=== PATIENT | male | born 1940 | race Caucasian/White ===

== ENCOUNTER 2017-09-10 11:13 | Emergency (ER) | payer MEDICARE, BC ==
[2017-09-10 11:32] VITALS: BP 00/00
--- NOTE | 2017-09-10 12:48 | RAD ---
HISTORY: Pain and swelling COMPARISONS: None VIEWS: 3, Frontal, lateral, and oblique views of the second digit of the left hand FINDINGS: BONE DENSITY: Normal. BONES: There is no displaced fracture. 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 There is osteoarthritis of the first CMC joint. ALIGNMENT: There is no dislocation. SOFT TISSUES: Unremarkable. OTHER FINDINGS: None. IMPRESSION: OSTEOARTHRITIS. NO ACUTE OSSEOUS INJURY. IF SYMPTOMS PERSIST, RECOMMEND REPEAT IMAGING.
--- NOTE | 2017-09-10 13:26 | UC ---
Howie Jackson Stephanie, [facility] on 09/10/17 at 1321 . Hand/Wrist HPI - HPI Summary HPI Summary: In- room note: The pt is a 77 y/o M presenting to with c/o swelling to his index finger on his L hand that began on 09/05/17. The pt states he poked his finger with a needle of a glucose monitor 1 week ago. Swelling began 5 days ago and has enlarged over the week. The pt has iced it and used heat on it however symptoms have not lessened. The pt states his last A1c was 7. note: Temp 99.1 F. 10/10 pain. Visit hx HTN, type 2 diabetes; on insulin and hydrochlorothiazide. No allergies to abx. Nurse Note: pt states he has a sore and swollen lt 2nd finger. pt states that some time on tuesday he poked himself with an insulin needle of his own that he had already used and he is unsure if this was even the finger. he states this finger began to hurt and to swell just after this incident. pt has no hx of gout. - History Of Current Complaint Chief Complaint: UCUpperExtremity Stated Complaint: FINGER PAIN Time Seen by Provider: 09/10/17 12:21 Hx Obtained From: Patient ?: No Onset/Duration: Gradual Onset, Lasting Days - 5, Still Present Severity Currently: Moderate Pain Intensity: 10 Pain Scale Used: 0-10 Numeric Aggravating Factor(s): Other - NOTHING Alleviating Factor(s): Nothing Associated Signs And Symptoms: Positive: Swelling, Redness - Allergies/Home Medications Allergies/Adverse Reactions: Allergies Allergy/AdvReac Type Severity Reaction Status Date / Time codeine Allergy Nausea Verified 09/10/17 11:33 metformin Allergy Diarrhea Verified 09/10/17 11:33 PMH/Surg Hx/FS Hx/Imm Hx Endocrine History: Diabetes Cardiovascular History: Cardiac Disease, Other Other Cardiovascular History: LEAKY VALVE, HEART MURMUR - Surgical History Surgical History: Yes Surgery Procedure, Year, and Place: BILAT ROTATOR CUFF SURGERIES [facility]. HEMORRHOIDECTOMY [facility] - Family History Known Family History: Positive: Diabetes, Other - CHF - Social History Occupation: Retired Lives: With Family Alcohol Use: Weekly Alcohol Amount: 4 NIGHTS/WEEK Substance Use Type: None Smoking Status (MU): Former Smoker Have You Smoked in the Last Year: No When Did the Patient Quit Smoking/Using Tobacco: 40 YRS AGO Review of Systems Constitutional: Negative Skin: Other - SWELLING AND ERYTHEMA OVER INDEX FINGER OF L HAND Eyes: Negative ENT: Negative Respiratory: Negative Cardiovascular: Negative Gastrointestinal: Negative Genitourinary: Negative Motor: Negative Neurovascular: Negative Musculoskeletal: Negative Neurological: Negative Psychological: Negative All Other Systems Reviewed And Are Negative: Yes Physical Exam - Summary Physical Exam Summary: Appearance: The patient is well-appearing, is in no pain distress, and is well- nourished. Eyes: Conjunctiva are clear. ENT: The hearing is grossly normal, the pharynx is normal, and the TMs are normal. There is no muffled or hoarse voice. Neck: The neck is supple and there is no lymphadenopathy. Respiratory: The chest is nontender. The lungs are clear, there are normal breath sounds, and there is no respiratory distress. Cardiovascular: Heart is regular rate and rhythm. 2/6 SYSTOLIC EJECTION MURMUR THAT RADIATES TO L NECK. Abdomen: The abdomen is soft and nontender. There is no organomegaly. Bowel sounds: present Musculoskeletal: Strength is intact. The patient moves all extremities. Neurological: The patient is alert. Psychological: The patient displays age appropriate behavior Skin: Negative for rashes. L INDEX FINGER SHOWS MODERATE SWELLING AT THE DIP WITH RESTRICTED FLEXION, AND FULL EXTENSION. THERES NO VOLAR PAIN ON THE FAT PAD OF THE DISTAL DIGIT. PAIN TO PALPATION IS PRIMARILY ON THE DORSUM AND THE ULNAR ASPECT OF THE L INDEX FINGER. THERES NO ASCENDING LYMPHANIGITIS OR CELLULITIS. THERE IS BRICK CAPILLARY REFILL. NO TENDERNESS OVER FLEXOR OR EXTENSOR TENDONS. Triage Information Reviewed: Yes Vital Signs: Initial Vital Signs Temp 99.1 F 09/10/17 11:27 Pulse 64 09/10/17 11:27 Resp 18 09/10/17 11:27 BP 00/00 09/10/17 11:27 Pulse Ox 99 09/10/17 11:27 Vital Signs Reviewed: Yes Diagnostics - Radiology Finger XRay Xray Interpretation: No Acute Changes Radiology Interpretation Completed By: Radiologist - OSTEOARTHRITIS. NO ACUTE OSSEOUS INJURY. IF SYMPTOMS PERSIST, RECOMMEND REPEAT IMAGING. physician has reviewed this report. Hand/Wrist Course/Dx - Course Course Of Treatment: 77 y/o M type 2 diabetic with evident cellulitis on dorsum of the L index finger, no ascending cellulitis or lymphangitis. physician will treat the pt for a non-purulent cellulitis with Keflex 500 mg 4x per day for 7 days. Medications have been included in the original chart and reviewed. - Differential Dx/Diagnosis Differential Diagnosis/HQI/PQRI: Other - cellulitis purulent vs non-purulent Provider Diagnoses: R index finger, non-purulent cellulitis in a type 2 diabetic Discharge - Sign-Out/Discharge Documenting (check all that apply): Discharge/Admit/Transfer - Discharge Plan Condition: Stable Disposition: HOME Prescriptions: Cephalexin CAP* [Keflex 500 CAP*] 500 mg PO QID #28 cap MDD 4 Patient Education Materials: Cellulitis (ED) Referrals: Noa Fernandez MD [Primary Care Provider] - 3 Days Additional Instructions: WE DISCUSSED: 1. You have a skin infection. 2. Recheck if you are not improving in 2 days. You may need another antibiotic. 3. Keflex 500mg, 4 times a day for 7 days. 4. Elevate. Warm moist heat to area for 10 minutes every 2 hours. 5. Call me Tuesday if you have any questions or concerns. - Billing Disposition and Condition Condition: STABLE Disposition: HOME The documentation as recorded by the Howie soriano Stephanie accurately reflects the service I personally performed and the decisions made by me, Bc Ann MD.
== END 2017-09-10 13:31 | disposition home or self-care (01) ==
LOC: UCEAST 11:13
DX: L03.011 Cellulitis of right finger (principal); E11.9 Type 2 diabetes mellitus without complications; Z79.4 Long term (current) use of insulin; I34.0 Nonrheumatic mitral (valve) insufficiency; R01.1 Cardiac murmur, unspecified; Z88.5 Allergy status to narcotic agent; Z88.8 Allergy status to other drugs, medicaments and biological substances; Z87.891 Personal history of nicotine dependence
CPT/HCPCS: 73140; 99212; G0463

== ENCOUNTER 2017-09-29 13:22 | Day surgery (SDC) | payer MEDICARE, OTHER ==
[~2017-09-29 13:22] MED LIST: Buffered Lidocaine 0.9% SYRIN* 5 ML/SYR SYRINGE INTRADERM ONE; Famotidine IV* 10 MG/ML 2 ML (20 mg) IV ONE; Famotidine IV* 10 MG/ML 2 ML (20 mg) ONE
[2017-09-29] MEDS ORDERED: Bupivacaine 0.25% SDV* 30 ML ONE ×2 (15:46→16:28)
[2017-09-29 17:16] VITALS: BP 167/67
--- NOTE | 2017-10-01 08:49 | OP ---
DATE OF OPERATION: 09/29/17 - [facility] DATE OF : 38 SURGEON: Jorden Silva MD AERIAL HURRICANE HUNTER: ELIZABETH Ledesma ANESTHESIOLOGIST: None. ANESTHESIA: Local only with digital block performed via 0.25% plain Marcaine. PRE-OP DIAGNOSIS: Concern for left index finger middle phalanx osteomyelitis, cannot rule out gout of the distal interphalangeal joint. 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 OPERATIVE PROCEDURE: 1. Chandler of bone culture distal aspect of left index finger middle phalanx together with specimen sent for permanent pathology. 2. Attempted aspiration of the left index finger distal interphalangeal joint. INDICATIONS: Waylon has had quite a bit of left index finger pain. He is a diabetic. His MRI findings were concerning for osteomyelitis. I was in communication with his primary care doctor, Dr. Ladarius Garcia, and infectious disease doctor, Dr. Patel. Together we had decided and they wanted me to see if I can get a bone culture and some specimen for permanent pathology. Dr. Patel asked to see if I could get some fluid out of the DIP joint to send for crystal analysis. I told them that it is difficult to get any fluid out of the DIP joint, but I would certainly try. ESTIMATED BLOOD LOSS: 1 mL. COMPLICATIONS: None. FINDINGS: There was some inflamed-looking periarticular soft tissue. The bone was actually quite sclerotic. The DIP joint aspiration was dry. DESCRIPTION OF PROCEDURE: Waylon was seen in the preoperative holding area. The correct side, site, and procedure were identified. We came back to the operating room where the digital block was performed with 0.25% plain Marcaine. The hand was prepped and draped in the usual fashion. A time-out was performed. I began by placing a Tourni-Cot on the index finger and this was left on proximally throughout the case. I then made an incision over the dorsal ulnar aspect of the middle phalanx. This was teed back transversely over about half the course of the DIP joint. Full-thickness flaps were raised. The extensor tendon was exposed, the collateral ligament was exposed. I brought in first a 1 -cc syringe with a 27-gauge needle and had a dry aspiration. I then changed this for a 3-cc syringe with a 25- gauge needle and again I had a dry aspiration. The needle was definitely in the joint, there was simply no fluid to be aspirated. I then raised subperiosteal flap off the dorsal ulnar aspect of the middle phalanx. I used a K-wire to open the bony cortex in a couple of spots. Once I had a cortical window, I used the microcurette to obtain bone for culture as well as for permanent pathology. Additionally, there was some very inflamed periarticular soft tissue that I had sent for culture. Once I had procured the specimens, I irrigated out the wound. The skin was closed with 4-0 nylon suture. Wound was dressed with soft dressings. The finger pinked up immediately after the Tourni-Cot was removed. He was taken to the recovery room in stable condition. [id number]/[facility] #: [id number] FAVIOLA
== END 2017-09-29 17:25 | disposition home or self-care (01) ==
LOC: OREAST 13:22
PROVIDERS: ATTEND Orthopaedic Surgery Hand Surgery
DX: M86.242 Subacute osteomyelitis, left hand (principal); E11.9 Type 2 diabetes mellitus without complications; Z79.4 Long term (current) use of insulin; I10 Essential (primary) hypertension; G47.33 Obstructive sleep apnea (adult) (pediatric); I25.10 Atherosclerotic heart disease of native coronary artery without angina pectoris; E78.5 Hyperlipidemia, unspecified; G62.9 Polyneuropathy, unspecified; Z87.891 Personal history of nicotine dependence
CPT/HCPCS: 87070; 87073; 87205; 88304; 88311; C1776

== ENCOUNTER → 2018-02-05 14:34 | Emergency (ER) | payer MEDICARE, BC ==
[~2018-02-05 14:34] MED LIST changes: -Buffered Lidocaine 0.9% SYRIN* 5 ML/SYR SYRINGE INTRADERM ONE; -Famotidine IV* 10 MG/ML 2 ML (20 mg) IV ONE; -Famotidine IV* 10 MG/ML 2 ML (20 mg) ONE; +Ibuprofen TAB* 600 MG ONE; +Ibuprofen TAB* 600 MG PO ONE
--- NOTE | 2018-02-05 16:09 | ED ---
Throat Pain/Nasal Congestion - HPI Summary HPI Summary: The patient is a 78 y/o M presenting to [facility] with a chief complaint of an extremely sore throat with erythema starting 3 days ago. The pain is currently rated 8/10 in severity. He states that he's never had a sore throat that hurts as bad as this one. He additionally reports that he has nasal congestion and a productive cough that started this morning. He has hx of diabetes and HTN. - History of Current Complaint Chief Complaint: EDThroatPain Time Seen by Provider: 02/05/18 15:31 Hx Obtained From: Patient Onset/Duration: Lasting Days - 3 days, Still Present Severity: Severe Cough: Productive - Allergies/Home Medications Allergies/Adverse Reactions: Allergies Allergy/AdvReac Type Severity Reaction Status Date / Time codeine Allergy Nausea Verified 02/05/18 14:43 metformin Allergy Diarrhea Verified 02/05/18 14:43 PMH/Surg Hx/FS Hx/Imm Hx Endocrine/Hematology History: Reports: Hx Diabetes - II requiring insulin Cardiovascular History: Reports: Hx Coronary Artery Disease - CATH 2011 NO STENTS, Hx Hypertension - WELL CONTROLLED Denies: Hx Pacemaker/ICD Respiratory History: Reports: Hx Sleep Apnea GI History: Denies: Hx Gastrointestinal Bleed, Hx Ulcer History: Denies: Hx Renal Disease Musculoskeletal History: Denies: Hx Rheumatoid Arthritis, Hx Osteoporosis Sensory History: Reports: Hx Cataracts - LEFT, Hx Contacts or Glasses - GLASSES Denies: Hx Hearing Aid Opthamlomology History: Reports: Hx Cataracts - LEFT, Hx Contacts or Glasses - GLASSES Psychiatric History: Denies: Hx Panic Disorder - Surgical History Surgery Procedure, Year, and Place: BILAT ROTATOR CUFF SURGERIES [facility] [place]. HEMORRHOIDECTOMY [facility] [place] Hx Anesthesia Reactions: No Infectious Disease History: No Infectious Disease History: Denies: Traveled Outside the [place] in Last 30 Days - Family History Known Family History: Positive: Diabetes, Other - CHF - Social History Alcohol Use: Occasionally Alcohol Amount: 4 NIGHTS/WEEK Substance Use Type: Reports: None Hx Tobacco Use: No Smoking Status (MU): Former Smoker Have You Smoked in the Last Year: No Review of Systems Positive: Sore Throat - with erythema, Other - nasal congestion Positive: Cough - productive All Other Systems Reviewed And Are Negative: Yes Physical Exam - Summary Physical Exam Summary: Appearance: The patient is well-nourished in no acute distress and in no acute pain. Skin: The skin is warm and dry and skin color reflects adequate perfusion. HEENT: The head is normocephalic and atraumatic. The pupils are equal and reactive. The conjunctivae are clear and without drainage. Nares are patent with congestion. Mouth reveals moist mucous membranes and the throat is erythematous with mild anterior cervical lymphadenopathy but no exudates. The external ears are intact. The ear canals are patent and without drainage. The tympanic membranes are intact. Neck: The neck is supple with full range of motion and non-tender. There are no carotid bruits. There is no neck vein distension. Respiratory: Chest is non-tender. Lungs are clear to auscultation and breath sounds are symmetrical and equal. Cardiovascular: Heart is regular rate and rhythm. There is no murmur or rub auscultated. There is no peripheral edema and pulses are symmetrical and equal. Abdomen: The abdomen is soft and non-tender. There are normal bowel sounds heard in all four quadrants and there is no organomegaly palpated. Musculoskeletal: There is no back tenderness noted. Extremities are non-tender with full range of motion. There is good capillary refill. There is no peripheral edema or calf tenderness elicited. Neurological: Patient is alert and oriented to person, place and time. The patient has symmetrical motor strength in all four extremities. Cranial nerves are grossly intact. Deep tendon reflexes are symmetrical and equal in all four extremities. Psychiatric: The patient has an appropriate affect and does not exhibit any anxiety or depression. Triage Information Reviewed: Yes Vital Signs On Initial Exam: Initial Vitals Temp Pulse Resp BP Pulse Ox 98.1 F 86 18 137/48 95 02/05/18 14:42 02/05/18 14:42 02/05/18 14:42 02/05/18 14:42 02/05/18 14:42 Vital Signs Reviewed: Yes Diagnostics - Vital Signs Vital Signs Temp Pulse Resp BP Pulse Ox 02/05/18 14:42 98.1 F 86 18 137/48 95 - Laboratory Lab Results: Lab Results 02/05/18 Range/Units 15:38 Group A Strep Rapid Negative (Negative) Lab Statement: Any lab studies that have been ordered have been reviewed, and results considered in the medical decision making process. - Radiology CXR Xray Interpretation: No Acute Changes - No active cardiopulmonary disease is noted. ED physician has reviewed this report. Radiology Interpretation Completed By: Radiologist Re-Evaluation - Re-Evaluation First Eval Re-Evaluation Time: 17:20 Change: Improved Comment: I spoke with the patient about CXR and lab results. He will be discharged home. EENT Course/Dx - Course Course Of Treatment: Mr. Dillard presented to the emergency department complaining of a sore throat for couple of days and now a cough. He is also congested nasally. He looked fairly miserable but his vitals are stable. His rapid strep test was negative. Chest x-ray was negative for any acute process. This is most likely a viral syndrome. - Diagnoses Provider Diagnoses: Viral syndrome Discharge - Sign-Out/Discharge Documenting (check all that apply): Patient Departure - Patient will be discharged home. - Discharge Plan Condition: Stable Disposition: HOME Patient Education Materials: Viral Syndrome (ED) Referrals: Noa Fernandez MD [Primary Care Provider] - 3 Days Additional Instructions: Please follow up with your primary care provider in 2-3 days. Return to the emergency department for any new or worsening symptoms. - Billing Disposition and Condition Condition: STABLE Disposition: Home - Attestation Statements Document Initiated by Scribe: Yes Documenting Scribe: Marium Zamorano Provider For Whom Marciaibfrank is Documenting (Include Credential): Dr. Kenny Ortega MD Scribe Attestation: Marium Jackson scribed for Dr. Kenny Ortega MD on 02/05/18 at 1859. Scribe Documentation Reviewed: Yes Provider Attestation: The documentation as recorded by the Marium soriano accurately reflects the service I personally performed and the decisions made by me, Dr. Kenny Ortega MD
--- NOTE | 2018-02-05 16:51 | RAD ---
Indication: Cough. 2 views of the chest including dual energy PA views demonstrate no mediastinal shift. Heart is of normal size and configuration. Lungs are clear. IMPRESSION: No active cardiopulmonary disease is noted.
[2018-02-05 17:34] VITALS: BP 156/64
== END | disposition home or self-care (01) ==
LOC: ED 14:34
DX: B34.9 Viral infection, unspecified (principal); Z87.891 Personal history of nicotine dependence; E11.9 Type 2 diabetes mellitus without complications; I10 Essential (primary) hypertension; Z79.4 Long term (current) use of insulin
CPT/HCPCS: 71046; 87651; 99282; A9270-GY

== ENCOUNTER 2018-02-06 16:24 | Inpatient (IN) | payer MEDICARE, BC ==
[2018-02-06 17:13] LABS: ABS Basophils 0 10^3/ul (0-0.2); ABS Eosinophils 0 10^3/ul (0-0.6); ABS Lymphocytes 0.5 10^3/ul (1.0-4.8); ABS Neutrophils 10.1 10^3/ul (1.5-7.7); ABS Nucleated RBC 0 10^3/ul; Eosinophil % 0 % (0-6); Hematocrit 39 % (42-52); Hemoglobin 13.2 g/dl (14.0-18.0); Lymphocyte % 4.2 % (25-47); Mean Corpuscular HGB Conc 34 g/dl (31-36); Mean Corpuscular Hemoglobin 32 pg (27-31); Mean Corpuscular Volume 94 fL (80-94); Mean Platelet Volume 9.8 um3 (7.4-10.4); Nucleated Red Blood Cells % 0; Platelet Count 170 10^3/ul (150-450); Red Blood Count 4.11 10^6/ul (4.00-5.40); Red Cell Distribution Width 14 % (10.5-15); White Blood Count 11.7 10^3/ul (3.5-10.8)
--- NOTE | 2018-02-06 17:20 | RAD ---
Indication: Cough, shortness of breath. 2 views of the chest are reviewed. There is pleural thickening in the right lower lung base. Linear density in the right midlung field likely representing some atelectasis. This was not present on February 05, 2018. Left lung field is clear. IMPRESSION: Minimal atelectasis in the left midlung zone.
[2018-02-06] MEDS ORDERED: Albuterol/Ipratropium NEB.SOL* Albuterol 2.5 MG/Ipratropium 0.5 MG 3 ML INH ONE (18:12)
[2018-02-06] MEDS ORDERED: NS 0.9% 1000 ML* 1,000 ML IV ONE (18:12)
[2018-02-06] MEDS ORDERED: Levofloxacin 750 MG IVPREMIX(* 750 MG/150 ML BAG IVPB ONE (18:14)
--- NOTE | 2018-02-06 18:21 | ED ---
Respiratory - HPI Summary HPI Summary: Pt is a 78 year old M presenting to the ED with a chief respiratory complaint. The pt was here yesterday for a very productive cough onset about 1 week ago. The pt is currently at 90% on 2L of O2. The pt reports minimal post nasal drip, cough, congestion, sore throat, fevers, and fatigue. The pt reports a hx of sleep apnea and heart valve problems. The pt is not a smoker and no one else in the house is sick. He has gotten his flu and pneumonia shots. The pt denies CHF or PA. The pt reports a hx of HTN and IDDM. - History of Current Complaint Chief Complaint: EDRespiratoryDistress Stated Complaint: CONGESTION/FEVER/COUGH Time Seen by Provider: 02/06/18 18:00 Hx Obtained From: Patient Onset/Duration: Gradual Onset, Lasting Weeks, Still Present Initial Severity: Moderate Current Severity: Moderate Pain Intensity: 0 Character: Wheezing, Cough (Productive), Dyspnea at Rest Sputum Amount: Large Sputum Color: Yellow Aggravating Factor(s): Nothing Alleviating Factor(s): Nothing Associated Signs and Symptoms: Fever, SOB, Wheezing, Nasal Congestion - Allergy/Home Medications Allergies/Adverse Reactions: Allergies Allergy/AdvReac Type Severity Reaction Status Date / Time codeine Allergy Nausea Verified 02/06/18 17:03 metformin Allergy Diarrhea Verified 02/06/18 17:03 Home Medications: Home Medications Colchicine* [Colcrys*] 0.6 mg PO DAILY PRN 02/06/18 [History Confirmed 02/06/18] Cyanocobalamin TAB* [Vitamin B12 TAB*] 2,000 mcg PO DAILY 02/06/18 [History Confirmed 02/06/18] Doxazosin TAB* [Cardura TAB*] 2 mg PO BEDTIME 02/06/18 [History Confirmed ] Irbesartan (NF) [Avapro (NF)] 300 mg PO DAILY 02/06/18 [History Confirmed ] Multivitamins/Minerals TAB* [Theragran/minerals TAB*] 1 tab PO DAILY 02/06/18 [ History Confirmed 02/06/18] [place]-3 Fatty Acids (Nf) [Fish Oil (NF)] 1,000 mg PO DAILY 02/06/18 [History Confirmed 02/06/18] traMADol TAB* [Ultram*] 50 - 100 mg PO Q6HR PRN 02/06/18 [History Confirmed ] PMH/Surg Hx/FS Hx/Imm Hx Previously Healthy: No Endocrine/Hematology History: Reports: Hx Diabetes - II requiring insulin Cardiovascular History: Reports: Hx Coronary Artery Disease - CATH 2011 NO STENTS, Hx Hypertension - WELL CONTROLLED, Other Cardiovascular Problems/ Disorders - MURMUR, "LEAKY VALVE" Denies: Hx Congestive Heart Failure, Hx Myocardial Infarction, Hx Pacemaker/ ICD Respiratory History: Reports: Hx Sleep Apnea GI History: Denies: Hx Gastrointestinal Bleed, Hx Ulcer History: Denies: Hx Renal Disease Musculoskeletal History: Denies: Hx Rheumatoid Arthritis, Hx Osteoporosis Sensory History: Reports: Hx Cataracts - LEFT, Hx Contacts or Glasses - GLASSES Denies: Hx Hearing Aid Opthamlomology History: Reports: Hx Cataracts - LEFT, Hx Contacts or Glasses - GLASSES Psychiatric History: Denies: Hx Panic Disorder - Surgical History Surgery Procedure, Year, and Place: BILAT ROTATOR CUFF SURGERIES [facility]. HEMORRHOIDECTOMY [facility] Hx Anesthesia Reactions: No Infectious Disease History: No Infectious Disease History: Denies: Traveled Outside the [place] in Last 30 Days - Family History Known Family History: Positive: Diabetes, Other - CHF - Social History Alcohol Use: Weekly Alcohol Amount: 4 NIGHTS/WEEK Substance Use Type: Reports: None Hx Tobacco Use: No Smoking Status (MU): Former Smoker Have You Smoked in the Last Year: No Review of Systems Positive: Fever Positive: Nasal Discharge Positive: Shortness Of Breath, Cough Neurological: Other - fatigue All Other Systems Reviewed And Are Negative: Yes Physical Exam - Summary Physical Exam Summary: Appearance: Well appearing, no pain distress Skin: warm, dry, reflects adequate perfusion Head/face: surgical scar on R forehead. Eyes: EOMI, KIMMY ENT: productive yellowish sputum, throat mildly erythematous, clear nasal discharge. Neck: supple, non-tender Respiratory: Coarse breath sounds in the bases of the lungs Cardiovascular: RRR, pulses symmetrical Abdomen: non-tender, soft Bowel Sounds: present Musculoskeletal: normal, strength/ROM intact, no lower extremity edema or JVD Neuro: normal, sensory motor intact, A&Ox3 Triage Information Reviewed: Yes Vital Signs On Initial Exam: Initial Vitals Temp Pulse Resp BP Pulse Ox 99.7 F 78 20 178/53 95 02/06/18 16:58 02/06/18 16:58 10/15/18 16:58 02/06/18 16:58 02/06/18 16:58 Vital Signs Reviewed: Yes Diagnostics - Vital Signs Vital Signs Temp Pulse Resp BP Pulse Ox 02/06/18 18:05 89 17 171/65 91 02/06/18 18:04 86 20 91 02/06/18 16:58 99.7 F 78 20 178/53 95 - Laboratory Lab Results: Lab Results 02/06/18 02/06/18 02/06/18 Range/Units 16:40 16:40 16:40 WBC 11.7 H (3.5-10.8) 10^3/ul RBC 4.11 (4.00-5.40) 10^6/ul Hgb 13.2 L (14.0-18.0) g/dl Hct 39 L (42-52) % MCV 94 (80-94) fL MCH 32 H (27-31) pg MCHC 34 (31-36) g/dl RDW 14 (10.5-15) % Plt Count 170 (150-450) 10^3/ul MPV 9.8 (7.4-10.4) um3 Neut % (Auto) 86.6 H (38-83) % Lymph % (Auto) 4.2 L (25-47) % Whitfield % (Auto) 9.0 H (0-7) % Eos % (Auto) 0 (0-6) % Baso % (Auto) 0.2 (0-2) % Absolute Neuts (auto) 10.1 H (1.5-7.7) 10^3/ul Absolute Lymphs (auto) 0.5 L (1.0-4.8) 10^3/ul Absolute Monos (auto) 1.0 H (0-0.8) 10^3/ul Absolute Eos (auto) 0 (0-0.6) 10^3/ul Absolute Basos (auto) 0 (0-0.2) 10^3/ul Absolute Nucleated RBC 0 10^3/ul Nucleated RBC % 0 Lactic Acid 0.9 (0.5-2.0) mmol/L Troponin I 0.06 H* (<0.04) ng/mL C-Reactive Protein 139.24 H (<8.01) mg/L B-Natriuretic Peptide ( - 100) pg/mL 02/06/18 Range/Units 16:40 WBC (3.5-10.8) 10^3/ul RBC (4.00-5.40) 10^6/ul Hgb (14.0-18.0) g/dl Hct (42-52) % MCV (80-94) fL MCH (27-31) pg MCHC (31-36) g/dl RDW (10.5-15) % Plt Count (150-450) 10^3/ul MPV (7.4-10.4) um3 Neut % (Auto) (38-83) % Lymph % (Auto) (25-47) % Whitfield % (Auto) (0-7) % Eos % (Auto) (0-6) % Baso % (Auto) (0-2) % Absolute Neuts (auto) (1.5-7.7) 10^3/ul Absolute Lymphs (auto) (1.0-4.8) 10^3/ul Absolute Monos (auto) (0-0.8) 10^3/ul Absolute Eos (auto) (0-0.6) 10^3/ul Absolute Basos (auto) (0-0.2) 10^3/ul Absolute Nucleated RBC 10^3/ul Nucleated RBC % Lactic Acid (0.5-2.0) mmol/L Troponin I (<0.04) ng/mL C-Reactive Protein (<8.01) mg/L B-Natriuretic Peptide 233 H ( - 100) pg/mL Result Diagrams: 02/06/18 16:40 02/06/18 16:40 Lab Statement: Any lab studies that have been ordered have been reviewed, and results considered in the medical decision making process. - Radiology 1631 - CXR Xray Interpretation: Positive (See Comments) - Minimal atelectasis in the left midlung zone Radiology Interpretation Completed By: Radiologist - ED physician has reviewed this report. - CT Chest CT CT Interpretation: Positive (See Comments) - Mild consolidation. Not yet reviewed by radiologist. CT Interpretation Completed By: ED Physician Disposition - Course Course Of Treatment: Patient with harsh cough, body aches, fever and cough that is productive of a thick yellow sputum. There is no definite infiltrate on x- ray and so a CAT scan was performed. This reading was pending at time of disposition. The patient requires admission given that he is hypoxic into the 80s. He requires 4 L of oxygen to bring him above 93%. I discussed the case with the hospitalist who will admit. Working diagnosis is pneumonia, hypoxia. - Differential Dx - Cardiopulmonary Differential Diagnoses - Cardiopulmonary: Other - Bacterial pneumonia, viral pneumonia, congestive heart failure, sepsis syndrome - Diagnoses Provider Diagnoses: Community acquired pneumonia, Hypoxia - Critical Care Time Critical Care Time: 30-74 min - Critical care time is exclusive of separately billable procedures Discharge - Sign-Out/Discharge Documenting (check all that apply): Patient Departure - admit - Discharge Plan Condition: Fair Disposition: ADMITTED TO [facility] Referrals: Noa Fernandez MD [Primary Care Provider] - - Billing Disposition and Condition Condition: FAIR Disposition: Admitted to [facility] - Attestation Statements Document Initiated by Scribe: Yes Documenting Scribe: Valerie Hull Provider For Whom Scribe is Documenting (Include Credential): Bob Bertrand MD. Scribe Attestation: Valerie Jackson, scribed for Bob Bertrand MD. on 02/06/18 at 1900. Scribe Documentation Reviewed: Yes Provider Attestation: The documentation as recorded by the bautistaibValerie marie accurately reflects the service I personally performed and the decisions made by , Bob Bertrand MD. Consult Consult: [id number] Greer who will be admitting the pt to the hospital.
[2018-02-06 18:54] LABS: EGFR Non-African American 63.2 (>60)
--- NOTE | 2018-02-06 19:12 | RAD ---
EXAM: CT Chest Without Intravenous Contrast EXAM DATE/TIME: 02/06/2018 6:29 PM CLINICAL HISTORY: 78 years old, male; Signs and symptoms; Cough; Additional info: Hypoxia, productive cough TECHNIQUE: Axial computed tomography images of the chest without intravenous contrast. All CT scans at this facility use at least one of these dose optimization techniques: automated exposure control; mA and/or kV adjustment per patient size (includes targeted exams where dose is matched to clinical indication); or iterative reconstruction. Coronal and sagittal reformatted images were created and reviewed. COMPARISON: DX CXR CHEST PA LAT 2 VWS 02/05/2018 4:01 PM FINDINGS: Thyroid: Mildly heterogeneous thyroid with few dystrophic calcifications. No focal nodules. Lungs: Right lung and left lower lobe perihilar mainly centrilobular nodules. For example nodules apical posterior segment right upper lobe measuring 0.7 cm (series 3, image 22) and posterior basal segment right lower lobe measuring 1.7 cm (series 3, image 35). Associated peribronchial thickening. No bronchiectasis or luminal filling defects. No masses or consolidation. Pleural space: Normal. No pneumothorax. No pleural effusion. Heart: There is severe atherosclerotic calcification of the coronary arteries. Aorta: The aorta demonstrates moderate atherosclerotic calcification. Lymph nodes: Normal. No enlarged lymph nodes. Bones/joints: The thoracic spine demonstrates moderate degenerative changes at multiple levels. Mild bilateral shoulder primary osteoarthritis. No fractures. No suspicious bone lesions. Soft tissues: Normal. Gallbladder and bile ducts: Calcified gallstones with no pericholecystic fluid or gall bladder wall thickening. Kidneys and ureters: Partially visualized right renal simple cyst measures 6.9 cm (series 2, image 71). Smaller fluid attenuating exophytic focus left superior pole measures 1.2 cm (series 2, image 67). IMPRESSION: 1. Lung findings with etiologies including pneumonia, hypersensitivity pneumonitis, respiratory bronchiolitis, and less likely milliary infection including TB and fungus. 2. Cholelithiasis. 3. Bilateral Bosniak type II renal cysts. No followup is indicated. To contact [facility] with a general question: [facility] - [phone] For direct physician to physician contact: Physician Hotline - [phone] [facility] ([facility] Facility ID #[id number])
[2018-02-06] MEDS ORDERED: Albuterol/Ipratropium NEB.SOL* Albuterol 2.5 MG/Ipratropium 0.5 MG 3 ML INH PRN (19:26)
[2018-02-06] MEDS ORDERED: Magnesium Hydroxide LIQ* 30 ML UDC PO PRN (19:26)
[2018-02-06] MEDS ORDERED: Al Hydrox/Mg Hydrox/Simet LIQ* 30 ML UDC PO PRN (19:26)
[2018-02-06] MEDS ORDERED: Ondansetron INJ* 2 MG/ML VIAL IV PRN (19:26)
[2018-02-06] MEDS ORDERED: Dextrose 50% Syringe 50 ML* 25 GM/50 ML SYRINGE IV PUSH PRN (19:42)
[2018-02-06] MEDS ORDERED: Insulin GLARGINE(*) 1 UNITS UNIT SUBCUT SCH (21:00)
--- NOTE | 2018-02-06 21:57 | HP ---
AMENDED REPORT NOW INCLUDES COSIGNER DESIGNATION CC: Noa Fernandez MD * HISTORY AND PHYSICAL: DATE OF ADMISSION: 02/06/18 PATIENT OF ATTENDING HOSPITALIST: Dr. Daysi Greer.* (DICTATED BY ELIZABETH ENAMORADO) PRIMARY CARE PROVIDER: Noa Fernandez MD ATTENDING HOSPITALIST WHILE PATIENT HERE: Dr. Moraima Montague. CHIEF COMPLAINT: Cough and shortness of breath. HISTORY OF PRESENT ILLNESS: Mr. Dillard is a 78-year-old gentleman with a past medical history significant for hypertension, insulin-dependent diabetes mellitus, obstructive sleep apnea, who presented to the emergency room today with a 1-week history of worsening upper respiratory symptoms. The patient informed me that he had symptoms consistent with cold with intermittent dry cough, sore throat, congestion, and fatigue gradually over the past few days, converted to a productive cough with wheezing, difficulty breathing, low-grade fever, and not feeling well at all. He was seen at his primary care physician' s office earlier today and clinical diagnosis of pneumonia was made for which the patient was advised to go to the emergency room for further evaluation. The patient himself denied any chest pain and has no history of asthma or COPD; however, he noticed increasing dyspnea at rest and wheezing as well as productive cough with yellow thick sputum. He denies any history of pneumonia in the past. He did have his pneumonia vaccination recently and had his flu shot for the year. He was evaluated in the emergency room and found to have mild leukocytosis with white count of 11,000. He had a chest x- ray that revealed possible bilateral basilar atelectasis that was not quite conclusive for pneumonia for which a CT scan of the chest was obtained that showed findings consistent with pneumonia and respiratory bronchitis. Given his ongoing symptoms, we were asked to see the patient to consider admission for pneumonia. PAST MEDICAL HISTORY: As mentioned above, significant for hypertension, insulin - dependent diabetes mellitus, obstructive sleep apnea, gouty arthritis. He denies history of coronary artery disease. PAST SURGICAL HISTORY: Significant for: 1. Coronary catheterization with no stenting done. 2. Four separate bilateral shoulder surgery for repair of bilateral rotator cuff. 3. Basal cell carcinoma excision from the scalp about a week ago. CURRENT MEDICATIONS: His medications at home include: 1. Aspirin 81 mg p.o. daily. 2. Lipitor 20 mg p.o. daily. 3. Vitamin D 1000 mcg p.o. daily. 4. Colchicine 0.6 mg p.o. daily. 5. Vitamin B12 2000 mcg p.o. daily. 6. Cardura 2 mg p.o. q.h.s. 7. Eplerenone 50 mg p.o. daily. 8. Felodipine 10 mg p.o. daily. 9. Hydrochlorothiazide 25 mg p.o. daily. 10. Insulin NovoLog 13 units subcu t.i.d. before meals. 11. Insulin Levemir 66 units subcu q.p.m. 12. Irbesartan 300 mg p.o. daily. 13. Multivitamin 1 tablet p.o. daily. 14. [place]-3 fatty acids 1000 mg p.o. daily. 15. Cialis 1 to 2 tablets as needed. 16. Tramadol 50 mg p.o. q.6 hours as needed for pain. ALLERGIES: Include CODEINE, METFORMIN, LABETALOL, and METOPROLOL. FAMILY HISTORY: Reviewed and noncontributory. SOCIAL HISTORY: The patient is a nonsmoker. Denies alcohol intake. He lives with his , who is the healthcare proxy and he wishes to be a full code. REVIEW OF SYSTEMS: See HPI, otherwise 12 points review of system were examined and were essentially negative. PHYSICAL EXAMINATION GENERAL: He is a pleasant, obese, older gentleman in no acute distress or discomfort at the time of admission. VITAL SIGNS: Revealed temperature of 99.7, pulse of 86, blood pressure of 171/ 65, respiration of 17 with O2 sat of 99% on 3 L oxygen via nasal cannula. HEENT: Head is normocephalic, atraumatic. Sclerae anicteric. EOMs intact. Oropharynx is with mild pharyngeal erythema noted. No exudate. NECK: Supple. Trachea midline. No cervical adenopathy or thyromegaly. LUNGS: There are decreased breath sounds noted. There is diffuse mild wheezing more profound at the bases, appeared to be improved after DuoNeb treatment in the emergency room. There are mild bibasilar rhonchi as well with deep inspiration. HEART: Regular rate and rhythm without rubs, murmurs, or gallops. BACK: With normal curvature. No CVA tenderness. ABDOMEN: Soft, nontender, nondistended. There are no hernias, masses, or hepatosplenomegaly. EXTREMITIES: Without cyanosis, clubbing, or edema. NEUROLOGIC: He is awake, alert, and oriented x3. Handgrip is equal bilaterally. Sensation is intact throughout. RECTAL: Exam deferred at this time. LABORATORY WORKUP: CBC with a white count of 11,700, hemoglobin of 13.2, hematocrit of 39, and platelets of 170. Chemistry panel with sodium of 129, potassium 3.9, chloride 94, BUN of 22, and creatinine of 1.12. His glucose is 116. Total bilirubin 2.2. Troponin is elevated at 0.06; however, appeared to be at baseline compared to prior result. C-reactive protein elevated at 139. BNP 233. ACCESSORY DIAGNOSTIC DATA: As mentioned above, chest CT was consistent with pneumonia. EKG with no ST changes. ASSESSMENT: A 78-year-old gentleman with history of hypertension, obstructive sleep apnea, and insulin-dependent diabetes mellitus who presents to the emergency room with a 1-week history of worsening upper respiratory symptoms, found to have productive cough, fever, wheezing, shortness of breath, and CT scan findings consistent with pneumonia for which he will be admitted under hospitalist services for the following assessment and plan. 1. Community-acquired pneumonia. The patient received a dose of Levaquin in the emergency room and we will continue his coverage with Rocephin and azithromycin. We will use supplemental oxygen as needed to maintain his oxygen saturation above 95%. He received 2 DuoNeb nebulizers in the emergency room with improvement in his breathing and we will continue his DuoNeb coverage q.4 hours while he is awake and add prednisone 40 mg daily to help improvement of his respiratory functions. I also added Mucinex to be taken to help secrete his sputum. Right at the moment, his sputum cultures and Gram stains are pending. 2. Hypertension. The patient was hypertensive upon admission. I will continue all his home regimen including hydrochlorothiazide, irbesartan, and felodipine. 3. Hyperlipidemia. I will continue his statin therapy. 4. Insulin-dependent diabetes mellitus. The patient will continue his coverage with Lantus every night as well as lispro per sliding scale q.a.c. and q.h.s. 5. DVT prophylaxis. He is a high risk and will be covered with subcu heparin. 6. Code status. He wishes to be a full code. 7. Disposition. Admit to telemetry for treatment of community-acquired pneumonia. Urine antigen for Legionella and Strep pneumoniae are pending at the time of admission. Continue coverage with ceftriaxone and azithromycin. Symptomatic management with oxygen supplement, cough depressant and await sputum culture and Gram stain. We will follow him up accordingly. TIME SPENT: Approximately 60 minutes were spent admitting this patient for which greater than 50% of that time on taking history and performing physical exam. I went on and discussed the case with my attending, who agreed to plan of care and will follow him up accordingly. ELIZABETH ENAMORADO [id number]/[facility] #: [id number] FAVIOLA
[2018-02-06] MEDS: predniSONE TAB* 20 MG PO SCH (22:12)
[2018-02-06] MEDS: guaiFENesin ER TAB 600 MG PO SCH (22:12)
[2018-02-06] MEDS: Doxazosin TAB* 2 MG PO SCH (22:13)
[2018-02-06] MEDS: Heparin VIAL(*) 5000 UNITS/ML VIAL (FIVE THOUSAND) SUBCUT SCH (22:13)
[2018-02-06] MEDS: Insulin LISPRO* 1 UNITS UNIT SUBCUT SCH (22:37)
[2018-02-06] MEDS: Acetaminophen TAB* 325 MG PO PRN (23:40)
[2018-02-07] MEDS: Benzocaine/Menthol LOZ* 1 LOZENGE PO PRN ×2 (05:07→20:17)
[2018-02-07] MEDS: Heparin VIAL(*) 5000 UNITS/ML VIAL (FIVE THOUSAND) SUBCUT SCH ×3 (05:09→21:12)
[2018-02-07] MEDS: cefTRIAXone(*) 1 GM in NS 0.9% 50 ML* 50 ML IVPB SCH (05:16)
[2018-02-07 06:55] LABS: ABS Basophils 0 10^3/ul (0-0.2); ABS Eosinophils 0 10^3/ul (0-0.6); ABS Lymphocytes 0.3 10^3/ul (1.0-4.8); ABS Monocytes 0.5 10^3/ul (0-0.8); ABS Neutrophils 7.4 10^3/ul (1.5-7.7); ABS Nucleated RBC 0 10^3/ul; Eosinophil % 0 % (0-6); Hematocrit 36 % (42-52); Hemoglobin 12.5 g/dl (14.0-18.0); Mean Corpuscular HGB Conc 35 g/dl (31-36); Mean Corpuscular Hemoglobin 33 pg (27-31); Mean Corpuscular Volume 93 fL (80-94); Mean Platelet Volume 9.8 um3 (7.4-10.4); Nucleated Red Blood Cells % 0; Platelet Count 142 10^3/ul (150-450); Red Blood Count 3.81 10^6/ul (4.00-5.40); Red Cell Distribution Width 14 % (10.5-15); White Blood Count 8.3 10^3/ul (3.5-10.8)
[2018-02-07 06:58] LABS: EGFR Non-African American 56.2 (>60)
[2018-02-07] MEDS: Insulin LISPRO* 1 UNITS UNIT SUBCUT SCH ×5 (08:15→20:18)
[2018-02-07] MEDS: Cholecalciferol TAB* 1000 UNITS PO SCH (08:16)
[2018-02-07] MEDS: Aspirin 81 mg CHEW TAB* 81 MG TAB.CHEW PO SCH (08:16)
[2018-02-07] MEDS: Cyanocobalamin TAB* 500 MCG PO SCH (08:17)
[2018-02-07] MEDS: Hydrochlorothiazide TAB* 25 MG PO SCH (08:17)
[2018-02-07] MEDS: Atorvastatin* 20 MG TAB PO SCH (08:18)
[2018-02-07] MEDS: Losartan TAB* 25 MG PO SCH (08:18)
[2018-02-07] MEDS: guaiFENesin ER TAB 600 MG PO SCH ×2 (08:19→20:17)
[2018-02-07] MEDS: amLODIPine TAB* 5 MG PO SCH (08:19)
[2018-02-07] MEDS: Multivitamins/Minerals TAB PO SCH (08:20)
[2018-02-07] MEDS: predniSONE TAB* 20 MG PO SCH (08:20)
[2018-02-07] MEDS: CMCS Epleronone (NF) 25 MG TAB PO SCH (08:21)
[2018-02-07] MEDS: Azithromycin IV(*) 500 MG in NS 0.9% 250 ML* 250 ML IVPB SCH (08:29)
[2018-02-07] MEDS ORDERED: Magnesium Sulfate 2 GM IV* 2 GM/50 ML BAG IVPB ONE (08:57)
--- NOTE | 2018-02-07 10:08 | PN ---
Subjective Date of Service: 02/07/18 Interval History: Pt resting comfortably on 4L NC. Pt denies shortness of breath at rest, but endorses shortness of breath when OOB. Reports sore throat and cough are better than yesterday, but still producing lots of thick sputum. He says he is able to eat and drink more today than yesterday. Does endorse constipation with last BM 3 days ago. Bowel regimen ordered. Denies chest pain, dizziness, N/V/D, abdominal pain, dysuria, numbness or tingling in extremities. Objective Active Medications: Acetaminophen (Tylenol Tab*) 975 mg PO Q4H PRN PRN Reason: FEVER/PAIN Last Admin: 02/06/18 23:40 Dose: 975 mg Al Hydrox/Mg Hydrox/Simethicone (Maalox Plus*) 30 ml PO Q6H PRN PRN Reason: INDIGESTION Albuterol/Ipratropium (Duoneb (Albuterol 2.5 Mg/Ipratropium 0.5 Mg)) 1 neb INH [id number] AWAKE PRN PRN Reason: sob/wheexing Amlodipine Besylate (Norvasc Tab*) 10 mg PO QAM [facility]; Protocol Last Admin: 02/07/18 08:19 Dose: 10 mg Aspirin (Aspirin 81 Mg Chew Tab*) 81 mg PO QAM [facility] Last Admin: 02/07/18 08:16 Dose: 81 mg Atorvastatin Calcium (Lipitor*) 20 mg PO DAILY [facility] Last Admin: 02/07/18 08:18 Dose: 20 mg Cholecalciferol (Vitamin D Tab*) 1,000 units PO DAILY [facility] Last Admin: 02/07/18 08:16 Dose: 1,000 units Cyanocobalamin (Vitamin B12 Tab*) 2,000 mcg PO DAILY [facility] Last Admin: 02/07/18 08:17 Dose: 2,000 mcg Dextrose (D50w Syringe 50 Ml*) 12.5 gm IV PUSH .FOR FS < 60 - SS PRN PRN Reason: FS < 60 Doxazosin Mesylate (Cardura Tab*) 2 mg PO BEDTIME [facility] Last Admin: 02/06/18 22:13 Dose: 2 mg Eplerenone (Inspra (Nf)) 50 mg PO QAM [facility]; Protocol Last Admin: 10/16/18 08:21 Dose: 50 mg Guaifenesin (Mucinex*) 600 mg PO BID [facility] Last Admin: 02/07/18 08:19 Dose: 600 mg Heparin Sodium (Porcine) (Heparin Vial(*)) 5,000 units SUBCUT Q8HR [facility] Last Admin: 02/07/18 05:09 Dose: 5,000 units Hydrochlorothiazide (Hydrodiuril Tab*) 25 mg PO QAM [facility] Last Admin: 02/07/18 08:17 Dose: 25 mg Ceftriaxone Sodium 1 gm/ (Sodium Chloride) 50 mls @ 200 mls/hr IVPB Q24H [facility] Last Admin: 02/07/18 05:16 Dose: 200 mls/hr Azithromycin 500 mg/ Sodium (Chloride) 250 mls @ 250 mls/hr IVPB Q24H [facility] Last Admin: 02/07/18 08:29 Dose: 250 mls/hr Insulin Glargine (Lantus(*)) 66 units SUBCUT Q24H [facility] Last Admin: 02/06/18 22:10 Dose: 66 units Insulin Human Lispro (Humalog*) 0 units SUBCUT ACHS [facility]; Protocol Last Admin: 02/07/18 08:15 Dose: 12 units Losartan Potassium (Cozaar Tab*) 100 mg PO DAILY [facility] Last Admin: 02/07/18 08:18 Dose: 100 mg Magnesium Hydroxide (Milk Of Magnesia Liq*) 30 ml PO Q4H PRN PRN Reason: CONSTIPATION Multivitamins/Minerals (Theragran/Minerals Tab*) 1 tab PO DAILY [facility] Last Admin: 02/07/18 08:20 Dose: 1 tab Ondansetron HCl (Zofran Inj*) 4 mg IV Q4H PRN PRN Reason: NAUSEA/VOMITING Prednisone (Deltasone Tab*) 40 mg PO DAILY [facility] Last Admin: 02/07/18 08:20 Dose: 40 mg Throat Lozenges (Chloraseptic Fariha*) 1 fariha PO Q6H PRN PRN Reason: SORE THROAT Last Admin: 02/07/18 05:07 Dose: 1 fariha Vital Signs - 8 hr 02/07/18 02/07/18 02/07/18 03:54 03:57 07:36 Temperature 98.1 F 97.8 F Pulse Rate 32 77 Respiratory 20 18 Rate Blood Pressure 137/45 133/50 (mmHg) O2 Sat by Pulse 98 94 95 Oximetry 02/07/18 08:00 Temperature Pulse Rate Respiratory 18 Rate Blood Pressure (mmHg) O2 Sat by Pulse Oximetry Oxygen Devices in Use Now: Nasal Cannula - 4L Eyes: No Scleral Icterus, PERRLA Ears/Nose/Mouth/Throat: NL Teeth, Lips, Gums, Clear Oropharnyx, Mucous Membranes Moist Neck: NL Appearance and Movements; NL JVP, Trachea Midline Respiratory: Symmetrical Chest Expansion and Respiratory Effort - Ronchi and mild expiratory wheeze in bilateral bases Cardiovascular: No Edema, - - Irregular heart rate correstponding with Trigeminy on monitor. Sysytolic murmur 3/6. Abdominal: NL Sounds; No Tenderness; No Distention Extremities: No Edema, No Clubbing, Cyanosis Skin: No Rash or Ulcers Neurological: Alert and Oriented x 3, NL Muscle Strength and Tone Lines/Tubes/Other Access: Clean, Dry and Intact Peripheral IV Nutrition: Taking PO's Result Diagrams: 02/07/18 06:11 02/07/18 06:11 Additional Lab and Data: Lab Results 02/06/18 02/06/18 02/06/18 Range/Units 16:40 16:40 16:40 WBC 11.7 H (3.5-10.8) 10^3/ul RBC 4.11 (4.00-5.40) 10^6/ul Hgb 13.2 L (14.0-18.0) g/dl Hct 39 L (42-52) % MCV 94 (80-94) fL MCH 32 H (27-31) pg MCHC 34 (31-36) g/dl RDW 14 (10.5-15) % Plt Count 170 (150-450) 10^3/ul MPV 9.8 (7.4-10.4) um3 Neut % (Auto) 86.6 H (38-83) % Lymph % (Auto) 4.2 L (25-47) % [place] % (Auto) 9.0 H (0-7) % Eos % (Auto) 0 (0-6) % Baso % (Auto) 0.2 (0-2) % Absolute Neuts (auto) 10.1 H (1.5-7.7) 10^3/ul Absolute Lymphs (auto) 0.5 L (1.0-4.8) 10^3/ul Absolute Monos (auto) 1.0 H (0-0.8) 10^3/ul Absolute Eos (auto) 0 (0-0.6) 10^3/ul Absolute Basos (auto) 0 (0-0.2) 10^3/ul Absolute Nucleated RBC 0 10^3/ul Nucleated RBC % 0 Lactic Acid 0.9 (0.5-2.0) mmol/L Troponin I 0.06 H* (<0.04) ng/mL C-Reactive Protein 139.24 H (<8.01) mg/L B-Natriuretic Peptide ( - 100) pg/mL 02/06/18 Range/Units 16:40 WBC (3.5-10.8) 10^3/ul RBC (4.00-5.40) 10^6/ul Hgb (14.0-18.0) g/dl Hct (42-52) % MCV (80-94) fL MCH (27-31) pg MCHC (31-36) g/dl RDW (10.5-15) % Plt Count (150-450) 10^3/ul MPV (7.4-10.4) um3 Neut % (Auto) (38-83) % Lymph % (Auto) (25-47) % [place] % (Auto) (0-7) % Eos % (Auto) (0-6) % Baso % (Auto) (0-2) % Absolute Neuts (auto) (1.5-7.7) 10^3/ul Absolute Lymphs (auto) (1.0-4.8) 10^3/ul Absolute Monos (auto) (0-0.8) 10^3/ul Absolute Eos (auto) (0-0.6) 10^3/ul Absolute Basos (auto) (0-0.2) 10^3/ul Absolute Nucleated RBC 10^3/ul Nucleated RBC % Lactic Acid (0.5-2.0) mmol/L Troponin I (<0.04) ng/mL C-Reactive Protein (<8.01) mg/L B-Natriuretic Peptide 233 H ( - 100) pg/mL Microbiology and Other Data: Microbiology 02/06/18 18:12 Gram Stain - Final Sputum Expectorated 02/07/18 04:50 Legionella Urinary Antigen - Final Urine Negative Legionella Antigen Streptococcus pneumoniae Ag Screen - Final Negative S. pneumo Antigen Assess/Plan/Problems-Billing Assessment: Mr. Dillard is a 78 year old male with a PMG HTN, CAD, DM, OSM, gout who presented with 1 week of gradually worsening URI symptoms that progressed to productive cough with thick yellow sputum, shortness of breath, and low grade fever. CT consistent with PNA. Cultured and started on ceftriaxone and azitho and admitted to hospitalist service for CAP. - Patient Problems (1) Community acquired bacterial pneumonia Current Visit: Yes Status: Acute Code(s): J15.9 - UNSPECIFIED BACTERIAL PNEUMONIA SNOMED Code(s): 315038994 Comment: - Improving. Pt reports cough, shortness of breath and sore throat are all improved since yesterday. Still with thick sputum. - Leukocytosis improving, down to 8.3 from 11.7 yesterday - Afebrile today. Tmax 101.3 last night. - CT: Right lung and left lower lobe perihilar mainly centrilobular nodules - Sputum smear with 4+ gram pos cocci/1+ gram neg bacilli/2+ gram pos diplococci / 1+ gram neg coccobacilli - Procalcitonin 0.8 - Urine strep and legionella negative - Continue with ceftriaxone and azithromycin pending culture results - Continue mucinex, duonebs PRn and prednisone 40mg (2) Sepsis Current Visit: Yes Status: Acute Comment: - Resolving. Initially with Tachypnea + T max 101.3 in the setting of PNA. Now afebrile with RR WNL. (3) Non-sustained ventricular tachycardia Current Visit: Yes Status: Acute Code(s): I47.2 - VENTRICULAR TACHYCARDIA SNOMED Code(s): 022659558 Comment: - Overnight 1 episode 9 beats, this AM 1 episode 7 beats. EKG this AM with trigeminy. - Mg 1.5 this AM. Supplimented with 2g Mag. Pt is allergic to metoprolol and labtalol. - Appreciate cardiology reqs. Pt sees Dr. Russell as an outpatient. (4) Diabetes Current Visit: Yes Status: Acute Code(s): E11.9 - TYPE 2 DIABETES MELLITUS WITHOUT COMPLICATIONS SNOMED Code(s): 26223071 Comment: - Hyperglycemic today: 303, 327, 311. Also in the setting of prednisone. Increased lantus from 66 units to 70 and added home standing aspart TID AC. - Continue fingersticks and sliding scale lispro - HgA1c pending (5) CAD (coronary artery disease) Current Visit: Yes Status: Acute Code(s): I25.10 - ATHSCL HEART DISEASE OF [place] CORONARY ARTERY W/O ANG PCTRS SNOMED Code(s): 95030527 Comment: - Trop 0.06. No ST elevation on EKG. likely demand ischemia in the setting of PNA. - Continue aspirin 81 mg and statin (6) Hypertension Current Visit: Yes Status: Acute Code(s): I10 - ESSENTIAL (PRIMARY) HYPERTENSION SNOMED Code(s): 08041125 Comment: - BP well controlled on current regimen norvasc, cardura, losartan, hydrochlorothiazide. 133/50 this AM. (7) Hyponatremia Current Visit: Yes Status: Acute Code(s): E87.1 - HYPO-OSMOLALITY AND HYPONATREMIA SNOMED Code(s): 70227737 Comment: - 129 --> 125 this am. Likely hypovolemic hyponatremia in the setting of decreased PO intake. Also with mild FLIP to 1.24. Got 1L fluids yesterday. Started gently hydration with 75 mL/hr - Recheck BMP this afternoon and re-evaluate (8) Elevated bilirubin Current Visit: Yes Status: Acute Code(s): R17 - UNSPECIFIED JAUNDICE SNOMED Code(s): 661572945 Comment: - Bili 2.2. Likely secondary to sepsis. No abdominal pain or evidence of GI pathology. will continue to monitor. (9) DVT prophylaxis Current Visit: Yes Status: Acute Code(s): QIP1283 - SNOMED Code(s): 749452233 Comment: - SQ heparin (10) Full code status Current Visit: Yes Status: Acute Code(s): Z78.9 - OTHER SPECIFIED HEALTH STATUS SNOMED Code(s): 475698982 Status and Disposition: Inpatient Attending: Moraima Montague
[2018-02-07] MEDS ORDERED: NS 0.9% 1000 ML* 1,000 ML IV SCH (10:15)
[2018-02-07] MEDS: Senna TAB PO PRN (11:50)
[2018-02-07] MEDS: Docusate CAP* 100 MG PO PRN (11:50)
[2018-02-07 16:44] LABS: EGFR Non-African American 51.4 (>60)
--- NOTE | 2018-02-07 16:56 | ECHO ---
Patient: MARIE SWEENEY [facility] Rec#: [id number] : 1940 Date: 02/07/2018 Age: 78y Height: 180 cm / 70.9 in Weight: 105 kg / 231.4 lbs Sex: M BSA: 2.24 Room#: [facility] Admit Date#: 02/06/2018 Type: Inpatient Referring: CHRIS JACOB Reading: Jerman Russell MD Floor Layer Apprentice: Celi Elliott RDCS,RDMS CC: Noa Fernandez MD Transthoracic Echocardiogram Indication: ABN EKG BP: 133/50 HR: 72 Rhythm: NSR with PVCs Findings History: CAD, AOV stenosis, HTN, DM, LISSETH Technical Comments: The study quality is fair. Left Ventricle: The left ventricular chamber size is normal. Moderate to severe concentric left ventricular hypertrophy is observed. Global left ventricular wall motion and contractility are within normal limits. There is normal left ventricular systolic function. The estimated ejection fraction is 55-60%. Abnormal left ventricular diastolic function is observed. Left Atrium: The left atrium is moderately dilated. Right Ventricle: The right ventricular chamber size and systolic function are within normal limits. Right Atrium: The right atrium is mildly dilated. Aortic Valve: The aortic valve leaflets are severely thickened with reduced systolic excursion. There is no evidence of aortic regurgitation. There is moderate to severe aortic stenosis. The mean gradient of the aortic valve is 38 mmHg. The aortic valve area, by peak velocities, is calculated at 1.1 cm2. Highest aortic valve velocity was acquired with Pedoff in apical position. Mitral Valve: Moderate mitral annular calcification present. The mitral valve leaflets are mildly thickened. There is trace to mild mitral regurgitation. There is mild to moderate mitral stenosis. Tricuspid Valve: The tricuspid valve leaflets are normal. There is trace tricuspid regurgitation. Unable to estimate the right ventricular systolic pressure. Pulmonic Valve: The pulmonic valve structure is not well visualized. There is a trace pulmonic regurgitation. Pericardium: There is no significant pericardial effusion. Aorta: The aortic root appears normal. There is no dilatation of the aortic arch. Pulmonary Artery: The main pulmonary artery is not well visualized. Venous: The inferior vena cava is dilated. There is an approximate 50% respiratory change in the inferior vena cava dimension. Conclusions Moderate to severe concentric left ventricular hypertrophy is observed. The aortic valve leaflets are severely thickened with reduced systolic excursion. There is moderate to severe aortic stenosis. The mean gradient of the aortic valve is 38 mmHg. There is trace to mild mitral regurgitation. There is trace tricuspid regurgitation. Unable to estimate the right ventricular systolic pressure. There is no significant pericardial effusion. Compared to study of 10/21/15, the LV function is the same THe degeree of is worse Measurements Name Value Normal Range RVIDd (AP) 2D 3.4 cm (0.9 - 2.6) RVDdMajor (2D) 3 cm (2.2 - 4.4) RAd ISD 4CH 5.5 cm (3.4 - 4.9) RA (A4C)W 4.2 cm (2.9 - 4.6) IVSd (2D) 2.1 cm (0.6 - 1) LVPWd (2D) 2.2 cm (0.6 - 1) LVIDd (2D) 3.7 cm (3.6 - 5.4) LVIDs (2D) 2.6 cm - LV FS (2D) 28 % (25 - 45) Aortic Annulus 2.1 cm (1.4 - 2.6) Ao root diameter (2D) 3.5 cm (2.1 - 3.5) Ascending Ao 3.4 cm (2.1 - 3.4) Aortic arch 2.2 cm (1.8 - 3.4) LA dimension (AP) 2D 4.2 cm (2.3 - 3.8) LAd ISD 4CH 6.2 cm (2.9 - 5.3) LA ISD 4CH W 4.6 cm (2.5 - 4.5) Name Value Normal Range LA ESV BP (A/L) index 48 ml/m2 - Name Value Normal Range MV E-wave Vmax 1.6 m/sec - MV deceleration time 156 msec - MV A-wave Vmax 1.7 m/sec - MV E:A ratio 0.9 ratio - LV septal e' Vmax 0.07 m/sec - LV lateral e' Vmax 0.06 m/sec - LV E:e' septal ratio 23 ratio - LV E:e' lateral ratio 27 ratio - Name Value Normal Range AV Vmax 3.8 m/sec - AV VTI 97 cm - AV peak gradient 58 mmHg - AV mean gradient 38 mmHg - LVOT diameter 2.1 cm - LVOT Vmax 1.2 m/sec - LVOT VTI 26 cm - LVOT peak gradient 6 mmHg - LVOT mean gradient 3 mmHg - DOI (VTI) 0.3 ratio - TESHA (continuity Vmax) 1.1 cm2 - TESHA (continuity VTI) 0.9 cm2 - MARIA G Vmax 0.7 m/sec - Name Value Normal Range MV Vmax 1.9 m/sec - MV VTI 60 cm - MV peak gradient 14 mmHg - MV mean gradient 8 mmHg - MV PHT 74 msec - MVA (PHT) 3 cm2 - MVA (continuity VTI) 1.5 cm2 - Name Value Normal Range RAP 8 mmHg - IVC diameter 2.3 cm - Name Value Normal Range PV Vmax 0.8 m/sec - PV peak gradient 2.6 mmHg -
[2018-02-07] MEDS: Acetaminophen TAB* 325 MG PO PRN (20:17)
[2018-02-07] MEDS: Metoprolol Tartrate TAB* 25 MG PO SCH (20:17)
[2018-02-07] MEDS: Insulin GLARGINE(*) 1 UNITS UNIT SUBCUT SCH (20:18)
[2018-02-07] MEDS: Doxazosin TAB* 2 MG PO SCH (20:18)
--- NOTE | 2018-02-07 23:54 | CONS ---
CC: Dr. Fernandez, [facility] * CARDIOLOGY CONSULTATION: DATE OF CONSULT: 02/07/18 INDICATION FOR CONSULT: Nonsustained ventricular tachycardia. HISTORY OF PRESENT ILLNESS: The patient is a 78-year-old with a known history of moderate coronary artery disease and bukfulon-fi-ijzoxv aortic stenosis. The patient's last echocardiogram was in 2015. This demonstrated normal LV size and systolic function. It demonstrated beitkslw-po-ydaght aortic stenosis with a mean gradient of 35 mmHg. The patient started feeling poorly 2 days ago with a cough and a fever. He was admitted to the hospital this morning with community-acquired pneumonia. The patient had no symptoms prior to onset of his pneumonia symptoms 2 days ago. The patient denied any shortness of breath. He denied any angina. He denied any lightheadedness, dizziness, or syncope. In the hospital, he is on telemetry and it shows brief runs of nonsustained ventricular tachycardia with heart rates of around 150 beats per minute. The patient is asymptomatic with these. PAST MEDICAL HISTORY: Significant for coronary artery disease and aortic stenosis as described above, sleep apnea, arthritis, diabetes. PAST SURGICAL HISTORY: Shoulder surgeries, basal cell cancer surgeries. OUTPATIENT MEDICATIONS: 1. Aspirin 81 mg a day. 2. Lipitor 20 mg a day. 3. Cardura 2 mg a day. 4. Eplerenone 50 mg a day. 5. Felodipine 10 mg a day. 6. Hydrochlorothiazide 25 mg a day. 7. Insulin as directed. 8. Multivitamin a day. ALLERGIES: To CODEINE, METFORMIN, LABETALOL, and METOPROLOL. These are just because of low heart rate. FAMILY HISTORY: Noncontributory. SOCIAL HISTORY: He is a nonsmoker. He is retired. He lives with his . He occasionally exercises. REVIEW OF SYSTEMS: Negative for fevers or chills. Negative for changes in bowel or bladder habits. Positive for cough. Negative for change in weight. PHYSICAL EXAM: Height is 5 feet 11 inches, weight 232 pounds, temperature 97.8 , heart rate 77, respiratory rate 18, blood pressure 133/50, oxygen saturation 92% on room air. Sclerae anicteric. Oropharynx is pink without erythema. Carotids are 2+ with soft bilateral bruits. JVD is normal. Thyroid is normal. Cardiac Exam: S1, S2 with a 2/6 systolic ejection murmur heard best at the right upper sternal border. PMI is normal. Lungs are clear to auscultation. There may be some mild rhonchi in the right base. There is no dullness to percussion. Abdomen is soft, nontender, nondistended with normoactive bowel sounds. Extremities show no edema. He has 2+ pulses throughout. The patient is awake, alert, and oriented. He moves all 4 extremities equally. LABORATORY DATA: White count 8.3, hemoglobin 12, hematocrit 36, platelet count 142. Sodium 124, BUN 37, creatinine 1.3. Troponin level 0.27. IMPRESSION AND PLAN: This is a 78-year-old gentleman with a history of known moderate coronary artery disease and hnjgkios-ht-ouropn aortic stenosis, who was admitted to the hospital with community-acquired pneumonia. The patient was having runs of nonsustained ventricular tachycardia. The patient was asymptomatic with these. For now, I am not exactly sure why he is having the nonsustained ventricular tachycardia. His echocardiogram shows slight worsening of his aortic stenosis. He has normal LV function. For now, my recommendation is to repeat his troponin level in the morning. The patient will be started on low dose beta-blockers. If the patient is recovered from his community-acquired pneumonia and has no further ventricular tachycardia , then I would discharge him from the hospital. He is scheduled to see me in followup already in early February. At that time, I would consider either a stress test or a repeat cardiac catheterization. [id number]/CPS #: [id number] FAVIOLA
[2018-02-08] MEDS ORDERED: Furosemide IV* 10 MG/ML VIAL (40 MG) IV ONE (02:22)
--- NOTE | 2018-02-08 02:24 | PN ---
Progress Note - Progress Note Date of Service: 02/08/18 Note: Paged for hypoxia and increase work of breathing. States he feels better but still SOB. Rales b/l with some dyspnea. CXR - prominent interstitial markings. Lasix 40 mg IV x 1 as well as a duoneb. Patient with thick productive sputum. If no improvement may need to be transferred to ICU.
[2018-02-08] MEDS ORDERED: Furosemide IV* 10 MG/ML VIAL (40 MG) ONE (02:30)
[2018-02-08] MEDS: Heparin VIAL(*) 5000 UNITS/ML VIAL (FIVE THOUSAND) SUBCUT SCH ×3 (05:23→20:58)
[2018-02-08] MEDS: cefTRIAXone(*) 1 GM in NS 0.9% 50 ML* 50 ML IVPB SCH (05:23)
[2018-02-08 07:11] LABS: EGFR Non-African American 57.3 (>60)
--- NOTE | 2018-02-08 08:14 | RAD ---
INDICATION: Respiratory distress. COMPARISON: Comparison is made with a prior study from February 06, 2018. TECHNIQUE: A portable view of the chest was obtained. FINDINGS: Cardiac and mediastinal contours appear to be within normal limits. There is a patchy infiltrate in the right mid and lower lung field. No pleural effusion is seen. IMPRESSION: RIGHT LUNG PATCHY INFILTRATE. R1
[2018-02-08 08:27] LABS: Hematocrit 34 % (42-52); Hemoglobin 11.9 g/dl (14.0-18.0); Mean Corpuscular HGB Conc 35 g/dl (31-36); Mean Corpuscular Hemoglobin 32 pg (27-31); Mean Corpuscular Volume 94 fL (80-94); Mean Platelet Volume 9.4 um3 (7.4-10.4); Platelet Count 175 10^3/ul (150-450); Red Blood Count 3.68 10^6/ul (4.00-5.40); Red Cell Distribution Width 14 % (10.5-15); White Blood Count 8.6 10^3/ul (3.5-10.8)
--- NOTE | 2018-02-08 08:41 | PN ---
Subjective Date of Service: 02/08/18 Interval History: Overnight patient have episode of increased shortness of breath and was placed on high flow O2 with FiO2 32%. CXR with prominent interstitial markings. Received Duonebs and 40mg IV lasix with good response (pt says he emptied urinal , so total not recorded in EMR). This morning, pt resting comfortably on 32% and satting > 90%. Denies shortness of breath, but endorses fatigue. Says cough has improved. Denies chest pain, palpitations, dizziness, headache, N/V/D, dysuria, numbness or tingling in extremities. Objective Active Medications: Acetaminophen (Tylenol Tab*) 975 mg PO Q4H PRN PRN Reason: FEVER/PAIN Last Admin: 02/07/18 20:17 Dose: 975 mg Al Hydrox/Mg Hydrox/Simethicone (Maalox Plus*) 30 ml PO Q6H PRN PRN Reason: INDIGESTION Albuterol/Ipratropium (Duoneb (Albuterol 2.5 Mg/Ipratropium 0.5 Mg)) 1 neb INH [id number] AWAKE PRN PRN Reason: sob/wheexing Last Admin: 02/08/18 02:21 Dose: 1 neb Albuterol/Ipratropium (Duoneb (Albuterol 2.5 Mg/Ipratropium 0.5 Mg)) 1 neb INH [id number] AWAKE [facility] Amlodipine Besylate (Norvasc Tab*) 10 mg PO QAM [facility]; Protocol Last Admin: 02/07/18 08:19 Dose: 10 mg Aspirin (Aspirin 81 Mg Chew Tab*) 81 mg PO QAM [facility] Last Admin: 02/07/18 08:16 Dose: 81 mg Atorvastatin Calcium (Lipitor*) 20 mg PO DAILY [facility] Last Admin: 02/07/18 08:18 Dose: 20 mg Cholecalciferol (Vitamin D Tab*) 1,000 units PO DAILY [facility] Last Admin: 02/07/18 08:16 Dose: 1,000 units Cyanocobalamin (Vitamin B12 Tab*) 2,000 mcg PO DAILY [facility] Last Admin: 02/07/18 08:17 Dose: 2,000 mcg Dextrose (D50w Syringe 50 Ml*) 12.5 gm IV PUSH .FOR FS < 60 - SS PRN PRN Reason: FS < 60 Docusate Sodium (Colace Cap*) 100 mg PO DAILY PRN PRN Reason: CONSTIPATION Last Admin: 02/07/18 11:50 Dose: 100 mg Doxazosin Mesylate (Cardura Tab*) 2 mg PO BEDTIME [facility] Last Admin: 02/07/18 20:18 Dose: 2 mg Eplerenone (Inspra (Nf)) 50 mg PO QAM [facility]; Protocol Last Admin: 02/07/18 08:21 Dose: 50 mg Guaifenesin (Mucinex*) 600 mg PO BID [facility] Last Admin: 02/07/18 20:17 Dose: 600 mg Heparin Sodium (Porcine) (Heparin Vial(*)) 5,000 units SUBCUT Q8HR [facility] Last Admin: 02/08/18 05:23 Dose: 5,000 units Hydrochlorothiazide (Hydrodiuril Tab*) 25 mg PO QAM [facility] Last Admin: 02/07/18 08:17 Dose: 25 mg Ceftriaxone Sodium 1 gm/ (Sodium Chloride) 50 mls @ 200 mls/hr IVPB Q24H [facility] Last Admin: 02/08/18 05:23 Dose: 200 mls/hr Azithromycin 500 mg/ Sodium (Chloride) 250 mls @ 250 mls/hr IVPB Q24H [facility] Last Admin: 02/07/18 08:29 Dose: 250 mls/hr Insulin Glargine (Lantus(*)) 70 units SUBCUT Q24H [facility] Last Admin: 02/07/18 20:18 Dose: 70 units Insulin Human Lispro (Humalog*) 0 units SUBCUT ACHS [facility]; Protocol Last Admin: 02/07/18 20:18 Dose: 6 units Insulin Human Lispro (Humalog*) 14 units SUBCUT TID AC [facility] Last Admin: 02/07/18 17:21 Dose: 14 units Losartan Potassium (Cozaar Tab*) 100 mg PO DAILY [facility] Last Admin: 02/07/18 08:18 Dose: 100 mg Magnesium Hydroxide (Milk Of Magnesia Liq*) 30 ml PO Q4H PRN PRN Reason: CONSTIPATION Last Admin: 02/07/18 20:18 Dose: 30 ml Metoprolol Tartrate (Lopressor Tab*) 25 mg PO BID [facility] Last Admin: 02/07/18 20:17 Dose: 25 mg Multivitamins/Minerals (Theragran/Minerals Tab*) 1 tab PO DAILY [facility] Last Admin: 02/07/18 08:20 Dose: 1 tab Ondansetron HCl (Zofran Inj*) 4 mg IV Q4H PRN PRN Reason: NAUSEA/VOMITING Prednisone (Deltasone Tab*) 40 mg PO DAILY [facility] Last Admin: 02/07/18 08:20 Dose: 40 mg Senna (Senokot Tab*) 1 tab PO DAILY PRN PRN Reason: CONSTIPATION Last Admin: 02/07/18 11:50 Dose: 1 tab Throat Lozenges (Chloraseptic Fariha*) 1 fariha PO Q6H PRN PRN Reason: SORE THROAT Last Admin: 02/07/18 20:17 Dose: 1 fariha Vital Signs - 8 hr 02/08/18 02/08/18 02/08/18 00:48 02:21 03:45 Temperature 98.4 F Pulse Rate 87 77 Respiratory 20 16 Rate Blood Pressure 150/62 (mmHg) O2 Sat by Pulse 96 93 96 Oximetry Oxygen Devices in Use Now: High Flow Nasal Cannula, Other Eyes: No Scleral Icterus, PERRLA Ears/Nose/Mouth/Throat: NL Teeth, Lips, Gums, Clear Oropharnyx, Mucous Membranes Moist Neck: NL Appearance and Movements; NL JVP Respiratory: Symmetrical Chest Expansion and Respiratory Effort - Rales in left lung base. Mild expiratory wheeze heard throughout. Cardiovascular: No Edema, - - Irregular rate corresponding with frequent PVCs on monitor. 2/6 systolic murmur heard best over L sternal border. Abdominal: NL Sounds; No Tenderness; No Distention Extremities: No Edema, No Clubbing, Cyanosis Skin: No Rash or Ulcers, No Nodules or Sclerosis Neurological: Alert and Oriented x 3, NL Muscle Strength and Tone Lines/Tubes/Other Access: Clean, Dry and Intact Peripheral IV Nutrition: Taking PO's Result Diagrams: 02/08/18 06:31 02/08/18 06:35 Additional Lab and Data: Lab Results 02/06/18 02/06/18 02/06/18 Range/Units 16:40 16:40 16:40 WBC 11.7 H (3.5-10.8) 10^3/ul RBC 4.11 (4.00-5.40) 10^6/ul Hgb 13.2 L (14.0-18.0) g/dl Hct 39 L (42-52) % MCV 94 (80-94) fL MCH 32 H (27-31) pg MCHC 34 (31-36) g/dl RDW 14 (10.5-15) % Plt Count 170 (150-450) 10^3/ul MPV 9.8 (7.4-10.4) um3 Neut % (Auto) 86.6 H (38-83) % Lymph % (Auto) 4.2 L (25-47) % [place] % (Auto) 9.0 H (0-7) % Eos % (Auto) 0 (0-6) % Baso % (Auto) 0.2 (0-2) % Absolute Neuts (auto) 10.1 H (1.5-7.7) 10^3/ul Absolute Lymphs (auto) 0.5 L (1.0-4.8) 10^3/ul Absolute Monos (auto) 1.0 H (0-0.8) 10^3/ul Absolute Eos (auto) 0 (0-0.6) 10^3/ul Absolute Basos (auto) 0 (0-0.2) 10^3/ul Absolute Nucleated RBC 0 10^3/ul Nucleated RBC % 0 Lactic Acid 0.9 (0.5-2.0) mmol/L Troponin I 0.06 H* (<0.04) ng/mL C-Reactive Protein 139.24 H (<8.01) mg/L B-Natriuretic Peptide ( - 100) pg/mL 02/06/ Range/Units 16:40 WBC (3.5-10.8) 10^3/ul RBC (4.00-5.40) 10^6/ul Hgb (14.0-18.0) g/dl Hct (42-52) % MCV (80-94) fL MCH (27-31) pg MCHC (31-36) g/dl RDW (10.5-15) % Plt Count (150-450) 10^3/ul MPV (7.4-10.4) um3 Neut % (Auto) (38-83) % Lymph % (Auto) (25-47) % [place] % (Auto) (0-7) % Eos % (Auto) (0-6) % Baso % (Auto) (0-2) % Absolute Neuts (auto) (1.5-7.7) 10^3/ul Absolute Lymphs (auto) (1.0-4.8) 10^3/ul Absolute Monos (auto) (0-0.8) 10^3/ul Absolute Eos (auto) (0-0.6) 10^3/ul Absolute Basos (auto) (0-0.2) 10^3/ul Absolute Nucleated RBC 10^3/ul Nucleated RBC % Lactic Acid (0.5-2.0) mmol/L Troponin I (<0.04) ng/mL C-Reactive Protein (<8.01) mg/L B-Natriuretic Peptide 233 H ( - 100) pg/mL Microbiology and Other Data: Microbiology 02/06/18 18:12 Gram Stain - Final Sputum Expectorated 02/07/18 04:50 Legionella Urinary Antigen - Final Urine Negative Legionella Antigen Streptococcus pneumoniae Ag Screen - Final Negative S. pneumo Antigen Assess/Plan/Problems-Billing Assessment: Mr. Dillard is a 78 year old male with a PMG HTN, CAD, DM, OSM, gout who presented with 1 week of gradually worsening URI symptoms that progressed to productive cough with thick yellow sputum, shortness of breath, and low grade fever. CT consistent with PNA. Cultured and started on ceftriaxone and azitho and admitted to hospitalist service for CAP. - Patient Problems (1) Community acquired bacterial pneumonia Current Visit: Yes Status: Acute Code(s): J15.9 - UNSPECIFIED BACTERIAL PNEUMONIA SNOMED Code(s): 444503387 Comment: - Cough and sore throat have improved, however had episode of shortness of breath last night and was placed on high flow NC FiO2 32%. Received treatment with duoneb and 40mg IV lasix, with good response. CXR with new right lung patchy infiltrate, consistent with his developing pneumonia. Resting comfortably today. Will continue supportive care with supplimental oxygen, mucinex and prednisone 40mg daily. Pt with mild wheeze on exam, so have scheduled duonebs instead of PRN. IVF discontinued, but will continue to closely monitor volume status. No JVD or lower extremity edema on exam, but did have some rales in left lung base. - Leukocytosis improved. WBC WNL. - Continues to be afebrile - CT: Right lung and left lower lobe perihilar mainly centrilobular nodules - Sputum smear with 4+ gram pos cocci/1+ gram neg bacilli/2+ gram pos diplococci / 1+ gram neg coccobacilli - Procalcitonin 0.8 - Urine strep and legionella negative - Continue with ceftriaxone and azithromycin pending culture results (2) Sepsis Current Visit: Yes Status: Acute Comment: - Resolving. Initially with Tachypnea + T max 101.3 in the setting of PNA. Now afebrile with RR WNL. (3) Non-sustained ventricular tachycardia Current Visit: Yes Status: Acute Code(s): I47.2 - VENTRICULAR TACHYCARDIA SNOMED Code(s): 472517286 Comment: - No new episodes overnight, but still with frequent PVCs - Seen by Dr Russell yesterday who added metoprolol (per his note, listed allergy was due to low HR) and reccomended further outpatient workup if no additioanl episodes - Will continue to suppliment to keep Mg > 2 and K > 4 (4) Diabetes Current Visit: Yes Status: Acute Code(s): E11.9 - TYPE 2 DIABETES MELLITUS WITHOUT COMPLICATIONS SNOMED Code(s): 09538787 Comment: - Blood glucose better controlled today (170s compared to 300s yesterday, also in the setting of prednisone) after increasing lantus from 66 units to 70 and addinghome standing aspart TID AC yesterday. Continue those today as well as sliding scale lispro AC HS. - HgA1c 7.5 (5) CAD (coronary artery disease) Current Visit: Yes Status: Acute Code(s): I25.10 - ATHSCL HEART DISEASE OF [place] CORONARY ARTERY W/O ANG PCTRS SNOMED Code(s): 43346894 Comment: - Trop 0.06 --> 0.27 --> 0.24. No ST elevation on EKG. Likely demand ischemia in the setting of PNA. - Continue aspirin 81 mg and statin and f/u with Dr Russell as outpatint (6) Hypertension Current Visit: Yes Status: Acute Code(s): I10 - ESSENTIAL (PRIMARY) HYPERTENSION SNOMED Code(s): 92113357 Comment: - BP well controlled on current regimen norvasc, cardura, losartan, hydrochlorothiazide, eplerinone, no metoprolol as well. SBP 120s-150s (7) Chronic diastolic (congestive) heart failure Current Visit: Yes Status: Acute Code(s): I50.32 - CHRONIC DIASTOLIC ( CONGESTIVE) HEART FAILURE SNOMED Code(s): 119051022 Comment: - Rales in left lung base. No edema noted. Given 40mg IV lasix overnight as above. - Echo 02/08 with moderate to severe LVH and abnormal LV diastolic function. EF 55-60% (8) Hyponatremia Current Visit: Yes Status: Acute Code(s): E87.1 - HYPO-OSMOLALITY AND HYPONATREMIA SNOMED Code(s): 23105052 Comment: - Trending back up 129 --> 125 -->127 this am s/p lasix administration - Will continue to monitor (9) Elevated bilirubin Current Visit: Yes Status: Acute Code(s): R17 - UNSPECIFIED JAUNDICE SNOMED Code(s): 787723883 Comment: - Bili 2.2. Likely secondary to sepsis. No abdominal pain or evidence of GI pathology. will continue to monitor. (10) DVT prophylaxis Current Visit: Yes Status: Acute Code(s): KIU1965 - SNOMED Code(s): 914951482 Comment: - SQ heparin (11) Full code status Current Visit: Yes Status: Acute Code(s): Z78.9 - OTHER SPECIFIED HEALTH STATUS SNOMED Code(s): 678314663 Status and Disposition: Inpatient Attending: Moraima Montague
[2018-02-08] MEDS: Azithromycin IV(*) 500 MG in NS 0.9% 250 ML* 250 ML IVPB SCH (08:49)
[2018-02-08] MEDS: Insulin LISPRO* 1 UNITS UNIT SUBCUT SCH ×7 (08:55→20:28)
[2018-02-08] MEDS: Aspirin 81 mg CHEW TAB* 81 MG TAB.CHEW PO SCH (08:55)
[2018-02-08] MEDS: Cholecalciferol TAB* 1000 UNITS PO SCH (08:55)
[2018-02-08] MEDS: guaiFENesin ER TAB 600 MG PO SCH ×2 (08:55→20:28)
[2018-02-08] MEDS: Multivitamins/Minerals TAB PO SCH (08:55)
[2018-02-08] MEDS: Losartan TAB* 25 MG PO SCH (08:55)
[2018-02-08] MEDS: predniSONE TAB* 20 MG PO SCH (08:56)
[2018-02-08] MEDS: Hydrochlorothiazide TAB* 25 MG PO SCH (08:56)
[2018-02-08] MEDS: Cyanocobalamin TAB* 500 MCG PO SCH (08:56)
[2018-02-08] MEDS: CMCS Epleronone (NF) 25 MG TAB PO SCH (08:56)
[2018-02-08] MEDS: amLODIPine TAB* 5 MG PO SCH (08:56)
[2018-02-08] MEDS: Docusate CAP* 100 MG PO PRN (08:57)
[2018-02-08] MEDS: Senna TAB PO PRN (08:57)
[2018-02-08] MEDS: Atorvastatin* 20 MG TAB PO SCH (08:57)
[2018-02-08] MEDS: Metoprolol Tartrate TAB* 25 MG PO SCH ×2 (08:57→20:28)
[2018-02-08] MEDS ORDERED: Magnesium Oxide TAB* 400 MG PO ONE (11:51)
[2018-02-08] MEDS: Albuterol/Ipratropium NEB.SOL* Albuterol 2.5 MG/Ipratropium 0.5 MG 3 ML INH SCH ×2 (13:22→20:43)
[2018-02-08] MEDS: Insulin GLARGINE(*) 1 UNITS UNIT SUBCUT SCH (20:28)
[2018-02-08] MEDS: Benzocaine/Menthol LOZ* 1 LOZENGE PO PRN (20:28)
[2018-02-08] MEDS: Benzonatate CAP* 100 MG PO PRN (20:58)
[2018-02-08] MEDS: Doxazosin TAB* 2 MG PO SCH (20:58)
[2018-02-09] MEDS: Albuterol/Ipratropium NEB.SOL* Albuterol 2.5 MG/Ipratropium 0.5 MG 3 ML INH SCH ×4 (00:35→19:47)
[2018-02-09] MEDS: Heparin VIAL(*) 5000 UNITS/ML VIAL (FIVE THOUSAND) SUBCUT SCH ×3 (05:14→20:45)
[2018-02-09] MEDS: cefTRIAXone(*) 1 GM in NS 0.9% 50 ML* 50 ML IVPB SCH (05:14)
[2018-02-09 06:45] LABS: ABS Basophils 0 10^3/ul (0-0.2); ABS Eosinophils 0 10^3/ul (0-0.6); ABS Lymphocytes 0.8 10^3/ul (1.0-4.8); ABS Monocytes 0.6 10^3/ul (0-0.8); ABS Neutrophils 4.2 10^3/ul (1.5-7.7); ABS Nucleated RBC 0 10^3/ul; Eosinophil % 0.1 % (0-6); Hematocrit 31 % (42-52); Hemoglobin 10.9 g/dl (14.0-18.0); Lymphocyte % 14.2 % (25-47); Mean Corpuscular HGB Conc 35 g/dl (31-36); Mean Corpuscular Hemoglobin 32 pg (27-31); Mean Corpuscular Volume 93 fL (80-94); Mean Platelet Volume 8.9 um3 (7.4-10.4); Nucleated Red Blood Cells % 0; Platelet Count 171 10^3/ul (150-450); Red Cell Distribution Width 14 % (10.5-15); White Blood Count 5.6 10^3/ul (3.5-10.8)
[2018-02-09 07:03] LABS: EGFR Non-African American 57.3 (>60)
[2018-02-09] MEDS: Insulin LISPRO* 1 UNITS UNIT SUBCUT SCH ×7 (08:43→20:45)
[2018-02-09] MEDS: Losartan TAB* 25 MG PO SCH (08:45)
[2018-02-09] MEDS: Hydrochlorothiazide TAB* 25 MG PO SCH (08:45)
[2018-02-09] MEDS: Multivitamins/Minerals TAB PO SCH (08:46)
[2018-02-09] MEDS: predniSONE TAB* 20 MG PO SCH (08:46)
[2018-02-09] MEDS: guaiFENesin ER TAB 600 MG PO SCH ×2 (08:46→20:44)
[2018-02-09] MEDS: Atorvastatin* 20 MG TAB PO SCH (08:47)
[2018-02-09] MEDS: amLODIPine TAB* 5 MG PO SCH (08:47)
[2018-02-09] MEDS: Aspirin 81 mg CHEW TAB* 81 MG TAB.CHEW PO SCH (08:47)
[2018-02-09] MEDS: Cholecalciferol TAB* 1000 UNITS PO SCH (08:47)
[2018-02-09] MEDS: Metoprolol Tartrate TAB* 25 MG PO SCH ×2 (08:48→20:44)
[2018-02-09] MEDS: Cyanocobalamin TAB* 500 MCG PO SCH (08:48)
[2018-02-09] MEDS: Azithromycin IV(*) 500 MG in NS 0.9% 250 ML* 250 ML IVPB SCH (08:53)
[2018-02-09] MEDS: CMCS Epleronone (NF) 25 MG TAB PO SCH (08:58)
[2018-02-09] MEDS ORDERED: Polyethylene Glycol 3350* 17 GM PACKET PO ONE (09:00)
[2018-02-09] MEDS: Docusate CAP* 100 MG PO PRN (09:44)
--- NOTE | 2018-02-09 09:45 | PN ---
Subjective Date of Service: 02/09/18 Interval History: Pt reports feeling better overall: his breathing is improving, though he is still on 2L NC. H is coughing less frequently and feels less fatigued than yesterday. He denies chest pain, abdominal pain/nausea, headache, dizziness, dysuria, numbness or tingling in his extremities. He does endorse constipation, and miralax was added to his bowel regimen. Objective Active Medications: Acetaminophen (Tylenol Tab*) 975 mg PO Q4H PRN PRN Reason: FEVER/PAIN Last Admin: 02/07/18 20:17 Dose: 975 mg Albuterol/Ipratropium (Duoneb (Albuterol 2.5 Mg/Ipratropium 0.5 Mg)) 1 neb INH [id number] AWAKE PRN PRN Reason: sob/wheexing Last Admin: 02/08/18 02:21 Dose: 1 neb Albuterol/Ipratropium (Duoneb (Albuterol 2.5 Mg/Ipratropium 0.5 Mg)) 1 neb INH [id number] AWAKE [facility] Last Admin: 02/09/18 07:59 Dose: 1 neb Amlodipine Besylate (Norvasc Tab*) 10 mg PO QAM [facility]; Protocol Last Admin: 02/09/18 08:47 Dose: 10 mg Aspirin (Aspirin 81 Mg Chew Tab*) 81 mg PO QAM [facility] Last Admin: 02/09/18 08:47 Dose: 81 mg Atorvastatin Calcium (Lipitor*) 20 mg PO DAILY [facility] Last Admin: 02/09/18 08:47 Dose: 20 mg Benzonatate (Tessalon Cap*) 100 mg PO BID PRN PRN Reason: COUGH Last Admin: 02/08/18 20:58 Dose: 100 mg Cholecalciferol (Vitamin D Tab*) 1,000 units PO DAILY [facility] Last Admin: 02/09/18 08:47 Dose: 1,000 units Cyanocobalamin (Vitamin B12 Tab*) 2,000 mcg PO DAILY [facility] Last Admin: 02/09/18 08:48 Dose: 2,000 mcg Dextrose (D50w Syringe 50 Ml*) 12.5 gm IV PUSH .FOR FS < 60 - SS PRN PRN Reason: FS < 60 Docusate Sodium (Colace Cap*) 100 mg PO DAILY PRN PRN Reason: CONSTIPATION Last Admin: 02/08/18 08:57 Dose: 100 mg Doxazosin Mesylate (Cardura Tab*) 2 mg PO BEDTIME [facility] Last Admin: 02/08/18 20:58 Dose: 2 mg Eplerenone (Inspra (Nf)) 50 mg PO QAM [facility]; Protocol Last Admin: 02/09/18 08:58 Dose: 50 mg Guaifenesin (Mucinex*) 600 mg PO BID [facility] Last Admin: 02/09/18 08:46 Dose: 600 mg Heparin Sodium (Porcine) (Heparin Vial(*)) 5,000 units SUBCUT Q8HR [facility] Last Admin: 02/09/18 05:14 Dose: 5,000 units Hydrochlorothiazide (Hydrodiuril Tab*) 25 mg PO QAM [facility] Last Admin: 02/09/18 08:45 Dose: 25 mg Ceftriaxone Sodium 1 gm/ (Sodium Chloride) 50 mls @ 200 mls/hr IVPB Q24H [facility] Last Admin: 02/09/18 05:14 Dose: 200 mls/hr Azithromycin 500 mg/ Sodium (Chloride) 250 mls @ 250 mls/hr IVPB Q24H [facility] Last Admin: 02/09/18 08:53 Dose: 250 mls/hr Insulin Glargine (Lantus(*)) 70 units SUBCUT Q24H [facility] Last Admin: 02/08/18 20:28 Dose: 70 units Insulin Human Lispro (Humalog*) 0 units SUBCUT ACHS [facility]; Protocol Last Admin: 02/09/18 08:43 Dose: 2 units Insulin Human Lispro (Humalog*) 14 units SUBCUT TID AC [facility] Last Admin: 02/09/18 08:43 Dose: 14 units Losartan Potassium (Cozaar Tab*) 100 mg PO DAILY [facility] Last Admin: 02/09/18 08:45 Dose: 100 mg Magnesium Hydroxide (Milk Of Magnesia Liq*) 30 ml PO Q4H PRN PRN Reason: CONSTIPATION Last Admin: 02/07/18 20:18 Dose: 30 ml Metoprolol Tartrate (Lopressor Tab*) 25 mg PO BID [facility] Last Admin: 02/09/18 08:48 Dose: 25 mg Multivitamins/Minerals (Theragran/Minerals Tab*) 1 tab PO DAILY [facility] Last Admin: 02/09/18 08:46 Dose: 1 tab Ondansetron HCl (Zofran Inj*) 4 mg IV Q4H PRN PRN Reason: NAUSEA/VOMITING Prednisone (Deltasone Tab*) 20 mg PO DAILY [facility] Senna (Senokot Tab*) 1 tab PO DAILY PRN PRN Reason: CONSTIPATION Last Admin: 02/08/18 08:57 Dose: 1 tab Throat Lozenges (Chloraseptic Fariha*) 1 fariha PO Q6H PRN PRN Reason: SORE THROAT Last Admin: 02/08/18 20:28 Dose: 1 fariha Vital Signs - 8 hr 02/09/18 02/09/18 02/09/18 04:01 08:01 08:17 Temperature 97.9 F 97.7 F Pulse Rate 56 59 62 Respiratory 16 18 18 Rate Blood Pressure 134/59 132/47 (mmHg) O2 Sat by Pulse 99 98 97 Oximetry Oxygen Devices in Use Now: Nasal Cannula - 2L Eyes: No Scleral Icterus, PERRLA Ears/Nose/Mouth/Throat: NL Teeth, Lips, Gums, Mucous Membranes Moist Neck: NL Appearance and Movements; NL JVP Respiratory: Symmetrical Chest Expansion and Respiratory Effort Cardiovascular: NL Sounds; No Murmurs; No JVD, No Edema, - - Irregular rate consistent with PVCs on monitor Abdominal: NL Sounds; No Tenderness; No Distention Extremities: No Edema, No Clubbing, Cyanosis Skin: No Rash or Ulcers Neurological: Alert and Oriented x 3, NL Sensation, NL Muscle Strength and Tone Lines/Tubes/Other Access: Clean, Dry and Intact Peripheral IV Nutrition: Taking PO's Result Diagrams: 02/09/18 06:28 02/09/18 06:28 Additional Lab and Data: Lab Results 02/06/18 02/06/18 02/06/18 Range/Units 16:40 16:40 16:40 WBC 11.7 H (3.5-10.8) 10^3/ul RBC 4.11 (4.00-5.40) 10^6/ul Hgb 13.2 L (14.0-18.0) g/dl Hct 39 L (42-52) % MCV 94 (80-94) fL MCH 32 H (27-31) pg MCHC 34 (31-36) g/dl RDW 14 (10.5-15) % Plt Count 170 (150-450) 10^3/ul MPV 9.8 (7.4-10.4) um3 Neut % (Auto) 86.6 H (38-83) % Lymph % (Auto) 4.2 L (25-47) % [place] % (Auto) 9.0 H (0-7) % Eos % (Auto) 0 (0-6) % Baso % (Auto) 0.2 (0-2) % Absolute Neuts (auto) 10.1 H (1.5-7.7) 10^3/ul Absolute Lymphs (auto) 0.5 L (1.0-4.8) 10^3/ul Absolute Monos (auto) 1.0 H (0-0.8) 10^3/ul Absolute Eos (auto) 0 (0-0.6) 10^3/ul Absolute Basos (auto) 0 (0-0.2) 10^3/ul Absolute Nucleated RBC 0 10^3/ul Nucleated RBC % 0 Lactic Acid 0.9 (0.5-2.0) mmol/L Troponin I 0.06 H* (<0.04) ng/mL C-Reactive Protein 139.24 H (<8.01) mg/L B-Natriuretic Peptide ( - 100) pg/mL 02/06/18 Range/Units 16:40 WBC (3.5-10.8) 10^3/ul RBC (4.00-5.40) 10^6/ul Hgb (14.0-18.0) g/dl Hct (42-52) % MCV (80-94) fL MCH (27-31) pg MCHC (31-36) g/dl RDW (10.5-15) % Plt Count (150-450) 10^3/ul MPV (7.4-10.4) um3 Neut % (Auto) (38-83) % Lymph % (Auto) (25-47) % [place] % (Auto) (0-7) % Eos % (Auto) (0-6) % Baso % (Auto) (0-2) % Absolute Neuts (auto) (1.5-7.7) 10^3/ul Absolute Lymphs (auto) (1.0-4.8) 10^3/ul Absolute Monos (auto) (0-0.8) 10^3/ul Absolute Eos (auto) (0-0.6) 10^3/ul Absolute Basos (auto) (0-0.2) 10^3/ul Absolute Nucleated RBC 10^3/ul Nucleated RBC % Lactic Acid (0.5-2.0) mmol/L Troponin I (<0.04) ng/mL C-Reactive Protein (<8.01) mg/L B-Natriuretic Peptide 233 H ( - 100) pg/mL Microbiology and Other Data: Microbiology 02/06/18 18:12 Gram Stain - Final Sputum Expectorated 02/07/18 04:50 Legionella Urinary Antigen - Final Urine Negative Legionella Antigen Streptococcus pneumoniae Ag Screen - Final Negative S. pneumo Antigen Assess/Plan/Problems-Billing Assessment: Mr. Dillard is a 78 year old male with a PMG HTN, CAD, DM, OSM, gout who presented with 1 week of gradually worsening URI symptoms that progressed to productive cough with thick yellow sputum, shortness of breath, and low grade fever. CT consistent with PNA. Cultured and started on ceftriaxone and azitho and admitted to hospitalist service for CAP. - Patient Problems (1) Community acquired bacterial pneumonia Current Visit: Yes Status: Acute Code(s): J15.9 - UNSPECIFIED BACTERIAL PNEUMONIA SNOMED Code(s): 453957064 Comment: - Shortness of breath, cough and sore throat have improved. Satting 99% on 2L NC. Will try to wean today. - CXR (02/08) with right lung patchy infiltrate, consistent with his developing pneumonia. Resting comfortably today. Will continue supportive care with mucinex, tessalon, duonebs and prednisone (day 4- start tape tomorrow). Try to wean supplimental oxygen. - Leukocytosis improved. WBC WNL. - Continues to be afebrile - CT: Right lung and left lower lobe perihilar mainly centrilobular nodules - Sputum smear with 4+ gram pos cocci/1+ gram neg bacilli/2+ gram pos diplococci / 1+ gram neg coccobacilli. Culture with normal lea. - Procalcitonin 0.8 - Urine strep and legionella negative - Continue with ceftriaxone and azithromycin (2) Sepsis Current Visit: Yes Status: Acute Comment: - Resolving. Initially with Tachypnea + T max 101.3 in the setting of PNA. Now afebrile with RR WNL. (3) Non-sustained ventricular tachycardia Current Visit: Yes Status: Acute Code(s): I47.2 - VENTRICULAR TACHYCARDIA SNOMED Code(s): 319290199 Comment: - No new episodes but still with frequent PVCs - Seen by Dr Russell 02/07 who added metoprolol (per his note, listed allergy was due to low HR) and reccomended further outpatient workup if no additional episodes (4) Diabetes Current Visit: Yes Status: Acute Code(s): E11.9 - TYPE 2 DIABETES MELLITUS WITHOUT COMPLICATIONS SNOMED Code(s): 16684470 Comment: - Blood glucose <180 - Continue lantus 70 units and home standing aspart TID AC plus sliding scale lispro AC HS. - HgA1c 7.5 (5) CAD (coronary artery disease) Current Visit: Yes Status: Acute Code(s): I25.10 - ATHSCL HEART DISEASE OF [place] CORONARY ARTERY W/O ANG PCTRS SNOMED Code(s): 97635581 Comment: - Trop 0.06 --> 0.27 --> 0.24. No ST elevation on EKG. Likely demand ischemia in the setting of PNA. - Continue aspirin 81 mg and statin and f/u with Dr Russell as outpatint (6) Hypertension Current Visit: Yes Status: Acute Code(s): I10 - ESSENTIAL (PRIMARY) HYPERTENSION SNOMED Code(s): 48541008 Comment: - BP well controlled on current regimen norvasc, cardura, losartan, hydrochlorothiazide, eplerinone, now metoprolol as well. SBP 120s-150s (7) Chronic diastolic (congestive) heart failure Current Visit: Yes Status: Acute Code(s): I50.32 - CHRONIC DIASTOLIC ( CONGESTIVE) HEART FAILURE SNOMED Code(s): 744009548 Comment: - Rales in bilateral lung bases. No or JVD edema noted. Breathing seems to be improving, so will hold off on additional lasix at this time. - Echo 02/08 with moderate to severe LVH and abnormal LV diastolic function. EF 55-60% (8) Hyponatremia Current Visit: Yes Status: Acute Code(s): E87.1 - HYPO-OSMOLALITY AND HYPONATREMIA SNOMED Code(s): 16684435 Comment: - Trending back up 129 --> 125 -->127--> 131 - Will continue to monitor (9) Elevated bilirubin Current Visit: Yes Status: Acute Code(s): R17 - UNSPECIFIED JAUNDICE SNOMED Code(s): 122426914 Comment: - Normalized now. Likely secondary to sepsis. No abdominal pain or evidence of GI pathology. (10) DVT prophylaxis Current Visit: Yes Status: Acute Code(s): WUN3606 - SNOMED Code(s): 486639521 Comment: - SQ heparin (11) Full code status Current Visit: Yes Status: Acute Code(s): Z78.9 - OTHER SPECIFIED HEALTH STATUS SNOMED Code(s): 051424064 Status and Disposition: Inpatient. Anticipate discharge to home when medically stable. Attending: Moraima Montague
[2018-02-09] MEDS: Benzonatate CAP* 100 MG PO PRN (20:44)
[2018-02-09] MEDS: Insulin GLARGINE(*) 1 UNITS UNIT SUBCUT SCH (20:45)
[2018-02-09] MEDS: Doxazosin TAB* 2 MG PO SCH (20:45)
[2018-02-10] MEDS: Albuterol/Ipratropium NEB.SOL* Albuterol 2.5 MG/Ipratropium 0.5 MG 3 ML INH SCH ×2 (04:01→07:46)
[2018-02-10] MEDS: Heparin VIAL(*) 5000 UNITS/ML VIAL (FIVE THOUSAND) SUBCUT SCH ×2 (05:24→13:11)
[2018-02-10] MEDS: cefTRIAXone(*) 1 GM in NS 0.9% 50 ML* 50 ML IVPB SCH (05:24)
[2018-02-10 06:34] LABS: Hematocrit 32 % (42-52); Hemoglobin 10.9 g/dl (14.0-18.0); Mean Corpuscular HGB Conc 34 g/dl (31-36); Mean Corpuscular Hemoglobin 32 pg (27-31); Mean Corpuscular Volume 93 fL (80-94); Mean Platelet Volume 8.7 um3 (7.4-10.4); Platelet Count 203 10^3/ul (150-450); Red Blood Count 3.46 10^6/ul (4.00-5.40); Red Cell Distribution Width 13 % (10.5-15); White Blood Count 6.5 10^3/ul (3.5-10.8)
[2018-02-10 06:53] LABS: ABS Basophils 0 10^3/ul (0-0.2); ABS Eosinophils 0 10^3/ul (0-0.6); ABS Lymphocytes 1.1 10^3/ul (1.0-4.8); ABS Monocytes 0.7 10^3/ul (0-0.8); ABS Neutrophils 4.7 10^3/ul (1.5-7.7); ABS Nucleated RBC 0 10^3/ul; Eosinophil % 0.2 % (0-6); Lymphocyte % 16.5 % (25-47); Nucleated Red Blood Cells % 0.1
[2018-02-10 06:55] LABS: EGFR Non-African American 65.3 (>60)
[2018-02-10] MEDS: Insulin LISPRO* 1 UNITS UNIT SUBCUT SCH ×4 (07:47→13:11)
[2018-02-10] MEDS: Azithromycin IV(*) 500 MG in NS 0.9% 250 ML* 250 ML IVPB SCH (08:18)
[2018-02-10] MEDS: Losartan TAB* 25 MG PO SCH (08:19)
[2018-02-10] MEDS: CMCS Epleronone (NF) 25 MG TAB PO SCH (08:19)
[2018-02-10] MEDS: amLODIPine TAB* 5 MG PO SCH (08:19)
[2018-02-10] MEDS: Atorvastatin* 20 MG TAB PO SCH (08:19)
[2018-02-10] MEDS: guaiFENesin ER TAB 600 MG PO SCH (08:19)
[2018-02-10] MEDS: Metoprolol Tartrate TAB* 25 MG PO SCH (08:19)
[2018-02-10] MEDS: Aspirin 81 mg CHEW TAB* 81 MG TAB.CHEW PO SCH (08:20)
[2018-02-10] MEDS: Multivitamins/Minerals TAB PO SCH (08:20)
[2018-02-10] MEDS: Cyanocobalamin TAB* 500 MCG PO SCH (08:20)
[2018-02-10] MEDS: Hydrochlorothiazide TAB* 25 MG PO SCH (08:20)
[2018-02-10] MEDS: Cholecalciferol TAB* 1000 UNITS PO SCH (08:20)
[2018-02-10] MEDS ORDERED: predniSONE TAB* 20 MG PO SCH (09:00)
--- NOTE | 2018-02-10 11:47 | PN ---
Subjective Date of Service: 02/10/18 Interval History: Pt resting comfortable in bed. His oxygen was titrated off yesterday and he has not had any more shortness of breath, except while coughing. He has been walking around the floor without difficulty and without shortness of breath or dizziness. His cough and sore throat have also improved. His constipation has resolved. He denies chest pain, palpitations, N/V/D, abdominal pain, headache or numbness or tingling in extremities. Objective Active Medications: Acetaminophen (Tylenol Tab*) 975 mg PO Q4H PRN PRN Reason: FEVER/PAIN Last Admin: 02/07/18 20:17 Dose: 975 mg Albuterol/Ipratropium (Duoneb (Albuterol 2.5 Mg/Ipratropium 0.5 Mg)) 1 neb INH [id number] AWAKE PRN PRN Reason: sob/wheexing Last Admin: 02/08/18 02:21 Dose: 1 neb Albuterol/Ipratropium (Duoneb (Albuterol 2.5 Mg/Ipratropium 0.5 Mg)) 1 neb INH [id number] AWAKE [facility] Last Admin: 02/10/18 07:46 Dose: 1 neb Amlodipine Besylate (Norvasc Tab*) 10 mg PO QAM [facility]; Protocol Last Admin: 02/10/18 08:19 Dose: 10 mg Aspirin (Aspirin 81 Mg Chew Tab*) 81 mg PO QAM [facility] Last Admin: 02/10/18 08:20 Dose: 81 mg Atorvastatin Calcium (Lipitor*) 20 mg PO DAILY [facility] Last Admin: 02/10/18 08:19 Dose: 20 mg Benzonatate (Tessalon Cap*) 100 mg PO BID PRN PRN Reason: COUGH Last Admin: 02/09/18 20:44 Dose: 100 mg Cefpodoxime Proxetil (Vantin (Nf)) 200 mg PO Q12H [facility] Cholecalciferol (Vitamin D Tab*) 1,000 units PO DAILY [facility] Last Admin: 02/10/18 08:20 Dose: 1,000 units Cyanocobalamin (Vitamin B12 Tab*) 2,000 mcg PO DAILY [facility] Last Admin: 02/10/18 08:20 Dose: 2,000 mcg Dextrose (D50w Syringe 50 Ml*) 12.5 gm IV PUSH .FOR FS < 60 - SS PRN PRN Reason: FS < 60 Docusate Sodium (Colace Cap*) 100 mg PO DAILY PRN PRN Reason: CONSTIPATION Last Admin: 02/09/18 09:44 Dose: 100 mg Doxazosin Mesylate (Cardura Tab*) 2 mg PO BEDTIME [facility] Last Admin: 02/09/18 20:45 Dose: 2 mg Eplerenone (Inspra (Nf)) 50 mg PO QAM [facility]; Protocol Last Admin: 02/10/18 08:19 Dose: 50 mg Guaifenesin (Mucinex*) 600 mg PO BID [facility] Last Admin: 02/10/18 08:19 Dose: 600 mg Heparin Sodium (Porcine) (Heparin Vial(*)) 5,000 units SUBCUT Q8HR [facility] Last Admin: 02/10/18 05:24 Dose: 5,000 units Hydrochlorothiazide (Hydrodiuril Tab*) 25 mg PO QAM [facility] Last Admin: 02/10/18 08:20 Dose: 25 mg Insulin Glargine (Lantus(*)) 70 units SUBCUT Q24H [facility] Last Admin: 02/09/18 20:45 Dose: 70 units Insulin Human Lispro (Humalog*) 0 units SUBCUT ACHS [facility]; Protocol Last Admin: 02/10/18 07:47 Dose: Not Given Insulin Human Lispro (Humalog*) 14 units SUBCUT TID AC [facility] Last Admin: 02/10/18 07:47 Dose: Not Given Losartan Potassium (Cozaar Tab*) 100 mg PO DAILY [facility] Last Admin: 02/10/18 08:19 Dose: 100 mg Magnesium Hydroxide (Milk Of Magnesia Liq*) 30 ml PO Q4H PRN PRN Reason: CONSTIPATION Last Admin: 02/07/18 20:18 Dose: 30 ml Metoprolol Tartrate (Lopressor Tab*) 25 mg PO BID [facility] Last Admin: 02/10/18 08:19 Dose: 25 mg Multivitamins/Minerals (Theragran/Minerals Tab*) 1 tab PO DAILY [facility] Last Admin: 02/10/18 08:20 Dose: 1 tab Ondansetron HCl (Zofran Inj*) 4 mg IV Q4H PRN PRN Reason: NAUSEA/VOMITING Prednisone (Deltasone Tab*) 20 mg PO DAILY [facility] Last Admin: 02/10/18 08:20 Dose: 20 mg Senna (Senokot Tab*) 1 tab PO DAILY PRN PRN Reason: CONSTIPATION Last Admin: 02/08/18 08:57 Dose: 1 tab Throat Lozenges (Chloraseptic Fariha*) 1 fariha PO Q6H PRN PRN Reason: SORE THROAT Last Admin: 02/08/18 20:28 Dose: 1 fariha Vital Signs - 8 hr 02/10/18 02/10/18 02/10/18 04:15 07:39 07:48 Temperature 97.8 F 97.4 F Pulse Rate 51 61 62 Respiratory 16 14 14 Rate Blood Pressure 142/64 156/52 (mmHg) O2 Sat by Pulse 99 96 93 Oximetry 02/10/18 08:00 Temperature Pulse Rate Respiratory 20 Rate Blood Pressure (mmHg) O2 Sat by Pulse Oximetry Oxygen Devices in Use Now: None Eyes: No Scleral Icterus, PERRLA Ears/Nose/Mouth/Throat: NL Teeth, Lips, Gums, Mucous Membranes Moist Neck: NL Appearance and Movements; NL JVP Respiratory: Symmetrical Chest Expansion and Respiratory Effort, Clear to Auscultation Cardiovascular: No Edema, - - Systolic murmur 2/6 heard throughout. Regular rate and rhythm. Abdominal: NL Sounds; No Tenderness; No Distention Extremities: No Edema, No Clubbing, Cyanosis Skin: No Rash or Ulcers, No Nodules or Sclerosis Neurological: Alert and Oriented x 3 Lines/Tubes/Other Access: Clean, Dry and Intact Peripheral IV Nutrition: Taking PO's Result Diagrams: 02/10/18 06:09 02/10/18 06:09 Additional Lab and Data: Lab Results 02/06/18 02/06/18 02/06/18 Range/Units 16:40 16:40 16:40 WBC 11.7 H (3.5-10.8) 10^3/ul RBC 4.11 (4.00-5.40) 10^6/ul Hgb 13.2 L (14.0-18.0) g/dl Hct 39 L (42-52) % MCV 94 (80-94) fL MCH 32 H (27-31) pg MCHC 34 (31-36) g/dl RDW 14 (10.5-15) % Plt Count 170 (150-450) 10^3/ul MPV 9.8 (7.4-10.4) um3 Neut % (Auto) 86.6 H (38-83) % Lymph % (Auto) 4.2 L (25-47) % Fannin % (Auto) 9.0 H (0-7) % Eos % (Auto) 0 (0-6) % Baso % (Auto) 0.2 (0-2) % Absolute Neuts (auto) 10.1 H (1.5-7.7) 10^3/ul Absolute Lymphs (auto) 0.5 L (1.0-4.8) 10^3/ul Absolute Monos (auto) 1.0 H (0-0.8) 10^3/ul Absolute Eos (auto) 0 (0-0.6) 10^3/ul Absolute Basos (auto) 0 (0-0.2) 10^3/ul Absolute Nucleated RBC 0 10^3/ul Nucleated RBC % 0 Lactic Acid 0.9 (0.5-2.0) mmol/L Troponin I 0.06 H* (<0.04) ng/mL C-Reactive Protein 139.24 H (<8.01) mg/L B-Natriuretic Peptide ( - 100) pg/mL 02/06/ Range/Units 16:40 WBC (3.5-10.8) 10^3/ul RBC (4.00-5.40) 10^6/ul Hgb (14.0-18.0) g/dl Hct (42-52) % MCV (80-94) fL MCH (27-31) pg MCHC (31-36) g/dl RDW (10.5-15) % Plt Count (150-450) 10^3/ul MPV (7.4-10.4) um3 Neut % (Auto) (38-83) % Lymph % (Auto) (25-47) % Fannin % (Auto) (0-7) % Eos % (Auto) (0-6) % Baso % (Auto) (0-2) % Absolute Neuts (auto) (1.5-7.7) 10^3/ul Absolute Lymphs (auto) (1.0-4.8) 10^3/ul Absolute Monos (auto) (0-0.8) 10^3/ul Absolute Eos (auto) (0-0.6) 10^3/ul Absolute Basos (auto) (0-0.2) 10^3/ul Absolute Nucleated RBC 10^3/ul Nucleated RBC % Lactic Acid (0.5-2.0) mmol/L Troponin I (<0.04) ng/mL C-Reactive Protein (<8.01) mg/L B-Natriuretic Peptide 233 H ( - 100) pg/mL Microbiology and Other Data: Microbiology 02/06/18 18:12 Gram Stain - Final Sputum Expectorated 02/07/18 04:50 Legionella Urinary Antigen - Final Urine Negative Legionella Antigen Streptococcus pneumoniae Ag Screen - Final Negative S. pneumo Antigen Assess/Plan/Problems-Billing Assessment: Mr. Dillard is a 78 year old male with a PMG HTN, CAD, DM, OSM, gout who presented with 1 week of gradually worsening URI symptoms that progressed to productive cough with thick yellow sputum, shortness of breath, and low grade fever. CT consistent with PNA. Cultured and started on ceftriaxone and azitho and admitted to hospitalist service for CAP. - Patient Problems (1) Community acquired bacterial pneumonia Status: Acute Code(s): J15.9 - UNSPECIFIED BACTERIAL PNEUMONIA SNOMED Code(s ): 642631684 Comment: - Shortness of breath, cough and sore throat have improved. Weaned off of oxygen and has been satting mid 90s at rest and while walking. - Afebrile withouth leucocytosis - Pt has completed 5 days of treatment witth ceftriaxone and azithromycin. Will change to PO vantin for an additional 10 days as outpatient. - Pt has also completed 5 days of prednisone, which will be discontinued. - Continue mucines and tesselon as outpatient (2) Sepsis Status: Acute Comment: - Resolved. Now afebrile with RR WNL. (3) Non-sustained ventricular tachycardia Status: Acute Code(s): I47.2 - VENTRICULAR TACHYCARDIA SNOMED Code(s): 354490581 Comment: - No new episodes but still with frequent PVCs - Seen by Dr Russell 02/07 who added metoprolol (per his note, listed allergy was due to low HR) and recomended further outpatient workup if no additional episodes (4) Diabetes Status: Acute Code(s): E11.9 - TYPE 2 DIABETES MELLITUS WITHOUT COMPLICATIONS SNOMED Code(s): 07430548 Comment: - Blood glucose <180 - Continue home regimen upon discharge of lantus 70 units and standing aspart TID AC - HgA1c 7.5 (5) CAD (coronary artery disease) Status: Acute Code(s): I25.10 - ATHSCL HEART DISEASE OF [place] CORONARY ARTERY W/O ANG PCTRS SNOMED Code(s): 69697485 Comment: - Trop 0.06 --> 0.27 --> 0.24. No ST elevation on EKG. Likely demand ischemia in the setting of PNA. - Continue aspirin 81 mg and statin and f/u with Dr Russell as outpatint (6) Hypertension Status: Acute Code(s): I10 - ESSENTIAL (PRIMARY) HYPERTENSION SNOMED Code(s) : 95693315 Comment: - BP well controlled on current regimen norvasc, cardura, losartan, hydrochlorothiazide, eplerinone, now metoprolol as well. SBP 120s-150s (7) Chronic diastolic (congestive) heart failure Status: Acute Code(s): I50.32 - CHRONIC DIASTOLIC (CONGESTIVE) HEART FAILURE SNOMED Code(s): 792627029 Comment: - No evidence of acute exacerbation. Lungs clear. No or JVD edema noted. - Echo 02/08 with moderate to severe LVH and abnormal LV diastolic function. EF 55-60% (8) Hyponatremia Status: Acute Code(s): E87.1 - HYPO-OSMOLALITY AND HYPONATREMIA SNOMED Code( s): 07352808 Comment: - Resolved (9) Elevated bilirubin Status: Acute Code(s): R17 - UNSPECIFIED JAUNDICE SNOMED Code(s): 055364279 Comment: - Normalized now. Likely secondary to sepsis. No abdominal pain or evidence of GI pathology. (10) DVT prophylaxis Status: Acute Code(s): PIU1874 - SNOMED Code(s): 774610345 Comment: - SQ heparin (11) Full code status Status: Acute Code(s): Z78.9 - OTHER SPECIFIED HEALTH STATUS SNOMED Code(s) : 165825976 Status and Disposition: Inpatient. Anticipate discharge to home when medically stable.
[2018-02-10 13:04] VITALS: BP 132/48
--- NOTE | 2018-02-11 08:11 | DS ---
CC: Dr. Noa Fernandez; Dr. Russell * DISCHARGE SUMMARY: DATE OF ADMISSION: 02/06/18 DATE OF DISCHARGE: 02/10/18 PROVIDER: Belkis Jacob NP ATTENDING PHYSICIAN: Dr. Greer.* (DICTATED BY BELKIS JACOB NP) PRIMARY CARE PROVIDER: Dr. Noa Fernandez. CONSULTING PHYSICIAN: Dr. Russell, Cardiology PRIMARY DIAGNOSIS: Community-acquired pneumonia. SECONDARY DIAGNOSES: 1. Non-sustained ventricular tachycardia. 2. Coronary artery disease. 3. Hypertension. 4. Chronic diastolic heart failure. 5. Diabetes. 6. Gout. DISCHARGE MEDICATIONS: 1. NovoLog 14 units subcutaneous t.i.d. a.c. 2. Vitamin B12 2000 mcg p.o. daily. 3. Fish oil 1000 mg p.o. daily. 4. Multivitamin/minerals 1 tab p.o. daily. 5. Cardura 2 mg p.o. at bedtime. 6. Avapro 300 mg p.o. daily. 7. Colchicine 0.6 mg p.o. daily p.r.n. 8. Lipitor 20 mg p.o. daily. 9. Aspirin 81 mg p.o. q.a.m. 10. Vitamin D tab 1000 mcg p.o. daily. 11. Felodipine 10 mg p.o. q.a.m. 12. Eplerenone 50 mg p.o. q.a.m. 13. HydroDIURIL 25 mg p.o. q.a.m. 14. Levemir 66 units subcu daily. 15. Tramadol 50 to 100 mg p.o. q.6h. p.r.n. 16. Cialis 5 to 10 mg p.o. daily p.r.n. 17. Mucinex 600 mg p.o. b.i.d. p.r.n. 18. Lopressor 25 mg p.o. b.i.d. 19. Vantin 200 mg p.o. q.12 hours. 20. Tessalon 100 mg p.o. b.i.d. p.r.n. HOSPITAL COURSE: Mr. Dillard is a 78-year-old male with a past medical history of hypertension, coronary artery disease, diabetes, sleep apnea, and gout, who presented to the ED with 1 week of gradually worsening upper respiratory symptoms that progressed to a productive cough with thick yellow sputum, shortness of breath, and a low-grade fever. His temperature on admission was 99.7 with a T-max of 101.3 later that evening. The patient was started on 3 L of supplemental oxygen and was satting 95%. Labs were notable for a procalcitonin of 0.8, white blood cell count of 11.7. He had a chest CT, which was consistent with pneumonia. He was cultured and started on ceftriaxone and azithromycin as well as prednisone 40 mg and Mucinex and Tessalon and admitted to the hospitalist service for community- acquired pneumonia. Blood cultures were negative, Urine strep and legionella were negative. Initial gram stain showed multiple organisms but sputum culture just grew normal lea. He did have 1 episode of acute shortness of breath after a coughing episode overnight on the second night of his stay and was placed on 32% FiO2 and given 40 mg of IV Lasix with good response as well as DuoNebs. He was able to be weaned back on to 3 L nasal cannula of oxygen the next morning. Of note, the patient did initially present with a troponin of 0.06 that peaked at 0.27 and then began to trend down. No ST elevation on the EKG. This was likely demand ischemia in the setting of pneumonia. He did also have 2 short episodes of asymptomatic nonsustained VT early in his admission, 9 beats one time and 7 beats another time. His magnesium was found to be 1.[address] Russell, who is also his outpatient ship's cook, saw the patient and added metoprolol b.i.d. , after which the patient did not have any additional episodes of VT, although he does still have frequent PVCs. He will follow up with Dr. Russell as an outpatient as his annual cardiology appointment is coming up. Also, of note, he did have a decrease in his H/H over the course of his hospital stay, from 13.2/ 39 to 10.9/31, however did level off at 10.9, likely in the setting of sepsis. Pt denied and dark tarry stools or BRBPR. No signs of scute bleeding were noted. On the day of discharge, the patient denies shortness of breath and reported that his cough and sore throat continued to improve. He was weaned off supplemental oxygen and maintained on oxygen saturations of 93% to 95% while ambulating. He has completed 5-day course of prednisone as well as ceftriaxone and azithromycin and will be discharged on Vantin 200 mg b.i.d. for an additional 10 days. DISPOSITION: Discharged to home. DIET: Carb controlled diet. ACTIVITY: Activity as tolerated. FOLLOWUP: Please follow up with Dr. Fernandez in 4 to 7 days. Please follow up with Dr. Russell at annual cardiology appointment. TIME SPENT: Time spent for this discharge was 35 minutes. BELKIS JACOB, SYLVAIN [id number]/CPS #: [id number] FAVIOLA
[2018-02-11] MEDS ORDERED: Cefpodoxime (NF) 200 MG TAB PO SCH (09:00)
== END 2018-02-10 13:37 | disposition home or self-care (01) | DRG 871 ==
LOC: ED 16:24 → MEDTELE 19:26
PROVIDERS: ADMIT Internal Medicine; ATTEND Internal Medicine
PROC: 5A09357 Assistance with Respiratory Ventilation, Less than 24 Consecutive Hours, Continuous Positive Airway Pressure (ICD-10-PCS; principal; 2018-02-08)
DX: A41.9 Sepsis, unspecified organism (principal); J18.9 Pneumonia, unspecified organism; I47.2 Ventricular tachycardia; E87.1 Hypo-osmolality and hyponatremia; I50.32 Chronic diastolic (congestive) heart failure; I24.8 Other forms of acute ischemic heart disease; G47.33 Obstructive sleep apnea (adult) (pediatric); M10.9 Gout, unspecified; E66.9 Obesity, unspecified; E78.5 Hyperlipidemia, unspecified; I25.10 Atherosclerotic heart disease of native coronary artery without angina pectoris; E11.36 Type 2 diabetes mellitus with diabetic cataract; I35.0 Nonrheumatic aortic (valve) stenosis; E11.65 Type 2 diabetes mellitus with hyperglycemia; R09.02 Hypoxemia; I49.3 Ventricular premature depolarization; J02.9 Acute pharyngitis, unspecified; I11.0 Hypertensive heart disease with heart failure; Z79.82 Long term (current) use of aspirin; Z88.5 Allergy status to narcotic agent; Z88.8 Allergy status to other drugs, medicaments and biological substances; Z68.33 Body mass index [BMI] 33.0-33.9, adult; Z85.828 Personal history of other malignant neoplasm of skin; Z87.891 Personal history of nicotine dependence; Z72.89 Other problems related to lifestyle; Z79.4 Long term (current) use of insulin
CPT/HCPCS: 36415; 71045; 71046; 71250; 80048; 80053; 82247; 82728; 83036; 83540; 83550; 83605; 83735; 83880; 83930; 84145; 84484; 85025; 85027; 86140; 87040; 87070; 87077; 87205; 87651; 87899; 93005; 93306; 94640; 94660; 99283; A9270-GY; J0456; J0696; J1644; J1940; J3475; J7512

== ENCOUNTER 2018-02-24 20:30 | Inpatient (IN) | payer MEDICARE, OTHER ==
[2018-02-24] MEDS ORDERED: Nitroglycerin TAB 0.4 MG* 0.4 MG TAB SL ONE (21:15)
[2018-02-24] MEDS ORDERED: Morphine VIAL* 4 MG/ML VIAL (1 ml vial) IV ONE (21:16)
--- NOTE | 2018-02-24 21:18 | ED ---
HPI Chest Pain - HPI Summary HPI Summary: This patient is a 78 year old M [place] [facility] [place] by his with a chief complaint of chest pressure since 16:00. Pt notes that the pain worsened in the last few hours. Pt was admitted to [facility] [place] and discharged 14 days ago with pneumonia. Pts notes that the patient has been doing yard work every day since he was discharged. EMS administered NTG and ASA [employer] but he notes it did not alleviate his pain. The patient rates the pain 4/10 in severity. Symptoms aggravated by nothing. Symptoms alleviated by nothing. Patient reports SOB. Pt notes that he had a cardiac event while at [facility] [place] 2 weeks ago. Hx of aortic valve issues. Hx of insulin dependent DM, HTN, hypercholestemia - History of Current Complaint Time Seen by Provider: 02/24/18 20:43 Hx Obtained From: Patient Onset/Duration: Started Hours Ago, Still Present, Worse Since Time of Onset: 16:00 Timing: Constant, Lasting Hours Initial Severity: Moderate Current Severity: Moderate Pain Intensity: 4 Pain Scale Used: 0-10 Numeric Chest Pain Radiates: No Character: Pressure/Squeezing Aggravating Factor(s): Nothing Alleviating Factor(s): Nothing Associated Signs and Symptoms: Positive: Chest Pain - Additional Pertinent History Primary Care Physician: [id number] - Allergy/Home Medications Allergies/Adverse Reactions: Allergies Allergy/AdvReac Type Severity Reaction Status Date / Time codeine Allergy Nausea Verified 02/06/18 17:03 metformin Allergy Diarrhea Verified 02/06/18 17:03 PMH/Surg Hx/FS Hx/Imm Hx Endocrine/Hematology History: Reports: Hx Diabetes - II requiring insulin Denies: Hx Anticoagulant Therapy, Hx Blood Disorders, Hx Blood Transfusions, Hx Systemic Lupus Erythematosus, Hx Sickle Cell Disease, Hx Thyroid Disease, Hx Unexplained Bleeding Cardiovascular History: Reports: Hx Coronary Artery Disease - CATH 2011 NO STENTS, Hx Hypertension - WELL CONTROLLED, Other Cardiovascular Problems/ Disorders - MURMUR, "LEAKY VALVE" Denies: Hx Congenital Heart Disease, Hx Congestive Heart Failure, Hx Embolism , Hx Myocardial Infarction, Hx Pacemaker/ICD, Hx Rheumatic Fever, Hx Syncope Respiratory History: Reports: Hx Sleep Apnea Denies: Hx Asthma, Hx Bronchopulmonary Dysplasia, Hx Chronic Bronchitis, Hx Chronic Obstructive Pulmonary Disease (COPD), Hx Cystic Fibrosis, Hx Lung Cancer , Hx Pneumonia, Hx Pulmonary Embolism, Hx Seasonal Allergies GI History: Denies: Hx Crohn's Disease, Hx Gall Bladder Disease, Hx Gastroesophageal Reflux Disease, Hx Gastrointestinal Bleed, Hx Hiatal Hernia, Hx Ileostomy, Hx Pyloric Stenosis, Hx Ulcer History: Denies: Hx Benign Prostatic Hyperplasia, Hx Chronic Renal Failure, Hx Dialysis, Hx Kidney Stones, Hx Renal Disease Musculoskeletal History: Reports: Hx Gout Denies: Hx Rheumatoid Arthritis, Hx Back Problems, Hx Congenital Bone Abnormalities, Hx Fibromyalgia, Hx Orthopedic Injury, Hx Osteoporosis, Hx Tendonitis Sensory History: Reports: Hx Contacts or Glasses Denies: Hx Cataracts, Hx Eye Injury, Hx Eye Prosthesis, Hx Glaucoma, Hx Legally Blind, Hx Macular Degeneration, Hx Vision Problem, Hx Deafness, Hx Hearing Aid, Hx Hearing Problem Opthamlomology History: Reports: Hx Contacts or Glasses Denies: Hx Cataracts, Hx Eye Injury, Hx Eye Prosthesis, Hx Glaucoma, Hx Legally Blind, Hx Macular Degeneration, Hx Vision Problem Psychiatric History: Denies: Hx Anxiety, Hx Eating Disorder, Hx Oppositional Butts Disorder, Hx Depression, Hx Panic Disorder, Hx Post Traumatic Stress Disorder, Hx Inpatient Treatment, Hx Community Mental Health Tx, Hx Schizophrenia, Hx Bipolar Disorder, Hx Suicide Attempt, Hx of Violent Episodes Against Others, Other Psychiatric Issues/Disorders - Cancer History Hx Chemotherapy: No Hx Palliative Cancer Treatment: No - Surgical History Surgery Procedure, Year, and Place: BILAT ROTATOR CUFF SURGERIES [facility]. HEMORRHOIDECTOMY [facility] Hx Anesthesia Reactions: No Infectious Disease History: Denies: Hx Clostridium Difficile, Hx Hepatitis, Hx of Known/Suspected MRSA, Hx Shingles, Hx Tuberculosis, Hx Known/Suspected VRE, Hx Known/Suspected VRSA - Family History Known Family History: Positive: Diabetes, Other - CHF - Social History Alcohol Use: Rare Alcohol Amount: 4 NIGHTS/WEEK Substance Use Type: Reports: None Hx Tobacco Use: No Smoking Status (MU): Former Smoker Have You Smoked in the Last Year: No Review of Systems Negative: Fever Negative: Epistaxis Positive: Chest Pain Negative: Vomiting Negative: Rash All Other Systems Reviewed And Are Negative: Yes Physical Exam - Summary Physical Exam Summary: GENERAL: Patient is a well-developed and nourished M who is lying comfortable in the stretcher. Patient is not in any acute respiratory distress. HEAD AND FACE: Normocephalic EYES: PERRLA, EOMI x 2. EARS: Hearing grossly intact. MOUTH: Oropharynx within normal limits. NECK: Supple, trachea is midline, no adenopathy, no JVD, no carotid bruit. CHEST: Symmetric, no tenderness at palpation LUNGS: Clear to auscultation bilaterally. No wheezing or crackles. CVS: Regular rate and rhythm, S1 and S2 present, no murmurs or gallops appreciated. ABDOMEN: Soft, non-tender. Bowel sounds are normal. No abdominal abnormal pulsations. EXTREMITIES: Full ROM in all major joints, no edema, no cyanosis or clubbing. NEURO: Alert and oriented x 3. No acute neurological deficits. Speech is normal and follows commands. SKIN: Dry and warm Triage Information Reviewed: Yes Vital Signs Reviewed: Yes Diagnostics - Laboratory Result Diagrams: 02/25/18 07:08 02/25/18 07:08 Lab Statement: Any lab studies that have been ordered have been reviewed, and results considered in the medical decision making process. - Radiology CXR Radiology Interpretation Completed By: ED Physician - pending official report Summary of Radiographic Findings: no acute cardiopulmonary disease. - EKG 20:52 Cardiac Rate: Bradycardia - at 56 bpm EKG Rhythm: Sinus Bradycardia ST Segment: Non-Specific EKG Comparison: No Significant Change Summary of EKG Findings: sinus bradycardia at 56 bpm with minimally prolonged VA intervals and minimal ST elevation in anterior leads similar to previous EKG on 02/07/18 21:13 Cardiac Rate: Bradycardia - at 57 bpm EKG Rhythm: Sinus Bradycardia EKG Comparison: No Significant Change Summary of EKG Findings: sinus bradycardia at 57 bpm with minimally prolonged VA intervals and minimal ST elevation in anterior leads similar to previous EKG on 02/07/18 Chest Pain Course/Dx - Course Course Of Treatment: This patient is a 78 year old M [place] [facility] [place] with SOB and chest pressure since 16:00. Pt was admitted to [facility] [place] and discharged 14 days ago with pneumonia. Hx of insulin dependent DM, HTN, hypercholestemia. An EKG at 20: 52 reveals sinus bradycardia at 56 bpm with minimally prolonged VA intervals and minimal ST elevation in anterior leads similar to previous EKG on 02/07/18. An EKG at 21:13 reveals sinus bradycardia at 57 bpm with minimally prolonged VA intervals and minimal ST elevation in anterior leads similar to previous EKG on 02/07/18. CXR reveals, per ED physician, no acute cardiopulmonary disease, pending official report. Discussed care with Dr. Patel, dramatic agent, who reviewed the pts EKGs and advised to, for now, treat it as an NSTEMI and to get the pts BP under control. Discussed care with Dr. Greer, hospitalist, who agreed to admit patient. I discussed results with patient. The patient agrees with this plan. - Diagnoses Provider Diagnoses: Chest pain - Provider Notifications Discussed Care Of Patient With: Tristen Patel Time Discussed With Above Provider: 21:30 Instructed by Provider To: Other - Dr. Patel, dramatic agent, looked at the patient's old and new EKGs. He thinks the new EKG is similar to previous EKG with ST elevation. For now, treat it as an NSTEMI and to get the pts BP under control. At 22:00 Dr. Greer, hospitalist, agreed to admit pt to [facility]. Discharge - Sign-Out/Discharge Documenting (check all that apply): Patient Departure - admit to [facility] [place] [facility] - Discharge Plan Condition: Stable Disposition: ADMITTED TO [facility] - Billing Disposition and Condition Condition: STABLE Disposition: Admitted to [facility] - Attestation Statements Document Initiated by Scribe: Yes Documenting Scribe: Emely Finch Provider For Whom Scribe is Documenting (Include Credential): Mary Marinelli MD Scribe Attestation: Emely Jackson, scribed for Mary Marinelli MD on 02/26/18 at 0111. Scribe Documentation Reviewed: Yes Provider Attestation: The documentation as recorded by the scribe, Emely Finch accurately reflects the service I personally performed and the decisions made by Sai tellez MD
[2018-02-24] MEDS ORDERED: Ondansetron INJ* 2 MG/ML VIAL ONE (21:19)
--- OUTSIDE RECORDS SUMMARY | 2018-02-24 21:26 | XMS REPORT ---
:1940 External Reference #:[id number] Author Organization [facility] Address [address] [place] [address] [place] [address] Phone [phone] Care Team Providers Name Role Phone Noa Fernandez MD Primary Care Physician Unavailable Payers Type Date Identification Numbers Payment Provider Subscriber Medicare Primary Effective: Policy Number: Medicare Marie Sweeney 2004 [id number] PayID: [id number] [address] [place] [address] Medigap Part B Policy Number: [id number] [facility] Marie Sweeney PayID: [id number] [address] [place] [address] Advance Directives Type Date Description Status Comment Other Directive 11/18/2013 Health Care Proxy Current and Verified Problems Date Description Provider Status Onset: 02/04/2010 Type 2 diabetes mellitus Noa Fernandez M.D. Active Onset: 02/04/2010 Benign essential hypertension Noa Fernandez M.D. Active Onset: 09/06/2011 Coronary arteriosclerosis Noa eFrnandez M.D. Active Onset: 08/10/2013 Precordial pain Nia Bishop M.D. Active Onset: 08/10/2013 Heart murmur Nia Bishop M.D. Active Onset: 09/06/2013 Dyspnea Jerman Russell M.D. Active Onset: 10/09/2014 Obstructive sleep apnea syndrome Gabriela Lawrence MD Active Onset: 10/09/2014 Obesity Gabriela Lawrence MD Active Onset: 03/03/2015 Essential hypertension Noa Fernandez M.D. Active Onset: 08/10/2013 Cardiovascular symptoms Nia Bishop M.D. 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 , copy on file at [facility] Cigarette Use Former Cigarette Smoker 1 quit 30 years ago Pack Daily Cigarette Use Pack Years - 20 ETOH Use Drinks 1 Alcoholic Beverage Per Day Smoking Patient is a former smoker Recreational Drug Use Denies Drug Use Daily Caffeine Consumes on average 3 cups of regular coffee per day Daily Caffeine Consumes on average 1 soda per day Exercise Type/Frequency Exercises regularly General Hx Text Health Care Proxy Allergies, Adverse Reactions, Alerts Date Description Reaction Status Severity Comments 06/06/2009 Codeine GI UPSET active Moderate 08/11/2012 Labetalol headache, ED active 08/11/2012 Metoprolol headaches, ED active 02/27/2014 Metformin Nausea and Vomiting active Moderate to Severe Medications Medication Date Status Form Strength Qnty SIG Indications Ordering Provider Onetouch Ultra 07/12 Active Strips 150un test 4 Noa Blue its times Cotton, daily or M.D. as needed - e11.79 Unilet Super-Thin 02/23 Active Misc 30G 300un Test Blood Marsha G its Sugar Four Varn, N.P. Times A Day Or as Needed BD Ultra-Fine Pen 04/16 Active 360un use 4 Noa NDL [id number] /2015 its times a Cotton, day or as M.D. needed Glucocom Blood 04/05 Active Kit W/Device 1unit for use Noa Glucose Monitoring /2015 s once daily Cotton, System - meter M.D. per plan Dx E11.9, Z79.4 Pen [place] 07/08" 10/15 Active Misc 31G X 5 360un use 4 Noa mm its times a Cotton, day or as M.D. needed dx: e11.9 last seen 09/02/15 Lancets Ultra Thin 10/15 Active Misc Thin 30G 360un use to Marsha its check Varn, N.P. blood sugar four times a day or as needed - E11.9 - last seen 09/02/15 Levemir Flextouch 09/26 Active Solution 100Unit/M 60uni inject Pen-Injec L ts subcutaneo haile Fernandez usly 66 M.D. units per day or as directed by dr. lou Atorvastatin 08/17 Active Tablets 20mg 90tab take one Noa s tablet by Cotton, mouth M.D. every day Irbesartan 12/26 Active Tablets 300mg 90tab take one Noa /2013 s tablet by Cotton, mouth M.D. every day Hydrochlorothiazid 08/09 Active Tablets 25mg 90tab take one Noa s tablet by Cotton, mouth M.D. every day Doxazosin Mesylate 05/05 Active Tablets 1mg 180ta take two bs tablets by Cotton, mouth at M.D. bedtime Felodipine ER 04/12 Active Tablets 10mg 90tab take one ER 24HR s tablet by Cotton, mouth M.D. every day Novolog Flexpen 10/13 Active Solution 100Unit/M 45uni Inject 14 Pen-Injec L ts Units haile Fernandez Three M.D. Times A Day Or as Directed Aspirin 09/28 Active Tablets 81mg 30tab 1 tablet s once daily Breonna Fernandez Centrum Silver Active Tablets 1 po qd Unknown Ultra Fish Oil Active Capsules 1000mg 1 po daily Vitamin D Active Capsules 1000Unit 30cap po qd s Vitamin B12 Active Tablets 2000mcg 90tab 1 po qd s Cialis Active 1-2 by Unknown mouth one hour prior to sexual activity every 3 days Cpap Mask And Active Device night time Unknown Cpap Active Device via nasal cannula used at night Eplerenone Active Tablets 50mg 90tab 1 by mouth Noa s every Cotton, morning M.D. Cefpodoxime Active Tablets 200mg 1 by mouth Unknown Proxetil /0000 twice daily for 10 days Metoprolol Active Tablets 25mg 1 by mouth Unknown Tartrate /0000 twice a day Mucinex Active Tablets 600mg twice a Unknown /0000 ER 12HR day as needed Colcrys 02/14 Hx Tablets 0.6mg 30tab patient s not taking MD Fanny - 02/14 Tramadol HCL 09/29 Hx Tablets 50mg 30tab 1-2 s tablets by MD Shira - mouth 02/14 every hours as needed pain Doxycycline 09/29 Hx Tablets 100mg 20tab 1 tab by Jorden Hytono s mouth MD Shira - twice a 10/05 day for days Colcrys 09/12 Hx Tablets 0.6mg 30tab patient Ladarius s not taking Gretta Lantigua M.D.,FACP 02/14 True Metrix Blood 10/15 Hx Strips 300un test 4 Z79.4 Noa Glucosetest Strips its times Jim, - daily or M.D. 07/12 as needed /2017 dx E11.9, Z79.4. Test strips per plan Z00.00 Imodium A-D 01/18/2013 Hx Tablets 2mg 30tabs 1 tab orally 787.91 Noa - initially, Jim, 08/10/2013 followed by 1 M.D. tab after each loose stool as needed at residence discression Flovent HFA 10/10/2012 Hx Aerosol 44mc 1units 2 puffs twice 786.2 Philomena - g/Ac daily for 10 Misty, 08/07/2013 t days M.D., FACP Benzonatate 10/10/2012 Hx Capsules 200m 30caps take 1 capsule 786.2 Philomena - g by mouth three Misty, 01/18/2013 times a day M.D., FACP Pen [place] Mini 09/20/2012 Hx 360unit for use qid dx Noa 31GA. - s 250.00 Jim, 10/16/2015 M.D. Aldactazide 05/30/2012 Hx Tablets 25-2 90tabs 1 tab PO qd Noa - 5mg Jim, 08/09/2012 M.D. Avapro 05/03/2012 Hx Tablets 300m 90tabs 1 by mouth once Noa - g daily [place], 12/26/2012 M.D. Hydrochlorothiazi 05/03/2012 Hx Tablets 25mg 90tabs 1 po qd Noa de - [place], 05/30/2012 M.DGracie Labetalol HCL 04/07/2012 Hx Tablets 100m 180tabs 2 po bid 401.1 Noa - g [place], 05/03/2012 M.D. Metoprolol 03/21/2012 Hx Tablets ER 50mg 30tabs take 1 PO qd 401.1 Noa Succinate ER - 24HR [place], 04/07/2012 M.D. Metoprolol 02/18/2012 Hx Tablets ER 25mg 30tabs 1 po qd 401.1 Noa Succinate ER - 24HR [place], 03/21/2012 M.D. Viagra 01/13/2012 Hx Tablets 50mg 18tabs take 1 or 2 Noa - tablets once [place], 11/11/2013 daily as needed M.D. Fluticasone 04/21/2011 Hx Suspension 50mc 1bottle 1 spray each 786.2 [place] Propionate - g/Ac nostril in am Misty, 10/07/2011 t M.DGracie, FACP Azithromycin 04/21/2011 Hx Tablets 250m 6tabs two tabs day 786.2 [place] - g one, one daily Misty, 10/05/2011 till gone M.D., FACP Zithromax Z-Dani 08/19/2010 Hx Tablets 250m 1Pack two po Noa - g initially then [place], 08/29/2010 one po daily M.D. Lipitor 08/04/2010 Hx Tablets 20mg 90tabs 1 by mouth once Noa - daily [place], 08/17/2013 M.D. Cephalexin 04/02/2010 Hx Capsules 500m 28caps 1 tablet 4 682.0 Noa - g times daily for [place], 08/04/2010 7 days M.D. Losartan 12/16/2009 Hx Tablets 100- 90tabs take 1 tablet Noa Potassium/Hydroch - 25mg by mouth every [place], lorothiazide 05/03/2012 day M.D. Levemir 09/25/2009 Hx Solution 100U 23pens 52 units Noa - nit/ subcutaneously [place], 08/06/2010 ML at bedtime M.Clemente Diovan HCT 09/25/2009 Hx Tablets 320- 90tabs 1 tablet daily Noa - 25mg [place], 12/16/2009 M.DGracie Felodipine 09/25/2009 Hx Tablets ER 10mg 90tabs 1 tablet by Noa - 24HR mouth once [place], 04/12/2011 daily M.DGracie Lipitor 09/25/2009 Hx Tablets 10mg 90tabs 1 tablet every Noa - night [place], 08/04/2010 M.DGracie Asa 09/25/2009 Hx 81mg 30units 1 tablet daily Noa - [place], 09/28/2009 M.DGracie Econazole Nitrate 09/25/2009 Hx Cream 1% 45g apply to Noa - affected areas [place], 01/08/2010 bid x 2-3 wks M.DGracie Hydrocortisone 09/25/2009 Hx Cream 0.2% 30g topical twice Noa Valerate - daily to area [place], 01/08/2010 as needed M.DGracie Viagra 09/25/2009 Hx Tablets 50mg 18tabs Take 1 Or 2 Noa - Tablets Once [place], 04/12/2011 Daily as Needed M.D. Novolog Penfill Hx Solution 100U 2Box use as directed Miriam tinsley/ S. 03/07/2007 ML Breonna Browne Novolog Penfill Hx Solution 100U 10units Use as Directed Ladarius tinsley/ three times DGracie Garcia, 10/13/2009 ML daily M.DGracie,FACP Felodipine ER Hx Tablets ER 2.5m 30tabs 1 PO qd Ladarius - 24HR ginny Garcia, 09/25/2009 Breonna,FACP Metformin HCL Hx Tablets 1000 180tabs take 1 tablet Noa - mg by mouth twice [place], 08/07/2013 daily M.D. Levitra Hx Tablets Unknown - 10/07/2011 Warfarin Sodium Hx Tablets 10mg 1 po qd Unknown - 02/18/2012 Levemir Flexpen Hx Solution 100U inject 66 units Unknown - Pen-Inject nit/ under the skin 09/27/2015 ML at bedtime Eplerenone Hx Tablets 25mg 180tabs take 2 tablets Ona - by mouth every Cotton, 08/23/2016 day M.D. Cephalexin Hx Capsules 500m [facility], - ginny Yancey MD 09/23/2017 Tessalon Perles Hx Capsules 100m 1 bid as needed Unknown - g 02/12/2018 Medications Administered in Office Medication Date Status Form Strength Qnty SIG Indications Ordering Provider Celestone 3 mg Administered Injection Griselda and 3mg 017 Bitting, RPA-C Technetium TC Administered Injection Jerman DGracie 99M 016 Breonna Russell Tetrofosmin, Per Unit Dose Up To 40 Millicuries Depomedrol Administered Injection Griselda 40MG 016 Bitting, RPA-C Depomedrol Administered Injection Belkis 80MG 015 Breonna Thorpe Depomedrol Administered Injection Belkis 80MG 014 Breonna Thorpe Technetium TC Administered Injection Haylee Ching, 99M 014 PA Tetrofosmin, Per Unit Dose Up To 40 Millicuries Immunizations CPT Code Status Date Vaccine Lot # [id number] Given 02/02/2018 Fluzone High Dose 98599 Given 01/03/2018 Fluzone High Dose Q2039 Given 01/20/2016 Flu Vaccine NOS 38695 Given 01/27/2015 Fluzone High Dose Q2037 Given 10/09/2014 Fluvirin Im 3Yrs And Older 09448 Given 09/03/2014 Pneumococcal Conjugate Vaccine 13 Valent For [id number] Intramuscular Use 12332 Given 01/18/2013 Flu Vaccine Split Virus Preservative Free For [id number] Indiv 3Yr Older Q2038 Given 01/03/2012 Fluzone Vaccine [id number] 40774 Given 01/08/2010 Influenza Virus 3Yrs & Over 47596 Given 06/10/2009 Influenza Virus Vaccine, Pandemic Formulation 86618 Given 02/18/2009 Influenza Virus 3Yrs & Over 18886 Given 08/16/2007 Zoster (Zostavax) Vital Signs Date Vital Result Comment 02/22/2018 Height 70 inches 5'10" Weight 239.00 lb with shoes Heart Rate 60 /min BP Systolic Sitting 118 mmHg lue reg cuff BP Diastolic Sitting 50 mmHg lue reg cuff BP Systolic Standing 124 mmHg lue reg cuff BP Diastolic Standing 54 mmHg lue reg cuff BMI (Body Mass Index) 34.3 kg/m2 Ejection Fraction 55-60% echo. 02/07/2018 02/14/2018 Height 70 inches 5'10" Weight 239.00 lb Heart Rate 54 /min BP Systolic 138 mmHg BP Diastolic 50 mmHg Body Temperature 97.6 F O2 % BldC Oximetry 95 % BMI (Body Mass Index) 34.3 kg/m2 02/06/2018 Height 70 inches 5'10" Weight 238.00 lb Heart Rate 99 /min BP Systolic Sitting 180 mmHg HR Sounds Irregular BP Diastolic Sitting 70 mmHg HR Sounds Irregular Body Temperature 101.1 F O2 % BldC Oximetry 89 % BMI (Body Mass Index) 34.1 kg/m2 11/07/2017 Height 70 inches 5'10" Weight 240.00 lb Heart Rate 57 /min BP Systolic Sitting 145 mmHg BP Diastolic Sitting 62 mmHg O2 % BldC Oximetry 98 % BMI (Body Mass Index) 34.4 kg/m2 10/07/2017 Height 70 inches 5'10" Weight 240.00 lb BP Systolic Sitting 168 mmHg BP Diastolic Sitting 66 mmHg Respiratory Rate 16 /min Body Temperature 98.2 F Pain Level 3 BMI (Body Mass Index) 34.4 kg/m2 09/28/2017 Height 70 inches 5'10" Weight 240.00 lb Heart Rate 60 /min BP Systolic Sitting 128 mmHg BP Diastolic Sitting 58 mmHg Respiratory Rate 14 /min Body Temperature 97.1 F BMI (Body Mass Index) 34.4 kg/m2 09/27/2017 Height 70 inches 5'10" Weight 240.00 lb Heart Rate 72 /min BP Systolic Sitting 158 mmHg BP Diastolic Sitting 62 mmHg Body Temperature 97.2 F O2 % BldC Oximetry 93 % BMI (Body Mass Index) 34.4 kg/m2 09/12/2017 Height 70 inches 5'10" Weight 243.00 lb Heart Rate 70 /min BP Systolic Sitting 146 mmHg BP Diastolic Sitting 64 mmHg Body Temperature 97.4 F O2 % BldC Oximetry 96 % BMI (Body Mass Index) 34.9 kg/m2 05/02/2017 Height 70 inches 5'10" Weight 242.00 lb Heart Rate 67 /min BP Systolic 120 mmHg BP Diastolic 70 mmHg O2 % BldC Oximetry 97 % BMI (Body Mass Index) 34.7 kg/m2 02/23/2017 Height 70 inches 5'10" Weight 237.00 lb with shoes Heart Rate 58 /min BP Systolic Sitting 148 mmHg Rue lg cuff BP Diastolic Sitting 60 mmHg Rue lg cuff BP Systolic Standing 146 mmHg Rue lg cuff BP Diastolic Standing 60 mmHg Rue lg cuff Respiratory Rate 16 /min BMI (Body Mass Index) 34.0 kg/m2 Ejection Fraction 55-60% date 10/21/15 12/15/2016 Height 70 inches 5'10" Weight 238.00 lb Heart Rate 60 /min BP Systolic Sitting 150 mmHg BP Diastolic Sitting 60 mmHg Respiratory Rate 14 /min Body Temperature 97.5 F O2 % BldC Oximetry 97 % BMI (Body Mass Index) 34.1 kg/m2 11/04/2016 Height 70 inches 5'10" Weight 234.00 lb Heart Rate 60 /min BP Systolic Sitting 140 mmHg BP Diastolic Sitting 60 mmHg Respiratory Rate 16 /min Body Temperature 97.6 F O2 % BldC Oximetry 98 % BMI (Body Mass Index) 33.6 kg/m2 08/23/2016 Weight 239.00 lb Heart Rate 89 /min BP Systolic Sitting 124 mmHg BP Diastolic Sitting 54 mmHg O2 % BldC Oximetry 99 % 05/05/2016 Height 70 inches 5'10" Weight 228.00 lb Pain Level 2 BMI (Body Mass Index) 32.7 kg/m2 04/21/2016 Height 70 inches 5'10" Weight 228.00 lb per pt Heart Rate 68 /min BP Systolic Sitting 130 mmHg BP Diastolic Sitting 72 mmHg Respiratory Rate 14 /min O2 % BldC Oximetry 97 % BMI (Body Mass Index) 32.7 kg/m2 03/25/2016 Height 70.5 inches 5'10.50" Weight 238.00 lb Heart Rate 68 /min BP Systolic 122 mmHg BP Diastolic 58 mmHg Body Temperature 97.5 F O2 % BldC Oximetry 98 % BMI (Body Mass Index) 33.7 kg/m2 03/04/2016 Weight 236.00 lb Heart Rate 60 /min BP Systolic 160 mmHg BP Diastolic 70 mmHg BP Systolic Sitting 126 mmHg BP Diastolic Sitting 58 mmHg O2 % BldC Oximetry 98 % 01/30/2016 Height 70.5 inches 5'10.50" Weight 234.00 lb w/ shoes Heart Rate 54 /min BP Systolic Sitting 150 mmHg Lue, lg cuff BP Diastolic Sitting 62 mmHg Lue, lg cuff BP Systolic Standing 144 mmHg Lue BP Diastolic Standing 66 mmHg Lue Respiratory Rate 16 /min BMI (Body Mass Index) 33.1 kg/m2 Ejection Fraction 55-60% as of 10/21/15 echo 11/17/2015 Height 70.5 inches 5'10.50" Weight 235.00 lb w/o shoes Heart Rate 60 /min BP Systolic Sitting 110 mmHg Ra lg cuff BP Diastolic Sitting 54 mmHg Ra lg cuff BP Systolic Standing 138 mmHg Ra lg cuff BP Diastolic Standing 52 mmHg Ra lg cuff BP Systolic Recheck 132 mmHg Ra lg cuff DB Ccma BP Diastolic Recheck 56 mmHg Ra lg cuff DB Ccma BMI (Body Mass Index) 33.2 kg/m2 Ejection Fraction 55-60% date 10/21/15 ECHO 10/24/2015 Weight 238.00 lb Heart Rate 60 /min BP Systolic Sitting 124 mmHg Ra lg cuff BP Diastolic Sitting 50 mmHg Ra lg cuff BP Systolic Standing 120 mmHg Ra lg cuff BP Diastolic Standing 54 mmHg Ra lg cuff 09/26/2015 Height 70 inches 5'10" Weight 238.00 lb with shoes Heart Rate 66 /min BP Systolic Sitting 152 mmHg Ra lrg cuff BP Diastolic Sitting 62 mmHg Ra lrg cuff BP Systolic Standing 148 mmHg Ra lrg cuff BP Diastolic Standing 58 mmHg Ra lrg cuff Respiratory Rate 14 /min BMI (Body Mass Index) 34.1 kg/m2 Ejection Fraction 55-60% 08/14/13 09/25/2015 Height 70 inches 5'10" Weight 236.00 lb Heart Rate 61 /min BP Systolic 155 mmHg BP Diastolic 60 mmHg BMI (Body Mass Index) 33.9 kg/m2 09/02/2015 Height 69.75 inches 5'9.75" Weight 240.50 lb Heart Rate 58 /min BP Systolic Sitting 147 mmHg BP Diastolic Sitting 59 mmHg Body Temperature 97.1 F O2 % BldC Oximetry 97 % BMI (Body Mass Index) 34.8 kg/m2 03/03/2015 Height 70 inches 5'10" Weight 237.00 lb Heart Rate 70 /min BP Systolic Sitting 140 mmHg BP Diastolic Sitting 82 mmHg Respiratory Rate 15 /min Body Temperature 98.6 F O2 % BldC Oximetry 97 % BMI (Body Mass Index) 34.0 kg/m2 02/06/2015 Height 70 inches 5'10" Weight 236.00 lb Pain Level 8 BMI (Body Mass Index) 33.9 kg/m2 01/09/2015 Heart Rate 58 /min BP Systolic 134 mmHg BP Diastolic 50 mmHg Respiratory Rate 14 /min O2 % BldC Oximetry 97 % 12/13/2014 Weight 236.00 lb Heart Rate 54 /min BP Systolic Sitting 148 mmHg BP Diastolic Sitting 59 mmHg Body Temperature 95.8 F 10/11/2014 Height 70 inches 5'10" Weight 233.50 lb w/o shoes Heart Rate 78 /min reg BP Systolic Sitting 134 mmHg Rue, reg cuff BP Diastolic Sitting 68 mmHg Rue, reg cuff BP Systolic Standing 140 mmHg Rue BP Diastolic Standing 72 mmHg Rue Respiratory Rate 18 /min BMI (Body Mass Index) 33.5 kg/m2 Ejection Fraction 55-60% as of 08/14/13 echo 10/09/2014 Height 70 inches 5'10" Weight 234.25 lb Heart Rate 74 /min BP Systolic Sitting 140 mmHg BP Diastolic Sitting 72 mmHg Respiratory Rate 18 /min Body Temperature 98.5 F O2 % BldC Oximetry 98 % BMI (Body Mass Index) 33.6 kg/m2 Neck Circumference in inches 18.5 10/09/2014 Height 70.5 inches 5'10.50" Weight 232.00 lb Heart Rate 60 /min BP Systolic 130 mmHg BP Diastolic 58 mmHg Body Temperature 98.2 F BMI (Body Mass Index) 32.8 kg/m2 08/22/2014 Height 70.5 inches 5'10.50" Weight 234.50 lb Heart Rate 62 /min BP Systolic Sitting 130 mmHg BP Diastolic Sitting 60 mmHg BMI (Body Mass Index) 33.2 kg/m2 08/07/2014 Height 71 inches 5'11" Weight 234.12 lb Heart Rate 74 /min BP Systolic Sitting 136 mmHg BP Diastolic Sitting 60 mmHg O2 % BldC Oximetry 97 % BMI (Body Mass Index) 32.7 kg/m2 02/27/2014 Height 71 inches 5'11" Weight 233.00 lb Heart Rate 60 /min BP Systolic Sitting 140 mmHg BP Diastolic Sitting 60 mmHg Body Temperature 98.0 F BMI (Body Mass Index) 32.5 kg/m2 01/17/2014 Height 71 inches 5'11" Weight 227.00 lb Heart Rate 61 /min BP Systolic 136 mmHg BP Diastolic 77 mmHg BMI (Body Mass Index) 31.7 kg/m2 09/06/2013 Height 70.25 inches 5'10.25" Weight 233.00 lb Heart Rate 68 /min BP Systolic Sitting 132 mmHg Ra large cuff BP Diastolic Sitting 64 mmHg Ra large cuff BP Systolic Standing 132 mmHg Ra BP Diastolic Standing 64 mmHg Ra Respiratory Rate 16 /min BMI (Body Mass Index) 33.2 kg/m2 08/17/2013 Height 70.25 inches 5'10.25" Weight 232.25 lb Heart Rate 64 /min BP Systolic 142 mmHg BP Diastolic 60 mmHg Respiratory Rate 16 /min Body Temperature 97.5 F BMI (Body Mass Index) 33.1 kg/m2 08/10/2013 Height 71 inches 5'11" Weight 233.00 lb Heart Rate 84 /min BP Systolic Sitting 130 mmHg LA LG cuff BP Diastolic Sitting 62 mmHg LA LG cuff BP Systolic Standing 130 mmHg BP Diastolic Standing 60 mmHg Respiratory Rate 16 /min BMI (Body Mass Index) 32.5 kg/m2 01/18/2013 Weight 229.00 lb Heart Rate 70 /min BP Systolic Sitting 122 mmHg BP Diastolic Sitting 64 mmHg Body Temperature 6.8 F 10/10/2012 Weight 227.00 lb Heart Rate 64 /min BP Systolic Sitting 124 mmHg BP Diastolic Sitting 78 mmHg Body Temperature 96.3 F O2 % BldC Oximetry 97 % 08/11/2012 Weight 231.00 lb Heart Rate 70 /min BP Systolic Sitting 134 mmHg BP Diastolic Sitting 80 mmHg 05/02/2012 Height 70 inches 5'10" Weight 232.00 lb Heart Rate 72 /min BP Systolic Sitting 162 mmHg home machine said 170/81 BP Diastolic Sitting 70 mmHg home machine said 170/81 BMI (Body Mass Index) 33.3 kg/m2 04/07/2012 Height 70 inches 5'10" Weight 231.50 lb Heart Rate 56 /min BP Systolic Sitting 138 mmHg BP Diastolic Sitting 60 mmHg BMI (Body Mass Index) 33.2 kg/m2 03/21/2012 Height 70 inches 5'10" Weight 230.00 lb Heart Rate 72 /min BP Systolic Sitting 132 mmHg BP Diastolic Sitting 80 mmHg BMI (Body Mass Index) 33.0 kg/m2 02/28/2012 Height 70 inches 5'10" Weight 230.00 lb Heart Rate 68 /min BP Systolic Sitting 150 mmHg BP Diastolic Sitting 62 mmHg Body Temperature 97.8 F BMI (Body Mass Index) 33.0 kg/m2 02/18/2012 Height 70 inches 5'10" Weight 227.00 lb Heart Rate 72 /min BP Systolic Sitting 134 mmHg BP Diastolic Sitting 80 mmHg BMI (Body Mass Index) 32.6 kg/m2 01/03/2012 Height 70 inches 5'10" Heart Rate 64 /min BP Systolic Sitting 138 mmHg BP Diastolic Sitting 54 mmHg 11/18/2011 Height 70 inches 5'10" Weight 228.00 lb Heart Rate 74 /min BP Systolic Sitting 130 mmHg 148/60 pt machine BP Diastolic Sitting 60 mmHg 148/60 pt machine BMI (Body Mass Index) 32.7 kg/m2 10/07/2011 Height 70 inches 5'10" Weight 225.00 lb Heart Rate 72 /min BP Systolic Sitting 128 mmHg BP Diastolic Sitting 76 mmHg BMI (Body Mass Index) 32.3 kg/m2 04/21/2011 Height 70 inches 5'10" Weight 231.00 lb Heart Rate 72 /min BP Systolic Sitting 116 mmHg BP Diastolic Sitting 68 mmHg Body Temperature 98.5 F BMI (Body Mass Index) 33.1 kg/m2 04/12/2011 Height 70 inches 5'10" Weight 228.75 lb Heart Rate 72 /min BP Systolic Sitting 138 mmHg L BP Diastolic Sitting 74 mmHg L BMI (Body Mass Index) 32.8 kg/m2 08/19/2010 Weight 229.00 lb Heart Rate 78 /min BP Systolic Sitting 150 mmHg BP Diastolic Sitting 70 mmHg Body Temperature 98.7 F 08/04/2010 Weight 229.00 lb Heart Rate 60 /min BP Systolic Sitting 128 mmHg BP Diastolic Sitting 70 mmHg 04/02/2010 Weight 231.75 lb Heart Rate 78 /min BP Systolic 142 mmHg BP Diastolic 70 mmHg 01/08/2010 Weight 229.00 lb Heart Rate 60 /min BP Systolic 122 mmHg BP Diastolic 68 mmHg 09/29/2009 Height 70 inches 5'10" Weight 224.75 lb Heart Rate 78 /min BP Systolic 138 mmHg BP Diastolic 60 mmHg BMI (Body Mass Index) 32.2 kg/m2 Results Test Date Test Result H/L Range Note Laboratory test finding 02/06/2018 Procalcitonin 0.8 ng/mL High <0.6 1 Blood Culture SEE RESULT BELOW 2 Sputum Culture & 02/06/2018 Sputum Culture SEE RESULT BELOW 3 Sensitiv Gram Stain CBC Auto Diff 02/06/2018 White Blood Count 11.7 10^3/uL High 3.5-10.8 Red Blood Count 4.11 10^6/uL 4.00-5.40 Hemoglobin 13.2 g/dL Low 14.0-18.0 Hematocrit 39 % Low 42-52 Mean Corpuscular Volume 94 fL 80-94 Mean Corpuscular Hemoglobin 32 pg High 27-31 Mean Corpuscular HGB Conc 34 g/dL 31-36 Red Cell Distribution Width 14 % 10.5-15 Platelet Count 170 10^3/uL 150-450 Mean Platelet Volume 9.8 um3 7.4-10.4 Abs Neutrophils 10.1 10^3/uL High 1.5-7.7 Abs Lymphocytes 0.5 10^3/uL Low 1.0-4.8 Abs Monocytes 1.0 10^3/uL High 0-0.8 Abs Eosinophils 0 10^3/uL 0-0.6 Abs Basophils 0 10^3/uL 0-0.2 Abs Nucleated RBC 0 10^3/uL Granulocyte % 86.6 % High 38-83 Lymphocyte % 4.2 % Low 25-47 Monocyte % 9.0 % High 0-7 Eosinophil % 0 % 0-6 Basophil % 0.2 % 0-2 Nucleated Red Blood Cells % 0 Comp Metabolic Panel 02/06/2018 Sodium 129 mmol/L Low 135-145 Potassium 3.9 mmol/L 3.5-5.0 Chloride 94 mmol/L Low 101-111 Co2 Carbon Dioxide 25 mmol/L 22-32 Anion Gap 10 mmol/L 2-11 Glucose 116 mg/dL High 70-100 Blood Urea Nitrogen 22 mg/dL 6-24 Creatinine 1.12 mg/dL 0.67-1.17 BUN/Creatinine Ratio 19.6 8-20 Calcium 8.9 mg/dL 8.6-10.3 Total Protein 6.8 g/dL 6.4-8.9 Albumin 4.0 g/dL 3.2-5.2 Globulin 2.8 g/dL 2-4 Albumin/Globulin Ratio 1.4 1-3 Total Bilirubin 2.20 mg/dL High 0.2-1.0 Alkaline Phosphatase 78 U/L 34-104 Alt 15 U/L 7-52 Ast 22 U/L 13-39 Egfr Non- 63.2 >60 Egfr 76.5 >60 4 Laboratory test finding 02/06/2018 Lactic Acid 0.9 mmol/L 0.5-2.0 5 C Reactive Protein 139.24 mg/L High <8.01 Troponin-I (TnI) 0.06 ng/mL High <0.04 6 Laboratory test 02/05/2018 Rapid Strep A SEE RESULT BELOW 7 finding Rapid Influenza A & B 02/05/2018 Influenza A Molecular NEGATIVE Negative 8 Molecular Influenza B Molecular NEGATIVE Negative Laboratory test 02/05/2018 Rapid Influenza A B SEE RESULT BELOW 9 finding Antigen Laboratory test 02/05/2018 Rapid Strep Negative Negative 10 finding Molecular Laboratory test 01/05/2018 Surgical Pathology SEE RESULT BELOW 11, 12 finding Laboratory test 09/29/2017 Surgical Pathology SEE RESULT BELOW 13, 14 finding Wound Culture/Sensi 09/29/2017 Wound/Misc SEE RESULT BELOW 15 Culture-Gram Stain Laboratory test 09/29/2017 Anaerobic Culture SEE RESULT BELOW 16 finding CBC Auto Diff 09/23/2017 White Blood Count 4.8 10^3/uL 3.5-10.8 Red Blood Count 4.03 10^6/uL 4.0-5.4 Hemoglobin 12.7 g/dL Low 14.0-18.0 Hematocrit 38 % Low 42-52 Mean Corpuscular Volume 94 fL 80-94 Mean Corpuscular Hemoglobin 32 pg High 27-31 Mean Corpuscular HGB Conc 33 g/dL 31-36 Red Cell Distribution Width 13 % 10.5-15 Platelet Count 207 10^3/uL 150-450 Mean Platelet Volume 8.9 um3 7.4-10.4 Abs Neutrophils 3.2 10^3/uL 1.5-7.7 Abs Lymphocytes 0.8 10^3/uL Low 1.0-4.8 Abs Monocytes 0.6 10^3/uL 0-0.8 Abs Eosinophils 0.1 10^3/uL 0-0.6 Abs Basophils 0.1 10^3/uL 0-0.2 Abs Nucleated RBC 0 10^3/uL Granulocyte % 66.7 % 38-83 Lymphocyte % 17.4 % Low 25-47 Monocyte % 12.5 % High 0-7 Eosinophil % 2.0 % 0-6 Basophil % 1.4 % 0-2 Nucleated Red Blood Cells % 0 Laboratory test finding 09/23/2017 C Reactive Protein 1.50 mg/L < 5.00 17 Erythrocyte Sed Rate 14 mm/Hr 0-40 Laboratory test finding 09/12/2017 Uric Acid 6.8 mg/dL 4.4-7.6 C Reactive Protein 54.95 mg/L High < 5.00 18 Erythrocyte Sed Rate 23 mm/Hr 0-40 Lyme Disease Serology Positive Negative 19 Rheumatoid Factor < 10 IU/mL <15 Lyme Western Blot 09/12/2017 Lyme Disease IgG Ab WB Negative Negative Lyme Disease IgG Bands Present p93,p39 kDa Lyme Disease IgM Ab WB Negative Negative Lyme Disease IgM Bands Present p23 kDa Lyme Disease Interpretation See Comment 20 Laboratory test finding 09/12/2017 Hemoglobin A1c 7.9 High 5-7 Lipid Profile (Trig/Chol/HDL) 09/01/2017 Triglycerides 102 mg/dL 21 Cholesterol 133 mg/dL 22 HDL Cholesterol 54.7 mg/dL 23 LDL Cholesterol 58 mg/dL 24 Laboratory test finding 09/01/2017 PSA Diagnostic 0.596 ng/mL 0-4.0 25 Comp Metabolic Panel 09/01/2017 Sodium 138 mmol/L Low 139-145 Potassium 4.2 mmol/L 3.5-5.0 Chloride 102 mmol/L 101-111 Co2 Carbon Dioxide 30 mmol/L 22-32 Anion Gap 6 mmol/L 2-11 Glucose 127 mg/dL High 70-100 Blood Urea Nitrogen 23 mg/dL 6-24 Creatinine 1.09 mg/dL 0.67-1.17 BUN/Creatinine Ratio 21.1 High 8-20 Calcium 9.5 mg/dL 8.6-10.3 Total Protein 6.5 g/dL 6.4-8.9 Albumin 4.0 g/dL 3.2-5.2 Globulin 2.5 g/dL 2-4 Albumin/Globulin Ratio 1.6 1-3 Total Bilirubin 1.60 mg/dL High 0.2-1.0 Alkaline Phosphatase 84 U/L 34-104 Alt 19 U/L 7-52 Ast 19 U/L 13-39 Egfr Non- 65.4 >60 Egfr 84.1 >60 26 Urine Microalbumin Random 09/01/2017 Ur Microalbumin (mg/L) 187.4 mg/L Urine Creatinine 126.02 mg/dL Urine Microalbumin/Creatinine 148.7 ug/mg High <31 Liver Function Panel 09/01/2017 Direct Bilirubin 0.30 mg/dL High 0.03- 0.18 Indirect Bilirubin 1.3 mg/dL High 0.3-1.0 Laboratory test 09/01/2017 Vitamin B12 554 pg/mL 180-914 27 finding Laboratory test 12/15/2016 D Dimer Quantitative < 200 ng/mL Less Than 230 28 finding Basic Metabolic Panel 12/15/2016 Sodium 135 mmol/L 133-145 Potassium 4.3 mmol/L 3.5-5.0 Chloride 100 mmol/L Low 101-111 Co2 Carbon Dioxide 31 mmol/L 22-32 Anion Gap 4 mmol/L 2-11 Glucose 140 mg/dL High 70-100 Blood Urea Nitrogen 26 mg/dL High 6-24 Creatinine 1.06 mg/dL 0.67-1.17 BUN/Creatinine Ratio 24.5 High 8-20 Calcium 9.4 mg/dL 8.6-10.3 Egfr Non- 67.7 >60 Egfr 87.1 >60 29 Lipid Profile (Trig/Chol/HDL) 09/16/2016 Triglycerides 62 mg/dL 30 Cholesterol 116 mg/dL 31 HDL Cholesterol 51.2 mg/dL 32 LDL Cholesterol 52 mg/dL 33 Comp Metabolic Panel 09/16/2016 Sodium 136 mmol/L 133-145 Potassium 4.2 mmol/L 3.5-5.0 Chloride 101 mmol/L 101-111 Co2 Carbon Dioxide 28 mmol/L 22-32 Anion Gap 7 mmol/L 2-11 Glucose 80 mg/dL 70-100 Blood Urea Nitrogen 23 mg/dL 6-24 Creatinine 1.09 mg/dL 0.67-1.17 BUN/Creatinine Ratio 21.1 High 8-20 Calcium 9.3 mg/dL 8.6-10.3 Total Protein 6.5 g/dL 6.4-8.9 Albumin 3.9 g/dL 3.2-5.2 Globulin 2.6 g/dL 2-4 Albumin/Globulin Ratio 1.5 1-3 Total Bilirubin 1.40 mg/dL High 0.2-1.0 Alkaline Phosphatase 78 U/L 34-104 Alt 16 U/L 7-52 Ast 18 U/L 13-39 Egfr Non- 65.6 >60 Egfr 84.4 >60 34 Urine Microalbumin Random 08/23/2016 Urine Creatinine 96.55 mg/dL Ur Microalbumin (mg/L) 52.6 mg/L Urine Microalbumin/Creatinine 54.4 ug/mg High <31 Basic Metabolic Panel 03/16/2016 Sodium 132 mmol/L Low 133-145 Potassium 4.8 mmol/L 3.5-5.0 Chloride 98 mmol/L Low 101-111 Co2 Carbon Dioxide 30 mmol/L 22-32 Anion Gap 4 mmol/L 2-11 Glucose 146 mg/dL High 70-100 Blood Urea Nitrogen 21 mg/dL 6-24 Creatinine 1.00 mg/dL 0.67-1.17 BUN/Creatinine Ratio 21.0 High 8-20 Calcium 9.3 mg/dL 8.6-10.3 Egfr Non- 72.5 >60 Egfr 93.2 >60 35 CBC Auto Diff 01/15/2016 White Blood Count 8.0 10^3/uL 3.5-10.8 Red Blood Count 4.19 10^6/uL 4.0-5.4 Hemoglobin 13.1 g/dL Low 14.0-18.0 Hematocrit 39 % Low 42-52 Mean Corpuscular Volume 92 fL 80-94 Mean Corpuscular Hemoglobin 31 pg 27-31 Mean Corpuscular HGB Conc 34 g/dL 31-36 Red Cell Distribution Width 14 % 10.5-15 Platelet Count 177 10^3/uL 150-450 Mean Platelet Volume 10 um3 7.4-10.4 Abs Neutrophils 5.9 10^3/uL 1.5-7.7 Abs Lymphocytes 1.1 10^3/uL 1.0-4.8 Abs Monocytes 0.8 10^3/uL 0-0.8 Abs Eosinophils 0.1 10^3/uL 0-0.6 Abs Basophils 0.1 10^3/uL 0-0.2 Abs Nucleated RBC 0.01 10^3/uL Granulocyte % 73.3 % 38-83 Lymphocyte % 13.5 % Low 25-47 Monocyte % 10.6 % High 1-9 Eosinophil % 1.6 % 0-6 Basophil % 1.0 % 0-2 Nucleated Red Blood Cells % 0.1 Comp Metabolic Panel 01/15/2016 Sodium 134 mmol/L 133-145 Potassium 4.2 mmol/L 3.5-5.0 Chloride 96 mmol/L Low 101-111 Co2 Carbon Dioxide 30 mmol/L 22-32 Anion Gap 8 mmol/L 2-11 Glucose 181 mg/dL High 70-100 Blood Urea Nitrogen 16 mg/dL 6-24 Creatinine 1.05 mg/dL 0.67-1.17 BUN/Creatinine Ratio 15.2 8-20 Calcium 9.4 mg/dL 8.6-10.3 Total Protein 6.5 g/dL 6.4-8.9 Albumin 4.1 g/dL 3.2-5.2 Globulin 2.4 g/dL 2-4 Albumin/Globulin Ratio 1.7 1-3 Total Bilirubin 1.90 mg/dL High 0.2-1.0 Alkaline Phosphatase 91 U/L 34-104 Alt 20 U/L 7-52 Ast 22 U/L 13-39 Egfr Non- 68.5 >60 Egfr 88.1 >60 36 Laboratory test finding 01/15/2016 Uric Acid 6.5 mg/dL 4.4-7.6 Arterial Blood Gas 11/10/2015 PH Arterial 7.41 7.35-7.45 37 Pco2 Arterial 43 mmHg 35-45 37 Po2 Arterial 79 mmHg Low 80-100 37 O2 Saturation Arterial 97.6 % 95-98 37 Base Excess Arterial 2.3 High -2.0-2.0 37, 38 Hco3 Arterial 26.7 mmol/L 19-31 37 Arterial Blood Gas 11/10/2015 PH Arterial 7.38 7.35-7.45 Pco2 Arterial 50 mmHg High 35-45 O2 Saturation Arterial 76.7 % Low 95-98 Base Excess Arterial 3.6 High -2.0-2.0 39 Hco3 Arterial 27.2 mmol/L 19-31 Po2 Arterial 43 mmHg Low 80-100 Venous Blood Gas 11/10/2015 Venous Blood pH 7.38 7.33-7.43 Venous Pco2 50 mmHg 41-51 Venous Po2 43 mmHg 35-45 Venous O2 Saturation 76.7 % 70-80 Venous Blood Base Excess 3.6 0-4 40 Venous Bicarbonate Hco3 27.2 mmol/L 24- Venous Blood Gas 11/10/2015 Venous Blood pH 7.37 7.33-7.43 Venous Pco2 48 mmHg 41-51 Venous Po2 41 mmHg 35-45 Venous O2 Saturation 77.2 % 70-80 Venous Blood Base Excess 1.8 0-4 41 Venous Bicarbonate Hco3 25.8 mmol/L 24- Pre Cath Panel 10/30/2015 Partial Thrombo Time PTT 30.8 seconds 26.0- 36.3 CBC Auto Diff 10/30/2015 White Blood Count 3.5 10^3/uL 3.5-10.8 Red Blood Count 4.06 10^6/uL 4.0-5.4 Hemoglobin 12.5 g/dL Low 14.0-18.0 Hematocrit 38 % Low 42-52 Mean Corpuscular Volume 93 fL 80-94 Mean Corpuscular Hemoglobin 31 pg 27-31 Mean Corpuscular HGB Conc 33 g/dL 31-36 Red Cell Distribution Width 14 % 10.5-15 Platelet Count 177 10^3/uL 150-450 Mean Platelet Volume 9 um3 7.4-10.4 Abs Neutrophils 2.3 10^3/uL 1.5-7.7 Abs Lymphocytes 0.6 10^3/uL Low 1.0-4.8 Abs Monocytes 0.5 10^3/uL 0-0.8 Abs Eosinophils 0.1 10^3/uL 0-0.6 Abs Basophils 0 10^3/uL 0-0.2 Abs Nucleated RBC 0 10^3/uL Granulocyte % 65.3 % 38-83 Lymphocyte % 17.6 % Low 25-47 Monocyte % 13.6 % High 1-9 Eosinophil % 2.4 % 0-6 Basophil % 1.1 % 0-2 Nucleated Red Blood Cells % 0 Inr/Protime 10/30/2015 Inr 0.95 0.89-1.11 Basic Metabolic Panel 10/30/2015 Sodium 133 mmol/L 133-145 Potassium 4.4 mmol/L 3.5-5.0 Chloride 99 mmol/L Low 101-111 Co2 Carbon Dioxide 29 mmol/L 22-32 Anion Gap 5 mmol/L 2-11 Glucose 111 mg/dL High 70-100 Blood Urea Nitrogen 20 mg/dL 6-24 Creatinine 1.05 mg/dL 0.67-1.17 BUN/Creatinine Ratio 19.0 8-20 Calcium 9.2 mg/dL 8.6-10.3 Egfr Non- 68.7 >60 Egfr 88.3 >60 42 Iron & Iron Binding Capacity 10/30/2015 Iron 87 g/dL 50-212 Unsaturated Iron Binding 262 g/dL Total Iron Binding Capacity 349 g/dL 250-450 % Iron Saturation 25 % 15-55 Protein Electrophoresis 10/30/2015 Total Protein(Pep) 6.2 g/dL 6.3 - 7.9 Albumin 3.3 g/dL 3.4-4.7 Alpha-1 Globulin 0.2 g/dL 0.1-0.3 Alpha-2 Globulin 0.8 g/dL 0.6-1.0 Beta Globulin 0.8 g/dL 0.7-1.2 Gamma Globulin 1.0 g/dL 0.6-1.6 Albumin/Globulin Ratio 1.15 Impression See Comment 43 Order 10/23/2015 Stress Test, Exercise Nuclear <pending> Lipid Profile 08/26/2015 Triglycerides 100 mg/dL 44 (Trig/Chol/HDL) Cholesterol 126 mg/dL 45 HDL Cholesterol 51.1 mg/dL 46 LDL Cholesterol 55 mg/dL 47 Comp Metabolic Panel 08/26/2015 Sodium 135 mmol/L 133-145 Potassium 4.1 mmol/L 3.5-5.0 Chloride 100 mmol/L Low 101-111 Co2 Carbon Dioxide 29 mmol/L 22-32 Anion Gap 6 mmol/L 2-11 Glucose 110 mg/dL High 70-100 Blood Urea Nitrogen 17 mg/dL 6-24 Creatinine 1.04 mg/dL 0.67-1.17 BUN/Creatinine Ratio 16.3 8-20 Calcium 9.3 mg/dL 8.6-10.3 Total Protein 6.5 g/dL 6.4-8.9 Albumin 4.0 g/dL 3.2-5.2 Globulin 2.5 g/dL 2-4 Albumin/Globulin Ratio 1.6 1-3 Total Bilirubin 1.40 mg/dL High 0.2-1.0 Alkaline Phosphatase 78 U/L 34-104 Alt 16 U/L 7-52 Ast 17 U/L 13-39 Egfr Non- 69.4 >60 Egfr 89.3 >60 48 Urine Microalbumin Random 08/26/2015 Ur Microalbumin (mg/L) 89.0 mg/L Urine Creatinine 151.94 mg/dL Urine Microalbumin/Creatinine 58.5 ug/mg High <31 Laboratory test finding 08/26/2015 TSH (Thyroid Stim Horm) 1.79 ?IU/mL 0.34-5.60 49 Laboratory test finding 08/26/2015 Vitamin B12 344 pg/mL 180-914 50 CBC No Diff 08/26/2015 White Blood Count 5.2 10^3/uL 3.5-10.8 Red Blood Count 4.03 10^6/uL 4.0-5.4 Hemoglobin 12.7 g/dL Low 14.0-18.0 Hematocrit 38 % Low 42-52 Mean Corpuscular Volume 94 fL 80-94 Mean Corpuscular Hemoglobin 32 pg High 27-31 Mean Corpuscular HGB Conc 34 g/dL 31-36 Red Cell Distribution Width 14 % 10.5-15 Platelet Count 182 10^3/uL 150-450 Mean Platelet Volume 9 um3 7.4-10.4 CBC Auto Diff 03/06/2015 White Blood Count 4.9 10^3/uL 4.8-10.8 51 Red Blood Count 4.30 10^6/uL 4.0-5.4 51 Hemoglobin 13.8 g/dL Low 14.0-18.0 51 Hematocrit 41 % Low 42-52 51 Mean Corpuscular Volume 95 fL High 80-94 51 Mean Corpuscular Hemoglobin 32 pg High 27-31 51 Mean Corpuscular HGB Conc 34 g/dL 31-36 51 Red Cell Distribution Width 14 % 10.5-15 51 Platelet Count 189 10^3/uL 150-450 51 Mean Platelet Volume 8 um3 7.4-10.4 51 Abs Neutrophils 3.2 10^3/uL 1.5-7.7 51 Abs Lymphocytes 0.9 10^3/uL Low 1.0-4.8 51 Abs Monocytes 0.6 10^3/uL 0-0.8 51 Abs Eosinophils 0.1 10^3/uL 0-0.6 51 Abs Basophils 0 10^3/uL 0-0.2 51 Abs Nucleated RBC 0 10^3/uL 51 Granulocyte % 65.4 % 38-83 51 Lymphocyte % 18.3 % Low 25-47 51 Monocyte % 12.5 % High 1-9 51 Eosinophil % 2.8 % 0-6 51 Basophil % 1.0 % 0-2 51 Nucleated Red Blood Cells % 0.1 51 Comp Metabolic Panel 03/06/2015 Sodium 135 mmol/L 133-145 51 Potassium 4.3 mmol/L 3.5-5.0 51 Chloride 99 mmol/L Low 101-111 51 Co2 Carbon Dioxide 31 mmol/L 22-32 51 Anion Gap 5 mmol/L 2-11 51 Glucose 72 mg/dL 70-100 51 Blood Urea Nitrogen 15 mg/dL 6-24 51 Creatinine 1.03 mg/dL 0.67-1.17 51 BUN/Creatinine Ratio 14.6 8-20 51 Calcium 9.4 mg/dL 8.6-10.3 51 Total Protein 6.3 g/dL Low 6.4-8.9 51 Albumin 4.1 g/dL 3.2-5.2 51 Globulin 2.2 g/dL 2-4 51 Albumin/Globulin Ratio 1.9 1-3 51 Total Bilirubin 1.40 mg/dL High 0.2-1.0 51 Alkaline Phosphatase 82 U/L 34-104 51 Alt 17 U/L 7-52 51 Ast 14 U/L 13-39 51 Egfr Non- 70.2 >60 51 Egfr 90.3 >60 51, 52 Urine Microalbumin Random 12/17/2014 Ur Microalbumin (mg/L) 24.0 mg/L 53 Urine Creatinine 121.61 mg/dL 53 Urine Microalbumin/Creatinine 19.7 ug/mg <31 53 Comp Metabolic Panel 12/17/2014 Sodium 136 mmol/L 133-145 53 Potassium 4.6 mmol/L 3.5-5.0 53 Chloride 99 mmol/L Low 101-111 53 Co2 Carbon Dioxide 32 mmol/L 22-32 53 Anion Gap 5 mmol/L 2-11 53 Glucose 119 mg/dL High 70-100 53 Blood Urea Nitrogen 19 mg/dL 6-24 53 Creatinine 1.02 mg/dL 0.67-1.17 53 BUN/Creatinine Ratio 18.6 8-20 53 Calcium 9.3 mg/dL 8.6-10.3 53 Total Protein 6.3 g/dL Low 6.4-8.9 53 Albumin 4.1 g/dL 3.2-5.2 53 Globulin 2.2 g/dL 2-4 53 Albumin/Globulin Ratio 1.9 1-3 53 Total Bilirubin 1.30 mg/dL High 0.2-1.0 53 Alkaline Phosphatase 72 U/L 34-104 53 Alt 17 U/L 7-52 53 Ast 15 U/L 13-39 53 Egfr Non- 71.2 >60 53 Egfr 91.6 >60 53, 54 CBC Auto Diff 12/17/2014 White Blood Count 3.5 10^3/uL Low 4.8-10.8 53 Red Blood Count 4.26 10^6/uL 4.0-5.4 53 Hemoglobin 13.5 g/dL Low 14.0-18.0 53 Hematocrit 41 % Low 42-52 53 Mean Corpuscular Volume 96 fL High 80-94 53 Mean Corpuscular Hemoglobin 32 pg High 27-31 53 Mean Corpuscular HGB Conc 33 g/dL 31-36 53 Red Cell Distribution Width 13 % 10.5-15 53 Platelet Count 165 10^3/uL 150-450 53 Mean Platelet Volume 9 um3 7.4-10.4 53 Abs Neutrophils 2.0 10^3/uL 1.5-7.7 53 Abs Lymphocytes 0.8 10^3/uL Low 1.0-4.8 53 Abs Monocytes 0.5 10^3/uL 0-0.8 53 Abs Eosinophils 0.1 10^3/uL 0-0.6 53 Abs Basophils 0 10^3/uL 0-0.2 53 Abs Nucleated RBC 0 10^3/uL 53 Granulocyte % 58.3 % 38-83 53 Lymphocyte % 22.9 % Low 25-47 53 Monocyte % 14.1 % High 1-9 53 Eosinophil % 3.8 % 0-6 53 Basophil % 0.9 % 0-2 53 Nucleated Red Blood Cells % 0.1 53 Lipid Profile (Trig/Chol/HDL) 12/17/2014 Triglycerides 83 mg/dL 53, 55 Cholesterol 120 mg/dL 53, 56 HDL Cholesterol 49.3 mg/dL 53, 57 LDL Cholesterol 54 mg/dL 53, 58 Laboratory test 12/17/2014 PSA Diagnostic 0.588 ng/mL 0-4.0 59 finding Laboratory test 12/17/2014 Lipase 22 U/L 11.0-82.0 53, 60 finding Urine Microalbumin 12/13/2014 Ur Microalbumin 18.0 mg/L Random (mg/L) Urine Creatinine 40.12 mg/dL Urine Microalbumin/Creatinine 44.8 ug/mg High <31 Ua Routine 12/13/2014 Ua Specific [place] 1.005 Ua PH 5 Ua Color yellow Ua Appera clear Ua WBC negative Ua Protein negative Ua Glucose 2000+++ Ua Ketones negative Ua Bilirubin negative Ua Urobilinogen normal Ua Nitrite negative Ua Occult Blood negative Laboratory test 10/16/2014 Point of Care Glucose 253 mg/dL High 74-106 61 finding Laboratory test 10/16/2014 Point of Care Glucose 263 mg/dL High 74-106 62 finding Laboratory test 10/07/2014 Surgical Pathology SEE RESULT 63 finding BELOW Urine Microalbumin 01/31/2014 Ur Microalbumin (mg/L) 65.0 mg/L Random Urine Creatinine 162.43 mg/dL Urine Microalbumin/Creatinine 40.0 High Less Than 31 Comp Metabolic Panel 01/31/2014 Sodium 131 mmol/L Low 133-145 64 Potassium 4.1 mmol/L 3.7-5.6 64 Chloride 96 mmol/L Low 101-111 64 Co2 Carbon Dioxide 30 mmol/L 22-32 64 Anion Gap 5 mmol/L 2-11 64 Glucose 132 mg/dL High 70-100 64 Blood Urea Nitrogen 20 mg/dL 6-24 64 Creatinine 1.04 mg/dL 0.67-1.17 64 BUN/Creatinine Ratio 19.2 8-20 64 Calcium 9.2 mg/dL 8.6-10.3 64 Total Protein 6.7 g/dL 6.4-8.9 64 Albumin 4.2 g/dL 3.2-5.2 64 Globulin 2.5 g/dL 2-4 64 Albumin/Globulin Ratio 1.7 1-3 64 Total Bilirubin 1.80 mg/dL High 0.2-1.0 64 Alkaline Phosphatase 73 U/L 34-104 64 Alt 22 U/L 7-52 64 Ast 17 U/L 13-39 64 Egfr Non- 69.6 >60 64 Egfr 89.5 >60 64, 65 Lipid Profile (Trig/Chol/HDL) 01/31/2014 Triglycerides 80 mg/dL 64, 66 Cholesterol 125 mg/dL 64, 67 HDL Cholesterol 66.1 mg/dL 64, 68 LDL Cholesterol 43 mg/dL 64, 69 Liver Function Panel 01/31/2014 Direct Bilirubin 0.30 mg/dL High 0.03- 0.18 64 Indirect Bilirubin 1.5 mg/dL High 0.3-1.0 64 Laboratory test finding 01/08/2014 PSA Diagnostic 0.589 ng/mL 0-4.0 70 Laboratory test finding 02/28/2013 Luteinizing Hormone 12.11 miu/mL High 2 -12 Testosterone Free & 02/28/2013 Free Testosterone ng/dl 14 ng/dL 9-30 71 Total Testosterone 460 ng/dL 240-950 72 Urine Microalbumin Random 02/23/2013 Ur Microalbumin (mg/L) 47.0 mg/L 73 Urine Creatinine 365.4 mg/dL Urine Microalbumin/Creatinine 12.9 Less Than 31 Comp Metabolic Panel 02/23/2013 Sodium 135 mmol/L 133-145 Potassium 4.2 mmol/L 3.5-5.0 Chloride 100 mmol/L Low 101-111 Co2 Carbon Dioxide 28.0 mmol/L 22-32 Anion Gap 7.0 mmol/L 2-11 Glucose 96 mg/dL 70-100 Blood Urea Nitrogen 23 mg/dL 6-24 Creatinine 1.00 mg/dL 0.50-1.40 BUN/Creatinine Ratio 23.0 High 8-20 Calcium 9.3 mg/dL 8.1-9.9 Total Protein 6.5 g/dL 6.2-8.1 Albumin 3.8 g/dL 3.2-5.2 Globulin 2.7 g/dL 2-4 Albumin/Globulin Ratio 1.4 1-3 Total Bilirubin 1.5 mg/dL 0.4-1.5 Alkaline Phosphatase 60 U/L 30-110 Alt 19 U/L 14-54 Ast 18 U/L 12-42 Egfr Non- 73.0 >60 Egfr 93.9 >60 74 Lipid Profile (Trig/Chol/HDL) 02/23/2013 Triglycerides 46 mg/dL 40-200 Cholesterol 120 mg/dL Less than 200 HDL Cholesterol 51 mg/dL 40-60 75 Cholesterol/HDL Ratio 2.4 Average 1-4.44 LDL Cholesterol 59.8 Less Than 100 76 Liver Function Panel 02/23/2013 Direct Bilirubin 0.2 mg/dL 0.1-0.5 Indirect Bilirubin 1.3 mg/dL High 0.3-1.0 Laboratory test finding 02/23/2013 Vitamin B12 406 pg/mL 180-914 77 Laboratory test finding 01/24/2013 Stool Culture (SEE NOTE) 78 O&P Ova & Parasites Full 01/24/2013 Ova Parasite Concen (SEE NOTE) 79 Full Stool For Blood 01/24/2013 Stool Occult Blood (SEE NOTE) 80 Laboratory test finding 01/24/2013 O P: Giardia/Cryptospor (SEE NOTE) 81 Screen Laboratory test finding 01/02/2013 PSA Diagnostic 0.49 ng/mL 0-4.0 82 Basic Metabolic Panel 09/08/2012 Sodium 138 mmol/L 133-145 Potassium 4.3 mmol/L 3.5-5.0 Chloride 103 mmol/L 101-111 Co2 Carbon Dioxide 31.0 mmol/L 22-32 Anion Gap 4.0 mmol/L 2-11 Glucose 97 mg/dL 70-100 Blood Urea Nitrogen 22 mg/dL 6-24 Creatinine 1.10 mg/dL 0.50-1.40 BUN/Creatinine Ratio 20.0 8-20 Calcium 9.6 mg/dL 8.1-9.9 Egfr Non- 65.6 >60 Egfr 84.4 >60 83 Laboratory test finding 09/08/2012 Erythrocyte Sed Rate 10 mm/Hr 0-40 Basic Metabolic Panel 05/03/2012 Sodium 133 mmol/L 133-145 Potassium 4.5 mmol/L 3.5-5.0 Chloride 98 mmol/L Low 101-111 Co2 Carbon Dioxide 30.0 mmol/L 22-32 Anion Gap 5.0 mmol/L 2-11 Glucose 178 mg/dL High 70-100 Blood Urea Nitrogen 15 mg/dL 6-24 Creatinine 1.00 mg/dL 0.50-1.40 BUN/Creatinine Ratio 15.0 8-20 Calcium 9.3 mg/dL 8.1-9.9 Egfr Non- 73.2 >60 Egfr 94.2 >60 84 Urine Microalbumin Random 02/11/2012 Ur Microalbumin (Mg/L) 113.0 mg/L 85 Urine Creatinine 165.6 mg/dL Urine Microalbumin/Creatinine 68.2 UG/MG High Less Than 31 Comp Metabolic Panel 02/11/2012 Sodium 137 mmol/L 133-145 Potassium 4.5 mmol/L 3.5-5.0 Chloride 100 mmol/L Low 101-111 Co2 Carbon Dioxide 30.0 mmol/L 22-32 Anion Gap 7.0 mmol/L 2-11 Glucose 206 mg/dL High 70-100 Blood Urea Nitrogen 14 mg/dL 6-24 Creatinine 1.10 mg/dL 0.50-1.40 BUN/Creatinine Ratio 12.7 8-20 Calcium 9.4 mg/dL 8.1-9.9 Total Protein 5.9 GM/DL Low 6.2-8.1 Albumin 3.8 GM/DL 3.2-5.2 Globulin 2.1 GM/DL 2-4 Albumin/Globulin Ratio 1.8 1-3 Total Bilirubin 2.0 mg/dL High 0.1-1.0 86 Alkaline Phosphatase 75 U/L 30-110 Alt 23 U/L 14-54 Ast 21 U/L 12-42 Egfr Non- 65.6 >60 Egfr 84.4 >60 87 Lipid Profile (Trig/Chol/HDL) 02/11/2012 Triglycerides 143 mg/dL 40-200 Cholesterol 129 mg/dL Less than 200 88 HDL Cholesterol 56 mg/dL 40-60 89 Cholesterol/HDL Ratio 2.3 AVERAGE 1-4.44 LDL Cholesterol 44.4 mg/dL Less Than 100 Liver Function Panel 02/11/2012 Direct Bilirubin 0.3 mg/dL 0.1-0.5 Indirect Bilirubin 1.7 mg/dL High 0.3-1.0 Laboratory test finding 02/11/2012 Vitamin B12 378 pg/mL 180-914 TSH (Thyroid Stimulating Horm) 0.74 MIU/ML 0.34-5.60 Laboratory test finding 02/11/2012 PSA Diagnostic 0.67 NG/ML 0-4.0 CBC Auto Diff 10/21/2011 White Blood Count 4.1 CUMM Low 4.8-10.8 Red Cell Count 4.36 CUMM Low 4.6-6.2 Hemoglobin 13.6 g/dL Low 14.0-18.0 Hematocrit 40 % Low 42-52 Mean Corpuscular Volume 91 um3 80-94 Mean Corpuscular Hemoglob 31 pg 27-31 Mean Corpuscular HGB Cone 34 g/dL 32-36 Redcell Distribution WDTH 14 % 10.5-15 Platelet Count 212 CUMM 150-450 Mean Platelet Volume 9.0 um3 7.4-10.4 Gran % 68.0 % 38-83 Lymph % 19.2 % Low 25-47 Mononuclear % 10.5 % High 1-9 Eosinophil % 1.8 % 0-6 Basophil % 0.5 % 0-2 Abs Lymphs 0.8 Low 1.0-4.8 Abs Mononuclear 0.4 0-0.8 Absolute Neutrophil Count 2.8 1.5-7.7 Abs Eosinophils 0.1 0-0.6 Abs Basophils 0 0-0.2 90 Lipid Profile (Trig/Chol/HDL) 09/10/2011 Triglyceride 70 mg/dL 40-200 Cholesterol 117 mg/dL Less Than 200 91 High Density Lipoprotein 38 mg/dL Low 40-60 92 Cholesterol/HDL Ratio 3.08 AVERAGE 1-4.97 Low Density Lipoprotein 65 mg/dL Less Than 100 93 CBC Auto Diff 09/10/2011 White Blood Count 3.5 CUMM Low 4.8-10.8 Red Cell Count 4.06 CUMM Low 4.6-6.2 Hemoglobin 13.1 g/dL Low 14.0-18.0 Hematocrit 38 % Low 42-52 Mean Corpuscular Volume 92 um3 80-94 Mean Corpuscular Hemoglob 32 pg High 27-31 Mean Corpuscular HGB Cone 35 g/dL 32-36 Redcell Distribution WDTH 13 % 10.5-15 Platelet Count 235 CUMM 150-450 Mean Platelet Volume 9.6 um3 7.4-10.4 Gran % 60.3 % 38-83 Lymph % 23.7 % Low 25-47 Mononuclear % 13.4 % High 1-9 Eosinophil % 2.1 % 0-6 Basophil % 0.5 % 0-2 Abs Lymphs 0.8 Low 1.0-4.8 Abs Mononuclear 0.5 0-0.8 Absolute Neutrophil Count 2.1 1.5-7.7 Abs Eosinophils 0.1 0-0.6 Abs Basophils 0 0-0.2 Urine Microalbumin Random 09/10/2011 Microalbumin (MG/L) 61.0 mg/L Urine Creatinine 214.2 mg/dL [place] Alb/Creatinine Ratio 28.5 UG/MG Less Than 30 94 Comp Metabolic Panel 09/10/2011 Sodium 138 mmol/L 135-145 Potassium 4.1 mmol/L 3.5-5.0 Chloride 101 mmol/L 101-111 Co2 (Carbon Dioxide) 30.0 mmol/L 22-32 Anion Gap 7.0 mmol/L 2-11 95 Glucose 78 mg/dL 70-100 BUN 12 mg/dL 6-24 Creatinine 1.1 mg/dL 0.50-1.40 One Over Creatinine 0.90 BUN/Creatinine Ratio 10.9 8-20 Calcium 9.5 mg/dL 8.1-9.9 Total Protein 6.0 GM/DL Low 6.2-8.1 Albumin 3.6 GM/DL 3.2-5.2 Globulin 2.4 GM/DL 2-4 Albumin/Globulin Ratio 1.5 1-3 Bilirubin Total 1.1 mg/dL 0.4-1.5 96 Alkaline Phosphatase 74 U/L 39-117 Alt (SGPT) 20 U/L 17-63 Ast (Sgot) 21 U/L 12-42 eGFR Non- 65.8 > 60 eGFR 84.6 > 60 97 CBC Auto Diff 08/29/2011 White Blood Count 4.3 CUMM Low 4.8-10.8 Red Cell Count 4.29 CUMM Low 4.6-6.2 Hemoglobin 13.6 g/dL Low 14.0-18.0 Hematocrit 40 % Low 42-52 Mean Corpuscular Volume 93 um3 80-94 Mean Corpuscular Hemoglob 32 pg High 27-31 Mean Corpuscular HGB Cone 34 g/dL 32-36 Redcell Distribution WDTH 13 % 10.5-15 Platelet Count 176 CUMM 150-450 Mean Platelet Volume 9.1 um3 7.4-10.4 Gran % 64.5 % 38-83 Lymph % 20.1 % Low 25-47 Mononuclear % 11.9 % High 1-9 Eosinophil % 2.1 % 0-6 Basophil % 1.4 % 0-2 Abs Lymphs 0.9 Low 1.0-4.8 Abs Mononuclear 0.5 0-0.8 Absolute Neutrophil Count 2.7 1.5-7.7 Abs Eosinophils 0.1 0-0.6 Abs Basophils 0.1 0-0.2 Laboratory test finding 08/29/2011 BNP Evaluatr 24.0 pg/mL 0-100 Comp Metabolic Panel 08/29/2011 Sodium 137 mmol/L 135-145 Potassium 3.5 mmol/L 3.5-5.0 Chloride 100 mmol/L Low 101-111 Co2 (Carbon Dioxide) 24.0 mmol/L 22-32 Anion Gap 13.0 mmol/L High 2-11 98 Glucose 168 mg/dL High 70-100 BUN 19 mg/dL 6-24 Creatinine 0.8 mg/dL 0.50-1.40 One Over Creatinine 1.25 BUN/Creatinine Ratio 23.8 High 8-20 Calcium 9.2 mg/dL 8.1-9.9 Total Protein 6.7 GM/DL 6.2-8.1 Albumin 3.8 GM/DL 3.2-5.2 Globulin 2.9 GM/DL 2-4 Albumin/Globulin Ratio 1.3 1-3 Bilirubin Total 1.3 mg/dL 0.4-1.5 99 Alkaline Phosphatase 77 U/L 39-117 Alt (SGPT) 20 U/L 17-63 Ast (Sgot) 20 U/L 12-42 eGFR Non- 95.0 > 60 eGFR 122.2 > 60 100 Laboratory test finding 08/29/2011 Troponin-I 0.07 NG/ML High 0-0.06 101 CPK (Creatine Kinase) 180 U/L 0-200 CKMB 08/29/2011 CKMB In NG/ML 3.5 NG/ML 0.3-4.0 % CKMB 2 %MB 0-9 102 Laboratory test finding 08/29/2011 Myoglobin 63.90 NG/ML 17.4-105.7 Comp Metabolic Panel 10/07/2010 Sodium 134 mmol/L Low 135-145 Potassium 4.5 mmol/L 3.5-5.0 Chloride 99 mmol/L Low 101-111 Co2 (Carbon Dioxide) 30.0 mmol/L 22-32 Anion Gap 5.0 mmol/L 2-11 103 Glucose 254 mg/dL High 70-100 BUN 16 mg/dL 6-24 Creatinine 0.90 mg/dL 0.50-1.40 One Over Creatinine 1.10 BUN/Creatinine Ratio 17.8 8-20 Calcium 9.0 mg/dL 8.1-9.9 Total Protein 5.9 GM/DL Low 6.2-8.1 Albumin 3.8 GM/DL 3.2-5.2 Globulin 2.1 GM/DL 2-4 Albumin/Globulin Ratio 1.8 1-3 Bilirubin Total 2.4 mg/dL High 0.4-1.5 104 Alkaline Phosphatase 76 U/L 39-117 Alt (SGPT) 24 U/L 17-63 Ast (Sgot) 23 U/L 12-42 eGFR Non- 83.2 > 60 eGFR 107.0 > 60 105 Lipid Profile (Trig/Chol/HDL) 10/07/2010 Triglyceride 95 mg/dL 40-200 Cholesterol 130 mg/dL Less Than 200 106 High Density Lipoprotein 52 mg/dL 40-60 107 Cholesterol/HDL Ratio 2.50 AVERAGE 1-4.97 Low Density Lipoprotein 59 mg/dL Less Than 100 108 Urine Microalbumin Random 10/07/2010 Microalbumin (MG/L) 68.0 mg/L Urine Creatinine 146.00 mg/dL Rodolfo Alb/Creatinine Ratio 46.5 UG/MG High Less Than 30 109 Lipid Profile (Trig/Chol/HDL) 05/14/2010 Triglyceride 91 mg/dL 40-200 Cholesterol 138 mg/dL Less Than 200 110 High Density Lipoprotein 43 mg/dL 40-60 111 Cholesterol/HDL Ratio 3.21 AVERAGE 1-4.97 Low Density Lipoprotein 77 mg/dL Less Than 100 112 Laboratory test finding 05/14/2010 Vitamin B12 304 pg/mL 180-914 CBC With Electronic Diff 02/27/2010 White Blood Count 3.9 CUMM Low 4.8- 10.8 Red Cell Count 4.43 CUMM Low 4.6-6.2 Hemoglobin 14.1 g/dL 14.0-18.0 Hematocrit 41 % Low 42-52 Mean Corpuscular Volume 93 um3 80-94 Mean Corpuscular Hemoglob 32 pg High 27-31 Mean Corpuscular HGB Cone 34 g/dL 32-36 Redcell Distribution WDTH 13 % 10.5-15 Platelet Count 217 CUMM 150-450 Mean Platelet Volume 7.7 um3 7.4-10.4 Gran % 59.2 % 38-83 Lymph % 25.2 % 25-47 Mononuclear % 12.4 % High 1-9 Eosinophil % 2.9 % 0-6 Basophil % 0.3 % 0-2 Abs Lymphs 1.0 1.0-4.8 Abs Mononuclear 0.5 0-0.8 Absolute Neutrophil Count 2.3 1.5-7.7 Abs Eosinophils 0.1 0-0.6 Abs Basophils 0 0-0.2 Lipid Profile (Trig/Chol/HDL) 02/27/2010 Triglyceride 128 mg/dL 40-200 Cholesterol 156 mg/dL Less Than 200 113 High Density Lipoprotein 47 mg/dL 40-60 114 Cholesterol/HDL Ratio 3.32 AVERAGE 1-4.97 Low Density Lipoprotein 83 mg/dL Less Than 100 115 Liver Function Panel 02/27/2010 Total Protein 6.3 GM/DL 6.2-8.1 Albumin 3.8 GM/DL 3.2-5.2 Globulin 2.5 GM/DL 2-4 Albumin/Globulin Ratio 1.5 1-3 Bilirubin Total 2.2 mg/dL High 0.4-1.5 116 Bilirubin Direct 0.3 mg/dL 0.1-0.5 Indirect Bilirubin 1.9 mg/dL High 0.3-1.0 117 Alkaline Phosphatase 71 U/L 39-117 Alt (SGPT) 24 U/L 17-63 Ast (Sgot) 17 U/L 12-42 Iron & Iron Binding Capacity 02/27/2010 Iron Total 108 g/dL 45-182 Unsaturated Iron Binding 257 g/dL Total Iron Binding Capacity 365 g/dL 250-450 % Iron Saturation 30 % 15-55 Laboratory test finding 02/27/2010 Ferritin 71 NG/ML 24-336 Vitamin B12 194 pg/mL 180-914 Protein Electrophoresis Serum 02/27/2010 Albumin 3.30 GM/DL 3.0-4.35 Alpha 1 0.20 GM/DL 0.09-0.33 Alpha 2 0.83 GM/DL 0.59-1.18 Beta 0.80 GM/DL 0.68-1.02 Gamma 0.97 GM/DL 0.76-1.60 Albumin % 54.1 % 46-63 Alpha 1 % 3.3 % 1.2-5.3 Alpha 2 % 13.6 % 9-17 Beta % 13.1 % 10-16 Gamma % 15.9 % 12-22 A/G Ratio 1.2 0.9-2 Total Protein 6.1 GM/DL Low 6.2-8.1 Spep Comments (SEE NOTE) 118 CBC With Electronic Diff 02/19/2010 White Blood Count 4.9 CUMM 4.8-10.8 119 Red Cell Count 4.36 CUMM Low 4.6-6.2 119 Hemoglobin 13.9 g/dL Low 14.0-18.0 119 Hematocrit 40 % Low 42-52 119 Mean Corpuscular Volume 92 um3 80-94 119 Mean Corpuscular Hemoglob 32 pg High 27-31 119 Mean Corpuscular HGB Cone 35 g/dL 32-36 119 Redcell Distribution WDTH 13 % 10.5-15 119 Platelet Count 198 CUMM 150-450 119 Mean Platelet Volume 7.5 um3 7.4-10.4 119 Gran % 69.0 % 38-83 119 Lymph % 16.7 % Low 25-47 119 Mononuclear % 11.9 % High 1-9 119 Eosinophil % 1.7 % 0-6 119 Basophil % 0.7 % 0-2 119 Abs Lymphs 0.8 Low 1.0-4.8 119 Abs Mononuclear 0.6 0-0.8 119 Absolute Neutrophil Count 3.4 1.5-7.7 119 Abs Eosinophils 0.1 0-0.6 119 Abs Basophils 0 0-0.2 119, 120 Comp Metabolic Panel 02/19/2010 Sodium 135 mmol/L 135-145 119 Potassium 4.4 mmol/L 3.5-5.0 119 Chloride 100 mmol/L Low 101-111 119 Co2 (Carbon Dioxide) 26.0 mmol/L 22-32 119 Anion Gap 9.0 mmol/L 2-11 119, 121 Glucose 214 mg/dL High 70-100 119, 122 BUN 16 mg/dL 6-24 119 Creatinine 0.90 mg/dL 0.50-1.40 119 One Over Creatinine 1.10 119 BUN/Creatinine Ratio 17.8 8-20 119 Calcium 9.3 mg/dL 8.1-9.9 119 Total Protein 6.7 GM/DL 6.2-8.1 119 Albumin 3.9 GM/DL 3.2-5.2 119 Globulin 2.8 GM/DL 2-4 119 Albumin/Globulin Ratio 1.4 1-3 119 Bilirubin Total 2.2 mg/dL High 0.4-1.5 119, 123 Alkaline Phosphatase 78 U/L 39-117 119 Alt (SGPT) 27 U/L 17-63 119 Ast (Sgot) 27 U/L 12-42 119 eGFR Non- 88.4 > 60 119 eGFR 107.0 > 60 119, 124 Laboratory test finding 02/19/2010 CPK (Creatine Kinase) 122 U/L 0-200 119 Troponin-I (TnI) 0.02 NG/ML 119, 125 Protime 02/19/2010 Inr 0.91 0.82-1.17 119, 126 Protime 10.7 SEC 10.2-14.8 119, 127 Laboratory test finding 02/19/2010 PTT (Aptt) 29.4 25.15-38.53 119 D Dimer Quantitative < 200 Less Than 230 119 Laboratory test finding 10/08/2009 PSA Screening 0.71 NG/ML 0-4 128 Urinalysis W/Microscopic 02/02/2007 Ua Color YELLOW Ictotest-Urine NEGATIVE (NEG) Appearance-Urine CLEAR Bacteria-Urine TRACE Blood-Urine NEGATIVE Negative Epith Cells-Ur RARE Esterase-Urine TRACE Negative Glucose-Urine NEGATIVE Negative Ketones-Urine NEGATIVE Negative Mucus Urine LARGE Nitrite NEGATIVE Negative PH-Urine 6.0 5-9 Protein-Urine 1+ Negative RBC-Urine 0-2 0-2 Lpsstmmzrgdx-Ad-LOA NEGATIVE Negative Specific [place]-Ur 1.017 1.010-1.030 WBC-Urine 0-2 0-5 Comp Metabolic Panel 02/02/2007 One Over Creatinine 1.00 Anion Gap 5.0 mmol/L 2-11 129 Albumin/Globulin Ratio 1.8 1-3 Albumin 4.0 GM/DL 3.2-5.2 Alkaline Phosphatase 74 U/L 39-117 Alt (SGPT) 21 U/L 17-63 Ast (Sgot) 20 U/L 12-42 BUN 17 mg/dL 6-24 Calcium 9.0 mg/dL 8.7-10.2 Chloride 98 mmol/L Low 101-111 Co2 (Carbon Dioxide) 31.0 mmol/L 22-32 Globulin 2.2 GM/DL 2-4 Glucose 110 mg/dL High 70-105 Potassium 4.2 mmol/L 3.5-5.0 Sodium 134 mmol/L Low 135-145 Bilirubin Total 1.6 mg/dL High 0.4-1.5 Total Protein 6.2 GM/DL 6.2-8.1 BUN/Creatinine Ratio 17.0 8-20 Creatinine 1.0 mg/dL 0.5-1.4 Lipid Profile 02/02/2007 Cholesterol/HDL Ratio 3.52 AVERAGE 1-4.97 (Trig/Chol/HDL) Cholesterol 169 mg/dL Less Than 200 130 Triglyceride 135 mg/dL 40-200 High Density Lipoprotein 48 mg/dL 40-60 Low Density Lipoprotein 94 mg/dL Less Than 100 131 Laboratory test finding 02/02/2007 TSH 0.95 MIU/ML 0.34-5.60 Vitamin B12 184 pg/mL 180-914 Testosterone Total 369.1 ng/dL 175-781 Hemoglobin A1c 7.8 % High <6.0 132 1 Interpretive information available on [facility] Test Catalog at [email or web address] 2 SEE RESULT BELOW Name: MARIE SWEENEY : [address]: Daysi Greer MD Acct: [id number] Unit: [id number] AGE: 78 Location: [place] [address] Re02/06/18 Dis: 02/10/18 SEX: M Status: DIS IN SPEC: [id number] VENU: 02/06/[address]: Bob Bertrand MD REQ: [id number] RECD: 02/06/18 STATUS: LIZZETTE ANSARI DR: Noa Fernandez MD _ SOURCE: BLOOD,VENO SPDESC: ORDERED: Blood Cult Procedure Result Reported Site Aerobic Culture Bottle Final 02/11/18- 1820 ML No Growth Day 5 Anaerobic Culture Bottle Final 02/11/18- 1820 ML No Growth Day 5 * ML - Main Lab . END OF REPORT DEPARTMENT OF PATHOLOGY, [address] [place] [address] Tavo Patel M.D. Director [facility] # [id number] 3 SEE RESULT BELOW Name: MARIE SWEENEY : [address]: Moraima Montague DO Acct: [id number] Unit: [id number] AGE: 78 Location: [place] [address] Re02/06/18 SEX: M Status: ADM IN SPEC: [id number] VENU: 02/06/[address]: Bob Bertrand MD REQ: [id number] RECD: 02/06/18 STATUS: LIZZETTE ANSARI DR: Noa Fernandez MD _ SOURCE: SPUTUM,EXP SPDESC: ORDERED: Sputum Cult/GS Procedure Result Reported Site Sputum Smear Final 02/07/18- 0801 ML 4+ Neutrophils 1+ Epithelial Cells 4+ Gram Positive Cocci 1+ Gram Negative Bacilli 2+ Gram Positive Diplococci 1+ Gram Negative Coccobacilli Sputum Culture Final 02/08/18- 1316 ML Organism 1 NORMAL DOREEN Quantity 2+ * ML - Main Lab . END OF REPORT DEPARTMENT OF PATHOLOGY, [address] [place] [address] Tavo Patel M.D. Director [facility] # [id number] 4 Because ethnic data is not always readily available, this report includes an eGFR for both -Americans and non- Americans. The National Kidney Disease Education Program (NKDEP) does not endorse the use of the MDRD equation for patients that are not between the ages of 18 and 70, are , have extremes of body size, muscle mass, or nutritional status, or are non- or non-. According to the National Kidney Foundation, irrespective of diagnosis, the stage of the disease is based on the level of kidney function: Stage Description GFR(mL/min/1.73 m(2)) 1 Kidney damage with normal or decreased GFR 90 2 Kidney damage with mild decrease in GFR 60-89 3 Moderate decrease in GFR 30-59 4 Severe decrease in GFR 15-29 5 Kidney failure <15 (or dialysis) 5 [facility] Severe Sepsis and Septic Shock Management Bundle Measure requires all lactic acids initially measuring >2.0 mmol/L be repeated. 6 Result TnIDx:0.06 Called to [id number] at: 17:25:41 by:[id number] Read back by: [id number] 7 SEE RESULT BELOW Name: PATELMARIE : [address]: Kenny Ortega MD Acct: [id number] Unit: [id number] AGE: 78 Location: ED Re02/05/18 SEX: M Status: REG ER SPEC: [id number] VENU: 02/05/[address]: Ayla JOHNSON REQ: [id number] RECD: 02/05/18 STATUS: LIZZETTE ANSARI DR: [facility] Noa Fernandez MD _ SOURCE: THROAT SPDESC: ORDERED: Strep A Request Procedure Result Reported Site Rapid Strep A Request Final 02/05/18- 1535 ML Specimen received for Rapid Strep A Molecular testing * ML - Main Lab . END OF REPORT DEPARTMENT OF PATHOLOGY, [address] [place] [address] Tavo Patel M.D. Director [facility] # [id number] 8 Soda Tester: [id number] 9 SEE RESULT BELOW Name: MARIE SWEENEY : [address]: Kenny Ortega MD Acct: [id number] Unit: [id number] AGE: 78 Location: ED Re02/05/18 SEX: M Status: REG ER SPEC: [id number] VENU: 02/05/18 [facility] DR: Kenny Ortega MD REQ: [id number] RECD: 02/05/18 STATUS: LIZZETTE ANSARI DR: Noa Fernandez MD _ [facility] ORDERED: Flu A B Request Procedure Result Reported Site Rapid Influenza A B Request Final 02/05/181640 ML Specimen received for Influenza A/B Molecular testing * ML - Main Lab . END OF REPORT DEPARTMENT OF PATHOLOGY, [address] [place] [address] Tavo Patel M.D. Director [facility] # [id number] 10 Soda Tester: [id number] 1623-A:Morphology: pearly telangiectatic papule;DDX: Basal Cell Carcinoma;Location: right frontal 12 SEE RESULT BELOW Name: MARIE SWEENEY : [address]: Mami Lou MD Acct: [id number] Unit: [id number] AGE: 77 Location: [facility] Re01/05/18 SEX: M Status: REG REF SPEC: [id number] VENU: 01/05/18-1311 [facility] DR: Mami Lou MD REQ: [id number] RECD: 01/05/18-1715 STATUS: MARLEN ANSARI DR: Noa Fernandez MD _ ORDERED: LEVEL 4 COMMENTS: [id number] FINAL DIAGNOSIS Skin, right frontal scalp, biopsy: -- Basal cell carcinoma, superficial and nodular type, ulcerated. PRE-OPERATIVE DIAGNOSIS Pearly telangiectatic papule, basal cell carcinoma GROSS DESCRIPTION The specimen is received in formalin labeled, Right Frontal Scalp, and consists of a 0.9 x 0.8 cm roberts-pink ovoid hairbearing skin shave with a central 0.6 x 0.4 cm yellow red scabrous to focally eroded lesion. The specimen is inked, trisected and submitted entirely in one cassette. Signed by and Reported on: Emely Benitez MD 01/06/18 1013 END OF REPORT DEPARTMENT OF PATHOLOGY, [address] [place] [address] Tavo Patel M.D. Director [facility] # [id number] 14 SEE RESULT BELOW Name: MARIE SWEENEY : [address]: Jorden Silva MD Acct: [id number] Unit: [id number] AGE: 77 Location: [facility] Re09/29/17 SEX: M Status: BECKY GEE SPEC: [id number] VENU: 09/29/17-[address]: Jorden Silva MD REQ: [id number] RECD: 09/29/17 STATUS: SOUT _ ORDERED: Mari, LEVEL 3 COMMENTS: [id number] FINAL DIAGNOSIS Bone, left index finger, middle phalanx, biopsy: -- Partially devitalized bone fragments with evidence of bony remodeling and scant reactive intramedullary soft tissue. -- No specific features of chronic osteomyelitis seen in scant specimen. Comment: The specimen is scant demonstrating a few partially devitalized bone fragments with evidence of prior remodeling. A few minute fragments of fibroconnective tissue with a few reactive fibroblasts noted. Specific features of osteomyelitis are not seen though this specimen may be insufficient for further evaluation. Clinical correlation and additional studies is warranted. Correlation with microbiology studies is recommended. PRE-OPERATIVE DIAGNOSIS Left index finger pain and swelling; rule out concern osteomyelitis GROSS DESCRIPTION The specimen is received in formalin labeled, Left Index Finger Middle Phalanx, and consists of a 0.2 x 0.1 x 0.1 cm aggregate of roberts-white irregular bone fragments which is submitted entirely in one cassette following decalcification. Signed by and Reported on: Tavo Patel MD 04/11 1149 END OF REPORT DEPARTMENT OF PATHOLOGY, [address] [place] [address] Tavo Patel M.D. Director [facility] # [id number] 15 SEE RESULT BELOW Name: PATELMARIE Lopez : [address]: Jorden Silva MD Acct: [id number] Unit: [id number] AGE: 77 Location: [facility] Re09/29/17 SEX: M Status: DEP SDC SPEC: [id number] VENU: 09/29/17 [facility] DR: Jorden Silva MD REQ: [id number] RECD: 09/29/17 STATUS: LIZZETTE ANSARI DR: Noa Fernandez MD _ SOURCE: FINGER SPDESC:INDEX LEFT ORDERED: Culture Stain Procedure Result Reported Site Wound/Misc Gram Stain Final 09/30/17- 35 ML 1+ Neutrophils No Organisms Seen Wound/Misc Culture Final 10/03/17- 806 ML No Growth Day 4 * ML - Main Lab . END OF REPORT DEPARTMENT OF PATHOLOGY, [address] [place] [address] Tavo Patel M.D. Director [facility] # [id number] 16 SEE RESULT BELOW Name: MARIE SWEENEY John : [address]: Jorden Silva MD Acct: [id number] Unit: [id number] AGE: 77 Location: [facility] Re09/29/17 SEX: M Status: DEP SDC SPEC: [id number] VENU: 09/29/17 [facility] DR: Jorden Silva MD REQ: [id number] RECD: 09/29/17 STATUS: LIZZETTE ANSARI DR: Noa Fernanedz MD _ SOURCE: WOUND SPDESC:INDEX LEFT ORDERED: Anaerobic Cult Procedure Result Reported Site Anaerobic Culture Final 10/03/17- 0807 ML No Growth Day 4 * ML - Main Lab . END OF REPORT DEPARTMENT OF PATHOLOGY, [address] [place] [address] Tavo Patel M.D. Director [facility] # [id number] 17 Acute inflammation: >10.00 18 Acute inflammation: >10.00 19 Not diagnostic. Supplemental testing by immunoblot has been ordered by reflex. Test Performed by: [facility] - [address] [address] 20 Specific serologic response to B. burgdorferi infection is not detected, but cannot rule out early infection during which low or undetectable antibody levels to B. burgdorferi may be present. If clinically indicated, a new serum specimen should be submitted in 7-14 days. ADDITIONAL INFORMATION CDC criteria require >=5 bands for IgG or >=2 bands for IgM for the Immunoblot to be considered positive. Bands (e.g.,p41) may be detected in patients without Lyme disease, and patterns not meeting the CDC criteria should be interpreted with caution. Immunoblot should be ordered only on specimens that are positive or equivocal by a FDA-licensed Lyme disease antibody screening test (e.g., EIA). Test Performed by: [facility] - [address] [address] 21 Desirable: <150 Borderline High: 150-199 High: 200-499 Very High: >500 22 Desirable: <200 Borderline High: 200-239 High: >239 23 Low: <40 Desirable: 40-60 High: >60 24 Desirable: <100 Near Optimal: 100-129 Borderline High: 130-159 High: 160-189 Very High: >189 25 Serum levels of PSA measured using the Tonny Selkirk DXI Hybritech immunoassay should not be interpreted as absolute evidence of the presence or absence of disease. The PSA value should be used in conjunction with other pertinent clinical diagnostic procedures. A PSA value in the range of 0.1 to 0.6 ng/ml is indeterminate if being used as an indicator of recurrent or residual disease. The values obtained with different assay methods or kits cannot be used interchangeably. 26 Because ethnic data is not always readily available, this report includes an eGFR for both -Americans and non- Americans. The National Kidney Disease Education Program (NKDEP) does not endorse the use of the MDRD equation for patients that are not between the ages of 18 and 70, are , have extremes of body size, muscle mass, or nutritional status, or are non- or non-. According to the National Kidney Foundation, irrespective of diagnosis, the stage of the disease is based on the level of kidney function: Stage Description GFR(mL/min/1.73 m(2)) 1 Kidney damage with normal or decreased GFR 90 2 Kidney damage with mild decrease in GFR 60-89 3 Moderate decrease in GFR 30-59 4 Severe decrease in GFR 15-29 5 Kidney failure <15 (or dialysis) 27 Normal Range 180 to 914 Indeterminate Range 145 to 180 Deficient Range <145 28 Please note: The following may produce a false positive D Dimer test: - Rheumatoid factor greater than 60 IU/ml - Plasma hemoglobin greater than 0.05 gm/dl - Bilirubin greater than 50 mg/dl - Lipids greater than 1000 mg/dl - FDP greater than 20 ug/ml 29 Because ethnic data is not always readily available, this report includes an eGFR for both -Americans and non- Americans. The National Kidney Disease Education Program (NKDEP) does not endorse the use of the MDRD equation for patients that are not between the ages of 18 and 70, are , have extremes of body size, muscle mass, or nutritional status, or are non- or non-. According to the National Kidney Foundation, irrespective of diagnosis, the stage of the disease is based on the level of kidney function: Stage Description GFR(mL/min/1.73 m(2)) 1 Kidney damage with normal or decreased GFR 90 2 Kidney damage with mild decrease in GFR 60-89 3 Moderate decrease in GFR 30-59 4 Severe decrease in GFR 15-29 5 Kidney failure <15 (or dialysis) 30 Desirable <150 Borderline high 150-199 High 200-499 Very High >500 31 Desirable <200 Borderline high 200-239 High >239 32 Low <40 Desirable: 40-60 High: >60 33 Desirable: <100 mg/dL Near Optimal: 100-129 mg/dL Borderline High: 130-159 mg/dL High: 160-189 mg/dL Very High: >189 mg/dL 34 Because ethnic data is not always readily available, this report includes an eGFR for both -Americans and non- Americans. The National Kidney Disease Education Program (NKDEP) does not endorse the use of the MDRD equation for patients that are not between the ages of 18 and 70, are , have extremes of body size, muscle mass, or nutritional status, or are non- or non-. According to the National Kidney Foundation, irrespective of diagnosis, the stage of the disease is based on the level of kidney function: Stage Description GFR(mL/min/1.73 m(2)) 1 Kidney damage with normal or decreased GFR 90 2 Kidney damage with mild decrease in GFR 60-89 3 Moderate decrease in GFR 30-59 4 Severe decrease in GFR 15-29 5 Kidney failure <15 (or dialysis) 35 Because ethnic data is not always readily available, this report includes an eGFR for both -Americans and non- Americans. The National Kidney Disease Education Program (NKDEP) does not endorse the use of the MDRD equation for patients that are not between the ages of 18 and 70, are , have extremes of body size, muscle mass, or nutritional status, or are non- or non-. According to the National Kidney Foundation, irrespective of diagnosis, the stage of the disease is based on the level of kidney function: Stage Description GFR(mL/min/1.73 m(2)) 1 Kidney damage with normal or decreased GFR 90 2 Kidney damage with mild decrease in GFR 60-89 3 Moderate decrease in GFR 30-59 4 Severe decrease in GFR 15-29 5 Kidney failure <15 (or dialysis) 36 Because ethnic data is not always readily available, this report includes an eGFR for both -Americans and non- Americans. The National Kidney Disease Education Program (NKDEP) does not endorse the use of the MDRD equation for patients that are not between the ages of 18 and 70, are , have extremes of body size, muscle mass, or nutritional status, or are non- or non-. According to the National Kidney Foundation, irrespective of diagnosis, the stage of the disease is based on the level of kidney function: Stage Description GFR(mL/min/1.73 m(2)) 1 Kidney damage with normal or decreased GFR 90 2 Kidney damage with mild decrease in GFR 60-89 3 Moderate decrease in GFR 30-59 4 Severe decrease in GFR 15-29 5 Kidney failure <15 (or dialysis) 37 ARTERIAL ACCESS SITE 38 Reference ranges based on room air. 39 Reference ranges based on room air. 40 Reference ranges based on room air. 41 Reference ranges based on room air. 42 Because ethnic data is not always readily available, this report includes an eGFR for both -Americans and non- Americans. The National Kidney Disease Education Program (NKDEP) does not endorse the use of the MDRD equation for patients that are not between the ages of 18 and 70, are , have extremes of body size, muscle mass, or nutritional status, or are non- or non-. According to the National Kidney Foundation, irrespective of diagnosis, the stage of the disease is based on the level of kidney function: Stage Description GFR(mL/min/1.73 m(2)) 1 Kidney damage with normal or decreased GFR 90 2 Kidney damage with mild decrease in GFR 60-89 3 Moderate decrease in GFR 30-59 4 Severe decrease in GFR 15-29 5 Kidney failure <15 (or dialysis) 43 RESULT: No apparent monoclonal protein on serum electrophoresis. Test Performed by: [address] [address] [place]: Clifton Bruce II, M.D., Ph.D. 44 Desirable <150 Borderline high 150-199 High 200-499 Very High >500 45 Desirable <200 Borderline high 200-239 High >239 46 Low <40 Desirable: 40-60 High: >60 47 Desirable: <100 mg/dL Near Optimal: 100-129 mg/dL Borderline High: 130-159 mg/dL High: 160-189 mg/dL Very High: >189 mg/dL 48 Because ethnic data is not always readily available, this report includes an eGFR for both -Americans and non- Americans. The National Kidney Disease Education Program (NKDEP) does not endorse the use of the MDRD equation for patients that are not between the ages of 18 and 70, are , have extremes of body size, muscle mass, or nutritional status, or are non- or non-. According to the National Kidney Foundation, irrespective of diagnosis, the stage of the disease is based on the level of kidney function: Stage Description GFR(mL/min/1.73 m(2)) 1 Kidney damage with normal or decreased GFR 90 2 Kidney damage with mild decrease in GFR 60-89 3 Moderate decrease in GFR 30-59 4 Severe decrease in GFR 15-29 5 Kidney failure <15 (or dialysis) 49 FASTING 10 HOUR Copy Result to: [facility] ([id number]) 50 Normal Range 180 to 914 Indeterminate Range 145 to 180 Deficient Range <145 51 Copy Result to: [facility] ([id number]) 52 Because ethnic data is not always readily available, this report includes an eGFR for both -Americans and non- Americans. The National Kidney Disease Education Program (NKDEP) does not endorse the use of the MDRD equation for patients that are not between the ages of 18 and 70, are , have extremes of body size, muscle mass, or nutritional status, or are non- or non-. According to the National Kidney Foundation, irrespective of diagnosis, the stage of the disease is based on the level of kidney function: Stage Description GFR(mL/min/1.73 m(2)) 1 Kidney damage with normal or decreased GFR 90 2 Kidney damage with mild decrease in GFR 60-89 3 Moderate decrease in GFR 30-59 4 Severe decrease in GFR 15-29 5 Kidney failure <15 (or dialysis) 53 FASTING 10 HOUR 54 Because ethnic data is not always readily available, this report includes an eGFR for both -Americans and non- Americans. The National Kidney Disease Education Program (NKDEP) does not endorse the use of the MDRD equation for patients that are not between the ages of 18 and 70, are , have extremes of body size, muscle mass, or nutritional status, or are non- or non-. According to the National Kidney Foundation, irrespective of diagnosis, the stage of the disease is based on the level of kidney function: Stage Description GFR(mL/min/1.73 m(2)) 1 Kidney damage with normal or decreased GFR 90 2 Kidney damage with mild decrease in GFR 60-89 3 Moderate decrease in GFR 30-59 4 Severe decrease in GFR 15-29 5 Kidney failure <15 (or dialysis) 55 Desirable <150 Borderline high 150-199 High 200-499 Very High >500 56 Desirable <200 Borderline high 200-239 High >239 57 Low <40 Desirable: 40-60 High: >60 58 Desirable: <100 mg/dL Near Optimal: 100-129 mg/dL Borderline High: 130-159 mg/dL High: 160-189 mg/dL Very High: >189 mg/dL 59 Serum levels of PSA measured using the Tonny Apieron DXI Hybritech immunoassay should not be interpreted as absolute evidence of the presence or absence of disease. The PSA value should be used in conjunction with other pertinent clinical diagnostic procedures. A PSA value in the range of 0.1 to 0.6 ng/ml is indeterminate if being used as an indicator of recurrent or residual disease. The values obtained with different assay methods or kits cannot be used interchangeably. 60 FASTING 10 HOUR 61 Soda Tester: [id number] ALEX HARRELL 62 Soda Tester: [id number] GOLDIE PÉREZ 63 SEE RESULT BELOW Name: MARIE SWEENEY : [address]: Damian Goldberg MD Acct: [id number] Unit: [id number] AGE: 74 Location: ENDO Re10/07/14 SEX: M Status: REG REF SPEC: [id number] VENU: 10/07/14-[address]: Damian Goldberg MD REQ: [id number] RECD: 10/07/14 STATUS: MARLEN ANSARI DR: Noa Fernandez MD _ ORDERED: LEVEL IV FINAL DIAGNOSIS Colon, ascending, biopsy: -- Serrated adenomatous polyp. -- No high grade dysplasia or malignancy. CLINICAL HISTORY No further information provided POST-OPERATIVE DIAGNOSIS Screening colonoscopy to cecum - ascending colon polyp, tics. No repeat GROSS DESCRIPTION The specimen is received in formalin labeled, Biopsy Ascending Colon Polyp, and consists of a 0.7 x 0.6 x 0.2 cm aggregate of multiple roberts irregular soft tissue fragments, which is submitted entirely in one cassette. Signed (signature on file) Emely Benitez MD 1600 END OF REPORT * ML=Testing performed at Main Lab DEPARTMENT OF PATHOLOGY, [address] [place] [address] Tavo Patel M.D. Director [facility] # [id number] PT IS FASTING 65 Because ethnic data is not always readily available, this report includes an eGFR for both -Americans and non- Americans. The National Kidney Disease Education Program (NKDEP) does not endorse the use of the MDRD equation for patients that are not between the ages of 18 and 70, are , have extremes of body size, muscle mass, or nutritional status, or are non- or non-. According to the National Kidney Foundation, irrespective of diagnosis, the stage of the disease is based on the level of kidney function: Stage Description GFR(mL/min/1.73 m(2)) 1 Kidney damage with normal or decreased GFR 90 2 Kidney damage with mild decrease in GFR 60-89 3 Moderate decrease in GFR 30-59 4 Severe decrease in GFR 15-29 5 Kidney failure <15 (or dialysis) 66 Desirable <150 Borderline high 150-199 High 200-499 Very High >500 67 Desirable <200 Borderline high 200-239 High >239 68 Low <40 Desirable: 40-60 High: >60 69 Desirable <100 Near Optimal 100-129 Borderline high 130-159 High 160-189 Very High >189 70 Serum levels of PSA measured using the Tonny Dariel DXI Hybritech immunoassay should not be interpreted as absolute evidence of the presence or absence of disease. The PSA value should be used in conjunction with other pertinent clinical diagnostic procedures. A PSA value in the range of 0.1 to 0.6 ng/ml is indeterminate if being used as an indicator of recurrent or residual disease. The values obtained with different assay methods or kits cannot be used interchangeably. 71 Testing performed by [facility]. 72 Testing performed by Liquid Chromatography-Tandem Mass Spectrometry (LC-MS/MS). Test Performed by: [address] [address] [place] Sawyer: Bon Rivers III, M.D. 73 Microalbuminuria in a random sample is defined as: Microalbumin/Creatinine ratio of 30-299 ug/mg. 74 Because ethnic data is not always readily available, this report includes an eGFR for both -Americans and non- Americans. The National Kidney Disease Education Program (NKDEP) does not endorse the use of the MDRD equation for patients that are not between the ages of 18 and 70, are , have extremes of body size, muscle mass, or nutritional status, or are non- or non-. According to the National Kidney Foundation, irrespective of diagnosis, the stage of the disease is based on the level of kidney function: Stage Description GFR(mL/min/1.73 m(2)) 1 Kidney damage with normal or decreased GFR 90 2 Kidney damage with mild decrease in GFR 60-89 3 Moderate decrease in GFR 30-59 4 Severe decrease in GFR 15-29 5 Kidney failure <15 (or dialysis) 75 HDL Interpretation: Undesirable: High Risk: Less than 40 mg/dL Desirable: Low Risk: Greater than 60 mg/dL 76 LDL Interpretation: Low Risk Optimal Level: LDL Less than 100 mg/dL Near or Above Optimal: LDL 100-129 mg/dL Borderline High Risk: LDL 130-159 mg/dL High Risk: LDL 160-189 mg/dL Very High Risk: LDL Greater than 189 mg/dL 77 FASTING 78 RUN DATE: 01/26/13 [facility] LAB LIVE PAGE 1 RUN TIME: [address] [place] [address] Specimen Inquiry Name: MARIE SWEENEY : [address]: Noa Fernandez MD Acct: [id number] Unit: [id number] AGE: 73 Location: [facility] Re01/24/13 SEX: M Status: REG REF SPEC: [id number] VENU: 01/24/13 [facility] DR: Noa Fernandez MD REQ: [id number] RECD: 01/24/13 STATUS: RES _ SOURCE: STOOL SPDESC: ORDERED: Hemoccult, Stool Culture, O P (Full), O P: Giar/Crypt QUERIES: Medent Number [id number] Procedure Result Verified Site Stool Culture Final 01/26/13- 0959 ML Result No enteric pathogens isolated Testing for Salmonella, Shigella, Aeromonas, Plesiomonas, Yersinia and Campylobacter are included in a Stool Culture. Vibrio spp not routinely tested for in a stool culture. If testing is desired, please request specifically when placing test order. Sensitivities not routinely performed on stool isolates, as antibiotics may prolong the carriage rate of bacteria. Please contact the microbiology lab if sensitivities are required. Stool Specimen Description Final 01/24/13- 1545 ML Stool Color Brown Stool Form Nonformed Stool Consistency Soft Shiga Toxin 1 2 Final 01/26/13- 1354 ML Organism 1 Negative Shiga Toxin 1 2 Immunochromatographic Assay CONTINUED ON NEXT PAGE * ML=Testing performed at Main Lab DEPARTMENT OF PATHOLOGY, [address] [place] [address] Tavo Patel M.D. Director [facility] Permit #[id number] RUN DATE: 01/26/13 [facility] LAB LIVE PAGE 2 RUN TIME: [address] [place] [address] Specimen Inquiry Patient: MARIE SWEENEY [id number] (Continued) Specimen: [id number] Collected: 01/24/13 Received: 01/24/13 (Continued) Procedure Result Verified Site Shiga Toxin 1 2 Final (continued) 01/26/13- 1353 Stool Occult Blood Final 01/24/13- 1603 ML Stool Occult Blood Negative Ova Parasite Concen Full Final 01/25/13- 1608 ML Final Result No Ova Parasites seen by Ethyl Acetate Concentration No Cysts or Trophs Seen on Trichrome smear Cyclospora and Microsporidia testing not routinely performed with full Ova and Parasite analysis. O P: Giardia/Cryptospor Screen PENDING END OF REPORT * ML=Testing performed at Main Lab DEPARTMENT OF PATHOLOGY, [facility] [address] [place] [address] Tavo Patel M.D. Director [facility] Permit #[id number] RUN DATE: 01/25/13 [facility] LAB LIVE PAGE 1 RUN TIME: 1609 [facility] [address] [place], [place] [address] Specimen Inquiry Name: MARIE SWEENEY : [address]: Noa Fernandez MD Acct: [id number] Unit: [id number] AGE: 73 Location: [facility] Re01/24/13 SEX: M Status: REG REF SPEC: [id number] VENU: 01/24/13 [facility] DR: Noa Fernandez MD REQ: [id number] RECD: 01/24/13 STATUS: RES _ SOURCE: STOOL SPDESC: ORDERED: Hemoccult, Stool Culture, O P (Full), O P: Giar/Crypt QUERIES: Medent Number [id number] Procedure Result Verified Site Stool Culture Preliminary 01/25/13- 1204 ML <No reportable results for this procedure> Stool Specimen Description Final 01/24/13- 1545 ML Stool Color Brown Stool Form Nonformed Stool Consistency Soft Shiga Toxin 1 2 PENDING Stool Occult Blood Final 01/24/13- 1603 ML Stool Occult Blood Negative Ova Parasite Concen Full Final 01/25/13- 1608 ML Final Result No Ova Parasites seen by Ethyl Acetate Concentration No Cysts or Trophs Seen on Trichrome smear Cyclospora and Microsporidia testing not routinely performed with full Ova and Parasite analysis. O P: Giardia/Cryptospor Screen PENDING END OF REPORT * ML=Testing performed at Main Lab DEPARTMENT OF PATHOLOGY, [facility] [address] [place], [place] [address] Tavo Patel M.D. Director [facility] Permit #[id number] RUN DATE: 01/24/13 [facility] LAB LIVE PAGE 1 RUN TIME: 1603 [facility] [address] [place], [place] [address] Specimen Inquiry Name: MARIE SWEENEY : [address]: Noa Fernandez MD Acct: [id number] Unit: [id number] AGE: 73 Location: [facility] Re01/24/13 SEX: M Status: REG REF SPEC: [id number] VENU: 01/24/130 [facility] DR: Noa Fernandez MD REQ: [id number] RECD: 01/24/130767 STATUS: RES _ SOURCE: STOOL SPDESC: ORDERED: Hemoccult, Stool Culture, O P (Full), O P: Giar/Crypt QUERIES: Medent Number [id number] Procedure Result Verified Site Stool Culture PENDING Stool Specimen Description Final 01/24/13- 1545 ML Stool Color Brown Stool Form Nonformed Stool Consistency Soft Shiga Toxin 1 2 PENDING Stool Occult Blood Final 01/24/13- 1603 ML Stool Occult Blood Negative Ova Parasite Concen Full PENDING O P: Giardia/Cryptospor Screen PENDING END OF REPORT * ML=Testing performed at Main Lab DEPARTMENT OF PATHOLOGY, [facility] [address] [place], [place] [address] Tavo Patel M.D. Director [facility] Permit #[id number] RUN DATE: 01/26/13 [facility] LAB LIVE PAGE 1 RUN TIME: 9587 [facility] [address] [place], [place] [address] Specimen Inquiry Name: MARIE SWEENEY : [address]: Noa Fernandez MD Acct: [id number] Unit: [id number] AGE: 73 Location: [facility] Re01/24/13 SEX: M Status: REG REF SPEC: [id number] VENU: 01/24/13 [facility] DR: Noa Fernandez MD REQ: [id number] RECD: 01/24/13 STATUS: COMP _ SOURCE: STOOL SPDESC: ORDERED: Hemoccult, Stool Culture, O P (Full), O P: Claudy/Donaldo QUERIES: Medent Number [id number] Procedure Result Verified Site Stool Culture Final 01/26/13- 0959 ML Result No enteric pathogens isolated Testing for Salmonella, Shigella, Aeromonas, Plesiomonas, Yersinia and Campylobacter are included in a Stool Culture. Vibrio spp not routinely tested for in a stool culture. If testing is desired, please request specifically when placing test order. Sensitivities not routinely performed on stool isolates, as antibiotics may prolong the carriage rate of bacteria. Please contact the microbiology lab if sensitivities are required. Stool Specimen Description Final 01/24/13- 1545 ML Stool Color Brown Stool Form Nonformed Stool Consistency Soft Shiga Toxin 1 2 Final 01/26/13- 1354 ML Organism 1 Negative Shiga Toxin 1 2 Immunochromatographic Assay CONTINUED ON NEXT PAGE * ML=Testing performed at Main Lab DEPARTMENT OF PATHOLOGY, [facility] [address] [place], [place] [address] Tavo Patel M.D. Director [facility] Permit #[id number] RUN DATE: 01/26/13 [facility] LAB LIVE PAGE 2 RUN TIME: 9538 [facility] [address] [place], [place] [address] Specimen Inquiry Patient: MARIE SWEENEY [id number] (Continued) Specimen: [id number] Collected: 01/24/13 Received: 01/24/13214 (Continued) Procedure Result Verified Site Shiga Toxin 1 2 Final (continued) 01/26/13- 1354 Stool Occult Blood Final 01/24/13- 1603 ML Stool Occult Blood Negative Ova Parasite Concen Full Final 01/25/13- 1608 ML Final Result No Ova Parasites seen by Ethyl Acetate Concentration No Cysts or Trophs Seen on Trichrome smear Cyclospora and Microsporidia testing not routinely performed with full Ova and Parasite analysis. O P: Giardia/Cryptospor Screen Final 01/26/13- 1438 ML Organism 1 Neg Cryptosporidium/Giardia Giardia and cryptosporidium antigen testing performed by enzyme immunoassay. If patient is immunocompromised or has traveled to or is from a developing country, a full ova and parasite exam with microscopic (OPMIC) is recommended. All samples will be held one month in case full ova and parasite testing is requested. Contact the Microbiology Department at [phone]. TEST LIMITATIONS: As with all diagnostic procedures, the results obtained should be used in conjunction with other clinical information available the physician. Negative results can occur in samples containing antigen below lower limits of detection of the assay. The use of colonic washes, aspirates or other diluted sample types has not been established and could affect the performance of the assay. Stool samples contaminated with an oily or particulate base (eg. Barium, mineral oil etc.) could interfere with the test and are not recommended. END OF REPORT * ML=Testing performed at Main Lab DEPARTMENT OF PATHOLOGY, [address] [place] [address] Tavo Patel M.D. Director [facility] Permit #[id number] 82 Serum levels of PSA measured using the Tonny Dariel DXI Hybritech immunoassay should not be interpreted as absolute evidence of the presence or absence of disease. The PSA value should be used in conjunction with other pertinent clinical diagnostic procedures. A PSA value in the range of 0.1 to 0.6 ng/ml is indeterminate if being used as an indicator of recurrent or residual disease. The values obtained with different assay methods or kits cannot be used interchangeably. 83 Because ethnic data is not always readily available, this report includes an eGFR for both -Americans and non- Americans. The National Kidney Disease Education Program (NKDEP) does not endorse the use of the MDRD equation for patients that are not between the ages of 18 and 70, are , have extremes of body size, muscle mass, or nutritional status, or are non- or non-. According to the National Kidney Foundation, irrespective of diagnosis, the stage of the disease is based on the level of kidney function: Stage Description GFR(mL/min/1.73 m(2)) 1 Kidney damage with normal or decreased GFR 90 2 Kidney damage with mild decrease in GFR 60-89 3 Moderate decrease in GFR 30-59 4 Severe decrease in GFR 15-29 5 Kidney failure <15 (or dialysis) 84 Because ethnic data is not always readily available, this report includes an eGFR for both -Americans and non- Americans. The National Kidney Disease Education Program (NKDEP) does not endorse the use of the MDRD equation for patients that are not between the ages of 18 and 70, are , have extremes of body size, muscle mass, or nutritional status, or are non- or non-. According to the National Kidney Foundation, irrespective of diagnosis, the stage of the disease is based on the level of kidney function: Stage Description GFR(mL/min/1.73 m(2)) 1 Kidney damage with normal or decreased GFR 90 2 Kidney damage with mild decrease in GFR 60-89 3 Moderate decrease in GFR 30-59 4 Severe decrease in GFR 15-29 5 Kidney failure <15 (or dialysis) 85 Microalbuminuria in a random sample is defined as: Microalbumin/Creatinine ratio of 30-299 ug/mg. 86 A metabolite of Naproxen, O-desmethylnaproxen, has been shown to interfere with the Jendrassik-Redcrest method for measuring total bilirubin. Samples from patients who have taken Naproxen have shown spurious elevation in total bilirubin levels. 87 Because ethnic data is not always readily available, this report includes an eGFR for both -Americans and non- Americans. The National Kidney Disease Education Program (NKDEP) does not endorse the use of the MDRD equation for patients that are not between the ages of 18 and 70, are , have extremes of body size, muscle mass, or nutritional status, or are non- or non-. According to the National Kidney Foundation, irrespective of diagnosis, the stage of the disease is based on the level of kidney function: Stage Description GFR(mL/min/1.73 m(2)) 1 Kidney damage with normal or decreased GFR 90 2 Kidney damage with mild decrease in GFR 60-89 3 Moderate decrease in GFR 30-59 4 Severe decrease in GFR 15-29 5 Kidney failure <15 (or dialysis) 88 Desirable: Less than 200 MG/DL Borderline-High Risk: 200-239 MG/DL High-Risk: 240 MG/DL and over 89 HDL Interpretation: Undesirable: High Risk: Less than 40 MG/DL Desirable: Low Risk: Greater than 60 MG/DL 90 Lymphopenia % 91 CHOLESTEROL INTERPRETATION: Desirable: Less than 200 MG/DL Borderline-High Risk: 200-239 MG/DL High-Risk: 240 MG/DL and over 92 HDL INTERPRETATION: Undesirable: High Risk: Less than 40 MG/DL Desirable: Low Risk: Greater than 60 MG/DL 93 LDL INTERPRETATION: Low Risk Optimal Level: LDL Less than 100 MG/DL Near or Above Optimal: LDL 100-129 MG/DL Borderline High Risk: LDL 130-159 MG/DL High Risk: LDL 160-189 MG/DL Very High Risk: LDL Greater than 189 MG/DL 94 MICROALBUMINURIA IN A RANDOM SAMPLE IS DEFINED : MICROALBUMIN/CREATININE RATIO OF 30-299 ug/mg. . 95 Anion gap measurement may be of limited value in the presence of any alkalosis, especially in a combined acid base disorder. . 96 A metabolite of Naproxen, O-desmethylnaproxen, has been shown to interfere with the Jendrassik-Redcrest method for measuring total bilirubin. Samples from patients who have taken Naproxen have shown spurious elevation in total bilirubin levels. 97 Because ethnic data is not always readily available, this report includes an eGFR for both -Americans and non- Americans. The National Kidney Disease Education Program (NKDEP) does not endorse the use of the MDRD equation for patients that are not between the ages of 18 and 70, are , have extremes of body size, muscle mass, or nutritional status, or are non- or non-. According to the National Kidney Foundation, irrespective of diagnosis, the stage of the disease is based on the level of kidney function: Stage Description GFR(mL/min/1.73 m(2)) 1 Kidney damage with normal or decreased GFR 90 2 Kidney damage with mild decrease in GFR 60-89 3 Moderate decrease in GFR 30-59 4 Severe decrease in GFR 15-29 5 Kidney failure <15 (or dialysis) 98 Anion gap measurement may be of limited value in the presence of any alkalosis, especially in a combined acid base disorder. . 99 A metabolite of Naproxen, O-desmethylnaproxen, has been shown to interfere with the Jendrassik-Redcrest method for measuring total bilirubin. Samples from patients who have taken Naproxen have shown spurious elevation in total bilirubin levels. 100 Because ethnic data is not always readily available, this report includes an eGFR for both -Americans and non- Americans. The National Kidney Disease Education Program (NKDEP) does not endorse the use of the MDRD equation for patients that are not between the ages of 18 and 70, are , have extremes of body size, muscle mass, or nutritional status, or are non- or non-. According to the National Kidney Foundation, irrespective of diagnosis, the stage of the disease is based on the level of kidney function: Stage Description GFR(mL/min/1.73 m(2)) 1 Kidney damage with normal or decreased GFR 90 2 Kidney damage with mild decrease in GFR 60-89 3 Moderate decrease in GFR 30-59 4 Severe decrease in GFR 15-29 5 Kidney failure <15 (or dialysis) 101 New Reference Range and Interpretation effective 01/26/2002 TnI (ng/ml) INTERPRETATION Less Than 0.06 ng/mL NOT SUPPORTIVE OF DIAGNOSIS OF MO 0.06 - 0.50 ng/ml INDETERMINATE: SUGGEST SERIAL STUDIES IF CLINICALLY INDICATED. Greater than 0.5 ng/mL CONSISTENT WITH DIAGNOSIS OF MO . 102 INTERPRETATION %CK-MB < 5% NOT SUPPORTIVE OF DIAGNOSIS OF MO 5 - <10% INDETERMINATE; SUGGEST SERIAL STUDIES IF CLINICALLY INDICATED 10% OR > CONSISTENT WITH DIAGNOSIS OF MO . 103 Anion gap measurement may be of limited value in the presence of any alkalosis, especially in a combined acid base disorder. . 104 A metabolite of Naproxen, O-desmethylnaproxen, has been shown to interfere with the Jendrassik-Redcrest method for measuring total bilirubin. Samples from patients who have taken Naproxen have shown spurious elevation in total bilirubin levels. 105 Because ethnic data is not always readily available, this report includes an eGFR for both -Americans and non- Americans. The National Kidney Disease Education Program (NKDEP) does not endorse the use of the MDRD equation for patients that are not between the ages of 18 and 70, are , have extremes of body size, muscle mass, or nutritional status, or are non- or non-. According to the National Kidney Foundation, irrespective of diagnosis, the stage of the disease is based on the level of kidney function: Stage Description GFR(mL/min/1.73 m(2)) 1 Kidney damage with normal or decreased GFR 90 2 Kidney damage with mild decrease in GFR 60-89 3 Moderate decrease in GFR 30-59 4 Severe decrease in GFR 15-29 5 Kidney failure <15 (or dialysis) 106 CHOLESTEROL INTERPRETATION: Desirable: Less than 200 MG/DL Borderline-High Risk: 200-239 MG/DL High-Risk: 240 MG/DL and over 107 HDL INTERPRETATION: Undesirable: High Risk: Less than 40 MG/DL Desirable: Low Risk: Greater than 60 MG/DL 108 LDL INTERPRETATION: Low Risk Optimal Level: LDL Less than 100 MG/DL Near or Above Optimal: LDL 100-129 MG/DL Borderline High Risk: LDL 130-159 MG/DL High Risk: LDL 160-189 MG/DL Very High Risk: LDL Greater than 189 MG/DL 109 MICROALBUMINURIA IN A RANDOM SAMPLE IS DEFINED : MICROALBUMIN/CREATININE RATIO OF 30-299 ug/mg. . 110 CHOLESTEROL INTERPRETATION: Desirable: Less than 200 MG/DL Borderline-High Risk: 200-239 MG/DL High-Risk: 240 MG/DL and over 111 HDL INTERPRETATION: Undesirable: High Risk: Less than 40 MG/DL Desirable: Low Risk: Greater than 60 MG/DL 112 LDL INTERPRETATION: Low Risk Optimal Level: LDL Less than 100 MG/DL Near or Above Optimal: LDL 100-129 MG/DL Borderline High Risk: LDL 130-159 MG/DL High Risk: LDL 160-189 MG/DL Very High Risk: LDL Greater than 189 MG/DL 113 CHOLESTEROL INTERPRETATION: Desirable: Less than 200 MG/DL Borderline-High Risk: 200-239 MG/DL High-Risk: 240 MG/DL and over 114 HDL INTERPRETATION: Undesirable: High Risk: Less than 40 MG/DL Desirable: Low Risk: Greater than 60 MG/DL 115 LDL INTERPRETATION: Low Risk Optimal Level: LDL Less than 100 MG/DL Near or Above Optimal: LDL 100-129 MG/DL Borderline High Risk: LDL 130-159 MG/DL High Risk: LDL 160-189 MG/DL Very High Risk: LDL Greater than 189 MG/DL 116 A metabolite of Naproxen, O-desmethylnaproxen, has been shown to interfere with the Jendrassik-Norma method for measuring total bilirubin. Samples from patients who have taken Naproxen have shown spurious elevation in total bilirubin levels. 117 Please note updated reference range, effective 11/13/09 118 NORMAL ELECTROPHORETIC PATTERN. 119 COMMENTS: N 120 Lymphopenia % 121 Anion gap measurement may be of limited value in the presence of any alkalosis, especially in a combined acid base disorder. . 122 Note change in reference range as of 12/14/07. The change was based on recommendations from the [place] [employer]. 123 A metabolite of Naproxen, O-desmethylnaproxen, has been shown to interfere with the Jendrassik-Norma method for measuring total bilirubin. Samples from patients who have taken Naproxen have shown spurious elevation in total bilirubin levels. 124 Because ethnic data is not always readily available, this report includes an eGFR for both -Americans and non- Americans. The National Kidney Disease Education Program (NKDEP) does not endorse the use of the MDRD equation for patients that are not between the ages of 18 and 70, are , have extremes of body size, muscle mass, or nutritional status, or are non- or non-. According to the National Kidney Foundation, irrespective of diagnosis, the stage of the disease is based on the level of kidney function: Stage Description GFR(mL/min/1.73 m(2)) 1 Kidney damage with normal or decreased GFR 90 2 Kidney damage with mild decrease in GFR 60-89 3 Moderate decrease in GFR 30-59 4 Severe decrease in GFR 15-29 5 Kidney failure <15 (or dialysis) 125 New Reference Range and Interpretation effective 01/26/2002 TnI (ng/ml) INTERPRETATION Less Than 0.06 ng/mL NOT SUPPORTIVE OF DIAGNOSIS OF [place] 0.06 - 0.50 ng/ml INDETERMINATE: SUGGEST SERIAL STUDIES IF CLINICALLY INDICATED. Greater than 0.5 ng/mL CONSISTENT WITH DIAGNOSIS OF MO . 126 Recommended INR for Patients on Oral Anticoagulants Prophylaxis 2.0 - 3.0 Treatment of thrombosis 2.0 - 3.0 Prevention of embolism 2.0 - 3.0 Prevention of embolism from prosthetic heart valves 2.5 - 3.5 127 DIAGNOSIS,TREATMENT,AND THERAPY MUST BE BASED ON THE INR VALUE ALONE. 128 * SERUM LEVELS OF PSA MEASURED USING THE TONNY [employer]ent ACCESS HYBRITECH IMMUNOASSAY SHOULD NOT BE INTERPRETED ABSOLUTE EVIDENCE OF THE PRESENCE OR ABSENCE OF DISEASE. THE PSA VALUE SHOULD BE USED IN CONJUNCTION WITH OTHER PERTINENT CLINICAL DIAGNOSTIC PROCEDURES. 129 Anion gap measurement may be of limited value in the presence of any alkalosis, especially in a combined acid base disorder. . 130 Classification: Desirable . 131 CALCULATED LDL APPROXIMATES THE VALUE OF A DIRECT LDL MEASUREMENT. Classification: Optimal Level . 132 THERAPEUTIC TARGET FOR THE TREATMENT OF DIABETES MELLITUS PATIENTS IS <7% HBA1C, AND IN SELECTIVE PATIENTS <6.0%. PLEASE REFER TO [employer] DIABETIC CARE GUIDELINES FOR FURTHER INFORMATION. Procedures Date CPT Code Description Status 02/22/2018 14639 EKG Tracing & Interpretation Completed 02/07/2018 57416 ECHO Transthorasic Realtime 2D W Doppler & Color Flow Completed Hosp 02/07/2018 33423 ECHO Transthorasic Realtime 2D W Doppler & Color Flow Completed Hosp 11/22/2017 Diabetic Retinal Eye Exam Completed 09/29/2017 91738 Inject/Drain Joint/Bursa Small W/O US Completed 09/29/2017 Excise Biopsy Bone Deep Completed 09/29/2017 37941 Inject/Drain Joint/Bursa Small W/O US Completed 09/29/201734221 Excise Biopsy Bone Deep Completed 04/12/2017 Diabetic Retinal Eye Exam Completed 02/23/2017 71076 EKG Tracing & Interpretation Completed 10/19/2016 Diabetic Retinal Eye Exam Completed 05/05/2016 32403 Inject Tendon Sheath Or Ligament Aponeurosis Eg Plantar Completed Fascia 04/08/2016 Diabetic Retinal Eye Exam Completed 11/10/2015 74087 Cardiac Cath,LT Hrtmincl Intraprocedural Ink LT Completed Ventricul Mammary 10/23/2015 10557 Stress Test Completed 10/23/2015 31301 Myocardial Perfusion Imaging Tomographic (Spect) Completed Multiple Studies 10/21/2015 63422 ECHO Transthoracic, Real-Time 2D With Doppler And Color Completed Flow 10/07/2015 Diabetic Retinal Eye Exam Completed 09/26/2015 76056 EKG Tracing & Interpretation Completed 09/25/2015 99791 Inject Tendon Sheath Or Ligament Aponeurosis Eg Plantar Completed Fascia 09/23/2015 79329 Carotid Doppler,Bilateral Completed 09/23/2015 57865 Carotid Doppler,Bilateral Completed 02/06/2015 42000 Inject Tendon Sheath Or Ligament Aponeurosis Eg Plantar Completed Fascia 10/11/2014 78039 EKG Tracing & Interpretation Completed 10/07/2014 Colonoscopy Completed 09/19/2014 Diabetic Retinal Eye Exam Completed 03/12/2014 Diabetic Retinal Eye Exam Completed 01/17/2014 70550 Rad Exam; Wrist, Comp, Min 3 Views Completed 01/17/2014 12762 Inject Tendon Sheath Or Ligament Aponeurosis Eg Plantar Completed Fascia 08/17/2013 43063 Carotid Doppler,Bilateral Completed 08/14/2013 10501 ECHO Transthoracic, Real-Time 2D With Doppler And Color Completed Flow 08/08/2013 57098 Myocardial Perfusion Imaging Tomographic (Spect) Completed Multiple Studies 08/08/2013 83887 Stress Test Completed 02/18/2012 Diabetic Retinal Eye Exam Completed 08/20/2011 Diabetic Retinal Eye Exam Completed 04/12/2011 01814 EKG Tracing & Interpretation Completed 09/29/2009 86461 EKG Tracing & Interpretation Completed 08/19/2008 64037 EKG Tracing & Interpretation Completed 03/08/2007 95934 EKG Tracing & Interpretation Completed 05/03/2006 77355 Pulse Doppler & Continuous Wave Completed 05/03/2006 36662 Echocardiogram Completed 05/03/2006 03505 Echocardiogram Completed 05/03/2006 08406 Color Doppler Completed 05/03/2006 49058 Color Doppler Completed Encounters Type Date Location Provider CPT E/M Dx Office Visit 02/10/2018 [facility], [place], [address]10 J15.9 9:02a Hospitalists SUPERVISOR CHANNEL PROCESS I47.2 I25.10 I10 I50.32 E11.9 M10.00 Office Visit 02/09/2018 9:01a [facility], [place], [address] J15.9 Hospitalists SUPERVISOR CHANNEL PROCESS A41.9 I47.2 E11.9 I25.10 I10 I50.32 E87.1 E80.7 Office Visit 02/08/2018 9:01a [facility], [place], 57358 J15.9 Hospitalists SUPERVISOR CHANNEL PROCESS A41.9 I47.2 R94.31 E11.9 I25.10 I10 I50.32 Office Visit 02/07/2018 10:36a [facility] Jerman Russell, 90132 I47.2 Yesenia Ravi I35.0 J18.9 R94.31 Office Visit 02/07/2018 9:01a [facility], [place], 22639 J15.9 Hospitalists SUPERVISOR CHANNEL PROCESS A41.9 I47.2 E11.9 I25.10 I10 E87.1 E80.7 Office Visit 02/06/2018 9:00a [facility] ELIZABETH Pacheco [address]88 J18.9 Ass, Hospitalists I10 E78.5 E11.9 Z79.4 Office Visit 02/06/2018 3:30p [facility] [place] [address] J18.9 - [address] Office Visit 11/07/2017 1:20p [facility] Noa Fernandez 41492 Z00.00 - Alf Ravi I10 E11.21 E78.5 R19.5 Office Visit 10/07/2017 8:45a [facility] [place] [address] M79.645 C.M.A. Z48.02 Office Visit 09/28/2017 [facility] [address] M79.645 Infectious Diseases Breonna Washburn Office Visit 09/27/2017 2:40p [facility] Ladarius Garcia, 32782 M86.242 - Alf Ravi,FACP Office Visit 09/12/2017 3:00p [facility] Ladarius Garcia, 18126 E11.9 - [place] Gianni Ravi,FACP M01.x42 M10.9 Office Visit 05/02/2017 2:00p [facility] - Noa Fernandez 76129 I10 Alf Ravi Office Visit 02/23/2017 11:45a [facility] Russell 64492 I10 Yesenia Ravi I25.118 I35.0 Office Visit 12/15/2016 3:30p [facility] Noa Fernandez 93196 R07.89 - Tbdavid Archer M.D. Office Visit 11/04/2016 2:40p [facility] Noa Fernandez 06370 Z00.00 - Alf Ravi I10 Office Visit 08/23/2016 2:00p [facility] Noa Fernandez M.D. 10838 I10 - Alf R01.1 R19.4 Office Visit 04/21/2016 1:45p [facility] Patricia Mata, 78451 G47.33 [facility] HITESH RN, POST DOCTORAL FELLOW- Office Visit 03/25/2016 10:40a [facility] Noa Fernandez 93150 I10 - Alf Ravi Office Visit 03/04/2016 10:00a [facility] Noa Fernandez 23164 Jacquelyn0 - Alf Ravi L40.8 Office Visit 01/30/2016 10:00a [facility] Jerman Russell 56498 I10 Breonna I25.118 I35.0 Office Visit 11/17/2015 9:00a [facility] ELIZABETH Giron 33554ZNR I10 I25.118 I35.0 Office Visit 10/24/2015 3:45p [facility] Russell 77662 I25.118 Yesenia Ravi I35.0 Office Visit 09/26/2015 9:45a [facility] Jerman Russell, 64731 I10 MVero I25.118 R01.1 Office Visit 09/25/2015 3:20p [facility] Griselda Sofía, 82839 M65.4 C.MNoelle RPA-C Office Visit 03/03/2015 9:40a [facility] Noa Fernandez 18907 I10 - Alf Ravi R10.31 Office Visit 01/09/2015 1:00p [facility] [place] [address] 327.23 [facility] 278.00 Office Visit 12/13/2014 9:20a [facility] [place] [address] 789.03 - [place] Office Visit 10/11/2014 2:30p [facility] Jerman Russell, 28143 401.1 Yesenia Ravi 414.01 Office Visit 10/09/2014 2:00p [facility] [place] [address] V72.84 [place] 366.9 250.00 401.1 327.23 414.01 Office Visit 10/09/2014 3:45p [facility] [place] [address] 327.23 [facility] 278.00 Office Visit 08/22/2014 4:00p [facility] Noa Fernandez 56617 V70.0 - Alf Ravi 401.1 250.00 327.23 Office Visit 08/07/2014 2:30p [facility] [place] [address] 843.8 - [address] Office Visit 02/27/2014 10:40a [facility] Noa Fernandez 45368 401.1 - Alf Ravi Office Visit 01/17/2014 1:15p [facility] [place], 55183 727.04 Of Fiona Ravi Office Visit 09/06/2013 9:30a [facility] J[facility] Russell 69407 414.01 Yesenia Ravi 786.05 Office Visit 08/17/2013 3:40p [facility] Noa Fernandez, 82822 V70.0 - [place] M.DGracie 724.3 414.01 250.02 Office Visit 08/10/2013 1:30p [facility] Nia Bishop M.D. 63386 401.1 [facility] 786.51 414.01 785.2 785.9 Office Visit 01/18/2013 8:40a [facility] Noa Fernandez, 56775 401.1 - [place] M.D. 787.91 V04.81 Office Visit 10/10/2012 11:00a [facility] Philomena Jay M.D., 50695 786.2 - [place] FACP Office Visit 08/11/2012 1:00p [facility] Noa Fernandez 46909 401.1 - [place] M.D. 784.0 Office Visit 05/02/2012 3:00p [facility] Noa Fernandez 64055 401.1 - [place] M.D. 784.0 Office Visit 04/07/2012 9:40a [facility] Noa Fernandez 55815 V70.0 - [place] M.D. 401.1 785.9 Office Visit 03/21/2012 9:00a [facility] Noa Fernandez 68699 401.1 - [place] M.D. Office Visit 02/28/2012 2:20p [facility] Marsha Kline, N.P. 57149 380.4 - [place] Office Visit 02/18/2012 1:00p [facility] Noa Fernandez 78111 401.1 - [place] M.D. 724.5 Office Visit 01/03/2012 2:40p [facility] Noa Fernandez 10036 V04.81 - [place] M.D. 401.1 238.2 Office Visit 11/18/2011 2:40p [facility] Noa Fernandez 83523 401.1 - [place] M.D. Office Visit 10/07/2011 11:00a [facility] Noa Fernandez 31601 401.1 - [place] M.D. Office Visit 04/21/2011 1:00p DO Not Use Philomena Jay M.D., 11227 786.2 [facility] FACP Office Visit 08/19/2010 2:45p DO Not Use Marsha Kline, N.P. 11434 466.0 [employer] Office Visit 08/04/2010 11:30a DO Not Use Noa Cotton, 80218 401.1 [employer] M.D. 272.2 Office Visit 04/02/2010 10:15a DO Not Use Noa Cotton, 67293 682.0 [facility] M.D. 401.1 250.00 Office Visit 01/08/2010 9:00a DO Not Use [facility] A [address] 401.1 V04.81 Office Visit 10/07/2009 11:30a DO Not Use Marsha Varn, N.P. 17380 466.0 [facility] Office Visit 09/29/2009 1:15p DO Not Use Noa Cotton, 52296 V70.0 [employer] M.D. 785.9 723.1 600.00 401.1 Office Visit 06/10/2009 1:30p DO Not Use RadAlla mueller, 42163 250.00 [employer] M.D. 401.1 272.0 V04.81 Office Visit 02/18/2009 2:30p DO Not Use RadAlla mueller, 73776 250.02 [facility] M.D. 753.10 V04.81 Office Visit 11/15/2008 3:00p DO Not Use Alla Cassidy, 93911 250.00 [facility] M.D. 401.1 Office Visit 09/06/2008 3:00p DO Not Use [facility] Marsha Kline, 08138 465.9 N.P. 462 Office Visit 08/19/2008 10:45a DO Not Use Alla Cassidy, 15620 V70.0 [employer] M.D. 250.00 272.0 719.45 401.1 Office Visit 04/29/2008 1:30p DO Not Use RadAlla mueller, 05079 250.02 [facility] M.D. 401.1 Office Visit 03/27/2008 10:45a DO Not Use Marsha Lormartell, 50675 461.9 [facility] N.P. Office Visit 03/05/2008 3:00p DO Not Use RadAlla mueller, 46968 250.02 [facility] M.D. 401.1 Office Visit 12/12/2007 3:00p DO Not Use RadAlla mueller, 20887 715.94 [facility] M.D. 250.02 401.1 Office Visit 10/17/2007 9:45a DO Not Use RadAlla mueller, 70582 250.00 [facility] M.D. 401.1 Office Visit 10/12/2007 12:15p DO Not Use [facility] Philomena Misty, 89517 466.0 M.D., FACP Office Visit 08/16/2007 2:45p DO Not Use [facility] Alla Cassidy, 22389 V70.0 M.D. 250.00 401.1 356.9 V05.8 Office Visit 05/02/2007 2:15p DO Not Use RadAlla mueller, 06688 250.00 [facility] M.D. 401.1 Office Visit 03/29/2007 3:15p DO Not Use RadAlla mueller, 05503 250.02 [employer] M.D. 401.1 719.46 Office Visit 03/08/2007 2:30p DO Not Use Alla Cassidy, 86306 250.00 Super[employer] [facility] M.D. 401.1 Plan of Care Future Appointment(s):04/05/2018 2:45 pm - Jerman Russell M.D. at [facility]03/31/2018 11:00 am - Jerman Russell M.D. at [facility]04/27/2018 10:40 am - Noa Fernandez M.D. 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
--- OUTSIDE RECORDS SUMMARY | 2018-02-24 21:27 | XMS REPORT ---
:1940 External Reference #:[id number] Author Organization [email or web address] Address [address] [place] [address] [place] [address] Phone [phone] Care Team Providers Name Role Phone Noa Fernandez MD Primary Care Physician Unavailable Payers Type Date Identification Numbers Payment Provider Subscriber Medicare Primary Effective: Policy Number: Medicare Marie Sweeney 2004 [id number] PayID: [id number] [address] [place] [address] Medigap Part B Policy Number: [id number] [facility] Marie Sweeney PayID: [id number] [address] [place] [address] Advance Directives Type Date Description Status Comment Other Directive 11/18/2013 Health Care Proxy Current and Verified Problems Date Description Provider Status Onset: 02/04/2010 Type 2 diabetes mellitus Noa Fernandez M.D. Active Onset: 02/04/2010 Benign essential hypertension Noa Fernandez M.D. Active Onset: 09/06/2011 Coronary arteriosclerosis Noa Fernandez M.D. 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 needed Glucocom Blood 04/05 Active Kit W/Device 1unit for use Noa Glucose Monitoring /2015 s once daily Cotton, System - meter M.D. per plan Dx E11.9, Z79.4 Pen Loomis 07/08" 10/15 Active Misc 31G X 5 [...] Proxetil /0000 twice daily for 10 days Tessalon Perles Active Capsules 100mg 1 bid as Unknown /0000 needed Metoprolol Active Tablets 25mg 1 by mouth [...] Tablets 100mg 20tab 1 tab by Jorden Powell s mouth MD Shira - twice a [...] mouth three Misty, 01/18/2013 times a day M.DGracie, FACP Pen [place] Mini 09/20/2012 Hx 360unit for use qid dx Noa 31GA. - s 250.00 Jim, 10/16/2015 M.D. Aldactazide 05/30/2012 Hx Tablets 25-2 90tabs 1 tab PO qd Noa - 5mg Adkins, 08/09/2012 M.D. Avapro 05/03/2012 Hx Tablets 300m 90tabs 1 by mouth once Noa - g daily Adkins, 12/26/2012 M.D. Hydrochlorothiazi 05/03/2012 Hx Tablets 25mg 90tabs 1 po qd Noa de - Adkins, 05/30/2012 M.D. Labetalol HCL 04/07/2012 Hx Tablets 100m 180tabs 2 po bid 401.1 Noa - g Adkins, 05/03/2012 M.D. Metoprolol 03/21/2012 Hx Tablets ER 50mg 30tabs take 1 PO qd 401.1 Noa Succinate ER - 24HR Adkins, 04/07/2012 M.D. Metoprolol 02/18/2012 Hx Tablets ER 25mg 30tabs 1 po qd 401.1 Noa Succinate ER - 24HR Adkins, 03/21/2012 M.D. Viagra 01/13/2012 Hx Tablets 50mg 18tabs take 1 or 2 Noa - tablets once Adkins, 11/11/2013 daily as needed M.D. Fluticasone 04/21/2011 Hx Suspension 50mc 1bottle 1 spray each 786.2 Philomena Propionate - g/Ac nostril in am [facility], 10/07/2011 t MVero, FACP Azithromycin 04/21/2011 Hx Tablets 250m 6tabs two tabs day 786.2 Philomena - g one, one daily Misty, 10/05/2011 till gone MVero, FACP Zithromax Z-Dani 08/19/2010 Hx Tablets 250m 1Pack two po Noa - g initially then Adkins, 08/29/2010 one po daily M.D. Lipitor 08/04/2010 Hx Tablets 20mg 90tabs 1 by mouth once Noa - daily Adkins, 08/17/2013 M.D. Cephalexin 04/02/2010 Hx Capsules 500m 28caps 1 tablet 4 682.0 Noa - g times daily for Adkins, 08/04/2010 7 days M.D. Losartan 12/16/2009 Hx Tablets 100- 90tabs take 1 tablet Noa Potassium/Hydroch - 25mg by mouth every Adkins, lorothiazide 05/03/2012 day MVero Levemir 09/25/2009 Hx Solution 100U 23pens 52 units Noa - nit/ subcutaneously Adkins, 08/06/2010 ML at bedtime MVero Diovan HCT 09/25/2009 Hx Tablets 320- 90tabs 1 tablet daily Noa - 25mg Adkins, 12/16/2009 M.Clemente Felodipine 09/25/2009 Hx Tablets ER 10mg 90tabs 1 tablet by Noa - 24HR mouth once Adkins, 04/12/2011 daily M.DGracie Lipitor 09/25/2009 Hx Tablets 10mg 90tabs 1 tablet every Noa - night Adkins, 08/04/2010 M.DGracie Asa 09/25/2009 Hx 81mg 30units 1 tablet daily Noa - Adkins, 09/28/2009 M.Clemente Econazole Nitrate 09/25/2009 Hx Cream 1% 45g apply to Noa - affected areas Adkins, 01/08/2010 bid x 2-3 wks M.DGracie Hydrocortisone 09/25/2009 Hx Cream 0.2% 30g topical twice Noa Valerate - daily to area Adkins, 01/08/2010 as needed M.DGracie Viagra 09/25/2009 Hx Tablets 50mg 18tabs Take 1 Or 2 Noa - Tablets Once Adkins, 04/12/2011 Daily as Needed M.DGracie Novolog Penfill Hx Solution 100U 2Box use as directed Miriam tinsley/ S. 03/07/2007 PATY Browne M.D. Novolog Penfill Hx Solution 100U 10units Use as Directed Ladarius tinsley/ three times Clemente Garcia, 10/13/2009 ML daily M.DGracie,FACP Felodipine ER Hx Tablets ER 2.5m 30tabs 1 PO qd Ladarius - 24HR ginny Garcia, 09/25/2009 M.DGracie,FACP Metformin HCL Hx Tablets 1000 180tabs take 1 tablet Noa - mg by mouth twice Adkins, 08/07/2013 daily M.DGracie Levitra Hx Tablets Unknown - 10/07/2011 Warfarin Sodium Hx Tablets 10mg 1 po qd Unknown - 02/18/2012 Levemir Flexpen Hx Solution 100U inject 66 units Unknown - Pen-Inject nit/ under the skin 09/27/2015 ML at bedtime Eplerenone Hx Tablets 25mg 180tabs take 2 tablets Noa - by mouth every Cotton, 08/23/2016 day M.D. Cephalexin Hx Capsules 500m Gretta Ann MD 09/23/2017 Medications Administered in Office Medication Date Status [...] CPT Code Status Date Vaccine Lot # [id number] Given 02/02/2018 Fluzone High Dose 46045 Given 01/03/2018 Fluzone High Dose Q2039 Given 01/20/2016 Flu Vaccine NOS 31529 Given 01/27/2015 Fluzone High Dose Q2037 Given 10/09/2014 Fluvirin Im 3Yrs And Older 74255 Given 09/03/2014 Pneumococcal Conjugate Vaccine 13 Valent For [id number] Intramuscular Use 22346 Given 01/18/2013 Flu Vaccine Split Virus Preservative Free For [id number] Indiv 3Yr Older Q2038 Given 01/03/2012 Fluzone Vaccine [id number] 96032 Given 01/08/2010 Influenza Virus 3Yrs & Over 61832 Given 06/10/2009 Influenza Virus Vaccine, Pandemic Formulation 68650 Given 02/18/2009 Influenza Virus 3Yrs & Over 78124 Given 08/16/2007 Zoster (Zostavax) Vital Signs Date Vital Result Comment 02/14/2018 Height 70 inches 5'10" Weight 239.00 [...] Test Date Test Result H/L Range Note Sputum Culture & 02/06/2018 Sputum Culture SEE RESULT BELOW 1 Sensitiv Gram Stain CBC Auto Diff 02/06/2018 [...] Blood Cells % 0 Laboratory test finding 02/06/2018 Lactic Acid 0.9 mmol/L 0.5-2.0 2 C Reactive Protein 139.24 mg/L High <8.01 Troponin-I (TnI) 0.06 ng/mL High <0.04 3 Comp Metabolic Panel 02/06/2018 Sodium 129 mmol/L [...] 76.5 >60 4 Laboratory test finding 02/06/2018 Procalcitonin 0.8 ng/mL High <0.6 5 Blood Culture SEE RESULT BELOW 6 Rapid Influenza A & B 02/05/2018 Influenza A Molecular NEGATIVE Negative 7 Molecular Influenza B Molecular NEGATIVE Negative Laboratory test 02/05/2018 Rapid Influenza A B SEE RESULT BELOW 8 finding Antigen Laboratory test 02/05/2018 Rapid Strep Negative Negative 9 finding Molecular Laboratory test 02/05/2018 Rapid Strep A SEE RESULT BELOW 10 finding Laboratory test 01/05/2018 Surgical Pathology SEE RESULT BELOW 11, 12 finding Laboratory test 09/29/2017 Surgical Pathology SEE RESULT BELOW 13, 14 finding Wound Culture/Sensi 09/29/2017 Wound/Misc SEE RESULT BELOW 15 Culture-Gram Stain Laboratory test 09/29/2017 Anaerobic Culture SEE RESULT BELOW 16 finding Laboratory test 09/23/2017 C Reactive Protein 1.50 mg/L < 5.00 17 finding Erythrocyte Sed Rate 14 mm/Hr 0-40 CBC Auto Diff 09/23/2017 White Blood Count [...] Blood Cells % 0 Laboratory test finding 09/12/2017 Uric Acid 6.8 [...] mg/dL 23 LDL Cholesterol 58 mg/dL 24 Comp Metabolic Panel 09/01/2017 Sodium 138 mmol/L [...] Egfr Non- 65.4 >60 Egfr 84.1 >60 25 Urine Microalbumin Random 09/01/2017 Ur Microalbumin (mg/L) 187.4 mg/L Urine Creatinine 126.02 mg/dL Urine Microalbumin/Creatinine 148.7 ug/mg High <31 Liver Function Panel 09/01/2017 Direct Bilirubin 0.30 mg/dL High 0.03- 0.18 Indirect Bilirubin 1.3 mg/dL High 0.3-1.0 Laboratory test 09/01/2017 Vitamin B12 554 pg/mL 180-914 26 finding Laboratory test 09/01/2017 PSA Diagnostic 0.596 ng/mL 0-4.0 27 finding Laboratory test 12/15/2016 D Dimer [...] -2.0-2.0 37, 38 Hco3 Arterial 26.7 mmol/L 19- 37 Arterial Blood Gas 11/10/2015 PH Arterial 7.38 7.35-7.45 Pco2 Arterial 50 mmHg High 35-45 O2 Saturation Arterial 76.7 % Low 95-98 Base Excess Arterial 3.6 High -2.0-2.0 39 Hco3 Arterial 27.2 mmol/L - Po2 Arterial 43 mmHg Low 80-100 Venous Blood Gas 11/10/2015 Venous Blood pH 7.38 7.33-7.43 Venous Pco2 50 mmHg 41-51 Venous Po2 43 mmHg 35-45 Venous O2 Saturation 76.7 % 70-80 Venous Blood Base Excess 3.6 0-4 40 Venous Bicarbonate Hco3 27.2 mmol/L - Venous Blood Gas 11/10/2015 Venous Blood pH 7.37 7.33-7.43 Venous Pco2 48 mmHg 41-51 Venous Po2 41 mmHg 35-45 Venous O2 Saturation 77.2 % 70-80 Venous Blood Base Excess 1.8 0-4 41 Venous Bicarbonate Hco3 25.8 mmol/L - Pre Cath Panel 10/30/2015 Partial Thrombo Time [...] (Thyroid Stim Horm) 1.79 ?IU/mL 0.34-5.60 49 CBC No Diff 08/26/2015 White Blood Count [...] 150-450 Mean Platelet Volume 9 um3 7.4-10.4 Laboratory test finding 08/26/2015 Vitamin B12 344 pg/mL 180-914 50 CBC Auto Diff 03/06/2015 White Blood Count [...] 53 Urine Microalbumin/Creatinine 19.7 ug/mg <31 53 CBC Auto Diff 12/17/2014 White Blood Count [...] Nucleated Red Blood Cells % 0.1 53 Comp Metabolic Panel 12/17/2014 Sodium 136 [...] >60 53 Egfr 91.6 >60 53, 54 Laboratory test finding 12/17/2014 Lipase 22 U/L 11.0-82.0 53, 55 Lipid Profile (Trig/Chol/HDL) 12/17/2014 Triglycerides 83 mg/dL 53, 56 Cholesterol 120 mg/dL 53, 57 HDL Cholesterol 49.3 mg/dL 53, 58 LDL Cholesterol 54 mg/dL 53, 59 Laboratory test finding 12/17/2014 PSA Diagnostic 0.588 ng/mL 0-4.0 60 Urine Microalbumin Random 12/13/2014 Ur Microalbumin (mg/L) 18.0 mg/L Urine Creatinine 40.12 mg/dL Urine Microalbumin/Creatinine 44.8 ug/mg High <31 Ua Routine 12/13/2014 Ua Specific [place] 1.005 Ua PH 5 Ua Color yellow Ua Appera clear Ua WBC negative Ua Protein negative Ua Glucose 2000+++ Ua Ketones negative Ua Bilirubin negative Ua Urobilinogen normal Ua Nitrite negative Ua Occult Blood negative Laboratory test 10/16/2014 Point of Care 253 mg/dL High 74-106 61 finding Glucose Laboratory test 10/16/2014 Point of Care 263 mg/dL High 74-106 62 finding Glucose Laboratory test 10/07/2014 Surgical Pathology SEE RESULT BELOW 63 finding Liver Function Panel 01/31/2014 Direct Bilirubin 0.30 mg/dL High 0.03- 0.18 64 Indirect Bilirubin 1.5 mg/dL High 0.3-1.0 64 Lipid Profile (Trig/Chol/HDL) 01/31/2014 Triglycerides 80 mg/dL 64, 65 Cholesterol 125 mg/dL 64, 66 HDL Cholesterol 66.1 mg/dL 64, 67 LDL Cholesterol 43 mg/dL 64, 68 Comp Metabolic Panel 01/31/2014 Sodium 131 mmol/L [...] 69.6 >60 64 Egfr 89.5 >60 64, 69 Urine Microalbumin Random 01/31/2014 Ur Microalbumin (mg/L) 65.0 mg/L Urine Creatinine 162.43 mg/dL Urine Microalbumin/Creatinine 40.0 High Less Than 31 Laboratory test finding 01/08/2014 PSA Diagnostic 0.589 [...] 01/02/2013 PSA Diagnostic 0.49 ng/mL 0-4.0 82 Laboratory test finding 09/08/2012 Erythrocyte Sed Rate 10 mm/Hr 0-40 Basic Metabolic Panel 09/08/2012 Sodium 138 mmol/L 133-145 Potassium 4.3 mmol/L 3.5-5.0 Chloride 103 mmol/L 101-111 Co2 Carbon Dioxide 31.0 mmol/L 22-32 Anion Gap 4.0 mmol/L 2-11 Glucose 97 mg/dL 70-100 Blood Urea Nitrogen 22 mg/dL 6-24 Creatinine 1.10 mg/dL 0.50-1.40 BUN/Creatinine Ratio 20.0 8-20 Calcium 9.6 mg/dL 8.1-9.9 Egfr Non- 65.6 >60 Egfr 84.4 >60 83 Basic Metabolic Panel 05/03/2012 Sodium 133 mmol/L 133-145 Potassium 4.5 mmol/L 3.5-5.0 Chloride 98 mmol/L Low 101-111 Co2 Carbon Dioxide 30.0 mmol/L 22-32 Anion Gap 5.0 mmol/L 2-11 Glucose 178 mg/dL High 70-100 Blood Urea Nitrogen 15 mg/dL 6-24 Creatinine 1.00 mg/dL 0.50-1.40 BUN/Creatinine Ratio 15.0 8-20 Calcium 9.3 mg/dL 8.1-9.9 Egfr Non- 73.2 >60 Egfr 94.2 >60 84 Laboratory test finding 02/11/2012 Vitamin B12 378 pg/mL 180-914 TSH (Thyroid Stimulating Horm) 0.74 MIU/ML 0.34-5.60 Liver Function Panel 02/11/2012 Direct Bilirubin 0.3 mg/dL 0.1-0.5 Indirect Bilirubin 1.7 mg/dL High 0.3-1.0 Laboratory test finding 02/11/2012 PSA Diagnostic 0.67 NG/ML 0-4.0 Lipid Profile (Trig/Chol/HDL) 02/11/2012 Triglycerides 143 mg/dL 40-200 Cholesterol 129 mg/dL Less than 200 85 HDL Cholesterol 56 mg/dL 40-60 86 Cholesterol/HDL Ratio 2.3 AVERAGE 1-4.44 LDL Cholesterol 44.4 mg/dL Less Than 100 Comp Metabolic Panel 02/11/2012 Sodium 137 mmol/L [...] 1-3 Total Bilirubin 2.0 mg/dL High 0.1-1.0 87 Alkaline Phosphatase 75 U/L 30-110 Alt 23 U/L 14-54 Ast 21 U/L 12-42 Egfr Non- 65.6 >60 Egfr 84.4 >60 88 Urine Microalbumin Random 02/11/2012 Ur Microalbumin (Mg/L) 113.0 mg/L 89 Urine Creatinine 165.6 mg/dL Urine Microalbumin/Creatinine 68.2 UG/MG High Less Than 31 CBC Auto Diff 10/21/2011 White Blood Count [...] Eosinophils 0.1 0-0.6 Abs Basophils 0 0-0.2 Comp Metabolic Panel 09/10/2011 Sodium 138 mmol/L 135-145 Potassium 4.1 mmol/L 3.5-5.0 Chloride 101 mmol/L 101-111 Co2 (Carbon Dioxide) 30.0 mmol/L 22-32 Anion Gap 7.0 mmol/L 2-11 94 Glucose 78 mg/dL 70-100 BUN 12 mg/dL 6-24 Creatinine 1.1 mg/dL 0.50-1.40 One Over Creatinine 0.90 BUN/Creatinine Ratio 10.9 8-20 Calcium 9.5 mg/dL 8.1-9.9 Total Protein 6.0 GM/DL Low 6.2-8.1 Albumin 3.6 GM/DL 3.2-5.2 Globulin 2.4 GM/DL 2-4 Albumin/Globulin Ratio 1.5 1-3 Bilirubin Total 1.1 mg/dL 0.4-1.5 95 Alkaline Phosphatase 74 U/L 39-117 Alt (SGPT) 20 U/L 17-63 Ast (Sgot) 21 U/L 12-42 eGFR Non- 65.8 > 60 eGFR 84.6 > 60 96 Urine Microalbumin Random 09/10/2011 Microalbumin (MG/L) 61.0 mg/L Urine Creatinine 214.2 mg/dL Rodolfo Alb/Creatinine Ratio 28.5 UG/MG Less Than 30 97 CKMB 08/29/2011 CKMB In NG/ML 3.5 NG/ML 0.3-4.0 % CKMB 2 %MB 0-9 98 Laboratory test finding 08/29/2011 Myoglobin 63.90 NG/ML 17.4-105.7 Laboratory test finding 08/29/2011 Troponin-I 0.07 NG/ML High 0-0.06 99 CPK (Creatine Kinase) 180 U/L 0-200 CBC Auto Diff 08/29/2011 White Blood Count [...] 22-32 Anion Gap 13.0 mmol/L High 2-11 100 Glucose 168 mg/dL High 70-100 BUN 19 mg/dL 6-24 Creatinine 0.8 mg/dL 0.50-1.40 One Over Creatinine 1.25 BUN/Creatinine Ratio 23.8 High 8-20 Calcium 9.2 mg/dL 8.1-9.9 Total Protein 6.7 GM/DL 6.2-8.1 Albumin 3.8 GM/DL 3.2-5.2 Globulin 2.9 GM/DL 2-4 Albumin/Globulin Ratio 1.3 1-3 Bilirubin Total 1.3 mg/dL 0.4-1.5 101 Alkaline Phosphatase 77 U/L 39-117 Alt (SGPT) 20 U/L 17-63 Ast (Sgot) 20 U/L 12-42 eGFR Non- 95.0 > 60 eGFR 122.2 > 60 102 Comp Metabolic Panel 10/07/2010 Sodium 134 mmol/L [...] 5-9 Protein-Urine 1+ Negative RBC-Urine 0-2 0-2 [id number] NEGATIVE Negative Specific [place]-Ur 1.017 1.010-1.030 WBC-Urine 0-2 0-5 Comp Metabolic [...] Ratio 17.0 8-20 Creatinine 1.0 mg/dL 0.5-1.4 Laboratory test finding 02/02/2007 TSH 0.95 MIU/ML 0.34-5.60 Vitamin B12 184 pg/mL 180-914 Testosterone Total 369.1 ng/dL 175-781 Hemoglobin A1c 7.8 % High <6.0 130 Lipid Profile 02/02/2007 Cholesterol/HDL Ratio 3.52 AVERAGE 1-4.97 (Trig/Chol/HDL) Cholesterol 169 mg/dL Less Than 200 131 Triglyceride 135 mg/dL 40-200 High Density Lipoprotein 48 mg/dL 40-60 Low Density Lipoprotein 94 mg/dL Less Than 100 132 1 SEE RESULT BELOW Name: MARIE SWEENEY : [address]: Moraima Mnotague DO Acct: [id number] Unit: [id number] AGE: 78 Location: [place] [address] Re02/06/18 SEX: M Status: ADM IN SPEC: [id number] VENU: 02/06/18 [facility] DR: Bob Bertrand MD REQ: [id number] RECD: 02/06/18 STATUS: LIZZETTE ANSARI DR: Noa [...] . END OF REPORT DEPARTMENT OF PATHOLOGY, [address] [place] [address] Tavo Patel M.D. Director [facility] # [id number] 2 [facility] Severe Sepsis and Septic Shock Management Bundle Measure requires all lactic acids initially measuring >2.0 mmol/L be repeated. 3 Result TnIDx:0.06 Called to [id number] at: 17:25:41 by:[email or web address] Read back by: [email or web address] 4 Because ethnic data is not always [...] 5 Kidney failure <15 (or dialysis) 5 Interpretive information available on [employer] Test Catalog at [email or web address] 6 SEE RESULT BELOW Name: MARIE SWEENEY : [address]: Daysi Greer MD Acct: [id number] Unit: [id number] AGE: 78 Location: [place] [address] Re02/06/18 Dis: 02/10/18 SEX: M Status: DIS IN SPEC: [id number] VENU: 02/06/18 [facility] DR: Bob Bertrand MD REQ: [id number] RECD: 02/06/18 STATUS: LIZZETTE ANSARI DR: Noa Fernandez MD _ SOURCE: BLOOD,[facility]: ORDERED: Blood Cult Procedure Result Reported Site Aerobic Culture Bottle Final 02/11/181820 ML No Growth Day 5 Anaerobic Culture Bottle Final 02/11/181820 ML No Growth Day 5 * ML - Main Lab . END OF REPORT DEPARTMENT OF PATHOLOGY, [address] [place] [address] Tavo Patel M.D. Director [facility] # [id number] 7 Leadlighter: [id number] 8 SEE RESULT BELOW Name: MARIE SWEENEY : [address]: Kenny Ortega MD Acct: [id number] Unit: [id number] AGE: 78 Location: ED Re02/05/18 SEX: M Status: REG ER SPEC: [id number] VENU: 02/05/18 [facility] DR: Kenny Ortega MD REQ: [id number] RECD: 02/05/18 STATUS: LIZZETTE ANSARI DR: Noa Fernandez MD _ SOURCE: [facility] SPDES: ORDERED: Flu A B Request Procedure Result Reported Site Rapid Influenza A B Request Final 02/05/181640 ML Specimen received for Influenza A/B Molecular testing * ML - Main Lab . END OF REPORT DEPARTMENT OF PATHOLOGY, [address] [place] [address] Tavo Patel M.D. Director [facility] # [id number] 9 Leadlighter: [id number] 10 SEE RESULT BELOW Name: MARIE SWEENEY : [address]: Kenny Ortega MD Acct: [id number] Unit: [id number] AGE: 78 Location: ED Re02/05/18 SEX: M Status: REG ER SPEC: [id number] VENU: 02/05/[address]: Ayla JOHNSON REQ: [id number] RECD: 02/05/18 STATUS: LIZZETTE ANSARI DR: [facility] Noa Fernandez MD _ SOURCE: THROAT SPDESC: ORDERED: Strep A Request Procedure Result Reported Site Rapid Strep A Request Final 02/05/18- 1535 ML Specimen received for Rapid Strep A Molecular testing * ML - Main Lab . END OF REPORT DEPARTMENT OF PATHOLOGY, [address] [place] [address] Tavo Patel M.D. Director [facility] # [id number] 11 1623-A:Morphology: pearly telangiectatic papule;DDX: Basal Cell Carcinoma; Location: right frontal 12 SEE RESULT BELOW Name: MARIE SWEENEY : [address]: Mami Lou MD Acct: [id number] Unit: [id number] AGE: 77 Location: [facility] Re01/05/18 SEX: M Status: REG REF SPEC: [id number] VENU: 01/05/18-1311 [facility] DR: Mami Lou MD REQ: [id number] RECD: 01/05/18 STATUS: MARLEN ANSARI DR: Noa Fernandez MD _ ORDERED: LEVEL 4 COMMENTS: [id number] FINAL DIAGNOSIS Skin, right frontal scalp, biopsy: [...] 1013 END OF REPORT DEPARTMENT OF PATHOLOGY, [address] [place] [address], [place] [address] Tavo Patel M.D. Director [facility] # [id number] 13 [id number] SEE RESULT BELOW Name: MARIE SWEENEY John : [address]: Jorden Silva MD Acct: [id number] Unit: [id number] AGE: 77 Location: [facility] Re09/29/17 SEX: M Status: [facility] SPEC: [id number] VENU: 09/29/17 [facility] DR: Jorden Silva MD REQ: [id number] RECD: 09/29/17 STATUS: SOUT _ ORDERED: Decal, LEVEL 3 COMMENTS: [id number] FINAL DIAGNOSIS Bone, left index finger, middle [...] 1149 END OF REPORT DEPARTMENT OF PATHOLOGY, [address] [place] [address] Tavo Patel M.D. Director [facility] # [id number] 15 SEE RESULT BELOW Name: MARIE SWEENEY : [address]: Jorden Silva MD Acct: [id number] Unit: [id number] AGE: 77 Location: [facility] Re09/29/17 SEX: M Status: [facility] SPEC: [id number] VENU: 09/29/17 [facility] DR: Jorden Silva MD REQ: [id number] RECD: 09/29/17 STATUS: LIZZETTE ANSARI DR: Noa Fernandez MD _ SOURCE: FINGER SPDESC:INDEX LEFT ORDERED: Culture Stain Procedure Result Reported Site Wound/Misc Gram Stain Final 09/30/17- 734 ML 1+ Neutrophils No Organisms Seen Wound/Misc Culture Final 10/03/17- 806 ML No Growth Day 4 * ML - Main Lab . END OF REPORT DEPARTMENT OF PATHOLOGY, [address] [place] [address] Tavo Patel M.D. Director [facility] # [id number] 16 SEE RESULT BELOW Name: MARIE SWEENEY : [address]: Jorden Silva MD Acct: [id number] Unit: [id number] AGE: 77 Location: [place] Re09/29/17 SEX: M Status: DEP SDC SPEC: [id number] VENU: 09/29/17 [facility] DR: Jorden Silva MD REQ: [id number] RECD: 09/29/17 STATUS: LIZZETTE ANSARI DR: Noa Fernandez MD _ SOURCE: WOUND SPDESC:INDEX LEFT ORDERED: Anaerobic Cult Procedure Result Reported Site Anaerobic Culture Final 10/03/17- 806 ML No Growth Day 4 * ML - Main Lab . END OF REPORT DEPARTMENT OF PATHOLOGY, [address] [place] [address] Tavo Patel M.D. Director [facility] # [id number] 17 Acute inflammation: >10.00 18 Acute inflammation: >10.00 19 Not diagnostic. Supplemental testing by immunoblot has been ordered by reflex. Test Performed by: [facility] [place] [address] 20 Specific serologic response to B. burgdorferi [...] screening test (e.g., EIA). Test Performed by: [facility] - [address] [address] 21 Desirable: <150 Borderline High: 150-199 High: 200-499 Very High: >500 22 Desirable: <200 Borderline High: 200-239 High: >239 23 Low: <40 Desirable: 40-60 High: >60 24 Desirable: <100 Near Optimal: 100-129 Borderline High: 130-159 High: 160-189 Very High: >189 25 Because ethnic data is not always readily [...] 15-29 5 Kidney failure <15 (or dialysis) 26 Normal Range 180 to 914 Indeterminate Range 145 to 180 Deficient Range <145 27 Serum levels of PSA measured using the [employer] DXI Hybritech immunoassay should not be interpreted [...] methods or kits cannot be used interchangeably. 28 Please note: The following may produce [...] protein on serum electrophoresis. Test Performed by: [address] [address] Data Scientist: Clifton Bruce II, M.D., Ph.D. 44 Desirable [...] 10 HOUR Copy Result to: [facility] ([id number]) 50 Normal Range 180 to 914 Indeterminate Range 145 to 180 Deficient Range <145 51 Copy Result to: [facility] ([id number]) 52 Because ethnic data is not always [...] 5 Kidney failure <15 (or dialysis) 55 FASTING 10 HOUR 56 Desirable <150 Borderline high 150-199 High 200-499 Very High >500 57 Desirable <200 Borderline high 200-239 High >239 58 Low <40 Desirable: 40-60 High: >60 59 Desirable: <100 mg/dL Near Optimal: 100-129 mg/dL Borderline High: 130-159 mg/dL High: 160-189 mg/dL Very High: >189 mg/dL 60 Serum levels of PSA measured using the [employer] DXI Hybritech immunoassay should not be interpreted [...] methods or kits cannot be used interchangeably. 61 Leadlighter: [id number] ALEX HARRELL 62 Leadlighter: [id number] GOLDIE PÉREZ 63 SEE RESULT BELOW Name: MARIE SWEENEY : [address]: Damian Goldberg MD Acct: [id number] Unit: [id number] AGE: 74 Location: ENDO Re10/07/14 SEX: M Status: REG REF SPEC: [id number] VENU: 10/07/140851 [facility] DR: Damian Goldberg MD REQ: [id number] RECD: 10/07/143418 STATUS: MARLEN ANSARI DR: Noa Fernandez MD [...] performed at Main Lab DEPARTMENT OF PATHOLOGY, [address] [place] [address] Tavo Patel M.D. Director [facility] # [id number] 64 PT IS FASTING 65 Desirable <150 Borderline high 150-199 High 200-499 Very High >500 66 Desirable <200 Borderline high 200-239 High >239 67 Low <40 Desirable: 40-60 High: >60 68 Desirable <100 Near Optimal 100-129 Borderline high 130-159 High 160-189 Very High >189 69 Because ethnic data is not always readily [...] 15-29 5 Kidney failure <15 (or dialysis) 70 Serum levels of PSA measured using the [employer] DXI Hybritech immunoassay should not be interpreted [...] Chromatography-Tandem Mass Spectrometry (LC-MS/MS). Test Performed by: [place] [address] Data Scientist: Bon Rivers III, M.D. 73 Microalbuminuria in [...] mg/dL 77 FASTING 78 RUN DATE: 01/26/13 [facility] LAB LIVE PAGE 1 RUN TIME: [address] [place] [id number] Specimen Inquiry Name: MARIE SWEENEY : [address]: Noa Fernandez MD Acct: [id number] Unit: [id number] AGE: 73 Location: [facility] Re01/24/13 SEX: M Status: REG REF SPEC: [id number] VENU: 01/24/[address]: Noa Fernandez MD REQ: [id number] RECD: 01/24/133927 STATUS: RES _ SOURCE: STOOL SPDESC: ORDERED: Hemoccult, Stool Culture, O P (Full), O P: Claudy/Donaldo QUERIES: Medent Number [id number] Procedure Result Verified Site Stool Culture Final [...] performed at Main Lab DEPARTMENT OF PATHOLOGY, [facility] [employer] [place], [place] [address] Tavo Patel M.D. Director [facility] Permit #[id number] RUN DATE: 01/26/13 [facility] LAB LIVE PAGE 2 RUN TIME: 7230 [facility] [employer] [place], [place] [address] Specimen Inquiry Patient: MARIE SWEENEY [id number] (Continued) Specimen: [id number] Collected: 01/24/13 Received: 01/24/13 (Continued) Procedure Result Verified Site Shiga Toxin 1 2 Final (continued) 01/26/13- 135 Stool Occult Blood Final 01/24/13- 1603 ML [...] performed at Main Lab DEPARTMENT OF PATHOLOGY, [employer] [place], [place] [address] Tavo Patel M.D. Director [facility] Permit #[id number] RUN DATE: 01/25/13 [facility] LAB LIVE PAGE 1 RUN TIME: 1609 [facility] [employer] [place], [place] [address] Specimen Inquiry Name: MARIE SWEENEY : [address]: Noa Fernandez MD Acct: [id number] Unit: [id number] AGE: 73 Location: [facility] Re01/24/13 SEX: M Status: REG REF SPEC: [id number] VENU: 01/24/130750 SUBM DR: Noa Fernandez MD REQ: [id number] RECD: 01/24/138155 STATUS: RES _ SOURCE: STOOL SPDESC: ORDERED: Hemoccult, Stool Culture, O P (Full), O P: Giar/Crypt QUERIES: Medent Number [id number] Procedure Result Verified Site Stool Culture Preliminary [...] performed at Main Lab DEPARTMENT OF PATHOLOGY, [address] [place] [address] Tavo Patel M.D. Director [facility] Permit #[id number] RUN DATE: 01/24/13 [facility] LAB LIVE PAGE 1 RUN TIME: 1606 [address] [place], [place] [address] Specimen Inquiry Name: MARIE SWEENEY : [address]: Noa Fernandez MD Acct: [id number] Unit: [id number] AGE: 73 Location: [facility] Re01/24/13 SEX: M Status: REG REF SPEC: [id number] VENU: 01/24/13 [facility] DR: Noa Fernandez MD REQ: [id number] RECD: 01/24/134 STATUS: RES _ SOURCE: STOOL SPDESC: ORDERED: Hemoccult, Stool Culture, O P (Full), O P: Giar/Crypt QUERIES: Medent Number [id number] Procedure Result Verified Site Stool Culture PENDING Stool Specimen Description Final 01/24/13- 1545 ML Stool Color Brown Stool Form Nonformed Stool Consistency Soft Shiga Toxin 1 2 PENDING Stool Occult Blood Final 01/24/13- 1603 ML Stool Occult Blood Negative Ova Parasite Concen Full PENDING O P: Giardia/Cryptospor Screen PENDING END OF REPORT * ML=Testing performed at Main Lab DEPARTMENT OF PATHOLOGY, [facility] [employer] [place] [address] Tavo Patel M.D. Director [facility] Permit #[id number] RUN DATE: 01/26/13 [facility] LAB LIVE PAGE 1 RUN TIME: 1432 [facility] [employer] [place] [address] Specimen Inquiry Name: MARIE SWEENEY : [address]: Noa Fernandez MD Acct: [id number] Unit: [id number] AGE: 73 Location: [facility] Re01/24/13 SEX: M Status: REG REF SPEC: [id number] VENU: 01/24/[address]: Noa Fernandez MD REQ: [id number] RECD: 01/24/13 STATUS: COMP _ SOURCE: STOOL SPDESC: ORDERED: Hemoccult, Stool Culture, O P (Full), O P: Giar/Crypt QUERIES: Medent Number [id number] Procedure Result Verified Site Stool Culture Final [...] performed at Main Lab DEPARTMENT OF PATHOLOGY, [address] [employer] [place] [id number] Tavo Patel M.D. Director [facility] Permit #[id number] RUN DATE: 01/26/13 [facility] LAB LIVE PAGE 2 RUN TIME: [address] [place] [address] Specimen Inquiry Patient: MARIE SWEENEY [id number] (Continued) Specimen: [id number] Collected: 01/24/13 Received: 01/24/13-5702 (Continued) Procedure Result Verified Site Shiga Toxin [...] is requested. Contact the Microbiology Department at [phone]. TEST LIMITATIONS: As with all diagnostic procedures, [...] performed at Main Lab DEPARTMENT OF PATHOLOGY, [address] [place] [address] Tavo Patel M.D. Director [facility] Permit #[id number] Serum levels of PSA measured using the Mike Dariel DXI Hybritech immunoassay should not be [...] 5 Kidney failure <15 (or dialysis) 85 Desirable: Less than 200 MG/DL Borderline-High Risk: 200-239 MG/DL High-Risk: 240 MG/DL and over 86 HDL Interpretation: Undesirable: High Risk: Less than 40 MG/DL Desirable: Low Risk: Greater than 60 MG/DL 87 A metabolite of Naproxen, O-desmethylnaproxen, has been shown to interfere with the Jendrassik-Norma method for measuring total bilirubin. Samples from patients who have taken Naproxen have shown spurious elevation in total bilirubin levels. 88 Because ethnic data is not always readily [...] 15-29 5 Kidney failure <15 (or dialysis) 89 Microalbuminuria in a random sample is defined as: Microalbumin/Creatinine ratio of 30-299 ug/mg. 90 Lymphopenia % 91 CHOLESTEROL INTERPRETATION: Desirable: [...] Risk: LDL Greater than 189 MG/DL 94 Anion gap measurement may be of limited value in the presence of any alkalosis, especially in a combined acid base disorder. . 95 A metabolite of Naproxen, O-desmethylnaproxen, has been shown to interfere with the Jendrassik-Norma method for measuring total bilirubin. Samples from patients who have taken Naproxen have shown spurious elevation in total bilirubin levels. 96 Because ethnic data is not always readily [...] 15-29 5 Kidney failure <15 (or dialysis) 97 MICROALBUMINURIA IN A RANDOM SAMPLE IS DEFINED : MICROALBUMIN/CREATININE RATIO OF 30-299 ug/mg. . 98 INTERPRETATION %CK-MB < 5% NOT SUPPORTIVE OF DIAGNOSIS OF AK 5 - <10% INDETERMINATE; SUGGEST SERIAL STUDIES IF CLINICALLY INDICATED 10% OR > CONSISTENT WITH DIAGNOSIS OF AK . 99 New Reference Range and Interpretation effective 01/26/2002 TnI (ng/ml) INTERPRETATION Less Than 0.06 ng/mL NOT SUPPORTIVE OF DIAGNOSIS OF [place] 0.06 - 0.50 ng/ml INDETERMINATE: SUGGEST SERIAL STUDIES IF CLINICALLY INDICATED. Greater than 0.5 ng/mL CONSISTENT WITH DIAGNOSIS OF [place] . 10 Anion gap measurement may be of limited value in the 0 presence of any alkalosis, especially in a combined acid base disorder. . 10 A metabolite of Naproxen, O-desmethylnaproxen, has been 1 shown to interfere with the Jendrassik-Ahwahnee method for measuring total bilirubin. Samples from patients who have taken Naproxen have shown spurious elevation in total bilirubin levels. 10 Because ethnic data is not always readily available, 2 this report includes an eGFR for both [...] 15-29 5 Kidney failure <15 (or dialysis) 10 Anion gap measurement may be of limited value in the 3 presence of any alkalosis, especially in a combined acid base disorder. . 10 A metabolite of Naproxen, O-desmethylnaproxen, has been 4 shown to interfere with the Jendrassik-Norma method for measuring total bilirubin. Samples from patients who have taken Naproxen have shown spurious elevation in total bilirubin levels. 10 Because ethnic data is not always readily available, 5 this report includes an eGFR for both [...] 15-29 5 Kidney failure <15 (or dialysis) 10 CHOLESTEROL INTERPRETATION: 6 Desirable: Less than 200 MG/DL Borderline-High Risk: 200-239 MG/DL High-Risk: 240 MG/DL and over 10 HDL INTERPRETATION: 7 Undesirable: High Risk: Less than 40 MG/DL Desirable: Low Risk: Greater than 60 MG/DL 10 LDL INTERPRETATION: 8 Low Risk Optimal Level: LDL Less than 100 MG/DL Near or Above Optimal: LDL 100-129 MG/DL Borderline High Risk: LDL 130-159 MG/DL High Risk: LDL 160-189 MG/DL Very High Risk: LDL Greater than 189 MG/DL 10 MICROALBUMINURIA IN A RANDOM SAMPLE IS DEFINED : 9 MICROALBUMIN/CREATININE RATIO OF 30-299 ug/mg. . 11 CHOLESTEROL INTERPRETATION: 0 Desirable: Less than 200 MG/DL Borderline-High Risk: 200-239 MG/DL High-Risk: 240 MG/DL and over 11 HDL INTERPRETATION: 1 Undesirable: High Risk: Less than 40 MG/DL Desirable: Low Risk: Greater than 60 MG/DL 11 LDL INTERPRETATION: 2 Low Risk Optimal Level: LDL Less than 100 MG/DL Near or Above Optimal: LDL 100-129 MG/DL Borderline High Risk: LDL 130-159 MG/DL High Risk: LDL 160-189 MG/DL Very High Risk: LDL Greater than 189 MG/DL 11 CHOLESTEROL INTERPRETATION: 3 Desirable: Less than 200 MG/DL Borderline-High Risk: 200-239 MG/DL High-Risk: 240 MG/DL and over 11 HDL INTERPRETATION: 4 Undesirable: High Risk: Less than 40 MG/DL Desirable: Low Risk: Greater than 60 MG/DL 11 LDL INTERPRETATION: 5 Low Risk Optimal Level: LDL Less than 100 MG/DL Near or Above Optimal: LDL 100-129 MG/DL Borderline High Risk: LDL 130-159 MG/DL High Risk: LDL 160-189 MG/DL Very High Risk: LDL Greater than 189 MG/DL 11 A metabolite of Naproxen, O-desmethylnaproxen, has been 6 shown to interfere with the Jendrassik-Norma method for measuring total bilirubin. Samples from patients who have taken Naproxen have shown spurious elevation in total bilirubin levels. 11 Please note updated reference range, effective 11/13/09 7 11 NORMAL ELECTROPHORETIC PATTERN. 8 11 COMMENTS: N 9 12 Lymphopenia % 0 12 Anion gap measurement may be of limited value in the 1 presence of any alkalosis, especially in a combined acid base disorder. . 12 Note change in reference range as of 12/14/07. The 2 change was based on recommendations from the [employer] [employer]. 12 A metabolite of Naproxen, O-desmethylnaproxen, has been 3 shown to interfere with the Jendrassik-Ahwahnee method for measuring total bilirubin. Samples from patients who have taken Naproxen have shown spurious elevation in total bilirubin levels. 12 Because ethnic data is not always readily available, 4 this report includes an eGFR for both [...] 15-29 5 Kidney failure <15 (or dialysis) 12 New Reference Range and Interpretation effective 01/26/2002 5 TnI (ng/ml) INTERPRETATION Less Than 0.06 ng/mL NOT SUPPORTIVE OF DIAGNOSIS OF AK 0.06 - 0.50 ng/ml INDETERMINATE: SUGGEST SERIAL STUDIES IF CLINICALLY INDICATED. Greater than 0.5 ng/mL CONSISTENT WITH DIAGNOSIS OF [place] . 12 Recommended INR for Patients 6 on Oral Anticoagulants Prophylaxis 2.0 - 3.0 Treatment of thrombosis 2.0 - 3.0 Prevention of embolism 2.0 - 3.0 Prevention of embolism from prosthetic heart valves 2.5 - 3.5 12 DIAGNOSIS,TREATMENT,AND THERAPY MUST BE BASED ON THE INR 7 VALUE ALONE. 12 * 8 SERUM LEVELS OF PSA MEASURED USING THE Loudeye ACCESS HYBRITECH IMMUNOASSAY SHOULD NOT BE INTERPRETED ABSOLUTE EVIDENCE OF THE PRESENCE OR ABSENCE OF DISEASE. THE PSA VALUE SHOULD BE USED IN CONJUNCTION WITH OTHER PERTINENT CLINICAL DIAGNOSTIC PROCEDURES. 12 Anion gap measurement may be of limited value in the 9 presence of any alkalosis, especially in a combined acid base disorder. . 13 THERAPEUTIC TARGET FOR THE TREATMENT OF DIABETES 0 MELLITUS PATIENTS IS <7% HBA1C, AND IN SELECTIVE PATIENTS <6.0%. PLEASE REFER TO [employer] [place] DIABETIC CARE GUIDELINES FOR FURTHER INFORMATION. 13 Classification: Desirable 1 . 13 CALCULATED LDL APPROXIMATES THE VALUE OF A DIRECT LDL 2 MEASUREMENT. Classification: Optimal Level . Procedures Date CPT Code Description Status 02/07/2018 66353 ECHO Transthorasic Realtime 2D W Doppler & Color Flow Completed Hosp 11/22/2017 Diabetic Retinal Eye Exam Completed 09/29/2017 46841 Inject/Drain Joint/Bursa Small W/O US Completed 09/29/201722958 Excise Biopsy Bone Deep Completed 09/29/2017 Inject/Drain Joint/Bursa Small W/O US Completed 09/29/201761422 Excise Biopsy Bone Deep Completed 04/12/2017 Diabetic Retinal Eye Exam Completed 02/23/2017 91233 EKG Tracing & Interpretation Completed 10/19/2016 Diabetic Retinal Eye Exam Completed 05/05/2016 94132 Inject Tendon Sheath Or Ligament Aponeurosis Eg Plantar Completed Fascia 04/08/2016 Diabetic Retinal Eye Exam Completed 11/10/2015 76117 Cardiac Cath,LT Hrtmincl Intraprocedural Ink LT Completed Ventricul Mammary 10/23/2015 54059 Stress Test Completed 10/23/2015 04054 Myocardial Perfusion Imaging Tomographic (Spect) Completed Multiple Studies 10/21/2015 67114 ECHO Transthoracic, Real-Time 2D With Doppler And Color Completed Flow 10/07/2015 Diabetic Retinal Eye Exam Completed 09/26/2015 81888 EKG Tracing & Interpretation Completed 09/25/2015 20857 Inject Tendon Sheath Or Ligament Aponeurosis Eg Plantar Completed Fascia 09/23/2015 95253 Carotid Doppler,Bilateral Completed 09/23/2015 93101 Carotid Doppler,Bilateral Completed 02/06/2015 83755 Inject Tendon Sheath Or Ligament Aponeurosis Eg Plantar Completed Fascia 10/11/2014 82010 EKG Tracing & Interpretation Completed 10/07/2014 Colonoscopy Completed 09/19/2014 Diabetic Retinal Eye Exam Completed 03/12/2014 Diabetic Retinal Eye Exam Completed 01/17/2014 24828 Rad Exam; Wrist, Comp, Min 3 Views Completed 01/17/2014 93721 Inject Tendon Sheath Or Ligament Aponeurosis Eg Plantar Completed Fascia 08/17/2013 76140 Carotid Doppler,Bilateral Completed 08/14/2013 30697 ECHO Transthoracic, Real-Time 2D With Doppler And Color Completed Flow 08/08/2013 89294 Myocardial Perfusion Imaging Tomographic (Spect) Completed Multiple Studies 08/08/2013 77775 Stress Test Completed 02/18/2012 Diabetic Retinal Eye Exam Completed 08/20/2011 Diabetic Retinal Eye Exam Completed 04/12/2011 07195 EKG Tracing & Interpretation Completed 09/29/2009 25484 EKG Tracing & Interpretation Completed 08/19/2008 21631 EKG Tracing & Interpretation Completed 03/08/2007 54218 EKG Tracing & Interpretation Completed 05/03/2006 50204 Pulse Doppler & Continuous Wave Completed 05/03/2006 10140 Echocardiogram Completed 05/03/2006 84517 Echocardiogram Completed 05/03/2006 70594 Color Doppler Completed 05/03/2006 42204 Color Doppler Completed Encounters Type Date Location Provider CPT E/M Dx Office Visit 11/07/2017 [facility] Internal Medicine Noa Fernandez, 98828 Z00.00 1:20p - Alf Ravi I10 E11.21 E78.5 R19.5 Office Visit 10/07/2017 8:45a [facility] [place] [address] M79.645 C.M.AGracie Z48.02 Office Visit [facility] [address] M79.645 Infectious Diseases Breonna Washburn Office Visit 09/27/2017 2:40p [facility] Internal Medicine Ladarius Garcia, 18463 M86.242 - Alf Ravi,FACP Office Visit 09/12/2017 3:00p [facility] Internal Medicine Ladarius Garcia, 52491 E11.9 - [place] Gianni Ravi,FACP M01.x42 M10.9 Office Visit 05/02/2017 2:00p [facility] Internal Medicine - Noa Fernandez 04933 I10 Alf Ravi Office Visit 02/23/2017 11:45a [facility] Jerman Russell 06478 I10 Yesenia Ravi I25.118 I35.0 Office Visit 12/15/2016 3:30p [facility] Internal Medicine Noa Fernandez 85263 R07.89 - Tbdavid Archer M.D. Office Visit 11/04/2016 2:40p [facility] Internal Medicine Noa Fernandez 68443 Z00.00 - Alf Ravi I10 Office Visit 08/23/2016 2:00p [facility] Internal Medicine Noa Fernandez M.D. 56792 I10 - Alf R01.1 R19.4 Office Visit 04/21/2016 1:45p Pulmonology And Sleep Patricia Mata, 70931 G47.33 Services Of [facility] HITESH RN, [employer] SUPERVISOR- Office Visit 03/25/2016 10:40a [facility] Internal Medicine Noa Fernandez 79905 I10 - Alf Ravi Office Visit 03/04/2016 10:00a [facility] Internal Medicine Noa Fernandez 87367 I10 - Alf Ravi L40.8 Office Visit 01/30/2016 10:00a [facility] Jerman Russell 87429 I10 Breonna I25.118 I35.0 Office Visit 11/17/2015 9:00a [facility] ELIZABETH Giron 70033OYX I10 I25.118 I35.0 Office Visit 10/24/2015 3:45p [facility] Jerman Russell, 02026 I25.118 [facility] M.DGracie I35.0 Office Visit 09/26/2015 9:45a [facility] Jerman Russell, 20120 I10 M.DGracie I25.118 R01.1 Office Visit 09/25/2015 3:20p [facility] Griselda Gore, 28864 M65.4 Fiona RPA-C Office Visit 03/03/2015 9:40a [facility] Internal Medicine Noa Fernandez 90207 I10 - Alf Ravi R10.31 Office Visit 01/09/2015 1:00p [facility] [place] [address] 327.23 Services Of [facility] 278.00 Office Visit 12/13/2014 9:20a [facility] [place] [address] 789.03 - [place] Office Visit 10/11/2014 2:30p [facility] Jerman Cornejo Drew, 56108 401.1 [facility] Breonna 414.01 Office Visit 10/09/2014 3:45p [facility] [place] [address] 327.23 Services Of [facility] 278.00 Office Visit 10/09/2014 2:00p [facility] [place] [address] V72.84 [place] 366.9 250.00 401.1 327.23 414.01 Office Visit 08/22/2014 4:00p [facility] Internal Medicine Noa Fernandez 49434 V70.0 - Alf Ravi 401.1 250.00 327.23 Office Visit 08/07/2014 2:30p [facility] [place] [address] 843.8 - [place] [address] Office Visit 02/27/2014 10:40a [facility] Internal Medicine Noa Fernandez 64843 401.1 - Alf Ravi Office Visit 01/17/2014 1:15p Orthopedic Services Belkis Thorpe 85765 727.04 Of Fiona Ravi Office Visit 09/06/2013 9:30a [facility] Jerman ColesGracie Russell, 89345 414.01 Yesenia Ravi 786.05 Office Visit 08/17/2013 3:40p [facility] Internal Medicine Noa Fernandez 61965 V70.0 - [place] Priscila.Clemente 724.3 414.01 250.02 Office Visit 08/10/2013 1:30p [facility] Nia Bishop M.D. 44710 401.1 [facility] 786.51 414.01 785.2 785.9 Office Visit 01/18/2013 8:40a [facility] Internal Medicine Noa Fernandez, 29623 401.1 - [place] M.DGracie 787.91 V04.81 Office Visit 10/10/2012 11:00a [facility] Internal Medicine Philomena Jay M.D., 38642 786.2 - [place] FACP Office Visit 08/11/2012 1:00p [facility] Internal Medicine Noa Fernandez 44568 401.1 - [place] Breonna 784.0 Office Visit 05/02/2012 3:00p [facility] Internal Medicine Noa Fernandez 30849 401.1 - [place] M.DGracie 784.0 Office Visit 04/07/2012 9:40a [facility] Internal Medicine Noa Fernandez 81793 V70.0 - [place] M.DGracie 401.1 785.9 Office Visit 03/21/2012 9:00a [facility] Internal Medicine Noa Fernandez 00645 401.1 - [place] M.Clemente Office Visit 02/28/2012 2:20p [facility] Internal Medicine Marsha Kline, N.P. 07359 380.4 - [place] Office Visit 02/18/2012 1:00p [facility] Internal Medicine Noa Fernandez 61791 401.1 - [place] Breonna 724.5 Office Visit 01/03/2012 2:40p [facility] Internal Medicine Noa Fernandez 48765 V04.81 - [place] M.DGracie 401.1 238.2 Office Visit 11/18/2011 2:40p [facility] Internal Medicine Noa Fernandez 32113 401.1 - [place] M.DGracie Office Visit 10/07/2011 11:00a [facility] Internal Medicine Noa Cotton, 71673 401.1 - [place] M.D. Office Visit 04/21/2011 1:00p DO Not Use Philomena Jay M.D., 37463 786.2 [employer] FACP Office Visit 08/19/2010 2:45p DO Not Use Marsha Kline, N.P. 79165 466.0 [employer] Office Visit 08/04/2010 11:30a DO Not Use Noa Cotton, 62949 401.1 [employer] M.D. 272.2 Office Visit 04/02/2010 10:15a DO Not Use Noa Cotton, 39935 682.0 [employer] M.D. 401.1 250.00 Office Visit 01/08/2010 9:00a DO Not Use [employer] Nurse [place] A 68[address] 401.1 V04.81 Office Visit 10/07/2009 11:30a DO Not Use Marsha Kline, N.P. 48342 466.0 [employer] Office Visit 09/29/2009 1:15p DO Not Use Noa Cotton, 87577 V70.0 [employer] M.D. 785.9 723.1 600.00 401.1 Office Visit 06/10/2009 1:30p DO Not Use Alla Cassidy, 85316 250.00 [employer] M.D. 401.1 272.0 V04.81 Office Visit 02/18/2009 2:30p DO Not Use Alla Cassidy, 57826 250.02 [employer] M.D. 753.10 V04.81 Office Visit 11/15/2008 3:00p DO Not Use Alla Cassidy, 67850 250.00 [employer] M.D. 401.1 Office Visit 09/06/2008 3:00p DO Not Use [employer] Marsha Kline, 20710 465.9 N.P. 462 Office Visit 08/19/2008 10:45a DO Not Use Alla Cassidy, 98131 V70.0 [employer] M.D. 250.00 272.0 719.45 401.1 Office Visit 04/29/2008 1:30p DO Not Use Alla Cassidy, 68801 250.02 [employer] M.D. 401.1 Office Visit 03/27/2008 10:45a DO Not Use Marsha Kline, 97244 461.9 [employer] N.P. Office Visit 03/05/2008 3:00p DO Not Use Alla Cassidy, 84769 250.02 [employer] M.D. 401.1 Office Visit 12/12/2007 3:00p DO Not Use Alla Cassidy, 59898 715.94 [employer] M.D. 250.02 401.1 Office Visit 10/17/2007 9:45a DO Not Use Alla Cassidy, 29745 250.00 [employer] M.D. 401.1 Office Visit 10/12/2007 12:15p DO Not Use [employer] Philomena Jay, 19623 466.0 M.D., FACP Office Visit 08/16/2007 2:45p DO Not Use [employer] Alla Cassidy, 00781 V70.0 M.D. 250.00 401.1 356.9 V05.8 Office Visit 05/02/2007 2:15p DO Not Use Alla Cassidy, 04513 250.00 [employer] M.D. 401.1 Office Visit 03/29/2007 3:15p DO Not Use Alla Cassidy, 33544 250.02 [employer] M.D. 401.1 719.46 Office Visit 03/08/2007 2:30p DO Not Use Alla Cassidy, 27494 250.00 [employer] M.D. 401.1 Plan of Care Future Appointment(s):02/22/2018 10:45 am - Jerman Russell M.D. at [facility]03/29/2018 3:45 pm - Jerman Russell M.D. at [facility]04/27/2018 10:40 am - Noa Fernandez M.D. at [facility] Internal Medicine [facility]02/14/2018 - Debbie Escobedo MDJ18.9 Pneumonia, unspecified organismComments:please finish your antibioticsI recommend eating more yogurt and other probiotic foods. Please notify me if you get mybafvpkE04.9 Chronic ischemic heart disease, unspecifiedComments:Keep your appointment with Dr. Russell next week.E11.21 Type 2 diabetes mellitus with diabetic nephropathyComments:Your diabetes is well controlled.HgA1c is 7.5%Continue a carb controlled dietI10 Essential (primary) hypertensionComments:repeat BP left arm 138/50Continue with your current medication.I35.0 Nonrheumatic aortic (valve ) stenosisComments:Call 911 if you get suddenly short of breath
--- OUTSIDE RECORDS SUMMARY | 2018-02-24 21:28 | XMS REPORT ---
:1940 External Reference #:[id number] Author Organization [facility] Address [address] [place] [address] [place] [address] Phone [phone] Care Team Providers Name Role Phone Noa Fernandez MD Primary Care Physician Unavailable Payers Type Date Identification Numbers Payment Provider Subscriber Medicare Primary Effective: Policy Number: Medicare Marie Sweeney 2004 [id number] PayID: [id number] [address] [place] [address] Medigap Part B Policy Number: [id number] 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 as needed - e11.79 Unilet Super-Thin 02/23 Active Misc 30G 300un Test Blood Marsha G its Sugar Four Varn, N.P. Times A Day Or as Needed BD Ultra-Fine Pen 04/16 Active 360un use 4 Noa NDL [id number] its times a Cotton, day or as M.D. needed Glucocom Blood 04/05 Active Kit W/Device 1unit for use Noa Glucose Monitoring s once daily Jim, System - meter M.D. per plan Dx E11.9, Z79.4 Pen [place] 07/08" 10/15 Active Misc 31G X 5 360un use 4 mm its times a Cotton, day or as M.D. needed dx: e11.9 last seen 09/02/15 Lancets Ultra Thin 10/15 Active Misc Thin 30G 360un use to Marsha 30 its check Varn, N.P. blood sugar four times a day or as needed - E11.9 - last seen 09/02/15 Levemir Flextouch 09/26 Active Solution 100Unit/M 60uni inject Pen-Injec L ts subcutaneo haile Fernandez usly 66 M.D. units per day or as directed by dr. lou Atorvastatin 08/17 Active Tablets 20mg 90tab take one s tablet by Cotton, mouth M.D. every day Irbesartan 12/26 Active Tablets 300mg 90tab take one Noa s tablet by [...] 45uni Inject 14 Pen-Injec L ts Units Jim t Three M.D. Times A Day Or as Directed Aspirin 09/28 Active Tablets 81mg 30tab 1 tablet s once daily Breonna Fernandez Centrum Silver Active Tablets 1 po qd Unknown Ultra Mens Fish Oil Active Capsules 1000mg 1 po bid Vitamin D Active Capsules 1000Unit 30cap po qd s Vitamin B12 Active Tablets 2000mcg 90tab 1 po qd s Cialis Active 1-2 by Unknown /0000 mouth one hour prior to sexual activity every 3 days Cpap Mask And Active Device night time Unknown Supplies / Cpap Active Device via nasal Unknown / cannula used at night Eplerenone Active Tablets 50mg 90tab 1 by mouth Noa /0000 s every Cotton, morning M.D. Doxycycline 09/29 Hx Tablets 100mg 20tab 1 tab by Jorden Powell /2017 s janet Silva MD - twice a 10/05 day for days True Metrix Blood 10/15 Hx Strips 300un test 4 Z79.4 Noa Glucosetest Strips /2015 its times [place], - daily or M.D. 07/12 as needed dx E11.9, Z79.4. Test strips per plan Z00.00 Imodium A-D 01/18/2013 Hx Tablets 2mg 30tabs 1 tab orally 787.91 Noa - initially, [place], 08/10/2013 followed by 1 M.D. tab after each loose stool as needed at residence discression Flovent HFA 10/10/2012 Hx Aerosol 44mc 1units 2 puffs twice 786.2 Philomena - g/Ac daily for 10 Misty, 08/07/2013 t days M.D., FACP Benzonatate 10/10/2012 Hx Capsules 200m 30caps take 1 capsule 786.2 Philomena - g by mouth three Misty, 01/18/2013 times a day M.DGracie, FACP Pen [place] Mini 09/20/2012 Hx 360unit for use qid dx Noa 31GA. - s 250.00 [place], 10/16/2015 M.DGracie Aldactazide 05/30/2012 Hx Tablets 25-2 90tabs 1 tab PO qd Noa - 5mg [place], 08/09/2012 MVero Avapro 05/03/2012 Hx Tablets 300m 90tabs 1 by mouth once Noa - g daily [place], 12/26/2012 Breonna Hydrochlorothiazi 05/03/2012 Hx Tablets 25mg 90tabs 1 po qd Noa de - [place], 05/30/2012 Breonna Labetalol HCL 04/07/2012 Hx Tablets 100m 180tabs 2 po bid 401.1 Noa - g [place], 05/03/2012 M.D. Metoprolol 03/21/2012 Hx Tablets ER 50mg 30tabs take 1 PO qd 401.1 Noa Succinate ER - 24HR [place], 04/07/2012 M.D. Metoprolol 02/18/2012 Hx Tablets ER 25mg 30tabs 1 po qd 401.1 Noa Succinate ER - 24HR [place], 03/21/2012 M.D. Viagra 01/13/2012 Hx Tablets 50mg 18tabs take 1 or 2 Noa - tablets once [place], 11/11/2013 daily as needed M.D. Fluticasone 04/21/2011 Hx Suspension 50mc 1bottle 1 spray each 786.2 [place] Propionate - g/Ac nostril in am Misty, 10/07/2011 t Breonna, FACP Azithromycin 04/21/2011 Hx Tablets 250m 6tabs two tabs day 786.2 Philomen[place] - g one, one daily Misty, 10/05/2011 till gone Breonna, FACP Zithromax Z-Dnai 08/19/2010 Hx Tablets 250m 1Pack two po Noa - g initially then [place], 08/29/2010 one po daily M.DGracie Lipitor 08/04/2010 Hx Tablets 20mg 90tabs 1 by mouth once Noa - daily [place], 08/17/2013 M.D. Cephalexin 04/02/2010 Hx Capsules 500m 28caps 1 tablet 4 682.0 Noa - g times daily for [place], 08/04/2010 7 days M.D. Losartan 12/16/2009 Hx Tablets 100- 90tabs take 1 tablet Noa Potassium/Hydroch - 25mg by mouth every [place], lorothiazide 05/03/2012 day M.D. Levemir 09/25/2009 Hx Solution 100U 23pens 52 units Noa - nit/ subcutaneously [place], 08/06/2010 ML at bedtime M.DGracie Diovan HCT 09/25/2009 Hx Tablets 320- 90tabs 1 tablet daily Noa - 25mg [place], 12/16/2009 M.D. Felodipine 09/25/2009 Hx Tablets ER 10mg 90tabs 1 tablet by Noa - 24HR mouth once [place], 04/12/2011 daily M.DGracie Lipitor 09/25/2009 Hx Tablets 10mg 90tabs 1 tablet every Noa - night [place], 08/04/2010 M.DGracie Asa 09/25/2009 Hx 81mg 30units 1 tablet daily Noa - [place], 09/28/2009 M.DGracie Econazole Nitrate 09/25/2009 Hx Cream 1% 45g apply to Noa - affected areas [place], 01/08/2010 bid x 2-3 wks M.DGracie Hydrocortisone 09/25/2009 Hx Cream 0.2% 30g topical twice Noa Valerate - daily to area [place], 01/08/2010 as needed M.DGracie Viagra 09/25/2009 Hx Tablets 50mg 18tabs Take 1 Or 2 Noa - Tablets Once [place], 04/12/2011 Daily as Needed M.D. Novolog Penfill Hx Solution 100U 2Box use as directed Miriam tinsley/ SGracie 03/07/2007 PATY Browne M.D. Novolog Penfill Hx Solution 100U 10units Use as Directed Ladarius tinsley/ three times Clemente Garcia, 10/13/2009 ML daily M.Clemente,FACP Felodipine ER Hx Tablets ER 2.5m 30tabs 1 PO qd Ladarius - 24HR ginny Garcia, 09/25/2009 M.DGracie,FACP Metformin HCL Hx Tablets 1000 180tabs take 1 tablet Noa - mg by mouth twice [place], 08/07/2013 daily MVero Levitra Hx Tablets Unknown - 10/07/2011 Warfarin Sodium Hx Tablets 10mg 1 po qd Unknown - 02/18/2012 Levemir Flexpen Hx Solution 100U inject 66 units Unknown - Pen-Inject nit/ under the skin 09/27/2015 ML at bedtime Eplerenone Hx Tablets 25mg 180tabs take 2 tablets Nao - by mouth every Cotton, 08/23/2016 day [...] CPT Code Status Date Vaccine Lot # [id number] Given 01/03/2018 Fluzone High Dose Q2039 Given 01/20/2016 Flu Vaccine NOS 37473 Given 01/27/2015 Fluzone High Dose Q2037 Given 10/09/2014 Fluvirin Im 3Yrs And Older 67550 Given 09/03/2014 Pneumococcal Conjugate Vaccine 13 Valent For [id number] Intramuscular Use 99695 Given 01/18/2013 Flu Vaccine Split Virus Preservative Free For [id number] Indiv 3Yr Older Q2038 Given 01/03/2012 Fluzone Vaccine [id number] 73736 Given 01/08/2010 Influenza Virus 3Yrs & Over 82446 Given 06/10/2009 Influenza Virus Vaccine, Pandemic Formulation 93935 Given 02/18/2009 Influenza Virus 3Yrs & Over 25903 Given 08/16/2007 Zoster (Zostavax) Vital Signs Date Vital Result Comment 02/06/2018 Height 70 inches 5'10" Weight 238.00 [...] SEE RESULT BELOW 1 Sensitiv Gram Stain Rapid Influenza A & 02/05/2018 Influenza A NEGATIVE Negative 2 B Molecular Molecular Influenza B Molecular NEGATIVE Negative Laboratory test 02/05/2018 Rapid Influenza A B SEE RESULT BELOW 3 finding Antigen Laboratory test 02/05/2018 Rapid Strep Negative Negative 4 finding Molecular Laboratory test 02/05/2018 Rapid Strep A SEE RESULT BELOW 5 finding Laboratory test 01/05/2018 Surgical Pathology SEE RESULT BELOW 6, 7 finding Laboratory test 09/29/2017 Surgical Pathology SEE RESULT BELOW 8, 9 finding Wound Culture/Sensi 09/29/2017 Wound/Misc SEE RESULT BELOW 10 Culture-Gram Stain Laboratory test 09/29/2017 Anaerobic Culture SEE RESULT BELOW 11 finding CBC Auto Diff 09/23/2017 White Blood [...] C Reactive Protein 1.50 mg/L < 5.00 12 Erythrocyte Sed Rate 14 mm/Hr 0-40 Lyme Western Blot 09/12/2017 Lyme Disease IgG Ab WB Negative Negative Lyme Disease IgG Bands Present p93,p39 kDa Lyme Disease IgM Ab WB Negative Negative Lyme Disease IgM Bands Present p23 kDa Lyme Disease Interpretation See Comment 13 Laboratory test finding 09/12/2017 Hemoglobin A1c 7.9 High 5-7 Laboratory test finding 09/12/2017 Uric Acid 6.8 mg/dL 4.4-7.6 C Reactive Protein 54.95 mg/L High < 5.00 14 Erythrocyte Sed Rate 23 mm/Hr 0-40 Lyme Disease Serology Positive Negative 15 Rheumatoid Factor < 10 IU/mL <15 Lipid Profile (Trig/Chol/HDL) 09/01/2017 Triglycerides 102 mg/dL 16 Cholesterol 133 mg/dL 17 HDL Cholesterol 54.7 mg/dL 18 LDL Cholesterol 58 mg/dL 19 Comp Metabolic Panel 09/01/2017 Sodium 138 mmol/L [...] Egfr Non- 65.4 >60 Egfr 84.1 >60 20 Urine Microalbumin Random 09/01/2017 Ur Microalbumin (mg/L) 187.4 mg/L Urine Creatinine 126.02 mg/dL Urine Microalbumin/Creatinine 148.7 ug/mg High <31 Liver Function Panel 09/01/2017 Direct Bilirubin 0.30 mg/dL High 0.03- 0.18 Indirect Bilirubin 1.3 mg/dL High 0.3-1.0 Laboratory test 09/01/2017 Vitamin B12 554 pg/mL 180-914 21 finding Laboratory test 09/01/2017 PSA Diagnostic 0.596 ng/mL 0-4.0 22 finding Laboratory test 12/15/2016 D Dimer Quantitative < 200 ng/mL Less Than 230 23 finding Basic Metabolic Panel 12/15/2016 Sodium 135 mmol/L 133-145 Potassium 4.3 mmol/L 3.5-5.0 Chloride 100 mmol/L Low 101-111 Co2 Carbon Dioxide 31 mmol/L 22-32 Anion Gap 4 mmol/L 2-11 Glucose 140 mg/dL High 70-100 Blood Urea Nitrogen 26 mg/dL High 6-24 Creatinine 1.06 mg/dL 0.67-1.17 BUN/Creatinine Ratio 24.5 High 8-20 Calcium 9.4 mg/dL 8.6-10.3 Egfr Non- 67.7 >60 Egfr 87.1 >60 24 Lipid Profile (Trig/Chol/HDL) 09/16/2016 Triglycerides 62 mg/dL 25 Cholesterol 116 mg/dL 26 HDL Cholesterol 51.2 mg/dL 27 LDL Cholesterol 52 mg/dL 28 Comp Metabolic Panel 09/16/2016 Sodium 136 mmol/L [...] Egfr Non- 65.6 >60 Egfr 84.4 >60 29 Urine Microalbumin Random 08/23/2016 Urine Creatinine 96.55 [...] Egfr Non- 72.5 >60 Egfr 93.2 >60 30 CBC Auto Diff 01/15/2016 White Blood Count [...] Egfr Non- 68.5 >60 Egfr 88.1 >60 31 Laboratory test finding 01/15/2016 Uric Acid 6.5 mg/dL 4.4-7.6 Arterial Blood Gas 11/10/2015 PH Arterial 7.41 7.35-7.45 32 Pco2 Arterial 43 mmHg 35-45 32 Po2 Arterial 79 mmHg Low 80-100 32 O2 Saturation Arterial 97.6 % 95-98 32 Base Excess Arterial 2.3 High -2.0-2.0 32, 33 Hco3 Arterial 26.7 mmol/L - 32 Arterial Blood Gas 11/10/2015 PH Arterial 7.38 7.35-7.45 Pco2 Arterial 50 mmHg High 35-45 O2 Saturation Arterial 76.7 % Low 95-98 Base Excess Arterial 3.6 High -2.0-2.0 34 Hco3 Arterial 27.2 mmol/L Po2 Arterial 43 mmHg Low 80-100 Venous Blood Gas 11/10/2015 Venous Blood pH 7.38 7.33-7.43 Venous Pco2 50 mmHg 41-51 Venous Po2 43 mmHg 35-45 Venous O2 Saturation 76.7 % 70-80 Venous Blood Base Excess 3.6 0-4 35 Venous Bicarbonate Hco3 27.2 mmol/L 24-28 Venous Blood Gas 11/10/2015 Venous Blood pH 7.37 7.33-7.43 Venous Pco2 48 mmHg 41-51 Venous Po2 41 mmHg 35-45 Venous O2 Saturation 77.2 % 70-80 Venous Blood Base Excess 1.8 0-4 36 Venous Bicarbonate Hco3 25.8 mmol/L - Pre [...] Egfr Non- 68.7 >60 Egfr 88.3 >60 37 Iron & Iron Binding Capacity 10/30/2015 Iron [...] 0.6-1.6 Albumin/Globulin Ratio 1.15 Impression See Comment 38 Order 10/23/2015 Stress Test, Exercise Nuclear <pending> Lipid Profile 08/26/2015 Triglycerides 100 mg/dL 39 (Trig/Chol/HDL) Cholesterol 126 mg/dL 40 HDL Cholesterol 51.1 mg/dL 41 LDL Cholesterol 55 mg/dL 42 Comp Metabolic Panel 08/26/2015 Sodium 135 mmol/L [...] Egfr Non- 69.4 >60 Egfr 89.3 >60 43 Urine Microalbumin Random 08/26/2015 Ur Microalbumin (mg/L) 89.0 mg/L Urine Creatinine 151.94 mg/dL Urine Microalbumin/Creatinine 58.5 ug/mg High <31 Laboratory test finding 08/26/2015 TSH (Thyroid Stim Horm) 1.79 ?IU/mL 0.34-5.60 44 CBC No Diff 08/26/2015 White Blood Count [...] finding 08/26/2015 Vitamin B12 344 pg/mL 180-914 45 CBC Auto Diff 03/06/2015 White Blood Count 4.9 10^3/uL 4.8-10.8 46 Red Blood Count 4.30 10^6/uL 4.0-5.4 46 Hemoglobin 13.8 g/dL Low 14.0-18.0 46 Hematocrit 41 % Low 42-52 46 Mean Corpuscular Volume 95 fL High 80-94 46 Mean Corpuscular Hemoglobin 32 pg High 27-31 46 Mean Corpuscular HGB Conc 34 g/dL 31-36 46 Red Cell Distribution Width 14 % 10.5-15 46 Platelet Count 189 10^3/uL 150-450 46 Mean Platelet Volume 8 um3 7.4-10.4 46 Abs Neutrophils 3.2 10^3/uL 1.5-7.7 46 Abs Lymphocytes 0.9 10^3/uL Low 1.0-4.8 46 Abs Monocytes 0.6 10^3/uL 0-0.8 46 Abs Eosinophils 0.1 10^3/uL 0-0.6 46 Abs Basophils 0 10^3/uL 0-0.2 46 Abs Nucleated RBC 0 10^3/uL 46 Granulocyte % 65.4 % 38-83 46 Lymphocyte % 18.3 % Low 25-47 46 Monocyte % 12.5 % High 1-9 46 Eosinophil % 2.8 % 0-6 46 Basophil % 1.0 % 0-2 46 Nucleated Red Blood Cells % 0.1 46 Comp Metabolic Panel 03/06/2015 Sodium 135 mmol/L 133-145 46 Potassium 4.3 mmol/L 3.5-5.0 46 Chloride 99 mmol/L Low 101-111 46 Co2 Carbon Dioxide 31 mmol/L 22-32 46 Anion Gap 5 mmol/L 2-11 46 Glucose 72 mg/dL 70-100 46 Blood Urea Nitrogen 15 mg/dL 6-24 46 Creatinine 1.03 mg/dL 0.67-1.17 46 BUN/Creatinine Ratio 14.6 8-20 46 Calcium 9.4 mg/dL 8.6-10.3 46 Total Protein 6.3 g/dL Low 6.4-8.9 46 Albumin 4.1 g/dL 3.2-5.2 46 Globulin 2.2 g/dL 2-4 46 Albumin/Globulin Ratio 1.9 1-3 46 Total Bilirubin 1.40 mg/dL High 0.2-1.0 46 Alkaline Phosphatase 82 U/L 34-104 46 Alt 17 U/L 7-52 46 Ast 14 U/L 13-39 46 Egfr Non- 70.2 >60 46 Egfr 90.3 >60 46, 47 Urine Microalbumin Random 12/17/2014 Ur Microalbumin (mg/L) 24.0 mg/L 48 Urine Creatinine 121.61 mg/dL 48 Urine Microalbumin/Creatinine 19.7 ug/mg <31 48 CBC Auto Diff 12/17/2014 White Blood Count 3.5 10^3/uL Low 4.8-10.8 48 Red Blood Count 4.26 10^6/uL 4.0-5.4 48 Hemoglobin 13.5 g/dL Low 14.0-18.0 48 Hematocrit 41 % Low 42-52 48 Mean Corpuscular Volume 96 fL High 80-94 48 Mean Corpuscular Hemoglobin 32 pg High 27-31 48 Mean Corpuscular HGB Conc 33 g/dL 31-36 48 Red Cell Distribution Width 13 % 10.5-15 48 Platelet Count 165 10^3/uL 150-450 48 Mean Platelet Volume 9 um3 7.4-10.4 48 Abs Neutrophils 2.0 10^3/uL 1.5-7.7 48 Abs Lymphocytes 0.8 10^3/uL Low 1.0-4.8 48 Abs Monocytes 0.5 10^3/uL 0-0.8 48 Abs Eosinophils 0.1 10^3/uL 0-0.6 48 Abs Basophils 0 10^3/uL 0-0.2 48 Abs Nucleated RBC 0 10^3/uL 48 Granulocyte % 58.3 % 38-83 48 Lymphocyte % 22.9 % Low 25-47 48 Monocyte % 14.1 % High 1-9 48 Eosinophil % 3.8 % 0-6 48 Basophil % 0.9 % 0-2 48 Nucleated Red Blood Cells % 0.1 48 Comp Metabolic Panel 12/17/2014 Sodium 136 mmol/L 133-145 48 Potassium 4.6 mmol/L 3.5-5.0 48 Chloride 99 mmol/L Low 101-111 48 Co2 Carbon Dioxide 32 mmol/L 22-32 48 Anion Gap 5 mmol/L 2-11 48 Glucose 119 mg/dL High 70-100 48 Blood Urea Nitrogen 19 mg/dL 6-24 48 Creatinine 1.02 mg/dL 0.67-1.17 48 BUN/Creatinine Ratio 18.6 8-20 48 Calcium 9.3 mg/dL 8.6-10.3 48 Total Protein 6.3 g/dL Low 6.4-8.9 48 Albumin 4.1 g/dL 3.2-5.2 48 Globulin 2.2 g/dL 2-4 48 Albumin/Globulin Ratio 1.9 1-3 48 Total Bilirubin 1.30 mg/dL High 0.2-1.0 48 Alkaline Phosphatase 72 U/L 34-104 48 Alt 17 U/L 7-52 48 Ast 15 U/L 13-39 48 Egfr Non- 71.2 >60 48 Egfr 91.6 >60 48, 49 Laboratory test finding 12/17/2014 Lipase 22 U/L 11.0-82.0 48, 50 Lipid Profile (Trig/Chol/HDL) 12/17/2014 Triglycerides 83 mg/dL 48, 51 Cholesterol 120 mg/dL 48, 52 HDL Cholesterol 49.3 mg/dL 48, 53 LDL Cholesterol 54 mg/dL 48, 54 Laboratory test finding 12/17/2014 PSA Diagnostic 0.588 ng/mL 0-4.0 55 Urine Microalbumin Random 12/13/2014 Ur Microalbumin (mg/L) 18.0 mg/L Urine Creatinine 40.12 mg/dL Urine Microalbumin/Creatinine 44.8 ug/mg High <31 Ua Routine 12/13/2014 Ua Specific [place] 1.005 Ua PH 5 Ua Color yellow Ua Appera clear Ua WBC negative Ua Protein negative Ua Glucose 2000+++ Ua Ketones negative Ua Bilirubin negative Ua Urobilinogen normal Ua Nitrite negative Ua Occult Blood negative Laboratory test 10/16/2014 Point of Care 253 mg/dL High 74-106 56 finding Glucose Laboratory test 10/16/2014 Point of Care 263 mg/dL High 74-106 57 finding Glucose Laboratory test 10/07/2014 Surgical Pathology SEE RESULT BELOW 58 finding Liver Function Panel 01/31/2014 Direct Bilirubin 0.30 mg/dL High 0.03- 0.18 59 Indirect Bilirubin 1.5 mg/dL High 0.3-1.0 59 Lipid Profile (Trig/Chol/HDL) 01/31/2014 Triglycerides 80 mg/dL 59, 60 Cholesterol 125 mg/dL 59, 61 HDL Cholesterol 66.1 mg/dL 59, 62 LDL Cholesterol 43 mg/dL 59, 63 Comp Metabolic Panel 01/31/2014 Sodium 131 mmol/L Low 133-145 59 Potassium 4.1 mmol/L 3.7-5.6 59 Chloride 96 mmol/L Low 101-111 59 Co2 Carbon Dioxide 30 mmol/L 22-32 59 Anion Gap 5 mmol/L 2-11 59 Glucose 132 mg/dL High 70-100 59 Blood Urea Nitrogen 20 mg/dL 6-24 59 Creatinine 1.04 mg/dL 0.67-1.17 59 BUN/Creatinine Ratio 19.2 8-20 59 Calcium 9.2 mg/dL 8.6-10.3 59 Total Protein 6.7 g/dL 6.4-8.9 59 Albumin 4.2 g/dL 3.2-5.2 59 Globulin 2.5 g/dL 2-4 59 Albumin/Globulin Ratio 1.7 1-3 59 Total Bilirubin 1.80 mg/dL High 0.2-1.0 59 Alkaline Phosphatase 73 U/L 34-104 59 Alt 22 U/L 7-52 59 Ast 17 U/L 13-39 59 Egfr Non- 69.6 >60 59 Egfr 89.5 >60 59, 64 Urine Microalbumin Random 01/31/2014 Ur Microalbumin (mg/L) 65.0 mg/L Urine Creatinine 162.43 mg/dL Urine Microalbumin/Creatinine 40.0 High Less Than 31 Laboratory test finding 01/08/2014 PSA Diagnostic 0.589 ng/mL 0-4.0 65 Laboratory test finding 02/28/2013 Luteinizing Hormone 12.11 miu/mL High 2 -12 Testosterone Free & 02/28/2013 Free Testosterone ng/dl 14 ng/dL 9-30 66 Total Testosterone 460 ng/dL 240-950 67 Urine Microalbumin Random 02/23/2013 Ur Microalbumin (mg/L) 47.0 mg/L 68 Urine Creatinine 365.4 mg/dL Urine Microalbumin/Creatinine 12.9 [...] Egfr Non- 73.0 >60 Egfr 93.9 >60 69 Lipid Profile (Trig/Chol/HDL) 02/23/2013 Triglycerides 46 mg/dL 40-200 Cholesterol 120 mg/dL Less than 200 HDL Cholesterol 51 mg/dL 40-60 70 Cholesterol/HDL Ratio 2.4 Average 1-4.44 LDL Cholesterol 59.8 Less Than 100 71 Liver Function Panel 02/23/2013 Direct Bilirubin 0.2 mg/dL 0.1-0.5 Indirect Bilirubin 1.3 mg/dL High 0.3-1.0 Laboratory test finding 02/23/2013 Vitamin B12 406 pg/mL 180-914 72 Laboratory test finding 01/24/2013 Stool Culture (SEE NOTE) 73 O&P Ova & Parasites Full 01/24/2013 Ova Parasite Concen (SEE NOTE) 74 Full Stool For Blood 01/24/2013 Stool Occult Blood (SEE NOTE) 75 Laboratory test finding 01/24/2013 O P: Giardia/Cryptospor (SEE NOTE) 76 Screen Laboratory test finding 01/02/2013 PSA Diagnostic 0.49 ng/mL 0-4.0 77 Laboratory test finding 09/08/2012 Erythrocyte Sed Rate [...] Egfr Non- 65.6 >60 Egfr 84.4 >60 78 Basic Metabolic Panel 05/03/2012 Sodium 133 mmol/L 133-145 Potassium 4.5 mmol/L 3.5-5.0 Chloride 98 mmol/L Low 101-111 Co2 Carbon Dioxide 30.0 mmol/L 22-32 Anion Gap 5.0 mmol/L 2-11 Glucose 178 mg/dL High 70-100 Blood Urea Nitrogen 15 mg/dL 6-24 Creatinine 1.00 mg/dL 0.50-1.40 BUN/Creatinine Ratio 15.0 8-20 Calcium 9.3 mg/dL 8.1-9.9 Egfr Non- 73.2 >60 Egfr 94.2 >60 79 Laboratory test finding 02/11/2012 Vitamin B12 378 pg/mL 180-914 TSH (Thyroid Stimulating Horm) 0.74 MIU/ML 0.34-5.60 Liver Function Panel 02/11/2012 Direct Bilirubin 0.3 mg/dL 0.1-0.5 Indirect Bilirubin 1.7 mg/dL High 0.3-1.0 Laboratory test finding 02/11/2012 PSA Diagnostic 0.67 NG/ML 0-4.0 Lipid Profile (Trig/Chol/HDL) 02/11/2012 Triglycerides 143 mg/dL 40-200 Cholesterol 129 mg/dL Less than 200 80 HDL Cholesterol 56 mg/dL 40-60 81 Cholesterol/HDL Ratio 2.3 AVERAGE 1-4.44 LDL Cholesterol [...] 1-3 Total Bilirubin 2.0 mg/dL High 0.1-1.0 82 Alkaline Phosphatase 75 U/L 30-110 Alt 23 U/L 14-54 Ast 21 U/L 12-42 Egfr Non- 65.6 >60 Egfr 84.4 >60 83 Urine Microalbumin Random 02/11/2012 Ur Microalbumin (Mg/L) 113.0 mg/L 84 Urine Creatinine 165.6 mg/dL Urine Microalbumin/Creatinine 68.2 [...] Eosinophils 0.1 0-0.6 Abs Basophils 0 0-0.2 85 Lipid Profile (Trig/Chol/HDL) 09/10/2011 Triglyceride 70 mg/dL 40-200 Cholesterol 117 mg/dL Less Than 200 86 High Density Lipoprotein 38 mg/dL Low 40-60 87 Cholesterol/HDL Ratio 3.08 AVERAGE 1-4.97 Low Density Lipoprotein 65 mg/dL Less Than 100 88 CBC Auto Diff 09/10/2011 White Blood Count [...] mmol/L 22-32 Anion Gap 7.0 mmol/L 2-11 89 Glucose 78 mg/dL 70-100 BUN 12 mg/dL 6-24 Creatinine 1.1 mg/dL 0.50-1.40 One Over Creatinine 0.90 BUN/Creatinine Ratio 10.9 8-20 Calcium 9.5 mg/dL 8.1-9.9 Total Protein 6.0 GM/DL Low 6.2-8.1 Albumin 3.6 GM/DL 3.2-5.2 Globulin 2.4 GM/DL 2-4 Albumin/Globulin Ratio 1.5 1-3 Bilirubin Total 1.1 mg/dL 0.4-1.5 90 Alkaline Phosphatase 74 U/L 39-117 Alt (SGPT) 20 U/L 17-63 Ast (Sgot) 21 U/L 12-42 eGFR Non- 65.8 > 60 eGFR 84.6 > 60 91 Urine Microalbumin Random 09/10/2011 Microalbumin (MG/L) 61.0 mg/L Urine Creatinine 214.2 mg/dL Rodolfo Alb/Creatinine Ratio 28.5 UG/MG Less Than 30 92 CKMB 08/29/2011 CKMB In NG/ML 3.5 NG/ML 0.3-4.0 % CKMB 2 %MB 0-9 93 Laboratory test finding 08/29/2011 Myoglobin 63.90 NG/ML 17.4-105.7 Laboratory test finding 08/29/2011 Troponin-I 0.07 NG/ML High 0-0.06 94 CPK (Creatine Kinase) 180 U/L 0-200 CBC [...] 22-32 Anion Gap 13.0 mmol/L High 2-11 95 Glucose 168 mg/dL High 70-100 BUN 19 mg/dL 6-24 Creatinine 0.8 mg/dL 0.50-1.40 One Over Creatinine 1.25 BUN/Creatinine Ratio 23.8 High 8-20 Calcium 9.2 mg/dL 8.1-9.9 Total Protein 6.7 GM/DL 6.2-8.1 Albumin 3.8 GM/DL 3.2-5.2 Globulin 2.9 GM/DL 2-4 Albumin/Globulin Ratio 1.3 1-3 Bilirubin Total 1.3 mg/dL 0.4-1.5 96 Alkaline Phosphatase 77 U/L 39-117 Alt (SGPT) 20 U/L 17-63 Ast (Sgot) 20 U/L 12-42 eGFR Non- 95.0 > 60 eGFR 122.2 > 60 97 Comp Metabolic Panel 10/07/2010 Sodium 134 mmol/L Low 135-145 Potassium 4.5 mmol/L 3.5-5.0 Chloride 99 mmol/L Low 101-111 Co2 (Carbon Dioxide) 30.0 mmol/L 22-32 Anion Gap 5.0 mmol/L 2-11 98 Glucose 254 mg/dL High 70-100 BUN 16 mg/dL 6-24 Creatinine 0.90 mg/dL 0.50-1.40 One Over Creatinine 1.10 BUN/Creatinine Ratio 17.8 8-20 Calcium 9.0 mg/dL 8.1-9.9 Total Protein 5.9 GM/DL Low 6.2-8.1 Albumin 3.8 GM/DL 3.2-5.2 Globulin 2.1 GM/DL 2-4 Albumin/Globulin Ratio 1.8 1-3 Bilirubin Total 2.4 mg/dL High 0.4-1.5 99 Alkaline Phosphatase 76 U/L 39-117 Alt (SGPT) 24 U/L 17-63 Ast (Sgot) 23 U/L 12-42 eGFR Non- 83.2 > 60 eGFR 107.0 > 60 100 Lipid Profile (Trig/Chol/HDL) 10/07/2010 Triglyceride 95 mg/dL 40-200 Cholesterol 130 mg/dL Less Than 200 101 High Density Lipoprotein 52 mg/dL 40-60 102 Cholesterol/HDL Ratio 2.50 AVERAGE 1-4.97 Low Density Lipoprotein 59 mg/dL Less Than 100 103 Urine Microalbumin Random 10/07/2010 Microalbumin (MG/L) 68.0 mg/L Urine Creatinine 146.00 mg/dL Rodolfo Alb/Creatinine Ratio 46.5 UG/MG High Less Than 30 104 Lipid Profile (Trig/Chol/HDL) 05/14/2010 Triglyceride 91 mg/dL 40-200 Cholesterol 138 mg/dL Less Than 200 105 High Density Lipoprotein 43 mg/dL 40-60 106 Cholesterol/HDL Ratio 3.21 AVERAGE 1-4.97 Low Density Lipoprotein 77 mg/dL Less Than 100 107 Laboratory test finding 05/14/2010 Vitamin B12 304 [...] 40-200 Cholesterol 156 mg/dL Less Than 200 108 High Density Lipoprotein 47 mg/dL 40-60 109 Cholesterol/HDL Ratio 3.32 AVERAGE 1-4.97 Low Density Lipoprotein 83 mg/dL Less Than 100 110 Liver Function Panel 02/27/2010 Total Protein 6.3 GM/DL 6.2-8.1 Albumin 3.8 GM/DL 3.2-5.2 Globulin 2.5 GM/DL 2-4 Albumin/Globulin Ratio 1.5 1-3 Bilirubin Total 2.2 mg/dL High 0.4-1.5 111 Bilirubin Direct 0.3 mg/dL 0.1-0.5 Indirect Bilirubin 1.9 mg/dL High 0.3-1.0 112 Alkaline Phosphatase 71 U/L 39-117 Alt (SGPT) [...] GM/DL Low 6.2-8.1 Spep Comments (SEE NOTE) 113 CBC With Electronic Diff 02/19/2010 White Blood Count 4.9 CUMM 4.8-10.8 114 Red Cell Count 4.36 CUMM Low 4.6-6.2 114 Hemoglobin 13.9 g/dL Low 14.0-18.0 114 Hematocrit 40 % Low 42-52 114 Mean Corpuscular Volume 92 um3 80-94 114 Mean Corpuscular Hemoglob 32 pg High 27-31 114 Mean Corpuscular HGB Cone 35 g/dL 32-36 114 Redcell Distribution WDTH 13 % 10.5-15 114 Platelet Count 198 CUMM 150-450 114 Mean Platelet Volume 7.5 um3 7.4-10.4 114 Gran % 69.0 % 38-83 114 Lymph % 16.7 % Low 25-47 114 Mononuclear % 11.9 % High 1-9 114 Eosinophil % 1.7 % 0-6 114 Basophil % 0.7 % 0-2 114 Abs Lymphs 0.8 Low 1.0-4.8 114 Abs Mononuclear 0.6 0-0.8 114 Absolute Neutrophil Count 3.4 1.5-7.7 114 Abs Eosinophils 0.1 0-0.6 114 Abs Basophils 0 0-0.2 114, 115 Comp Metabolic Panel 02/19/2010 Sodium 135 mmol/L 135-145 114 Potassium 4.4 mmol/L 3.5-5.0 114 Chloride 100 mmol/L Low 101-111 114 Co2 (Carbon Dioxide) 26.0 mmol/L 22-32 114 Anion Gap 9.0 mmol/L 2-11 114, 116 Glucose 214 mg/dL High 70-100 114, 117 BUN 16 mg/dL 6-24 114 Creatinine 0.90 mg/dL 0.50-1.40 114 One Over Creatinine 1.10 114 BUN/Creatinine Ratio 17.8 8-20 114 Calcium 9.3 mg/dL 8.1-9.9 114 Total Protein 6.7 GM/DL 6.2-8.1 114 Albumin 3.9 GM/DL 3.2-5.2 114 Globulin 2.8 GM/DL 2-4 114 Albumin/Globulin Ratio 1.4 1-3 114 Bilirubin Total 2.2 mg/dL High 0.4-1.5 114, 118 Alkaline Phosphatase 78 U/L 39-117 114 Alt (SGPT) 27 U/L 17-63 114 Ast (Sgot) 27 U/L 12-42 114 eGFR Non- 88.4 > 60 114 eGFR 107.0 > 60 114, 119 Laboratory test finding 02/19/2010 CPK (Creatine Kinase) 122 U/L 0-200 114 Troponin-I (TnI) 0.02 NG/ML 114, 120 Protime 02/19/2010 Inr 0.91 0.82-1.17 114, 121 Protime 10.7 SEC 10.2-14.8 114, 122 Laboratory test finding 02/19/2010 PTT (Aptt) 29.4 25.15-38.53 114 D Dimer Quantitative < 200 Less Than 230 114 Laboratory test finding 10/08/2009 PSA Screening 0.71 NG/ML 0-4 123 Urinalysis W/Microscopic 02/02/2007 Ua Color YELLOW Ictotest-Urine NEGATIVE (NEG) Appearance-Urine CLEAR Bacteria-Urine TRACE Blood-Urine NEGATIVE Negative Epith Cells-Ur RARE Esterase-Urine TRACE Negative Glucose-Urine NEGATIVE Negative Ketones-Urine NEGATIVE Negative Mucus Urine LARGE Nitrite NEGATIVE Negative PH-Urine 6.0 5-9 Protein-Urine 1+ Negative RBC-Urine 0-2 0-2 Lpzrhdfinyhz-Ck-NGN NEGATIVE Negative Specific [place]-Ur 1.017 1.010-1.030 WBC-Urine 0-2 0-5 Comp Metabolic Panel 02/02/2007 One Over Creatinine 1.00 Anion Gap 5.0 mmol/L 2-11 124 Albumin/Globulin Ratio 1.8 1-3 Albumin 4.0 GM/DL [...] 175-781 Hemoglobin A1c 7.8 % High <6.0 125 Lipid Profile 02/02/2007 Cholesterol/HDL Ratio 3.52 AVERAGE 1-4.97 (Trig/Chol/HDL) Cholesterol 169 mg/dL Less Than 200 126 Triglyceride 135 mg/dL 40-200 High Density Lipoprotein 48 mg/dL 40-60 Low Density Lipoprotein 94 mg/dL Less Than 100 127 1 SEE RESULT BELOW Name: MARIE SWEENEY : [address]: Moraima Montague DO Acct: [id number] Unit: [id number] AGE: 78 Location: [place] [address] Re02/06/18 SEX: M Status: ADM IN SPEC: [id number] VENU: 02/06/[address]: Bob Bertrand MD REQ: [id number] RECD: 02/06/18 STATUS: RES MAICOHR DR: Noa Fernandez MD _ SOURCE: SPUTUM,EXP SPDESC: ORDERED: Sputum Cult/GS Procedure Result Reported Site Sputum Smear Final 02/07/18- 0801 ML 4+ Neutrophils 1+ Epithelial Cells 4+ Gram Positive Cocci 1+ Gram Negative Bacilli 2+ Gram Positive Diplococci 1+ Gram Negative Coccobacilli Sputum Culture PENDING * ML - Main Lab . END OF REPORT DEPARTMENT OF PATHOLOGY, [address] [place] [address] Tavo Patel M.D. Director [facility] # [id number] 2 Dba Developer: [id number] 3 SEE RESULT BELOW Name: MARIE SWEENEY : [address]: Kenny Ortega MD Acct: [id number] Unit: [id number] AGE: 78 Location: ED Re02/05/18 SEX: M Status: REG ER SPEC: [id number] VENU: 02/05/[address]: Kenny Ortega MD REQ: [id number] RECD: 02/05/18 STATUS: LIZZETTE NINA DR: Noa Fernandez MD _ SOURCE: NASOPHARYN SPDESC: ORDERED: Flu A B Request Procedure Result Reported Site Rapid Influenza A B Request Final 02/05/18- 1641 ML Specimen received for Influenza A/B Molecular testing * ML - Main Lab . END OF REPORT DEPARTMENT OF PATHOLOGY, [address] [place] [address] Tavo Patel M.D. Director [facility] # [id number] 4 Dba Developer: [id number] 5 SEE RESULT BELOW Name: MARIE SWEENEY : [address]: Kenny Ortega MD Acct: [id number] Unit: [id number] AGE: 78 Location: ED Re02/05/18 SEX: M Status: REG ER SPEC: [id number] VENU: 02/05/[address]: Ayla JOHNSON REQ: [id number] RECD: 02/05/18 STATUS: LIZZETTE ANSARI DR: [facility] Noa Fernandez MD _ SOURCE: THROAT SPDESC: ORDERED: Strep A Request Procedure Result Reported Site Rapid Strep A Request Final 02/05/18- 1534 ML Specimen received for Rapid Strep A Molecular testing * ML - Main Lab . END OF REPORT DEPARTMENT OF PATHOLOGY, [address] [place] [address] Tavo Patel M.D. Director [facility] # [id number]-[id number]:Morphology: pearly telangiectatic papule;DDX: Basal Cell Carcinoma; Location: right frontal 7 SEE RESULT BELOW Name: PATELMARIE : [address]: Mami Lou MD Acct: [id number] Unit: [id number] AGE: 77 Location: [facility] Re01/05/18 SEX: M Status: REG REF SPEC: [id number] VENU: 01/05/18-[address] [facility] DR: Mami Lou MD REQ: [id number] RECD: 01/05/18-1715 STATUS: MARLEN ANSRAI DR: Noa Fernandez MD _ ORDERED: LEVEL 4 COMMENTS: [id number] FINAL DIAGNOSIS Skin, right frontal scalp, biopsy: [...] 1013 END OF REPORT DEPARTMENT OF PATHOLOGY, [address] [place] [address] Tavo Patel M.D. Director [facility] # [id number] 9 SEE RESULT BELOW Name: MARIE SWEENEY : [address]: Jorden Silva MD Acct: [id number] Unit: [id number] AGE: 77 Location: [facility] Re09/29/17 SEX: M Status: DEP SDC SPEC: [id number] VENU: 09/29/17-[address] [facility] DR: Jorden Silva MD REQ: [id number] RECD: 09/29/17 STATUS: SOUT _ ORDERED: Decal, LEVEL 3 COMMENTS: [id number] FINAL DIAGNOSIS Bone, left index finger, middle [...] 1149 END OF REPORT DEPARTMENT OF PATHOLOGY, [address] [place] [address] Tavo Patel M.D. Director [facility] # [id number] 10 SEE RESULT BELOW Name: MARIE SWEENEY : [address]: Jorden Silva MD Acct: [id number] Unit: [id number] AGE: 77 Location: [facility] Re09/29/17 SEX: M Status: DEP SDC SPEC: [id number] VENU: 09/29/[address] [facility] DR: Jorden Silva MD REQ: [id number] RECD: 09/29/17 STATUS: LIZZETTE ANSARI DR: oNa Fernandez MD _ SOURCE: FINGER SPDESC:INDEX LEFT ORDERED: Culture Stain Procedure Result Reported Site Wound/Misc Gram Stain Final 09/30/17- 35 ML 1+ Neutrophils No Organisms Seen Wound/Misc Culture Final 10/03/17- 07 ML No Growth Day 4 * ML - Main Lab . END OF REPORT DEPARTMENT OF PATHOLOGY, [address] [place] [address] Tavo Patel M.D. Director [facility] # [id number] 11 SEE RESULT BELOW Name: PATELMARIE : [address]: Jorden Silva MD Acct: [id number] Unit: [id number] AGE: 77 Location: [facility] Re09/29/17 SEX: M Status: DEP SDC SPEC: [id number] VENU: 09/29/17-[address] [facility] DR: Jorden Silva MD REQ: [id number] RECD: 09/29/17 STATUS: LIZZETTE NINA DR: Noa Fernandez MD _ SOURCE: WOUND SPDESC:INDEX LEFT ORDERED: Anaerobic Cult Procedure Result Reported Site Anaerobic Culture Final 10/03/17- 806 ML No Growth Day 4 * ML - Main Lab . END OF REPORT DEPARTMENT OF PATHOLOGY, [address] [place] [address] Tavo Patel M.D. Director [facility] # [id number] 12 Acute inflammation: >10.00 13 Specific serologic response to B. burgdorferi infection [...] screening test (e.g., EIA). Test Performed by: [place] [address] 14 Acute inflammation: >10.00 15 Not diagnostic. Supplemental testing by immunoblot has been ordered by reflex. Test Performed by: [place] [address] 16 Desirable: <150 Borderline High: 150-199 High: 200-499 Very High: >500 17 Desirable: <200 Borderline High: 200-239 High: >239 18 Low: <40 Desirable: 40-60 High: >60 19 Desirable: <100 Near Optimal: 100-129 Borderline High: 130-159 High: 160-189 Very High: >189 20 Because ethnic data is not always readily [...] 15-29 5 Kidney failure <15 (or dialysis) 21 Normal Range 180 to 914 Indeterminate Range 145 to 180 Deficient Range <145 22 Serum levels of PSA measured using the [employer] DXI Hybritech immunoassay should not be interpreted [...] methods or kits cannot be used interchangeably. 23 Please note: The following may produce a false positive D Dimer test: - Rheumatoid factor greater than 60 IU/ml - Plasma hemoglobin greater than 0.05 gm/dl - Bilirubin greater than 50 mg/dl - Lipids greater than 1000 mg/dl - FDP greater than 20 ug/ml 24 Because ethnic data is not always readily [...] 15-29 5 Kidney failure <15 (or dialysis) 25 Desirable <150 Borderline high 150-199 High 200-499 Very High >500 26 Desirable <200 Borderline high 200-239 High >239 27 Low <40 Desirable: 40-60 High: >60 28 Desirable: <100 mg/dL Near Optimal: 100-129 mg/dL Borderline High: 130-159 mg/dL High: 160-189 mg/dL Very High: >189 mg/dL 29 Because ethnic data is not always [...] 5 Kidney failure <15 (or dialysis) 30 Because ethnic data is not always readily [...] 15-29 5 Kidney failure <15 (or dialysis) 31 Because ethnic data is not always readily [...] 15-29 5 Kidney failure <15 (or dialysis) 32 ARTERIAL ACCESS SITE 33 Reference ranges based on room air. 34 Reference ranges based on room air. 35 Reference ranges based on room air. 36 Reference ranges based on room air. 37 Because ethnic data is not always readily [...] 15-29 5 Kidney failure <15 (or dialysis) 38 RESULT: No apparent monoclonal protein on serum electrophoresis. Test Performed by: [address] [address] Planting Material Unloader: Clifton Bruce II, M.D., Ph.D. 39 Desirable <150 Borderline high 150-199 High 200-499 Very High >500 40 Desirable <200 Borderline high 200-239 High >239 41 Low <40 Desirable: 40-60 High: >60 42 Desirable: <100 mg/dL Near Optimal: 100-129 mg/dL Borderline High: 130-159 mg/dL High: 160-189 mg/dL Very High: >189 mg/dL 43 Because ethnic data is not always readily [...] 15-29 5 Kidney failure <15 (or dialysis) 44 FASTING 10 HOUR Copy Result to: [facility] ([id number]) 45 Normal Range 180 to 914 Indeterminate Range 145 to 180 Deficient Range <145 46 Copy Result to: [facility] ([id number]) 47 Because ethnic data is not always readily [...] 15-29 5 Kidney failure <15 (or dialysis) 48 FASTING 10 HOUR 49 Because ethnic data is not always readily [...] 15-29 5 Kidney failure <15 (or dialysis) 50 FASTING 10 HOUR 51 Desirable <150 Borderline high 150-199 High 200-499 Very High >500 52 Desirable <200 Borderline high 200-239 High >239 53 Low <40 Desirable: 40-60 High: >60 54 Desirable: <100 mg/dL Near Optimal: 100-129 mg/dL Borderline High: 130-159 mg/dL High: 160-189 mg/dL Very High: >189 mg/dL 55 Serum levels of PSA measured using the [employer] DXI Hybritech immunoassay should not be interpreted [...] methods or kits cannot be used interchangeably. 56 Dba Developer: [id number] ALEX HARRELL 57 Dba Developer: [id number] GOLDIE PÉREZ 58 SEE RESULT BELOW Name: PATELMARIE : [address]: Damian Goldberg MD Acct: [id number] Unit: [id number] AGE: 74 Location: ENDO Re10/07/14 SEX: M Status: REG REF SPEC: [id number] VENU: 10/07/[address] [facility] DR: Damian Goldberg MD REQ: [id number] RECD: 10/07/141319 STATUS: MARLEN ANSARI DR: Noa Fernandez MD [...] performed at Main Lab DEPARTMENT OF PATHOLOGY, [address] [place] [address] Tavo Patel M.D. Director [facility] # [id number] PT IS FASTING 60 Desirable <150 Borderline high 150-199 High 200-499 Very High >500 61 Desirable <200 Borderline high 200-239 High >239 62 Low <40 Desirable: 40-60 High: >60 63 Desirable <100 Near Optimal 100-129 Borderline high 130-159 High 160-189 Very High >189 64 Because ethnic data is not always readily [...] 15-29 5 Kidney failure <15 (or dialysis) 65 Serum levels of PSA measured using the [employer] DXI Hybritech immunoassay should not be interpreted [...] methods or kits cannot be used interchangeably. 66 Testing performed by [facility]. 67 Testing performed by Liquid Chromatography-Tandem Mass Spectrometry (LC-MS/MS). Test Performed by: [address] [address] Plant[employer] Material Unloader: Bon Rivers III, M.D. 68 Microalbuminuria in a random sample is defined as: Microalbumin/Creatinine ratio of 30-299 ug/mg. 69 Because ethnic data is not always [...] 5 Kidney failure <15 (or dialysis) 70 HDL Interpretation: Undesirable: High Risk: Less than 40 mg/dL Desirable: Low Risk: Greater than 60 mg/dL 71 LDL Interpretation: Low Risk Optimal Level: LDL Less than 100 mg/dL Near or Above Optimal: LDL 100-129 mg/dL Borderline High Risk: LDL 130-159 mg/dL High Risk: LDL 160-189 mg/dL Very High Risk: LDL Greater than 189 mg/dL 72 FASTING 73 RUN DATE: 01/26/13 [facility] LIVE PAGE 1 RUN TIME: [address] [place], [place] [address] Specimen Inquiry Name: MARIE SWEENEY DOB: [address]: Noa Fernandez MD Acct: [id number] Unit: [id number] AGE: 73 Location: [facility] Re01/24/13 SEX: M Status: REG REF SPEC: [id number] VENU: 01/24/[address] [facility] DR: Noa Fernandez MD REQ: [id number] RECD: 01/24/13 STATUS: RES _ SOURCE: STOOL SPDESC: ORDERED: Hemoccult, Stool Culture, O P (Full), O P: Claudy/Crypt QUERIES: Medent Number [id number] Procedure Result Verified Site Stool Culture Final [...] performed at Main Lab DEPARTMENT OF PATHOLOGY, [facility] [address] [place], [place] [address] Tavo Patel M.D. Director [facility] Permit #[id number] RUN DATE: 01/26/13 [facility] LIVE PAGE 2 RUN TIME: 4568 [facility] [place], [place] [address] Specimen Inquiry Patient: MARIE SWEENEY [id number] (Continued) Specimen: [id number] Collected: 01/24/13 Received: 01/24/13890 (Continued) Procedure Result Verified Site Shiga Toxin [...] performed at Main Lab DEPARTMENT OF PATHOLOGY, [facility] [address] [place], [place] [address] aTvo Patel M.D. Director [facility] Permit #[id number] 74 RUN DATE: 01/25/13 [facility] LIVE PAGE 1 RUN TIME: 8979 [facility] [place], [place] [address] Specimen Inquiry Name: MARIE SWEENEY : [address]: Noa Fernandez MD Acct: [id number] Unit: [id number] AGE: 73 Location: [facility] Re01/24/13 SEX: M Status: REG REF SPEC: [id number] VENU: 01/24/[address]: Noa Fernandez MD REQ: [id number] RECD: 01/24/13 STATUS: RES _ SOURCE: STOOL SPDESC: ORDERED: Hemoccult, Stool Culture, O P (Full), O P: Claudy/Crypt QUERIES: Medent Number [id number] Procedure Result Verified Site Stool Culture Preliminary [...] performed at Main Lab DEPARTMENT OF PATHOLOGY, [facility] [place] [address] Tavo Patel M.D. Director [facility] Permit #[id number] 75 RUN DATE: 01/24/13 [facility] LIVE PAGE 1 RUN TIME: 1603 [facility] [place], [place] [address] Specimen Inquiry Name: MARIE SWEENEY : [address]: Noa Fernandez MD Acct: [id number] Unit: [id number] AGE: 73 Location: [facility] Re01/24/13 SEX: M Status: REG REF SPEC: [id number] VENU: 01/24/[address] [facility] [address]: Noa Fernandez MD REQ: [id number] RECD: 01/24/13 STATUS: RES _ SOURCE: STOOL SPDESC: ORDERED: Hemoccult, Stool Culture, O P (Full), O P: Giar/Crypt QUERIES: Medent Number [id number] Procedure Result Verified Site Stool Culture PENDING Stool Specimen Description Final 01/24/13- 1545 ML Stool Color Brown Stool Form Nonformed Stool Consistency Soft Shiga Toxin 1 2 PENDING Stool Occult Blood Final 01/24/13- 1603 ML Stool Occult Blood Negative Ova Parasite Concen Full PENDING O P: Giardia/Cryptospor Screen PENDING END OF REPORT * ML=Testing performed at Main Lab DEPARTMENT OF PATHOLOGY, [address] [place] [address] Tavo Patel M.D. Director [facility] Permit #[id number] RUN DATE: 01/26/13 [facility] LIVE PAGE 1 RUN TIME: [address] [place] [address] Specimen Inquiry Name: PATELMARIE : [address]: Noa Fernandez MD Acct: [id number] Unit: [id number] AGE: 73 Location: [facility] Re01/24/13 SEX: M Status: REG REF SPEC: [id number] VENU: 01/24/[address] [facility] [address]: Noa Fernandez MD REQ: [id number] RECD: 01/24/132856 STATUS: COMP _ SOURCE: STOOL SPDESC: ORDERED: Hemoccult, Stool Culture, O P (Full), O P: Giar/Crypt QUERIES: Medent Number [id number] Procedure Result Verified Site Stool Culture Final [...] performed at Main Lab DEPARTMENT OF PATHOLOGY, [facility] [place] [address] Tavo Patel M.D. Director [facility] Permit #[id number] RUN DATE: 01/26/13 [facility] LIVE PAGE 2 RUN TIME: [address] [place] [address] Specimen Inquiry Patient: MARIE SWEENEY [id number] (Continued) Specimen: [id number] Collected: 01/24/13 Received: 01/24/13 (Continued) Procedure Result [...] is requested. Contact the Microbiology Department at [phone]. TEST LIMITATIONS: As with all diagnostic procedures, [...] performed at Main Lab DEPARTMENT OF PATHOLOGY, [address] [place] [address] Tavo Patel M.D. Director [facility] Permit #[id number] 77 Serum levels of PSA measured using the [employer] DXI Hybritech immunoassay should not be interpreted [...] methods or kits cannot be used interchangeably. 78 Because ethnic data is not always readily [...] 15-29 5 Kidney failure <15 (or dialysis) 79 Because ethnic data is not always readily [...] 15-29 5 Kidney failure <15 (or dialysis) 80 Desirable: Less than 200 MG/DL Borderline-High Risk: 200-239 MG/DL High-Risk: 240 MG/DL and over 81 HDL Interpretation: Undesirable: High Risk: Less than 40 MG/DL Desirable: Low Risk: Greater than 60 MG/DL 82 A metabolite of Naproxen, O-desmethylnaproxen, has been shown to interfere with the Jendrassik-Norma method for measuring total bilirubin. Samples from patients who have taken Naproxen have shown spurious elevation in total bilirubin levels. 83 Because ethnic data is not always [...] 5 Kidney failure <15 (or dialysis) 84 Microalbuminuria in a random sample is defined as: Microalbumin/Creatinine ratio of 30-299 ug/mg. 85 Lymphopenia % 86 CHOLESTEROL INTERPRETATION: Desirable: Less than 200 MG/DL Borderline-High Risk: 200-239 MG/DL High-Risk: 240 MG/DL and over 87 HDL INTERPRETATION: Undesirable: High Risk: Less than 40 MG/DL Desirable: Low Risk: Greater than 60 MG/DL 88 LDL INTERPRETATION: Low Risk Optimal Level: LDL Less than 100 MG/DL Near or Above Optimal: LDL 100-129 MG/DL Borderline High Risk: LDL 130-159 MG/DL High Risk: LDL 160-189 MG/DL Very High Risk: LDL Greater than 189 MG/DL 89 Anion gap measurement may be of limited value in the presence of any alkalosis, especially in a combined acid base disorder. . 90 A metabolite of Naproxen, O-desmethylnaproxen, has been shown to interfere with the Jendrassik-Norma method for measuring total bilirubin. Samples from patients who have taken Naproxen have shown spurious elevation in total bilirubin levels. 91 Because ethnic data is not always readily [...] 15-29 5 Kidney failure <15 (or dialysis) 92 MICROALBUMINURIA IN A RANDOM SAMPLE IS DEFINED : MICROALBUMIN/CREATININE RATIO OF 30-299 ug/mg. . 93 INTERPRETATION %CK-MB < 5% NOT SUPPORTIVE OF DIAGNOSIS OF ME 5 - <10% INDETERMINATE; SUGGEST SERIAL STUDIES IF CLINICALLY INDICATED 10% OR > CONSISTENT WITH DIAGNOSIS OF ME . 94 New Reference Range and Interpretation effective 01/26/2002 TnI (ng/ml) INTERPRETATION Less Than 0.06 ng/mL NOT SUPPORTIVE OF DIAGNOSIS OF ME 0.06 - 0.50 ng/ml INDETERMINATE: SUGGEST SERIAL STUDIES IF CLINICALLY INDICATED. Greater than 0.5 ng/mL CONSISTENT WITH DIAGNOSIS OF ME . 95 Anion gap measurement may be of limited value in the presence of any alkalosis, especially in a combined acid base disorder. . 96 A metabolite of Naproxen, O-desmethylnaproxen, has been shown to interfere with the Jendrassik-Dellwood method for measuring total bilirubin. Samples from [...] ethnic data is not always readily available, 0 this report includes an eGFR for both [...] failure <15 (or dialysis) 10 CHOLESTEROL INTERPRETATION: 1 Desirable: Less than 200 MG/DL Borderline-High Risk: 200-239 MG/DL High-Risk: 240 MG/DL and over 10 HDL INTERPRETATION: 2 Undesirable: High Risk: Less than 40 MG/DL Desirable: Low Risk: Greater than 60 MG/DL 10 LDL INTERPRETATION: 3 Low Risk Optimal Level: LDL Less than 100 MG/DL Near or Above Optimal: LDL 100-129 MG/DL Borderline High Risk: LDL 130-159 MG/DL High Risk: LDL 160-189 MG/DL Very High Risk: LDL Greater than 189 MG/DL 10 MICROALBUMINURIA IN A RANDOM SAMPLE IS DEFINED : 4 MICROALBUMIN/CREATININE RATIO OF 30-299 ug/mg. . 10 CHOLESTEROL INTERPRETATION: 5 Desirable: Less than 200 MG/DL Borderline-High Risk: 200-239 MG/DL High-Risk: 240 MG/DL and over 10 HDL INTERPRETATION: 6 Undesirable: High Risk: Less than 40 MG/DL Desirable: Low Risk: Greater than 60 MG/DL 10 LDL INTERPRETATION: 7 Low Risk Optimal Level: LDL Less than 100 MG/DL Near or Above Optimal: LDL 100-129 MG/DL Borderline High Risk: LDL 130-159 MG/DL High Risk: LDL 160-189 MG/DL Very High Risk: LDL Greater than 189 MG/DL 10 CHOLESTEROL INTERPRETATION: 8 Desirable: Less than 200 MG/DL Borderline-High Risk: 200-239 MG/DL High-Risk: 240 MG/DL and over 10 HDL INTERPRETATION: 9 Undesirable: High Risk: Less than 40 MG/DL Desirable: Low Risk: Greater than 60 MG/DL 11 LDL INTERPRETATION: 0 Low Risk Optimal Level: LDL Less than 100 MG/DL Near or Above Optimal: LDL 100-129 MG/DL Borderline High Risk: LDL 130-159 MG/DL High Risk: LDL 160-189 MG/DL Very High Risk: LDL Greater than 189 MG/DL 11 A metabolite of Naproxen, O-desmethylnaproxen, has been 1 shown to interfere with the Jendrassik-Dellwood method for measuring total bilirubin. Samples from patients who have taken Naproxen have shown spurious elevation in total bilirubin levels. 11 Please note updated reference range, effective 11/13/09 2 11 NORMAL ELECTROPHORETIC PATTERN. 3 11 COMMENTS: N 4 11 Lymphopenia % 5 11 Anion gap measurement may be of limited value in the 6 presence of any alkalosis, especially in a combined acid base disorder. . 11 Note change in reference range as of 12/14/07. The 7 change was based on recommendations from the [employer]. 11 A metabolite of Naproxen, O-desmethylnaproxen, has been 8 shown to interfere with the Jendrassik-Norma method for measuring total bilirubin. Samples from patients who have taken Naproxen have shown spurious elevation in total bilirubin levels. 11 Because ethnic data is not always readily available, 9 this report includes an eGFR for both [...] New Reference Range and Interpretation effective 01/26/2002 0 TnI (ng/ml) INTERPRETATION Less Than 0.06 ng/mL NOT SUPPORTIVE OF DIAGNOSIS OF ME 0.06 - 0.50 ng/ml INDETERMINATE: SUGGEST SERIAL STUDIES IF CLINICALLY INDICATED. Greater than 0.5 ng/mL CONSISTENT WITH DIAGNOSIS OF ME . 12 Recommended INR for Patients 1 on Oral Anticoagulants Prophylaxis 2.0 - 3.0 Treatment of thrombosis 2.0 - 3.0 Prevention of embolism 2.0 - 3.0 Prevention of embolism from prosthetic heart valves 2.5 - 3.5 12 DIAGNOSIS,TREATMENT,AND THERAPY MUST BE BASED ON THE INR 2 VALUE ALONE. 12 * 3 SERUM LEVELS OF PSA MEASURED USING THE [employer] ACCESS HYBRITECH IMMUNOASSAY SHOULD NOT BE INTERPRETED ABSOLUTE EVIDENCE OF THE PRESENCE OR ABSENCE OF DISEASE. THE PSA VALUE SHOULD BE USED IN CONJUNCTION WITH OTHER PERTINENT CLINICAL DIAGNOSTIC PROCEDURES. 12 Anion gap measurement may be of limited value in the 4 presence of any alkalosis, especially in a combined acid base disorder. . 12 THERAPEUTIC TARGET FOR THE TREATMENT OF DIABETES 5 MELLITUS PATIENTS IS <7% HBA1C, AND IN SELECTIVE PATIENTS <6.0%. PLEASE REFER TO [place] DIABETIC CARE GUIDELINES FOR FURTHER INFORMATION. 12 Classification: Desirable 6 . 12 CALCULATED LDL APPROXIMATES THE VALUE OF A DIRECT LDL 7 MEASUREMENT. Classification: Optimal Level . Procedures Date CPT Code Description Status 11/22/2017 Diabetic Retinal Eye Exam Completed 09/29/2017 Excise Biopsy Bone Deep Completed 09/29/2017 Inject/Drain Joint/Bursa Small W/O US Completed 09/29/2017 [facility]cise Biopsy Bone Deep Completed 09/29/2017 Inject/Drain Joint/Bursa Small W/O US Completed 04/12/2017 Diabetic Retinal Eye Exam Completed 02/23/2017 20053 EKG Tracing & Interpretation Completed 10/19/2016 Diabetic Retinal Eye Exam Completed 05/05/2016 25035 Inject Tendon Sheath Or Ligament Aponeurosis Eg Plantar Completed Fascia 04/08/2016 Diabetic Retinal Eye Exam Completed 11/10/2015 22165 Cardiac Cath,LT Hrtmincl Intraprocedural Ink LT Completed Ventricul Mammary 10/23/2015 26639 Stress Test Completed 10/23/2015 78280 Myocardial Perfusion Imaging Tomographic (Spect) Completed Multiple Studies 10/21/2015 11658 ECHO Transthoracic, Real-Time 2D With Doppler And Color Completed Flow 10/07/2015 Diabetic Retinal Eye Exam Completed 09/26/2015 21105 EKG Tracing & Interpretation Completed 09/25/2015 24727 Inject Tendon Sheath Or Ligament Aponeurosis Eg Plantar Completed Fascia 09/23/2015 00371 Carotid Doppler,Bilateral Completed 09/23/2015 33221 Carotid Doppler,Bilateral Completed 02/06/2015 36637 Inject Tendon Sheath Or Ligament Aponeurosis Eg Plantar Completed Fascia 10/11/2014 69568 EKG Tracing & Interpretation Completed 10/07/2014 Colonoscopy Completed 09/19/2014 Diabetic Retinal Eye Exam Completed 03/12/2014 Diabetic Retinal Eye Exam Completed 01/17/2014 09039 Rad Exam; Wrist, Comp, Min 3 Views Completed 01/17/2014 15490 Inject Tendon Sheath Or Ligament Aponeurosis Eg Plantar Completed Fascia 08/17/2013 73046 Carotid Doppler,Bilateral Completed 08/14/2013 96003 ECHO Transthoracic, Real-Time 2D With Doppler And Color Completed Flow 08/08/2013 19451 Myocardial Perfusion Imaging Tomographic (Spect) Completed Multiple Studies 08/08/2013 46411 Stress Test Completed 02/18/2012 Diabetic Retinal Eye Exam Completed 08/20/2011 Diabetic Retinal Eye Exam Completed 04/12/2011 99987 EKG Tracing & Interpretation Completed 09/29/2009 74877 EKG Tracing & Interpretation Completed 08/19/2008 79550 EKG Tracing & Interpretation Completed 03/08/2007 20071 EKG Tracing & Interpretation Completed 05/03/2006 82686 Pulse Doppler & Continuous Wave Completed 05/03/2006 05002 Echocardiogram Completed 05/03/2006 21968 Echocardiogram Completed 05/03/2006 34673 Color Doppler Completed 05/03/2006 25533 Color Doppler Completed Encounters Type Date Location Provider CPT E/M Dx Office Visit 11/07/2017 [facility] Internal Medicine Noa Fernandez 30409 Z00.00 1:20p - Alf Ravi I10 E11.21 E78.5 R19.5 Office Visit 10/07/2017 8:45a [facility] [place] [address] M79.645 C.M.A. Z48.02 [facility] 87840 M79.645 Infectious Diseases Breonna Washburn Office Visit 09/27/2017 2:40p [facility] Internal Medicine Ladarius Garcia, 41987 M86.242 - Alf Ravi,FACP Office Visit 09/12/2017 3:00p [facility] Internal Medicine Ladarius Garcia, 94790 E11.9 - Andry Archer M.D.,FACP M01.x42 M10.9 Office Visit 05/02/2017 2:00p [facility] Internal Medicine Noa Fernandez 06809 I10 Alf Ravi Office Visit 02/23/2017 11:45a [facility] Jerman Russell 83703 I10 Yesenia Ravi I25.118 I35.0 Office Visit 12/15/2016 3:30p [facility] Internal Medicine Noa Fernandez 30514 R07.89 - Andry Archer M.D. Office Visit 11/04/2016 2:40p [facility] Internal Medicine Noa Fernandez 83322 Z00.00 - Alf Ravi I10 Office Visit 08/23/2016 2:00p [facility] Internal Medicine Noa Fernandez M.D. 63526 Daphne - Alf R01.1 R19.4 Office Visit 04/21/2016 1:45p [facility] Patricia Mata, 81580 G47.33 Services Of [facility] HITESH RN, [employer]- Office Visit 03/25/2016 10:40a [facility] Internal Medicine Noa Fernandez 05161 I10 - Alf Ravi Office Visit 03/04/2016 10:00a [facility] Internal Medicine Noa Fernandez 39224 I10 - Alf Ravi L40.8 Office Visit 01/30/2016 10:00a [facility] Jerman Russell 67404 I10 MVero I25.118 I35.0 Office Visit 11/17/2015 9:00a [facility] ELIZABETH Giron 33447YHJ I10 I25.118 I35.0 Office Visit 10/24/2015 3:45p [facility] Jerman Russell 32601 I25.118 Yesenia Ravi I35.0 Office Visit 09/26/2015 9:45a [facility] Jerman Russell 43153 I10 MVero I25.118 R01.1 Office Visit 09/25/2015 3:20p [facility] Griselda Gore, 86652 M65.4 C.M.A. RPA-C Office Visit 03/03/2015 9:40a [facility] Internal Medicine Noa Fernandez 81983 I1Any - Alf Ravi R10.31 Office Visit 01/09/2015 1:00p [facility] [place] [address] 327.23 Services Of [facility] 278.00 Office Visit 12/13/2014 9:20a [facility] [place] [address] 789.03 - [place] Office Visit 10/11/2014 2:30p [facility] Umm Russell 80314 401.1 [facility] Breonna 414.01 Office Visit 10/09/2014 3:45p [facility] [place] [address] 327.23 Services Of [facility] 278.00 Office Visit 10/09/2014 2:00p [facility] Internal Medicine - Pineda Akhtar, SYLVAIN 59233 V72.84 [place] 366.9 250.00 401.1 327.23 414.01 Office Visit 08/22/2014 4:00p [facility] Internal Medicine Noa Fernandez 28020 V70.0 - [place] M.DGracie 401.1 250.00 327.23 Office Visit 08/07/2014 2:30p [facility] Internal Medicine Seun Patel, SYLVAIN 20787 843.8 - [address] Office Visit 02/27/2014 10:40a [facility] Internal Medicine Noa Fernandez 94383 401.1 - [place] M.DGracie Office Visit 01/17/2014 1:15p Orth[facility] Services Belkis Thorpe, 25554 727.04 Of Fiona Ravi Office Visit 09/06/2013 9:30a [facility] Jerman Russell 26304 414.01 Yesenia Ravi 786.05 Office Visit 08/17/2013 3:40p [facility] Internal Medicine Noa Fernandez 56609 V70.0 - [place] M.D. 724.3 414.01 250.02 Office Visit 08/10/2013 1:30p [facility] Nia Bishop M.D. 39740 401.1 [facility] 786.51 414.01 785.2 785.9 Office Visit 01/18/2013 8:40a [facility] Internal Medicine Noa Fernandez, 64806 401.1 - Brok[place]sharyn Ravi 787.91 V04.81 Office Visit 10/10/2012 11:00a [facility] Internal Medicine Philomena Jay M.D., 98068 786.2 - [place] FACP Office Visit 08/11/2012 1:00p [facility] Internal Medicine Noa Fernandez 17583 401.1 - [place] Breonna 784.0 Office Visit 05/02/2012 3:00p [facility] Internal Medicine Noa Fernandez 55380 401.1 - [place] DashaDGracie 784.0 Office Visit 04/07/2012 9:40a [facility] Internal Medicine Noa Fernandez 90914 V70.0 - [place] M.D. 401.1 785.9 Office Visit 03/21/2012 9:00a [facility] Internal Medicine Noa Cotton, 17752 401.1 - [place] M.D. Office Visit 02/28/2012 2:20p [facility] Internal Medicine Marsha Kline, N.P. 59495 380.4 - [place] Office Visit 02/18/2012 1:00p [facility] Internal Medicine Noa Cotton, 54031 401.1 - [place] M.D. 724.5 Office Visit 01/03/2012 2:40p [facility] Internal Medicine Noa Cotton, 48423 V04.81 - [place] M.D. 401.1 238.2 Office Visit 11/18/2011 2:40p [facility] Internal Medicine Noa Cotton, 88001 401.1 - [place] M.D. Office Visit 10/07/2011 11:00a [facility] Internal Medicine Noa Cotton, 35191 401.1 - [place] M.D. Office Visit 04/21/2011 1:00p DO Not Use Philomena Jay M.D., 37852 786.2 [facility] FACP Office Visit 08/19/2010 2:45p DO Not Use Marsha Kline, N.P. 26217 466.0 [facility] Office Visit 08/04/2010 11:30a DO Not Use Noa Cotton, 32248 401.1 [facility] M.D. 272.2 Office Visit 04/02/2010 10:15a DO Not Use Noa Cotton, 11818 682.0 [facility] M.D. 401.1 250.00 Office Visit 01/08/2010 9:00a DO Not Use [facility] [address] 401.1 V04.81 Office Visit 10/07/2009 11:30a DO Not Use Marsha Kline, N.P. 70098 466.0 [facility] Office Visit 09/29/2009 1:15p DO Not Use Noa Cotton, 86282 V70.0 [facility] M.D. 785.9 723.1 600.00 401.1 Office Visit 06/10/2009 1:30p DO Not Use Alla Cassidy, 75740 250.00 [facility] M.D. 401.1 272.0 V04.81 Office Visit 02/18/2009 2:30p DO Not Use Alla Cassidy, 23391 250.02 [facility] M.D. 753.10 V04.81 Office Visit 11/15/2008 3:00p DO Not Use Alla Cassidy, 39500 250.00 [facility] M.D. 401.1 Office Visit 09/06/2008 3:00p DO Not Use [facility] Marsha Kline, 08307 465.9 N.P. 462 Office Visit 08/19/2008 10:45a DO Not Use Alla Cassidy, 58967 V70.0 [facility] M.D. 250.00 272.0 719.45 401.1 Office Visit 04/29/2008 1:30p DO Not Use Alla Cassidy, 66410 250.02 [facility] M.D. 401.1 Office Visit 03/27/2008 10:45a DO Not Use Marsha Klnie, 55992 461.9 [facility] N.P. Office Visit 03/05/2008 3:00p DO Not Use Alla Cassidy, 70674 250.02 [facility] M.D. 401.1 Office Visit 12/12/2007 3:00p DO Not Use Alla Cassidy, 87576 715.94 [facility] M.D. 250.02 401.1 Office Visit 10/17/2007 9:45a DO Not Use Alla Cassidy, 17274 250.00 [facility] M.D. 401.1 Office Visit 10/12/2007 12:15p DO Not Use [facility] Philomena Jay, 34636 466.0 M.D., FACP Office Visit 08/16/2007 2:45p DO Not Use [facility] Alla Cassidy, 81279 V70.0 M.D. 250.00 401.1 356.9 V05.8 Office Visit 05/02/2007 2:15p DO Not Use Alla Cassidy, 52056 250.00 [facility] 401.1 Office Visit 03/29/2007 3:15p DO Not Use Alla Cassidy, 23166 250.02 [facility] 401.1 719.46 Office Visit 03/08/2007 2:30p DO Not Use Alla Cassidy, 36344 250.00 [facility] 401.1 Plan of Care Future Appointment(s):03/29/2018 3:45 pm - Jerman Russell M.D. at [facility]03/09/2018 10:00 am - Traveling ECHO 2 at [facility]04/27/2018 10:40 am - Noa Fernandez M.D. at [facility] Internal Medicine - [email or web address]/15/2018 - Debbie Escobedo MDJ18.9 Pneumonia, unspecified organismComments:Please go straight to the ER, I believe you have pneumonia and need further evalaution, treatment with antibiotics and possibly oxygen supplementation.
--- OUTSIDE RECORDS SUMMARY | 2018-02-24 21:29 | XMS REPORT ---
:1940 External Reference #:[id number] Author Organization [employer] Address [address] [place] [address] [place] [address] Phone [phone] Care Team Providers Name Role Phone Noa Fernandez MD Primary Care Physician Unavailable Payers Type Date Identification Numbers Payment Provider Subscriber Medicare Primary Effective: Policy Number: Medicare Marie Sweeney 2003 [id number] PayID: [id number] [address] [place] [address] Medigap Part B Policy Number: [id number] [facility] Marie Sweeney PayID: [id number] [address] [place] [address] Advance Directives Type Date Description Status Comment [...] Marital Status Lives With 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 needed Glucocom Blood 04/05 Active Kit W/Device 1unit for use Noa Glucose Monitoring s once daily Jim, System - meter M.D. per plan Dx E11.9, Z79.4 Pen [place] 07/08" 10/15 Active Misc 31G X 5 [...] 08/09 Active Tablets 25mg 90tab take one Ona s tablet by Cotton, mouth M.D. every [...] Active Tablets 50mg 90tab 1 by mouth Ona /0000 s every Cotton, morning M.D. Doxycycline 09/29 Hx Tablets 100mg 20tab 1 tab by Jorden Powell /2017 s janet Silva MD - twice a 10/05 day for days True Metrix Blood 10/15 Hx Strips 300un test 4 Z79.4 Noa Glucosetest Strips /2015 its times [place], - daily or M.D. 07/12 as needed dx E11.9, Z79.4. Test strips per plan Z00.00 Imodium A-D 01/18/2013 Hx Tablets 2mg 30tabs 1 tab orally 787.91 Noa - initially, [place], 08/10/2013 followed by 1 M.D. tab after each loose stool as needed at residence discression Flovent HFA 10/10/2012 Hx Aerosol 44mc 1units 2 puffs twice 786.2 Philomena - g/Ac daily for 10 Misty, 08/07/2013 t days M.D., FACP Benzonatate 10/10/2012 Hx Capsules 200m 30caps take 1 capsule 786.2 Philomena - g by mouth three Misty, 01/18/2013 times a day M.DGracie, FACP Pen [place] Mini 09/20/2012 Hx 360unit for use qid dx Noa 31GA. - s 250.00 [place], 10/16/2015 M.DGracie Aldactazide 05/30/2012 Hx Tablets 25-2 90tabs 1 tab PO qd Noa - 5mg [place], 08/09/2012 MVero Avapro 05/03/2012 Hx Tablets 300m 90tabs 1 by mouth once Noa - g daily [place], 12/26/2012 Breonna Hydrochlorothiazi 05/03/2012 Hx Tablets 25mg 90tabs 1 po qd Noa de - [place], 05/30/2012 Breonna Labetalol HCL 04/07/2012 Hx Tablets 100m 180tabs 2 po bid 401.1 Noa - g [place], 05/03/2012 M.D. Metoprolol 03/21/2012 Hx Tablets ER 50mg 30tabs take 1 PO qd 401.1 Noa Succinate ER - 24HR [place], 04/07/2012 M.D. Metoprolol 02/18/2012 Hx Tablets ER 25mg 30tabs 1 po qd 401.1 Noa Succinate ER - 24HR [place], 03/21/2012 M.D. Viagra 01/13/2012 Hx Tablets 50mg 18tabs take 1 or 2 Noa - tablets once [place], 11/11/2013 daily as needed M.D. Fluticasone 04/21/2011 Hx Suspension 50mc 1bottle 1 spray each 786.2 Philomena Propionate - g/Ac nostril in am Misty, 10/07/2011 t Breonna, FACP Azithromycin 04/21/2011 Hx Tablets 250m 6tabs two tabs day 786.2 Philomena - g one, one daily Misty, 10/05/2011 till gone Breonna, FACP Zithromax Z-Dani 08/19/2010 Hx Tablets 250m 1Pack two po Noa - g initially then [place], 08/29/2010 one po daily M.DGracie Lipitor 08/04/2010 Hx Tablets 20mg 90tabs 1 by mouth once Noa - daily [place], 08/17/2013 M.D. Cephalexin 04/02/2010 Hx Capsules 500m 28caps 1 tablet 4 682.0 Noa - g times daily for [place], 08/04/2010 7 days M.D. Losartan 12/16/2009 Hx Tablets 100- 90tabs take 1 tablet Noa Potassium/Hydroch - 25mg by mouth every [place], lorothiazide 05/03/2012 day M.D. Levemir 09/25/2009 Hx Solution 100U 23pens 52 units Noa - nit/ subcutaneously [place], 08/06/2010 ML at bedtime M.DGracie Diovan HCT 09/25/2009 Hx Tablets 320- 90tabs 1 tablet daily Noa - 25mg [place], 12/16/2009 M.D. Felodipine 09/25/2009 Hx Tablets ER 10mg 90tabs 1 tablet by Noa - 24HR mouth once [place], 04/12/2011 daily M.DGracie Lipitor 09/25/2009 Hx Tablets 10mg 90tabs 1 tablet every Noa - night [place], 08/04/2010 M.DGracie Asa 09/25/2009 Hx 81mg 30units 1 tablet daily Noa - [place], 09/28/2009 M.DGracie Econazole Nitrate 09/25/2009 Hx Cream 1% 45g apply to Noa - affected areas [place], 01/08/2010 bid x 2-3 wks M.DGracie Hydrocortisone 09/25/2009 Hx Cream 0.2% 30g topical twice Noa Valerate - daily to area [place], 01/08/2010 as needed M.DGracie Viagra 09/25/2009 Hx Tablets 50mg 18tabs Take 1 Or 2 Noa - Tablets Once [place], 04/12/2011 Daily as Needed M.D. Novolog Penfill [...] tablet Noa - mg by mouth twice [place], 08/07/2013 daily MVero Levitra Hx Tablets Unknown [...] CPT Code Status Date Vaccine Lot # [id number] Given 01/03/2018 Fluzone High Dose Q2039 Given 01/20/2016 Flu Vaccine NOS 69206 Given 01/27/2015 Fluzone High Dose Q2037 Given 10/09/2014 Fluvirin Im 3Yrs And Older 23059 Given 09/03/2014 Pneumococcal Conjugate Vaccine 13 Valent For [id number] Intramuscular Use 45881 Given 01/18/2013 Flu Vaccine Split Virus Preservative Free For [id number] Indiv 3Yr Older Q2038 Given 01/03/2012 Fluzone Vaccine [id number] 35189 Given 01/08/2010 Influenza Virus 3Yrs & Over 76395 Given 06/10/2009 Influenza Virus Vaccine, Pandemic Formulation 88233 Given 02/18/2009 Influenza Virus 3Yrs & Over 54836 Given 08/16/2007 Zoster (Zostavax) Vital Signs Date [...] High <31 Ua Routine 12/13/2014 Ua Specific [place] 1.005 Ua PH 5 Ua Color yellow [...] 5-9 Protein-Urine 1+ Negative RBC-Urine 0-2 0-2 Dgyplnxpqmnz-Sz-NNM NEGATIVE Negative Specific [place]-Ur 1.017 1.010-1.030 WBC-Urine 0-2 0-5 Comp Metabolic [...] [address]: Moraima Montague DO Acct: [id number] Unit: [id number] AGE: 78 Location: [place] [address] Re02/06/18 SEX: M Status: ADM IN SPEC: [id number] VENU: 02/06/[address]: Bob Bertrand MD REQ: [id number] RECD: 02/06/18 STATUS: RES MAICOHR DR: Noa Fernandez MD _ SOURCE: SPUTUM,EXP SPDESC: ORDERED: Sputum Cult/GS Procedure Result Reported Site Sputum Smear Final 02/07/18- 0801 ML 4+ Neutrophils 1+ Epithelial Cells 4+ Gram Positive Cocci 1+ Gram Negative Bacilli 2+ Gram Positive Diplococci 1+ Gram Negative Coccobacilli Sputum Culture PENDING * ML - Main Lab . END OF REPORT DEPARTMENT OF PATHOLOGY, [address] [place] [address] Tavo Patel M.D. Director [facility] # [id number] Hide Inspector And Sorter: [id number] 3 SEE RESULT BELOW Name: MARIE SWEENEY : [address]: Kenny Ortega MD Acct: [id number] Unit: [id number] AGE: 78 Location: ED Re02/05/18 SEX: M Status: REG ER SPEC: [id number] VENU: 02/05/[address]: Kenny Ortega MD REQ: [id number] RECD: 02/05/18 STATUS: LIZZETTE NINA DR: Noa Fernandez MD _ SOURCE: NASOPHARYN SPDESC: ORDERED: Flu A B Request Procedure Result Reported Site Rapid Influenza A B Request Final 02/05/18- 1641 ML Specimen received for Influenza A/B Molecular testing * ML - Main Lab . END OF REPORT DEPARTMENT OF PATHOLOGY, [address] [place] [address] Tavo Patel M.D. Director [facility] # [id number] 4 Hide Inspector And Sorter: [id number] 5 SEE RESULT BELOW Name: MARIE SWEENEY : [address]: Kenny Ortega MD Acct: [id number] Unit: [id number] AGE: 78 Location: ED Re02/05/18 SEX: M Status: REG ER SPEC: [id number] VENU: 02/05/[address]: Ayla JOHNSON REQ: [id number] RECD: 02/05/18 STATUS: LIZZETTE ANSARI DR: [facility] Noa Fernandez MD _ SOURCE: THROAT SPDESC: ORDERED: Strep A Request Procedure Result Reported Site Rapid Strep A Request Final 02/05/18- 1534 ML Specimen received for Rapid Strep A Molecular testing * ML - Main Lab . END OF REPORT DEPARTMENT OF PATHOLOGY, [address] [place] [address] Tavo Patel M.D. Director [facility] # [id number] 1843-A:Morphology: pearly telangiectatic papule;DDX: Basal Cell Carcinoma; Location: right frontal 7 SEE RESULT BELOW Name: PATELMARIE : [address]: Mami Lou MD Acct: [id number] Unit: [id number] AGE: 77 Location: [facility] Re01/05/18 SEX: M Status: REG REF SPEC: [id number] VENU: 01/05/18-1311 [facility] DR: Mami Lou MD REQ: [id number] RECD: 01/05/18-1715 STATUS: MARLEN ANSARI DR: Noa Fernandez MD _ ORDERED: LEVEL 4 COMMENTS: [id number] FINAL DIAGNOSIS Skin, right frontal scalp, biopsy: [...] 1013 END OF REPORT DEPARTMENT OF PATHOLOGY, [address] [place] [address] Tavo Patel M.D. Director [facility] # [id number] SEE RESULT BELOW Name: MARIE SWEENEY : [address]: Jorden Silva MD Acct: [id number] Unit: [id number] AGE: 77 Location: [facility] Re09/29/17 SEX: M Status: DEP SDC SPEC: [id number] VENU: 09/29/17-3 [facility] DR: Jorden Silva MD REQ: [id number] RECD: 09/29/17 STATUS: SOUT _ ORDERED: Decal, LEVEL 3 COMMENTS: [id number] FINAL DIAGNOSIS Bone, left index finger, middle [...] 1149 END OF REPORT DEPARTMENT OF PATHOLOGY, [address] [place] [address] Tavo Patel M.D. Director [facility] # [id number] 10 SEE RESULT BELOW Name: MARIE SWEENEY : [address]: Jorden Silva MD Acct: [id number] Unit: [id number] AGE: 77 Location: [facility] Re09/29/17 SEX: M Status: DEP SDC SPEC: [id number] VENU: 09/29/17 [facility] DR: Jorden Silva MD REQ: [id number] RECD: 09/29/17 STATUS: LIZZETTE ANSARI DR: Noa Fernandez MD _ SOURCE: FINGER SPDESC:INDEX LEFT ORDERED: Culture Stain Procedure Result Reported Site Wound/Misc Gram Stain Final 09/30/17- 35 ML 1+ Neutrophils No Organisms Seen Wound/Misc Culture Final 10/03/17- 07 ML No Growth Day 4 * ML - Main Lab . END OF REPORT DEPARTMENT OF PATHOLOGY, [address] [place] [address] Tavo Patel M.D. Director [facility] # [id number] 11 SEE RESULT BELOW Name: PATELMARIE : [address]: Jorden Sivla MD Acct: [id number] Unit: [id number] AGE: 77 Location: [facility] Re09/29/17 SEX: M Status: DEP SDC SPEC: [id number] VENU: 09/29/17-1640 [facility] DR: Jorden Silva MD REQ: [id number] RECD: 09/29/17 STATUS: LIZZETTE NINA DR: Noa Fernandez MD _ SOURCE: WOUND SPDESC:INDEX LEFT ORDERED: Anaerobic Cult Procedure Result Reported Site Anaerobic Culture Final 10/03/17- 806 ML No Growth Day 4 * ML - Main Lab . END OF REPORT DEPARTMENT OF PATHOLOGY, [address] [place] [address] Tavo Patel M.D. Director [facility] # [id number] 12 Acute inflammation: >10.00 13 Specific serologic [...] screening test (e.g., EIA). Test Performed by: [place] [address] 14 Acute inflammation: >10.00 15 Not diagnostic. Supplemental testing by immunoblot has been ordered by reflex. Test Performed by: [place] [address] 16 Desirable: <150 Borderline High: 150-199 High: [...] levels of PSA measured using the Mike Infor DXI Hybritech immunoassay should not be interpreted [...] protein on serum electrophoresis. Test Performed by: [address] [address] Histologist Technologist: Clifton Bruce II, M.D., Ph.D. 39 Desirable [...] 10 HOUR Copy Result to: VAN LOU ([id number]) 45 Normal Range 180 to 914 Indeterminate Range 145 to 180 Deficient Range <145 46 Copy Result to: VAN LOU ([id number]) 47 Because ethnic data is not always [...] levels of PSA measured using the Mike Infor DXI Hybritech immunoassay should not be interpreted [...] or kits cannot be used interchangeably. 56 Hide Inspector And Sorter: [id number] ALEX HARRELL 57 Hide Inspector And Sorter: [id number] GOLDIE PÉREZ 58 SEE RESULT BELOW Name: PATELMARIE : [address]: Damian Goldberg MD Acct: [id number] Unit: [id number] AGE: 74 Location: ENDO Re10/07/14 SEX: M Status: REG REF SPEC: [id number] VENU: 10/07/1451 [facility] DR: Damian Goldberg MD REQ: [id number] RECD: 10/07/147215 STATUS: MARLEN ANSARI DR: Noa Fernandez MD [...] performed at Main Lab DEPARTMENT OF PATHOLOGY, [address] [place] [address] Tavo Patel M.D. Director [facility] # [id number] 59 PT IS FASTING 60 Desirable <150 [...] levels of PSA measured using the Mike Infor DXI Hybritech immunoassay should not be interpreted [...] Chromatography-Tandem Mass Spectrometry (LC-MS/MS). Test Performed by: [address] [address] Histologist Technologist: Bon Rivers III, M.D. 68 Microalbuminuria in [...] mg/dL 72 FASTING 73 RUN DATE: 01/26/13 [facility] LAB LIVE PAGE 1 RUN TIME: [address] [place], [place] [address] Specimen Inquiry Name: MARIE SWEENEY DOB: [address]: Noa Fernandez MD Acct: [id number] Unit: [id number] AGE: 73 Location: [facility] Re01/24/13 SEX: M Status: REG REF SPEC: [id number] VENU: 01/24/13 [facility] DR: Noa Fernandez MD REQ: [id number] RECD: 01/24/13 STATUS: RES _ SOURCE: STOOL SPDESC: ORDERED: Hemoccult, Stool Culture, O P (Full), O P: Claudy/Crypt QUERIES: Medent Number [id number] Procedure Result Verified Site Stool Culture Final [...] performed at Main Lab DEPARTMENT OF PATHOLOGY, [facility] [employer] [place], [place] [address] Tavo Patel M.D. Director [facility] Permit #[id number] RUN DATE: 01/26/13 [facility] LAB LIVE PAGE 2 RUN TIME: [address] [facility] [employer] [place], [place] [address] Specimen Inquiry Patient: MARIE SWEENEY [id number] (Continued) Specimen: [id number] Collected: 01/24/13 Received: 01/24/13618 (Continued) Procedure Result Verified Site Shiga Toxin [...] performed at Main Lab DEPARTMENT OF PATHOLOGY, [facility] [employer] [place], [place] [address] Tavo Patel M.D. Director [facility] Permit #[id number] RUN DATE: 01/25/13 [facility] LAB LIVE PAGE 1 RUN TIME: [address] [facility] [employer] [place], [place] [address] Specimen Inquiry Name: MARIE SWEENEY : [address]: Noa Fernandez MD Acct: [id number] Unit: [id number] AGE: 73 Location: [facility] Re01/24/13 SEX: M Status: REG REF SPEC: [id number] VENU: 01/24/[address]: Noa Fernandez MD REQ: [id number] RECD: 01/24/13 STATUS: RES _ SOURCE: STOOL SPDESC: ORDERED: Hemoccult, Stool Culture, O P (Full), O P: Claudy/Crypt QUERIES: Medent Number [id number] Procedure Result Verified Site Stool Culture Preliminary [...] performed at Main Lab DEPARTMENT OF PATHOLOGY, [facility] [place] [address] Tavo Patel M.D. Director [facility] Permit #[id number] 75 RUN DATE: 01/24/13 [facility] LAB LIVE PAGE 1 RUN TIME: [address] [facility] [employer] [place], [place] [address] Specimen Inquiry Name: MARIE SWEENEY : [address]: Noa Fernandez MD Acct: [id number] Unit: [id number] AGE: 73 Location: [facility] Re01/24/13 SEX: M Status: REG REF SPEC: [id number] VENU: 01/24/13 [facility] DR: Noa Fernandez MD REQ: [id number] RECD: 01/24/13 STATUS: RES _ SOURCE: STOOL SPDESC: ORDERED: Hemoccult, Stool Culture, O P (Full), O P: Giar/Crypt QUERIES: Medent Number [id number] Procedure Result Verified Site Stool Culture PENDING Stool Specimen Description Final 01/24/13- 1545 ML Stool Color Brown Stool Form Nonformed Stool Consistency Soft Shiga Toxin 1 2 PENDING Stool Occult Blood Final 01/24/13- 1603 ML Stool Occult Blood Negative Ova Parasite Concen Full PENDING O P: Giardia/Cryptospor Screen PENDING END OF REPORT * ML=Testing performed at Main Lab DEPARTMENT OF PATHOLOGY, [address] [place] [address] Tavo Patel M.D. Director [facility] Permit #[id number] RUN DATE: 01/26/13 [facility] LAB LIVE PAGE 1 RUN TIME: [address] [place] [address] Specimen Inquiry Name: PATELMARIE : [address]: Noa Fernandez MD Acct: [id number] Unit: [id number] AGE: 73 Location: [facility] Re01/24/13 SEX: M Status: REG REF SPEC: [id number] VENU: 01/24/13 [facility] DR: Noa Fernandez MD REQ: [id number] RECD: 01/24/138369 STATUS: COMP _ SOURCE: STOOL SPDESC: ORDERED: Hemoccult, Stool Culture, O P (Full), O P: Giar/Crypt QUERIES: Medent Number [id number] Procedure Result Verified Site Stool Culture Final [...] performed at Main Lab DEPARTMENT OF PATHOLOGY, [facility] [employer] [place] [address] Tavo Patel M.D. Director [facility] Permit #[id number] RUN DATE: 01/26/13 [facility] LAB LIVE PAGE 2 RUN TIME: [address] [place] [address] Specimen Inquiry Patient: MARIE SWEENEY [id number] (Continued) Specimen: [id number] Collected: 01/24/13 Received: 01/24/13 (Continued) Procedure Result [...] is requested. Contact the Microbiology Department at [phone]. TEST LIMITATIONS: As with all diagnostic procedures, [...] performed at Main Lab DEPARTMENT OF PATHOLOGY, [address] [place] [address] Tavo Patel M.D. Director [facility] Permit #[id number] Serum levels of PSA measured using the Mike Infor DXI Hybritech immunoassay should not be interpreted [...] < 5% NOT SUPPORTIVE OF DIAGNOSIS OF [place] 5 - <10% INDETERMINATE; SUGGEST SERIAL STUDIES IF CLINICALLY INDICATED 10% OR > CONSISTENT WITH DIAGNOSIS OF [place] . 94 New Reference Range and Interpretation effective 01/26/2002 TnI (ng/ml) INTERPRETATION Less Than 0.06 ng/mL NOT SUPPORTIVE OF DIAGNOSIS OF [place] 0.06 - 0.50 ng/ml INDETERMINATE: SUGGEST SERIAL STUDIES IF CLINICALLY INDICATED. Greater than 0.5 ng/mL CONSISTENT WITH DIAGNOSIS OF [place] . 95 Anion gap measurement may be of limited value in the presence of any alkalosis, especially in a combined acid base disorder. . 96 A metabolite of Naproxen, O-desmethylnaproxen, has been shown to interfere with the [place] method for measuring total bilirubin. Samples from [...] been 1 shown to interfere with the [place] method for measuring total bilirubin. Samples from [...] change was based on recommendations from the [place] [employer]. 11 A metabolite of Naproxen, [...] 0.06 ng/mL NOT SUPPORTIVE OF DIAGNOSIS OF [place] 0.06 - 0.50 ng/ml INDETERMINATE: SUGGEST SERIAL STUDIES IF CLINICALLY INDICATED. Greater than 0.5 ng/mL CONSISTENT WITH DIAGNOSIS OF [place] . 12 Recommended INR for Patients 1 on Oral Anticoagulants Prophylaxis 2.0 - 3.0 Treatment of thrombosis 2.0 - 3.0 Prevention of embolism 2.0 - 3.0 Prevention of embolism from prosthetic heart valves 2.5 - 3.5 12 DIAGNOSIS,TREATMENT,AND THERAPY MUST BE BASED ON THE INR 2 VALUE ALONE. 12 * 3 SERUM LEVELS OF PSA MEASURED USING THE Zhitu ACCESS HYBRITECH IMMUNOASSAY SHOULD NOT BE INTERPRETED [...] IN SELECTIVE PATIENTS <6.0%. PLEASE REFER TO [place] [employer] DIABETIC CARE GUIDELINES FOR FURTHER [...] 04/12/2017 Diabetic Retinal Eye Exam Completed 02/23/2017 90643 EKG Tracing & Interpretation Completed 10/19/2016 Diabetic Retinal Eye Exam Completed 05/05/2016 48945 Inject Tendon Sheath Or Ligament Aponeurosis Eg Plantar Completed Fascia 04/08/2016 Diabetic Retinal Eye Exam Completed 11/10/2015 21153 Cardiac Cath,LT Hrtmincl Intraprocedural Ink LT Completed Ventricul Mammary 10/23/2015 94324 Stress Test Completed 10/23/2015 32203 Myocardial Perfusion Imaging Tomographic (Spect) Completed Multiple Studies 10/21/2015 80566 ECHO Transthoracic, Real-Time 2D With Doppler And Color Completed Flow 10/07/2015 Diabetic Retinal Eye Exam Completed 09/26/2015 73232 EKG Tracing & Interpretation Completed 09/25/2015 82924 Inject Tendon Sheath Or Ligament Aponeurosis Eg Plantar Completed Fascia 09/23/2015 49331 Carotid Doppler,Bilateral Completed 09/23/2015 72661 Carotid Doppler,Bilateral Completed 02/06/2015 25597 Inject Tendon Sheath Or Ligament Aponeurosis Eg Plantar Completed Fascia 10/11/2014 12916 EKG Tracing & Interpretation Completed 10/07/2014 Colonoscopy Completed 09/19/2014 Diabetic Retinal Eye Exam Completed 03/12/2014 Diabetic Retinal Eye Exam Completed 01/17/2014 30195 Rad Exam; Wrist, Comp, Min 3 Views Completed 01/17/2014 22281 Inject Tendon Sheath Or Ligament Aponeurosis Eg Plantar Completed Fascia 08/17/2013 91935 Carotid Doppler,Bilateral Completed 08/14/2013 03999 ECHO Transthoracic, Real-Time 2D With Doppler And Color Completed Flow 08/08/2013 70729 Myocardial Perfusion Imaging Tomographic (Spect) Completed Multiple Studies 08/08/2013 76467 Stress Test Completed 02/18/2012 Diabetic Retinal Eye Exam Completed 08/20/2011 Diabetic Retinal Eye Exam Completed 04/12/2011 36225 EKG Tracing & Interpretation Completed 09/29/2009 30390 EKG Tracing & Interpretation Completed 08/19/2008 28723 EKG Tracing & Interpretation Completed 03/08/2007 39592 EKG Tracing & Interpretation Completed 05/03/2006 94767 Pulse Doppler & Continuous Wave Completed 05/03/2006 04948 Echocardiogram Completed 05/03/2006 79084 Echocardiogram Completed 05/03/2006 91828 Color Doppler Completed 05/03/2006 68474 Color Doppler Completed Encounters Type Date Location Provider CPT E/M Dx Office Visit 11/07/2017 [facility] Internal Medicine Noa Fernandez 11367 Z00.00 1:20p - Alf Ravi I10 E11.21 E78.5 R19.5 Office Visit 10/07/2017 8:45a [facility] [place] [address] M79.645 C.M.A. Z48.02 Office Visit 09/28[facility]2017 [facility] 74133 M79.645 Infectious [facility] Breonna Washburn Office Visit 09/27/2017 2:40p [facility] Internal Medicine Ladarius Garcia, [address] M86.242 - Alf Ravi,FACP Office Visit 09/12/2017 3:00p [facility] Internal Medicine Ladarius Garcia, 33711 E11.9 - Andry Archer M.D.,FACP M01.x42 M10.9 Office Visit 05/02/2017 2:00p [facility] Internal Medicine Noa Fernandez 60391 I10 Alf Ravi Office Visit 02/23/2017 11:45a [facility] Jerman Russell 83087 I10 Yesenia Ravi I25.118 I35.0 Office Visit 12/15/2016 3:30p [facility] Internal Medicine Noa Fernandez 21894 R07.89 - Andry Archer M.D. Office Visit 11/04/2016 2:40p [facility] Internal Medicine Noa Fernandez 23996 Z00.00 - Alf Ravi I10 Office Visit 08/23/2016 2:00p [facility] Internal Medicine Noa Fernandez M.D. 22983 Daphne - Alf R01.1 R19.4 Office Visit 04/21/2016 1:45p [facility] Patricia Mata, 52081 G47.33 [facility] HITESH RN, RATE MANAGER- Office Visit 03/25/2016 10:40a [facility] Internal Medicine Noa Fernandez 74741 I10 - Alf Ravi Office Visit 03/04/2016 10:00a [facility] Internal Medicine Noa Fernandez 05382 I10 - Alf Ravi L40.8 Office Visit 01/30/2016 10:00a [facility] Jerman Russell 02465 I10 MVero I25.118 I35.0 Office Visit 11/17/2015 9:00a [facility] ELIZABETH Giron 21319IDW I10 I25.118 I35.0 Office Visit 10/24/2015 3:45p [facility] Jerman Russell 49408 I25.118 Yesenia Ravi I35.0 Office Visit 09/26/2015 9:45a [facility] Jerman Russell 74456 I10 MVero I25.118 R01.1 Office Visit 09/25/2015 3:20p [facility] Griselda Gore, 42483 M65.4 C.M.A. RPA-C Office Visit 03/03/2015 9:40a [facility] Internal Medicine Noa Fernandez 01195 I1Any - Alf Ravi R10.31 Office Visit 01/09/2015 1:00p [facility] [place] [address] 327.23 [facility] 278.00 Office Visit 12/13/2014 9:20a [facility] [place] [address] 789.03 - [place] Office Visit 10/11/2014 2:30p [facility] Umm Russell 759[address] 401.1 [facility] Breonna 414.01 Office Visit 10/09/2014 3:45p [facility] Gabriela [place] [address] 327.23 [facility] 278.00 Office Visit 10/09/2014 2:00p [facility] Internal Medicine - Pineda Akhtar, SYLVAIN 27027 V72.84 [place] 366.9 250.00 401.1 327.23 414.01 Office Visit 08/22/2014 4:00p [facility] Internal Medicine Noa Fernandez 02575 V70.0 - [place] M.DGracie 401.1 250.00 327.23 Office Visit 08/07/2014 2:30p [facility] Internal Medicine Seun Patel, SYLVAIN [address] 843.8 - [address] Office Visit 02/27/2014 10:40a [facility] Internal Medicine Noa Fernandez 37518 401.1 - [place] M.DGracie Office Visit 01/17/2014 1:15p [facility] Belkis Thorpe, 81277 727.04 Of Fiona Ravi Office Visit 09/06/2013 9:30a [facility] Of Jerman Russell 25276 414.01 Yesenia Ravi 786.05 Office Visit 08/17/2013 3:40p [facility] Internal Medicine Noa Fernandez 70344 V70.0 - [place] M.D. 724.3 414.01 250.02 Office Visit 08/10/2013 1:30p [facility] Of Nia Bishop M.D. 29189 401.1 [facility] 786.51 414.01 785.2 785.9 Office Visit 01/18/2013 8:40a [facility] Internal Medicine Noa Fernandez, 71917 401.1 - [place]avi 787.91 V04.81 Office Visit 10/10/2012 11:00a [facility] Internal Medicine Philomena Jay M.D., 39223 786.2 - [place] FACP Office Visit 08/11/2012 1:00p [facility] Internal Medicine Noa Fernandez 58035 401.1 - [place] Breonna 784.0 Office Visit 05/02/2012 3:00p [facility] Internal Medicine Noa Fernandez 20695 401.1 - [place] DashaDGracie 784.0 Office Visit 04/07/2012 9:40a [facility] Internal Medicine Noa Fernandez 22997 V70.0 - [place] M.D. 401.1 785.9 Office Visit 03/21/2012 9:00a [facility] Internal Medicine Noa Cotton, 82519 401.1 - [place] M.D. Office Visit 02/28/2012 2:20p [facility] Internal Medicine Marsha Kline, N.P. 26107 380.4 - [place] Office Visit 02/18/2012 1:00p [facility] Internal Medicine Noa Cotton, 81163 401.1 - [place] M.D. 724.5 Office Visit 01/03/2012 2:40p [facility] Internal Medicine Noa Cotton, 02432 V04.81 - [place] M.D. 401.1 238.2 Office Visit 11/18/2011 2:40p [facility] Internal Medicine Nao Cotton, 08538 401.1 - [place] M.D. Office Visit 10/07/2011 11:00a [facility] Internal Medicine Noa Cotton, 49535 401.1 - [place] M.D. Office Visit 04/21/2011 1:00p DO Not Use Philomena Jay M.D., 07066 786.2 [employer] FACP Office Visit 08/19/2010 2:45p DO Not Use Marsha Kline, N.P. 65993 466.0 [employer] Office Visit 08/04/2010 11:30a DO Not Use Noa Cotton, 06785 401.1 [employer] M.D. 272.2 Office Visit 04/02/2010 10:15a DO Not Use Noa Cotton, 66511 682.0 [employer] M.D. 401.1 250.00 Office Visit 01/08/2010 9:00a DO Not Use [employer] [address] 401.1 V04.81 Office Visit 10/07/2009 11:30a DO Not Use Marsha Kline, N.P. 51582 466.0 [employer] Office Visit 09/29/2009 1:15p DO Not Use Noa Cotton, 91687 V70.0 [employer] M.D. 785.9 723.1 600.00 401.1 Office Visit 06/10/2009 1:30p DO Not Use Alla Cassidy, 57884 250.00 [employer] M.D. 401.1 272.0 V04.81 Office Visit 02/18/2009 2:30p DO Not Use Alla Cassidy, 44765 250.02 [employer] M.D. 753.10 V04.81 Office Visit 11/15/2008 3:00p DO Not Use Alla Cassidy, 05761 250.00 [employer] M.D. 401.1 Office Visit 09/06/2008 3:00p DO Not Use [employer] Marsha Kline, 00814 465.9 N.P. 462 Office Visit 08/19/2008 10:45a DO Not Use Alla Cassidy, 40227 V70.0 [employer] M.D. 250.00 272.0 719.45 401.1 Office Visit 04/29/2008 1:30p DO Not Use Alla Cassidy, 78930 250.02 [employer] M.D. 401.1 Office Visit 03/27/2008 10:45a DO Not Use Marsha Kline, 71630 461.9 [employer] N.P. Office Visit 03/05/2008 3:00p DO Not Use Alla Cassidy, 55704 250.02 [employer] M.D. 401.1 Office Visit 12/12/2007 3:00p DO Not Use Alla Cassidy, 80492 715.94 [employer] M.D. 250.02 401.1 Office Visit 10/17/2007 9:45a DO Not Use Alla Cassidy, 69397 250.00 [employer] M.D. 401.1 Office Visit 10/12/2007 12:15p DO Not Use [employer] Philomena Jay, 64909 466.0 M.D., FACP Office Visit 08/16/2007 2:45p DO Not Use [employer] Alla Cassidy, 74233 V70.0 M.D. 250.00 401.1 356.9 V05.8 Office Visit 05/02/2007 2:15p DO Not Use Alla Cassidy, 02578 250.00 [facility] 401.1 Office Visit 03/29/2007 3:15p DO Not Use Alla Cassidy, 82315 250.02 [facility] 401.1 719.46 Office Visit 03/08/2007 2:30p DO Not Use Alla Cassidy, 01070 250.00 [facility] 401.1 Plan of Care Future Appointment(s):03/29/2018 3:45 pm - Jerman [facility] M.D. at [facility]03/09/2018 10:00 am - Traveling ECHO 2 at [facility]04/27/2018 10:40 am - Noa Fernandez M.D. at [facility] Internal Medicine - Snmquyakh40/15/2018 - Debbie Escobedo MDJ18.9 Pneumonia, unspecified organismComments:Please go straight to the ER, I believe you have pneumonia and need further evalaution, treatment with antibiotics and possibly oxygen supplementation.
[2018-02-24] MEDS ORDERED: hydrALAZINE IV* 20 MG/ML VIAL IV SLOW PU ONE (21:36)
[2018-02-24 21:50] LABS: ABS Basophils 0.1 10^3/ul (0-0.2); ABS Eosinophils 0.1 10^3/ul (0-0.6); ABS Lymphocytes 1.1 10^3/ul (1.0-4.8); ABS Monocytes 0.8 10^3/ul (0-0.8); ABS Neutrophils 4.5 10^3/ul (1.5-7.7); ABS Nucleated RBC 0 10^3/ul; Eosinophil % 1.3 % (0-6); Hematocrit 33 % (42-52); Hemoglobin 11.2 g/dl (14.0-18.0); Lymphocyte % 17.1 % (25-47); Mean Corpuscular HGB Conc 35 g/dl (31-36); Mean Corpuscular Hemoglobin 32 pg (27-31); Mean Corpuscular Volume 93 fL (80-94); Mean Platelet Volume 8.8 fL (7.4-10.4); Nucleated Red Blood Cells % 0; Platelet Count 177 10^3/ul (150-450); Red Cell Distribution Width 14 % (10.5-15); White Blood Count 6.6 10^3/ul (3.5-10.8)
[2018-02-24 22:01] LABS: INR 0.91 (0.77-1.02)
[2018-02-24 22:08] LABS: EGFR Non-African American 74.7 (>60)
[2018-02-24] MEDS ORDERED: Ondansetron INJ* 2 MG/ML VIAL IV PRN (22:55)
[2018-02-24] MEDS ORDERED: Magnesium Sulfate 2 GM IV* 2 GM/50 ML BAG IVPB ONE (22:55)
[2018-02-24] MEDS ORDERED: Dextrose 50% Syringe 50 ML* 25 GM/50 ML SYRINGE IV PUSH PRN (22:55)
[2018-02-24] MEDS ORDERED: Potassium Chlor TAB* 20 MEQ TAB.ER PO ONE (22:55)
[2018-02-24] MEDS ORDERED: Acetaminophen TAB* 325 MG PO PRN (22:55)
[2018-02-25] MEDS: Metoprolol Tartrate TAB* 25 MG PO SCH ×3 (00:10→22:05)
[2018-02-25] MEDS ORDERED: Nitroglycerin 2% OINT* 1 GM PAK ONE (00:26)
[2018-02-25] MEDS: Heparin VIAL(*) 5000 UNITS/ML VIAL (FIVE THOUSAND) IV PRN ×2 (00:35→16:19)
[2018-02-25] MEDS: Doxazosin TAB* 2 MG PO SCH ×2 (00:36→22:04)
[2018-02-25] MEDS ORDERED: Insulin GLARGINE(*) 1 UNITS UNIT SUBCUT SCH ×2 (01:00→20:00)
[2018-02-25] MEDS: Nitroglycerin 2% OINT* 1 GM PAK TOPICAL SCH ×3 (02:30→13:12)
--- NOTE | 2018-02-25 03:29 | HP ---
CC: Dr. Tristen Patel; Dr. Jerman Russell; Dr. Fernandez * HISTORY AND PHYSICAL: DATE OF ADMISSION: 02/24/18 PRIMARY CARE PROVIDER: Dr. Noa Fernandez. ATTENDING PHYSICIAN WHILE IN THE HOSPITAL: Daysi Greer MD * (report dictated by Eddy Macdonald NP). CONSULTING KEELER POLYGRAPH OPERATOR: Dr. Tristen Patel. CHIEF COMPLAINT: Chest pain. HISTORY OF PRESENT ILLNESS: Mr. Dillard is a 78-year-old male patient. He has a history of hypertension, diabetes, LISSETH, carries a history of uckwtxpb-lp-naqldm aortic stenosis, also has history of moderate CAD, gout, and history of skin cancer. He was just here couple of weeks ago with pneumonia. While here, he was having episodes of nonsustained v-tach. He was evaluated by Cardiology. Repeat echo was obtained. He was started on Lopressor. He had no more episodes. His troponins have trended down. He was discharged. He says for the first few days, he really was not really feeling well. He was tired and fatigued. He was taking his time to get back to his normal activities. Today, he finally felt very well. He went to the local dum here. He was unloading some brush. He went home, he laid down, he fell asleep. He got up around 4 o' clock and he was noticing he was having a significant amount of chest pressure having this on the left side and he felt very fatigued. He said the pain symptoms just got progressively worse over the next 3 hours. He told his who was concerned and the called 911 and he came into the hospital. He does state that the chest pain is getting better now. It is almost gone. He denies having any associated shortness of breath and denied having any associated nausea or diaphoresis. He came in to the ED because of his chest discomfort. We were asked to evaluate for admission. PAST MEDICAL HISTORY: Significant for: 1. Hypertension. 2. Diabetes. 3. LISSETH. 4. Gout. 5. CAD. 6. Hjuumabw-hw-arfkox AF, last mean gradient was 38 mmHg and he has a history of skin cancer. PAST SURGICAL HISTORY: 1. He has had a heart catheterization. 2. Rotator cuff repair x4. 3. Hemorrhoidectomy. HOME MEDICATIONS: According to the previous discharge and these have not changed and he has been taking them and include: 1. Colchicine 0.6 mg p.o. daily as needed. 2. Lipitor 20 mg p.o. daily. 3. Aspirin 81 mg daily. 4. Eplerenone 50 mg p.o. q.a.m. 5. Cardura 2 mg p.o. at bedtime. 6. B12 2000 mcg p.o. daily. 7. Vitamin D 1000 mcg p.o. daily. 8. Lopressor 25 mg p.o. b.i.d. 9. Avapro 300 mg p.o. daily. 10. Levemir 66 units subcu daily. 11. Insulin aspart 14 units subcu t.i.d. before meals. 12. Hydrochlorothiazide 25 mg p.o. every day. 13. Felodipine 10 mg p.o. daily. 14. Tramadol 50 to 100 mg every 6 hours as needed. 15. Cialis 5 to 10 mg daily as needed. 16. Fish oil 1000 mcg p.o. daily. 17. Multivitamin 1 tablet p.o. daily. ALLERGIES TO MEDICATION: Include CODEINE and METFORMIN. FAMILY HISTORY: His mother lived to the age of 88. She of CHF. Father lived at age of 93. He had a history of diabetes. He says he of old age. SOCIAL HISTORY: He does not drink. He occasionally does drink alcohol. Surrogate decision maker is his . REVIEW OF SYSTEMS: There is no documented fever. He denied having any significant weight change. There was no double vision. He denies having any ear discharge. He denied having any more cough, fever. No more shortness of breath, but he did admit to having again that chest pressure. He denied any nausea, no vomiting, no abdominal pain, no dysuria, no frequency, no seizure. He denied having any loss of conscious. Review of 14 systems completed, all others negative. PHYSICAL EXAMINATION GENERAL: At this time, Mr. Dillard is a 78-year-old male patient. He is sitting on the ED stretcher. He does not appear to be in any acute distress. He appears to be well nourished and well developed. VITAL SIGNS: Blood pressure 164/95 with a pulse of 55, respirations 20, O2 sat 98%, temperature 98.7. HEENT: Head: Atraumatic and normocephalic. Eyes: EOMs are intact. Sclerae are anicteric and not pale. Throat: Oral mucosa appears to be moist. No oropharyngeal erythema. NECK: Supple. LUNGS: Clear to auscultation bilaterally. No wheezes, rales, or rhonchi. HEART: Sounds S1 and S2. He had a regular rate and rhythm. He had no rubs or gallops, but he had grade 2 to 3 aortic systolic murmur. ABDOMEN: Soft, flat, nontender. Bowel sounds were present. EXTREMITIES: Pulses were 2+ throughout. He had no peripheral edema. NEUROLOGIC: He is awake, he is alert, he is oriented x3. Tongue midline. Car Dealer were equal. He had no gross focal deficits. SKIN: Grossly intact. DIAGNOSTIC STUDIES/LAB DATA: Labs today WBC of 6.6, RBC of 3.50, hemoglobin of 11.2, hematocrit of 33, and platelet count of 177. INR 0.91, PTT of 30.2. D -dimer 293. His sodium was 132, potassium of 3.6, chloride 100, bicarb 23, BUN was 19, creatinine of 0.97, glucose of 107, lactic 1.9, calcium 8.6, total mag 1.5, total bili 1, AST 17, ALT 19, alk phos 72, CK-MB 2.3, troponin 0.03. BNP 118. Albumin of 3.3. He did have a chest x-ray obtained today. Under my review I did not appreciate any acute infiltrates or pleural effusions or pulmonary edema noted. He had a previous chest x-ray, which did show right upper lobe infiltrate, may have some residual but that is indefinitely improved from his previous chest x-ray. An EKG obtained today showing sinus bradycardia, rate of 56, no ST elevation or T-wave inversions. He had subtle ST elevations in V2 and V1. When you look to his previous EKG, there does appear to be similar, but he did have multiple PVCs. He had an echo with his last hospitalization. EF was 55% to 60% and the mean gradient of aortic valve was 38. Old medical records were reviewed. ASSESSMENT AND PLAN: Mr. Dillard is a 78-year-old male patient coming into the hospital today with complaints of chest pain. We were asked to evaluate for admission. He will be admitted under inpatient status for: 1. Chest pain. I am concerned that this could be acute coronary syndrome. I did touch base with Dr. Patel. My plan is to try to get his blood pressure down preferably to 130 to 140 systolic range. I do not want it to go too low given the significant aortic stenosis. I am going to order nitro paste. His story is convincing, so I am going to go ahead and order his heparin drip. Dr. Patel was in agreement. I do note mildly elevated D-dimer but it is only 293 and if we need age adjusted, it is normal and he is not hypoxic. I think pulmonary embolism is less likely, so I do not want to gianna a CTA in case we need to do heart catheterization. I will cycle his troponin. I will get an EKG in the morning. I have consulted Cardiology. We will continue his beta- cam. We will give him his dose tonight that he is supposed to take. He is also going to be taking Cardura tonight and will continue to monitor him closely. His chest pain has almost gone, so I will get him on the nitrates and see if that can help him and will continue to follow. If the troponins elevate , I will transfer to the ICU for something like nitro drip particularly if he is having chest pain, but at this point he appears to be stable. 2. Hypertension, not well controlled. Again, I am adding nitrates. We will continue his medicines as prescribed. 3. Diabetes. Continue his lispro sliding scale and Levemir. 4. Obstructive sleep apnea. I ordered CPAP. 5. Gout, not an active issue currently. 6. Coronary artery disease. He is on aspirin, statin, beta-cam therapy. We will continue. 7. Zwhvctrd-aa-krlpdf aortic stenosis. He is following with Dr. Russell. We are going to try not to lower the blood pressure too much, but I wanted a little bit lower than the 160 range and we will continue to follow. 8. History of ventricular tachycardia. I do note that his potassium and mag are low. I have ordered supplementation for this. We will follow and he will be on tele. 9. DVT prophylaxis: He is on heparin drip. 10. Code status: Full code. 11. Fluids, electrolytes, and nutrition: He can have a heart-healthy diet. TIME SPENT: Time spent on the admission is 60 minutes, greater than half the time was spent [id number] with the patient obtaining my history and physical, other half the time was spent going over the plan of care with the patient and implementing the plan of care. I did discuss the plan of care with my attending , Dr. Greer; she is in agreement. EDDY MACDONALD, LAWN SERVICE MANAGER [id number]/[facility] #: [id number] FAVIOLA
[2018-02-25 07:16] LABS: ABS Basophils 0 10^3/ul (0-0.2); ABS Eosinophils 0.1 10^3/ul (0-0.6); ABS Lymphocytes 0.9 10^3/ul (1.0-4.8); ABS Monocytes 0.6 10^3/ul (0-0.8); ABS Neutrophils 2.2 10^3/ul (1.5-7.7); ABS Nucleated RBC 0 10^3/ul; Eosinophil % 3.2 % (0-6); Hematocrit 33 % (42-52); Hemoglobin 11.3 g/dl (14.0-18.0); Lymphocyte % 22.2 % (25-47); Mean Corpuscular HGB Conc 34 g/dl (31-36); Mean Corpuscular Hemoglobin 32 pg (27-31); Mean Corpuscular Volume 94 fL (80-94); Mean Platelet Volume 8.7 fL (7.4-10.4); Nucleated Red Blood Cells % 0.1; Platelet Count 149 10^3/ul (150-450); Red Blood Count 3.56 10^6/ul (4.00-5.40); Red Cell Distribution Width 14 % (10.5-15); White Blood Count 3.9 10^3/ul (3.5-10.8)
[2018-02-25 07:53] LABS: EGFR Non-African American 84.6 (>60)
[2018-02-25] MEDS: Aspirin 81 mg CHEW TAB* 81 MG TAB.CHEW PO SCH (08:40)
[2018-02-25] MEDS: Atorvastatin* 20 MG TAB PO SCH (08:42)
[2018-02-25] MEDS: amLODIPine TAB* 5 MG PO SCH ×4 (08:42→22:02)
[2018-02-25] MEDS: Multivitamins/Minerals TAB PO SCH (08:42)
[2018-02-25] MEDS: Hydrochlorothiazide TAB* 25 MG PO SCH (08:43)
[2018-02-25] MEDS: Insulin LISPRO* 1 UNITS UNIT SUBCUT SCH ×6 (08:44→17:33)
[2018-02-25] MEDS ORDERED: Epleronone (NF) 25 MG TAB PO SCH (09:00)
[2018-02-25] MEDS ORDERED: Losartan TAB* 25 MG PO SCH (09:00)
[2018-02-25] MEDS ORDERED: Insulin GLARGINE(*) 1 UNITS UNIT SUBCUT ONE (09:03)
--- NOTE | 2018-02-25 09:10 | PN ---
Subjective Date of Service: 02/25/18 Interval History: chest pressure resolved overnight attests to cramping "terra horse" in left calf that lasted 3-4 days (10-14 days ago). his brush clearing was pretty strenuous at times. He saw Dr. Russell on 02/22 and he planned on nuclear stress test the first week of March. Objective Active Medications: Acetaminophen (Tylenol Tab*) 650 mg PO Q4H PRN PRN Reason: FEVER/PAIN Amlodipine Besylate (Norvasc Tab*) 10 mg PO QAM [facility]; Protocol Aspirin (Aspirin 81 Mg Chew Tab*) 81 mg PO QAM [facility] Last Admin: 02/25/18 08:40 Dose: 81 mg Atorvastatin Calcium (Lipitor*) 20 mg PO DAILY [facility] Last Admin: 02/25/18 08:42 Dose: 20 mg Dextrose (D50w Syringe 50 Ml*) 12.5 gm IV PUSH .FOR FS < 60 - SS PRN PRN Reason: FS < 60 Doxazosin Mesylate (Cardura Tab*) 2 mg PO BEDTIME [facility] Last Admin: 02/25/18 00:36 Dose: 2 mg Eplerenone (Inspra (Nf)) 50 mg PO QAM [facility]; Protocol Fish Oil (Fish Oil (Nf)) 1,000 mg PO DAILY [facility]; Protocol Heparin Sodium (Porcine) (Heparin Vial(*)) 0 units IV .FOR BOLUSES PRN PRN Reason: HEPARIN DRIP BOLUSES Last Admin: 02/25/18 00:35 Dose: 4,000 units Hydrochlorothiazide (Hydrodiuril Tab*) 25 mg PO QAM [facility] Last Admin: 02/25/18 08:43 Dose: 25 mg Heparin Sodium/Dextrose (Heparin Drip 25,000 Units(*)) 25,000 units in 500 mls @ 0 mls/hr IV PER RATE [facility]; Protocol Insulin Glargine (Lantus(*)) 10 units SUBCUT Q24H [facility] Last Admin: 02/25/18 02:28 Dose: 10 units Insulin Glargine (Lantus(*)) 15 units SUBCUT ONCE ONE Stop: 02/25/18 09:04 Insulin Human Lispro (Humalog*) 0 units SUBCUT AC [facility]; Protocol Last Admin: 02/25/18 08:44 Dose: 3 units Losartan Potassium (Cozaar Tab*) 100 mg PO DAILY [facility] Last Admin: 02/25/18 08:40 Dose: 100 mg Metoprolol Tartrate (Lopressor Tab*) 25 mg PO BID [facility] Last Admin: 02/25/18 08:52 Dose: 25 mg Multivitamins/Minerals (Theragran/Minerals Tab*) 1 tab PO DAILY [facility] Last Admin: 02/25/18 08:42 Dose: 1 tab Nitroglycerin (Nitroglycerin 2% Oint*) 1 inch TOPICAL 0100,0700 [facility]; Protocol Last Admin: 02/25/18 06:29 Dose: 1 inch Ondansetron HCl (Zofran Inj*) 4 mg IV Q6H PRN PRN Reason: NAUSEA Pharmacy Profile Note (Nitro Patch/Oint Remove*) 1 note TOPICAL 1300 [facility] Vital Signs - 8 hr 02/25/18 02/25/18 02/25/18 03:06 04:39 07:51 Temperature 97.4 F Pulse Rate 50 Respiratory 20 16 Rate Blood Pressure 145/52 (mmHg) O2 Sat by Pulse 94 96 Oximetry 02/25/18 08:00 Temperature Pulse Rate Respiratory 16 Rate Blood Pressure (mmHg) O2 Sat by Pulse Oximetry Oxygen Devices in Use Now: None, CPAP Appearance: NAD Eyes: No Scleral Icterus, PERRLA Ears/Nose/Mouth/Throat: NL Teeth, Lips, Gums Neck: NL Appearance and Movements; NL JVP Respiratory: Symmetrical Chest Expansion and Respiratory Effort, Clear to Auscultation Cardiovascular: RRR, - - 3/6 holosystolic murmur throughout precordium Abdominal: NL Sounds; No Tenderness; No Distention, No Hepatosplenomegaly Extremities: - - 1+ pitting edema LE b/l Skin: No Rash or Ulcers, - - mohs scar on rigtht forehead, bandaid on back Neurological: Alert and Oriented x 3, NL Sensation Nutrition: Taking PO's Result Diagrams: 02/25/18 07:08 02/25/18 07:08 Additional Lab and Data: Laboratory Results - last 24 hr 02/24/18 02/24/18 02/24/18 21:30 21:30 21:30 WBC 6.6 RBC 3.50 L Hgb 11.2 L Hct 33 L MCV 93 MCH 32 H MCHC 35 RDW 14 Plt Count 177 MPV 8.8 Neut % (Auto) 67.6 Lymph % (Auto) 17.1 L Norman % (Auto) 12.8 H Eos % (Auto) 1.3 Baso % (Auto) 1.2 Absolute Neuts (auto) 4.5 Absolute Lymphs (auto) 1.1 Absolute Monos (auto) 0.8 Absolute Eos (auto) 0.1 Absolute Basos (auto) 0.1 Absolute Nucleated RBC 0 Nucleated RBC % 0 INR (Anticoag Therapy) 0.91 APTT 30.2 D-Dimer, Quantitative 293 H Sodium 132 L Potassium 3.6 Chloride 100 L Carbon Dioxide 23 Anion Gap 9 BUN 19 Creatinine 0.97 Est GFR ( Amer) 90.3 Est GFR (Non-Af Amer) 74.7 BUN/Creatinine Ratio 19.6 Glucose 107 H POC Glucose (mg/dL) Hemoglobin A1c Lactic Acid Calcium 8.6 Magnesium 1.5 L Total Bilirubin 1.00 AST 17 ALT 19 Alkaline Phosphatase 72 CK-MB (CK-2) 2.3 Troponin I 0.03 B-Natriuretic Peptide Total Protein 5.7 L Albumin 3.3 Globulin 2.4 Albumin/Globulin Ratio 1.4 Triglycerides Cholesterol LDL Cholesterol HDL Cholesterol 02/24/18 02/24/18 02/25/18 21:30 21:30 00:01 WBC RBC Hgb Hct MCV MCH MCHC RDW Plt Count MPV Neut % (Auto) Lymph % (Auto) Norman % (Auto) Eos % (Auto) Baso % (Auto) Absolute Neuts (auto) Absolute Lymphs (auto) Absolute Monos (auto) Absolute Eos (auto) Absolute Basos (auto) Absolute Nucleated RBC Nucleated RBC % INR (Anticoag Therapy) APTT D-Dimer, Quantitative Sodium Potassium Chloride Carbon Dioxide Anion Gap BUN Creatinine Est GFR ( Amer) Est GFR (Non-Af Amer) BUN/Creatinine Ratio Glucose POC Glucose (mg/dL) Hemoglobin A1c 7.4 H Lactic Acid 1.9 Calcium Magnesium Total Bilirubin AST ALT Alkaline Phosphatase CK-MB (CK-2) Troponin I B-Natriuretic Peptide 118 H Total Protein Albumin Globulin Albumin/Globulin Ratio Triglycerides Cholesterol LDL Cholesterol HDL Cholesterol 02/25/18 02/25/18 02/25/18 00:02 00:02 03:42 WBC RBC Hgb Hct MCV MCH MCHC RDW Plt Count MPV Neut % (Auto) Lymph % (Auto) Norman % (Auto) Eos % (Auto) Baso % (Auto) Absolute Neuts (auto) Absolute Lymphs (auto) Absolute Monos (auto) Absolute Eos (auto) Absolute Basos (auto) Absolute Nucleated RBC Nucleated RBC % INR (Anticoag Therapy) APTT 31.3 D-Dimer, Quantitative Sodium Potassium Chloride Carbon Dioxide Anion Gap BUN Creatinine Est GFR ( Amer) Est GFR (Non-Af Amer) BUN/Creatinine Ratio Glucose POC Glucose (mg/dL) Hemoglobin A1c Lactic Acid Calcium Magnesium Total Bilirubin AST ALT Alkaline Phosphatase CK-MB (CK-2) Troponin I 0.03 0.03 B-Natriuretic Peptide Total Protein Albumin Globulin Albumin/Globulin Ratio Triglycerides Cholesterol LDL Cholesterol HDL Cholesterol 02/25/18 02/25/18 02/25/18 07:08 07:08 07:08 WBC 3.9 RBC 3.56 L Hgb 11.3 L Hct 33 L MCV 94 MCH 32 H MCHC 34 RDW 14 Plt Count 149 L MPV 8.7 Neut % (Auto) 58.2 Lymph % (Auto) 22.2 L Norman % (Auto) 15.3 H Eos % (Auto) 3.2 Baso % (Auto) 1.1 Absolute Neuts (auto) 2.2 Absolute Lymphs (auto) 0.9 L Absolute Monos (auto) 0.6 Absolute Eos (auto) 0.1 Absolute Basos (auto) 0 Absolute Nucleated RBC 0 Nucleated RBC % 0.1 INR (Anticoag Therapy) APTT 51.3 H D-Dimer, Quantitative Sodium 131 L Potassium 4.8 Chloride 101 Carbon Dioxide 26 Anion Gap 4 BUN 17 Creatinine 0.87 Est GFR ( Amer) 102.4 Est GFR (Non-Af Amer) 84.6 BUN/Creatinine Ratio 19.5 Glucose 193 H POC Glucose (mg/dL) Hemoglobin A1c Lactic Acid Calcium 8.5 L Magnesium Total Bilirubin AST ALT Alkaline Phosphatase CK-MB (CK-2) Troponin I 0.03 B-Natriuretic Peptide Total Protein Albumin Globulin Albumin/Globulin Ratio Triglycerides 69 Cholesterol 119 LDL Cholesterol 50 HDL Cholesterol 55.3 02/25/18 07:48 WBC RBC Hgb Hct MCV MCH MCHC RDW Plt Count MPV Neut % (Auto) Lymph % (Auto) Norman % (Auto) Eos % (Auto) Baso % (Auto) Absolute Neuts (auto) Absolute Lymphs (auto) Absolute Monos (auto) Absolute Eos (auto) Absolute Basos (auto) Absolute Nucleated RBC Nucleated RBC % INR (Anticoag Therapy) APTT D-Dimer, Quantitative Sodium Potassium Chloride Carbon Dioxide Anion Gap BUN Creatinine Est GFR ( Amer) Est GFR (Non-Af Amer) BUN/Creatinine Ratio Glucose POC Glucose (mg/dL) 198 H Hemoglobin A1c Lactic Acid Calcium Magnesium Total Bilirubin AST ALT Alkaline Phosphatase CK-MB (CK-2) Troponin I B-Natriuretic Peptide Total Protein Albumin Globulin Albumin/Globulin Ratio Triglycerides Cholesterol LDL Cholesterol HDL Cholesterol Assess/Plan/Problems-Billing Assessment: 78 yo male PMH moderate-severe (TESHA 1.1), diastolic CHF, CAD ([facility] October 2015 with pLAD 60%, RCA 20%, ostial PDDA 50%), 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 #CAD, ACS rule out - story concerning and will likely need cath vs nuclear stress - troponins negative - f/u [facility] recs from Dr. Patel - continue statin, BB, aspirin - on heparin gtt and nitro paste #mod-severe - avoid excessive preload reduction #HTN and diastolic CHF - continue losartan 100mg - hold amlodipine 10mg given shawanda low 50s, continue metoprolol 25 bid - continue HCTZ 25mg - continue eplerone 50 (or formulary sub) - continue cardura 2 #IDDM - home is on levemir 66-70 U qhs - got 10U at 3am, will give another 15U now. fasting was 190s. SSI - A1C 7.5% few weeks ago FEN: cardiac, carbohydrate consistent Dispo: medicine inpatient CODE: FULL Attending: Humberto Moran
--- NOTE | 2018-02-25 09:43 | RAD ---
INDICATION: Chest pain COMPARISON: Most recent comparison chest x-rays dated February 08, 2018 TECHNIQUE: Single AP portable view of the chest was obtained. FINDINGS: Image quality is compromised due to the relative inferiority of a portable chest x-ray. The heart and mediastinum exhibit normal size and contour. The pulmonary vasculature is mildly engorged and indistinct similar in appearance to the previous chest x-ray. Otherwise the lungs are grossly clear. There is no evidence of a large pleural effusion. Visualized bones are normal for the patient's age. IMPRESSION: Chest x-ray findings are consistent with mild vascular congestion. R1F
[2018-02-25] MEDS: CMC:OMEGA-3 FATTY ACIDS (NF) 1,000 MG CAP PO SCH (09:49)
[2018-02-25] MEDS ORDERED: Dextrose 50% Syringe 50 ML* 25 GM/50 ML SYRINGE IV PUSH PRN (12:24)
[2018-02-25] MEDS ORDERED: Nitro Patch/OINT Remove TOPICAL SCH (13:00)
--- NOTE | 2018-02-25 14:02 | CONS ---
CC: Dr. Russell; Dr. Fernandez CARDIOLOGY CONSULTATION NOTE: DATE OF CONSULT: 02/25/18 REASON FOR CONSULT: Chest pain. HISTORY OF PRESENT ILLNESS: This is a very pleasant 78-year-old gentleman who has history of diabetes, hypertension, coronary artery disease and aortic stenosis. He said that he was recovering from a recent hospitalization for pneumonia, at that time he had non-ST elevation NM with an increase in his troponin to 0.27 as well as a nonsustained VT when he had a coughing fit and his magnesium was 1.5, he was started on a beta-cam. He reports that he was hospitalized from 02/06/18 until 02/10/18. He said he was taking it easy until yesterday, he said that he did some yard work less vigorous than normal but he was out a lot of the day picking up some sticks and transporting them in his garden tractor trailer. He said that he was pretty exhausted after doing that, took a nap and woke up around 4 o'clock. Shortly after getting up, he noted pressure on his chest which was associated with some shortness of breath. There was no nausea or diaphoresis, no change in position. He did not tell his first, he went down and had dinner. For dinner he had some cheese and crackers and a Martini and then he had some soup for dinner but because he continued to feel poorly, he told his and ambulance was called. He got nitroglycerin in the ambulance without much change and then he went to the hospital and got 2 more nitroglycerins and a nitro patch and his pain improved. He was admitted overnight and was ruled out. He was noted to be hypertensive with a systolic blood pressure of 200 at home when he first developed a chest pressure. During his admission here, his blood pressure was about 173/81, it came down a little bit with IV hydralazine and nitroglycerin patch. He denies any syncope or near syncope. He does report that this summer he has been even more tired, this summer doing his yard work compared to last summer. He said he gets "pooped" after doing some yard work and has to stop and rest for 10 seconds. He says he feels fatigued and perhaps a little lightheaded after doing his work. He denies any orthopnea or peripheral edema. He has had no fevers, chills, or sweats recently. His cough is resolved. He denies any strokes or mini-strokes or blood in the stool and no edema. He had an echocardiogram performed on 02/07/18 which revealed moderate to severe LVH, severely thickened aortic valve with reduced excursion, moderate to severe aortic stenosis, mean gradient of 38 and valve area of 1.1 cm squared by deep velocities, trace to mild MR, trace TR. Compared to September 2015, the LV function is same, the degree of is worse and his wall thickness is reported as 2.1 at the septum, 2.2 in the posterior wall. His wall thicknesses in September 2015 were 18 mm at the septum and 17 mm at the posterior wall. He had a nuclear stress test in September 2015. At that time, he had no evidence of ischemia, no evidence of an infarct. He had 80% of the maximum predicted heart rate, he did 6 minutes of a Valeriy. He has a history of coronary artery disease and had a cardiac catheterization in October 2015. At that time, his EF was 60%. Proximal LAD had 60% stenosis with a small ulcerative lesion just after the 60% stenosis, left circumflex was normal in size, right coronary artery was a large dominant vessel, proximal artery had eccentric 20% lesion, the PDA had ostial 50 % lesion and there was mild to moderate aortic stenosis with a valve area of 2 cm squared, and it was decided to manage it medically. PAST MEDICAL HISTORY: Includes: 1. Hypertension. 2. Aortic stenosis. 3. Recent pneumonia 01/2015. 4. Nonsustained VT and elevation of troponin to 0.27 during that hospitalization 5. CAD at cath 2015 6. diabetes and diabetic retinopathy 7. history of gout 8. obstructive 9. sleep apnea 10. obesity. MEDICATIONS: As an outpatient include: 1. Colchicine 0.6 mg a day p.r.n. 2. Atorvastatin 20 mg a day. 3. Aspirin 81 mg a day. 4. Eplerenone 50 mg q.a.m. 5. Doxazosin 2 mg at bedtime. 6. Vitamin B12 2000 mcg daily. 7. Cholecalciferol 1000 mcg a day. 8. Metoprolol tartrate 25 mg b.i.d. 9. Irbesartan 300 mg a day. 10. Hydrochlorothiazide 25 mg a day. 11. Felodipine 10 mg q.a.m. 12. Tramadol 50 to 100 mg q.6 hours. 13. Cialis 5 to 10 mg daily p.r.n. 14. [place]-3 1000 mg. 15. Multivitamins 1 tablet a day. As an inpatient, he is on: 1. Amlodipine 10 mg a day. 2. Aspirin 81 mg a day. 3. Acetaminophen. 4. Eplerenone 50 mg a day. 5. Hydrochlorothiazide 25 mg a day. 6. Losartan 25 mg b.i.d. 7. Metoprolol tartrate 25 mg b.i.d., new at last admission 2 weeks ago. 8. Multivitamin. 9. Nitroglycerin ointment 1 inch b.i.d. 10. Ondansetron 4 mg q.6 hours p.r.n. ALLERGIES: Include CODEINE, LABETALOL, METOPROLOL, METFORMIN. He says he gets nausea with CODEINE and diarrhea with METFORMIN. SOCIAL HISTORY: He is , he has 3 adult children. He drinks 1 to 2 alcoholic beverages at night on the weekends and occasional wine during the week. He drinks 3 cups of caffeinated coffee a day. 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 REVIEW OF SYSTEMS: Review of systems x10 was negative except as above. PHYSICAL EXAM: He is a well-developed obese gentleman in no apparent distress. Weight 241 pounds. Vital Signs: Blood pressure 145/52 this morning at 7:51, pulse of 50. No significant JVD. Carotids somewhat delayed, 2+. Cardiac: S1 , S2 with a 4/6 systolic ejection murmur late peaking with a single S2 heard across the precordium. Chest was clear, no CVAT. Abdomen: Bowel sounds present. Nontender. Femoral pulses intact without bruits. Distal pulses intact , no edema. Motor strength 5/5 bilaterally. Deep tendon reflexes 2/4. He is alert and oriented x3. Negative Josy sign. Skin turgor normal. Extraocular movements are intact. DIAGNOSTIC STUDIES/LAB DATA: White count of 3.9, hemoglobin 11.3, hematocrit 33 , platelet count of 149,000 and his hematocrit similar to 02/09/18 when it was 31. D-dimer mildly elevated at 293. Sodium 131, potassium, creatinine 0.87, calcium 8.5, hemoglobin A1c 7.4. Troponins 0.03, 0.03, 0.03. Cholesterol 119, LDL 50, BNP 118. Chest x-ray by report from yesterday, mild vascular congestion. 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 IMPRESSION: Mr. Dillard has history of aortic stenosis probably severe, coronary disease in the past, nonsustained ventricular tachycardia during his hospitalization last month, as well as a non-ST elevation myocardial infarction last month in the setting of pneumonia. His chest pain is of unclear etiology. So far, his troponins have been flat and the EKG changes are nonspecific. His discomfort could be noncardiac or could represent progression of his coronary disease and aortic valve disease. I am also concerned about his decreased exercise tolerance earlier this summer compared to last year. PLAN/RECOMMENDATIONS: Given the overall picture, I have recommended that he remain in the hospital for further evaluation. I suggest that we could proceed with cardiac catheterization to further evaluate for progression of his coronary disease as well as progression of his aortic stenosis. If there remains some question as to whether he is symptomatic from the aortic stenosis, we could consider carefully monitored stress test. He has a tendency towards brachycardia and will not tolerate much in the way of rate lowering agents. In addition, if indeed his is severe, he may not tolerate much in the way of afterload reducing agents. At some point, he may need a pacemaker to allow more definitive control of his blood pressure, angina with rate controlled agents. He has LVH, perhaps out of proportion to his blood pressure and aortic valve disease. We will consider the possibility of an infiltrative cardiomyopathy and obtain an SPEP. Would continue nitrates for now. Would continue IV heparin as you are doing. Would continue aspirin. Would ambulate on telemetry and see if he reproduces his pain. Would maintain his potassium over 4 and check his magnesium. [id number]/[facility] #: [id number] [facility] HEALTHSanket
[2018-02-25 14:48] LABS: Urine Appearance Cloudy; Urine Blood Negative (Negative); Urine Color Yellow; Urine Ketones Negative (Negative); Urine Protein Negative (Negative); Urine Urobilinogen Negative (Negative)
[2018-02-25] MEDS: Heparin DRIP 25,000 UNITS(*) 25,000 UNITS/500 ML BAG IV SCH (16:20)
[2018-02-25] MEDS ORDERED: Insulin Detemir (NF) 100 UNIT/ML 10 ML VIAL SUBCUT SCH (21:00)
[2018-02-25] MEDS: Insulin GLARGINE(*) 1 UNITS UNIT SUBCUT SCH (22:02)
[2018-02-25] MEDS: Losartan TAB* 25 MG PO SCH (22:04)
[2018-02-25] MEDS: Nitro Patch/OINT Remove PATCH OFF SCH (22:05)
[2018-02-26] MEDS: Heparin DRIP 25,000 UNITS(*) 25,000 UNITS/500 ML BAG IV SCH (01:20)
[2018-02-26] MEDS: Nitroglycerin 2% OINT* 1 GM PAK TOPICAL SCH ×4 (01:22→16:37)
[2018-02-26 05:09] LABS: ABS Basophils 0 10^3/ul (0-0.2); ABS Eosinophils 0.1 10^3/ul (0-0.6); ABS Lymphocytes 0.8 10^3/ul (1.0-4.8); ABS Monocytes 0.5 10^3/ul (0-0.8); ABS Neutrophils 2.3 10^3/ul (1.5-7.7); ABS Nucleated RBC 0 10^3/ul; Eosinophil % 3.2 % (0-6); Hematocrit 32 % (42-52); Hemoglobin 10.9 g/dl (14.0-18.0); Mean Corpuscular HGB Conc 34 g/dl (31-36); Mean Corpuscular Hemoglobin 32 pg (27-31); Mean Corpuscular Volume 94 fL (80-94); Mean Platelet Volume 8.6 fL (7.4-10.4); Nucleated Red Blood Cells % 0; Platelet Count 141 10^3/ul (150-450); Red Blood Count 3.39 10^6/ul (4.00-5.40); Red Cell Distribution Width 14 % (10.5-15); White Blood Count 3.8 10^3/ul (3.5-10.8)
[2018-02-26 05:24] LABS: EGFR Non-African American 79.4 (>60)
[2018-02-26] MEDS: Insulin LISPRO* 1 UNITS UNIT SUBCUT SCH ×6 (08:32→17:38)
[2018-02-26] MEDS: Insulin GLARGINE(*) 1 UNITS UNIT SUBCUT SCH ×2 (08:34→21:25)
[2018-02-26] MEDS: Hydrochlorothiazide TAB* 25 MG PO SCH (08:36)
[2018-02-26] MEDS: Losartan TAB* 25 MG PO SCH ×2 (08:36→21:45)
[2018-02-26] MEDS: Multivitamins/Minerals TAB PO SCH (08:36)
[2018-02-26] MEDS: Aspirin 81 mg CHEW TAB* 81 MG TAB.CHEW PO SCH (08:37)
[2018-02-26] MEDS: Metoprolol Tartrate TAB* 25 MG PO SCH ×2 (08:37→21:45)
[2018-02-26] MEDS: Atorvastatin* 20 MG TAB PO SCH (08:37)
[2018-02-26] MEDS: amLODIPine TAB* 5 MG PO SCH ×2 (08:38→21:36)
[2018-02-26] MEDS: CMC:OMEGA-3 FATTY ACIDS (NF) 1,000 MG CAP PO SCH (08:42)
[2018-02-26] MEDS ORDERED: Docusate CAP* 100 MG PO PRN (09:16)
[2018-02-26] MEDS ORDERED: Polyethylene Glycol 3350* 17 GM PACKET PO PRN (09:16)
[2018-02-26] MEDS: CMCS - Epleronone (NF) 25 MG TAB PO SCH (09:24)
--- NOTE | 2018-02-26 12:30 | PN ---
Subjective Date of Service: 02/26/18 Interval History: Denies chest pain, SOB, abdominal pain, HAYS, f/c/n/v. No BM in 2 days. Objective Active Medications: Acetaminophen (Tylenol Tab*) 650 mg PO Q4H PRN PRN Reason: FEVER/PAIN Amlodipine Besylate (Norvasc Tab*) 2.5 mg PO BID [facility] Last Admin: 02/26/18 08:38 Dose: 2.5 mg Aspirin (Aspirin 81 Mg Chew Tab*) 81 mg PO QAM [facility] Last Admin: 02/26/18 08:37 Dose: 81 mg Atorvastatin Calcium (Lipitor*) 20 mg PO DAILY [facility] Last Admin: 02/26/18 08:37 Dose: 20 mg Dextrose (D50w Syringe 50 Ml*) 12.5 gm IV PUSH .FOR FS < 60 - SS PRN PRN Reason: FS < 60 Dextrose (D50w Syringe 50 Ml*) 12.5 gm IV PUSH .FOR FS < 60 - SS PRN PRN Reason: FS < 60 Docusate Sodium (Colace Cap*) 100 mg PO DAILY PRN PRN Reason: CONSTIPATION Doxazosin Mesylate (Cardura Tab*) 2 mg PO BEDTIME [facility] Last Admin: 02/25/18 22:04 Dose: 2 mg Eplerenone (Inspra (Nf)) 50 mg PO QAM [facility]; Protocol Last Admin: 02/26/18 09:24 Dose: 50 mg Fish Oil (Fish Oil (Nf)) 1,000 mg PO DAILY [facility]; Protocol Last Admin: 02/26/18 08:42 Dose: Not Given Heparin Sodium (Porcine) (Heparin Vial(*)) 0 units IV .FOR BOLUSES PRN PRN Reason: HEPARIN DRIP BOLUSES Last Admin: 02/25/18 16:19 Dose: 2,000 units Hydrochlorothiazide (Hydrodiuril Tab*) 25 mg PO QAM [facility] Last Admin: 02/26/18 08:36 Dose: 25 mg Heparin Sodium/Dextrose (Heparin Drip 25,000 Units(*)) 25,000 units in 500 mls @ 0 mls/hr IV PER RATE [facility]; Protocol Last Admin: 02/26/18 01:20 EDT Dose: 24 mls/hr Insulin Glargine (Lantus(*)) 25 units SUBCUT Q12H [facility] Last Admin: 02/26/18 08:34 Dose: 25 units Insulin Human Lispro (Humalog*) 10 units SUBCUT [facility] Last Admin: 02/26/18 12:14 Dose: 10 units Insulin Human Lispro (Humalog*) 0 units SUBCUT [facility]; Protocol Last Admin: 02/26/18 12:15 Dose: 4 units Losartan Potassium (Cozaar Tab*) 25 mg PO BID [facility] Last Admin: 02/26/18 08:36 Dose: 25 mg Metoprolol Tartrate (Lopressor Tab*) 25 mg PO BID [facility] Last Admin: 02/26/18 08:37 Dose: 25 mg Multivitamins/Minerals (Theragran/Minerals Tab*) 1 tab PO DAILY [facility] Last Admin: 02/26/18 08:36 Dose: 1 tab Nitroglycerin (Nitroglycerin 2% Oint*) 1 inch TOPICAL 0800,1400 [facility]; Protocol Last Admin: 02/26/18 09:22 Dose: 1 inch Ondansetron HCl (Zofran Inj*) 4 mg IV Q6H PRN PRN Reason: NAUSEA Pharmacy Profile Note (Nitro Patch/Oint Remove*) 1 note PATCH OFF 2100 [facility] Last Admin: 02/25/18 22:05 Dose: 1 note Polyethylene Glycol/Electrolytes (Miralax*) 17 gm PO DAILY PRN PRN Reason: CONSTIPATION Vital Signs - 8 hr 02/26/18 02/26/18 02/26/18 05:01 07:40 08:00 Temperature 97.8 F 97.9 F Pulse Rate 54 54 Respiratory 16 16 16 Rate Blood Pressure 154/57 155/58 (mmHg) O2 Sat by Pulse 96 96 Oximetry 02/26/18 11:34 Temperature 97.9 F Pulse Rate 51 Respiratory 16 Rate Blood Pressure 152/51 (mmHg) O2 Sat by Pulse 96 Oximetry Oxygen Devices in Use Now: None Appearance: NAD Eyes: No Scleral Icterus, PERRLA Ears/Nose/Mouth/Throat: NL Teeth, Lips, Gums, Mucous Membranes Moist Neck: NL Appearance and Movements; NL JVP Respiratory: Symmetrical Chest Expansion and Respiratory Effort, Clear to Auscultation Cardiovascular: RRR, - - 3/6 holosytolic murmer across precordium, no r/g Abdominal: NL Sounds; No Tenderness; No Distention Extremities: No Edema, - - trace edema b/l Skin: No Rash or Ulcers, - - s/p Mohs scar right forehead and skin biopsy on back Neurological: Alert and Oriented x 3, NL Sensation, NL Muscle Strength and Tone Nutrition: Taking PO's Result Diagrams: 02/26/18 05:00 02/26/18 05:00 Additional Lab and Data: Laboratory Results - last 24 hr 02/25/18 02/25/18 02/25/18 13:37 14:27 16:42 WBC RBC Hgb Hct MCV MCH MCHC RDW Plt Count MPV Neut % (Auto) Lymph % (Auto) [place] % (Auto) Eos % (Auto) Baso % (Auto) Absolute Neuts (auto) Absolute Lymphs (auto) Absolute Monos (auto) Absolute Eos (auto) Absolute Basos (auto) Absolute Nucleated RBC Nucleated RBC % APTT 45.4 H BUN Creatinine Est GFR ( Amer) Est GFR (Non-Af Amer) POC Glucose (mg/dL) 113 H Urine Color Yellow Urine Appearance Cloudy Urine pH 6.0 Ur Specific [place] 1.010 Urine Protein Negative Urine Ketones Negative Urine Blood Negative Urine Nitrate Negative Urine Bilirubin Negative Urine Urobilinogen Negative Ur Leukocyte Esterase Negative Urine Glucose Negative 02/25/18 02/26/18 02/26/18 22:42 05:00 05:00 WBC 3.8 RBC 3.39 L Hgb 10.9 L Hct 32 L MCV 94 MCH 32 H MCHC 34 RDW 14 Plt Count 141 L MPV 8.6 Neut % (Auto) 60.3 Lymph % (Auto) 21.[address] [place] % (Auto) 14.4 H Eos % (Auto) 3.2 Baso % (Auto) 1.1 Absolute Neuts (auto) 2.3 Absolute Lymphs (auto) 0.8 L Absolute Monos (auto) 0.5 Absolute Eos (auto) 0.1 Absolute Basos (auto) 0 Absolute Nucleated RBC 0 Nucleated RBC % 0 APTT 57.3 H BUN 18 Creatinine 0.92 Est GFR ( Amer) 96.0 Est GFR (Non-Af Amer) 79.4 POC Glucose (mg/dL) Urine Color Urine Appearance Urine pH Ur Specific [place] Urine Protein Urine Ketones Urine Blood Urine Nitrate Urine Bilirubin Urine Urobilinogen Ur Leukocyte Esterase Urine Glucose 02/26/18 02/26/18 02/26/18 05:00 08:02 11:30 WBC RBC Hgb Hct MCV MCH MCHC RDW Plt Count MPV Neut % (Auto) Lymph % (Auto) [place] % (Auto) Eos % (Auto) Baso % (Auto) Absolute Neuts (auto) Absolute Lymphs (auto) Absolute Monos (auto) Absolute Eos (auto) Absolute Basos (auto) Absolute Nucleated RBC Nucleated RBC % APTT 54.1 H BUN Creatinine Est GFR ( Amer) Est GFR (Non-Af Amer) POC Glucose (mg/dL) 250 H 214 H Urine Color Urine Appearance Urine pH Ur Specific [place] Urine Protein Urine Ketones Urine Blood Urine Nitrate Urine Bilirubin Urine Urobilinogen Ur Leukocyte Esterase Urine Glucose Assess/Plan/Problems-Billing Assessment: 78 yo male PMH moderate-severe (TESHA 1.1), diastolic CHF, CAD ([facility] October 2015 with pLAD 60%, RCA 20%, ostial PDA 50%), 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 #CAD, ACS rule out. vs symptomatic - story concerning and Dr. Patel has requested [facility] 02/27. 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 Russell agrees, will proceed. - troponins negative, but recent troponin elevation - appreciate [facility] recs from Dr. Patel - continue statin, BB, aspirin - on heparin gtt and nitro paste(during day). Continue per cardiology #mod-severe - avoid excessive preload reduction #HTN and diastolic CHF - continue losartan 100mg - amlodipine has been decreased to 2.5mg - continue metoprolol 25 bid - continue HCTZ 25mg - continue eplerone 50mg - continue cardura 2mg #IDDM - home is on levemir 66 U qhs with 10-14 qac - currently 25U lantus BID with 10 qac + SSI. will be npo midnight - A1C 7.5% few weeks ago FEN: cardiac, carbohydrate consistent Dispo: medicine inpatient CODE: FULL Attending: Humberto Moran
[2018-02-26] MEDS: Doxazosin TAB* 2 MG PO SCH (21:44)
[2018-02-26] MEDS: Nitro Patch/OINT Remove PATCH OFF SCH (21:48)
[2018-02-27 06:06] LABS: ABS Basophils 0 10^3/ul (0-0.2); ABS Eosinophils 0.1 10^3/ul (0-0.6); ABS Lymphocytes 0.9 10^3/ul (1.0-4.8); ABS Monocytes 0.6 10^3/ul (0-0.8); ABS Neutrophils 1.7 10^3/ul (1.5-7.7); ABS Nucleated RBC 0 10^3/ul; Eosinophil % 3.7 % (0-6); Hematocrit 32 % (42-52); Hemoglobin 11.2 g/dl (14.0-18.0); Lymphocyte % 25.9 % (25-47); Mean Corpuscular HGB Conc 35 g/dl (31-36); Mean Corpuscular Hemoglobin 33 pg (27-31); Mean Corpuscular Volume 93 fL (80-94); Nucleated Red Blood Cells % 0.1; Platelet Count 143 10^3/ul (150-450); Red Blood Count 3.43 10^6/ul (4.00-5.40); Red Cell Distribution Width 14 % (10.5-15); White Blood Count 3.3 10^3/ul (3.5-10.8)
[2018-02-27 06:36] LABS: EGFR Non-African American 80.4 (>60)
[2018-02-27] MEDS: Insulin LISPRO* 1 UNITS UNIT SUBCUT SCH ×6 (09:44→18:10)
[2018-02-27] MEDS: Insulin GLARGINE(*) 1 UNITS UNIT SUBCUT SCH ×2 (09:45→20:19)
[2018-02-27] MEDS: Nitroglycerin 2% OINT* 1 GM PAK TOPICAL SCH (09:45)
[2018-02-27] MEDS: Multivitamins/Minerals TAB PO SCH (09:55)
[2018-02-27] MEDS: Atorvastatin* 20 MG TAB PO SCH (09:56)
[2018-02-27] MEDS: Aspirin 81 mg CHEW TAB* 81 MG TAB.CHEW PO SCH (09:56)
[2018-02-27] MEDS: Hydrochlorothiazide TAB* 25 MG PO SCH (09:56)
[2018-02-27] MEDS: Losartan TAB* 25 MG PO SCH ×2 (09:56→20:17)
[2018-02-27] MEDS: CMC:OMEGA-3 FATTY ACIDS (NF) 1,000 MG CAP PO SCH (09:57)
[2018-02-27] MEDS ORDERED: Magnesium Sulfate IV* 3 GM in NS 0.9% 100 ML* 100 ML IVPB ONE (11:00)
[2018-02-27] MEDS ORDERED: Metoprolol Tartrate IV* 1 MG/ML 5 ML VIAL ONE (13:56)
--- NOTE | 2018-02-27 14:52 | PN ---
Subjective Date of Service: 02/27/18 Interval History: f/u , CP Patient with markedly abnormal exercise stress echocardiogram today (angina, ischemic ekg changes, drop in BP, drop in LVEF and NSVT recurrent in recovery) Currently pain free without dyspnea Medications Active Medications: Acetaminophen (Tylenol Tab*) 650 mg PO Q4H PRN PRN Reason: FEVER/PAIN Amlodipine Besylate (Norvasc Tab*) 2.5 mg PO BID [facility] Last Admin: 02/26/18 21:36 Dose: 2.5 mg Aspirin (Aspirin 81 Mg Chew Tab*) 81 mg PO QAM [facility] Last Admin: 02/27/18 09:56 Dose: 81 mg Atorvastatin Calcium (Lipitor*) 20 mg PO DAILY [facility] Last Admin: 02/27/18 09:56 Dose: 20 mg Dextrose (D50w Syringe 50 Ml*) 12.5 gm IV PUSH .FOR FS < 60 - SS PRN PRN Reason: FS < 60 Dextrose (D50w Syringe 50 Ml*) 12.5 gm IV PUSH .FOR FS < 60 - SS PRN PRN Reason: FS < 60 Docusate Sodium (Colace Cap*) 100 mg PO DAILY PRN PRN Reason: CONSTIPATION Doxazosin Mesylate (Cardura Tab*) 2 mg PO BEDTIME [facility] Last Admin: 02/26/18 21:44 Dose: 2 mg Eplerenone (Inspra (Nf)) 50 mg PO QAM [facility]; Protocol Last Admin: 02/26/18 09:24 Dose: 50 mg Fish Oil (Fish Oil (Nf)) 1,000 mg PO DAILY [facility]; Protocol Last Admin: 02/27/18 09:57 Dose: Not Given Heparin Sodium (Porcine) (Heparin Vial(*)) 0 units IV .FOR BOLUSES PRN PRN Reason: HEPARIN DRIP BOLUSES Last Admin: 02/25/18 16:19 Dose: 2,000 units Hydrochlorothiazide (Hydrodiuril Tab*) 25 mg PO QAM [facility] Last Admin: 02/27/18 09:56 Dose: 25 mg Insulin Glargine (Lantus(*)) 25 units SUBCUT Q12H [facility] Last Admin: 02/27/18 09:45 Dose: Not Given Insulin Human Lispro (Humalog*) 10 units SUBCUT AC [facility] Last Admin: 02/27/18 09:44 Dose: Not Given Insulin Human Lispro (Humalog*) 0 units SUBCUT [facility]; Protocol Last Admin: 02/27/18 09:44 Dose: Not Given Losartan Potassium (Cozaar Tab*) 25 mg PO BID [facility] Last Admin: 02/27/18 09:56 Dose: 25 mg Metoprolol Tartrate (Lopressor Tab*) 25 mg PO BID [facility] Last Admin: 02/26/18 21:45 Dose: 25 mg Multivitamins/Minerals (Theragran/Minerals Tab*) 1 tab PO DAILY [facility] Last Admin: 02/27/18 09:55 Dose: 1 tab Ondansetron HCl (Zofran Inj*) 4 mg IV Q6H PRN PRN Reason: NAUSEA Polyethylene Glycol/Electrolytes (Miralax*) 17 gm PO DAILY PRN PRN Reason: CONSTIPATION Objective Vital Signs: Temp Pulse Resp BP Pulse Ox 97.8 F 51 16 143/55 97 02/27/18 08:30 02/27/18 08:30 02/27/18 08:30 02/27/18 08:30 02/27/18 08:30 Oxygen Devices in Use Now: CPAP Appearance: nad, pleasant Neck: NL Appearance and Movements; NL JVP, Trachea Midline Respiratory: Symmetrical Chest Expansion and Respiratory Effort, Clear to Auscultation Cardiovascular: RRR, - - 4/6 systolic murmur, singular s2 Abdominal: - - obese Extremities: No Edema Neurological: Alert and Oriented x 3 Laboratory Results: 02/27/18 05:26 02/27/18 05:26 INR (Anticoag Therapy) 0.91 (0.77-1.02) 02/24/18 21:30 APTT 31.4 seconds (26.0-36.3) 02/27/18 05:26 Total Bilirubin 1.00 mg/dL (0.2-1.0) 02/24/18 21:30 AST 17 U/L (13-39) 02/24/18 21:30 ALT 19 U/L (7-52) 02/24/18 21:30 Alkaline Phosphatase 72 U/L (34-104) 02/24/18 21:30 CK-MB (CK-2) 2.3 ng/mL (0.6-6.3) 02/24/18 21:30 B-Natriuretic Peptide 118 pg/mL (<=100) H 02/24/18 21:30 Total Protein 5.7 g/dL (6.4-8.9) L 02/24/18 21:30 Albumin 3.3 g/dL (3.2-5.2) 02/24/18 21:30 Globulin 2.4 g/dL (2-4) 02/24/18 21:30 Albumin/Globulin Ratio 1.4 (1-3) 02/24/18 21:30 Triglycerides 69 mg/dL 02/25/18 07:08 Cholesterol 119 mg/dL 02/25/18 07:08 LDL Cholesterol 50 mg/dL 02/25/18 07:08 HDL Cholesterol 55.3 mg/dL 02/25/18 07:08 02/24/18 02/25/18 02/25/18 21:30 00:02 03:42 Troponin I 0.03 0.03 0.03 02/25/18 07:08 Troponin I 0.03 Diagnostic Imaging: cardiac cath 10/2015: 60% pLAD lesion ulcerated, no significant lcx disease, 50% RPDA disease echo 02/07/2018: moderate to severe cLVH, LVEF 60%, moderate to severe mean gradient 38 mmHg Assessment/Plan I am unsure if patients markedly abnormal stress echo is due to progression of CAD + or alone. I have recommended cardiac catheterization diagnostic. Risks, benefits and alternatives were discussed and patient wished to proceed. Further decision making will be made considering the results of this study ( i.e. BHARGAVI PCI vs. surgery). Stress test results discussed with Dr. Akbar
[2018-02-27] MEDS ORDERED: Heparin DRIP 25,000 UNITS(*) 25,000 UNITS/500 ML BAG IV SCH (17:00)
--- NOTE | 2018-02-27 17:22 | PN ---
Subjective Date of Service: 02/27/18 Interval History: Received call from Dr Akbar who will be taking patient for cardiac cath tomorrow. He instructed to continue heparin and monitor closely on tele. Lying in bed. Denies cp, sob, n/v. 12 point ROS completed and all other negative. Patient stated understanding for plan. Objective Active Medications: Acetaminophen (Tylenol Tab*) 650 mg PO Q4H PRN PRN Reason: FEVER/PAIN Amlodipine Besylate (Norvasc Tab*) 2.5 mg PO BID [facility] Last Admin: 02/26/18 21:36 Dose: 2.5 mg Aspirin (Aspirin 81 Mg Chew Tab*) 81 mg PO QAM [facility] Last Admin: 02/27/18 09:56 Dose: 81 mg Atorvastatin Calcium (Lipitor*) 20 mg PO DAILY [facility] Last Admin: 02/27/18 09:56 Dose: 20 mg Dextrose (D50w Syringe 50 Ml*) 12.5 gm IV PUSH .FOR FS < 60 - SS PRN PRN Reason: FS < 60 Dextrose (D50w Syringe 50 Ml*) 12.5 gm IV PUSH .FOR FS < 60 - SS PRN PRN Reason: FS < 60 Docusate Sodium (Colace Cap*) 100 mg PO DAILY PRN PRN Reason: CONSTIPATION Doxazosin Mesylate (Cardura Tab*) 2 mg PO BEDTIME [facility] Last Admin: 02/26/18 21:44 Dose: 2 mg Eplerenone (Inspra (Nf)) 50 mg PO QAM [facility]; Protocol Last Admin: 02/26/18 09:24 Dose: 50 mg Fish Oil (Fish Oil (Nf)) 1,000 mg PO DAILY [facility]; Protocol Last Admin: 02/27/18 09:57 Dose: Not Given Heparin Sodium (Porcine) (Heparin Vial(*)) 0 units IV .FOR BOLUSES PRN PRN Reason: HEPARIN DRIP BOLUSES Last Admin: 02/25/18 16:19 Dose: 2,000 units Hydrochlorothiazide (Hydrodiuril Tab*) 25 mg PO QAM [facility] Last Admin: 02/27/18 09:56 Dose: 25 mg Sodium Chloride (Ns 0.9% 1000 Ml*) 1,000 mls @ 100 mls/hr IV .per rate [facility] Heparin Sodium/Dextrose (Heparin Drip 25,000 Units(*)) 25,000 units in 500 mls @ 0 mls/hr IV PER RATE [facility]; Protocol Insulin Glargine (Lantus(*)) 25 units SUBCUT Q12H [facility] Last Admin: 02/27/18 09:45 Dose: Not Given Insulin Human Lispro (Humalog*) 10 units SUBCUT AC [facility] Last Admin: 02/27/18 09:44 Dose: Not Given Insulin Human Lispro (Humalog*) 0 units SUBCUT AC [facility]; Protocol Last Admin: 02/27/18 09:44 Dose: Not Given Losartan Potassium (Cozaar Tab*) 25 mg PO BID [facility] Last Admin: 02/27/18 09:56 Dose: 25 mg Metoprolol Tartrate (Lopressor Tab*) 25 mg PO BID [facility] Last Admin: 02/26/18 21:45 Dose: 25 mg Multivitamins/Minerals (Theragran/Minerals Tab*) 1 tab PO DAILY [facility] Last Admin: 02/27/18 09:55 Dose: 1 tab Ondansetron HCl (Zofran Inj*) 4 mg IV Q6H PRN PRN Reason: NAUSEA Polyethylene Glycol/Electrolytes (Miralax*) 17 gm PO DAILY PRN PRN Reason: CONSTIPATION Oxygen Devices in Use Now: None, CPAP Appearance: Well appearing, NAD Eyes: No Scleral Icterus Ears/Nose/Mouth/Throat: Mucous Membranes Moist Neck: NL Appearance and Movements; NL JVP Respiratory: Symmetrical Chest Expansion and Respiratory Effort, Clear to Auscultation Cardiovascular: RRR - Murmur. No edema Abdominal: NL Sounds; No Tenderness; No Distention Extremities: No Edema Skin: No Rash or Ulcers Neurological: Alert and Oriented x 3 Nutrition: Taking PO's Result Diagrams: 02/27/18 05:26 02/27/18 05:26 Additional Lab and Data: Laboratory Results - last 24 hr 02/27/18 02/27/18 02/27/18 05:26 05:26 05:26 WBC 3.3 L RBC 3.43 L Hgb 11.2 L Hct 32 L MCV 93 MCH 33 H MCHC 35 RDW 14 Plt Count 143 L MPV 9.0 Neut % (Auto) 52.4 Lymph % (Auto) 25.9 Treasure % (Auto) 17.0 H Eos % (Auto) 3.7 Baso % (Auto) 1.0 Absolute Neuts (auto) 1.7 Absolute Lymphs (auto) 0.9 L Absolute Monos (auto) 0.6 Absolute Eos (auto) 0.1 Absolute Basos (auto) 0 Absolute Nucleated RBC 0 Nucleated RBC % 0.1 APTT 31.4 Sodium 135 Potassium 4.2 Chloride 102 Carbon Dioxide 28 Anion Gap 5 BUN 17 Creatinine 0.91 Est GFR ( Amer) 97.2 Est GFR (Non-Af Amer) 80.4 BUN/Creatinine Ratio 18.7 Glucose 150 H POC Glucose (mg/dL) Calcium 8.9 Magnesium 1.6 L 02/27/18 02/27/18 02/27/18 05:37 08:24 12:32 WBC RBC Hgb Hct MCV MCH MCHC RDW Plt Count MPV Neut % (Auto) Lymph % (Auto) Treasure % (Auto) Eos % (Auto) Baso % (Auto) Absolute Neuts (auto) Absolute Lymphs (auto) Absolute Monos (auto) Absolute Eos (auto) Absolute Basos (auto) Absolute Nucleated RBC Nucleated RBC % APTT Sodium Potassium Chloride Carbon Dioxide Anion Gap BUN Creatinine Est GFR ( Amer) Est GFR (Non-Af Amer) BUN/Creatinine Ratio Glucose POC Glucose (mg/dL) 161 H 172 H 246 H Calcium Magnesium Diagnostic Imaging: Stress test today. Cardiac Cath tomorrow. 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 #CAD, ACS rule out. vs symptomatic - story concerning and Dr. Patel has requested [facility] 02/27. If outpatient and fire protection engineer Dr. Russell agrees, will proceed. - troponins negative, but recent troponin elevation - appreciate [facility] recs from Dr. Patel - continue statin, BB, aspirin - on heparin gtt and nitro paste(during day). Continue per cardiology #mod-severe - avoid excessive preload reduction #HTN and diastolic CHF - continue losartan 100mg - amlodipine has been decreased to 2.5mg - continue metoprolol 25 bid - continue HCTZ 25mg - continue eplerone 50mg - continue cardura 2mg #IDDM - home is on levemir 66 U qhs with 10-14 qac - currently 25U lantus BID with 10 qac + SSI. will be npo midnight - A1C 7.5% few weeks ago FEN: cardiac, carbohydrate consistent Dispo: medicine inpatient CODE: FULL - Patient Problems (1) CAD (coronary artery disease) Comment: - Stress test completed today by Dr. Patel. Plan for [facility] tomoro 02/28. - Continue heparin gtt per cardiology. - Monitor closely on tele (2) Aortic stenosis Comment: - As above - Avoid excessive preload reduction (3) Hypertension Comment: - Continue current regime (4) Diabetes Comment: - 25 u lantus BID with SSI + 10 u qac - Morning dose lantus and SSI coverage held this morning due to NPO status. - Will receive scheduled doses tonight. (5) Diastolic CHF Comment: - No evidence of exacerbation currently - Continue meds Status and Disposition: Cardiac Cath tomorrow. Attending: Jorden Huang
[2018-02-27] MEDS: amLODIPine TAB* 5 MG PO SCH ×2 (17:45→20:15)
[2018-02-27] MEDS: CMCS - Epleronone (NF) 25 MG TAB PO SCH (17:45)
[2018-02-27] MEDS: Metoprolol Tartrate TAB* 25 MG PO SCH ×2 (17:46→20:16)
[2018-02-27] MEDS: Heparin VIAL(*) 5000 UNITS/ML VIAL (FIVE THOUSAND) IV PRN (18:23)
[2018-02-27 18:43] LABS: ABS Basophils 0 10^3/ul (0-0.2); ABS Eosinophils 0.1 10^3/ul (0-0.6); ABS Lymphocytes 0.7 10^3/ul (1.0-4.8); ABS Monocytes 0.5 10^3/ul (0-0.8); ABS Neutrophils 2.2 10^3/ul (1.5-7.7); ABS Nucleated RBC 0 10^3/ul; Eosinophil % 2.4 % (0-6); Hematocrit 34 % (42-52); Hemoglobin 11.7 g/dl (14.0-18.0); Lymphocyte % 20.9 % (25-47); Mean Corpuscular HGB Conc 35 g/dl (31-36); Mean Corpuscular Hemoglobin 32 pg (27-31); Mean Corpuscular Volume 94 fL (80-94); Mean Platelet Volume 8.7 fL (7.4-10.4); Nucleated Red Blood Cells % 0.1; Platelet Count 155 10^3/ul (150-450); Red Blood Count 3.61 10^6/ul (4.00-5.40); Red Cell Distribution Width 14 % (10.5-15); White Blood Count 3.5 10^3/ul (3.5-10.8)
[2018-02-27 19:06] LABS: EGFR Non-African American 78.4 (>60)
[2018-02-27] MEDS: Doxazosin TAB* 2 MG PO SCH (20:15)
[2018-02-28] MEDS: Heparin VIAL(*) 5000 UNITS/ML VIAL (FIVE THOUSAND) IV PRN (01:03)
[2018-02-28] MEDS ORDERED: NS 0.9% 1000 ML* 1,000 ML IV SCH ×2 (05:00→09:15)
[2018-02-28] MEDS ORDERED: Heparin 2 UNITS/ML IVPREMIX* 2,000 ML IV ONE (07:28)
[2018-02-28] MEDS ORDERED: Iohexol 350 (CONTRAST) 200 ML MDV IV ONE (07:28)
[2018-02-28] MEDS ORDERED: Lidocaine 1% INJ* 10 MG/ML 30 ML SDV ONE (07:28)
[2018-02-28 07:30] LABS: ABS Basophils 0 10^3/ul (0-0.2); ABS Eosinophils 0.1 10^3/ul (0-0.6); ABS Lymphocytes 0.7 10^3/ul (1.0-4.8); ABS Monocytes 0.6 10^3/ul (0-0.8); ABS Neutrophils 2.5 10^3/ul (1.5-7.7); ABS Nucleated RBC 0 10^3/ul; Eosinophil % 3.2 % (0-6); Hematocrit 33 % (42-52); Hemoglobin 11.2 g/dl (14.0-18.0); Lymphocyte % 18.3 % (25-47); Mean Corpuscular HGB Conc 34 g/dl (31-36); Mean Corpuscular Hemoglobin 32 pg (27-31); Mean Corpuscular Volume 94 fL (80-94); Mean Platelet Volume 9.2 fL (7.4-10.4); Nucleated Red Blood Cells % 0.1; Platelet Count 147 10^3/ul (150-450); Red Blood Count 3.48 10^6/ul (4.00-5.40); Red Cell Distribution Width 14 % (10.5-15)
[2018-02-28] MEDS: Aspirin 81 mg CHEW TAB* 81 MG TAB.CHEW PO SCH (07:44)
[2018-02-28] MEDS ORDERED: fentaNYL* 50 MCG/ML 2 ML VIAL (100 MCG VIAL) ONE (07:46)
[2018-02-28] MEDS ORDERED: Midazolam* 1 MG/ML 10 ML VIAL (10 MG) ONE (07:46)
[2018-02-28] MEDS ORDERED: nitroGLYCERIN DRIP* 25,000 MCG/250 ML BTL ONE (07:46)
[2018-02-28] MEDS ORDERED: VERAPAMIL 2.5 MG/ML 2 ML VIAL ** 5 mg/2 ml ONE (07:46)
[2018-02-28] MEDS ORDERED: Heparin(*) 1000 UNIT/ML 10 ML VIAL CATH LAB IV ONE (07:46)
[2018-02-28] MEDS ORDERED: Amiodarone IV VIAL* 0 ML ONE (08:35)
[2018-02-28] MEDS ORDERED: Amiodarone 360 MG IVPREMIX* 0 MG/0 ML BAG IV ONE (08:35)
[2018-02-28] MEDS: Insulin LISPRO* 1 UNITS UNIT SUBCUT SCH ×2 (09:51→09:52)
[2018-02-28] MEDS: Losartan TAB* 25 MG PO SCH (09:56)
[2018-02-28] MEDS: Atorvastatin* 20 MG TAB PO SCH (09:56)
[2018-02-28] MEDS: Hydrochlorothiazide TAB* 25 MG PO SCH (09:56)
[2018-02-28] MEDS: amLODIPine TAB* 5 MG PO SCH (09:56)
[2018-02-28] MEDS: Multivitamins/Minerals TAB PO SCH (09:58)
[2018-02-28] MEDS: Metoprolol Tartrate TAB* 25 MG PO SCH (09:58)
[2018-02-28] MEDS: CMCS - Epleronone (NF) 25 MG TAB PO SCH (09:59)
[2018-02-28 10:28] LABS: EGFR Non-African American 71.3 (>60)
[2018-02-28] MEDS: CMC:OMEGA-3 FATTY ACIDS (NF) 1,000 MG CAP PO SCH (11:14)
[2018-02-28 11:45] VITALS: BP 175/60
--- NOTE | 2018-02-28 12:37 | CATH ---
CC: Jerman Russell MD; Noa Fernandez MD; Jabari Guerrero MD, [facility] * CARDIAC CATHETERIZATION REPORT: DATE OF PROCEDURE: 02/28/18 - ROOM #434 INDICATION FOR PROCEDURE: Patient is a 78-year-old gentleman with a history of moderate to severe aortic stenosis on recent echocardiogram as well as mild moderate mitral stenosis who presented to the hospital because of atypical sounding chest pressure symptoms and has been feeling more fatigued with any type of exertional activity. He underwent an exercise stress echo by Dr. Jese Rowe during which time, he developed significant left ventricular systolic dysfunction in almost a global pattern with also ventricular tachycardia. He has a history of coronary artery disease with 60% lesion ulcerated in the proximal LAD from 2016. Now for cardiac catheterization to assess progression of coronary artery disease in light of abnormal stress test with an already known history of borderline critical aortic stenosis. PROCEDURE: Coronary arteriography. CONSENT: The patient was interviewed and examined on the floor of the hospital where the risks and benefits were explained. He understood them and wished to proceed. PRE-CATHETERIZATION LABORATORY RESULTS: Hemoglobin and hematocrit of 11.2 and 33 with a platelet count of 147,000, BUN and creatinine of 16 and 0.9. Sodium 135, potassium 4.2, chloride 102, bicarb 28. APPROACH UTILIZED: Right radial artery - it was assessed by ultrasound in the cardiology department after the stress test and found to be acceptable for an approach. EQUIPMENT UTILIZED: 1. Right radial artery sheath - a 6-Tristanian Glidesheath. 2. Diagnostic coronary catheter - a 5-Tristanian TIG 4 curve catheter. 3. The diagnostic guidewire - 260 length Petit curved guidewire. DESCRIPTION OF PROCEDURE: The patient was brought to the cardiovascular laboratory where a formal time-out was performed. The patient was prepped and draped in a sterile fashion. The right radial artery area was anesthetized with 1% lidocaine and under ultrasound guidance, it was cannulated and a sheath was placed. Coronary arteriography was performed utilizing the TIG 4 catheter. Following this, the catheter and sheath were removed and hemostasis was obtained with local pressure. The reverse Barbeau was a B. Of note, the patient received a radial artery cocktail including 300 mcg of nitroglycerin and 3 mg of verapamil. No heparin was utilized as the patient was already on a heparin drip in therapeutic range. The total contrast used was 110 cc of Omnipaque dye, the radiation exposure included 10.1 minutes of fluoroscopy time, the air kerma radiation was 2795 mGy , the DAP radiation was 14,793 microgray/m2. RESULTS: CORONARY ARTERIOGRAPHY: A. Right coronary artery. The right coronary artery supplied the PDA and two posterior left ventricular branches in addition to several acute marginal branches. Calcium was seen within the proximal to mid portion of the vessel. The mid portion had a narrowing noted to be as much as 35%. In the AP cranial view, the ostium of the PDA was seen to have a lesion that appeared to be approximately 75% and eccentric in nature. There were otherwise mild luminal irregularities but no significant lesion seen. B. Left coronary artery: 1. Left main. The left main was calcified. There was no significant obstruction, the degree of luminal reduction appeared to be perhaps 25% to 30% due to the calcium. 2. Left anterior descending artery. The proximal to mid portion of the left anterior descending artery had heavy calcification. A proximal lesion in the left anterior descending artery of 70% to 75% was noted with ulceration. Past this point, there was a mild 30% to 35% narrowing in the second diagonal branch. The ostium of the first septal space officer had a 70% narrowing noted. The LAD continued and had a mild 35% narrowing in its mid to distal portion, it traversed to the apical region and onto the distal inferior wall. 3. Circumflex artery. A nondominant vessel, there was calcium seen within the proximal potion with an area of luminal reduction in its worst view which appeared to be the BUCK cranial view of approximately 45%. It appeared less significant in the other views. OVERALL ASSESSMENT: Significant coronary artery disease involving the proximal LAD as well as the ostium of the right-sided posterior descending artery as described above. Moderate disease in the proximal portion of the circumflex with calcification noted. This information was shared with Dr. Browne, the patient's primary reliner in the hospital, in addition to the nurse practitioner/hospitalist Tanya Mandujano. It will be utilized in further management with consideration for aortic valve intervention and revascularization. [id number]/CPS #: [id number] MTDD
--- NOTE | 2018-02-28 12:45 | TRS ---
CC: Dr. Noa Fernandez * DATE OF ADMISSION: 02/24/2018. DATE OF TRANSFER: 02/28/2018. ACCEPTING FACILITY: [facility]. ACCEPTING PHYSICIAN: Dr. Guerrero. PRIMARY CARE PHYSICIAN: Dr. Noa Fernandez. ATTENDING PHYSICIAN: Dr. Daysi Greer * (dictated by Trip Epperson NP). PRIMARY DIAGNOSIS: Aortic stenosis. CONSULTATIONS WHILE IN THE HOSPITAL: Dr. Akbar, Dr. Browne, Dr. Rowe. PROCEDURES WHILE IN THE HOSPITAL: Stress test and cardiac catheterization. HISTORY OF PRESENT ILLNESS/HOSPITAL COURSE: Mr. Dillard is a 78-year-old male. He has a history of hypertension, diabetes, and LISSETH. He carries a history of moderate to severe aortic stenosis. He has a history of CAD, gout, and skin cancer. He was in the hospital a couple weeks ago with pneumonia. While here, he was having episodes of nonsustained V-tach. He was evaluated by Cardiology. Repeat echo was obtained. He was started on Lopressor and he had no other episodes. He was discharged. He presented to the ED due to feeling tired and fatigued. He was taking his time getting back to his normal activities. He reports that he finally felt well. Therefore, went to the local dump and was unloading some brush. He went home to lie down and fell asleep. Around 4 o'clock on 02/24/2018, he was noticing he was having a significant amount of chest pressure on the left side and was very fatigued. He said his pain symptoms just got progressively worse over the next three hours. He told his he was concerned, so they called 911 and he came to the hospital. When he was evaluated for admission, he reported the chest pain was better and it was almost gone. He was admitted to Telemetry. His blood pressure goal was 130 to 140 systolic. He was given nitro paste and a Heparin drip was started. It should also be noted that his D- dimer was mildly elevated at 293 on admission. He had cycle troponins through the evening which were all 0.03. During his ED stay, chest x-ray reported mild vascular congestion. The next morning, Dr. Patel was consulted who suggested to proceed with cardiac catheterization for further evaluation of coronary disease and progression of aortic stenosis. I would also consider carefully monitored stress test. On 02/27/2018, the patient underwent exercise stress echocardiogram which was markedly abnormal. The patient had angina, ischemic EKG changes, drop in BP, drop in LVEF, and NSVT recurrent in recovery. After the stress test, the patient was pain free and without dyspnea. Due to this markedly abnormal stress echo, it was recommended that the patient undergo cardiac catheterization diagnostically which the patient agreed to. This morning, the patient underwent cardiac catheterization with Dr. Akbar. The catheterization revealed progression of his proximal LAD occlusion from previously 60 percent to now [address] Akbar reports he believes symptoms are a combination of his significant aortic stenosis with 70 percent lesion. He was also noted to have a 45 percent proximal circumflex lesion. He was also noted to have calcium in the left main without lesion. He has significant aortic stenosis with CAD. The patient has ostium of right coronary artery PDA, a [address] Akbar is recommending transfer for evaluation for cardiothoracic surgery due to CAD and significant aortic stenosis. Dr. Akbar also noted that on previous echo, the patient was noted to have mild to moderate mitral stenosis and recommends further evaluation with MARK to evaluate the condition of the mitral valve. The patient has been accepted by [facility] by Dr. Guerrero and has a bed available. The patient will be transferred via ambulance, ALS. Normal saline 100 ml/hour will be continued for a total of five hours [address] Dr. Akbar. Nitro sublingual ordered prn for transfer. LABORATORY DATA: Sodium 133, potassium 4.3, chloride 99, carbon dioxide 31, BUN 17, creatinine 1.01, glucose 209, magnesium 1.8; WBC 4.0, hemoglobin 11.2, hematocrit 33, platelet 147. REVIEW OF SYSTEMS: A 12 point review of systems was completed and all were negative. PHYSICAL EXAMINATION: General: Mr. Dillard is a well-developed, well-nourished man who is sitting in bed in the [facility] recovery room. Vital signs: Blood pressure 171/70, O2 sat 97 percent, respiratory rate 15, heart rate 63. HEENT: Mucus membranes moist. Sclerae normal. Neck: Full range of motion. Respiratory: Symmetrical no accessory muscle use. Lungs: Sound clear to auscultation. No rhonchi, rubs, or wheezing. CV: Regular rate and rhythm. S1, S2 present. Systolic murmur heard. No rubs or gallops. No JVD. Extremities: Skin warm and smooth bilaterally. No edema. No clubbing or cyanosis. Pedal pulses positive bilaterally. Musculoskeletal: Full range of motion. No pain or deformities. Abdomen: Soft, nontender to palpation. Bowel sounds are normoactive throughout. Neuro: Awake, alert, and oriented times four. Moves all extremities well. No focal deficits appreciated. Skin: Grossly intact without lesions. Dressing to right wrist from catheter. DISCHARGE PLAN: Mr. Dillard will be transferred to [facility] to be under the care of Dr. Guerrero for evaluation of cardiothoracic surgery due to severe aortic stenosis and CAD. This is a summarized report of a complex history and hospital stay. For further details, please see the entire medical record. TIME SPENT: Approximately 60 minutes were spent on this transfer, greater than half that time was spent [id number] with the patient discussing discharge plans and instructions. TRIP EPPERSON NP [id number]/CPS #: [id number] FAVIOLA
== END 2018-02-28 13:00 | disposition short-term general hospital (02) | DRG 281 ==
LOC: ED 20:30 → MEDTELE 22:44
PROVIDERS: ADMIT Internal Medicine; ATTEND Internal Medicine
PROC: 5A09457 Assistance with Respiratory Ventilation, 24-96 Consecutive Hours, Continuous Positive Airway Pressure (ICD-10-PCS; 2018-02-25)
PROC: B211YZZ Fluoroscopy of Multiple Coronary Arteries using Other Contrast (ICD-10-PCS; principal; 2018-02-28 08:00)
DX: I35.0 Nonrheumatic aortic (valve) stenosis (principal); I21.4 Non-ST elevation (NSTEMI) myocardial infarction; I50.30 Unspecified diastolic (congestive) heart failure; E11.319 Type 2 diabetes mellitus with unspecified diabetic retinopathy without macular edema; I11.0 Hypertensive heart disease with heart failure; G47.33 Obstructive sleep apnea (adult) (pediatric); I25.10 Atherosclerotic heart disease of native coronary artery without angina pectoris; M10.9 Gout, unspecified; E66.9 Obesity, unspecified; Z85.828 Personal history of other malignant neoplasm of skin; Z79.82 Long term (current) use of aspirin; Z79.4 Long term (current) use of insulin; Z79.899 Other long term (current) drug therapy; Z88.5 Allergy status to narcotic agent; Z88.8 Allergy status to other drugs, medicaments and biological substances; Z82.49 Family history of ischemic heart disease and other diseases of the circulatory system; Z83.3 Family history of diabetes mellitus; Z68.33 Body mass index [BMI] 33.0-33.9, adult
CPT/HCPCS: 36415; 71045; 76937; 80048; 80053; 80061; 81003; 82553; 82565; 83036; 83605; 83735; 83880; 84155; 84165; 84484; 84520; 85025; 85379; 85610; 85730; 88305; 93005; 93351; 93454; 94660; 99284; A9270-GY; J0282; J0360; J1644; J2250; J2270; J2405; J3010; J3475; J3490

== ENCOUNTER 2018-03-30 20:18 | Observation (INO) | payer MEDICARE, OTHER ==
--- OUTSIDE RECORDS SUMMARY | 2018-03-30 20:37 | XMS REPORT | Continuity of Care Document ---
:1940 External Reference #:[id number] Author Name Silas Ciera Care Team Providers Name Role Phone Noa Fernandez MD Primary Care Physician Unavailable Payers Type Date Identification Numbers Payment Provider Subscriber Effective: 2003 Policy Number: [id number] Medicare Marie Sweeney PayID: [id number] [address] [place] [address] Policy Number: [id number] [facility] Marie Sweeney PayID: [id number] [address] [place] [address] Advance Directives Type Date Description Status Comment [...] Cancer Social History Type Date Description Comments Sex Unknown Marital Status Lives With 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 [employer] , copy on file at [facility] [place] Tobacco Use Start: Unknown End: Former Cigarette quit 30 years ago Unknown Smoker 1 Pack Daily Cigarette Use Pack Years - 20 ETOH Use Drinks 1 Alcoholic Beverage Per Day Tobacco Use Start: Unknown End: Patient is a former Unknown smoker Recreational Drug Use Denies Drug Use Smoking Status Reviewed: 03/20/18 Patient is a former smoker Exercise Type/Frequency Exercises regularly Allergies, Adverse Reactions, Alerts Date Description Reaction Status Severity Comments 06/06/2009 Codeine GI UPSET Active Moderate 08/11/2012 Labetalol headache, ED Active 08/11/2012 Metoprolol headaches, ED Active 02/27/2014 Metformin Nausea and Vomiting Active Severe Medications Medication Date Status Form Strength Qnty SIG Indications Ordering Provider Docusate Sodium 03/10 Active Capsules 100mg bid Noa Breonna Fernandez Senna-Lax 03/10 Active Tablets 8.6mg 120ta take 1-2 bs tablets by Cotton, mouth two M.D. times a day as needed for constipati on Onetouch Ultra 07/12 Active Strips 150un test 4 Noa Blue its times Cotton, daily or M.D. as needed - e11.79 Unilet Super-Thin 02/23 Active Misc 30G 300un Test Blood Marsha G its Sugar Four Varn, N.P. Times A Day Or as Needed BD Ultra-Fine Pen 04/16 Active 360un use 4 Noa NDL [id number] its times a Cotton, day or as M.D. needed Glucocom Blood 04/05 Active Kit W/Device 1unit for use [facility] Glucose Monitoring s once daily Cotton, System - meter M.D. per plan Dx E11.9, Z79.4 Pen [place] 07/08" 10/15 Active Misc 31G X 5 360un use 4 Noa /2016 mm its times a Cotton, day or as M.D. needed dx: e11.9 last seen 09/02/15 Lancets Ultra Thin 10/15 Active Misc Thin 30G 360un use to Marsha its check Varn, N.P. blood sugar four times a day or as needed - E11.9 - last seen 09/02/15 Levemir Flextouch 09/26 Active Solution 100Unit/M 60uni inject Pen-Injec L ts subcutaneo Jim, t usly 66 M.D. units per day or as directed by dr. lou Atorvastatin 08/17 Active Tablets 20mg 90tab take one Noa s tablet by Cotton, mouth M.D. every day Hydrochlorothiazid 08/09 Active Tablets 25mg 90tab take one Noa e s tablet by Cotton, mouth M.D. every day Doxazosin Mesylate 05/05 Active Tablets 1mg 180ta take two bs tablets by Cotton, mouth at M.D. bedtime Novolog Flexpen 10/13 Active Solution 100Unit/M 45uni Inject 14 Pen-Injec L ts Units Jim, t Three M.D. Times A Day Or as Directed Aspirin 09/28 Active Tablets 81mg 30tab 1 tablet s once daily Breonna Fernandez Centrum Silver Active Tablets 1 po qd Unknown Ultra Fish Oil Active Capsules 1000mg 1 po daily Vitamin D Active Capsules 1000Unit 30cap po qd s Vitamin B12 Active Tablets 2000mcg 90tab 1 po qd Unknown s Cialis Active 1-2 by Unknown mouth one hour prior to sexual activity every 3 days Cpap Mask And Active Device night time Unknown Cpap Active Device via nasal cannula used at night Eplerenone Active Tablets 50mg 90tab 1 by mouth Noa /0000 s every Cotton, morning M.DGracie Metoprolol Active Tablets 25mg 90tab 1 by mouth Jerman DGracie Tar s twice a Brand, day M.D. Felodipine ER Active Tablets 5mg 1 by mouth Unknown /0000 ER 24HR every day Oxycodone HCL Active Tablets 5mg 1 tabs by Unknown /0000 mouth every 4-6 hours as needed Colcrys 02/14 Hx Tablets 0.6mg 30tab patient s not taking MD Fanny - 02/14 Tramadol HCL 09/29 Hx Tablets 50mg 30tab 1-2 Jorden s tablets by MD Shira - mouth [...] Z79.4 Noa Glucosetest Strips /2015 its times Jim, - daily or M.D. 07/12 as needed /2017 dx E11.9, Z79.4. Test strips per plan Z00.00 Imodium A-D 01/18/2013 Hx Tablets 2mg 30tabs 1 tab orally 787.91 Noa - initially, Jim, 08/10/2013 followed by 1 M.D. tab after each loose stool as needed at residence discression Irbesartan 12/26/2012 Hx Tablets 300m 90tabs take one tablet Noa - g by mouth every , 03/01/2018 day M.DGracie Flovent HFA 10/10/2012 Hx Aerosol 44mc 1units 2 puffs twice 786.2 Philomena - g/Ac daily for 10 Misty, 08/07/2013 t days M.D., FACP Benzonatate 10/10/2012 Hx Capsules 200m 30caps take 1 capsule 786.2 Philomena - g by mouth three Misty, 01/18/2013 times a day M.DGracie, FACP Pen [place] Mini 09/20/2012 Hx 360unit for use qid dx Noa 31GA. - s 250.00 Jim, 10/16/2015 M.DGracie Aldactazide 05/30/2012 Hx Tablets 25-2 90tabs 1 tab PO qd Noa - 5mg [place], 08/09/2012 M.D. Avapro 05/03/2012 Hx Tablets 300m 90tabs 1 by mouth once Noa - g daily [place], 12/26/2012 M.D. Hydrochlorothiazi 05/03/2012 Hx Tablets 25mg 90tabs 1 po qd Noa de - [place], 05/30/2012 M.D. Labetalol HCL 04/07/2012 Hx Tablets 100m 180tabs 2 po bid 401.1 Noa - g [place], 05/03/2012 M.D. Metoprolol 03/21/2012 Hx Tablets ER 50mg 30tabs take 1 PO qd 401.1 Noa Succinate ER - 24HR [place], 04/07/2012 M.D. Metoprolol 02/18/2012 Hx Tablets ER 25mg 30tabs 1 po qd 401.1 Noa Succinate ER - 24HR [place], 03/21/2012 M.D. Viagra 01/13/2012 Hx Tablets 50mg 18tabs take 1 or 2 Noa - tablets once [place], 11/11/2013 daily as needed M.D. Fluticasone 04/21/2011 Hx Suspension 50mc 1bottle 1 spray each 786.2 [place] Propionate - g/Ac nostril in am Misty, 10/07/2011 t M.Clemente, FACP Azithromycin 04/21/2011 Hx Tablets 250m 6tabs two tabs day 786.2 Philomena - g one, one daily Misty, 10/05/2011 till gone M.D., FACP Felodipine ER 04/12/2011 Hx Tablets ER 10mg 90tabs take one tablet Noa - 24HR by mouth every [place], 03/10/2018 day M.D. Zithromax Z-Dani 08/19/2010 Hx Tablets 250m 1Pack two po Noa - g initially then [place], 08/29/2010 one po daily M.D. Lipitor 08/04/2010 Hx Tablets 20mg 90tabs 1 by mouth once Noa - daily [place], 08/17/2013 M.D. Cephalexin 04/02/2010 Hx Capsules 500m 28caps 1 tablet 4 682.0 Noa - g times daily for [place], 08/04/2010 7 days M.DGracie Losartan 12/16/2009 Hx Tablets 100- 90tabs take 1 tablet Noa Potassium/Hydroch - 25mg by mouth every Cotton, lorothiazide 05/03/2012 day M.DGracie Levemir 09/25/2009 Hx Solution 100U 23pens 52 units Noa - nit/ subcutaneously [place], 08/06/2010 ML at bedtime M.DGracie Diovan HCT 09/25/2009 Hx Tablets 320- 90tabs 1 tablet daily Noa - 25mg [place], 12/16/2009 M.DGracie Felodipine 09/25/2009 Hx Tablets ER 10mg 90tabs 1 tablet by Noa - 24HR mouth once [place], 04/12/2011 daily M.DGracie Lipitor 09/25/2009 Hx Tablets 10mg 90tabs 1 tablet every Noa - night [place], 08/04/2010 M.DGracie Asa 09/25/2009 Hx 81mg 30units 1 tablet daily Noa - [place], 09/28/2009 M.DGracie Econazole Nitrate 09/25/2009 Hx Cream 1% 45g apply to Noa - affected areas [place], 01/08/2010 bid x 2-3 wks M.DGracie Hydrocortisone 09/25/2009 Hx Cream 0.2% 30g topical twice Noa Valerate - daily to area [place], 01/08/2010 as needed M.DGracie Viagra 09/25/2009 Hx Tablets 50mg 18tabs Take 1 Or 2 Noa - Tablets Once [place], 04/12/2011 Daily as Needed M.D. Novolog Penfill Hx Solution 100U 2Box use as directed Qutaybvioleta - nit/ S. 03/07/2007 ML Breonna Browne Novolog Penfill Hx Solution 100U 10units Use as Directed Ladarius tinsley/ three times Clemente Garcia, 10/13/2009 ML daily M.DGracie,FACP Felodipine ER Hx Tablets ER 2.5m 30tabs 1 PO qd Ladarius JungR ginny Garcia, 09/25/2009 Breonna,FACP Metformin HCL Hx Tablets 1000 180tabs take 1 tablet Noa - mg by mouth twice [place], 08/07/2013 daily M.D. Levitra Hx Tablets Unknown - 10/07/2011 Warfarin Sodium Hx Tablets 10mg 1 po qd Unknown - 02/18/2012 Levemir Flexpen Hx Solution 100U inject 66 units Unknown - Pen-Inject nit/ under the skin 09/27/2015 ML at bedtime Eplerenone Hx Tablets 25mg 180tabs take 2 tablets Noa - by mouth every Cotton, 08/23/2016 day M.D. Cephalexin Hx Capsules 500m [facility], Gretta Yancey MD 09/23/2017 Cefpodoxime Hx Tablets 200m 1 by mouth Unknown Proxetil - g twice daily for 12/12/2017 10 days Tessalon Perles Hx Capsules 100m 1 bid as needed Unknown - g 02/12/2018 Mucinex Hx Tablets ER 600m twice a day as Unknown - 12HR g needed 12/12/2017 Hydrocodone-Aceta Hx Tablets 5-32 Unknown minophen - 5mg 12/12/2017 Medications Administered in Office Medication Date Status Form Strength Qnty SIG Indications Ordering Provider Celestone 3 mg Administered Injection Griselda and 3mg 017 SHAUN Gore-C Technetium TC Administered Injection Jerman DGracie 99M 016 Breonna Russell Tetrofosmin, Per Unit Dose Up To 40 Millicuries Depomedrol Administered Injection Griselda 40MG 016 BittingSHAUN-C Depomedrol Administered Injection Belkis 80MG 015 Breonna Thorpe Depomedrol Administered Injection Belkis 80MG 014 Breonna Thorpe Technetium TC Administered Injection Haylee Ching, 99M 014 PA Tetrofosmin, Per Unit Dose Up To 40 Millicuries Immunizations CPT Code Status Date Vaccine Lot # [id number] Given 02/02/2018 Fluzone High Dose 64438 Given 01/03/2018 Fluzone High Dose Q2039 Given 01/20/2016 Flu Vaccine NOS 26051 Given 01/27/2015 Fluzone High Dose Q2037 Given 10/09/2014 Fluvirin Im 3Yrs And Older 97860 Given 09/03/2014 Pneumococcal Conjugate Vaccine 13 Valent For [id number] Intramuscular Use 48486 Given 01/18/2013 Flu Vaccine Split Virus Preservative Free For [id number] Indiv 3Yr Older Q2038 Given 01/03/2012 Fluzone Vaccine [id number] 24515 Given 01/08/2010 Influenza Virus 3Yrs & Over 46649 Given 06/10/2009 Influenza Virus Vaccine, Pandemic Formulation 28555 Given 02/18/2009 Influenza Virus 3Yrs & Over 31995 Given 08/16/2007 Zoster (Zostavax) Vital Signs Date Vital Result Comment 03/20/2018 1:34pm Height 70 inches 5'10" Weight 234.00 lb Heart Rate 57 /min BP Systolic Sitting 110 mmHg BP Diastolic Sitting 72 mmHg O2 % BldC Oximetry 96 % BMI (Body Mass Index) 33.6 kg/m2 03/14/2018 1:21pm Height 70 inches 5'10" Weight 236.00 lb Heart Rate 72 /min BP Systolic Sitting 146 mmHg Lue BP Diastolic Sitting 60 mmHg Lue BP Systolic Standing 136 mmHg Lue BP Diastolic Standing 56 mmHg Lue Respiratory Rate 16 /min O2 % BldC Oximetry 95 % on Ra BMI (Body Mass Index) 33.9 kg/m2 Ejection Fraction 55-60% as of 02/07/18 echo 02/22/2018 10:34am Height 70 inches 5'10" Weight 239.00 lb with shoes Heart Rate 60 /min BP Systolic Sitting 118 mmHg lue reg cuff BP Diastolic Sitting 50 mmHg lue reg cuff BP Systolic Standing 124 mmHg lue reg cuff BP Diastolic Standing 54 mmHg lue reg cuff BMI (Body Mass Index) 34.3 kg/m2 Ejection Fraction 55-60% echo. 02/07/2018 02/14/2018 9:58am Height 70 inches 5'10" Weight 239.00 lb Heart Rate 54 /min BP Systolic 138 mmHg BP Diastolic 50 mmHg Body Temperature 97.6 F O2 % BldC Oximetry 95 % BMI (Body Mass Index) 34.3 kg/m2 02/06/2018 3:22pm Height 70 inches 5'10" Weight 238.00 lb Heart Rate 99 /min BP Systolic Sitting 180 mmHg HR Sounds Irregular BP Diastolic Sitting 70 mmHg HR Sounds Irregular Body Temperature 101.1 F O2 % BldC Oximetry 89 % BMI (Body Mass Index) 34.1 kg/m2 11/07/2017 1:27pm Height 70 inches 5'10" Weight 240.00 lb Heart Rate 57 /min BP Systolic Sitting 145 mmHg BP Diastolic Sitting 62 mmHg O2 % BldC Oximetry 98 % BMI (Body Mass Index) 34.4 kg/m2 10/07/2017 9:04am Height 70 inches 5'10" Weight 240.00 lb BP Systolic Sitting 168 mmHg BP Diastolic Sitting 66 mmHg Respiratory Rate 16 /min Body Temperature 98.2 F Pain Level 3 BMI (Body Mass Index) 34.4 kg/m2 09/28/2017 9:23am Height 70 inches 5'10" Weight 240.00 lb Heart Rate 60 /min BP Systolic Sitting 128 mmHg BP Diastolic Sitting 58 mmHg Respiratory Rate 14 /min Body Temperature 97.1 F BMI (Body Mass Index) 34.4 kg/m2 09/27/2017 2:33pm Height 70 inches 5'10" Weight 240.00 lb Heart Rate 72 /min BP Systolic Sitting 158 mmHg BP Diastolic Sitting 62 mmHg Body Temperature 97.2 F O2 % BldC Oximetry 93 % BMI (Body Mass Index) 34.4 kg/m2 09/12/2017 2:58pm Height 70 inches 5'10" Weight 243.00 lb Heart Rate 70 /min BP Systolic Sitting 146 mmHg BP Diastolic Sitting 64 mmHg Body Temperature 97.4 F O2 % BldC Oximetry 96 % BMI (Body Mass Index) 34.9 kg/m2 05/02/2017 2:10pm Height 70 inches 5'10" Weight 242.00 lb Heart Rate 67 /min BP Systolic 120 mmHg BP Diastolic 70 mmHg O2 % BldC Oximetry 97 % BMI (Body Mass Index) 34.7 kg/m2 02/23/2017 11:36am Height 70 inches 5'10" Weight 237.00 lb with shoes Heart Rate 58 /min BP Systolic Sitting 148 mmHg Rue lg cuff BP Diastolic Sitting 60 mmHg Rue lg cuff BP Systolic Standing 146 mmHg Rue lg cuff BP Diastolic Standing 60 mmHg Rue lg cuff Respiratory Rate 16 /min BMI (Body Mass Index) 34.0 kg/m2 Ejection Fraction 55-60% date 10/21/15 12/15/2016 3:29pm Height 70 inches 5'10" Weight 238.00 lb Heart Rate 60 /min BP Systolic Sitting 150 mmHg BP Diastolic Sitting 60 mmHg Respiratory Rate 14 /min Body Temperature 97.5 F O2 % BldC Oximetry 97 % BMI (Body Mass Index) 34.1 kg/m2 11/04/2016 2:57pm Height 70 inches 5'10" Weight 234.00 lb Heart Rate 60 /min BP Systolic Sitting 140 mmHg BP Diastolic Sitting 60 mmHg Respiratory Rate 16 /min Body Temperature 97.6 F O2 % BldC Oximetry 98 % BMI (Body Mass Index) 33.6 kg/m2 08/23/2016 1:53pm Weight 239.00 lb Heart Rate 89 /min BP Systolic Sitting 124 mmHg BP Diastolic Sitting 54 mmHg O2 % BldC Oximetry 99 % 05/05/2016 11:11am Height 70 inches 5'10" Weight 228.00 lb Pain Level 2 BMI (Body Mass Index) 32.7 kg/m2 04/21/2016 1:43pm Height 70 inches 5'10" Weight 228.00 lb per pt Heart Rate 68 /min BP Systolic Sitting 130 mmHg BP Diastolic Sitting 72 mmHg Respiratory Rate 14 /min O2 % BldC Oximetry 97 % BMI (Body Mass Index) 32.7 kg/m2 03/25/2016 10:37am Height 70.5 inches 5'10.50" Weight 238.00 lb Heart Rate 68 /min BP Systolic 122 mmHg BP Diastolic 58 mmHg Body Temperature 97.5 F O2 % BldC Oximetry 98 % BMI (Body Mass Index) 33.7 kg/m2 03/04/2016 10:08am Weight 236.00 lb Heart Rate 60 /min BP Systolic 160 mmHg BP Diastolic 70 mmHg BP Systolic Sitting 126 mmHg BP Diastolic Sitting 58 mmHg O2 % BldC Oximetry 98 % 01/30/2016 9:45am Height 70.5 inches 5'10.50" Weight 234.00 lb w/ shoes Heart Rate 54 /min BP Systolic Sitting 150 mmHg Lue, lg cuff BP Diastolic Sitting 62 mmHg Lue, lg cuff BP Systolic Standing 144 mmHg Lue BP Diastolic Standing 66 mmHg Lue Respiratory Rate 16 /min BMI (Body Mass Index) 33.1 kg/m2 Ejection Fraction 55-60% as of 10/21/15 echo 11/17/2015 8:48am Height 70.5 inches 5'10.50" Weight 235.00 lb [...] Ejection Fraction 55-60% date 10/21/15 ECHO 10/24/2015 3:38pm Weight 238.00 lb Heart Rate 60 /min BP Systolic Sitting 124 mmHg Ra lg cuff BP Diastolic Sitting 50 mmHg Ra lg cuff BP Systolic Standing 120 mmHg Ra lg cuff BP Diastolic Standing 54 mmHg Ra lg cuff 09/26/2015 9:23am Height 70 inches 5'10" Weight 238.00 lb with shoes Heart Rate 66 /min BP Systolic Sitting 152 mmHg Ra lrg cuff BP Diastolic Sitting 62 mmHg Ra lrg cuff BP Systolic Standing 148 mmHg Ra lrg cuff BP Diastolic Standing 58 mmHg Ra lrg cuff Respiratory Rate 14 /min BMI (Body Mass Index) 34.1 kg/m2 Ejection Fraction 55-60% 08/14/13 09/25/2015 3:04pm Height 70 inches 5'10" Weight 236.00 lb Heart Rate 61 /min BP Systolic 155 mmHg BP Diastolic 60 mmHg BMI (Body Mass Index) 33.9 kg/m2 09/02/2015 9:21am Height 69.75 inches 5'9.75" Weight 240.50 lb Heart Rate 58 /min BP Systolic Sitting 147 mmHg BP Diastolic Sitting 59 mmHg Body Temperature 97.1 F O2 % BldC Oximetry 97 % BMI (Body Mass Index) 34.8 kg/m2 03/03/2015 9:34am Height 70 inches 5'10" Weight 237.00 lb Heart Rate 70 /min BP Systolic Sitting 140 mmHg BP Diastolic Sitting 82 mmHg Respiratory Rate 15 /min Body Temperature 98.6 F O2 % BldC Oximetry 97 % BMI (Body Mass Index) 34.0 kg/m2 02/06/2015 3:41pm Height 70 inches 5'10" Weight 236.00 lb Pain Level 8 BMI (Body Mass Index) 33.9 kg/m2 01/09/2015 1:22pm Heart Rate 58 /min BP Systolic 134 mmHg BP Diastolic 50 mmHg Respiratory Rate 14 /min O2 % BldC Oximetry 97 % 12/13/2014 9:27am Weight 236.00 lb Heart Rate 54 /min BP Systolic Sitting 148 mmHg BP Diastolic Sitting 59 mmHg Body Temperature 95.8 F 10/11/2014 2:05pm Height 70 inches 5'10" Weight 233.50 lb w/o shoes Heart Rate 78 /min reg BP Systolic Sitting 134 mmHg Rue, reg cuff BP Diastolic Sitting 68 mmHg Rue, reg cuff BP Systolic Standing 140 mmHg Rue BP Diastolic Standing 72 mmHg Rue Respiratory Rate 18 /min BMI (Body Mass Index) 33.5 kg/m2 Ejection Fraction 55-60% as of 08/14/13 echo 10/09/2014 3:36pm Height 70 inches 5'10" Weight 234.25 lb Heart Rate 74 /min BP Systolic Sitting 140 mmHg BP Diastolic Sitting 72 mmHg Respiratory Rate 18 /min Body Temperature 98.5 F O2 % BldC Oximetry 98 % BMI (Body Mass Index) 33.6 kg/m2 Neck Circumference in inches 18.5 10/09/2014 2:02pm Height 70.5 inches 5'10.50" Weight 232.00 lb Heart Rate 60 /min BP Systolic 130 mmHg BP Diastolic 58 mmHg Body Temperature 98.2 F BMI (Body Mass Index) 32.8 kg/m2 08/22/2014 3:54pm Height 70.5 inches 5'10.50" Weight 234.50 lb Heart Rate 62 /min BP Systolic Sitting 130 mmHg BP Diastolic Sitting 60 mmHg BMI (Body Mass Index) 33.2 kg/m2 08/07/2014 3:12pm Height 71 inches 5'11" Weight 234.12 lb Heart Rate 74 /min BP Systolic Sitting 136 mmHg BP Diastolic Sitting 60 mmHg O2 % BldC Oximetry 97 % BMI (Body Mass Index) 32.7 kg/m2 02/27/2014 10:42am Height 71 inches 5'11" Weight 233.00 lb Heart Rate 60 /min BP Systolic Sitting 140 mmHg BP Diastolic Sitting 60 mmHg Body Temperature 98.0 F BMI (Body Mass Index) 32.5 kg/m2 01/17/2014 1:19pm Height 71 inches 5'11" Weight 227.00 lb Heart Rate 61 /min BP Systolic 136 mmHg BP Diastolic 77 mmHg BMI (Body Mass Index) 31.7 kg/m2 09/06/2013 9:39am Height 70.25 inches 5'10.25" Weight 233.00 lb Heart Rate 68 /min BP Systolic Sitting 132 mmHg Ra large cuff BP Diastolic Sitting 64 mmHg Ra large cuff BP Systolic Standing 132 mmHg Ra BP Diastolic Standing 64 mmHg Ra Respiratory Rate 16 /min BMI (Body Mass Index) 33.2 kg/m2 08/17/2013 3:42pm Height 70.25 inches 5'10.25" Weight 232.25 lb Heart Rate 64 /min BP Systolic 142 mmHg BP Diastolic 60 mmHg Respiratory Rate 16 /min Body Temperature 97.5 F BMI (Body Mass Index) 33.1 kg/m2 08/10/2013 1:36pm Height 71 inches 5'11" Weight 233.00 lb Heart Rate 84 /min BP Systolic Sitting 130 mmHg LA LG cuff BP Diastolic Sitting 62 mmHg LA LG cuff BP Systolic Standing 130 mmHg BP Diastolic Standing 60 mmHg Respiratory Rate 16 /min BMI (Body Mass Index) 32.5 kg/m2 01/18/2013 8:27am Weight 229.00 lb Heart Rate 70 /min BP Systolic Sitting 122 mmHg BP Diastolic Sitting 64 mmHg Body Temperature 6.8 F 10/10/2012 10:58am Weight 227.00 lb Heart Rate 64 /min BP Systolic Sitting 124 mmHg BP Diastolic Sitting 78 mmHg Body Temperature 96.3 F O2 % BldC Oximetry 97 % 08/11/2012 12:54pm Weight 231.00 lb Heart Rate 70 /min BP Systolic Sitting 134 mmHg BP Diastolic Sitting 80 mmHg 05/02/2012 2:57pm Height 70 inches 5'10" Weight 232.00 lb Heart Rate 72 /min BP Systolic Sitting 162 mmHg home machine said 170/81 BP Diastolic Sitting 70 mmHg home machine said 170/81 BMI (Body Mass Index) 33.3 kg/m2 04/07/2012 9:34am Height 70 inches 5'10" Weight 231.50 lb Heart Rate 56 /min BP Systolic Sitting 138 mmHg BP Diastolic Sitting 60 mmHg BMI (Body Mass Index) 33.2 kg/m2 03/21/2012 9:12am Height 70 inches 5'10" Weight 230.00 lb Heart Rate 72 /min BP Systolic Sitting 132 mmHg BP Diastolic Sitting 80 mmHg BMI (Body Mass Index) 33.0 kg/m2 02/28/2012 2:14pm Height 70 inches 5'10" Weight 230.00 lb Heart Rate 68 /min BP Systolic Sitting 150 mmHg BP Diastolic Sitting 62 mmHg Body Temperature 97.8 F BMI (Body Mass Index) 33.0 kg/m2 02/18/2012 12:56pm Height 70 inches 5'10" Weight 227.00 lb Heart Rate 72 /min BP Systolic Sitting 134 mmHg BP Diastolic Sitting 80 mmHg BMI (Body Mass Index) 32.6 kg/m2 01/03/2012 2:33pm Height 70 inches 5'10" Heart Rate 64 /min BP Systolic Sitting 138 mmHg BP Diastolic Sitting 54 mmHg 11/18/2011 2:31pm Height 70 inches 5'10" Weight 228.00 lb Heart Rate 74 /min BP Systolic Sitting 130 mmHg 148/60 pt machine BP Diastolic Sitting 60 mmHg 148/60 pt machine BMI (Body Mass Index) 32.7 kg/m2 10/07/2011 11:17am Height 70 inches 5'10" Weight 225.00 lb Heart Rate 72 /min BP Systolic Sitting 128 mmHg BP Diastolic Sitting 76 mmHg BMI (Body Mass Index) 32.3 kg/m2 04/21/2011 1:01pm Height 70 inches 5'10" Weight 231.00 lb Heart Rate 72 /min BP Systolic Sitting 116 mmHg BP Diastolic Sitting 68 mmHg Body Temperature 98.5 F BMI (Body Mass Index) 33.1 kg/m2 04/12/2011 1:59pm Height 70 inches 5'10" Weight 228.75 lb Heart Rate 72 /min BP Systolic Sitting 138 mmHg L BP Diastolic Sitting 74 mmHg L BMI (Body Mass Index) 32.8 kg/m2 08/19/2010 2:45pm Weight 229.00 lb Heart Rate 78 /min BP Systolic Sitting 150 mmHg BP Diastolic Sitting 70 mmHg Body Temperature 98.7 F 08/04/2010 11:35am Weight 229.00 lb Heart Rate 60 /min BP Systolic Sitting 128 mmHg BP Diastolic Sitting 70 mmHg 04/02/2010 10:16am Weight 231.75 lb Heart Rate 78 /min BP Systolic 142 mmHg BP Diastolic 70 mmHg 01/08/2010 9:17am Weight 229.00 lb Heart Rate 60 /min BP Systolic 122 mmHg BP Diastolic 68 mmHg 09/29/2009 8:24pm Height 70 inches 5'10" Weight 224.75 lb Heart Rate 78 /min BP Systolic 138 mmHg BP Diastolic 60 mmHg BMI (Body Mass Index) 32.2 kg/m2 Results Test Date Facility Test Result H/L Range Note Laboratory test N2N/CCD Import Hemoglobin A1c 6.9 % High 4.0 - 6.0 finding 8 Inr/Protime [facility] Inr 0.91 N 0.77-1.[address] [place] [address] [phone] Laboratory test [facility] Partial Thrombo 30.2 seconds N 26.0-36.3 finding [address] [place] [address] [phone] D Dimer Quantitative 293 ng/mL High Less Than 230 1 Lactic Acid 1.9 mmol/L N 0.5-2.0 2 CBC Auto Diff 02/24/2018 [facility] White Blood 6.6 10^3/uL N 3.5-10.[address] [place] [address] [phone] Red Blood Count 3.50 10^6/uL Low 4.00-5.40 Hemoglobin 11.2 g/dL Low 14.0-18.0 Hematocrit 33 % Low 42-52 Mean Corpuscular Volume 93 fL N 80-94 Mean Corpuscular Hemoglobin 32 pg High 27-31 Mean Corpuscular HGB Conc 35 g/dL N 31-36 Red Cell Distribution Width 14 % N 10.5-15 Platelet Count 177 10^3/uL N 150-450 Mean Platelet Volume 8.8 fL N 7.4-10.4 Abs Neutrophils 4.5 10^3/uL N 1.5-7.7 Abs Lymphocytes 1.1 10^3/uL N 1.0-4.8 Abs Monocytes 0.8 10^3/uL N 0-0.8 Abs Eosinophils 0.1 10^3/uL N 0-0.6 Abs Basophils 0.1 10^3/uL N 0-0.2 Abs Nucleated RBC 0 10^3/uL Granulocyte % 67.6 % N 38-83 Lymphocyte % 17.1 % Low 25-47 Monocyte % 12.8 % High 0-7 Eosinophil % 1.3 % N 0-6 Basophil % 1.2 % N 0-2 Nucleated Red Blood Cells % 0 Comp Metabolic Panel 02/24/2018 [facility] Sodium 132 mmol/L Low 135-[address] [place] [address] [phone] Potassium 3.6 mmol/L N 3.5-5.0 Chloride 100 mmol/L Low 101-111 Co2 Carbon Dioxide 23 mmol/L N 22-32 Anion Gap 9 mmol/L N 2-11 Glucose 107 mg/dL High 70-100 Blood Urea Nitrogen 19 mg/dL N 6-24 Creatinine 0.97 mg/dL N 0.67-1.17 BUN/Creatinine Ratio 19.6 N 8-20 Calcium 8.6 mg/dL N 8.6-10.3 Total Protein 5.7 g/dL Low 6.4-8.9 Albumin 3.3 g/dL N 3.2-5.2 Globulin 2.4 g/dL N 2-4 Albumin/Globulin Ratio 1.4 N 1-3 Total Bilirubin 1.00 mg/dL N 0.2-1.0 Alkaline Phosphatase 72 U/L N 34-104 Alt 19 U/L N 7-52 Ast 17 U/L N 13-39 Egfr Non- 74.7 >60 Egfr 90.3 >60 3 Laboratory test 02/24/2018 [facility] Magnesium 1.5 mg/dL Low 1.9-2.[address] [place] [address] [phone] Troponin-I (TnI) 0.03 ng/mL <0.04 CKMB 02/24/2018 [facility] CKMB ng/mL 2.3 ng/mL N 0.6-6.[address] [place] [address] [phone] Laboratory 02/24/2018 [facility] B-Type 118 pg/mL High <=100 test finding [address] [place] [address] Peptide BNP [phone] Laboratory 02/22/2018 [facility] Surgical SEE 4, 5 test finding [address] [place] [address] BELOW [phone] Sputum Culture 02/06/2018 [facility] Sputum Culture SEE 6 & Sensitiv [address] [place] [address] BELOW [phone] CBC Auto Diff 02/06/2018 [facility] White Blood 11.7 High 3.5- 10.[address] Count 10^3/uL [place], [place] [id number] [phone] Red Blood Count 4.11 10^6/uL N 4.00-5.40 Hemoglobin 13.2 g/dL Low 14.0-18.0 Hematocrit 39 % Low 42-52 Mean Corpuscular Volume 94 fL N 80-94 Mean Corpuscular Hemoglobin 32 pg High 27-31 Mean Corpuscular HGB Conc 34 g/dL N 31-36 Red Cell Distribution Width 14 % N 10.5-15 Platelet Count 170 10^3/uL N 150-450 Mean Platelet Volume 9.8 um3 N 7.4-10.4 Abs Neutrophils 10.1 10^3/uL High 1.5-7.7 Abs Lymphocytes 0.5 10^3/uL Low 1.0-4.8 Abs Monocytes 1.0 10^3/uL High 0-0.8 Abs Eosinophils 0 10^3/uL N 0-0.6 Abs Basophils 0 10^3/uL N 0-0.2 Abs Nucleated RBC 0 10^3/uL Granulocyte % 86.6 % High 38-83 Lymphocyte % 4.2 % Low 25-47 Monocyte % 9.0 % High 0-7 Eosinophil % 0 % N 0-6 Basophil % 0.2 % N 0-2 Nucleated Red Blood Cells % 0 Laboratory test 02/06/2018 [facility] Lactic Acid 0.9 mmol/L N 0.5-2.0 7 finding [address] [place] [address] [phone] C Reactive Protein 139.24 mg/L High <8.01 Troponin-I (TnI) 0.06 ng/mL High <0.04 8 Comp Metabolic Panel 02/06/2018 [facility] Sodium 129 mmol/L Low 135-145 [address] [place] [address] [phone] Potassium 3.9 mmol/L N 3.5-5.0 Chloride 94 mmol/L Low 101-111 Co2 Carbon Dioxide 25 mmol/L N 22-32 Anion Gap 10 mmol/L N 2-11 Glucose 116 mg/dL High 70-100 Blood Urea Nitrogen 22 mg/dL N 6-24 Creatinine 1.12 mg/dL N 0.67-1.17 BUN/Creatinine Ratio 19.6 N 8-20 Calcium 8.9 mg/dL N 8.6-10.3 Total Protein 6.8 g/dL N 6.4-8.9 Albumin 4.0 g/dL N 3.2-5.2 Globulin 2.8 g/dL N 2-4 Albumin/Globulin Ratio 1.4 N 1-3 Total Bilirubin 2.20 mg/dL High 0.2-1.0 Alkaline Phosphatase 78 U/L N 34-104 Alt 15 U/L N 7-52 Ast 22 U/L N 13-39 Egfr Non- 63.2 >60 Egfr 76.5 >60 9 Laboratory test 02/06/2018 [facility] Procalcitonin 0.8 ng/mL High <0.6 [address] [place] [address] [phone] Blood Culture SEE RESULT BELOW 11 Rapid Influenza 02/05/2018 [facility] Influenza A NEGATIVE Negative 12 A & B Molecular [address] [place] [address] [phone] Influenza B Molecular NEGATIVE Negative Laboratory 02/05/2018 [facility] Rapid SEE RESULT 13 test finding [address] [place] [address] Antigen [phone] Laboratory 02/05/2018 [facility] Rapid Strep Negative Negative 14 test finding [address] [place] [address] [phone] Laboratory 02/05/2018 [facility] Rapid Strep A SEE RESULT 15 test finding [address] [place] [address] [phone] Laboratory 01/05/2018 [facility] Surgical SEE RESULT 16, 17 test finding [address] [place] [address] [phone] Laboratory 09/29/2017 [facility] Surgical SEE RESULT 18, 19 test finding [address] [place] [address] [phone] Wound 09/29/2017 [facility] Wound/Misc SEE RESULT 20 Culture/Sensi [address] [place] [address] Stain [phone] Laboratory 09/29/2017 [facility] Anaerobic SEE RESULT 21 test finding [address] [place] [address] [phone] CBC Auto Diff 09/23/2017 [facility] White Blood 4.8 10^3/uL N 3.5-10.[address] Count [place], [place] [id number] [phone] Red Blood Count 4.03 10^6/uL N 4.0-5.4 Hemoglobin 12.7 g/dL Low 14.0-18.0 Hematocrit 38 % Low 42-52 Mean Corpuscular Volume 94 fL N 80-94 Mean Corpuscular Hemoglobin 32 pg High 27-31 Mean Corpuscular HGB Conc 33 g/dL N 31-36 Red Cell Distribution Width 13 % N 10.5-15 Platelet Count 207 10^3/uL N 150-450 Mean Platelet Volume 8.9 um3 N 7.4-10.4 Abs Neutrophils 3.2 10^3/uL N 1.5-7.7 Abs Lymphocytes 0.8 10^3/uL Low 1.0-4.8 Abs Monocytes 0.6 10^3/uL N 0-0.8 Abs Eosinophils 0.1 10^3/uL N 0-0.6 Abs Basophils 0.1 10^3/uL N 0-0.2 Abs Nucleated RBC 0 10^3/uL Granulocyte % 66.7 % N 38-83 Lymphocyte % 17.4 % Low 25-47 Monocyte % 12.5 % High 0-7 Eosinophil % 2.0 % N 0-6 Basophil % 1.4 % N 0-2 Nucleated Red Blood Cells % 0 Laboratory test 09/23/2017 [facility] C Reactive 1.50 mg/L N < 5.00 22 finding [address] [email or web address] [address] [phone] Erythrocyte Sed Rate 14 mm/Hr N 0-40 Laboratory test 09/12/2017 [facility] Uric Acid 6.8 mg/dL N 4.4-7.6 finding [address] [email or web address] [address] [phone] C Reactive Protein 54.95 mg/L High < 5.00 23 Erythrocyte Sed Rate 23 mm/Hr N 0-40 Lyme Disease Serology Positive Negative 24 Rheumatoid Factor < 10 IU/mL N <15 Lyme Western 09/12/2017 [facility] Lyme Disease Negative Negative Blot [email or web address] [address] [phone] Lyme Disease IgG Bands Present p93,p39 kDa Lyme Disease IgM Ab WB Negative Negative Lyme Disease IgM Bands Present p23 kDa Lyme Disease Interpretation See Comment 25 Laboratory test 09/12/2017 [facility] Hemoglobin A1c 7.9 High 5-7 finding Lipid Profile 09/01/2017 [facility] Triglycerides 102 mg/dL 26 (Trig/Chol/HDL) [address] [place] [address] [phone] Cholesterol 133 mg/dL 27 HDL Cholesterol 54.7 mg/dL 28 LDL Cholesterol 58 mg/dL 29 Comp Metabolic Panel 09/01/2017 [facility] Sodium 138 mmol/L Low 139-[address] [place] [address] [phone] Potassium 4.2 mmol/L N 3.5-5.0 Chloride 102 mmol/L N 101-111 Co2 Carbon Dioxide 30 mmol/L N 22-32 Anion Gap 6 mmol/L N 2-11 Glucose 127 mg/dL High 70-100 Blood Urea Nitrogen 23 mg/dL N 6-24 Creatinine 1.09 mg/dL N 0.67-1.17 BUN/Creatinine Ratio 21.1 High 8-20 Calcium 9.5 mg/dL N 8.6-10.3 Total Protein 6.5 g/dL N 6.4-8.9 Albumin 4.0 g/dL N 3.2-5.2 Globulin 2.5 g/dL N 2-4 Albumin/Globulin Ratio 1.6 N 1-3 Total Bilirubin 1.60 mg/dL High 0.2-1.0 Alkaline Phosphatase 84 U/L N 34-104 Alt 19 U/L N 7-52 Ast 19 U/L N 13-39 Egfr Non- 65.4 >60 Egfr 84.1 >60 30 Urine Microalbumin 09/01/2017 [facility] Ur Microalbumin 187.4 mg/L Random [address] (mg/L) [place] [address] [phone] Urine Creatinine 126.02 mg/dL Urine Microalbumin/Creatinine 148.7 ug/mg High <31 Liver Function 09/01/2017 [facility] Direct 0.30 mg/dL High 0.03-0.[address] [place] [address] [phone] Indirect Bilirubin 1.3 mg/dL High 0.3-1.0 Laboratory test 09/01/2017 [facility] Vitamin B12 554 pg/mL N 180-914 [address] [place] [address] [phone] Laboratory test 09/01/2017 [facility] PSA Diagnostic 0.596 0- 4.0 [address] ng/[place] [address] [phone] Laboratory test 12/15/2016 [facility] D Dimer < 200 N Less Than [address] Quantitative ng/mL 230 [place] [address] [phone] Basic Metabolic 12/15/2016 [facility] Sodium 135 N 133-[address] mmol/[place] [address] [phone] Potassium 4.3 mmol/L N 3.5-5.0 Chloride 100 mmol/L Low 101-111 Co2 Carbon Dioxide 31 mmol/L N 22-32 Anion Gap 4 mmol/L N 2-11 Glucose 140 mg/dL High 70-100 Blood Urea Nitrogen 26 mg/dL High 6-24 Creatinine 1.06 mg/dL N 0.67-1.17 BUN/Creatinine Ratio 24.5 High 8-20 Calcium 9.4 mg/dL N 8.6-10.3 Egfr Non- 67.7 N >60 Egfr 87.1 N >60 34 Lipid Profile 09/16/2016 [facility] Triglycerides 62 mg/dL N 35 (Trig/Chol/HDL) [address] [place] [address] [phone] Cholesterol 116 mg/dL N 36 HDL Cholesterol 51.2 mg/dL N 37 LDL Cholesterol 52 mg/dL N 38 Comp Metabolic Panel 09/16/2016 [facility] Sodium 136 mmol/L N 133-[address] [place] [address] [phone] Potassium 4.2 mmol/L N 3.5-5.0 Chloride 101 mmol/L N 101-111 Co2 Carbon Dioxide 28 mmol/L N 22-32 Anion Gap 7 mmol/L N 2-11 Glucose 80 mg/dL N 70-100 Blood Urea Nitrogen 23 mg/dL N 6-24 Creatinine 1.09 mg/dL N 0.67-1.17 BUN/Creatinine Ratio 21.1 High 8-20 Calcium 9.3 mg/dL N 8.6-10.3 Total Protein 6.5 g/dL N 6.4-8.9 Albumin 3.9 g/dL N 3.2-5.2 Globulin 2.6 g/dL N 2-4 Albumin/Globulin Ratio 1.5 N 1-3 Total Bilirubin 1.40 mg/dL High 0.2-1.0 Alkaline Phosphatase 78 U/L N 34-104 Alt 16 U/L N 7-52 Ast 18 U/L N 13-39 Egfr Non- 65.6 N >60 Egfr 84.4 N >60 39 Urine Microalbumin 08/23/2016 [facility] Urine Creatinine 96.55 mg/dL N Random [address] [place] [address] [phone] Ur Microalbumin (mg/L) 52.6 mg/L N Urine Microalbumin/Creatinine 54.4 ug/mg High <31 Basic Metabolic 03/16/2016 [facility] Sodium 132 mmol/L Low 133-[address] [place] [address] [phone] Potassium 4.8 mmol/L N 3.5-5.0 Chloride 98 mmol/L Low 101-111 Co2 Carbon Dioxide 30 mmol/L N 22-32 Anion Gap 4 mmol/L N 2-11 Glucose 146 mg/dL High 70-100 Blood Urea Nitrogen 21 mg/dL N 6-24 Creatinine 1.00 mg/dL N 0.67-1.17 BUN/Creatinine Ratio 21.0 High 8-20 Calcium 9.3 mg/dL N 8.6-10.3 Egfr Non- 72.5 N >60 Egfr 93.2 N >60 40 CBC Auto Diff 01/15/2016 [facility] White Blood 8.0 10^3/uL N 3.5-10.[address] [place] [address] [phone] Red Blood Count 4.19 10^6/uL N 4.0-5.4 Hemoglobin 13.1 g/dL Low 14.0-18.0 Hematocrit 39 % Low 42-52 Mean Corpuscular Volume 92 fL N 80-94 Mean Corpuscular Hemoglobin 31 pg N 27-31 Mean Corpuscular HGB Conc 34 g/dL N 31-36 Red Cell Distribution Width 14 % N 10.5-15 Platelet Count 177 10^3/uL N 150-450 Mean Platelet Volume 10 um3 N 7.4-10.4 Abs Neutrophils 5.9 10^3/uL N 1.5-7.7 Abs Lymphocytes 1.1 10^3/uL N 1.0-4.8 Abs Monocytes 0.8 10^3/uL N 0-0.8 Abs Eosinophils 0.1 10^3/uL N 0-0.6 Abs Basophils 0.1 10^3/uL N 0-0.2 Abs Nucleated RBC 0.01 10^3/uL N Granulocyte % 73.3 % N 38-83 Lymphocyte % 13.5 % Low 25-47 Monocyte % 10.6 % High 1-9 Eosinophil % 1.6 % N 0-6 Basophil % 1.0 % N 0-2 Nucleated Red Blood Cells % 0.1 N Comp Metabolic Panel 01/15/2016 [facility] Sodium 134 mmol/L N 133-145 [address] [place] [address] [phone] Potassium 4.2 mmol/L N 3.5-5.0 Chloride 96 mmol/L Low 101-111 Co2 Carbon Dioxide 30 mmol/L N 22-32 Anion Gap 8 mmol/L N 2-11 Glucose 181 mg/dL High 70-100 Blood Urea Nitrogen 16 mg/dL N 6-24 Creatinine 1.05 mg/dL N 0.67-1.17 BUN/Creatinine Ratio 15.2 N 8-20 Calcium 9.4 mg/dL N 8.6-10.3 Total Protein 6.5 g/dL N 6.4-8.9 Albumin 4.1 g/dL N 3.2-5.2 Globulin 2.4 g/dL N 2-4 Albumin/Globulin Ratio 1.7 N 1-3 Total Bilirubin 1.90 mg/dL High 0.2-1.0 Alkaline Phosphatase 91 U/L N 34-104 Alt 20 U/L N 7-52 Ast 22 U/L N 13-39 Egfr Non- 68.5 N >60 Egfr 88.1 N >60 41 Laboratory test 01/15/2016 [facility] Uric Acid 6.5 mg/dL N 4.4-7.6 finding [address] [place] [address] [phone] Arterial Blood 11/10/2015 [facility] PH Arterial 7.41 N 7.35- 7.45 42 Gas [address] [place] [address] [phone] Pco2 Arterial 43 mmHg N 35-45 Po2 Arterial 79 mmHg Low 80-100 O2 Saturation Arterial 97.6 % N 95-98 Base Excess Arterial 2.3 High -2.0-2.0 43 Hco3 Arterial 26.7 mmol/L N 19-31 Arterial Blood Gas 11/10/2015 [facility] PH Arterial 7.38 N 7.35-7.45 [address] [place] [address] [phone] Pco2 Arterial 50 mmHg High 35-45 O2 Saturation Arterial 76.7 % Low 95-98 Base Excess Arterial 3.6 High -2.0-2.0 44 Hco3 Arterial 27.2 mmol/L N 19- Po2 Arterial 43 mmHg Low 80-100 Venous Blood Gas 11/10/2015 [facility] Venous Blood pH 7.38 N 7.33-7.43 [address] [place] [address] [phone] Venous Pco2 50 mmHg N 41-51 Venous Po2 43 mmHg N 35-45 Venous O2 Saturation 76.7 % N 70-80 Venous Blood Base Excess 3.6 N 0-4 45 Venous Bicarbonate Hco3 27.2 mmol/L N 24-28 Venous Blood Gas 11/10/2015 [facility] Venous Blood pH 7.37 N 7.33-7.43 [facility] [place] [address] [phone] Venous Pco2 48 mmHg N 41-51 Venous Po2 41 mmHg N 35-45 Venous O2 Saturation 77.2 % N 70-80 Venous Blood Base Excess 1.8 N 0-4 46 Venous Bicarbonate Hco3 25.8 mmol/L N 24-28 Protein 10/30/2015 [facility] Total 6.2 Abnormal 6.3 - Electrophoresis [facility] Protein(Pep) g/dL 7.9 [place] [address] [phone] Albumin 3.3 g/dL Abnormal 3.4-4.7 Alpha-1 Globulin 0.2 g/dL N 0.1-0.3 Alpha-2 Globulin 0.8 g/dL N 0.6-1.0 Beta Globulin 0.8 g/dL N 0.7-1.2 Gamma Globulin 1.0 g/dL N 0.6-1.6 Albumin/Globulin Ratio 1.15 N Impression See Comment N 47 Iron & Iron Binding 10/30/2015 [facility] Iron 87 g/dL N 50- 212 Capacity [address] [place] [address] [phone] Unsaturated Iron Binding 262 g/dL N Total Iron Binding Capacity 349 g/dL N 250-450 % Iron Saturation 25 % N 15-55 Basic Metabolic Panel 10/30/2015 [facility] Sodium 133 mmol/L N 133-[address] [place] [address] [phone] Potassium 4.4 mmol/L N 3.5-5.0 Chloride 99 mmol/L Low 101-111 Co2 Carbon Dioxide 29 mmol/L N 22-32 Anion Gap 5 mmol/L N 2-11 Glucose 111 mg/dL High 70-100 Blood Urea Nitrogen 20 mg/dL N 6-24 Creatinine 1.05 mg/dL N 0.67-1.17 BUN/Creatinine Ratio 19.0 N 8-20 Calcium 9.2 mg/dL N 8.6-10.3 Egfr Non- 68.7 N >60 Egfr 88.3 N >60 48 Inr/Protime 10/30/2015 [facility] Inr 0.95 N 0.89-1.[address] [place] [address] [phone] CBC Auto Diff 10/30/2015 [facility] White Blood 3.5 10^3/uL N 3.5-10.[address] [place] [address] [phone] Red Blood Count 4.06 10^6/uL N 4.0-5.4 Hemoglobin 12.5 g/dL Low 14.0-18.0 Hematocrit 38 % Low 42-52 Mean Corpuscular Volume 93 fL N 80-94 Mean Corpuscular Hemoglobin 31 pg N 27-31 Mean Corpuscular HGB Conc 33 g/dL N 31-36 Red Cell Distribution Width 14 % N 10.5-15 Platelet Count 177 10^3/uL N 150-450 Mean Platelet Volume 9 um3 N 7.4-10.4 Abs Neutrophils 2.3 10^3/uL N 1.5-7.7 Abs Lymphocytes 0.6 10^3/uL Low 1.0-4.8 Abs Monocytes 0.5 10^3/uL N 0-0.8 Abs Eosinophils 0.1 10^3/uL N 0-0.6 Abs Basophils 0 10^3/uL N 0-0.2 Abs Nucleated RBC 0 10^3/uL N Granulocyte % 65.3 % N 38-83 Lymphocyte % 17.6 % Low 25-47 Monocyte % 13.6 % High 1-9 Eosinophil % 2.4 % N 0-6 Basophil % 1.1 % N 0-2 Nucleated Red Blood Cells % 0 N Pre Cath 10/30/2015 [facility] Partial Thrombo 30.8 N 26.0- 36.[address] [place] [address] [phone] Order 10/23/2015 [facility] Stress Test, <pending> Exercise Nuclear Lipid 08/26/2015 [facility] Triglycerides 100 mg/dL N [address] (Trig/Chol/[place] [address] DL) [phone] Cholesterol 126 mg/dL N 50 HDL Cholesterol 51.1 mg/dL N 51 LDL Cholesterol 55 mg/dL N 52 Comp Metabolic Panel 08/26/2015 [facility] Sodium 135 mmol/L N 133-[address] [place] [address] [phone] Potassium 4.1 mmol/L N 3.5-5.0 Chloride 100 mmol/L Low 101-111 Co2 Carbon Dioxide 29 mmol/L N 22-32 Anion Gap 6 mmol/L N 2-11 Glucose 110 mg/dL High 70-100 Blood Urea Nitrogen 17 mg/dL N 6-24 Creatinine 1.04 mg/dL N 0.67-1.17 BUN/Creatinine Ratio 16.3 N 8-20 Calcium 9.3 mg/dL N 8.6-10.3 Total Protein 6.5 g/dL N 6.4-8.9 Albumin 4.0 g/dL N 3.2-5.2 Globulin 2.5 g/dL N 2-4 Albumin/Globulin Ratio 1.6 N 1-3 Total Bilirubin 1.40 mg/dL High 0.2-1.0 Alkaline Phosphatase 78 U/L N 34-104 Alt 16 U/L N 7-52 Ast 17 U/L N 13-39 Egfr Non- 69.4 N >60 Egfr 89.3 N >60 53 Urine Microalbumin 08/26/2015 [facility] Ur Microalbumin 89.0 mg /L N Random [address] (mg/L) [place] [address] [phone] Urine Creatinine 151.94 mg/dL N Urine Microalbumin/Creatinine 58.5 ug/mg High <31 Laboratory test 08/26/2015 [facility] TSH (Thyroid 1.79 ?IU/mL N 0.34-5.60 [address] Stim [place]) [place] [address] [phone] CBC No Diff 08/26/2015 [facility] White Blood 5.2 10^3/uL N 3.5-10.[address] [place] [address] [phone] Red Blood Count 4.03 10^6/uL N 4.0-5.4 Hemoglobin 12.7 g/dL Low 14.0-18.0 Hematocrit 38 % Low 42-52 Mean Corpuscular Volume 94 fL N 80-94 Mean Corpuscular Hemoglobin 32 pg High 27-31 Mean Corpuscular HGB Conc 34 g/dL N 31-36 Red Cell Distribution Width 14 % N 10.5-15 Platelet Count 182 10^3/uL N 150-450 Mean Platelet Volume 9 um3 N 7.4-10.4 Laboratory test 08/26/2015 [facility] Vitamin B12 344 pg/mL N 180-914 [address] [place] [address] [phone] CBC Auto Diff 03/06/2015 [facility] White Blood 4.9 10^3/uL N 4.8-10.[address] [place] [address] [phone] Red Blood Count 4.30 10^6/uL N 4.0-5.4 Hemoglobin 13.8 g/dL Low 14.0-18.0 Hematocrit 41 % Low 42-52 Mean Corpuscular Volume 95 fL High 80-94 Mean Corpuscular Hemoglobin 32 pg High 27-31 Mean Corpuscular HGB Conc 34 g/dL N 31-36 Red Cell Distribution Width 14 % N 10.5-15 Platelet Count 189 10^3/uL N 150-450 Mean Platelet Volume 8 um3 N 7.4-10.4 Abs Neutrophils 3.2 10^3/uL N 1.5-7.7 Abs Lymphocytes 0.9 10^3/uL Low 1.0-4.8 Abs Monocytes 0.6 10^3/uL N 0-0.8 Abs Eosinophils 0.1 10^3/uL N 0-0.6 Abs Basophils 0 10^3/uL N 0-0.2 Abs Nucleated RBC 0 10^3/uL N Granulocyte % 65.4 % N 38-83 Lymphocyte % 18.3 % Low 25-47 Monocyte % 12.5 % High 1-9 Eosinophil % 2.8 % N 0-6 Basophil % 1.0 % N 0-2 Nucleated Red Blood Cells % 0.1 N Comp Metabolic Panel 03/06/2015 [facility] Sodium 135 mmol/L N 133-[address] [place] [address] [phone] Potassium 4.3 mmol/L N 3.5-5.0 Chloride 99 mmol/L Low 101-111 Co2 Carbon Dioxide 31 mmol/L N 22-32 Anion Gap 5 mmol/L N 2-11 Glucose 72 mg/dL N 70-100 Blood Urea Nitrogen 15 mg/dL N 6-24 Creatinine 1.03 mg/dL N 0.67-1.17 BUN/Creatinine Ratio 14.6 N 8-20 Calcium 9.4 mg/dL N 8.6-10.3 Total Protein 6.3 g/dL Low 6.4-8.9 Albumin 4.1 g/dL N 3.2-5.2 Globulin 2.2 g/dL N 2-4 Albumin/Globulin Ratio 1.9 N 1-3 Total Bilirubin 1.40 mg/dL High 0.2-1.0 Alkaline Phosphatase 82 U/L N 34-104 Alt 17 U/L N 7-52 Ast 14 U/L N 13-39 Egfr Non- 70.2 N >60 Egfr 90.3 N >60 57 Laboratory test 12/17/2014 [facility] PSA Diagnostic 0.588 N 0 -4.0 [address] ng/[place] [address] [phone] Lipid Profile 12/17/2014 [facility] Triglycerides 83 mg/dL N 59, 60 (Trig/Chol/HDL) [address] [place] [address] [phone] Cholesterol 120 mg/dL N 61 HDL Cholesterol 49.3 mg/dL N 62 LDL Cholesterol 54 mg/dL N 63 Laboratory test 12/17/2014 [facility] Lipase 22 U/L N 11.0- 82.0 [address] [place] [address] [phone] Comp Metabolic 12/17/2014 [facility] Sodium 136 mmol/L N 133- [address] [place] [address] [phone] Potassium 4.6 mmol/L N 3.5-5.0 Chloride 99 mmol/L Low 101-111 Co2 Carbon Dioxide 32 mmol/L N 22-32 Anion Gap 5 mmol/L N 2-11 Glucose 119 mg/dL High 70-100 Blood Urea Nitrogen 19 mg/dL N 6-24 Creatinine 1.02 mg/dL N 0.67-1.17 BUN/Creatinine Ratio 18.6 N 8-20 Calcium 9.3 mg/dL N 8.6-10.3 Total Protein 6.3 g/dL Low 6.4-8.9 Albumin 4.1 g/dL N 3.2-5.2 Globulin 2.2 g/dL N 2-4 Albumin/Globulin Ratio 1.9 N 1-3 Total Bilirubin 1.30 mg/dL High 0.2-1.0 Alkaline Phosphatase 72 U/L N 34-104 Alt 17 U/L N 7-52 Ast 15 U/L N 13-39 Egfr Non- 71.2 N >60 Egfr 91.6 N >60 65 CBC Auto 12/17/2014 [facility] White Blood 3.5 10^3/uL Low 4.8 -10.[address] [place] [address] [phone] Red Blood Count 4.26 10^6/uL N 4.0-5.4 Hemoglobin 13.5 g/dL Low 14.0-18.0 Hematocrit 41 % Low 42-52 Mean Corpuscular Volume 96 fL High 80-94 Mean Corpuscular Hemoglobin 32 pg High 27-31 Mean Corpuscular HGB Conc 33 g/dL N 31-36 Red Cell Distribution Width 13 % N 10.5-15 Platelet Count 165 10^3/uL N 150-450 Mean Platelet Volume 9 um3 N 7.4-10.4 Abs Neutrophils 2.0 10^3/uL N 1.5-7.7 Abs Lymphocytes 0.8 10^3/uL Low 1.0-4.8 Abs Monocytes 0.5 10^3/uL N 0-0.8 Abs Eosinophils 0.1 10^3/uL N 0-0.6 Abs Basophils 0 10^3/uL N 0-0.2 Abs Nucleated RBC 0 10^3/uL N Granulocyte % 58.3 % N 38-83 Lymphocyte % 22.9 % Low 25-47 Monocyte % 14.1 % High 1-9 Eosinophil % 3.8 % N 0-6 Basophil % 0.9 % N 0-2 Nucleated Red Blood Cells % 0.1 N Urine Microalbumin 12/17/2014 [facility] Ur Microalbumin 24.0 mg /L N Random [address] (mg/L) [place], [place] [id number] [phone] Urine Creatinine 121.61 mg/dL N Urine Microalbumin/Creatinine 19.7 ug/mg N <31 Urine Microalbumin 12/13/2014 [facility] Ur Microalbumin 18.0 mg /L N Random [address] (mg/L) [place], [place] [id number] [phone] Urine Creatinine 40.12 mg/dL N Urine Microalbumin/Creatinine 44.8 ug/mg High <31 Ua Routine 12/13/2014 [facility] Ua Specific [place] 1.005 Ua PH 5 Ua Color yellow Ua Appera clear Ua WBC negative Ua Protein negative Ua Glucose 2000+++ Ua Ketones negative Ua Bilirubin negative Ua Urobilinogen normal Ua Nitrite negative Ua Occult Blood negative Laboratory test 10/16/2014 [facility] Point of Care 253 mg/dL High 74-106 [address] Glucose [place], [place] [id number] [phone] Laboratory test 10/16/2014 [facility] Point of Care 263 mg/dL High 74-106 [address] Glucose [place], [place] [address] [phone] Laboratory test 10/07/2014 [facility] Surgical SEE [address] [place] [address] BELOW [phone] Urine 01/31/2014 [facility] Ur Microalbumin 65.0 mg/L N Microalbumin [address] (mg/L) Random [place], [place] [id number] [phone] Urine Creatinine 162.43 mg/dL N Urine Microalbumin/Creatinine 40.0 High Less Than 31 Comp Metabolic 01/31/2014 [facility] Sodium 131 mmol/L Low 133 -145 [address] [place] [address] [phone] Potassium 4.1 mmol/L N 3.7-5.6 Chloride 96 mmol/L Low 101-111 Co2 Carbon Dioxide 30 mmol/L N 22-32 Anion Gap 5 mmol/L N 2-11 Glucose 132 mg/dL High 70-100 Blood Urea Nitrogen 20 mg/dL N 6-24 Creatinine 1.04 mg/dL N 0.67-1.17 BUN/Creatinine Ratio 19.2 N 8-20 Calcium 9.2 mg/dL N 8.6-10.3 Total Protein 6.7 g/dL N 6.4-8.9 Albumin 4.2 g/dL N 3.2-5.2 Globulin 2.5 g/dL N 2-4 Albumin/Globulin Ratio 1.7 N 1-3 Total Bilirubin 1.80 mg/dL High 0.2-1.0 Alkaline Phosphatase 73 U/L N 34-104 Alt 22 U/L N 7-52 Ast 17 U/L N 13-39 Egfr Non- 69.6 N >60 Egfr 89.5 N >60 70 Lipid Profile 01/31/2014 [facility] Triglycerides 80 mg/dL N 71 (Trig/Chol/HDL) [address] [place] [address] [phone] Cholesterol 125 mg/dL N 72 HDL Cholesterol 66.1 mg/dL N 73 LDL Cholesterol 43 mg/dL N 74 Liver Function 01/31/2014 [facility] Direct 0.30 mg/dL High 0.03-0.[address] [place] [address] [phone] Indirect Bilirubin 1.5 mg/dL High 0.3-1.0 Laboratory test 01/08/2014 [facility] PSA Diagnostic 0.589 N 0 -4.0 [address] ng/[place] [address] [phone] Laboratory test 02/28/2013 [facility] Luteinizing 12.11 High 2 -[address] Hormone miu/[place] [address] [phone] Testosterone Free 02/28/2013 [facility] Free 14 ng/dL 9-30 76 & Total [address] [place] [address] ng/dl [phone] Testosterone 460 ng/dL 240-950 77 Laboratory test 02/23/2013 [facility] Vitamin B12 406 pg/mL 180-[address] [place], [place] [id number] [phone] Liver Function 02/23/2013 [facility] Direct 0.2 mg/dL 0.1- 0.5 Panel 101 [address] [place], [place] [id number] [phone] Indirect Bilirubin 1.3 mg/dL High 0.3-1.0 Lipid Profile 02/23/2013 [facility] Triglycerides 46 mg/dL 40 -200 (Trig/Chol/HDL) [address] [place], [place] [id number] [phone] Cholesterol 120 mg/dL Less than 200 HDL Cholesterol 51 mg/dL 40-60 79 Cholesterol/HDL Ratio 2.4 Average 1-4.44 LDL Cholesterol 59.8 Less Than 100 80 Comp Metabolic Panel 02/23/2013 [facility] Sodium 135 mmol/L 133-[address] [place] [address] [phone] Potassium 4.2 mmol/L 3.5-5.0 Chloride 100 mmol/L [...] Egfr Non- 73.0 >60 Egfr 93.9 >60 81 Urine Microalbumin 02/23/2013 [facility] Ur Microalbumin 47.0 mg /L [address] (mg/L) [place] [address] [phone] Urine Creatinine 365.4 mg/dL Urine Microalbumin/Creatinine 12.9 Less Than 31 Laboratory test 01/24/2013 [facility] Stool Culture (SEE NOTE) [address] [place] [address] [phone] O&P Ova & 01/24/2013 [facility] Ova Parasite (SEE NOTE) 84 Parasites Full [address] Concen Full [place], [place] [id number] [phone] Stool For Blood 01/24/2013 [facility] Stool Occult (SEE NOTE) [address] [place] [address] [phone] Laboratory test 01/24/2013 [facility] O P: (SEE NOTE) [address] Giardia/[place] [address] or Screen [phone] Laboratory test 01/02/2013 [facility] PSA Diagnostic 0.49 ng/mL 0-4.0 [address] [place], [place] [id number] [phone] Basic Metabolic 09/08/2012 [facility] Sodium 138 mmol/L 133- [address] 5 [place] [address] [phone] Potassium 4.3 mmol/L 3.5-5.0 Chloride 103 mmol/L 101-111 Co2 Carbon Dioxide 31.0 mmol/L 22-32 Anion Gap 4.0 mmol/L 2-11 Glucose 97 mg/dL 70-100 Blood Urea Nitrogen 22 mg/dL 6-24 Creatinine 1.10 mg/dL 0.50-1.40 BUN/Creatinine Ratio 20.0 8-20 Calcium 9.6 mg/dL 8.1-9.9 Egfr Non- 65.6 >60 Egfr 84.4 >60 88 Laboratory test 09/08/2012 [facility] Erythrocyte Sed 10 mm/Hr 0-[address] [place] [address] [phone] Basic Metabolic 05/03/2012 [facility] Sodium 133 mmol/L 133- [address] [place] [address] [phone] Potassium 4.5 mmol/L 3.5-5.0 Chloride 98 mmol/L Low 101-111 Co2 Carbon Dioxide 30.0 mmol/L 22-32 Anion Gap 5.0 mmol/L 2-11 Glucose 178 mg/dL High 70-100 Blood Urea Nitrogen 15 mg/dL 6-24 Creatinine 1.00 mg/dL 0.50-1.40 BUN/Creatinine Ratio 15.0 8-20 Calcium 9.3 mg/dL 8.1-9.9 Egfr Non- 73.2 >60 Egfr 94.2 >60 89 Lipid Profile 02/11/2012 [facility] Triglycerides 143 mg/dL 40-200 (Trig/Chol/HDL) [address] [place] [address] [phone] Cholesterol 129 mg/dL Less than 200 90 HDL Cholesterol 56 mg/dL 40-60 91 Cholesterol/HDL Ratio 2.3 AVERAGE 1-4.44 LDL Cholesterol 44.4 mg/dL Less Than 100 Liver Function 02/11/2012 [facility] Direct Bilirubin 0.3 mg/dL 0.1-0.5 Panel [address] [place] [address] [phone] Indirect Bilirubin 1.7 mg/dL High 0.3-1.0 Laboratory test 02/11/2012 [facility] Vitamin B12 378 pg/mL 180-914 finding [address] [place] [address] [phone] TSH (Thyroid Stimulating Horm) 0.74 MIU/ML 0.34-5.60 Laboratory test 02/11/2012 [facility] PSA Diagnostic 0.67 NG/ML 0-4.0 finding [address] [place] [address] [phone] Urine 02/11/2012 [facility] Ur Microalbumin 113.0 mg/L [address] (Mg/L) [place] [address] [phone] Urine Creatinine 165.6 mg/dL Urine Microalbumin/Creatinine 68.2 UG/MG High Less Than 31 Comp Metabolic Panel 02/11/2012 [facility] Sodium 137 mmol/L 133-[address] [place] [address] [phone] Potassium 4.5 mmol/L 3.5-5.0 Chloride 100 mmol/L [...] 1-3 Total Bilirubin 2.0 mg/dL High 0.1-1.0 93 Alkaline Phosphatase 75 U/L 30-110 Alt 23 U/L 14-54 Ast 21 U/L 12-42 Egfr Non- 65.6 >60 Egfr 84.4 >60 94 CBC Auto Diff 10/21/2011 [facility] White Blood 4.1 CUMM Low 4.8-10.[address] [place] [address] [phone] Red Cell Count 4.36 CUMM Low 4.6-6.2 [...] Eosinophils 0.1 0-0.6 Abs Basophils 0 0-0.2 95 CBC Auto Diff 09/10/2011 White Blood Count [...] Alb/Creatinine Ratio 28.5 UG/MG Less Than 30 96 Comp Metabolic Panel 09/10/2011 Sodium 138 mmol/L 135-145 Potassium 4.1 mmol/L 3.5-5.0 Chloride 101 mmol/L 101-111 Co2 (Carbon Dioxide) 30.0 mmol/L 22-32 Anion Gap 7.0 mmol/L 2-11 97 Glucose 78 mg/dL 70-100 BUN 12 mg/dL 6-24 Creatinine 1.1 mg/dL 0.50-1.40 One Over Creatinine 0.90 BUN/Creatinine Ratio 10.9 8-20 Calcium 9.5 mg/dL 8.1-9.9 Total Protein 6.0 GM/DL Low 6.2-8.1 Albumin 3.6 GM/DL 3.2-5.2 Globulin 2.4 GM/DL 2-4 Albumin/Globulin Ratio 1.5 1-3 Bilirubin Total 1.1 mg/dL 0.4-1.5 98 Alkaline Phosphatase 74 U/L 39-117 Alt (SGPT) 20 U/L 17-63 Ast (Sgot) 21 U/L 12-42 eGFR Non- 65.8 > 60 eGFR 84.6 > 60 99 Lipid Profile (Trig/Chol/HDL) 09/10/2011 Triglyceride 70 mg/dL 40-200 Cholesterol 117 mg/dL Less Than 200 100 High Density Lipoprotein 38 mg/dL Low 40-60 101 Cholesterol/HDL Ratio 3.08 AVERAGE 1-4.97 Low Density Lipoprotein 65 mg/dL Less Than 100 102 Laboratory test 08/29/2011 [facility] BNP Evaluatr 24.0 pg/mL 0-[address] [place] [address] [phone] CKMB 08/29/2011 [facility] CKMB In NG/ML 3.5 NG/ML 0.3-[address] [place] [address] [phone] % CKMB 2 %MB 0-9 103 Comp Metabolic Panel 08/29/2011 [facility] Sodium 137 mmol/L 135-[address] [place] [address] [phone] Potassium 3.5 mmol/L 3.5-5.0 Chloride 100 mmol/L Low 101-111 Co2 (Carbon Dioxide) 24.0 mmol/L 22-32 Anion Gap 13.0 mmol/L High 2-11 104 Glucose 168 mg/dL High 70-100 BUN 19 mg/dL 6-24 Creatinine 0.8 mg/dL 0.50-1.40 One Over Creatinine 1.25 BUN/Creatinine Ratio 23.8 High 8-20 Calcium 9.2 mg/dL 8.1-9.9 Total Protein 6.7 GM/DL 6.2-8.1 Albumin 3.8 GM/DL 3.2-5.2 Globulin 2.9 GM/DL 2-4 Albumin/Globulin Ratio 1.3 1-3 Bilirubin Total 1.3 mg/dL 0.4-1.5 105 Alkaline Phosphatase 77 U/L 39-117 Alt (SGPT) 20 U/L 17-63 Ast (Sgot) 20 U/L 12-42 eGFR Non- 95.0 > 60 eGFR 122.2 > 60 106 Laboratory test 08/29/2011 [facility] Myoglobin 63.90 17.4- 105.[address] NG/[place] [address] [phone] Laboratory test 08/29/2011 [facility] Troponin-I 0.07 High 0- 0.06 [address] NG/[place] [address] [phone] CPK (Creatine Kinase) 180 U/L 0-200 CBC Auto Diff 08/29/2011 [facility] White Blood 4.3 CUMM Low 4.8-10.[address] [place] [address] [phone] Red Cell Count 4.29 CUMM Low 4.6-6.2 [...] Eosinophils 0.1 0-0.6 Abs Basophils 0.1 0-0.2 Lipid Profile 10/07/2010 [facility] Triglyceride 95 mg/dL 40- 200 (Trig/Chol/HDL) [address] [place] [address] [phone] Cholesterol 130 mg/dL Less Than 200 108 High Density Lipoprotein 52 mg/dL 40-60 109 Cholesterol/HDL Ratio 2.50 AVERAGE 1-4.97 Low Density Lipoprotein 59 mg/dL Less Than 100 110 Comp Metabolic Panel 10/07/2010 [facility] Sodium 134 mmol/L Low 135-[address] [place] [address] [phone] Potassium 4.5 mmol/L 3.5-5.0 Chloride 99 mmol/L Low 101-111 Co2 (Carbon Dioxide) 30.0 mmol/L 22-32 Anion Gap 5.0 mmol/L 2-11 111 Glucose 254 mg/dL High 70-100 BUN 16 mg/dL 6-24 Creatinine 0.90 mg/dL 0.50-1.40 One Over Creatinine 1.10 BUN/Creatinine Ratio 17.8 8-20 Calcium 9.0 mg/dL 8.1-9.9 Total Protein 5.9 GM/DL Low 6.2-8.1 Albumin 3.8 GM/DL 3.2-5.2 Globulin 2.1 GM/DL 2-4 Albumin/Globulin Ratio 1.8 1-3 Bilirubin Total 2.4 mg/dL High 0.4-1.5 112 Alkaline Phosphatase 76 U/L 39-117 Alt (SGPT) 24 U/L 17-63 Ast (Sgot) 23 U/L 12-42 eGFR Non- 83.2 > 60 eGFR 107.0 > 60 113 Urine Microalbumin 10/07/2010 [facility] Microalbumin 68.0 mg/L Random [address] [facility] (MG/L) [place] [address] [phone] Urine Creatinine 146.00 mg/dL Rodolfo Alb/Creatinine Ratio 46.5 UG/MG High Less Than 30 114 Laboratory test 05/14/2010 [facility] Vitamin B12 304 pg/mL 180-914 finding [address] [place] [address] [phone] Lipid Profile 05/14/2010 [facility] Triglyceride 91 mg/dL 40- 200 (Trig/Chol/HDL) [address] [place] [address] [phone] Cholesterol 138 mg/dL Less Than 200 115 High Density Lipoprotein 43 mg/dL 40-60 116 Cholesterol/HDL Ratio 3.21 AVERAGE 1-4.97 Low Density Lipoprotein 77 mg/dL Less Than 100 117 Iron & Iron Binding 02/27/2010 [facility] Iron Total 108 g/dL 45-182 Capacity [address] [place] [address] [phone] Unsaturated Iron Binding 257 g/dL Total Iron Binding Capacity 365 g/dL 250-450 % Iron Saturation 30 % 15-55 Lipid Profile 02/27/2010 [facility] Triglyceride 128 mg/dL 40 -200 (Trig/Chol/HDL) [address] [place] [address] [phone] Cholesterol 156 mg/dL Less Than 200 118 High Density Lipoprotein 47 mg/dL 40-60 119 Cholesterol/HDL Ratio 3.32 AVERAGE 1-4.97 Low Density Lipoprotein 83 mg/dL Less Than 100 120 Laboratory test finding 02/27/2010 [facility] Ferritin 71 NG/ML 24-336 [address] [place] [address] [phone] Vitamin B12 194 pg/mL 180-914 Protein 02/27/2010 [facility] Albumin 3.30 GM/DL 3.0-4.35 Electrophoresis Serum [address] [place] [address] [phone] Alpha 1 0.20 GM/DL 0.09-0.33 Alpha 2 0.83 GM/DL 0.59-1.18 Beta 0.80 GM/DL 0.68-1.02 Gamma 0.97 GM/DL 0.76-1.60 Albumin % 54.1 % 46-63 Alpha 1 % 3.3 % 1.2-5.3 Alpha 2 % 13.6 % 9-17 Beta % 13.1 % 10-16 Gamma % 15.9 % 12-22 A/G Ratio 1.2 0.9-2 Total Protein 6.1 GM/DL Low 6.2-8.1 Spep Comments (SEE NOTE) 121 Liver Function 02/27/2010 [facility] Total Protein 6.3 GM/DL 6.2-8.1 Panel [address] [place] [address] [phone] Albumin 3.8 GM/DL 3.2-5.2 Globulin 2.5 GM/DL 2-4 Albumin/Globulin Ratio 1.5 1-3 Bilirubin Total 2.2 mg/dL High 0.4-1.5 122 Bilirubin Direct 0.3 mg/dL 0.1-0.5 Indirect Bilirubin 1.9 mg/dL High 0.3-1.0 123 Alkaline Phosphatase 71 U/L 39-117 Alt (SGPT) 24 U/L 17-63 Ast (Sgot) 17 U/L 12-42 CBC With 02/27/2010 [facility] White Blood 3.9 CUMM Low 4.8- 10.8 Electronic Diff [address] [facility] [place] [address] [phone] Red Cell Count 4.43 CUMM Low 4.6-6.2 [...] Eosinophils 0.1 0-0.6 Abs Basophils 0 0-0.2 Laboratory test 02/19/2010 [facility] PTT (Aptt) 29.4 25.15- 38.53 124 finding [address] [place] [address] [phone] D Dimer Quantitative < 200 Less Than 230 Protime 02/19/2010 [facility] Inr 0.91 0.82-1.17 125 [address] [place] [address] [phone] Protime 10.7 SEC 10.2-14.8 126 Laboratory test 02/19/2010 [facility] CPK (Creatine 122 U/L 0 -200 finding [address] [facility] Kinase) [place] [address] [phone] Troponin-I (TnI) 0.02 NG/ML 127 Comp Metabolic Panel 02/19/2010 [facility] Sodium 135 mmol/L 135-145 [address] [place] [address] [phone] Potassium 4.4 mmol/L 3.5-5.0 Chloride 100 mmol/L Low 101-111 Co2 (Carbon Dioxide) 26.0 mmol/L 22-32 Anion Gap 9.0 mmol/L 2-11 128 Glucose 214 mg/dL High 70-100 129 BUN 16 mg/dL 6-24 Creatinine 0.90 mg/dL 0.50-1.40 One Over Creatinine 1.10 BUN/Creatinine Ratio 17.8 8-20 Calcium 9.3 mg/dL 8.1-9.9 Total Protein 6.7 GM/DL 6.2-8.1 Albumin 3.9 GM/DL 3.2-5.2 Globulin 2.8 GM/DL 2-4 Albumin/Globulin Ratio 1.4 1-3 Bilirubin Total 2.2 mg/dL High 0.4-1.5 130 Alkaline Phosphatase 78 U/L 39-117 Alt (SGPT) 27 U/L 17-63 Ast (Sgot) 27 U/L 12-42 eGFR Non- 88.4 > 60 eGFR 107.0 > 60 131 CBC With 02/19/2010 [facility] White Blood 4.9 CUMM 4.8-10.8 Electronic Diff [address] [place] [address] [phone] Red Cell Count 4.36 CUMM Low 4.6-6.2 Hemoglobin 13.9 g/dL Low 14.0-18.0 Hematocrit 40 % Low 42-52 Mean Corpuscular Volume 92 um3 80-94 Mean Corpuscular Hemoglob 32 pg High 27-31 Mean Corpuscular HGB Cone 35 g/dL 32-36 Redcell Distribution WDTH 13 % 10.5-15 Platelet Count 198 CUMM 150-450 Mean Platelet Volume 7.5 um3 7.4-10.4 Gran % 69.0 % 38-83 Lymph % 16.7 % Low 25-47 Mononuclear % 11.9 % High 1-9 Eosinophil % 1.7 % 0-6 Basophil % 0.7 % 0-2 Abs Lymphs 0.8 Low 1.0-4.8 Abs Mononuclear 0.6 0-0.8 Absolute Neutrophil Count 3.4 1.5-7.7 Abs Eosinophils 0.1 0-0.6 Abs Basophils 0 0-0.2 132 Laboratory test 10/08/2009 [facility] PSA Screening 0.71 NG/ML 0-4 [address] [place] [address] [phone] Laboratory test 02/02/2007 [facility] TSH 0.95 0.34-5.[address] MIU/ML 0 [place] [address] [phone] Vitamin B12 184 pg/mL 180-914 Testosterone Total 369.1 ng/dL 175-781 Hemoglobin A1c 7.8 % High <6.0 134 Lipid Profile 02/02/2007 [facility] Cholesterol/HDL 3.52 1- 4.97 (Trig/Chol/HDL) [address] [place] [address] [phone] Cholesterol 169 mg/dL Less Than 200 135 Triglyceride 135 mg/dL 40-200 High Density Lipoprotein 48 mg/dL 40-60 Low Density Lipoprotein 94 mg/dL Less Than 100 136 Comp Metabolic Panel 02/02/2007 [facility] One Over Creatinine 1.[address] [place] [address] [phone] Anion Gap 5.0 mmol/L 2-11 137 Albumin/Globulin Ratio 1.8 1-3 Albumin 4.0 GM/DL [...] Ratio 17.0 8-20 Creatinine 1.0 mg/dL 0.5-1.4 Urinalysis W/Microscopic 02/02/2007 [facility] Ua Color YELLOW [address] [place] [address] [phone] Ictotest-Urine NEGATIVE (NEG) Appearance-Urine CLEAR Bacteria-Urine TRACE Blood-Urine NEGATIVE Negative Epith Cells-Ur RARE Esterase-Urine TRACE Abnormal Negative Glucose-Urine NEGATIVE Negative Ketones-Urine NEGATIVE Negative Mucus Urine LARGE Nitrite NEGATIVE Negative PH-Urine 6.0 5-9 Protein-Urine 1+ Abnormal Negative RBC-Urine 0-2 0-2 [id number]-DJF NEGATIVE Negative Specific [place]-Ur 1.017 1.010-1.030 WBC-Urine 0-2 0-5 1 Please note: The following may produce a false positive D Dimer test: - Rheumatoid factor greater than 60 IU/ml - Plasma hemoglobin greater than 0.05 gm/dl - Bilirubin greater than 50 mg/dl - Lipids greater than 1000 mg/dl - FDP greater than 20 ug/ml 2 [place] Severe Sepsis and Septic Shock Management Bundle Measure requires all lactic acids initially measuring >2.0 mmol/L be repeated. 3 Because ethnic data is not always readily [...] 15-29 5 Kidney failure <15 (or dialysis) 4 0-A:Morphology: pearly telangiectatic papule;DDX: Basal Cell Carcinoma;Location: left mid to u 5 SEE RESULT BELOW Name: MARIE SWEENEY : [address]: Mami Lou MD Acct: [id number] Unit: [id number] AGE: 78 Location: [facility] Re02/22/18 SEX: M Status: REG REF SPEC: [id number] VENU: 02/22/18-[address] [facility] [address]: Mami Lou MD REQ: [id number] RECD: 02/22/18 STATUS: MARLEN ANSARI DR: Noa Fernandez MD _ ORDERED: LEVEL 4 COMMENTS: [id number] FINAL DIAGNOSIS Skin, left mid to upper back, biopsy: -- Basal cell carcinoma, superficial and early nodular type. PRE-OPERATIVE DIAGNOSIS Pearly telangiectatic papule, basal cell carcinoma GROSS DESCRIPTION The specimen is received in formalin labeled, Left Mid to Upper Back, and consists of a 0.7 x 0.6 cm roberts-white ovoid hairbearing wrinkled skin shave with a central 0.4 x 0.3 cm roberts white slightly raised ill-defined firm lesion. The specimen is inked, bisected and submitted entirely in one cassette. Signed by and Reported on: Emely Benitez MD 02/23/18 1022 END OF REPORT DEPARTMENT OF PATHOLOGY, [address] [place] [address] Tavo Patel M.D. Director [facility] # [id number] SEE RESULT BELOW Name: MARIE SWEENEY : [address]: Moraima Montague DO Acct: [id number] Unit: [id number] AGE: 78 Location: [place] [address] Re02/06/18 SEX: M Status: ADM IN SPEC: [id number] VENU: 02/06/[address]: Bob Bertrand MD REQ: [id number] RECD: 02/06/18 STATUS: LIZZETTE ANSARI DR: Noa [...] . END OF REPORT DEPARTMENT OF PATHOLOGY, [address] [place] [address] Tavo Patel M.D. Director [facility] # [id number] 7 [facility] Severe Sepsis and Septic Shock Management Bundle Measure requires all lactic acids initially measuring >2.0 mmol/L be repeated. 8 Result TnIDx:0.06 Called to [id number] at: 17:25:41 by:[id number] Read back by: [id number] 9 Because ethnic data is not always readily [...] 5 Kidney failure <15 (or dialysis) 10 Interpretive information available on [employer] Test Catalog at [email or web address] 11 SEE RESULT BELOW Name: MARIE SWEENEY : [address]: Daysi Greer MD Acct: [id number] Unit: [id number] AGE: 78 Location: [place] [address] Re02/06/18 Dis: 02/10/18 SEX: M Status: DIS IN SPEC: [id number] VENU: 02/06/[address]: Bob Bertrand MD REQ: [id number] RECD: 02/06/18 STATUS: LIZZETTE ANSARI DR: Noa Fernandez MD _ SOURCE: BLOOD,VENO SPDESC: ORDERED: Blood Cult Procedure Result Reported Site Aerobic Culture Bottle Final 02/11/18- 1820 ML No Growth Day 5 Anaerobic Culture Bottle Final 02/11/18- 1821 ML No Growth Day 5 * ML - Main Lab . END OF REPORT DEPARTMENT OF PATHOLOGY, [address] [place] [address] Tavo Patel M.D. Director [facility] # [id number] 12 Sl[employer] Apprentice: [id number] 13 SEE RESULT BELOW Name: MARIE SWEENEY : [address]: Kenny Ortega MD Acct: [id number] Unit: [id number] AGE: 78 Location: ED Re02/05/18 SEX: M Status: REG ER SPEC: [id number] VENU: 02/05/[address]: Kenny Ortega MD REQ: [id number] RECD: 02/05/18 STATUS: LIZZETTE ANSARI DR: Noa Fernandez MD _ [facility] ORDERED: Flu A B Request Procedure Result Reported Site Rapid Influenza A B Request Final 02/05/18- 164 ML Specimen received for Influenza A/B Molecular testing * ML - Main Lab . END OF REPORT DEPARTMENT OF PATHOLOGY, [address] [place] [address] Tavo Patel M.D. Director [facility] # [id number] 14 Slater Apprentice: [id number] SEE RESULT BELOW Name: MARIE SWEENEY : [address]: Kenny Ortega MD Acct: [id number] Unit: [id number] AGE: 78 Location: ED Re/14/18 SEX: M Status: REG ER SPEC: [id number] VENU: 02/05/[address] [facility] [address]: Ayla JOHNSON REQ: [id number] RECD: 02/05/18 STATUS: LIZZETTE ANSARI DR: [facility] Noa Fernandez MD _ SOURCE: THROAT SPDESC: ORDERED: Strep A Request Procedure Result Reported Site Rapid Strep A Request Final 02/05/18- 1534 ML Specimen received for Rapid Strep A Molecular testing * ML - Main Lab . END OF REPORT DEPARTMENT OF PATHOLOGY, [address], [place], [place] [address] Tavo Patel M.D. Director [facility] # [id number] 16 1623-A:Morphology: pearly telangiectatic papule;DDX: Basal Cell Carcinoma;Location: right frontal 17 SEE RESULT BELOW Name: PATELMARIE : [address]: Mami Lou MD Acct: [id number] Unit: [id number] AGE: 77 Location: [facility] Re01/05/18 SEX: M Status: REG REF SPEC: [id number] VENU: 01/05/18-[address] [facility] [address]: Mami Lou MD REQ: [id number] RECD: 01/05/18-1715 STATUS: MARLEN ANSARI DR: Noa Fernandez MD _ ORDERED: LEVEL 4 COMMENTS: [id number] FINAL DIAGNOSIS Skin, right frontal scalp, biopsy: [...] 1013 END OF REPORT DEPARTMENT OF PATHOLOGY, [address] [place] [address] Tavo Patel M.D. Director [facility] # [id number] SEE RESULT BELOW Name: PATELMARIE : [address]: Jorden Silva MD Acct: [id number] Unit: [id number] AGE: 77 Location: [facility] Re09/29/17 SEX: M Status: [facility] [place]C: [id number] VENU: 09/29/[address] [facility] [address]: Jorden Silva MD REQ: [id number] RECD: 09/29/17 STATUS: SOUT _ ORDERED: Decal, LEVEL 3 COMMENTS: [id number] FINAL DIAGNOSIS Bone, left index finger, middle [...] 1149 END OF REPORT DEPARTMENT OF PATHOLOGY, [address] [place] [address] Tavo Patel M.D. Director [facility] # [id number] 20 SEE RESULT BELOW Name: MARIE SWEENEY : [address]: Jorden Silva MD Acct: [id number] Unit: [id number] AGE: 77 Location: [facility] Re09/29/17 SEX: M Status: DEP SDC SPEC: [id number] VENU: 09/29/[address] [facility] [address]: Jorden Silva MD REQ: [id number] RECD: 09/29/17 STATUS: LIZZETTE ANSARI DR: Noa Fernandez MD _ SOURCE: FINGER SPDESC:INDEX LEFT ORDERED: Culture Stain Procedure Result Reported Site Wound/Misc Gram Stain Final 09/30/17- 734 ML 1+ Neutrophils No Organisms Seen Wound/Misc Culture Final 10/03/17- 0807 ML No Growth Day 4 * ML - Main Lab . END OF REPORT DEPARTMENT OF PATHOLOGY, [address] [place] [address] Tavo Patel M.D. Director [facility] # [id number] 21 SEE RESULT BELOW Name: MARIE SWEENEY : [address]: Jorden Silva MD Acct: [id number] Unit: [id number] AGE: 77 Location: [facility] Re09/29/17 SEX: M Status: DEP SDC SPEC: [id number] VENU: 09/29/17-[address] [facility] [address]: Jorden Silva MD REQ: [id number] RECD: 09/29/17 STATUS: COMP [facility] DR: Noa Fernandez MD _ SOURCE: WOUND SPDESC:INDEX LEFT ORDERED: Anaerobic Cult Procedure Result Reported Site Anaerobic Culture Final 10/03/17- 806 ML No Growth Day 4 * ML - Main Lab . END OF REPORT DEPARTMENT OF PATHOLOGY, [address] [place] [address] Tavo Patel M.D. Director [facility] # [id number] 22 Acute inflammation: >10.00 23 Acute inflammation: >10.00 24 Not diagnostic. Supplemental testing by immunoblot has been ordered by reflex. Test Performed by: [facility] - [address] [address] 70 Specific serologic response to B. burgdorferi infection [...] screening test (e.g., EIA). Test Performed by: [facility] - [facility] [address] [place] [address] 26 Desirable: <150 Borderline High: 150-199 High: 200-499 Very High: >500 27 Desirable: <200 Borderline High: 200-239 High: >239 28 Low: <40 Desirable: 40-60 High: >60 29 Desirable: <100 Near Optimal: 100-129 Borderline High: 130-159 High: 160-189 Very High: >189 30 Because ethnic data is not always [...] 5 Kidney failure <15 (or dialysis) 31 Normal Range 180 to 914 Indeterminate Range 145 to 180 Deficient Range <145 32 Serum levels of PSA measured using the [...] methods or kits cannot be used interchangeably. 33 Please note: The following may produce a false positive D Dimer test: - Rheumatoid factor greater than 60 IU/ml - Plasma hemoglobin greater than 0.05 gm/dl - Bilirubin greater than 50 mg/dl - Lipids greater than 1000 mg/dl - FDP greater than 20 ug/ml 34 Because ethnic data is not always [...] 5 Kidney failure <15 (or dialysis) 35 Desirable <150 Borderline high 150-199 High 200-499 Very High >500 36 Desirable <200 Borderline high 200-239 High >239 37 Low <40 Desirable: 40-60 High: >60 38 Desirable: <100 mg/dL Near Optimal: 100-129 mg/dL Borderline High: 130-159 mg/dL High: 160-189 mg/dL Very High: >189 mg/dL 39 Because ethnic data is not always readily [...] 15-29 5 Kidney failure <15 (or dialysis) 40 Because ethnic data is not always readily [...] 15-29 5 Kidney failure <15 (or dialysis) 41 Because ethnic data is not always readily [...] 15-29 5 Kidney failure <15 (or dialysis) 42 ARTERIAL ACCESS SITE 43 Reference ranges based on room air. 44 Reference ranges based on room air. 45 Reference ranges based on room air. 46 Reference ranges based on room air. 47 RESULT: No apparent monoclonal protein on serum electrophoresis. Test Performed by: [address] [address] Farm Supervisor: Clifton Bruce II, M.D., Ph.D. 48 Because ethnic data is not always [...] 5 Kidney failure <15 (or dialysis) 49 Desirable <150 Borderline high 150-199 High 200-499 Very High >500 50 Desirable <200 Borderline high 200-239 High >239 51 Low <40 Desirable: 40-60 High: >60 52 Desirable: <100 mg/dL Near Optimal: 100-129 mg/dL Borderline High: 130-159 mg/dL High: 160-189 mg/dL Very High: >189 mg/dL 53 Because ethnic data is not always readily [...] 15-29 5 Kidney failure <15 (or dialysis) 54 FASTING 10 HOUR Copy Result to: [facility] ([id number]) 55 Normal Range 180 to 914 Indeterminate Range 145 to 180 Deficient Range <145 56 Copy Result to: [facility] ([id number]) 57 Because ethnic data is not always readily [...] 15-29 5 Kidney failure <15 (or dialysis) 58 Serum levels of PSA measured using the [email or web address] DXI Hybritech immunoassay should not be interpreted [...] methods or kits cannot be used interchangeably. 59 FASTING 10 HOUR 60 Desirable <150 Borderline high 150-199 High 200-499 Very High >500 61 Desirable <200 Borderline high 200-239 High >239 62 Low <40 Desirable: 40-60 High: >60 63 Desirable: <100 mg/dL Near Optimal: 100-129 mg/dL Borderline High: 130-159 mg/dL High: 160-189 mg/dL Very High: >189 mg/dL 64 FASTING 10 HOUR 65 Because ethnic data is not always [...] 5 Kidney failure <15 (or dialysis) 66 Slater Apprentice: [id number] ALEX HARRELL 67 Slater Apprentice: [id number] GOLIDE ELISA 68 SEE RESULT BELOW Name: PATELMARIE John : [address]: Damian Goldberg MD Acct: [id number] Unit: [id number] AGE: 74 Location: ENDO Re10/07/14 SEX: M Status: REG REF SPEC: [id number] VENU: 10/07/14 [place] [facility]: Damian Goldberg MD REQ: [id number] RECD: 10/07/146331 STATUS: MARLEN ANSARI DR: Noa Fernandez MD [...] performed at Main Lab DEPARTMENT OF PATHOLOGY, [address] [place] [address] Tavo Patel M.D. Director [facility] # [id number] PT IS FASTING 70 Because ethnic data is not always readily [...] 15-29 5 Kidney failure <15 (or dialysis) 71 Desirable <150 Borderline high 150-199 High 200-499 Very High >500 72 Desirable <200 Borderline high 200-239 High >239 73 Low <40 Desirable: 40-60 High: >60 74 Desirable <100 Near Optimal 100-129 Borderline high 130-159 High 160-189 Very High >189 75 Serum levels of PSA measured using the [employer] DXI Hybritech immunoassay should not be interpreted [...] methods or kits cannot be used interchangeably. 76 Testing performed by [facility]. 77 Testing performed by Liquid Chromatography-Tandem Mass Spectrometry (LC-MS/MS). Test Performed by: [place] [address] Farm Supervisor: Bon Rivers III, M.D. 78 FASTING 79 HDL Interpretation: Undesirable: High Risk: Less than 40 mg/dL Desirable: Low Risk: Greater than 60 mg/dL 80 LDL Interpretation: Low Risk Optimal Level: LDL Less than 100 mg/dL Near or Above Optimal: LDL 100-129 mg/dL Borderline High Risk: LDL 130-159 mg/dL High Risk: LDL 160-189 mg/dL Very High Risk: LDL Greater than 189 mg/dL 81 Because ethnic data is not always readily [...] 15-29 5 Kidney failure <15 (or dialysis) 82 Microalbuminuria in a random sample is defined as: Microalbumin/Creatinine ratio of 30-299 ug/mg. 83 RUN DATE: 01/26/13 [facility] LAB LIVE PAGE 1 RUN TIME: [address] [place] [address] Specimen Inquiry Name: MARIE SWEENEY : [address]: Noa Fernandez MD Acct: [id number] Unit: [id number] AGE: 73 Location: [facility] Re01/24/13 SEX: M Status: REG REF SPEC: [id number] VENU: 01/24/[address] [facility] [address]: Noa Fernandez MD REQ: [id number] RECD: 01/24/13 STATUS: RES _ SOURCE: STOOL SPDESC: ORDERED: Hemoccult, Stool Culture, O P (Full), O P: Giar/Crypt QUERIES: [facility] Number [id number] Procedure Result Verified Site Stool Culture Final [...] performed at Main Lab DEPARTMENT OF PATHOLOGY, [facility] [employer] [place], [place] [address] Tavo Patel M.D. Director [facility] Permit #[id number] RUN DATE: 01/26/13 [facility] LAB LIVE PAGE 2 RUN TIME: 1354 [facility] [employer] [place], [place] [address] Specimen Inquiry Patient: MARIE SWEENEY [id number] (Continued) Specimen: [id number] Collected: 01/24/13 Received: 01/24/13381 (Continued) Procedure Result Verified Site Shiga Toxin [...] performed at Main Lab DEPARTMENT OF PATHOLOGY, [facility] [employer] [place], [place] [address] Tavo Patel M.D. Director [facility] Permit #[id number] RUN DATE: 01/25/13 [facility] LAB LIVE PAGE 1 RUN TIME: 1035 [facility] [employer] [place], [place] [address] Specimen Inquiry Name: MARIE SWEENEY : [address]: Noa Fernandez MD Acct: [id number] Unit: [id number] AGE: 73 Location: [facility] Re01/24/13 SEX: M Status: REG REF SPEC: [id number] VENU: 01/24/[address] [facility] [address]: Noa Fernandez MD REQ: [id number] RECD: 01/24/13 STATUS: RES _ SOURCE: STOOL SPDESC: ORDERED: Hemoccult, Stool Culture, O P (Full), O P: Giar/Crypt QUERIES: [employer] Number [id number] Procedure Result Verified Site Stool Culture Preliminary [...] performed at Main Lab DEPARTMENT OF PATHOLOGY, [facility] [employer] [place] [address] Tavo Patel M.D. Director [facility] Permit #[id number] RUN DATE: 01/24/13 [facility] LAB LIVE PAGE 1 RUN TIME: 1603 [facility] [place] [place], [place] [address] Specimen Inquiry Name: PATELMARIE : [address]: Noa Fernandez MD Acct: [id number] Unit: [id number] AGE: 73 Location: [facility] Re01/24/13 SEX: M Status: REG REF SPEC: [id number] VENU: 01/24/130750 SUBM DR: Noa Fernandez MD REQ: [id number] RECD: 01/24/134651 STATUS: RES _ SOURCE: STOOL SPDESC: ORDERED: Hemoccult, Stool Culture, O P (Full), O P: Giar/Crypt QUERIES: [employer] Number [id number] Procedure Result Verified Site Stool Culture PENDING Stool Specimen Description Final 01/24/13- 1545 ML Stool Color Brown Stool Form Nonformed Stool Consistency Soft Shiga Toxin 1 2 PENDING Stool Occult Blood Final 01/24/13- 1603 ML Stool Occult Blood Negative Ova Parasite Concen Full PENDING O P: Giardia/Cryptospor Screen PENDING END OF REPORT * ML=Testing performed at Main Lab DEPARTMENT OF PATHOLOGY, [address] [place] [address] Tavo Patel M.D. Director [facility] Permit #[id number] RUN DATE: 01/26/13 [facility] LAB LIVE PAGE 1 RUN TIME: [address] [place] [address] Specimen Inquiry Name: MARIE SWEENEY John : [address]: Noa Fernandez MD Acct: [id number] Unit: [id number] AGE: 73 Location: [facility] Re01/24/13 SEX: M Status: REG REF SPEC: [id number] VENU: 01/24/[address] [facility] [address]: Noa Fernandez MD REQ: [id number] RECD: 01/24/130 STATUS: COMP _ SOURCE: STOOL SPDESC: ORDERED: Hemoccult, Stool Culture, O P (Full), O P: Giar/Crypt QUERIES: [facility] Number [id number] Procedure Result Verified Site Stool Culture Final [...] performed at Main Lab DEPARTMENT OF PATHOLOGY, [facility] [employer] [place], [place] [address] Tavo Patel M.D. Director [facility] Permit #[id number] RUN DATE: 01/26/13 [facility] LAB LIVE PAGE 2 RUN TIME: 1438 [facility] [place] [place], [place] [address] Specimen Inquiry Patient: MARIE SWEENEY [id number] (Continued) Specimen: [id number] Collected: 01/24/13 Received: 01/24/13 (Continued) Procedure Result [...] is requested. Contact the Microbiology Department at [phone]. TEST LIMITATIONS: As with all diagnostic procedures, [...] performed at Main Lab DEPARTMENT OF PATHOLOGY, [address] [place] [address] Tavo Patel M.D. Director [facility] Permit #[id number] Serum levels of PSA measured using the [employer] DXI Hybritech immunoassay should not be interpreted [...] methods or kits cannot be used interchangeably. 88 Because ethnic data is not always [...] 5 Kidney failure <15 (or dialysis) 89 Because ethnic data is not always readily [...] 15-29 5 Kidney failure <15 (or dialysis) 90 Desirable: Less than 200 MG/DL Borderline-High Risk: 200-239 MG/DL High-Risk: 240 MG/DL and over 91 HDL Interpretation: Undesirable: High Risk: Less than 40 MG/DL Desirable: Low Risk: Greater than 60 MG/DL 92 Microalbuminuria in a random sample is defined as: Microalbumin/Creatinine ratio of 30-299 ug/mg. 93 A metabolite of Naproxen, O-desmethylnaproxen, has been shown to interfere with the Jendrassik-Norma method for measuring total bilirubin. Samples from patients who have taken Naproxen have shown spurious elevation in total bilirubin levels. 94 Because ethnic data is not always readily [...] 15-29 5 Kidney failure <15 (or dialysis) 95 Lymphopenia % 96 MICROALBUMINURIA IN A RANDOM SAMPLE IS DEFINED : MICROALBUMIN/CREATININE RATIO OF 30-299 ug/mg. . 97 Anion gap measurement may be of limited value in the presence of any alkalosis, especially in a combined acid base disorder. . 98 A metabolite of Naproxen, O-desmethylnaproxen, has been shown to interfere with the Jendrassik-Norma method for measuring total bilirubin. Samples from patients who have taken Naproxen have shown spurious elevation in total bilirubin levels. 99 Because ethnic data is not always readily [...] 15-29 5 Kidney failure <15 (or dialysis) 100 CHOLESTEROL INTERPRETATION: Desirable: Less than 200 MG/DL Borderline-High Risk: 200-239 MG/DL High-Risk: 240 MG/DL and over 101 HDL INTERPRETATION: Undesirable: High Risk: Less than 40 MG/DL Desirable: Low Risk: Greater than 60 MG/DL 102 LDL INTERPRETATION: Low Risk Optimal Level: LDL Less than 100 MG/DL Near or Above Optimal: LDL 100-129 MG/DL Borderline High Risk: LDL 130-159 MG/DL High Risk: LDL 160-189 MG/DL Very High Risk: LDL Greater than 189 MG/DL 103 INTERPRETATION %CK-MB < 5% NOT SUPPORTIVE OF DIAGNOSIS OF [place] 5 - <10% INDETERMINATE; SUGGEST SERIAL STUDIES IF CLINICALLY INDICATED 10% OR > CONSISTENT WITH DIAGNOSIS OF [place] . 104 Anion gap measurement may be of limited value in the presence of any alkalosis, especially in a combined acid base disorder. . 105 A metabolite of Naproxen, O-desmethylnaproxen, has been shown to interfere with the Jendrassik-Norma method for measuring total bilirubin. Samples from patients who have taken Naproxen have shown spurious elevation in total bilirubin levels. 106 Because ethnic data is not always readily [...] 15-29 5 Kidney failure <15 (or dialysis) 107 New Reference Range and Interpretation effective 01/26/2002 TnI (ng/ml) INTERPRETATION Less Than 0.06 ng/mL NOT SUPPORTIVE OF DIAGNOSIS OF [place] 0.06 - 0.50 ng/ml INDETERMINATE: SUGGEST SERIAL STUDIES IF CLINICALLY INDICATED. Greater than 0.5 ng/mL CONSISTENT WITH DIAGNOSIS OF [place] . 108 CHOLESTEROL INTERPRETATION: Desirable: Less than 200 MG/DL Borderline-High Risk: 200-239 MG/DL High-Risk: 240 MG/DL and over 109 HDL INTERPRETATION: Undesirable: High Risk: Less than 40 MG/DL Desirable: Low Risk: Greater than 60 MG/DL 110 LDL INTERPRETATION: Low Risk Optimal Level: LDL Less than 100 MG/DL Near or Above Optimal: LDL 100-129 MG/DL Borderline High Risk: LDL 130-159 MG/DL High Risk: LDL 160-189 MG/DL Very High Risk: LDL Greater than 189 MG/DL 111 Anion gap measurement may be of limited value in the presence of any alkalosis, especially in a combined acid base disorder. . 112 A metabolite of Naproxen, O-desmethylnaproxen, has been shown to interfere with the Jendrassik-Norma method for measuring total bilirubin. Samples from patients who have taken Naproxen have shown spurious elevation in total bilirubin levels. 113 Because ethnic data is not always readily [...] 15-29 5 Kidney failure <15 (or dialysis) 114 MICROALBUMINURIA IN A RANDOM SAMPLE IS DEFINED : MICROALBUMIN/CREATININE RATIO OF 30-299 ug/mg. . 115 CHOLESTEROL INTERPRETATION: Desirable: Less than 200 MG/DL Borderline-High Risk: 200-239 MG/DL High-Risk: 240 MG/DL and over 116 HDL INTERPRETATION: Undesirable: High Risk: Less than 40 MG/DL Desirable: Low Risk: Greater than 60 MG/DL 117 LDL INTERPRETATION: Low Risk Optimal Level: LDL Less than 100 MG/DL Near or Above Optimal: LDL 100-129 MG/DL Borderline High Risk: LDL 130-159 MG/DL High Risk: LDL 160-189 MG/DL Very High Risk: LDL Greater than 189 MG/DL 118 CHOLESTEROL INTERPRETATION: Desirable: Less than 200 MG/DL Borderline-High Risk: 200-239 MG/DL High-Risk: 240 MG/DL and over 119 HDL INTERPRETATION: Undesirable: High Risk: Less than 40 MG/DL Desirable: Low Risk: Greater than 60 MG/DL 120 LDL INTERPRETATION: Low Risk Optimal Level: LDL Less than 100 MG/DL Near or Above Optimal: LDL 100-129 MG/DL Borderline High Risk: LDL 130-159 MG/DL High Risk: LDL 160-189 MG/DL Very High Risk: LDL Greater than 189 MG/DL 121 NORMAL ELECTROPHORETIC PATTERN. 122 A metabolite of Naproxen, O-desmethylnaproxen, has been shown to interfere with the Jendrmacyik-Norma method for measuring total bilirubin. Samples from patients who have taken Naproxen have shown spurious elevation in total bilirubin levels. 123 Please note updated reference range, effective 11/13/09 124 COMMENTS: N 125 Recommended INR for Patients on Oral Anticoagulants Prophylaxis 2.0 - 3.0 Treatment of thrombosis 2.0 - 3.0 Prevention of embolism 2.0 - 3.0 Prevention of embolism from prosthetic heart valves 2.5 - 3.5 126 DIAGNOSIS,TREATMENT,AND THERAPY MUST BE BASED ON THE INR VALUE ALONE. 127 New Reference Range and Interpretation effective 01/26/2002 TnI (ng/ml) INTERPRETATION Less Than 0.06 ng/mL NOT SUPPORTIVE OF DIAGNOSIS OF [place] 0.06 - 0.50 ng/ml INDETERMINATE: SUGGEST SERIAL STUDIES IF CLINICALLY INDICATED. Greater than 0.5 ng/mL CONSISTENT WITH DIAGNOSIS OF [place] . 128 Anion gap measurement may be of limited value in the presence of any alkalosis, especially in a combined acid base disorder. . 129 Note change in reference range as of 12/14/07. The change was based on recommendations from the [place] [employer]. 130 A metabolite of Naproxen, O-desmethylnaproxen, has been shown to interfere with the Jendrassik-[place] method for measuring total bilirubin. Samples from patients who have taken Naproxen have shown spurious elevation in total bilirubin levels. 131 Because ethnic data is not always readily [...] 15-29 5 Kidney failure <15 (or dialysis) 132 Lymphopenia % 133 * SERUM LEVELS OF PSA MEASURED USING THE [employer] OTR ACCESS HYBRITECH IMMUNOASSAY SHOULD NOT BE INTERPRETED ABSOLUTE EVIDENCE OF THE PRESENCE OR ABSENCE OF DISEASE. THE PSA VALUE SHOULD BE USED IN CONJUNCTION WITH OTHER PERTINENT CLINICAL DIAGNOSTIC PROCEDURES. 134 THERAPEUTIC TARGET FOR THE TREATMENT OF DIABETES MELLITUS PATIENTS IS <7% HBA1C, AND IN SELECTIVE PATIENTS <6.0%. PLEASE REFER TO [place] [employer] DIABETIC CARE GUIDELINES FOR FURTHER INFORMATION. 135 Classification: Desirable . 136 CALCULATED LDL APPROXIMATES THE VALUE OF A DIRECT LDL MEASUREMENT. Classification: Optimal Level . 137 Anion gap measurement may be of limited value in the presence of any alkalosis, especially in a combined acid base disorder. . Procedures Date Code Description Status 03/14/2018 92753 EKG Tracing & Interpretation Completed 02/25/2018 78289 EKG, Interpretation Only Completed 02/22/2018 81605 EKG Tracing & Interpretation Completed 02/07/2018 38404 ECHO Transthorasic Realtime 2D W Doppler & Color Flow Completed Hosp 02/07/2018 96852 ECHO Transthorasic Realtime 2D W Doppler & Color Flow Completed Hosp 11/22/2017 [id number] Diabetic Retinal Eye Exam Completed 09/29/201722533 Inject/Drain Joint/Bursa Small W/O US Completed 09/29/201763458 Excise Biopsy Bone Deep Completed 09/29/201710700 Inject/Drain Joint/Bursa Small W/O US Completed 09/29/201797036 Excise Biopsy Bone Deep Completed 04/12/2017 446296537 Diabetic Retinal Eye Exam Completed 02/23/2017 86069 EKG Tracing & Interpretation Completed 10/19/2016 407551354 Diabetic Retinal Eye Exam Completed 05/05/2016 31096 Inject Tendon Sheath Or Ligament Aponeurosis Eg Completed Plantar Fascia 04/08/2016 039752304 Diabetic Retinal Eye Exam Completed 11/10/2015 05613 Cardiac Cath,LT Hrtmincl Intraprocedural Ink LT Completed Ventricul Mammary 10/23/2015 67274 Stress Test Completed 10/23/2015 38082 Myocardial Perfusion Imaging Tomographic (Spect) Completed Multiple Studies 10/21/2015 41262 ECHO Transthoracic, Real-Time 2D With Doppler And Completed Color Flow 10/07/2015 816087118 Diabetic Retinal Eye Exam Completed 09/26/2015 95283 EKG Tracing & Interpretation Completed 09/25/2015 89002 Inject Tendon Sheath Or Ligament Aponeurosis Eg Completed Plantar Fascia 09/23/2015 02951 Carotid Doppler,Bilateral Completed 09/23/2015 05513 Carotid Doppler,Bilateral Completed 02/06/201599043 Inject Tendon Sheath Or Ligament Aponeurosis Eg Completed Plantar Fascia 10/11/2014 92896 EKG Tracing & Interpretation Completed 10/07/2014 47914971 Colonoscopy Completed 09/19/2014 161193178 Diabetic Retinal Eye Exam Completed 03/12/2014 797033351 Diabetic Retinal Eye Exam Completed 01/17/2014 94040 Rad Exam; Wrist, Comp, Min 3 Views Completed 01/17/2014 02710 Inject Tendon Sheath Or Ligament Aponeurosis Eg Completed Plantar Fascia 08/17/2013 93618 Carotid Doppler,Bilateral Completed 08/14/2013 47011 ECHO Transthoracic, Real-Time 2D With Doppler And Completed Color Flow 08/08/2013 48289 Myocardial Perfusion Imaging Tomographic (Spect) Completed Multiple Studies 08/08/2013 20574 Stress Test Completed 02/18/2012 122994699 Diabetic Retinal Eye Exam Completed 08/20/2011 769019067 Diabetic Retinal Eye Exam Completed 04/12/2011 78250 EKG Tracing & Interpretation Completed 09/29/2009 91882 EKG Tracing & Interpretation Completed 08/19/2008 38920 EKG Tracing & Interpretation Completed 03/08/2007 76750 EKG Tracing & Interpretation Completed 05/03/2006 43860 Pulse Doppler & Continuous Wave Completed 05/03/2006 50044 Echocardiogram Completed 05/03/2006 39603 Echocardiogram Completed 05/03/2006 61368 Color Doppler Completed 05/03/2006 89805 Color Doppler Completed Encounters Type Date Location Provider Dx Diagnosis Office Visit 02/28/2018 [facility] I35.0 Nonrheumatic aortic 8:56a tyler Obando NP (valve) stenosis Hospitalists Office Visit 02/27/2018 [facility] I25.10 [facility] heart 8:56a tyler Obando NP disease of [place] Hospitalists coronary artery w/o ang pctrs I35.0 Nonrheumatic aortic (valve) stenosis I10 Essential (primary) hypertension I50.32 Chronic diastolic (congestive) heart failure E11.9 Type 2 diabetes mellitus without complications Office Visit 02/26/2018 8:55a [facility] Humberto Moran, I25.10 [facility] heart tyler Obando MD disease of Hospitalists [place] coronary artery w/o ang pctrs I35.0 Nonrheumatic aortic (valve) stenosis I10 Essential (primary) hypertension I50.32 Chronic diastolic (congestive) heart failure E11.9 Type 2 diabetes mellitus without complications Office Visit 02/25/2018 2:53p [facility] Tristen Hart R07.9 Chest pain, Breonna Patel unspecified I51.7 Cardiomegaly I10 Essential (primary) hypertension Office Visit 02/25/2018 8:55a [facility] Humberto Moran, I25.10 [facility] Assoctyler MD disease of Hospitalists [place] coronary artery w/o ang pctrs I35.0 Nonrheumatic aortic (valve) stenosis I10 Essential (primary) hypertension I50.32 Chronic diastolic (congestive) heart failure E11.9 Type 2 diabetes mellitus without complications Office Visit 02/24/2018 [facility] Philip R07.9 Chest pain, 8:55a Assoctyler, N.P. unspecified Hospitalists I10 Essential (primary) hypertension E11.9 Type 2 diabetes mellitus without complications G47.33 Obstructive sleep apnea (adult) (pediatric) I25.10 [facility] heart disease of [place] coronary artery w/o ang pctrs I35.0 Nonrheumatic aortic (valve) stenosis Office Visit 02/22/2018 10:45a [facility] Jerman Cornejo I47.2 Ventricular Of Yesenia Russell M.D. 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 I10 Essential (primary) hypertension I35.0 Nonrheumatic aortic (valve) stenosis Office Visit 02/10/2018 [facility] Belkis J15.9 Unspecified 9:02a Assoctyler NP bacterial Hospitalists pneumonia I47.2 Ventricular tachycardia I25.10 [facility] disease of [place] coronary artery w/o ang pctrs I10 Essential (primary) hypertension I50.32 Chronic diastolic (congestive) heart failure E11.9 Type 2 diabetes mellitus without complications 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 gout, unspecified site Office Visit 02/09/2018 [facility] Belkis J15.9 Unspecified 9:01a Assoctyler, [employer] SWE[employer] OPERATOR bacterial Hospitalists pneumonia A41.9 Sepsis, unspecified organism I47.2 Ventricular tachycardia E11.9 Type 2 diabetes mellitus without complications I25.10 [facility] heart disease of [place] coronary artery w/o ang pctrs I10 Essential (primary) hypertension I50.32 Chronic diastolic (congestive) heart failure E87.1 Hypo-osmolality and hyponatremia E80.7 Disorder of bilirubin metabolism, unspecified Office Visit 02/08/2018 [facility] Belkis J15.9 Unspecified 9:01a Assoc,tyler Valente, [employer]WE[employer] OPERATOR bacterial Hospitalists pneumonia A41.9 Sepsis, unspecified organism I47.2 Ventricular tachycardia R94.31 Abnormal electrocardiogram [ECG] [EKG] E11.9 Type 2 diabetes mellitus without complications I25.10 [facility] heart disease of [place] coronary artery w/o ang pctrs I10 Essential (primary) hypertension I50.32 Chronic diastolic (congestive) heart failure Office Visit 02/07/2018 [facility] Belkis J15.9 Unspecified 9:01a Assoc,tyler Valente, SYLVAIN bacterial Hospitalists pneumonia A41.9 Sepsis, unspecified organism I47.2 Ventricular tachycardia E11.9 Type 2 diabetes mellitus without complications I25.10 [facility] heart disease of [place] coronary artery w/o ang pctrs I10 Essential (primary) hypertension E87.1 Hypo-osmolality and hyponatremia E80.7 Disorder of bilirubin metabolism, unspecified Office Visit 02/07/2018 10:36a [facility] Jerman Cornejo I47.2 Ventricular Of Yesenia Russell M.D. tachycardia I35.0 Nonrheumatic aortic (valve) stenosis J18.9 Pneumonia, unspecified organism R94.31 Abnormal electrocardiogram [ECG] [EKG] Office Visit 02/06/2018 [facility] J18.9 Pneumonia, 9:00a Assoctyler PA unspecified Hospitalists organism I10 Essential (primary) hypertension E78.5 Hyperlipidemia, unspecified E11.9 Type 2 diabetes mellitus without complications Z79.4 prison (current) use of insulin Office Visit 02/06/2018 3:30p [facility] Internal Debbie Escobedo MD J18.9 Pneumonia, Medicine - [place] unspecified Rd organism Office Visit 11/07/2017 1:20p [facility] Internal Noa Z00.00 En[facility]tr for Medicine - Breonna Fernandez general adult [place] medical exam w/o abnormal findings I10 Essential (primary) hypertension E11.21 Type 2 diabetes mellitus with diabetic nephropathy E78.5 Hyperlipidemia, unspecified R19.5 Other fecal abnormalities Office Visit 10/07/2017 8:45a Orthopedic Jorden M79.645 Pain in left Services Of MD Shira finger(s) C.M.A. 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 (primary) [place] hypertension Office Visit 02/23/2017 11:45a [facility] Jerman Cornejo I10 Essential Of Yesenia Russell M.D. (primary) hypertension I25.118 [facility] heart disease of [place] cor art w oth ang pctrs I35.0 Nonrheumatic aortic (valve) stenosis Office Visit 12/15/2016 3:30p [facility] Internal Noa R07.89 Other chest Raegan Fernandez M.D. pain Rd Office Visit 11/04/2016 2:40p [facility] Internal Noa Z00.00 Encntr for Raegan Fernandez M.D. general adult [place] medical exam w/o abnormal findings I10 Essential (primary) hypertension Office Visit 08/23/2016 2:00p [facility] Internal Noa I10 Essential ( primary) Raegan Fernandez M.D. 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 (primary) [place] hypertension Office Visit 03/04/2016 [facility] Internal Noa I10 Essential 10:00a Raegan Fernandez M.D. (primary) [place] hypertension L40.8 Other psoriasis Office Visit 01/30/2016 10:00a [facility] Jerman Cornejo I10 Essential (primary) Of [place] Russell M.D. hypertension I25.118 Athscl heart disease of [place] cor art w [facility] ang pctrs I35.0 Nonrheumatic aortic (valve) stenosis Office Visit 11/17/2015 9:00a [facility] Haylee Ching, I10 Essential (primary) Of [facility] [place] hypertension I25.118 Athscl heart disease of [place] cor art w ot ang pctrs I35.0 Nonrheumatic aortic (valve) stenosis Office Visit 10/24/2015 3:45p [facility] Jerman Cornejo I25.118 Athscl heart Of [place] Russell M.D. disease of [place] cor art w [facility] ang pctrs I35.0 Nonrheumatic aortic (valve) stenosis Office Visit 09/26/2015 9:45a [facility] Jerman Cornejo I10 Essential (primary) Of [place] Russell M.D. hypertension I25.118 Athscl heart disease of [place] cor art w [facility] ang pctrs R01.1 Cardiac murmur, unspecified Office Visit 09/25/2015 Orthopedic Griselda Gore, M65.4 Radial styloid 3:20p Services Of RPA-C tenosynovitis [Martinez] Office Visit 03/03/2015 [facility] Internal Noa I10 Essential (primary) 9:40a Raegan Fernandez M.D. hypertension [place] R10.31 Right lower quadrant pain Office Visit 01/09/2015 1:00p Pulmonology And Gabriela 327.23 Obstructive Sleep Sleep Services Of MD Howard Apnea Adult & [facility] Pediatric 278.00 Obesity Unspec Office Visit 12/13/2014 9:20a [facility] Internal Pineda Giovana, 789.03 Pain Abdominal Medicine - [employer] Right Lower [place] Quadrant Office Visit 10/11/2014 2:30p [facility] Jerman D. 401.1 Hypertension Of [place] Russell M.D. Benign 414.01 Coronary Atherosclerosis [place] Office Visit 10/09/2014 3:45p Pulmonology And Gabriela 327.23 Obstructive Sleep Sleep Services Of [place] Apnea Adult & [employer] Pediatric 278.00 Obesity Unspec Office Visit 10/09/2014 2:00p [facility] Internal Pineda Akhtar, V72.84 Examination Medicine - [employer] Preoperative Unspec [place] 366.9 Cataract Unspec 250.00 Diabetes Mellitus W/O Compl Type II Or Unspec Controlled 401.1 Hypertension Benign 327.23 Obstructive Sleep Apnea Adult & Pediatric 414.01 Coronary Atherosclerosis [place] Office Visit 08/22/2014 4:00p [facility] Internal Noa V70.0 Examination Raegan Fernandez M.D. General [facility] Routine AT Health Care Facility 401.1 Hypertension Benign 250.00 Diabetes Mellitus W/O Compl Type II Or Unspec Controlled 327.23 Obstructive Sleep Apnea Adult & Pediatric Office Visit 08/07/2014 [facility] Internal Seun Patel, 843.8 Sprains & Strains 2:30p Medicine - [place] [employer] OPER[employer] Hip & Thigh Other Rd Spec Sites Office Visit 02/27/2014 [facility] Internal Noa 401.1 Hypertension Benign 10:40a Raegan Fernandez M.D. [place] Office Visit 01/17/2014 Orthopedic Belkis 727.04 Tenosynovitis Radial 1:15p Services Of Breonna Thorpe Styloid C.M.AGracie Office Visit 09/06/2013 [facility] Jerman Cornejo 414.01 Coronary 9:30a Cardiology Beatriz Russell M.D. Atherosclerosis [place] Zhang 786.05 Shortness Of Breath Office Visit 08/17/2013 3:40p [facility] Internal Noa V70.0 Examination Raegan Fernandez M.D. [facility] Routine AT Health Care Facility 724.3 Sciatica 414.01 Coronary Atherosclerosis [place] 250.02 Diabetes Mellitus W/O Compl Type II Or Unspec Type Uncontrol Office Visit 08/10/2013 1:30p [facility] Nia Bishop, 401.1 Hypertension Of [place] Ravi Benign 786.51 Pain Precordial 414.01 Coronary Atherosclerosis [place] 785.2 Murmur Cardiac Undiagnosed 785.9 Cardiovascular Symptoms Other Office Visit 01/18/2013 8:40a [facility] Internal Noa 401.1 Hypertension Raegan Fernandez M.D. Benign [place] 787.91 Diarrhea V04.81 Need For Prophylactic Vaccination & Inoculation/Influenza Office Visit 10/10/2012 11:00a [facility] Internal Philomena Jay, 786.2 Cough Raegan Glynn M.D., FACP [place] Office Visit 08/11/2012 1:00p [facility] Internal Noa 401.1 Hypertension Raegan Fernandez M.D. Benign [place] 784.0 Headache Office Visit 05/02/2012 3:00p [facility] Internal Noa 401.1 Hypertension Raegan Fernandez M.D. Benign [place] 784.0 Headache Office Visit 04/07/2012 9:40a [facility] Internal Noa V70.0 Examination Raegan Fernandez M.D. [facility] Routine AT Health Care Facility 401.1 Hypertension Benign 785.9 Cardiovascular Symptoms Other Office Visit 03/21/2012 9:00a [facility] Internal Noa 401.1 Hypertension Raegan Fernandez M.D. Benign [place] Office Visit 02/28/2012 2:20p [facility] Internal Marsha Kline, 380.4 Impacted [facility] [place] Office Visit 02/18/2012 1:00p [facility] Internal Noa 401.1 Hypertension Raegan Fernandez M.D. Benign [place] 724.5 Backache Unspec Office 01/03/2012 [facility] Internal Noa V04.81 Need For Prophylactic Visit 2:40p Raegan Fernandez M.D. Vaccination & [place] Inoculation/Influenza 401.1 Hypertension Benign 238.2 Neoplasm Uncertain Skin Office Visit 11/18/2011 2:40p [facility] Internal Noa 401.1 Isidra Fernandez M.D. Benign [place] Office Visit 10/07/2011 11:00a [facility] Internal Noa 401.1 Hypertension Raegan Fernandez M.D. Benign [place] Office Visit 04/21/2011 1:00p DO Not Use Philomena Jay, 786.2 Cough [place] Ravi, FACP Office Visit 08/19/2010 2:45p DO Not Use aMrsha Kline, 466.0 Bronchitis Acute [employer]-[place] N.P. Office Visit 08/04/2010 11:30a DO Not Use Noa 401.1 Hypertension [facility] Benign 272.2 Hyperlipidemia Mixed Office Visit 04/02/2010 DO Not Use Noa 682.0 Cellulitis & 10:15a [place] Fernandez M.D. Abscess Face 401.1 Hypertension Benign 250.00 Diabetes Mellitus W/O Compl Type II Or Unspec Controlled Office Visit 01/08/2010 9:00a DO Not Use Nurse Visit 401.1 Hypertension [facility] A Benign V04.81 Need For Prophylactic Vaccination & Inoculation/Influenza Office Visit 10/07/2009 DO Not Use Marsha Kline, 466.0 Bronchitis Acute 11:30a [place] N.P. Office Visit 09/29/2009 DO Not Use Noa V70.0 Examination 1:15p Yes[place] Fernandez M.D. 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 Mellitus W/O Compl Type II Or Unspec Controlled 401.1 Hypertension Benign 272.0 Hypercholesterolemia Pure V04.81 Need For Prophylactic Vaccination & Inoculation/Influenza Office Visit 02/18/2009 DO Not Use [place], 250.02 Diabetes 2:30p Yesenia Gold M.D. Mellitus W/O Compl Type II Or Unspec Type Uncontrol 753.10 Cystic Kidney Disease Unspec Congenital V04.81 Need For Prophylactic Vaccination & Inoculation/Influenza Office Visit 11/15/2008 DO Not Use [place], 250.00 Diabetes 3:00p Yesenia Gold M.D. Mellitus W/O Compl Type II Or Unspec Controlled 401.1 Hypertension Benign Office Visit 09/06/2008 DO Not Use Marsha Kline, 465.9 URI Upper 3:00p Yes[place] N.P. Respiratory Infections Acute Unspec Sites 462 Pharyngitis Acute Office Visit 08/19/2008 DO Not Use [place], V70.0 Examination 10:45a Yesenia Gold M.D. General Medical Routine AT Health Care Facility 250.00 Diabetes Mellitus W/O Compl Type II Or Unspec Controlled 272.0 Hypercholesterolemia Pure 719.45 Pain Joint Pelvic Region & Thigh 401.1 Hypertension Benign Office Visit 04/29/2008 DO Not Use [place], 250.02 Diabetes 1:30p Yesenia Gold M.D. Mellitus W/O Compl Type II Or Unspec Type Uncontrol 401.1 Hypertension Benign Office Visit 03/27/2008 10:45a DO Not Use Marsha Kline, 461.9 Sinusitis Acute [place] N.P. Unspec Office Visit 03/05/2008 3:00p DO Not Use [place], 250.02 Diabetes Yesenia Gold M.D. Mellitus W/O Compl Type II Or Unspec Type Uncontrol 401.1 Hypertension Benign Office Visit 12/12/2007 DO Not Use [place], 715.94 Osteoarthrosis 3:00p Yesenia Gold M.D. Unspec Genlzd Or Localized Hand 250.02 Diabetes Mellitus W/O Compl Type II Or Unspec Type Uncontrol 401.1 Hypertension Benign Office Visit 10/17/2007 DO Not Use [place], 250.00 Diabetes 9:45a Yesenia Gold M.D. Mellitus W/O Compl Type II Or Unspec Controlled 401.1 Hypertension Benign Office Visit 10/12/2007 12:15p DO Not Use Philomena Jay, 466.0 Bronchitis Acute [place] Ravi, FACP Office Visit 08/16/2007 2:45p DO Not Use [place], V70.0 Examination Yesenia Gold M.D. 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 Mellitus W/O Compl Type II Or Unspec Controlled 401.1 Hypertension Benign Office Visit 03/29/2007 DO Not Use [place], 250.02 Diabetes 3:15p Yesenia Gold M.D. Mellitus W/O Compl Type II Or Unspec Type Uncontrol 401.1 Hypertension Benign 719.46 Pain Joint Lower Leg Office Visit 03/08/2007 DO Not Use [place], 250.00 Diabetes 2:30p Yesenia Gold M.D. Mellitus W/O Compl Type II Or Unspec Controlled 401.1 Hypertension Benign Plan of Treatment Future Appointment(s):11/09/2018 1:20 pm - Noa Fernandez M.D. at [facility] Internal Medicine [facility]03/20/2018 - Noa Fernandez M.D.R60.0 Localized edemaComments:You will need the compression stocking for any long car rideStart cardiac [id number] Essential (primary) hypertensionComments:Stay on the metoprololFollow up:AWV in October, cancel the appt with me in .9 Type 2 diabetes mellitus without complicationsComments:Your A1C in [place] on 03/[address] Lou
--- OUTSIDE RECORDS SUMMARY | 2018-03-30 20:39 | XMS REPORT | Continuity of Care Document ---
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 needed Glucocom Blood 04/05 Active Kit W/Device 1unit for use [facility] Glucose Monitoring s once daily Cotton, System - meter M.D. per plan Dx E11.9, Z79.4 Pen [place] 07/08" 10/15 Active Misc 31G X 5 [...] 01/18/2013 times a day M.DGracie, FACP Pen [place] Mini 09/20/2012 Hx 360unit for use qid dx Noa 31GA. - s 250.00 Jim, 10/16/2015 M.DGracie Aldactazide 05/30/2012 Hx Tablets 25-2 90tabs 1 tab PO qd Noa - 5mg [place], 08/09/2012 M.D. Avapro 05/03/2012 Hx Tablets 300m 90tabs 1 by mouth once Noa - g daily [place], 12/26/2012 M.D. Hydrochlorothiazi 05/03/2012 Hx Tablets 25mg 90tabs 1 po qd Noa de - [place], 05/30/2012 M.D. Labetalol HCL 04/07/2012 Hx Tablets 100m 180tabs 2 po bid 401.1 Noa - g [place], 05/03/2012 M.D. Metoprolol 03/21/2012 Hx Tablets ER 50mg 30tabs take 1 PO qd 401.1 Noa Succinate ER - 24HR [place], 04/07/2012 M.D. Metoprolol 02/18/2012 Hx Tablets ER 25mg 30tabs 1 po qd 401.1 Noa Succinate ER - 24HR [place], 03/21/2012 M.D. Viagra 01/13/2012 Hx Tablets 50mg 18tabs take 1 or 2 Noa - tablets once [place], 11/11/2013 daily as needed M.D. Fluticasone 04/21/2011 [...] tablet Noa - 24HR by mouth every [place], 03/10/2018 day M.D. Zithromax Z-Dani 08/19/2010 Hx Tablets 250m 1Pack two po Noa - g initially then [place], 08/29/2010 one po daily M.D. Lipitor 08/04/2010 Hx Tablets 20mg 90tabs 1 by mouth once Noa - daily [place], 08/17/2013 M.D. Cephalexin 04/02/2010 Hx Capsules 500m 28caps 1 tablet 4 682.0 Noa - g times daily for [place], 08/04/2010 7 days M.DGracie Losartan 12/16/2009 Hx Tablets 100- 90tabs take 1 tablet Noa Potassium/Hydroch - 25mg by mouth every Cotton, lorothiazide 05/03/2012 day M.DGracie Levemir 09/25/2009 Hx Solution 100U 23pens 52 units Noa - nit/ subcutaneously [place], 08/06/2010 ML at bedtime M.DGracie Diovan HCT 09/25/2009 Hx Tablets 320- 90tabs 1 tablet daily Noa - 25mg [place], 12/16/2009 M.DGracie Felodipine 09/25/2009 Hx Tablets ER 10mg 90tabs 1 tablet by Noa - 24HR mouth once [place], 04/12/2011 daily M.DGracie Lipitor 09/25/2009 Hx Tablets 10mg 90tabs 1 tablet every Noa - night [place], 08/04/2010 M.DGracie Asa 09/25/2009 Hx 81mg 30units 1 tablet daily Noa - [place], 09/28/2009 M.DGracie Econazole Nitrate 09/25/2009 Hx Cream 1% 45g apply to Noa - affected areas [place], 01/08/2010 bid x 2-3 wks M.DGracie Hydrocortisone 09/25/2009 Hx Cream 0.2% 30g topical twice Noa Valerate - daily to area [place], 01/08/2010 as needed M.DGracie Viagra 09/25/2009 Hx Tablets 50mg 18tabs Take 1 Or 2 Noa - Tablets Once [place], 04/12/2011 Daily as Needed M.D. Novolog Penfill [...] tablet Noa - mg by mouth twice [place], 08/07/2013 daily M.D. Levitra Hx Tablets Unknown - 10/07/2011 Warfarin Sodium Hx Tablets 10mg 1 po qd Unknown - 02/18/2012 Levemir Flexpen Hx Solution 100U inject 66 units Unknown - Pen-Inject nit/ under the skin 09/27/2015 ML at bedtime Eplerenone Hx Tablets 25mg 180tabs take 2 tablets Noa - by mouth every Cotton, 08/23/2016 day M.D. Cephalexin Hx Capsules 500m [facility], Gretta Yancey MD 09/23/2017 Cefpodoxime Hx [...] CPT Code Status Date Vaccine Lot # [id number] Given 02/02/2018 Fluzone High Dose 55330 Given 01/03/2018 Fluzone High Dose Q2039 Given 01/20/2016 Flu Vaccine NOS 06833 Given 01/27/2015 Fluzone High Dose Q2037 Given 10/09/2014 Fluvirin Im 3Yrs And Older 05819 Given 09/03/2014 Pneumococcal Conjugate Vaccine 13 Valent For [id number] Intramuscular Use 45546 Given 01/18/2013 Flu Vaccine Split Virus Preservative Free For [id number] Indiv 3Yr Older Q2038 Given 01/03/2012 Fluzone Vaccine [id number] 09229 Given 01/08/2010 Influenza Virus 3Yrs & Over 74446 Given 06/10/2009 Influenza Virus Vaccine, Pandemic Formulation 47675 Given 02/18/2009 Influenza Virus 3Yrs & Over 85758 Given 08/16/2007 Zoster (Zostavax) Vital Signs Date Vital Result Comment 03/14/2018 1:21pm Height 70 inches 5'10" Weight [...] Date Facility Test Result H/L Range Note CBC Auto Diff 02/24/2018 [facility] White Blood 6.6 10^3/uL N 3.5-10.[address] [place] [address] [phone] Red Blood Count 3.50 10^6/uL Low 4.00-5.40 [...] Nucleated Red Blood Cells % 0 Laboratory 02/24/2018 [facility] B-Type 118 pg/mL High <=100 test finding [address] [place] [address] Peptide BNP [phone] Inr/Protime 02/24/2018 [facility] Inr 0.91 N 0.77-1.[address] [place] [address] [phone] Laboratory 02/24/2018 [facility] Partial Thrombo 30.2 N 26.0- 36.3 test finding [address] [place] [address] [phone] D Dimer Quantitative 293 ng/mL High Less Than 230 1 Lactic Acid 1.9 mmol/L N 0.5-2.0 2 Comp Metabolic Panel 02/24/2018 [facility] Sodium 132 mmol/L Low 135-[address] [place] [address] [phone] Potassium 3.6 mmol/L N 3.5-5.0 Chloride 100 [...] Non- 74.7 >60 Egfr 90.3 >60 3 CKMB 02/24/2018 [facility] CKMB ng/mL 2.3 ng/mL N 0.6-6.[address] [place] [address] [phone] Laboratory test 02/24/2018 [facility] Magnesium 1.5 mg/dL Low 1.9-2.[address] [place] [address] [phone] Troponin-I (TnI) 0.03 ng/mL <0.04 Laboratory test 02/22/2018 [facility] Surgical SEE RESULT 4 , [address] [place] [address] [phone] Sputum Culture 02/06/2018 [facility] Sputum Culture SEE RESULT 6 & Sensitiv [address] [place] [address] [phone] CBC Auto Diff 02/06/2018 [facility] White Blood 11.7 High 3.5- [address] Count 10^3/uL 0.8 [place] [address] [phone] Red Blood Count 4.11 10^6/uL N 4.00-5.40 [...] Blood Cells % 0 Laboratory test 02/06/2018 [facility] Lactic Acid 0.9 mmol/L N 0.5-2.0 7 finding [address] [place] [address] [phone] C Reactive Protein 139.24 mg/L High <8.01 Troponin-I (TnI) 0.06 ng/mL High <0.04 8 Comp Metabolic Panel 02/06/2018 [facility] Sodium 129 mmol/L Low 135-145 [address] [place] [address] [phone] Potassium 3.9 mmol/L N 3.5-5.0 Chloride 94 [...] Egfr 76.5 >60 9 Laboratory test 02/06/2018 [facility] Procalcitonin 0.8 ng/mL High <0.6 [address] [place] [address] [phone] Blood Culture SEE RESULT BELOW 11 Rapid Influenza 02/05/2018 [facility] Influenza A NEGATIVE Negative 12 A & B Molecular [address] [place] [address] [phone] Influenza B Molecular NEGATIVE Negative Laboratory 02/05/2018 [facility] Rapid SEE RESULT 13 test finding [address] [place] [address] Antigen [phone] Laboratory 02/05/2018 [facility] Rapid Strep Negative Negative 14 test finding [address] [place] [address] [phone] Laboratory 02/05/2018 [facility] Rapid Strep A SEE RESULT 15 test finding [address] [place] [address] [phone] Laboratory 01/05/2018 [facility] Surgical SEE RESULT 16, 17 test finding [address] [place] [address] [phone] Laboratory 09/29/2017 [facility] Surgical SEE RESULT 18, 19 test finding [address] Pathology BELOW [place], [place] [address] [phone] Wound 09/29/2017 [facility] Wound/Misc SEE RESULT 20 Culture/Sensi [address] [place] [address] Stain [phone] Laboratory 09/29/2017 [facility] Anaerobic SEE RESULT 21 test finding [address] Culture BELOW [place], [place] [address] [phone] CBC Auto Diff 09/23/2017 [facility] White Blood 4.8 10^3/uL N 3.5-10.[address] Count [place], [place] [address] [phone] Red Blood Count 4.03 10^6/uL N 4.0-5.4 [...] Blood Cells % 0 Laboratory test 09/23/2017 [facility] C Reactive 1.50 mg/L N < 5.00 22 finding [address] [facility] [place] [address] [phone] Erythrocyte Sed Rate 14 mm/Hr N 0-40 Laboratory test 09/12/2017 [facility] Uric Acid 6.8 mg/dL N 4.4-7.6 finding [address] [place] [address] [phone] C Reactive Protein 54.95 mg/L High < 5.00 23 Erythrocyte Sed Rate 23 mm/Hr N 0-40 Lyme Disease Serology Positive Negative 24 Rheumatoid Factor < 10 IU/mL N <15 Lyme Western 09/12/2017 [facility] Lyme Disease Negative Negative Blot [address] [facility] [place] [address] [phone] Lyme Disease IgG Bands Present p93,p39 kDa Lyme Disease IgM Ab WB Negative Negative Lyme Disease IgM Bands Present p23 kDa Lyme Disease Interpretation See Comment 25 Laboratory test 09/12/2017 [facility] Hemoglobin A1c 7.9 High 5-7 finding Lipid Profile 09/01/2017 [facility] Triglycerides 102 mg/dL 26 (Trig/Chol/HDL) [address] [place] [address] [phone] Cholesterol 133 mg/dL 27 HDL Cholesterol 54.7 mg/dL 28 LDL Cholesterol 58 mg/dL 29 Comp Metabolic Panel 09/01/2017 [facility] Sodium 138 mmol/L Low 139-145 [address] [place] [address] [phone] Potassium 4.2 mmol/L N 3.5-5.0 Chloride 102 [...] Egfr 84.1 >60 30 Urine Microalbumin 09/01/2017 [facility] Ur Microalbumin 187.4 mg/L Random [address] (mg/L) [place] [address] [phone] Urine Creatinine 126.02 mg/dL Urine Microalbumin/Creatinine 148.7 ug/mg High <31 Liver Function 09/01/2017 [facility] Direct 0.30 mg/dL High 0.03-0.[address] [place] [address] [phone] Indirect Bilirubin 1.3 mg/dL High 0.3-1.0 Laboratory test 09/01/2017 [facility] Vitamin B12 554 pg/mL N 180-914 [address] [place] [address] [phone] Laboratory test 09/01/2017 [facility] PSA Diagnostic 0.596 0- 4.0 [address] ng/[place] [address] [phone] Laboratory test 12/15/2016 [facility] D Dimer < 200 N Less Than [address] Quantitative ng/mL 230 [place] [address] [phone] Basic Metabolic 12/15/2016 [facility] Sodium 135 N 133-[address] mmol/[place] [address] [phone] Potassium 4.3 mmol/L N 3.5-5.0 Chloride 100 mmol/L Low 101-111 Co2 Carbon Dioxide 31 mmol/L N 22-32 Anion Gap 4 mmol/L N 2-11 Glucose 140 mg/dL High 70-100 Blood Urea Nitrogen 26 mg/dL High 6-24 Creatinine 1.06 mg/dL N 0.67-1.17 BUN/Creatinine Ratio 24.5 High 8-20 Calcium 9.4 mg/dL N 8.6-10.3 Egfr Non- 67.7 N >60 Egfr 87.1 N >60 34 Lipid Profile 09/16/2016 [facility] Triglycerides 62 mg/dL N 35 (Trig/Chol/HDL) [address] [place] [address] [phone] Cholesterol 116 mg/dL N 36 HDL Cholesterol 51.2 mg/dL N 37 LDL Cholesterol 52 mg/dL N 38 Comp Metabolic Panel 09/16/2016 [facility] Sodium 136 mmol/L N 133-145 [address] [place] [address] [phone] Potassium 4.2 mmol/L N 3.5-5.0 Chloride 101 [...] 84.4 N >60 39 Urine Microalbumin 08/23/2016 [facility] Urine Creatinine 96.55 mg/dL N Random [address] [place], [place] [address] [phone] Ur Microalbumin (mg/L) 52.6 mg/L N Urine Microalbumin/Creatinine 54.4 ug/mg High <31 Basic Metabolic 03/16/2016 [facility] Sodium 132 mmol/L Low 133-[address] [place] [address] [phone] Potassium 4.8 mmol/L N 3.5-5.0 Chloride 98 [...] N >60 40 CBC Auto Diff 01/15/2016 [facility] White Blood 8.0 10^3/uL N 3.5-10.[address] [place] [address] [phone] Red Blood Count 4.19 10^6/uL N 4.0-5.4 [...] % 0.1 N Comp Metabolic Panel 01/15/2016 [facility] Sodium 134 mmol/L N 133-145 [address] [place] [address] [phone] Potassium 4.2 mmol/L N 3.5-5.0 Chloride 96 [...] 88.1 N >60 41 Laboratory test 01/15/2016 [facility] Uric Acid 6.5 mg/dL N 4.4-7.6 finding [address] [place] [address] [phone] Arterial Blood 11/10/2015 [facility] PH Arterial 7.41 N 7.35- 7.45 42 Gas [address] [place] [address] [phone] Pco2 Arterial 43 mmHg N 35-45 Po2 Arterial 79 mmHg Low 80-100 O2 Saturation Arterial 97.6 % N 95-98 Base Excess Arterial 2.3 High -2.0-2.0 43 Hco3 Arterial 26.7 mmol/L N 19-31 Arterial Blood Gas 11/10/2015 [facility] PH Arterial 7.38 N 7.35-7.45 [address] [place] [address] [phone] Pco2 Arterial 50 mmHg High 35-45 O2 Saturation Arterial 76.7 % Low 95-98 Base Excess Arterial 3.6 High -2.0-2.0 44 Hco3 Arterial 27.2 mmol/L N 19-31 Po2 Arterial 43 mmHg Low 80-100 Venous Blood Gas 11/10/2015 [facility] Venous Blood pH 7.38 N 7.33-7.[address] [place] [address] [phone] Venous Pco2 50 mmHg N 41-51 Venous Po2 43 mmHg N 35-45 Venous O2 Saturation 76.7 % N 70-80 Venous Blood Base Excess 3.6 N 0-4 45 Venous Bicarbonate Hco3 27.2 mmol/L N 24-28 Venous Blood Gas 11/10/2015 [facility] Venous Blood pH 7.37 N 7.33-7.[address] [place] [address] [phone] Venous Pco2 48 mmHg N 41-51 Venous Po2 41 mmHg N 35-45 Venous O2 Saturation 77.2 % N 70-80 Venous Blood Base Excess 1.8 N 0-4 46 Venous Bicarbonate Hco3 25.8 mmol/L N 24-28 Protein 10/30/2015 [facility] Total 6.2 Abnormal 6.3 - Electrophoresis [address] [facility] Protein(Pep) g/dL 7.9 [place] [address] [phone] Albumin 3.3 g/dL Abnormal 3.4-4.7 Alpha-1 Globulin 0.2 g/dL N 0.1-0.3 Alpha-2 Globulin 0.8 g/dL N 0.6-1.0 Beta Globulin 0.8 g/dL N 0.7-1.2 Gamma Globulin 1.0 g/dL N 0.6-1.6 Albumin/Globulin Ratio 1.15 N Impression See Comment N 47 Iron & Iron Binding 10/30/2015 [facility] Iron 87 g/dL N 50- [address] [place] [address] [phone] Unsaturated Iron Binding 262 g/dL N Total Iron Binding Capacity 349 g/dL N 250-450 % Iron Saturation 25 % N 15-55 Basic Metabolic Panel 10/30/2015 [facility] Sodium 133 mmol/L N 133-[address] [place] [address] [phone] Potassium 4.4 mmol/L N 3.5-5.0 Chloride 99 mmol/L Low 101-111 Co2 Carbon Dioxide 29 mmol/L N 22-32 Anion Gap 5 mmol/L N 2-11 Glucose 111 mg/dL High 70-100 Blood Urea Nitrogen 20 mg/dL N 6-24 Creatinine 1.05 mg/dL N 0.67-1.17 BUN/Creatinine Ratio 19.0 N 8-20 Calcium 9.2 mg/dL N 8.6-10.3 Egfr Non- 68.7 N >60 Egfr 88.3 N >60 48 Inr/Protime 10/30/2015 [facility] Inr 0.95 N 0.89-1.[address] [place] [address] [phone] CBC Auto Diff 10/30/2015 [facility] White Blood 3.5 10^3/uL N 3.5-10.[address] [place] [address] [phone] Red Blood Count 4.06 10^6/uL N 4.0-5.4 [...] Cells % 0 N Pre Cath 10/30/2015 [facility] Partial Thrombo 30.8 N 26.0- 36.[address] [place] [address] [phone] Order 10/23/2015 [facility] Stress Test, <pending> Exercise Nuclear Lipid 08/26/2015 [facility] Triglycerides 100 mg/dL N [address] (Trig/Chol/[place] [address] DL) [phone] Cholesterol 126 mg/dL N 50 HDL Cholesterol 51.1 mg/dL N 51 LDL Cholesterol 55 mg/dL N 52 Comp Metabolic Panel 08/26/2015 [facility] Sodium 135 mmol/L N 133-[address] [place] [address] [phone] Potassium 4.1 mmol/L N 3.5-5.0 Chloride 100 [...] 89.3 N >60 53 Urine Microalbumin 08/26/2015 [facility] Ur Microalbumin 89.0 mg /L N Random [address] (mg/L) [place] [address] [phone] Urine Creatinine 151.94 mg/dL N Urine Microalbumin/Creatinine 58.5 ug/mg High <31 Laboratory test 08/26/2015 [facility] TSH (Thyroid 1.79 ?IU/mL N 0.34-5.60 [address] Stim [place]orm) [place] [address] [phone] CBC No Diff 08/26/2015 [facility] White Blood 5.2 10^3/uL N 3.5-10.[address] [place] [address] [phone] Red Blood Count 4.03 10^6/uL N 4.0-5.4 Hemoglobin 12.7 g/dL Low 14.0-18.0 Hematocrit 38 % Low 42-52 Mean Corpuscular Volume 94 fL N 80-94 Mean Corpuscular Hemoglobin 32 pg High 27-31 Mean Corpuscular HGB Conc 34 g/dL N 31-36 Red Cell Distribution Width 14 % N 10.5-15 Platelet Count 182 10^3/uL N 150-450 Mean Platelet Volume 9 um3 N 7.4-10.4 Laboratory test 08/26/2015 [facility] Vitamin B12 344 pg/mL N 180-914 [address] [place] [address] [phone] CBC Auto Diff 03/06/2015 [facility] White Blood 4.9 10^3/uL N 4.8-10.[address] [place] [address] [phone] Red Blood Count 4.30 10^6/uL N 4.0-5.4 [...] % 0.1 N Comp Metabolic Panel 03/06/2015 [facility] Sodium 135 mmol/L N 133-145 [address] [place] [address] [phone] Potassium 4.3 mmol/L N 3.5-5.0 Chloride 99 [...] 90.3 N >60 57 Laboratory test 12/17/2014 [facility] PSA Diagnostic 0.588 N 0 -4.0 58 finding [address] [facility] ng/[place] [address] [phone] Lipid Profile 12/17/2014 [facility] Triglycerides 83 mg/dL N 59, 60 (Trig/Chol/HDL) [address] [place] [address] [phone] Cholesterol 120 mg/dL N 61 HDL Cholesterol 49.3 mg/dL N 62 LDL Cholesterol 54 mg/dL N 63 Laboratory test 12/17/2014 [facility] Lipase 22 U/L N 11.0- 82.0 64 finding [address] [place] [address] [phone] Comp Metabolic 12/17/2014 [facility] Sodium 136 mmol/L N 133- 145 Panel [address] [place] [address] [phone] Potassium 4.6 mmol/L N 3.5-5.0 Chloride 99 [...] 91.6 N >60 65 CBC Auto 12/17/2014 [facility] White Blood 3.5 10^3/uL Low 4.8 -10.[address] [place] [address] [phone] Red Blood Count 4.26 10^6/uL N 4.0-5.4 [...] Cells % 0.1 N Urine Microalbumin 12/17/2014 [facility] Ur Microalbumin 24.0 mg /L N Random [address] (mg/L) [place] [address] [phone] Urine Creatinine 121.61 mg/dL N Urine Microalbumin/Creatinine 19.7 ug/mg N <31 Urine Microalbumin 12/13/2014 [facility] Ur Microalbumin 18.0 mg /L N Random [address] (mg/L) [place], [place] [address] [phone] Urine Creatinine 40.12 mg/dL N Urine Microalbumin/Creatinine 44.8 ug/mg High <31 Ua Routine 12/13/2014 [facility] Ua Specific [place] 1.005 Ua PH 5 Ua Color yellow Ua Appera clear Ua WBC negative Ua Protein negative Ua Glucose 2000+++ Ua Ketones negative Ua Bilirubin negative Ua Urobilinogen normal Ua Nitrite negative Ua Occult Blood negative Laboratory test 10/16/2014 [facility] Point of Care 253 mg/dL High 74-106 [address] [place] [address] [phone] Laboratory test 10/16/2014 [facility] Point of Care 263 mg/dL High 74-106 [address] [place] [address] [phone] Laboratory test 10/07/2014 [facility] Surgical SEE [address] [place] [address] BELOW [phone] Urine 01/31/2014 [facility] Ur Microalbumin 65.0 mg/L N Microalbumin [address] (mg/L) Random [place], [place] [address] [phone] Urine Creatinine 162.43 mg/dL N Urine Microalbumin/Creatinine 40.0 High Less Than 31 Comp Metabolic 01/31/2014 [facility] Sodium 131 mmol/L Low 133 -145 [address] [place], [place] [address] [phone] Potassium 4.1 mmol/L N 3.7-5.6 Chloride 96 [...] 89.5 N >60 70 Lipid Profile 01/31/2014 [facility] Triglycerides 80 mg/dL N 71 (Trig/Chol/HDL) [address] [place], [place] [address] [phone] Cholesterol 125 mg/dL N 72 HDL Cholesterol 66.1 mg/dL N 73 LDL Cholesterol 43 mg/dL N 74 Liver Function 01/31/2014 [facility] Direct 0.30 mg/dL High 0.03-0.[address] [place] [address] [phone] Indirect Bilirubin 1.5 mg/dL High 0.3-1.0 Laboratory test 01/08/2014 [facility] PSA Diagnostic 0.589 N 0 -4.0 [address] ng/[place] [address] [phone] Laboratory test 02/28/2013 [facility] Luteinizing 12.11 High 2 -[address] Hormone miu/[place] [address] [phone] Testosterone Free 02/28/2013 [facility] Free 14 ng/dL 9-30 76 & Total [address] [place] [address] ng/dl [phone] Testosterone 460 ng/dL 240-950 77 Laboratory test 02/23/2013 [facility] Vitamin B12 406 pg/mL 180-914 [address] [place], [place] [address] [phone] Liver Function 02/23/2013 [facility] Direct 0.2 mg/dL 0.1- 0.[address] [place] [address] [phone] Indirect Bilirubin 1.3 mg/dL High 0.3-1.0 Lipid Profile 02/23/2013 [facility] Triglycerides 46 mg/dL 40 -200 (Trig/Chol/HDL) [address] [place] [address] [phone] Cholesterol 120 mg/dL Less than 200 HDL Cholesterol 51 mg/dL 40-60 79 Cholesterol/HDL Ratio 2.4 Average 1-4.44 LDL Cholesterol 59.8 Less Than 100 80 Comp Metabolic Panel 02/23/2013 [facility] Sodium 135 mmol/L 133-[address] [place] [address] [phone] Potassium 4.2 mmol/L 3.5-5.0 Chloride 100 mmol/L [...] Egfr 93.9 >60 81 Urine Microalbumin 02/23/2013 [facility] Ur Microalbumin 47.0 mg /L [address] (mg/L) [place] [address] [phone] Urine Creatinine 365.4 mg/dL Urine Microalbumin/Creatinine 12.9 Less Than 31 Laboratory test 01/24/2013 [facility] Stool Culture (SEE NOTE) [address] [place] [address] [phone] O&P Ova & 01/24/2013 [facility] Ova Parasite (SEE NOTE) 84 Parasites Full [address] [place] [address] [phone] Stool For Blood 01/24/2013 [facility] Stool Occult (SEE NOTE) [address] Blood [place], [place] [address] [phone] Laboratory test 01/24/2013 [facility] O P: (SEE NOTE) [address] Giardia/[place] [address] or Screen [phone] Laboratory test 01/02/2013 [facility] PSA Diagnostic 0.49 ng/mL 0-4.0 [address] [place] [address] [phone] Basic Metabolic 09/08/2012 [facility] Sodium 138 mmol/L 133- [address] 5 [place] [address] [phone] Potassium 4.3 mmol/L 3.5-5.0 Chloride 103 mmol/L 101-111 Co2 Carbon Dioxide 31.0 mmol/L 22-32 Anion Gap 4.0 mmol/L 2-11 Glucose 97 mg/dL 70-100 Blood Urea Nitrogen 22 mg/dL 6-24 Creatinine 1.10 mg/dL 0.50-1.40 BUN/Creatinine Ratio 20.0 8-20 Calcium 9.6 mg/dL 8.1-9.9 Egfr Non- 65.6 >60 Egfr 84.4 >60 88 Laboratory test 09/08/2012 [facility] Erythrocyte Sed 10 mm/Hr 0-[address] Rate [place], [place] [address] [phone] Basic Metabolic 05/03/2012 [facility] Sodium 133 mmol/L 133- [address] [place] [address] [phone] Potassium 4.5 mmol/L 3.5-5.0 Chloride 98 mmol/L Low 101-111 Co2 Carbon Dioxide 30.0 mmol/L 22-32 Anion Gap 5.0 mmol/L 2-11 Glucose 178 mg/dL High 70-100 Blood Urea Nitrogen 15 mg/dL 6-24 Creatinine 1.00 mg/dL 0.50-1.40 BUN/Creatinine Ratio 15.0 8-20 Calcium 9.3 mg/dL 8.1-9.9 Egfr Non- 73.2 >60 Egfr 94.2 >60 89 Comp Metabolic Panel 02/11/2012 [facility] Sodium 137 mmol/L 133-145 [address] [place] [address] [phone] Potassium 4.5 mmol/L 3.5-5.0 Chloride 100 mmol/L [...] 1-3 Total Bilirubin 2.0 mg/dL High 0.1-1.0 90 Alkaline Phosphatase 75 U/L 30-110 Alt 23 U/L 14-54 Ast 21 U/L 12-42 Egfr Non- 65.6 >60 Egfr 84.4 >60 91 Lipid Profile 02/11/2012 [facility] Triglycerides 143 mg/dL 40-200 (Trig/Chol/HDL) [address] [place] [address] [phone] Cholesterol 129 mg/dL Less than 200 92 HDL Cholesterol 56 mg/dL 40-60 93 Cholesterol/HDL Ratio 2.3 AVERAGE 1-4.44 LDL Cholesterol 44.4 mg/dL Less Than 100 Liver Function 02/11/2012 [facility] Direct Bilirubin 0.3 mg/dL 0.1-0.5 Panel [address] [place] [address] [phone] Indirect Bilirubin 1.7 mg/dL High 0.3-1.0 Laboratory test 02/11/2012 [facility] Vitamin B12 378 pg/mL 180-914 finding [address] [place] [address] [phone] TSH (Thyroid Stimulating Horm) 0.74 MIU/ML 0.34-5.60 Laboratory test 02/11/2012 [facility] PSA Diagnostic 0.67 NG/ML 0-4.[address] [place] [address] [phone] Urine 02/11/2012 [facility] Ur Microalbumin 113.0 mg/L [address] (Mg/L) [place] [address] [phone] Urine Creatinine 165.6 mg/dL Urine Microalbumin/Creatinine 68.2 UG/MG High Less Than 31 CBC Auto Diff 10/21/2011 [facility] White Blood 4.1 CUMM Low 4.8-10.[address] [place] [address] [phone] Red Cell Count 4.36 CUMM Low 4.6-6.2 [...] 0.1 0-0.6 Abs Basophils 0 0-0.2 95 Lipid Profile (Trig/Chol/HDL) 09/10/2011 Triglyceride 70 mg/dL 40-200 Cholesterol 117 mg/dL Less Than 200 96 High Density Lipoprotein 38 mg/dL Low 40-60 97 Cholesterol/HDL Ratio 3.08 AVERAGE 1-4.97 Low Density Lipoprotein 65 mg/dL Less Than 100 98 Comp Metabolic Panel 09/10/2011 Sodium 138 mmol/L 135-145 Potassium 4.1 mmol/L 3.5-5.0 Chloride 101 mmol/L 101-111 Co2 (Carbon Dioxide) 30.0 mmol/L 22-32 Anion Gap 7.0 mmol/L 2-11 99 Glucose 78 mg/dL 70-100 BUN 12 mg/dL 6-24 Creatinine 1.1 mg/dL 0.50-1.40 One Over Creatinine 0.90 BUN/Creatinine Ratio 10.9 8-20 Calcium 9.5 mg/dL 8.1-9.9 Total Protein 6.0 GM/DL Low 6.2-8.1 Albumin 3.6 GM/DL 3.2-5.2 Globulin 2.4 GM/DL 2-4 Albumin/Globulin Ratio 1.5 1-3 Bilirubin Total 1.1 mg/dL 0.4-1.5 100 Alkaline Phosphatase 74 U/L 39-117 Alt (SGPT) 20 U/L 17-63 Ast (Sgot) 21 U/L 12-42 eGFR Non- 65.8 > 60 eGFR 84.6 > 60 101 Urine Microalbumin Random 09/10/2011 Microalbumin (MG/L) 61.0 mg/L Urine Creatinine 214.2 mg/dL Rodolfo Alb/Creatinine Ratio 28.5 UG/MG Less Than 30 102 CBC Auto Diff 09/10/2011 White Blood Count [...] Eosinophils 0.1 0-0.6 Abs Basophils 0 0-0.2 CBC Auto Diff 08/29/2011 [facility] White Blood 4.3 CUMM Low 4.8-10.[address] [place] [address] [phone] Red Cell Count 4.29 CUMM Low 4.6-6.2 [...] 0-0.6 Abs Basophils 0.1 0-0.2 Laboratory test 08/29/2011 [facility] Myoglobin 63.90 17.4- 105.[address] NG/[place] [address] [phone] Laboratory test 08/29/2011 [facility] Troponin-I 0.07 High 0- 0.06 [address] NG/[place] [address] [phone] CPK (Creatine Kinase) 180 U/L 0-200 CKMB 08/29/2011 [facility] CKMB In NG/ML 3.5 NG/ML 0.3-4.0 [address] [place] [address] [phone] % CKMB 2 %MB 0-9 104 Laboratory test 08/29/2011 [facility] BNP Evaluatr 24.0 pg/mL 0-100 finding [address] [place] [address] [phone] Comp Metabolic 08/29/2011 [facility] Sodium 137 mmol/L 135- 145 Panel [address] [place] [address] [phone] Potassium 3.5 mmol/L 3.5-5.0 Chloride 100 mmol/L Low 101-111 Co2 (Carbon Dioxide) 24.0 mmol/L 22-32 Anion Gap 13.0 mmol/L High 2-11 105 Glucose 168 mg/dL High 70-100 BUN 19 mg/dL 6-24 Creatinine 0.8 mg/dL 0.50-1.40 One Over Creatinine 1.25 BUN/Creatinine Ratio 23.8 High 8-20 Calcium 9.2 mg/dL 8.1-9.9 Total Protein 6.7 GM/DL 6.2-8.1 Albumin 3.8 GM/DL 3.2-5.2 Globulin 2.9 GM/DL 2-4 Albumin/Globulin Ratio 1.3 1-3 Bilirubin Total 1.3 mg/dL 0.4-1.5 106 Alkaline Phosphatase 77 U/L 39-117 Alt (SGPT) 20 U/L 17-63 Ast (Sgot) 20 U/L 12-42 eGFR Non- 95.0 > 60 eGFR 122.2 > 60 107 Comp Metabolic Panel 10/07/2010 [facility] Sodium 134 mmol/L Low 135-[address] [place] [address] [phone] Potassium 4.5 mmol/L 3.5-5.0 Chloride 99 mmol/L Low 101-111 Co2 (Carbon Dioxide) 30.0 mmol/L 22-32 Anion Gap 5.0 mmol/L 2-11 108 Glucose 254 mg/dL High 70-100 BUN 16 mg/dL 6-24 Creatinine 0.90 mg/dL 0.50-1.40 One Over Creatinine 1.10 BUN/Creatinine Ratio 17.8 8-20 Calcium 9.0 mg/dL 8.1-9.9 Total Protein 5.9 GM/DL Low 6.2-8.1 Albumin 3.8 GM/DL 3.2-5.2 Globulin 2.1 GM/DL 2-4 Albumin/Globulin Ratio 1.8 1-3 Bilirubin Total 2.4 mg/dL High 0.4-1.5 109 Alkaline Phosphatase 76 U/L 39-117 Alt (SGPT) 24 U/L 17-63 Ast (Sgot) 23 U/L 12-42 eGFR Non- 83.2 > 60 eGFR 107.0 > 60 110 Urine Microalbumin 10/07/2010 [facility] Microalbumin 68.0 mg/L Random [address] (MG/L) [place] [address] [phone] Urine Creatinine 146.00 mg/dL Rodolfo Alb/Creatinine Ratio 46.5 UG/MG High Less Than 30 111 Lipid Profile 10/07/2010 [facility] Triglyceride 95 mg/dL 40- 200 (Trig/Chol/HDL) [address] [place], [place] [phone] Cholesterol 130 mg/dL Less Than 200 112 High Density Lipoprotein 52 mg/dL 40-60 113 Cholesterol/HDL Ratio 2.50 AVERAGE 1-4.97 Low Density Lipoprotein 59 mg/dL Less Than 100 114 Laboratory test 05/14/2010 [facility] Vitamin B12 304 pg/mL 180-910 finding [address] [place] [address] [phone] Lipid Profile 05/14/2010 [facility] Triglyceride 91 mg/dL 40- 200 (Trig/Chol/HDL) [address] [place] [address] [phone] Cholesterol 138 mg/dL Less Than 200 115 High Density Lipoprotein 43 mg/dL 40-60 116 Cholesterol/HDL Ratio 3.21 AVERAGE 1-4.97 Low Density Lipoprotein 77 mg/dL Less Than 100 117 Protein 02/27/2010 [facility] Albumin 3.30 GM/DL 3.0-4.35 Electrophoresis Serum [address] [place] [address] [phone] Alpha 1 0.20 GM/DL 0.09-0.33 Alpha 2 0.83 GM/DL 0.59-1.18 Beta 0.80 GM/DL 0.68-1.02 Gamma 0.97 GM/DL 0.76-1.60 Albumin % 54.1 % 46-63 Alpha 1 % 3.3 % 1.2-5.3 Alpha 2 % 13.6 % 9-17 Beta % 13.1 % 10-16 Gamma % 15.9 % 12-22 A/G Ratio 1.2 0.9-2 Total Protein 6.1 GM/DL Low 6.2-8.1 Spep Comments (SEE NOTE) 118 Laboratory test finding 02/27/2010 [facility] Ferritin 71 NG/ML 24-336 [address] [place] [address] [phone] Vitamin B12 194 pg/mL 180-914 Iron & Iron Binding 02/27/2010 [facility] Iron Total 108 g/dL 45-182 Capacity [address] [place] [address] [phone] Unsaturated Iron Binding 257 g/dL Total Iron Binding Capacity 365 g/dL 250-450 % Iron Saturation 30 % 15-55 CBC With 02/27/2010 [facility] White Blood 3.9 CUMM Low 4.8- 10.[address] [place] [address] [phone] Red Cell Count 4.43 CUMM Low 4.6-6.2 [...] 0-0.6 Abs Basophils 0 0-0.2 Lipid Profile 02/27/2010 [facility] Triglyceride 128 mg/dL 40 -200 (Trig/Chol/HDL) [address] [place] [address] [phone] Cholesterol 156 mg/dL Less Than 200 119 High Density Lipoprotein 47 mg/dL 40-60 120 Cholesterol/HDL Ratio 3.32 AVERAGE 1-4.97 Low Density Lipoprotein 83 mg/dL Less Than 100 121 Liver Function 02/27/2010 [facility] Total Protein 6.3 GM/DL 6.2-8.1 Panel [address] [place] [address] [phone] Albumin 3.8 GM/DL 3.2-5.2 Globulin 2.5 GM/DL 2-4 Albumin/Globulin Ratio 1.5 1-3 Bilirubin Total 2.2 mg/dL High 0.4-1.5 122 Bilirubin Direct 0.3 mg/dL 0.1-0.5 Indirect Bilirubin 1.9 mg/dL High 0.3-1.0 123 Alkaline Phosphatase 71 U/L 39-117 Alt (SGPT) 24 U/L 17-63 Ast (Sgot) 17 U/L 12-42 CBC With 02/19/2010 [facility] White Blood 4.9 CUMM 4.8-10.8 124 Electronic Diff [address] [place] [address] [phone] Red Cell Count 4.36 CUMM Low 4.6-6.2 [...] Eosinophils 0.1 0-0.6 Abs Basophils 0 0-0.2 125 Laboratory test 02/19/2010 [facility] PTT (Aptt) 29.4 25.15- 38.[address] [place] [address] [phone] D Dimer Quantitative < 200 Less Than 230 Protime 02/19/2010 [facility] Inr 0.91 0.82-1.[address] [place] [address] [phone] Protime 10.7 SEC 10.2-14.8 127 Laboratory test 02/19/2010 [facility] CPK (Creatine 122 U/L 0 -[address] Kinase) [place] [address] [phone] Troponin-I (TnI) 0.02 NG/ML 128 Comp Metabolic Panel 02/19/2010 [facility] Sodium 135 mmol/L 135-[address] [place] [address] [phone] Potassium 4.4 mmol/L 3.5-5.0 Chloride 100 mmol/L Low 101-111 Co2 (Carbon Dioxide) 26.0 mmol/L 22-32 Anion Gap 9.0 mmol/L 2-11 129 Glucose 214 mg/dL High 70-100 130 BUN 16 mg/dL 6-24 Creatinine 0.90 mg/dL 0.50-1.40 One Over Creatinine 1.10 BUN/Creatinine Ratio 17.8 8-20 Calcium 9.3 mg/dL 8.1-9.9 Total Protein 6.7 GM/DL 6.2-8.1 Albumin 3.9 GM/DL 3.2-5.2 Globulin 2.8 GM/DL 2-4 Albumin/Globulin Ratio 1.4 1-3 Bilirubin Total 2.2 mg/dL High 0.4-1.5 131 Alkaline Phosphatase 78 U/L 39-117 Alt (SGPT) 27 U/L 17-63 Ast (Sgot) 27 U/L 12-42 eGFR Non- 88.4 > 60 eGFR 107.0 > 60 132 Laboratory test 10/08/2009 [facility] PSA Screening 0.71 NG/ML 0-4 133 finding [address] [place] [address] [phone] Urinalysis 02/02/2007 [facility] Ua Color YELLOW W/Microscopic [address] [place] [address] [phone] Ictotest-Urine NEGATIVE (NEG) Appearance-Urine CLEAR Bacteria-Urine TRACE Blood-Urine NEGATIVE Negative Epith Cells-Ur RARE Esterase-Urine TRACE Abnormal Negative Glucose-Urine NEGATIVE Negative Ketones-Urine NEGATIVE Negative Mucus Urine LARGE Nitrite NEGATIVE Negative PH-Urine 6.0 5-9 Protein-Urine 1+ Abnormal Negative RBC-Urine 0-2 0-2 Knqxvmiehexs-Sq-TYH NEGATIVE Negative Specific [place]-Ur 1.017 1.010-1.030 WBC-Urine 0-2 0-5 Comp Metabolic Panel 02/02/2007 [facility] One Over Creatinine 1.00 [address] [place] [address] [phone] Anion Gap 5.0 mmol/L 2-11 134 Albumin/Globulin Ratio 1.8 1-3 Albumin 4.0 GM/DL [...] Creatinine 1.0 mg/dL 0.5-1.4 Lipid Profile 02/02/2007 [facility] Cholesterol/HDL 3.52 1- 4.97 (Trig/Chol/HDL) [address] [place], [place] [address] [phone] Cholesterol 169 mg/dL Less Than 200 135 Triglyceride 135 mg/dL 40-200 High Density Lipoprotein 48 mg/dL 40-60 Low Density Lipoprotein 94 mg/dL Less Than 100 136 Laboratory test 02/02/2007 [facility] TSH 0.95 MIU/ML 0.34- 5.[address] [place] [address] [phone] Vitamin B12 184 pg/mL 180-914 Testosterone Total 369.1 ng/dL 175-781 Hemoglobin A1c 7.8 % High <6.0 137 1 Please note: The following may produce a false positive D Dimer test: - Rheumatoid factor greater than 60 IU/ml - Plasma hemoglobin greater than 0.05 gm/dl - Bilirubin greater than 50 mg/dl - Lipids greater than 1000 mg/dl - FDP greater than 20 ug/ml 2 [facility] Severe Sepsis and Septic Shock Management [...] 5 Kidney failure <15 (or dialysis) 4 1809-A:Morphology: pearly telangiectatic papule;DDX: Basal Cell Carcinoma;Location: left mid to u 5 SEE RESULT BELOW Name: MARIE SWEENEY John : [address]: Mami Lou MD Acct: [id number] Unit: [id number] AGE: 78 Location: [facility] Re02/22/18 SEX: M Status: REG REF SPEC: [id number] VENU: 02/22/181504 [facility] DR: Mami Lou MD REQ: [id number] RECD: 02/22/18 STATUS: MARLEN ANSARI DR: Noa Fernandez MD _ ORDERED: LEVEL 4 COMMENTS: [id number] FINAL DIAGNOSIS Skin, left mid to upper [...] 1022 END OF REPORT DEPARTMENT OF PATHOLOGY, [address] [place] [address] Tavo Patel M.D. Director [facility] # [id number] 6 SEE RESULT BELOW Name: MARIE SWEENEY : [address]: Moraima Montague DO Acct: [id number] Unit: [id number] AGE: 78 Location: [place] [address] Re02/06/18 SEX: M Status: ADM IN SPEC: [id number] VENU: 02/06/[address]: Bob Bertrand MD REQ: [id number] RECD: 02/06/18 STATUS: LIZZETTE ANSARI DR: Noa [...] . END OF REPORT DEPARTMENT OF PATHOLOGY, [address] [place] [address] Tavo Patel M.D. Director [facility] # [id number] 7 [facility] Severe Sepsis and Septic Shock Management Bundle Measure requires all lactic acids initially measuring >2.0 mmol/L be repeated. 8 Result TnIDx:0.06 Called to [id number] at: 17:25:41 by:[id number] Read back by: [id number] 9 Because ethnic data is not always [...] (or dialysis) 10 Interpretive information available on [employer] Lab Test Catalog at [email or web address] 11 SEE RESULT BELOW Name: MARIE SWEENEY : [address]: Daysi Greer MD Acct: [id number] Unit: [id number] AGE: 78 Location: [address] Re02/06/18 Dis: 02/10/18 SEX: M Status: DIS IN SPEC: [id number] VENU: 02/06/[address]: Bob Bertrand MD REQ: [id number] RECD: 02/06/18 STATUS: LIZZETTE ANSARI DR: Noa Fernandez MD _ SOURCE: BLOOD,VENO SPDES: ORDERED: Blood Cult Procedure Result Reported Site Aerobic Culture Bottle Final 02/11/18- 1820 ML No Growth Day 5 Anaerobic Culture Bottle Final 02/11/18- 1820 ML No Growth Day 5 * - Main Lab . END OF REPORT DEPARTMENT OF PATHOLOGY, [address] [place] [address] Tavo Patel M.D. Director [facility] # [id number] 12 It Application Administrator: [id number] 13 SEE RESULT BELOW Name: MARIE SWEENEY John : [address]: Kenny Ortega MD Acct: [id number] Unit: [id number] AGE: 78 Location: ED Re02/05/18 SEX: M Status: REG ER SPEC: [id number] VENU: 02/05/[address] [facility] [address]: Kenny Ortega MD REQ: [id number] RECD: 02/05/18 STATUS: LIZZETTE ANSARI DR: Noa Fernandez MD _ SOURCE: [facility]: ORDERED: Flu A B Request Procedure Result Reported Site Rapid Influenza A B Request Final 02/05/18- 1641 ML Specimen received for Influenza A/B Molecular testing * ML - Main Lab . END OF REPORT DEPARTMENT OF PATHOLOGY, [address] [place] [address] Tavo Patel M.D. Director [facility] # [id number] 14 It Application Administrator: [id number] 15 SEE RESULT BELOW Name: MARIE SWEENEY : [address]: Kenny Ortega MD Acct: [id number] Unit: [id number] AGE: 78 Location: ED Re02/05/18 SEX: M Status: REG ER SPEC: [id number] VNEU: 02/05/[address] [facility] [address]: Ayla JOHNSON REQ: [id number] RECD: 02/05/18 STATUS: LIZZETTE ANSARI DR: [facility] Noa Fernandez MD _ SOURCE: THROAT SPDESC: ORDERED: Strep A Request Procedure Result Reported Site Rapid Strep A Request Final 02/05/181534 ML Specimen received for Rapid Strep A Molecular testing * ML - Main Lab . END OF REPORT DEPARTMENT OF PATHOLOGY, [address] [place] [address] Tavo Patel M.D. Director [facility] # [id number] 16 1623-A:Morphology: pearly telangiectatic papule;DDX: Basal Cell Carcinoma;Location: right frontal 17 SEE RESULT BELOW Name: MARIE SWEENEY : [address]: Mami Lou MD Acct: [id number] Unit: [id number] AGE: 77 Location: [facility] Re01/05/18 SEX: M Status: REG REF SPEC: [id number] VENU: 01/05/18-[address] [facility] [address]: Mami Lou MD REQ: [id number] RECD: 01/05/18 STATUS: MARLEN ANSARI DR: Noa Fernandez MD _ ORDERED: LEVEL 4 COMMENTS: [id number] FINAL DIAGNOSIS Skin, right frontal scalp, biopsy: [...] 1013 END OF REPORT DEPARTMENT OF PATHOLOGY, [address] [place] [address] Tavo Patel M.D. Director [facility] # [id number] 19 SEE RESULT BELOW Name: MARIE SWEENEY : [address]: Jorden Silva MD Acct: [id number] Unit: [id number] AGE: 77 Location: [facility] Re09/29/17 SEX: M Status: BECKY GUIDO SPEC: [id number] VENU: 09/29/17-[address] [facility] [address]: Jorden Silva MD REQ: [id number] RECD: 09/29/17 STATUS: SOUT _ ORDERED: Declinh, LEVEL 3 COMMENTS: [id number] FINAL DIAGNOSIS Bone, left index finger, middle [...] 1149 END OF REPORT DEPARTMENT OF PATHOLOGY, [address] [place] [address] Tavo Patel M.D. Director [facility] # [id number] 20 SEE RESULT BELOW Name: MARIE SWEENEY : [address]: Jorden Silva MD Acct: [id number] Unit: [id number] AGE: 77 Location: [facility] Re09/29/17 SEX: M Status: DEP SDC SPEC: [id number] VENU: 09/29/[address]: Jorden Silva MD REQ: [id number] RECD: 09/29/17 STATUS: LIZZETTE ANSARI DR: Noa Fernandez MD _ SOURCE: FINGER SPDESC:INDEX LEFT ORDERED: Culture Stain Procedure Result Reported Site Wound/Misc Gram Stain Final 09/30/17- 734 ML 1+ Neutrophils No Organisms Seen Wound/Misc Culture Final 10/03/17- 806 ML No Growth Day 4 * - Main Lab . END OF REPORT DEPARTMENT OF PATHOLOGY, [address] [place] [address] Tavo Patel M.D. Director [facility] # [id number] 21 SEE RESULT BELOW Name: MARIE SWEENEY John : [address]: Jorden Silva MD Acct: [id number] Unit: [id number] AGE: 77 Location: [facility] Re09/29/17 SEX: M Status: DEP SDC SPEC: [id number] VENU: 09/29/[address] [facility] [address]: Jorden Silva MD REQ: [id number] RECD: 09/29/17 STATUS: LIZZETTE ANSARI DR: Noa Fernandez MD _ SOURCE: WOUND SPDESC:INDEX LEFT ORDERED: Anaerobic Cult Procedure Result Reported Site Anaerobic Culture Final 10/03/17- 0807 ML No Growth Day 4 * ML - Main Lab . END OF REPORT DEPARTMENT OF PATHOLOGY, [address] [place] [address] Tavo Patel M.D. Director [facility] # [id number] 22 Acute inflammation: >10.00 23 Acute inflammation: >10.00 24 Not diagnostic. Supplemental testing by immunoblot has been ordered by reflex. Test Performed by: [facility] [address] [place] [address] 96 Specific serologic response to B. burgdorferi infection [...] screening test (e.g., EIA). Test Performed by: [facility] [address] [place] [address] 26 Desirable: <150 Borderline High: 150-199 High: [...] protein on serum electrophoresis. Test Performed by: [place] [address] Veterinary Physiologist: Clifton Bruce II, M.D., Ph.D. 48 Because [...] 10 HOUR Copy Result to: [facility] ([id number]) 55 Normal Range 180 to 914 Indeterminate Range 145 to 180 Deficient Range <145 56 Copy Result to: [facility] ([id number]) 57 Because ethnic data is not always [...] levels of PSA measured using the [employer] DXI Hybritech immunoassay should not be interpreted [...] 5 Kidney failure <15 (or dialysis) 66 It Application Administrator: [id number] ALEX HARRELL 67 It Application Administrator: [id number] GOLDIE PÉREZ 68 SEE RESULT BELOW Name: MARIE SWEENEY : [address]: Damian Goldberg MD Acct: [id number] Unit: [id number] AGE: 74 Location: [facility]O Re10/07/14 SEX: M Status: REG REF SPEC: [id number] VENU: 10/07/[address] [facility] [address]: Damian Goldberg MD REQ: [id number] RECD: 10/07/14 STATUS: MARLEN ANSARI DR: Noa [...] performed at Main Lab DEPARTMENT OF PATHOLOGY, [address] [place] [address] Tavo Patel M.D. Director [facility] # [id number] 69 PT IS FASTING 70 Because ethnic [...] levels of PSA measured using the [employer] [place] DXI Hybritech immunoassay should not be interpreted [...] Chromatography-Tandem Mass Spectrometry (LC-MS/MS). Test Performed by: [address] [address] Veterinary Physiologist: Bon Rivers III, M.D. 78 FASTING 79 [...] of 30-299 ug/mg. 83 RUN DATE: 01/26/13 [facility] LAB LIVE PAGE 1 RUN TIME: [address] [place] [address] Specimen Inquiry Name: MARIE SWEENEY : [address]: Noa Fernandez MD Acct: [id number] Unit: [id number] AGE: 73 Location: [facility] Re01/24/13 SEX: M Status: REG REF SPEC: [id number] VENU: 01/24/[address] [facility] [address]: Noa Fernandez MD REQ: [id number] RECD: 01/24/13 STATUS: RES _ SOURCE: STOOL SPDESC: ORDERED: Hemoccult, Stool Culture, O P (Full), O P: Giar/Crypt QUERIES: [employer] Number [id number] Procedure Result Verified Site Stool Culture Final [...] performed at Main Lab DEPARTMENT OF PATHOLOGY, [address] [place] [address] Tavo Patel M.D. Director [facility] Permit #[id number] RUN DATE: 01/26/13 [facility] LAB LIVE PAGE 2 RUN TIME: [address] [place] [address] Specimen Inquiry Patient: MARIE SWEENEY [id number] (Continued) Specimen: [id number] Collected: 01/24/13 Received: 01/24/13-201 (Continued) Procedure Result Verified Site Shiga Toxin [...] performed at Main Lab DEPARTMENT OF PATHOLOGY, [facility] [place] [employer] [place], [place] [address] Tavo Patel M.D. Director [facility] Permit #[id number] RUN DATE: 01/25/13 [facility] LAB LIVE PAGE 1 RUN TIME: 1609 [facility] [place] [employer] [place], [place] [address] Specimen Inquiry Name: MARIE SWEENEY : [address]: Noa Fernandez MD Acct: [id number] Unit: [id number] AGE: 73 Location: [facility] Re01/24/13 SEX: M Status: REG REF SPEC: [id number] VENU: 01/24/[address] [facility] [address]: Noa Fernandez MD REQ: [id number] RECD: 01/24/13 STATUS: RES _ SOURCE: STOOL SPDESC: ORDERED: Hemoccult, Stool Culture, O P (Full), O P: Giar/Crypt QUERIES: [employer] Number [id number] Procedure Result Verified Site Stool Culture Preliminary [...] performed at Main Lab DEPARTMENT OF PATHOLOGY, [facility] [place] [employer] [place], [place] [address] Tavo Patel M.D. Director [facility] Permit #[id number] RUN DATE: 01/24/13 [facility] LAB LIVE PAGE 1 RUN TIME: 5091 [facility] [place], [place] [address] Specimen Inquiry Name: MARIE SWEENEY : [address]: Noa Fernandez MD Acct: [id number] Unit: [id number] AGE: 73 Location: [facility] Re01/24/13 SEX: M Status: REG REF SPEC: [id number] VENU: 01/24/[address] [facility] [address]: Noa Fernandez MD REQ: [id number] RECD: 01/24/138973 STATUS: RES _ SOURCE: STOOL SPDESC: ORDERED: Hemoccult, Stool Culture, O P (Full), O P: Giar/Crypt QUERIES: [employer] Number [id number] Procedure Result Verified Site Stool Culture PENDING Stool Specimen Description Final 01/24/13- 1545 ML Stool Color Brown Stool Form Nonformed Stool Consistency Soft Shiga Toxin 1 2 PENDING Stool Occult Blood Final 01/24/13- 1603 ML Stool Occult Blood Negative Ova Parasite Concen Full PENDING O P: Giardia/Cryptospor Screen PENDING END OF REPORT * ML=Testing performed at Main Lab DEPARTMENT OF PATHOLOGY, [facility] [facility] [place] [employer] [place], [place] [address] Tavo Patel M.D. Director [facility] Permit #[id number] RUN DATE: 01/26/13 [facility] LAB LIVE PAGE 1 RUN TIME: [address] [facility] [place] [facility] [place], [place] [address] Specimen Inquiry Name: MARIE SWEENEY : [address]: Noa Fernandez MD Acct: [id number] Unit: [id number] AGE: 73 Location: [facility] Re01/24/13 SEX: M Status: REG REF SPEC: [id number] VENU: 01/24/[address]: Noa Fernandez MD REQ: [id number] RECD: 01/24/13441 STATUS: COMP _ SOURCE: STOOL SPDESC: ORDERED: Hemoccult, Stool Culture, O P (Full), O P: Claudy/Crypt QUERIES: Medent Number [id number] Procedure Result Verified Site Stool Culture Final [...] performed at Main Lab DEPARTMENT OF PATHOLOGY, [facility] [place] [facility] [place] [employer] [place] [id number] Tavo Patel M.D. Director [facility] Permit #[id number] DATE: 01/26/13 [facility] LAB LIVE PAGE 2 RUN TIME: [address] [facility] [place] [facility] [place], [place] [address] Specimen Inquiry Patient: MARIE SWEENEY [id number] (Continued) Specimen: [id number] Collected: 01/24/13 Received: 01/24/13083 (Continued) Procedure Result Verified Site Shiga Toxin [...] is requested. Contact the Microbiology Department at [phone]. TEST LIMITATIONS: As with all diagnostic procedures, [...] performed at Main Lab DEPARTMENT OF PATHOLOGY, [address] [place] [address] Tavo Patel M.D. Director [facility] Permit #[id number] Serum levels of PSA measured using the [employer] [place] DXI Hybritech immunoassay should not be interpreted [...] 5 Kidney failure <15 (or dialysis) 90 A metabolite of Naproxen, O-desmethylnaproxen, has [...] 5 Kidney failure <15 (or dialysis) 92 Desirable: Less than 200 MG/DL Borderline-High Risk: 200-239 MG/DL High-Risk: 240 MG/DL and over 93 HDL Interpretation: Undesirable: High Risk: Less than 40 MG/DL Desirable: Low Risk: Greater than 60 MG/DL 94 Microalbuminuria in a random sample is defined as: Microalbumin/Creatinine ratio of 30-299 ug/mg. 95 Lymphopenia % 96 CHOLESTEROL INTERPRETATION: Desirable: Less than 200 MG/DL Borderline-High Risk: 200-239 MG/DL High-Risk: 240 MG/DL and over 97 HDL INTERPRETATION: Undesirable: High Risk: Less than 40 MG/DL Desirable: Low Risk: Greater than 60 MG/DL 98 LDL INTERPRETATION: Low Risk Optimal Level: LDL Less than 100 MG/DL Near or Above Optimal: LDL 100-129 MG/DL Borderline High Risk: LDL 130-159 MG/DL High Risk: LDL 160-189 MG/DL Very High Risk: LDL Greater than 189 MG/DL 99 Anion gap measurement may be of limited value in the presence of any alkalosis, especially in a combined acid base disorder. . 100 A metabolite of Naproxen, O-desmethylnaproxen, has been shown to interfere with the Jendrassik-Norma method for measuring total bilirubin. Samples from patients who have taken Naproxen have shown spurious elevation in total bilirubin levels. 101 Because ethnic data is not always readily [...] 15-29 5 Kidney failure <15 (or dialysis) 102 MICROALBUMINURIA IN A RANDOM SAMPLE IS DEFINED : MICROALBUMIN/CREATININE RATIO OF 30-299 ug/mg. . 103 New Reference Range and Interpretation effective 01/26/2002 TnI (ng/ml) INTERPRETATION Less Than 0.06 ng/mL NOT SUPPORTIVE OF DIAGNOSIS OF DC 0.06 - 0.50 ng/ml INDETERMINATE: SUGGEST SERIAL STUDIES IF CLINICALLY INDICATED. Greater than 0.5 ng/mL CONSISTENT WITH DIAGNOSIS OF DC . 104 INTERPRETATION %CK-MB < 5% NOT SUPPORTIVE OF DIAGNOSIS OF DC 5 - <10% INDETERMINATE; SUGGEST SERIAL STUDIES IF CLINICALLY INDICATED 10% OR > CONSISTENT WITH DIAGNOSIS OF DC . 105 Anion gap measurement may be of limited value in the presence of any alkalosis, especially in a combined acid base disorder. . 106 A metabolite of Naproxen, O-desmethylnaproxen, has been shown to interfere with the Jendrassik-Norma method for measuring total bilirubin. Samples from patients who have taken Naproxen have shown spurious elevation in total bilirubin levels. 107 Because ethnic data is not always readily [...] 15-29 5 Kidney failure <15 (or dialysis) 108 Anion gap measurement may be of limited value in the presence of any alkalosis, especially in a combined acid base disorder. . 109 A metabolite of Naproxen, O-desmethylnaproxen, has been shown to interfere with the Jendrassik-Norma method for measuring total bilirubin. Samples from patients who have taken Naproxen have shown spurious elevation in total bilirubin levels. 110 Because ethnic data is not always readily [...] 15-29 5 Kidney failure <15 (or dialysis) 111 MICROALBUMINURIA IN A RANDOM SAMPLE IS DEFINED : MICROALBUMIN/CREATININE RATIO OF 30-299 ug/mg. . 112 CHOLESTEROL INTERPRETATION: Desirable: Less than 200 MG/DL Borderline-High Risk: 200-239 MG/DL High-Risk: 240 MG/DL and over 113 HDL INTERPRETATION: Undesirable: High Risk: Less than 40 MG/DL Desirable: Low Risk: Greater than 60 MG/DL 114 LDL INTERPRETATION: Low Risk Optimal Level: LDL Less than 100 MG/DL Near or Above Optimal: LDL 100-129 MG/DL Borderline High Risk: LDL 130-159 MG/DL High Risk: LDL 160-189 MG/DL Very High Risk: LDL Greater than 189 MG/DL 115 CHOLESTEROL INTERPRETATION: Desirable: Less than 200 [...] Risk: LDL Greater than 189 MG/DL 118 NORMAL ELECTROPHORETIC PATTERN. 119 CHOLESTEROL INTERPRETATION: Desirable: Less than 200 MG/DL Borderline-High Risk: 200-239 MG/DL High-Risk: 240 MG/DL and over 120 HDL INTERPRETATION: Undesirable: High Risk: Less than 40 MG/DL Desirable: Low Risk: Greater than 60 MG/DL 121 LDL INTERPRETATION: Low Risk Optimal Level: LDL Less than 100 MG/DL Near or Above Optimal: LDL 100-129 MG/DL Borderline High Risk: LDL 130-159 MG/DL High Risk: LDL 160-189 MG/DL Very High Risk: LDL Greater than 189 MG/DL 122 A metabolite of Naproxen, O-desmethylnaproxen, has been shown to interfere with the Jendrassik-[place] method for measuring total bilirubin. Samples from patients who have taken Naproxen have shown spurious elevation in total bilirubin levels. 123 Please note updated reference range, effective 11/13/09 124 COMMENTS: N 125 Lymphopenia % 126 Recommended INR for Patients on Oral Anticoagulants Prophylaxis 2.0 - 3.0 Treatment of thrombosis 2.0 - 3.0 Prevention of embolism 2.0 - 3.0 Prevention of embolism from prosthetic heart valves 2.5 - 3.5 127 DIAGNOSIS,TREATMENT,AND THERAPY MUST BE BASED ON THE INR VALUE ALONE. 128 New Reference Range and Interpretation effective 01/26/2002 TnI (ng/ml) INTERPRETATION Less Than 0.06 ng/mL NOT SUPPORTIVE OF DIAGNOSIS OF DC 0.06 - 0.50 ng/ml INDETERMINATE: SUGGEST SERIAL STUDIES IF CLINICALLY INDICATED. Greater than 0.5 ng/mL CONSISTENT WITH DIAGNOSIS OF DC . 129 Anion gap measurement may be of limited value in the presence of any alkalosis, especially in a combined acid base disorder. . 130 Note change in reference range as of 12/14/07. The change was based on recommendations from the [place] [employer]. 131 A metabolite of Naproxen, O-desmethylnaproxen, has been shown to interfere with the Jendrassik-[place] method for measuring total bilirubin. Samples from patients who have taken Naproxen have shown spurious elevation in total bilirubin levels. 132 Because ethnic data is not always readily [...] 15-29 5 Kidney failure <15 (or dialysis) 133 * SERUM LEVELS OF PSA MEASURED USING THE TONNY [employer] ACCESS HYBRITECH IMMUNOASSAY SHOULD NOT BE INTERPRETED ABSOLUTE EVIDENCE OF THE PRESENCE OR ABSENCE OF DISEASE. THE PSA VALUE SHOULD BE USED IN CONJUNCTION WITH OTHER PERTINENT CLINICAL DIAGNOSTIC PROCEDURES. 134 Anion gap measurement may be of limited value in the presence of any alkalosis, especially in a combined acid base disorder. . 135 Classification: Desirable . 136 CALCULATED LDL APPROXIMATES THE VALUE OF A DIRECT LDL MEASUREMENT. Classification: Optimal Level . 137 THERAPEUTIC TARGET FOR THE TREATMENT OF DIABETES MELLITUS PATIENTS IS <7% HBA1C, AND IN SELECTIVE PATIENTS <6.0%. PLEASE REFER TO [employer] DIABETIC CARE GUIDELINES FOR FURTHER INFORMATION. Procedures Date Code Description Status 03/14/2018 05979 EKG Tracing & Interpretation Completed 02/25/2018 11174 EKG, Interpretation Only Completed 02/22/2018 10681 EKG Tracing & Interpretation Completed 02/07/2018 91881 ECHO Transthorasic Realtime 2D W Doppler & Color Flow Completed Hosp 02/07/2018 64564 ECHO Transthorasic Realtime 2D W Doppler & Color Flow Completed Hosp 11/22/2017 [id number] Diabetic Retinal Eye Exam Completed 09/29/2017 Inject/Drain Joint/Bursa Small W/O US Completed 09/29/201772449 Excise Biopsy Bone Deep Completed 09/29/2017 Inject/Drain Joint/Bursa Small W/O US Completed 09/29/201797685 Excise Biopsy Bone Deep Completed 04/12/2017 [id number] Diabetic Retinal Eye Exam Completed 02/23/2017 78102 EKG Tracing & Interpretation Completed 10/19/2016 [id number] Diabetic Retinal Eye Exam Completed 05/05/2016 10798 Inject Tendon Sheath Or Ligament Aponeurosis Eg Completed Plantar Fascia 04/08/2016 [id number] Diabetic Retinal Eye Exam Completed 11/10/2015 28971 Cardiac Cath,LT Hrtmincl Intraprocedural Ink LT Completed Ventricul Mammary 10/23/2015 85334 Stress Test Completed 10/23/2015 93851 Myocardial Perfusion Imaging Tomographic (Spect) Completed Multiple Studies 10/21/2015 22684 ECHO Transthoracic, Real-Time 2D With Doppler And Completed Color Flow 10/07/2015 [id number] Diabetic Retinal Eye Exam Completed 09/26/2015 72152 EKG Tracing & Interpretation Completed 09/25/2015 39624 Inject Tendon Sheath Or Ligament Aponeurosis Eg Completed Plantar Fascia 09/23/2015 15590 Carotid Doppler,Bilateral Completed 09/23/2015 89768 Carotid Doppler,Bilateral Completed 02/06/2015 83467 Inject Tendon Sheath Or Ligament Aponeurosis Eg Completed Plantar Fascia 10/11/2014 29231 EKG Tracing & Interpretation Completed 10/07/2014 [id number] Colonoscopy Completed 09/19/2014 [id number] Diabetic Retinal Eye Exam Completed 03/12/2014 [id number] Diabetic Retinal Eye Exam Completed 01/17/2014 59014 Rad Exam; Wrist, Comp, Min 3 Views Completed 01/17/2014 22648 Inject Tendon Sheath Or Ligament Aponeurosis Eg Completed Plantar Fascia 08/17/2013 90963 Carotid Doppler,Bilateral Completed 08/14/2013 12752 ECHO Transthoracic, Real-Time 2D With Doppler And Completed Color Flow 08/08/2013 13308 Myocardial Perfusion Imaging Tomographic (Spect) Completed Multiple Studies 08/08/2013 19392 Stress Test Completed 02/18/2012 [id number] Diabetic Retinal Eye Exam Completed 08/20/2011 [id number] Diabetic Retinal Eye Exam Completed 04/12/2011 22059 EKG Tracing & Interpretation Completed 09/29/2009 88253 EKG Tracing & Interpretation Completed 08/19/2008 34490 EKG Tracing & Interpretation Completed 03/08/2007 77391 EKG Tracing & Interpretation Completed 05/03/2006 17417 Pulse Doppler & Continuous Wave Completed 05/03/2006 13029 Echocardiogram Completed 05/03/2006 82005 Echocardiogram Completed 05/03/2006 32498 Color Doppler Completed 05/03/2006 94279 Color Doppler Completed Encounters Type Date Location Provider Dx Diagnosis Office Visit 03/14/2018 [facility] Jerman Cornejo I25.10 Athscl heart 2:00p Of Crop [facility]er [place] [facility] Russell. disease of [place] coronary artery w/o ang pctrs I35.0 Nonrheumatic aortic (valve) stenosis Z95.2 Presence of prosthetic heart valve Office Visit 02/27/2018 8:56a [facility] I25.10 [facility] heart Assoctyler NP disease of Hospitalists [place] coronary artery w/o ang pctrs I35.0 Nonrheumatic aortic (valve) stenosis I10 Essential (primary) hypertension I50.32 Chronic diastolic (congestive) heart failure E11.9 Type 2 diabetes mellitus without complications Office Visit 02/26/2018 8:55a [facility] Humberto Moran, I25.10 Juhijuan jose heart Asstyler goldsmith MD disease of Hospitalists [place] coronary artery w/o ang pctrs I35.0 Nonrheumatic aortic (valve) stenosis I10 Essential (primary) hypertension I50.32 Chronic diastolic (congestive) heart failure E11.9 Type 2 diabetes mellitus without complications Office Visit 02/25/2018 8:55a [facility] Humberto Moran, I25.10 Juhijuan jose heart Asstyler goldsmith MD disease of Hospitalists [place] coronary artery w/o ang pctrs I35.0 Nonrheumatic aortic (valve) stenosis I10 Essential (primary) hypertension I50.32 Chronic diastolic (congestive) heart failure E11.9 Type 2 diabetes mellitus without complications Office Visit 02/24/2018 [facility] Philip R07.9 Chest pain, 8:55a tyler Obando, N.P. unspecified Hospitalists I10 Essential (primary) hypertension E11.9 Type 2 diabetes mellitus without complications G47.33 Obstructive sleep apnea (adult) (pediatric) I25.10 Athscl heart disease of [place] coronary artery w/o ang pctrs I35.0 Nonrheumatic aortic (valve) stenosis Office Visit 02/22/2018 10:45a [facility] Jerman DGracie I47.2 Ventricular Of Yesenia Russell M.D. 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 I10 Essential (primary) hypertension I35.0 Nonrheumatic aortic (valve) stenosis [facility] [place]15.9 Unspecified 9:02a Assoc,tyler Valente, INDUSTRIAL RELATIONS REPRESENTATIVE bacterial Hospitalists pneumonia I47.2 Ventricular tachycardia I25.10 Athscl heart disease of [place] coronary artery w/o ang pctrs I10 Essential (primary) hypertension I50.32 Chronic diastolic (congestive) heart failure E11.9 Type 2 diabetes mellitus without complications 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 gout, unspecified site Office Visit 02/09/2018 [facility] Belkis J15.9 Unspecified 9:01a Assoc,tyler Valente, INDUSTRIAL RELATIONS REPRESENTATIVE bacterial Hospitalists pneumonia A41.9 Sepsis, unspecified organism I47.2 Ventricular tachycardia E11.9 Type 2 diabetes mellitus without complications I25.10 Athscl heart disease of [place] coronary artery w/o ang pctrs I10 Essential (primary) hypertension I50.32 Chronic diastolic (congestive) heart failure E87.1 Hypo-osmolality and hyponatremia E80.7 Disorder of bilirubin metabolism, unspecified Office Visit 02/08/2018 [facility].9 Unspecified 9:01a Assoc,tyler Valente, INDUSTRIAL RELATIONS REPRESENTATIVE bacterial Hospitalists pneumonia A41.9 Sepsis, unspecified organism I47.2 Ventricular tachycardia R94.31 Abnormal electrocardiogram [ECG] [EKG] E11.9 Type 2 diabetes mellitus without complications I25.10 Athscl heart disease of [place] coronary artery w/o ang pctrs I10 Essential (primary) hypertension I50.32 Chronic diastolic (congestive) heart failure Office Visit 02/07/2018 10:36a [facility] Jerman Cornejo I47.2 Ventricular Of Yesenia Russell M.D. tachycardia I35.0 Nonrheumatic aortic (valve) stenosis J18.9 Pneumonia, unspecified organism R94.31 Abnormal electrocardiogram [ECG] [EKG] Office Visit 02/07/2018 [facility] Belkis J15.9 Unspecified 9:01a Assoc,pc Sidra, INDUSTRIAL RELATIONS REPRESENTATIVE bacterial Hospitalists pneumonia A41.9 Sepsis, unspecified organism I47.2 Ventricular tachycardia E11.9 Type 2 diabetes mellitus without complications I25.10 Athscl heart disease of [place] coronary artery w/o ang pctrs I10 Essential (primary) hypertension E87.1 Hypo-osmolality and hyponatremia E80.7 Disorder of bilirubin metabolism, unspecified Office Visit 02/06/2018 3:30p [facility] Internal Debbie Escobedo J18.9 Pneumonia, Medicine - [place] Gianni KUMAR unspecified organism Office Visit 02/06/2018 9:00a [facility] J18.9 Pneumonia, Assoc,pc ELIZABETH Herrera unspecified Hospitalists organism I10 Essential (primary) hypertension E78.5 Hyperlipidemia, unspecified E11.9 Type 2 diabetes mellitus without complications 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 general adult [place] medical exam w/o abnormal findings I10 Essential (primary) hypertension E11.21 Type 2 diabetes mellitus with diabetic nephropathy E78.5 Hyperlipidemia, unspecified R19.5 Other fecal abnormalities Office Visit 10/07/2017 8:45a Orthopedic Jorden M79.645 Pain in left Services Of MD Shira finger(s) C.M.A. 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 (primary) [place] hypertension Office Visit 02/23/2017 11:45a [facility] Jerman Cornejo I10 Essential Of Yesenia Russell M.D. (primary) hypertension I25.118 Athscl heart disease of [place] cor art w ot ang pctrs I35.0 Nonrheumatic aortic (valve) stenosis Office Visit 12/15/2016 3:30p [facility] Internal Noa R07.89 Other chest Raegan Fernandez M.D. pain Rd Office Visit 11/04/2016 2:40p [facility] Internal Noa Z00.00 Encntr for Raegan Fernandez M.D. general adult [place] medical exam w/o abnormal findings I10 Essential (primary) hypertension Office Visit 08/23/2016 2:00p [facility] Internal Noa I10 Essential ( primary) Raegan Fernandez M.D. 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 (primary) [place] hypertension Office Visit 03/04/2016 [facility] Internal Noa I10 Essential 10:00a Raegan Fernandez M.D. (primary) [place] hypertension L40.8 Other psoriasis Office Visit 01/30/2016 10:00a [facility] Jerman Cornejo I10 Essential (primary) Of Yesenia Russell M.D. hypertension I25.118 Athscl heart disease of [place] cor art w [facility] ang pctrs I35.0 Nonrheumatic aortic (valve) stenosis Office Visit 11/17/2015 9:00a [facility] Haylee Ching, I10 Essential (primary) Of [facility] hypertension I25.118 Athscl heart disease of [place] cor art w ot ang pctrs I35.0 Nonrheumatic aortic (valve) stenosis Office Visit 10/24/2015 3:45p [facility] Jerman Cornejo I25.118 Athscl heart Of Yesenia Russell M.D. disease of [place] cor art w [facility] ang pctrs I35.0 Nonrheumatic aortic (valve) stenosis Office Visit 09/26/2015 9:45a [facility] Jerman Cornejo I10 Essential (primary) Of Yesenia Russell M.D. hypertension I25.118 Athscl heart disease of [place] cor art w [facility] pctrs R01.1 Cardiac murmur, unspecified Office Visit 09/25/2015 Orthopedic Griselda Gore, M65.4 Radial styloid 3:20p Services Of RPA-C tenosynovitis [Martinez] Office Visit 03/03/2015 [facility] Internal Noa I10 Essential (primary) 9:40a Raegan Fernandez M.D. hypertension [place] R10.31 Right lower quadrant pain Office Visit 01/09/2015 1:00p Pulmonology And Gabriela 327.23 Obstructive Sleep Sleep Services Of MD Howard Apnea Adult & [facility] Pediatric 278.00 Obesity Unspec Office Visit 12/13/2014 9:20a [facility] Internal Pineda Akhtar, 789.03 Pain Abdominal Medicine - INDUSTRIAL RELATIONS REPRESENTATIVE Right Lower [place] Quadrant Office Visit 10/11/2014 2:30p [facility] Jerman Cornejo 401.1 Hypertension Of Yesenia Russell M.D. Benign 414.01 Coronary Atherosclerosis [place] Office Visit 10/09/2014 2:00p [facility] Internal Pineda Akhtar, V72.84 Examination Medicine - INDUSTRIAL RELATIONS REPRESENTATIVE Preoperative Unspec [place] 366.9 Cataract Unspec 250.00 Diabetes Mellitus W/O Compl Type II Or Unspec Controlled 401.1 Hypertension Benign 327.23 Obstructive Sleep Apnea Adult & Pediatric 414.01 Coronary Atherosclerosis [place] Office Visit 10/09/2014 3:45p Pulmonology And Gabriela 327.23 Obstructive Sleep Sleep Services Of MD Howard Apnea Adult & [facility] Pediatric 278.00 Obesity Unspec Office Visit 08/22/2014 4:00p [facility] Internal Noa V70.0 Examination Raegan Fernandez M.D. [facility] Routine AT Health Care Facility 401.1 Hypertension Benign 250.00 Diabetes Mellitus W/O Compl Type II Or Unspec Controlled 327.23 Obstructive Sleep Apnea Adult & Pediatric Office Visit 08/07/2014 [facility] Internal Seun Patel, 843.8 Sprains & Strains 2:30p Medicine - [place] INDUSTRIAL RELATIONS REPRESENTATIVE Hip & Thigh Other Rd Spec Sites Office Visit 02/27/2014 [facility] Internal Noa 401.1 Hypertension Benign 10:40a Raegan Fernandez M.D. [place] Office Visit 01/17/2014 Orthopedic Belkis 727.04 Tenosynovitis Radial 1:15p Services Of Breonna Thorpe Styloid C.M.AGracie Office Visit 09/06/2013 [facility] Jerman Cornejo 414.01 Coronary 9:30a Cardiology Beatriz Russell M.D. Atherosclerosis Yesenia Telida 786.05 Shortness Of Breath Office Visit 08/17/2013 3:40p [facility] Internal Noa V70.0 Examination Raegan Fernanedz M.D. [facility] Routine AT Health Care Facility 724.3 Sciatica 414.01 Coronary Atherosclerosis [place] 250.02 Diabetes Mellitus W/O Compl Type II Or Unspec Type Uncontrol Office Visit 08/10/2013 1:30p [facility] Nia Bishop, 401.1 Hypertension Of Yesenia Ravi Benign 786.51 Pain Precordial 414.01 Coronary Atherosclerosis [place] 785.2 Murmur Cardiac Undiagnosed 785.9 Cardiovascular Symptoms Other Office Visit 01/18/2013 8:40a [facility] Internal Noa 401.1 Hypertension Raegan Fernandez M.D. Benign [place] 787.91 Diarrhea V04.81 Need For Prophylactic Vaccination & Inoculation/Influenza Office Visit 10/10/2012 11:00a [facility] Internal Philomena Jay, 786.2 Cough Raegan Glynn M.D., FACP [place] Office Visit 08/11/2012 1:00p [facility] Internal Noa 401.1 Hypertension Raegan Fernandez M.D. Benign [place] 784.0 Headache Office Visit 05/02/2012 3:00p [facility] Internal Noa 401.1 Hypertension Raegan Fernandez M.D. Benign [place] 784.0 Headache Office Visit 04/07/2012 9:40a [facility] Internal Noa V70.0 Examination Raegan Fernandez M.D. General Medical [place] Routine AT Health Care Facility 401.1 Hypertension Benign 785.9 Cardiovascular Symptoms Other Office Visit 03/21/2012 9:00a [facility] Internal No[place] 401.1 Hypertension Raegan Fernandez M.D. Benign [place] Office Visit 02/28/2012 2:20p [facility] Internal Marsha Kline, 380.4 Impacted Cerumen Medicine - N.P. [place] Office Visit 02/18/2012 1:00p [facility] Internal Noa 401.1 Hypertension Raegan Fernandez M.D. Benign [place] 724.5 Backache Unspec Office 01/03/2012 [facility] Internal Noa V04.81 Need For Prophylactic Visit 2:40p Raegan Fernandez M.D. Vaccination & [place] Inoculation/Influenza 401.1 Hypertension Benign 238.2 Neoplasm Uncertain Skin Office Visit 11/18/2011 2:40p [facility] Internal [place] 401.1 Hypertension Raegan Fernandez M.D. Benign [place] Office Visit 10/07/2011 11:00a [facility] Internal Noa 401.1 Hypertension Raegan Fernandez M.D. Benign [place] Office Visit 04/21/2011 1:00p DO Not Use Philomena Misty, 786.2 Cough Yesenia Ravi, FACP Office Visit 08/19/2010 2:45p DO Not Use Marsha Kline, 466.0 Bronchitis Acute [facility] N.P. Office Visit 08/04/2010 11:30a DO Not Use [place] 401.1 Hypertension Yesenia Fernandez M.D. Benign 272.2 Hyperlipidemia Mixed Office Visit 04/02/2010 DO Not Use [place] 682.0 Cellulitis & 10:15a Yesenia Fernandez M.D. Abscess Face 401.1 Hypertension Benign 250.00 Diabetes Mellitus W/O Compl Type II Or Unspec Controlled Office Visit 01/08/2010 9:00a DO Not Use Nurse Visit 401.1 [facility]ension [facility] V04.81 Need For Prophylactic Vaccination & Inoculation/Influenza Office Visit 10/07/2009 DO Not Use Marsha Kline, 466.0 Bronchitis Acute 11:30a [facility] Office Visit 09/29/2009 DO Not Use [...] Inoculation/Influenza Office Visit 02/18/2009 DO Not Use Radjonaki, 250.02 Diabetes 2:30p Yesenia Gold M.D. Mellitus [...] Use Marsha Kline, 465.9 URI Upper 3:00p [facility] Respiratory Infections Acute Unspec Sites 462 Pharyngitis Acute Office Visit 08/19/2008 DO Not Use Radervin, V70.0 Examination 10:45a Yesenia Gold M.D. General [...] Not Use Marsha Kline, 461.9 Sinusitis Acute [facility] Unspec Office Visit 03/05/2008 3:00p DO [...] Visit 10/12/2007 12:15p DO Not Use Philomena Misty, 466.0 Bronchitis Acute Yesenia Ravi, FACP Office Visit 08/16/2007 2:45p DO Not Use [place]ki, V70.0 Examination Yesenia Gold M.D. General Medical [...] Benign Office Visit 03/29/2007 DO Not Use Rad[place]ki, 250.02 Diabetes 3:15p Yesenia Gold M.D. Mellitus W/O Compl Type II Or Unspec Type Uncontrol 401.1 Hypertension Benign 719.46 Pain Joint Lower Leg Office Visit 03/08/2007 DO Not Use Rad[place]ki, 250.00 Diabetes 2:30p Yesenia Gold M.D. Mellitus W/O Compl Type II Or Unspec Controlled 401.1 Hypertension Benign Plan of Treatment Future Appointment(s):03/20/2018 1:20 pm - Noa Fernandez M.D. at [facility]04/27/2018 10:40 am - Noa Fernandez M.D. at [facility]03/14/2018 - Jerman Russell M.D.I25.10 Atherosclerotic heart disease of [place] coronary artery withI35.0 Nonrheumatic aortic (valve) stenosisNew Orders:Echocardiogram, Ordered: 03/14/18New Therapy: Cardiac RehabFollow up:Early Apr 2018Recommendations:Metoprolol sent to [facility].2 Presence of prosthetic heart valve
[2018-03-30] MEDS ORDERED: Pantoprazole IV* 40 MG IV ONE (20:55)
[2018-03-30] MEDS ORDERED: Ondansetron INJ* 2 MG/ML VIAL ONE (20:55)
[2018-03-30] MEDS ORDERED: Morphine VIAL* 4 MG/ML VIAL (1 ml vial) ONE (20:57)
[2018-03-30] MEDS ORDERED: Morphine VIAL* 4 MG/ML VIAL (1 ml vial) IV ONE (21:00)
--- NOTE | 2018-03-30 21:00 | ED ---
Abdominal Pain/Male - HPI Summary HPI Summary: This patient is a 78 year old M brought in by ambulance to [facility] accompanied by with a chief complaint of left-sided rib pain that began approximately on 03/06/2018. The patient rates the pain 7/10 in severity. Symptoms aggravated by nothing. Symptoms alleviated by nothing. Patient reports vomiting (3 times), hematemesis, and SOB. Patient denies diarrhea and back pain. Patient had a CABG with AVR and double bypass on 02/28/2018 and has been doing well since. reports they had dinner with lots of fried food earlier tonight at 1800. - History of Current Complaint Chief Complaint: EDChestPainROMI Stated Complaint: CHEST PAIN/SOB/NAUSEA Time Seen by Provider: 03/30/18 20:41 Hx Obtained From: Patient Onset/Duration: Sudden Onset, Lasting Weeks, Worse Since - Earlier today Timing: Constant Severity Initially: Moderate Severity Currently: Moderate Pain Intensity: 7 Pain Scale Used: 0-10 Numeric Location: Other - Left rib pain Radiates: No Aggravating Factor(s): Nothing Alleviating Factor(s): Nothing Associated Signs And Symptoms: Positive: Other - Positive vomiting (3 times), hematemesis, and SOB. Negative diarrhea and back pain. - Allergies/Home Medications Allergies/Adverse Reactions: Allergies Allergy/AdvReac Type Severity Reaction Status Date / Time codeine Allergy Nausea Verified 02/06/18 17:03 metformin Allergy Diarrhea Verified 02/06/18 17:03 PMH/Surg Hx/FS Hx/Imm Hx Previously Healthy: No Endocrine/Hematology History: Reports: Hx Diabetes - II requiring insulin Denies: Hx Anticoagulant Therapy, Hx Blood Disorders, Hx Blood Transfusions, Hx Systemic Lupus Erythematosus, Hx Sickle Cell Disease, Hx Thyroid Disease, Hx Unexplained Bleeding Cardiovascular History: Reports: Hx Angina, Hx Coronary Artery Disease - CATH 2011 NO STENTS, Hx Hypercholesterolemia, Hx Hypertension - WELL CONTROLLED, Hx Valvular Heart Disease - aortic stenosis, Other Cardiovascular Problems/ Disorders - MURMUR, "LEAKY VALVE" Denies: Hx Congenital Heart Disease, Hx Congestive Heart Failure, Hx Embolism , Hx Myocardial Infarction, Hx Pacemaker/ICD, Hx Rheumatic Fever, Hx Syncope Respiratory History: Reports: Hx Sleep Apnea, Other Respiratory Problems/ Disorders - PNA Denies: Hx Asthma, Hx Bronchopulmonary Dysplasia, Hx Chronic Bronchitis, Hx Chronic Obstructive Pulmonary Disease (COPD), Hx Cystic Fibrosis, Hx Lung Cancer , Hx Pneumonia, Hx Pulmonary Embolism, Hx Seasonal Allergies GI History: Denies: Hx Crohn's Disease, Hx Gall Bladder Disease, Hx Gastroesophageal Reflux Disease, Hx Gastrointestinal Bleed, Hx Hiatal Hernia, Hx Ileostomy, Hx Pyloric Stenosis, Hx Ulcer History: Denies: Hx Benign Prostatic Hyperplasia, Hx Chronic Renal Failure, Hx Dialysis, Hx Kidney Stones, Hx Renal Disease Musculoskeletal History: Reports: Hx Gout Denies: Hx Rheumatoid Arthritis, Hx Back Problems, Hx Congenital Bone Abnormalities, Hx Fibromyalgia, Hx Orthopedic Injury, Hx Osteoporosis, Hx Tendonitis Sensory History: Reports: Hx Contacts or Glasses Denies: Hx Cataracts, Hx Eye Injury, Hx Eye Prosthesis, Hx Glaucoma, Hx Legally Blind, Hx Macular Degeneration, Hx Vision Problem, Hx Deafness, Hx Hearing Aid, Hx Hearing Problem Opthamlomology History: Reports: Hx Contacts or Glasses Denies: Hx Cataracts, Hx Eye Injury, Hx Eye Prosthesis, Hx Glaucoma, Hx Legally Blind, Hx Macular Degeneration, Hx Vision Problem Psychiatric History: Denies: Hx Anxiety, Hx Eating Disorder, Hx Oppositional [place] Disorder, Hx Depression, Hx Panic Disorder, Hx Post Traumatic Stress Disorder, Hx Inpatient Treatment, Hx Community Mental Health Tx, Hx Schizophrenia, Hx Bipolar Disorder, Hx Suicide Attempt, Hx of Violent Episodes Against Others, Other Psychiatric Issues/Disorders - Cancer History Hx Chemotherapy: No Hx Palliative Cancer Treatment: No - Surgical History Surgery Procedure, Year, and Place: [facility] Hx Anesthesia Reactions: No Infectious Disease History: No Infectious Disease History: Denies: Hx Clostridium Difficile, Hx Hepatitis, Hx of Known/Suspected MRSA, Hx Shingles, Hx Tuberculosis, Hx Known/Suspected VRE, Hx Known/Suspected VRSA, Traveled Outside the [place] in Last 30 Days - Family History Known Family History: Positive: Diabetes, Other - CHF - Social History Occupation: Retired Lives: With Family Alcohol Use: Rare Alcohol Amount: 4 NIGHTS/WEEK Substance Use Type: Reports: None Hx Tobacco Use: No Smoking Status (MU): Former Smoker Type: Cigarettes Have You Smoked in the Last Year: No Review of Systems Positive: Shortness Of Breath Positive: Abdominal Pain, Vomiting, Other - Positive hematemesis. Negative: Diarrhea Positive: Other - Negative back pain All Other Systems Reviewed And Are Negative: Yes Physical Exam - Summary Physical Exam Summary: VITAL SIGNS: Reviewed. GENERAL:Patient is a well-developed and nourished male. Patient is not in any acute respiratory distress. Patient seems uncomfortable because of vomiting. HEAD AND FACE: No signs of trauma. No ecchymosis, hematomas or skull depressions. No sinus tenderness. EYES: PERRLA, EOMI x 2, No injected conjunctiva, no nystagmus. EARS: Hearing grossly intact. Ear canals and tympanic membranes are within normal limits. MOUTH: Oropharynx within normal limits. NECK: Supple, trachea is midline, no adenopathy, no JVD, no carotid bruit, no c- spine tenderness, neck with full ROM. CHEST: Symmetric, no tenderness at palpation LUNGS: Clear to auscultation bilaterally. No wheezing or crackles. CVS: Regular rate and rhythm, S1 and S2 present, no murmurs or gallops appreciated. ABDOMEN: Soft. No rebound no guarding, and no masses palpated. Abdomen is distended, non-tender, with hypoactive bowel sounds. EXTREMITIES: FROM in all major joints, no edema, no cyanosis or clubbing. NEURO: Alert and oriented x 3. No acute neurological deficits. Speech is normal and follows commands. SKIN: Dry and warm Triage Information Reviewed: Yes Vital Signs On Initial Exam: Initial Vitals Pulse Resp BP Pulse Ox 63 25 210/114 97 03/30/18 20:33 03/30/18 20:33 03/30/18 20:33 03/30/18 20:33 Vital Signs Reviewed: Yes Diagnostics - Vital Signs Vital Signs Temp Pulse Resp BP Pulse Ox 03/30/18 20:37 98.4 F 64 18 210/114 96 03/30/18 20:35 69 18 98 03/30/18 20:33 63 25 210/114 97 - Laboratory Result Diagrams: 03/30/18 21:10 03/30/18 21:10 Lab Statement: Any lab studies that have been ordered have been reviewed, and results considered in the medical decision making process. - Radiology Chest XR Radiology Interpretation Completed By: ED Physician Summary of Radiographic Findings: CXR reveals, per ED physician, small left pleural effusion. - CT CT Chest/Abdomen/Pelvis CT Interpretation Completed By: Radiologist Summary of CT Findings: CT abdomen, chest, and pelvis reveals, per radiologist, 1. Cholelithiasis with a 3 mm calcification in the gallbladder neck/cystic duct region with minimal gallbladder wall thickening. No pericholecystic stranding. If there is clinical concern for cholecystitis, right upper quadrant ultrasound or HIDA scan may be helpful. 2. Slight increase in size of 2 cystic lesions in right kidney. The largest consistent with a parapelvic cyst. The smaller lesion measures higher than simple fluid density today, possibly secondary to internal hemorrhage. This could be further assessed with renal ultrasound if indicated. 3. New moderate left pleural effusion and left lower lobe atelectasis. Interval CABG. See separate chest CT report. - EKG 2039 Cardiac Rate: NL EKG Rhythm: Sinus Rhythm - [address] Segment: Non-Specific Summary of EKG Findings: An EKG taken at 2039 reveals sinus rhythm at 62 BPM with LVH and non-specific T wave changes in the inferior leads. Abdominal Pain Fem Course/Dx - Course Assessment/Plan: This patient is a 78 year old M brought in by ambulance to [facility] accompanied by with a chief complaint of left-sided abd pain that began approximately on 03/06/2018. Patient had a CABG with AVR and double bypass on 02/28/2018. reports they had dinner with lots of fried food at 1800. Physical Exam Findings: Patient seems uncomfortable because of vomiting. Abdomen is distended, non-tender, with hypoactive bowel sounds. An EKG taken at 2039 reveals sinus rhythm at 62 BPM with LVH and non-specific T wave changes in the inferior leads. CXR reveals, per ED physician, small left pleural effusion. CT abdomen, chest, and pelvis reveals, per radiologist, 1. Cholelithiasis with a 3 mm calcification in the gallbladder neck/cystic duct region with minimal gallbladder wall thickening. No pericholecystic stranding. If there is clinical concern for cholecystitis, right upper quadrant ultrasound or HIDA scan may be helpful. 2. Slight increase in size of 2 cystic lesions in right kidney. The largest consistent with a parapelvic cyst. The smaller lesion measures higher than simple fluid density today, possibly secondary to internal hemorrhage. This could be further assessed with renal ultrasound if indicated. 3. New moderate left pleural effusion and left lower lobe atelectasis. Interval CABG. See separate chest CT report. Bloodwork and UA obtained. In the ED course the patient was given fentanyl, contrast, Zofran, morphine, Protonix, Trandate, and Apresoline. Consult with Dr. Good (hospitalist) at 0045. She agrees to admit the patient for further evaluation. The patient is agreeable with this plan. - Diagnoses Provider Diagnoses: Hematemesis, Cholelithiases - Provider Notifications Discussed Care Of Patient With: Cari Good Time Discussed With Above Provider: 00:45 Instructed by Provider To: Other - Consult with Dr. Good (hospitalist) at 0045. She agrees to admit the patient for further evaluation. Discharge - Sign-Out/Discharge Documenting (check all that apply): Patient Departure - Admit to [facility] - Discharge Plan Condition: Stable Disposition: ADMITTED TO [facility] Referrals: Noa Fernandez MD [Primary Care Provider] - - Attestation Statements Document Initiated by Scribe: Yes Documenting Scribe: Cinthya Barillas Provider For Whom Ghazal is Documenting (Include Credential): Dr. Goyo Jordan MD Scribe Attestation: ICinthya, scribed for Dr. Goyo Jordan MD on 03/31/18 at 0059. Status of Scribe Document: Ready
[2018-03-30] MEDS ORDERED: Ondansetron INJ* 2 MG/ML VIAL IV ONE (21:01)
[2018-03-30 21:24] LABS: ABS Basophils 0.1 10^3/ul (0-0.2); ABS Eosinophils 0.3 10^3/ul (0-0.6); ABS Lymphocytes 0.7 10^3/ul (1.0-4.8); ABS Monocytes 0.9 10^3/ul (0-0.8); ABS Neutrophils 5.3 10^3/ul (1.5-7.7); ABS Nucleated RBC 0 10^3/ul; Eosinophil % 3.6 %; Hematocrit 33 % (42-52); Hemoglobin 11.1 g/dl (14.0-18.0); Lymphocyte % 9.2 %; Mean Corpuscular HGB Conc 34 g/dl (31-36); Mean Corpuscular Hemoglobin 30 pg (27-31); Mean Corpuscular Volume 91 fL (80-94); Mean Platelet Volume 8.4 fL (7.4-10.4); Nucleated Red Blood Cells % 0; Platelet Count 190 10^3/ul (150-450); Red Blood Count 3.64 10^6/ul (4.00-5.40); Red Cell Distribution Width 15 % (10.5-15); White Blood Count 7.1 10^3/ul (3.5-10.8)
[2018-03-30] MEDS: Pantoprazole* 80 mg IN NS 80 MG/250 ML BAG IVPB SCH (21:29)
[2018-03-30 21:33] LABS: INR 1.01 (0.77-1.02)
[2018-03-30] MEDS ORDERED: fentaNYL* 50 MCG/ML 2 ML VIAL (100 MCG VIAL) ONE (21:36)
[2018-03-30] MEDS ORDERED: fentaNYL* 50 MCG/ML 2 ML VIAL (100 MCG VIAL) IV SLOW PU ONE (21:42)
[2018-03-30 21:47] LABS: EGFR Non-African American 70.5 (>60)
[2018-03-30] MEDS ORDERED: Iodixanol* (CONTRAST) 320 MG/ML 100 ML SDV IV ONE (22:08)
[2018-03-30] MEDS: Labetalol IV* 5 MG/ML 20 ML VIAL IV PUSH ONE ×2 (22:46→23:22)
[2018-03-30 23:00] LABS: Urine Appearance Clear; Urine Blood Negative (Negative); Urine Color Yellow; Urine Ketones Trace (Negative); Urine Protein 2+(100 mg/dL) (Negative); Urine Red Blood Cell Trace(0-2/hpf) (Absent); Urine Specific Gravity 1.019 (1.010-1.030); Urine Urobilinogen Negative (Negative); Urine White Blood Cell Trace(0-5/hpf) (Absent)
[2018-03-31] MEDS ORDERED: hydrALAZINE IV* 20 MG/ML VIAL IV SLOW PU ONE (00:13)
[2018-03-31] MEDS ORDERED: NS 0.9% 1000 ML* 1,000 ML IV SCH (01:30)
[2018-03-31] MEDS ORDERED: Ondansetron INJ* 2 MG/ML VIAL IV PRN (01:39)
[2018-03-31] MEDS ORDERED: Morphine VIAL* 4 MG/ML VIAL (1 ml vial) IV PRN (01:39)
[2018-03-31] MEDS ORDERED: Dextrose 50% Syringe 50 ML* 25 GM/50 ML SYRINGE IV PUSH PRN (01:43)
[2018-03-31] MEDS ORDERED: hydrALAZINE IV* 20 MG/ML VIAL IV SLOW PU PRN (01:46)
[2018-03-31] MEDS: Insulin LISPRO* 1 UNITS UNIT SUBCUT SCH ×3 (02:56→10:04)
--- NOTE | 2018-03-31 05:16 | HP ---
CC: Dr. Fernandez; Dr. Russell HISTORY AND PHYSICAL: DATE OF ADMISSION: 03/31/18 TIME OF EVALUATION: 1:15 a.m. PRIMARY CARE PROVIDER: Dr. Fernandez. CAN FILLING MACHINE OPERATOR: Dr. Russell. CHIEF COMPLAINT: Abdominal pain. HISTORY OF PRESENT ILLNESS: Mr. Dillard is a 78-year-old male with a past medical history of hypertens ion, diabetes, obstructive sleep apnea, gout, coronary artery disease, who was recently admitted on 04/26/17 with complaints of chest pain, found to have EKG changes and cardiac cath showing significant coronary artery disease and recommendation was for transfer to [facility]. The patient state s that he underwent a 2-vessel bypass and biological aortic valve replacement with Dr. Guerrero and w as discharged home around 03/06/18. He states that he was feeling relatively well postop, had starte d cardiac rehab and although he was still fatigued and "out of shape," he felt that he was making pro sharon. He states that last night around 6, his served dinner and it was [employer] fish pfeiffer with [place]ish fri es and coleslaw. The patient states that shortly after the meal, he started to experience epigastric discomfort radiating to his sides associated with multiple episodes of nausea and vomiting. He stat es that he tried to burp multiple times with no significant improvement. He stated that the pain con tinued to progress and it became severe, reason why EMS was called. He was concerned that something was happening to his heart. EMS administered Zofran, aspirin, and nitro with no significant relief. While in the emergency room, the patient had 1 episode of vomiting that was described as large amoun ts of blood. At the time of my evaluation, the patient had received multiple medications including f entanyl and he states that he felt much better. There was no fever, chills, diarrhea, palpitation, s hortness of breath, or other complaints. PAST MEDICAL HISTORY: 1. Hypertension. 2. Diabetes. 3. Obstructive sleep apnea. 4. Gout. 5. Coronary artery disease, status post 2-vessel CABG. 6. Aortic stenosis, status post biological aortic valve replacement on 03/01/18 at [facility] . PAST SURGICAL HISTORY: 1. CABG and aortic valve replacement as above. 2. Status post rotator cuff repair x 4. 3. Status post hemorrhoidectomy. MEDICATIONS: 1. Aspirin 81 mg p.o. q. a.m. 2. Atorvastatin 20 mg p.o. daily. 3. Cholecalciferol 1000 mcg p.o. daily. 4. Cyanocobalamin 2000 mcg p.o. daily. 5. Doxazosin 2 mg p.o. at bedtime. 6. Eplerenone 50 mg p.o. q.a.m. 7. Felodipine 10 mg p.o. q.a.m. 8. Hydrochlorothiazide 25 mg p.o. q.a.m. 9. Insulin aspart 14 units subcutaneously t.i.d. before meals. 10. Insulin detemir 66 units subcutaneously daily. 11. Irbesartan 300 mg p.o. daily. 12. Multivitamin 1 tablet p.o. daily. 13. Fish oil 1000 mg p.o. daily. 14. Cialis 5 to 10 mg p.o. daily as needed for erectile dysfunction. ALLERGIES: With CODEINE, the patient experienced nausea and with METFORMIN, he experienced diarrhea. FAMILY HISTORY: Mother lived to age 88, of CHF. Father at 93, had history of diabetes. SOCIAL HISTORY: No history of tobacco, alcohol, or drug use. Surrogate decision maker is his , Louann Dillard, phone number is [phone]. REVIEW OF SYSTEMS: A 14-point review of systems was performed, and all the pertinent negative and po sitive findings are in the HPI. PHYSICAL EXAMINATION GENERAL: The patient is a pleasant elderly male, lying in the ED stretcher, appears to be comfortabl e now, in no acute distress. VITAL SIGNS: Temperature 98.4, heart rate is 80, respiratory rate is 17, oxygen saturation is 97% on room air, blood pressure is 156/91. HEENT: Pupils are equal, reactive to light. Moist mucous membranes. No scleral icterus. CHEST: Breath sounds present bilaterally with no added sounds, decreased in the left base. His mid sternal incision is well healed with just 1 small scabbed area in the center but no erythema or disch arge. CVS: Normal S1, S2. Regular rate and rhythm. ABDOMEN: Soft, nontender, and nondistended. Bowel sounds are present. EXTREMITIES: No edema. NEURO: He is alert and oriented x3. Able to move all 4 extremities. DIAGNOSTIC STUDIES/LAB DATA: The patient had a CBC that showed a WBC of 7.1, hemoglobin of 11.1, he matocrit of 33, and platelets of 190 with 74% neutrophils. INR is 1.01. Chemistry showed a sodium of 134, potassium of 4, chloride of 101, bicarb of 27, BUN of 24, creatinine of 1.02, glucose of 156, l actic acid is 0.9, calcium is 9.1. LFTs were normal. CRP is 12.85. Lipase was slightly elevated at 88. Urinalysis showed 2+ protein, trace ketones, hyaline casts were present. EKG done, 03/30/18, at 2040 showed sinus rhythm at 62 beats per minute with LVH, no acute ischemic ch anges. This is improved when compared to his prior EKG when he was having frequent PVCs. CTA of the chest, abdomen, and pelvis showed no pulmonary embolus, status post CABG with stranding an d small amount of fluid in the anterior mediastinal fat and retrosternal region, likely post surgical . No abscess, no pericardial effusion. Healing fractures in the left ribs 1, 2, 4, and 5. New moder ate left pleural effusion with left lower lobe atelectasis and right renal cyst. In the abdomen, the patient was found to have cholelithiasis with a 3-mm calcification in the gallbladder neck/cystic du ct with minimal gallbladder wall thickening. No pericholecystic stranding. There is clinical concer n for cholecystitis. A right upper quadrant ultrasound or HIDA scan may be helpful. Slight increase in size of 2 cystic lesions in the right kidney. ASSESSMENT AND PLAN: Mr. Dillard is a 78-year-old male with a past medical history of hypertension, di abetes, obstructive sleep apnea, gout, coronary artery disease, and aortic stenosis, status post rece nt 2-vessel coronary artery bypass graft and biological aortic valve replacement, who presents to the emergency room with complaints of abdominal pain, nausea, and vomiting after eating a greasy meal. C linical picture compatible with biliary colic. 1. Biliary colic. I believe the patient's sudden onset of abdominal pain, nausea, and vomiting afte r a very greasy meal is compatible with biliary colic in conjunction with the findings on his CTA of the abdomen and pelvis. He does not appear to have cholecystitis at this time. His liver function t ests are normal and he has only slight elevation of his lipase. He will receive IV hydration, sympto matic treatment, and he will be kept on a clear liquid diet at this time. I am going to pursue a rig ht upper quadrant ultrasound in the morning plus/minus a HIDA scan. At this point, I believe antibio tics are not indicated and if his symptoms resolve, he would prefer to see a surgeon as outpatient co nsidering he is just recovering from major cardiac surgery. He is aware that if his symptoms persist or if he develops signs of cholecystitis, he may need to have a cholecystectomy during this admissio n. 2. Hematemesis. Likely secondary to [place] tear in the setting of recurrent nausea and vomit ing secondary to biliary colic. I am going to monitor the patient's H and H and with his history of recent coronary artery bypass graft, we are going to continue his low-dose aspirin. GI will be conta cted in the morning to see if an upper endoscopy is indicated. In the meantime, the patient will be continued on a Protonix drip. 3. Coronary artery disease. The patient has no new EKG changes, troponins are negative so far. He will be continued on his aspirin, atorvastatin, calcium channel cam, and ARB. 4. Type 2 diabetes. As the patient is going to be on clear liquid diet only, I am going to give him half of his dose of glargine and cover with lispro sliding scale. 5. DVT prophylaxis. The patient has a score of 3 on the DVT Prophylaxis Risk Assessment Guide and f or now he is going to have SCDs only considering his episode of hematemesis. 6. Code status is full. TIME SPENT: Approximately 60 minutes was spent with the patient interview, medical records review, p hysical examination to complete this admission, more than half of this time was spent [id number] wi th the patient in coordination of care. [id number]/[facility] #: [id number]
[2018-03-31] MEDS ORDERED: Heparin VIAL(*) 5000 UNITS/ML VIAL (FIVE THOUSAND) SUBCUT SCH (06:00)
[2018-03-31 08:19] LABS: ABS Basophils 0 10^3/ul (0-0.2); ABS Eosinophils 0.2 10^3/ul (0-0.6); ABS Lymphocytes 0.7 10^3/ul (1.0-4.8); ABS Monocytes 0.8 10^3/ul (0-0.8); ABS Nucleated RBC 0 10^3/ul; Eosinophil % 3.3 %; Hematocrit 31 % (42-52); Hemoglobin 10.5 g/dl (14.0-18.0); Lymphocyte % 12.6 %; Mean Corpuscular HGB Conc 34 g/dl (31-36); Mean Corpuscular Hemoglobin 31 pg (27-31); Mean Corpuscular Volume 91 fL (80-94); Mean Platelet Volume 8.3 fL (7.4-10.4); Nucleated Red Blood Cells % 0.1; Platelet Count 172 10^3/ul (150-450); Red Cell Distribution Width 15 % (10.5-15); White Blood Count 5.7 10^3/ul (3.5-10.8)
[2018-03-31 08:32] LABS: EGFR Non-African American 72.9 (>60)
[2018-03-31] MEDS ORDERED: Atorvastatin* 20 MG TAB PO SCH (09:00)
[2018-03-31] MEDS ORDERED: Insulin GLARGINE(*) 1 UNITS UNIT SUBCUT SCH (09:00)
[2018-03-31] MEDS ORDERED: Losartan TAB* 25 MG PO SCH (09:00)
[2018-03-31] MEDS ORDERED: amLODIPine TAB* 5 MG PO SCH (09:00)
[2018-03-31] MEDS: Pantoprazole* 80 mg IN NS 80 MG/250 ML BAG IVPB SCH (09:54)
--- NOTE | 2018-03-31 12:05 | PN ---
Subjective Date of Service: 03/31/18 Interval History: Mr. Dillard has remained free of abdominal pain or nausea/vomiting. He denies other complaint and is eager for discharge to home. Objective Active Medications: Amlodipine Besylate (Norvasc Tab*) 5 mg PO DAILY [facility] Aspirin (Aspirin 81 Mg Chew Tab*) 81 mg PO QAM [facility] Atorvastatin Calcium (Lipitor*) 20 mg PO DAILY [facility] Dextrose (D50w Syringe 50 Ml*) 12.5 gm IV PUSH .FOR FS < 60 - SS PRN Doxazosin Mesylate (Cardura Tab*) 2 mg PO BEDTIME EDWIN Hydralazine HCl (Apresoline Iv*) 5 mg IV SLOW PU Q6H PRN Pantoprazole Sodium (Protonix Iv Bag*) 80 mg in 250 mls @ 25 mls/hr IVPB Q10H [facility] Sodium Chloride (Ns 0.9% 1000 Ml*) 1,000 mls @ 100 mls/hr IV PER RATE [facility] Insulin Glargine (Lantus(*)) 30 units SUBCUT DAILY [facility] Insulin Human Lispro (Humalog*) 0 units SUBCUT Q4HR [facility]; Protocol Losartan Potassium (Cozaar Tab*) 50 mg PO DAILY [facility] Morphine Sulfate (Morphine Vial*) 1 mg IV Q1H PRN Ondansetron HCl (Zofran Inj*) 4 mg IV Q6H PRN Vital Signs: Temp Pulse Resp BP Pulse Ox 98.2 F 62 16 147/54 97 03/31/18 11:22 03/31/18 11:22 03/31/18 11:22 03/31/18 11:22 03/31/18 11:22 Oxygen Devices in Use Now: None Appearance: Male lying in bed in NAD Eyes: No Scleral Icterus Ears/Nose/Mouth/Throat: Mucous Membranes Moist Neck: Trachea Midline Respiratory: Symmetrical Chest Expansion and Respiratory Effort, Clear to Auscultation Cardiovascular: NL Sounds; No Murmurs; No JVD, No Edema Abdominal: NL Sounds; No Tenderness; No Distention Extremities: No Edema Skin: No Rash or Ulcers Neurological: Alert and Oriented x 3, NL Muscle Strength and Tone Nutrition: Taking PO's Result Diagrams: 03/31/18 08:01 03/31/18 08:01 Assess/Plan/Problems-Billing Assessment: Mr. Dillard is a 78 yo M with a PMH of who was admitted on 03/30/18 with abdominal pain with concern for biliary colic now with signs of acute cholecystitis via GB US. - Patient Problems (1) Cholecystitis Comment: - Cholecystitis ruled out - GB US with wall thickening and pericholecystic fluid, HIDA negative, no pain. LFTs essentially normal, no signs of sepsis - Suspect he passed a gall stone, plan for short (5day) course of abx and recommend follow up with surgery in 6 weeks for consideration of GB removal if he so chooses (2) Chronic diastolic (congestive) heart failure Comment: - No evidence of acute exacerbation. Lungs clear. No or JVD edema noted. - Echo 02/08 with moderate to severe LVH and abnormal LV diastolic function. EF 55-60% (3) Aortic stenosis Comment: - Asymptomatic - No s/p biologic aortic valve replacement 02/2018 (4) CAD (coronary artery disease) Comment: - Continue aspirin and atorvastatin (5) Hypertension Comment: - SBP 140-150s - Resume home meds. (6) Diabetes Comment: - BGs 200s - Resume home meds (7) DVT prophylaxis Comment: - SQ heparin (8) Full code status Comment: Status and Disposition: OBV. Discharge to home.
[2018-03-31] MEDS ORDERED: Ciprofloxacin 400MG IVPREMIX(* 400 MG/200 ML BAG IVPB SCH (13:00)
[2018-03-31] MEDS ORDERED: metroNIDAZOLE IV 500 MG/100ML* 500 MG/100 ML BAG IVPB SCH (14:00)
[2018-03-31 16:35] VITALS: BP 154/62
[2018-03-31] MEDS ORDERED: Doxazosin TAB* 2 MG PO SCH (21:00)
--- NOTE | 2018-04-01 05:20 | DS ---
CC: Dr. Fernandez * HOSPITAL MEDICINE DISCHARGE SUMMARY: DATE OF ADMISSION: 03/31/18 DATE OF DISCHARGE: 03/31/18 PRIMARY CARE PHYSICIAN: Dr. Fernandez. ATTENDING PHYSICIAN: Dr. Colton Reyes * (dictation provided by Erlinda Cramre NP). PRIMARY DIAGNOSIS: Biliary colic, now resolved. SECONDARY DIAGNOSES: 1. History of biologic aortic valve replacement, February 2018. 2. Hypertension. 3. Insulin-dependent diabetes. 4. Obstructive sleep apnea. 5. Gout. 6. Coronary artery disease, status post 2-vessel coronary artery bypass grafting. PAST SURGICAL HISTORY: 1. CABG and aortic valve replacement as per above. 2. Status post rotator cuff repair x 4. 3. Status post hemorrhoidectomy. MEDICATIONS AT TIME OF DISCHARGE: 1. Cyanocobalamin 2000 mcg p.o. daily. 2. Cholecalciferol 1 tab p.o. daily. 3. Atorvastatin 20 mg p.o. daily. 4. Aspirin 81 mg p.o. q.a.m. 5. Hydrochlorothiazide 25 mg p.o. q.a.m. 6. Felodipine 10 mg p.o. q.a.m. 7. Eplerenone 50 mg p.o. q.a.m. 8. Doxazosin 2 mg p.o. at bedtime. 9. Guthrie-3 fatty acid 1000 mg p.o. b.i.d. 10. Multivitamin with mineral 1 tab p.o. daily. 11. Irbesartan 300 mg p.o. daily. 12. Levemir insulin 66 units subcutaneously daily. 13. NovoLog insulin 14 units subcutaneously t.i.d. 14. Metronidazole 500 mg p.o. t.i.d. x4 days. 15. Ciprofloxacin 500 mg p.o. b.i.d. x4 days. HOSPITAL COURSE: Mr. Dillard is a 78-year-old male with a past medical history of recent aortic valve replacement, coronary artery disease, and diabetes, who presented to the hospital on 03/31/18 with concern for abdominal pain and nausea and vomiting. Please see the dictated H and P from Dr. Aguilar for complete details. 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 In the emergency room, he had labs which showed normal LFTs. He had no leukocytosis. His electrolytes were normal. His BUN and creatinine were normal. His vital signs were stable. He had a CTA chest, abdomen, and pelvis, which showed "cholelithiasis with a 3-mm calcification in the gallbladder neck, cystic duct region with minimal gallbladder wall thickening. No pericholecystic stranding. There was a slight increase in the size of 2 cystic lesions in the right kidney, largest consistent with a parapelvic cyst, the smaller lesion measures higher than simple fluid density today, possibly secondary to internal hemorrhage. This could be further assessed with renal ultrasound if indicated." The patient also has a new moderate left pleural effusion and left lower lobe atelectasis and interval CABG noted. Mr. Dillard was admitted to the hospital on observation status. It was suspected that likely symptoms were related to biliary colic. The patient was observed overnight. He had an abdominal ultrasound, which showed the following: "Gallbladder wall thickening with gallstones and pericholecystic fluid without sonographic Nelson's sign. The imaging appearance is indeterminate for but suggestive of acute cholecystitis." For this reason and for the presence of the stone near the cystic duct on CT scan, he did go on for HIDA scan that showed no definite filling of the gallbladder with radiotracer indicating no indication of cystic duct stenosis or obstruction. Mr. Dillard has remained pain free. He has had no nausea, no vomiting. He has tolerated clear liquids well. Our suspicion is that he did not have cholecystitis, but he likely passed a gallstone consistent with biliary colic. Plans are for Mr. Dillard to be discharged to home. wWe do plan to complete a 5- day course with Shiela and Lala to cover for any possible early development cholecystitis. He has been recommended he can follow up with [facility] or another surgeon of his choosing within the next 6 weeks and that he should certainly return to the ED with abdominal pain, nausea, or vomiting. DISPOSITION: Home. DIET: Low fat, low salt, low carb. ACTIVITY: As tolerated. FOLLOWUP PLANS: 1. Please follow up with Dr. Fernandez within the next week regarding this hospitalization. 2. Please follow up with surgeon of your choosing within the next 6 weeks for consideration of removal of gallbladder. TIME SPENT: Approximately 75minutes was spent on discharge of this patient, more than half time spent with the patient at the bedside reviewing the events leading up to and during this hospitalization, performing the physical examination, and reviewing my plan of care. ERLINDA CRAMER NP [id number]/[facility] #: [id number] FAVIOLA
[2018-04-01] MEDS ORDERED: Aspirin 81 mg CHEW TAB* 81 MG TAB.CHEW PO SCH (09:00)
== END 2018-03-31 17:36 | disposition home or self-care (01) ==
LOC: ED 20:18 → MEDTELE 03-31 01:17
PROVIDERS: ADMIT Internal Medicine; ATTEND Internal Medicine
DX: K80.50 Calculus of bile duct without cholangitis or cholecystitis without obstruction (principal); I10 Essential (primary) hypertension; E11.9 Type 2 diabetes mellitus without complications; Z79.4 Long term (current) use of insulin; G47.33 Obstructive sleep apnea (adult) (pediatric); M10.9 Gout, unspecified; I25.10 Atherosclerotic heart disease of native coronary artery without angina pectoris; Z95.4 Presence of other heart-valve replacement; Z95.5 Presence of coronary angioplasty implant and graft; Z88.0 Allergy status to penicillin; I50.32 Chronic diastolic (congestive) heart failure; Z79.82 Long term (current) use of aspirin
CPT/HCPCS: 36415; 71045; 71275; 74177; 76705; 78226; 80053; 81003; 81015; 82150; 83605; 83690; 84484; 85025; 85610; 85730; 86140; 86850; 86900; 86901; 87086; 93005; 96365; 96372; 96375; 96376; 99285; A9270-GY; A9537; G0378; J0744; J2270; J2405; J3010; J3490; Q9967

== ENCOUNTER 2018-04-05 16:37 | Inpatient (IN) | payer MEDICARE, BC ==
[2018-04-05] MEDS ORDERED: Ondansetron ODT TAB* 4 MG PO ONE (16:40)
[2018-04-05] MEDS ORDERED: NS 0.9% 1000 ML* 1,000 ML IV ONE (16:40)
[2018-04-05] MEDS ORDERED: Morphine VIAL* 4 MG/ML VIAL (1 ml vial) IV ONE ×2 (16:41→17:29)
--- NOTE | 2018-04-05 16:48 | ED ---
Abdominal Pain/Male - HPI Summary HPI Summary: A 78 y/o male brought in by [place] [facility] presents to [facility] with a chief complaint of abd pain since 12:00 04/05/18. Specifically in the RUQ. He rates the pain as 8/10. The patient claims he was eating fruit and yogurt at the time of onset. He denies N/V/D. He states that he may be constipated but his last bowel movement was today 04/05/18. He has HLD and DM. He takes aspirin daily. He states that he was diagnosed with gallbladder issues requiring surgery that was scheduled for 04/06/18 but to come to the ED if he had abd pain. - History of Current Complaint Stated Complaint: ABD PAIN Time Seen by Provider: 04/05/18 16:40 Hx Obtained From: Patient Onset/Duration: Sudden Onset, Lasting Hours, Still Present Timing: Constant, Lasting Hours Severity Initially: Severe Severity Currently: Severe Pain Intensity: 8 Pain Scale Used: 0-10 Numeric Location: Discrete At: RUQ Radiates: No Character: Sharp Aggravating Factor(s): Nothing Alleviating Factor(s): Nothing Associated Signs And Symptoms: Positive: Constipation. Negative: Nausea, Vomiting, Diarrhea - Allergies/Home Medications Allergies/Adverse Reactions: Allergies Allergy/AdvReac Type Severity Reaction Status Date / Time labetalol Allergy Unknown Verified 04/05/18 11:36 Reaction Details metformin AdvReac Severe Diarrhea Verified 04/05/18 22:32 codeine AdvReac Intermediate Nausea, gi Verified 04/05/18 22:32 UPSET Home Medications: Home Medications Amoxicillin PO (*) [Amoxicillin 500 MG CAP*] 2,000 mg PO ONCE PRN 04/05/18 [ History Confirmed 04/05/18] Docusate CAP* [Colace Cap*] 100 mg PO BID 04/05/18 [History Confirmed 04/05/18] Doxazosin TAB* [Cardura TAB*] 2 mg PO BEDTIME 04/05/18 [History Confirmed ] Insulin Detemir (NF) [Levemir (NF)] 66 unit SUBCUT BEDTIME 04/05/18 [History Confirmed 04/05/18] Sennosides [Senna Lax] 8.6 - 17.2 mg PO BID PRN 04/05/18 [History Confirmed 04/11] oxyCODONE TAB* [Roxycodone TAB 5 mg*] 5 mg PO .Q4-6H PRN 04/05/18 [History Confirmed 04/05/18] PMH/Surg Hx/FS Hx/Imm Hx Endocrine/Hematology History: Reports: Hx Diabetes - II requiring insulin Denies: Hx Anticoagulant Therapy, Hx Blood Disorders, Hx Blood Transfusions, Hx Systemic Lupus Erythematosus, Hx Sickle Cell Disease, Hx Thyroid Disease, Hx Unexplained Bleeding Cardiovascular History: Reports: Hx Angina, Hx Coronary Artery Disease - open heart surgery 03/01/2018 aortic valve replacent 2 bypasses, Hx Hypercholesterolemia, Hx Hypertension - WELL CONTROLLED, Hx Valvular Heart Disease - aortic stenosis, Other Cardiovascular Problems/Disorders - MURMUR, "LEAKY VALVE" Denies: Hx Congenital Heart Disease, Hx Congestive Heart Failure, Hx Embolism , Hx Myocardial Infarction, Hx Pacemaker/ICD, Hx Rheumatic Fever, Hx Syncope Respiratory History: Reports: Hx Sleep Apnea - CPAP, Other Respiratory Problems/ Disorders - PNA Denies: Hx Asthma, Hx Bronchopulmonary Dysplasia, Hx Chronic Bronchitis, Hx Chronic Obstructive Pulmonary Disease (COPD), Hx Cystic Fibrosis, Hx Lung Cancer , Hx Pneumonia, Hx Pulmonary Embolism, Hx Seasonal Allergies GI History: Denies: Hx Crohn's Disease, Hx Gall Bladder Disease, Hx Gastroesophageal Reflux Disease, Hx Gastrointestinal Bleed, Hx Hiatal Hernia, Hx Ileostomy, Hx Pyloric Stenosis, Hx Ulcer History: Denies: Hx Benign Prostatic Hyperplasia, Hx Chronic Renal Failure, Hx Dialysis, Hx Kidney Stones, Hx Renal Disease Musculoskeletal History: Reports: Hx Gout Denies: Hx Rheumatoid Arthritis, Hx Back Problems, Hx Congenital Bone Abnormalities, Hx Fibromyalgia, Hx Orthopedic Injury, Hx Osteoporosis, Hx Tendonitis Sensory History: Reports: Hx Cataracts - right eye, Hx Contacts or Glasses - glasses Denies: Hx Eye Injury, Hx Eye Prosthesis, Hx Glaucoma, Hx Legally Blind, Hx Macular Degeneration, Hx Vision Problem, Hx Deafness, Hx Hearing Aid, Hx Hearing Problem Opthamlomology History: Reports: Hx Cataracts - right eye, Hx Contacts or Glasses - glasses Denies: Hx Eye Injury, Hx Eye Prosthesis, Hx Glaucoma, Hx Legally Blind, Hx Macular Degeneration, Hx Vision Problem Psychiatric History: Denies: Hx Anxiety, Hx Eating Disorder, Hx Oppositional Neligh Disorder, Hx Depression, Hx Panic Disorder, Hx Post Traumatic Stress Disorder, Hx Inpatient Treatment, Hx Community Mental Health Tx, Hx Schizophrenia, Hx Bipolar Disorder, Hx Suicide Attempt, Hx of Violent Episodes Against Others, Other Psychiatric Issues/Disorders - Cancer History Hx Chemotherapy: No Hx Radiation Therapy: - skin Hx Palliative Cancer Treatment: No - Surgical History Surgery Procedure, Year, and Place: BILAT ROTATOR CUFF SURGERIES [facility]. HEMORRHOIDECTOMY [facility]. open heart surgery with double bypass and aortic vsalve replacement 02/2018. left eye cataract surgery with IOL Hx Anesthesia Reactions: No Infectious Disease History: Denies: Hx Clostridium Difficile, Hx Hepatitis, Hx of Known/Suspected MRSA, Hx Shingles, Hx Tuberculosis, Hx Known/Suspected VRE, Hx Known/Suspected VRSA - Family History Known Family History: Positive: Diabetes, Other - CHF - Social History Alcohol Use: Occasionally Alcohol Amount: 4 NIGHTS/WEEK Substance Use Type: Reports: None Hx Tobacco Use: No Smoking Status (MU): Former Smoker Type: Cigarettes Have You Smoked in the Last Year: No Review of Systems Negative: Fever Gastrointestinal: Other - Positive: Patient reports constipation but he had his last bowel movement today 04/05/18 Positive: Abdominal Pain. Negative: Vomiting, Diarrhea, Nausea All Other Systems Reviewed And Are Negative: Yes Physical Exam - Summary Physical Exam Summary: VITAL SIGNS: Reviewed. GENERAL: Patient is a well-developed and nourished male who is lying comfortable in the stretcher. Patient is not in any acute respiratory distress. HEAD AND FACE: Normocephalic and atraumatic. EYES: PERRLA, EOMI x 2, No injected conjunctiva. EARS: Hearing grossly intact. Ear canals and tympanic membranes are WNL. MOUTH: Oropharynx within normal limits. NECK: Supple, trachea is midline, no adenopathy, no JVD. CHEST: Symmetric, no tenderness at palpation LUNGS: Clear to auscultation bilaterally. No wheezing or crackles. CVS: RRR, S1 and S2 present, no murmurs or gallops appreciated. ABDOMEN: RUQ tenderness. No signs of distention. Positive bowel sounds. No rebound no guarding, and no masses palpated. No abdominal bruit or pulsations. EXTREMITIES: FROM in all major joints, no edema, no cyanosis or clubbing. NEURO: Alert and oriented x 3. No acute neurological deficits. Speech is normal. SKIN: Dry and warm Triage Information Reviewed: Yes Vital Signs Reviewed: Yes Diagnostics - Laboratory Result Diagrams: 04/06/18 05:37 04/06/18 05:37 Lab Statement: Any lab studies that have been ordered have been reviewed, and results considered in the medical decision making process. - Ultrasound No standard instances Ultrasound Interpretation Completed By: Radiologist Summary of Ultrasound Findings: GALLBLADDER US IMPRESSION: CHOLELITHIASIS AND FINDINGS SUGGESTIVE OF ACUTE CHOLECYSTITIS. ED physician has reviewed this imaging report. - EKG 16:46 Cardiac Rate: NL - 81 bpm EKG Rhythm: Sinus Rhythm Summary of EKG Findings: multiple PVCs, no ST elevations. Abdominal Pain Fem Course/Dx - Course Assessment/Plan: A 78 y/o male brought in by [place] [facility] presents to [facility] with a chief complaint of abd pain since 12:00 04/05/18. Specifically in the RUQ. He rates the pain as 8/10. The patient claims he was eating fruit and yogurt at the time of onset. He denies N/V/D. He states that he may be constipated but his last bowel movement was today 04/05/18. He has HLD and DM. He takes aspirin daily. He states that he was diagnosed with gallbladder issues requiring surgery that was scheduled for 04/06/18 but to come to the ED if he had abd pain. Blood work without any significant abnormality except for hemoglobin 11.5 hematocrit 34 consistent with an slight anemia. Sodium was 131 and chloride 98. CRP is 31.1 , BNP is 235, no evidence 28. Gallbladder ultrasound impression: cholelithiasis and findings suggestive of acute cholecystitis. In the ED course the patient was hydrated with IV fluids, he was given morphine 4 mg 2. At this time I discussed my physical exam and findings with Dr. Cho who would consult for the patient. Patient is hemodynamically stable alert and oriented 3. Patient will be signed out to Dr. Jordan at shift change. - Diagnoses Provider Diagnoses: Acute cholecystitis - Provider Notifications Discussed Care Of Patient With: Jese Cho Time Discussed With Above Provider: 18:00 Instructed by Provider To: MD Will See In ED - After discussing the case with Dr. Cho, he will see the patient in the ED. Discharge - Sign-Out/Discharge Documenting (check all that apply): Sign-Out Patient Signing out patient TO: Goyo Jordan - Discharge Plan Condition: Stable Disposition: ADMITTED TO [facility] - Billing Disposition and Condition Condition: STABLE - Attestation Statements Document Initiated by Scribe: Yes Documenting Scribe: Jacob Tim Provider For Whom Scribe is Documenting (Include Credential): Lance Nelson MD Scribe Attestation: I, Jacob Tim, scribed for Lance Nelson MD on 04/06/18 at [facility]. Scribe Documentation Reviewed: Yes Provider Attestation: The documentation as recorded by the Jacob soriano accurately reflects the service I personally performed and the decisions made by me, Lance Nelson MD Status of Scribe Document: Viewed Attestations User Type: Provider with Scribe Provider Attestation: The documentation recorded by the scribe accurately reflects the service I personally performed and the decisions made by me.
[2018-04-05 17:14] LABS: ABS Basophils 0.1 10^3/ul (0-0.2); ABS Eosinophils 0.4 10^3/ul (0-0.6); ABS Lymphocytes 0.8 10^3/ul (1.0-4.8); ABS Monocytes 1.1 10^3/ul (0-0.8); ABS Neutrophils 4.8 10^3/ul (1.5-7.7); ABS Nucleated RBC 0 10^3/ul; Eosinophil % 5.4 %; Hematocrit 34 % (42-52); Hemoglobin 11.5 g/dl (14.0-18.0); Lymphocyte % 11.3 %; Mean Corpuscular HGB Conc 33 g/dl (31-36); Mean Corpuscular Hemoglobin 30 pg (27-31); Mean Corpuscular Volume 89 fL (80-94); Mean Platelet Volume 8.1 fL (7.4-10.4); Nucleated Red Blood Cells % 0; Platelet Count 237 10^3/ul (150-450); Red Blood Count 3.88 10^6/ul (4.00-5.40); Red Cell Distribution Width 15 % (10.5-15); White Blood Count 7.3 10^3/ul (3.5-10.8)
[2018-04-05 17:36] LABS: Albumin 3.7 g/dL (3.2-5.2); Albumin/Globulin Ratio 1.2 (1-3); BUN/Creatinine Ratio 16.5 (8-20); C Reactive Protein 31.14 mg/L (<8.01); Calcium 9.4 mg/dL (8.6-10.3); EGFR Non-African American 61.3 (>60); Potassium 4.3 mmol/L (3.5-5.0); Total Bilirubin 0.9 mg/dL (0.2-1.0); Total Protein 6.7 g/dL (6.4-8.9)
[2018-04-05] MEDS ORDERED: fentaNYL* 50 MCG/ML 2 ML VIAL (100 MCG VIAL) IV SLOW PU ONE (18:38)
--- NOTE | 2018-04-05 19:12 | ED ---
Progress - Progress Note Progress Note: Patient was signed out from Dr. Nelson to Dr. Jordan upon provider shift change pending consult and disposition. Course/Dx - Course Course Of Treatment: Patient was signed out from Dr. Nelson to Dr. Jordan upon provider shift change pending Dr Cho consult and disposition. At 20:00 disscussed patient care with Dr. Cho, surgeon, who suspects that the patient has acute cholecystitis and a pleural efffusion. Dr. Cho agreed to admit the patient. He requested Dr. Castillo consult. At 20:20 discussed patient care with Dr. Castillo, hospitalist, who agreed to consult per Dr. Cho's request. Patient will be admitted to [facility]. Patient is agreeable with this plan. - Diagnoses Provider Diagnoses: Acute cholecystitis - Provider Notifications Discussed Care Of Patient With: Jese Cho Time Discussed With Above Provider: 20:00 Instructed by Provider To: Other - Dr. Cho suspects that the patient has acute cholecystitis and a pleural efffusion. Dr. Cho agreed to admit the patient. He requested Dr. Castillo consult. At 20:20 discussed patient care with Dr. Castillo, hospitalist, who agreed to consult per Dr. Cho's request. Discharge - Sign-Out/Discharge Documenting (check all that apply): Patient Departure, Receiving Sign-Out Receiving patient FROM: Lance Nelson - Discharge Plan Condition: Stable Disposition: ADMITTED TO [facility] - Billing Disposition and Condition Condition: STABLE Disposition: Admitted to [facility] - Attestation Statements Document Initiated by Scribe: Yes Documenting Scribe: Emely Finch Provider For Whom Ghazal is Documenting (Include Credential): Goyo Jordan MD Scribe Attestation: Emely Jackson, scribed for Goyo Jordan MD on 04/06/18 at 0628. Scribe Documentation Reviewed: Yes Provider Attestation: The documentation as recorded by the Emely soriano accurately reflects the service I personally performed and the decisions made by , Goyo Jordan MD Status of Scribe Document: Viewed
[2018-04-05] MEDS ORDERED: Ondansetron INJ* 2 MG/ML VIAL IV PRN ×2 (20:06→21:59)
[2018-04-05] MEDS ORDERED: Dextrose 50% Syringe 50 ML* 25 GM/50 ML SYRINGE IV PUSH PRN (20:09)
[2018-04-05] MEDS ORDERED: Morphine VIAL* 4 MG/ML VIAL (1 ml vial) IV PRN ×2 (20:10→21:59)
[2018-04-05] MEDS ORDERED: Metoprolol Tartrate IV* 1 MG/ML 5 ML VIAL IV PRN ×2 (20:11→22:00)
[2018-04-05] MEDS: HYDROmorphone INJ* 0.5 MG/0.5 ML SYRINGE IV PRN (20:25)
[2018-04-05] MEDS ORDERED: Lactated Ringers 1000 ML Bag* 1,000 ML IV SCH (21:00)
[2018-04-05] MEDS ORDERED: Ketorolac INJ* 15 MG/ML 1 ML VIAL IV PUSH SCH (21:00)
--- NOTE | 2018-04-05 21:01 | CONSULT ---
Subjective Date of Service: 04/05/18 Interval History: referring Dr yadira Cho code status full hpi this is a 78 yr old wm with sig hx of cad s/p cabg 2 v and biophysical aortic valve repair in the beginning of feb 2018 in [facility] presented to er with sig abd pain b/l lower quadrants started today that has getting worse---> he vomited and decided to come in for eval. last meal was lunch with only one fat free yogurt and one orange. pt has similar attacks in the beginning of mar ---> was going to have outpt procedure and was abd pain free when discharged. hida scan done 03/01 was neg. today his abd sono suggested acute cholecystitis ---> surgical service planned to do cholecystecomy in am ---> pt was started with ertapenum as per surgery. has been on cipro/flagyl until 3 days ago ( his intial wbc was neg on admission ) abd pain described b/l lower abd constant dull pain 10/10 with occasional sharp pain in between. intensity is 10/10 went down to 6-7/10 when seen. pain is reduced by opiods despite of recent cardiac surgery he has been in cardiac rehab and says he can exercise for half hour under supervision with no problem definitely is able to walk >2 blocks with no problem---> functional mets is > 4 his blood sugar was 74 ---> d5 added to his lr and will do f/s ck q 6 hr with no coverage pt has hx of paola on cpap at home ---> did not bring the cpap and can not come until in am ---> he was found to have ideiopathic ventricular conduction when he was asleep on tele ---> hospital cpap ordered for pt but he could not tolerate that. will nasal oxygen as tolerated since it is very close to his surgery in am phx type ii dm insulin dep cad s/p cabg 2v with biophyscial aortic valve replacement in the beginning of feb 2018 morbid obesity hyperilipidemia htn gout paola on cpap and compliant at home b12 def vit d def pshx s/p cabg two v 02/2018 s/p aortic valve replacement 02/2018 hx of rotator cuff repair *4 s/p hemorrohoidectomy social hx no cig no etoh able to walk indep comes from home Review of Systems - Measurements Intake and Output: Intake and Output Last 24 Hours 04/03/18 04/04/18 04/05/18 04/06/18 06:59 06:59 06:59 06:59 Intake Total 1000 Balance 1000 Weight 185 lb Intake: IV Fluids 1000 - Review of Systems General Comments: pertinent as per hpi Objective Active Medications: Dextrose (D50w Syringe 50 Ml*) 12.5 gm IV PUSH .FOR FS < 60 - SS PRN PRN Reason: FS < 60 Hydromorphone HCl (Dilaudid Inj*) 0.5 mg IV Q1H PRN PRN Reason: Pain - severe Last Admin: 04/05/18 20:25 Dose: 0.5 mg Lactated Ringer's (Lactated Ringers 1000 Ml Bag*) 1,000 mls @ 100 mls/hr IV PER RATE EDWIN Insulin Human Lispro (Humalog*) 0 units SUBCUT Q6HR EDWIN; Protocol Ketorolac Tromethamine (Toradol Inj*) 15 mg IV PUSH Q6H EDWIN Stop: 04/07/18 20:07 Metoprolol Tartrate (Lopressor Iv*) 5 mg IV Q6H PRN PRN Reason: BLOOD PRESSURE Morphine Sulfate (Morphine Vial*) 6 mg IV Q6H PRN PRN Reason: PAIN Ondansetron HCl (Zofran Inj*) 4 mg IV Q4H PRN PRN Reason: NAUSEA/VOMITING Vital Signs - 8 hr 04/05/18 04/05/18 04/05/18 16:42 16:43 17:00 Temperature 98.5 F Pulse Rate 101 77 Respiratory 10 19 15 Rate Blood Pressure 179/92 (mmHg) O2 Sat by Pulse 94 100 Oximetry 04/05/18 04/05/18 04/05/18 17:12 17:36 17:43 Temperature Pulse Rate 83 Respiratory 29 20 19 Rate Blood Pressure 186/161 187/71 (mmHg) O2 Sat by Pulse 98 Oximetry 04/05/18 04/05/18 04/05/18 17:50 18:00 18:13 Temperature Pulse Rate Respiratory 20 19 22 Rate Blood Pressure 164/105 171/60 (mmHg) O2 Sat by Pulse Oximetry 04/05/18 04/05/18 04/05/18 18:35 18:43 18:51 Temperature Pulse Rate 72 70 Respiratory 25 20 18 Rate Blood Pressure 164/68 170/67 (mmHg) O2 Sat by Pulse 98 98 Oximetry 04/05/18 04/05/18 04/05/18 19:00 19:13 19:43 Temperature Pulse Rate 81 78 77 Respiratory 20 13 20 Rate Blood Pressure 171/88 184/78 (mmHg) O2 Sat by Pulse 97 89 93 Oximetry 04/05/18 04/05/18 04/05/18 20:00 20:14 20:25 Temperature Pulse Rate Respiratory 15 22 Rate Blood Pressure 198/66 (mmHg) O2 Sat by Pulse Oximetry 04/05/18 20:40 Temperature 98.1 F Pulse Rate 78 Respiratory 22 Rate Blood Pressure 198/66 (mmHg) O2 Sat by Pulse 98 Oximetry Oxygen Devices in Use Now: Nasal Cannula Appearance: nad Eyes: No Scleral Icterus, PERRLA Ears/Nose/Mouth/Throat: NL Teeth, Lips, Gums, Clear Oropharnyx, Mucous Membranes Moist Neck: NL Appearance and Movements; NL JVP, Trachea Midline, No Thyroid Enlargement, Masses Respiratory: Symmetrical Chest Expansion and Respiratory Effort, Clear to Auscultation Cardiovascular: NL Sounds; No Murmurs; No JVD, RRR Abdominal: - - + bs generalized abd tenderness on ruq> luq > rlq> llq Extremities: No Edema, - - able to raise ue and le against gravity Skin: No Rash or Ulcers Neurological: Alert and Oriented x 3, NL Sensation, NL Muscle Strength and Tone - ekg ns no acute st t change with pvc Result Diagrams: 04/05/18 23:55 04/05/18 23:59 Assessment/Plan - Billing Plan By Medical Problem: this is a 78 yr old wm with hx of cabg 2 v+ biophysical aortic valve replacement in the beginning of feb 2018 was recently d/cd 03/31 after hida came back neg presented back with abd pain. his abd sono showe acute cholecystitis -- -> pt has been on flagyl and cipro until 3 days ago ---> he is going to or in am for cholecystectomy ---> he is able to walk > 2 blocks and has been participating in cardiac rehab ---> able to excercise for half an hour under supervision ---> fucntional mets is >4 and is optimized for surgery a/p 1. acute cholecystitis - or in am - continue ertapenum as per surgery - pain med and zofran as per surgery 2 type ii dm insulin dm f/s was 76 on admission - add d5 to lr - f/s ck q 4-6 hr with no coverage 3 paola on cpap - will have bring his cpap in am 4 cad with aortic valve replacement - tele - continue his outpt lopressor changed to iv - ck his mag and ionized calcium in am 5 htn sbp is 170 - due to his npo status and short stay can not push iv jazzmine --> will use hydralazine prn iv while he is npo along with iv lopressor --> increased hydralazine to q4 prn 6 vit d and vit b12 def - ck level in am VTE PPX: heparin 5000 times one at 11 pm then scd while waiting for surgery Diet: npo Code Status: full Admission Status and Rationale:
[2018-04-05] MEDS ORDERED: LORazepam INJ* 2 MG/ML 1 ML VIAL IV PUSH ONE (22:00)
[2018-04-05] MEDS ORDERED: hydrALAZINE IV* 20 MG/ML VIAL IV SLOW PU PRN ×2 (22:07→22:09)
[2018-04-05] MEDS ORDERED: Heparin VIAL(*) 5000 UNITS/ML VIAL (FIVE THOUSAND) SUBCUT ONE (23:00)
[2018-04-05] MEDS ORDERED: D5LR 1000 ML BAG* 1,000 ML IV SCH (23:00)
[2018-04-06] MEDS ORDERED: Insulin REGULAR(*) 1 UNITS UNIT SUBCUT SCH
[2018-04-06] MEDS ORDERED: Insulin LISPRO* 1 UNITS UNIT SUBCUT SCH
[2018-04-06 00:15] LABS: ABS Basophils 0.1 10^3/ul (0-0.2); ABS Eosinophils 0 10^3/ul (0-0.6); ABS Lymphocytes 0.4 10^3/ul (1.0-4.8); ABS Monocytes 0.7 10^3/ul (0-0.8); ABS Neutrophils 6.7 10^3/ul (1.5-7.7); ABS Nucleated RBC 0 10^3/ul; Eosinophil % 0.6 %; Hematocrit 36 % (42-52); Hemoglobin 11.9 g/dl (14.0-18.0); Lymphocyte % 4.8 %; Mean Corpuscular HGB Conc 33 g/dl (31-36); Mean Corpuscular Hemoglobin 30 pg (27-31); Mean Corpuscular Volume 90 fL (80-94); Mean Platelet Volume 8.5 fL (7.4-10.4); Nucleated Red Blood Cells % 0; Platelet Count 226 10^3/ul (150-450); Red Blood Count 3.95 10^6/ul (4.00-5.40); Red Cell Distribution Width 15 % (10.5-15); White Blood Count 7.9 10^3/ul (3.5-10.8)
[2018-04-06 00:23] LABS: Activated Partial Thrombo Time 33.1 seconds (26.0-36.3); INR 1.17 (0.77-1.02)
[2018-04-06] MEDS: Ertapenem* 1 GM in NS 0.9% 50 ML* 50 ML IVPB SCH (00:23)
[2018-04-06 00:35] LABS: Albumin 3.4 g/dL (3.2-5.2); Albumin/Globulin Ratio 1.2 (1-3); Calcium 8.8 mg/dL (8.6-10.3); EGFR Non-African American 72.1 (>60); Globulin 2.8 g/dL (2-4); Potassium 4.9 mmol/L (3.5-5.0); Total Bilirubin 0.9 mg/dL (0.2-1.0); Total Protein 6.2 g/dL (6.4-8.9)
[2018-04-06 00:55] LABS: Magnesium 1.4 mg/dL (1.9-2.7)
[2018-04-06] MEDS ORDERED: Lactated Ringers 1000 ML Bag* 1,000 ML IV ONE (01:59)
[2018-04-06] MEDS ORDERED: Dextrose 50% Syringe 50 ML* 25 GM/50 ML SYRINGE IV PUSH PRN (01:59)
[2018-04-06] MEDS ORDERED: Magnesium Sulfate 2 GM IV* 2 GM/50 ML BAG IVPB ONE ×2 (01:59→08:45)
[2018-04-06] MEDS: HYDROmorphone INJ* 0.5 MG/0.5 ML SYRINGE IV PRN ×2 (02:57→06:19)
[2018-04-06 05:46] LABS: ABS Basophils 0.1 10^3/ul (0-0.2); ABS Eosinophils 0 10^3/ul (0-0.6); ABS Lymphocytes 0.5 10^3/ul (1.0-4.8); ABS Neutrophils 5.5 10^3/ul (1.5-7.7); ABS Nucleated RBC 0 10^3/ul; Eosinophil % 0.4 %; Hematocrit 34 % (42-52); Hemoglobin 11.3 g/dl (14.0-18.0); Lymphocyte % 6.6 %; Mean Corpuscular HGB Conc 33 g/dl (31-36); Mean Corpuscular Hemoglobin 30 pg (27-31); Mean Corpuscular Volume 90 fL (80-94); Mean Platelet Volume 8.4 fL (7.4-10.4); Nucleated Red Blood Cells % 0; Platelet Count 220 10^3/ul (150-450); Red Blood Count 3.79 10^6/ul (4.00-5.40); Red Cell Distribution Width 15 % (10.5-15); White Blood Count 7.2 10^3/ul (3.5-10.8)
[2018-04-06 06:04] LABS: Albumin 3.2 g/dL (3.2-5.2); Albumin/Globulin Ratio 1.2 (1-3); BUN/Creatinine Ratio 17.5 (8-20); Calcium 8.7 mg/dL (8.6-10.3); EGFR Non-African American 74.7 (>60); Globulin 2.7 g/dL (2-4); Magnesium 1.8 mg/dL (1.9-2.7); Total Bilirubin 0.8 mg/dL (0.2-1.0); Total Protein 5.9 g/dL (6.4-8.9)
[2018-04-06 06:06] LABS: Potassium 5.1 mmol/L (3.5-5.0)
[2018-04-06] MEDS: Insulin LISPRO* 1 UNITS UNIT SUBCUT SCH ×4 (06:14→21:34)
[2018-04-06] MEDS: hydrALAZINE IV* 20 MG/ML VIAL IV SLOW PU SCH ×3 (06:15→17:50)
[2018-04-06] MEDS ORDERED: ceFOXitin 2 GM IVPREMIX* 2 GM/50 ML BAG ONE (11:14)
[2018-04-06] MEDS ORDERED: DiMENhydriNATE IV* 50 MG/ML VIAL IV PUSH PRN (14:33)
[2018-04-06] MEDS ORDERED: HYDROmorphone INJ1* 1 MG/ML SYRINGE IV PRN (14:33)
[2018-04-06] MEDS ORDERED: Ondansetron INJ* 2 MG/ML VIAL IV PRN (14:33)
[2018-04-06] MEDS ORDERED: Naloxone* 0.4 MG/ML 1 ML VIAL IV PRN (14:33)
[2018-04-06] MEDS ORDERED: Scopolamine 1.5 mg* PATCH TRANSDERM PRN (14:33)
[2018-04-06] MEDS ORDERED: fentaNYL* 50 MCG/ML 2 ML VIAL (100 MCG VIAL) IV PRN (14:33)
[2018-04-06] MEDS ORDERED: Insulin LISPRO* 1 UNITS UNIT SUBCUT ONE (15:49)
[2018-04-06] MEDS ORDERED: hydrALAZINE IV* 20 MG/ML VIAL IV SLOW PU PRN (17:11)
[2018-04-06] MEDS: NS 0.9% 1000 ML* 1,000 ML IV SCH (17:30)
[2018-04-06] MEDS ORDERED: Acetaminophen TAB* 325 MG PO PRN (17:44)
--- NOTE | 2018-04-06 17:58 | PN ---
Hospitalist Progress Note Date of Service: 04/06/[address] Garcia after surgery. Patient is now back on the floor. I did not see him today, but have reviewed his chart. For DM, I have d/c'd the D5 and started NS as he has been hyperglycemic. Will continue lispro SS. Can resume levimir tomorrow, dose to be determined. For LISSETH , he should use his home CPAP. For CAD, resume home metoprolol and atorvastatin. Hold aspirin per surgical recommendations. Continue telemetry. For HTN, resume metoprolol. Continue hydralazine PRN. Will add back other antihypertensives tomorrow if BP is stable.
--- NOTE | 2018-04-06 20:20 | OP ---
CC: Dr. Fernandez; Dr. Russell * DATE OF OPERATION: 04/06/18 - ROOM #343 DATE OF : 38 SURGEON: Bc Garcia MD NURSE CLINICAL: Benita Aj NP ANESTHESIOLOGIST: Dr. Crook. ANESTHESIA: General anesthetic, local infiltration. PRE-OP DIAGNOSIS: Acute cholecystitis. POST-OP DIAGNOSIS: Acute cholecystitis. OPERATIVE PROCEDURE: Laparoscopic cholecystectomy. DESCRIPTION OF PROCEDURE: The patient was supine on the operative table. After adequate general anesthetic, compression stockings, Carolin Hugger warmer and intravenous antibiotics, the abdomen was prepped with antiseptic, draped in a sterile fashion. Local infiltrative anesthesia was administered. Small umbilical incision was created. Blunt port cannula was placed. Insufflation was carried out with carbon dioxide. Additional cannulae, 12-mm subxiphoid and 5-mm right upper quadrant, right anterior axillary line were placed through small stab wounds under direct vision. The gallbladder was acutely inflamed. The omentum was adherent. This was gradually peeled off and the gallbladder was tense and thick walled. It was drained off its bile without difficulty. There was no stone spillage. The gallbladder was tented upward. Dissection was carried down around the duct and artery which were readily identified, clipped and divided. Gallbladder was taken off the liver bed without difficulty using electrocautery. There was no stone spillage. The gallbladder was placed in a retrieval bag. The operative field was well irrigated with warm saline solution. Free fluid was suctioned out. Everything was in good condition. The cannulae were removed. Pneumoperitoneum was allowed to escape. The two larger incisions were closed with 0 Vicryl for the fascia and then 5- 0 Vicryl was used for skin in all cases, followed by Steri-Strips. He tolerated the procedure well, was awakened and brought to Recovery in good condition. There were no complications. No drains. Pathologic specimen is gallbladder. Sponge and instrument counts correct. Estimated blood loss 100 to 150 mL. [id number]/[facility] #: [id number] MTDD
[2018-04-06] MEDS: oxyCODONE/Acetamin 5/325 MG* TAB PO PRN (21:31)
[2018-04-06] MEDS: Metoprolol Tartrate TAB* 25 MG PO SCH (21:32)
[2018-04-07] MEDS: Ertapenem* 1 GM in NS 0.9% 50 ML* 50 ML IVPB SCH (00:24)
[2018-04-07] MEDS: NS 0.9% 1000 ML* 1,000 ML IV SCH (04:35)
[2018-04-07] MEDS: oxyCODONE/Acetamin 5/325 MG* TAB PO PRN ×2 (04:37→09:57)
[2018-04-07 07:48] VITALS: BP 147/55
[2018-04-07] MEDS: Metoprolol Tartrate TAB* 25 MG PO SCH (08:46)
[2018-04-07] MEDS ORDERED: Atorvastatin* 20 MG TAB PO SCH (09:00)
[2018-04-07] MEDS: Insulin LISPRO* 1 UNITS UNIT SUBCUT SCH (09:27)
--- NOTE | 2018-04-07 10:17 | DS ---
CC: Dr. Noa Fernandez * DATE OF ADMISSION: 04/05/2018. DATE OF DISCHARGE: 04/07/2018. ATTENDING SURGEON: Dr. Bc Garcia * (ELIZABETH Berry dictating). HOSPITAL COURSE: Please refer to admission history and physical and operative note for details. The patient was scheduled for laparoscopic cholecystectomy on 04/06/2018 for calculus biliary colic. However, the afternoon of 04/05/2018 he was experiencing severe pain and subsequently was admitted for pain management and IV antibiotics (Ertapenem). He was taken to the operating room on 04/06/2018 at which time laparoscopic cholecystectomy was performed by Dr. Garcia. The findings included acute cholecystitis. There were no intraoperative complications. The patient was seen by Dr. Gracia on the morning of discharge. PHYSICAL EXAMINATION: Vital Signs: Temperature 98.3, blood pressure 147/55, pulse 87, respirations 16, room air saturation 92 percent. See separate note from Dr. Garcia for exam. The patient is feeling much better as of the morning of discharge. It was deemed unnecessary for him to continue any additional antibiotics. I discussed with him instructions regarding diet, wound care, and activity. He has a follow -up with our office on 04/13/2018. ELIZABETH BERRY [id number]/[facility] #: [id number] MTDD
--- NOTE | 2018-04-07 12:49 | PN ---
Progress Note - Progress Note Date of Service: 04/07/18 Note: pod#1 lap josé miguel Afeb, Voiding Petros po's Feels a lot better, much less pain Abd obese soft, min tender, incis clean Impr: Resolving well s/p lap josé miguel for acute GB Plan discharge
[2018-04-09] MEDS ORDERED: Scopolamine PATCH Remove* 1 NOTE MISC PATCH OFF ONE (14:34)
== END 2018-04-07 11:00 | disposition home or self-care (01) | DRG 419 ==
LOC: ED 16:37 → SSU 20:06
PROVIDERS: ADMIT Surgery; ATTEND Surgery
PROC: 0FT44ZZ Resection of Gallbladder, Percutaneous Endoscopic Approach (ICD-10-PCS; principal; 2018-04-06 10:45)
DX: K80.00 Calculus of gallbladder with acute cholecystitis without obstruction (principal); E11.65 Type 2 diabetes mellitus with hyperglycemia; E66.01 Morbid (severe) obesity due to excess calories; I11.9 Hypertensive heart disease without heart failure; E78.5 Hyperlipidemia, unspecified; M10.9 Gout, unspecified; I25.10 Atherosclerotic heart disease of native coronary artery without angina pectoris; G47.33 Obstructive sleep apnea (adult) (pediatric); E53.8 Deficiency of other specified B group vitamins; E55.9 Vitamin D deficiency, unspecified; Z68.27 Body mass index [BMI] 27.0-27.9, adult; Z95.1 Presence of aortocoronary bypass graft; Z79.4 Long term (current) use of insulin; Z95.2 Presence of prosthetic heart valve; Z87.891 Personal history of nicotine dependence; Z79.82 Long term (current) use of aspirin; Z79.891 Long term (current) use of opiate analgesic; Z79.899 Other long term (current) drug therapy; Z88.5 Allergy status to narcotic agent; Z88.8 Allergy status to other drugs, medicaments and biological substances
CPT/HCPCS: 36415; 71045; 76705; 80053; 82150; 82330; 83605; 83690; 83735; 83880; 84484; 85025; 85610; 85730; 86140; 86850; 86900; 86901; 88304; 93005; 94660; 99285; A9270-GY; J0360; J0694; J1170; J1335; J1644; J2060; J2270; J3010; J3475; J3490

== ENCOUNTER 2022-03-12 07:21 | Observation (INO) ==
[2022-03-12] MEDS ORDERED: Morphine 4 MG/ML VIAL (1 ml) IV ONE ×3 (07:48→11:48)
[2022-03-12] MEDS ORDERED: Ondansetron 4 mg VIAL 2 MG/ML 2 ml VIAL IV ONE (07:48)
[2022-03-12] MEDS ORDERED: Lactated Ringers 1000 ml BAG 1,000 ML IV ONE (08:03)
[2022-03-12 08:16] LABS: ABS Eosinophils 0.1 10^3/ul (0-0.6); ABS Lymphocytes 0.6 10^3/ul (1.0-4.8); ABS Monocytes 0.6 10^3/ul (0-0.8); ABS Neutrophils 5.5 10^3/ul (1.5-7.7); Eosinophil % 1.2 %; Hematocrit 35 % (42-52); Hemoglobin 11.6 g/dL (14.0-18.0); Lymphocyte % 8.8 %; Mean Corpuscular HGB Conc 33 g/dL (31-36); Mean Corpuscular Hemoglobin 32 pg (27-31); Mean Corpuscular Volume 96 fL (80-94); Mean Platelet Volume 9.7 fL (7.4-10.4); Platelet Count 157 10^3/uL (150-450); Red Blood Count 3.66 10^6 /uL (4.18-5.48); Red Cell Distribution Width 14 % (10-15); White Blood Count 6.8 10^3/uL (3.5-10.8)
[2022-03-12 08:43] LABS: Anion Gap 8 mmol/L (2-11); Blood Urea Nitrogen 28 mg/dL (6-24); CO2 Carbon Dioxide 25 mmol/L (22-32); Chloride 105 mmol/L (101-111); Glucose 64 mg/dL (70-100); Potassium 4.2 mmol/L (3.5-5.0); Sodium 138 mmol/L (135-145)
[2022-03-12 08:44] LABS: ALT 13 U/L (7-52); AST 16 U/L (13-39); Albumin 3.7 g/dL (3.2-5.2); Albumin/Globulin Ratio 1.6 (1-3); Alkaline Phosphatase 79 U/L (35-149); Globulin 2.3 g/dL (2-4); eGFR CKD-EPI 65.2 (>60)
[2022-03-12] MEDS ORDERED: Iodixanol (CONTRAST) 320 MG/ML 100 ML SDV IV ONE (09:09)
[2022-03-12] MEDS ORDERED: metroNIDAZOLE IV 500 MG/100ML 500 MG/100 ML BAG IVPB ONE (09:58)
[2022-03-12] MEDS ORDERED: Ciprofloxacin 400mg IVPREMIX 400 MG/200 ML BAG IVPB ONE (09:59)
[2022-03-12 10:09] LABS: Urine Appearance Clear; Urine Bilirubin Negative (Negative); Urine Blood Negative (Negative); Urine Color Yellow; Urine Glucose Negative (Negative); Urine Ketones Negative (Negative); Urine Nitrite Negative (Negative); Urine Protein 1+(30 mg/dL) (Negative); Urine Specific Gravity 1.012 (1.002-1.030); Urine Urobilinogen Negative (Negative)
[2022-03-12 10:11] LABS: Urine Bacteria Absent (Absent); Urine Red Blood Cell Trace(0-2/hpf) (Absent); Urine White Blood Cell Trace(0-5/hpf) (Absent)
[2022-03-12] MEDS ORDERED: Acetaminophen IV 1 GM/100ML 1,000 MG/100 ML BAG IV PRN (12:41)
[2022-03-12] MEDS ORDERED: Dextrose 50% Syringe 50 ml 25 GM/50 ML SYRINGE IV PUSH PRN (12:58)
[2022-03-12] MEDS ORDERED: Lactated Ringers 1000 ml BAG 1,000 ML IV SCH (13:00)
[2022-03-12] MEDS: Heparin 5000 UNITS/ML 1 mL VIAL SUBCUT SCH ×2 (13:34→21:41)
[2022-03-12] MEDS: cefTRIAXone 1 gm/50 mL D5W 1 GM/50 ML BAG IV SCH (13:34)
[2022-03-12 13:48] LABS: C Reactive Protein < 1.00 mg/L (<8.01)
[2022-03-12] MEDS: metroNIDAZOLE IV 500 MG/100ML 500 MG/100 ML BAG IVPB SCH (17:34)
[2022-03-12] MEDS: Morphine 4 MG/ML VIAL (1 ml) IV PRN (21:30)
[2022-03-12] MEDS ORDERED: Ciprofloxacin 400mg IVPREMIX 400 MG/200 ML BAG IVPB SCH (22:00)
[2022-03-13] MEDS: metroNIDAZOLE IV 500 MG/100ML 500 MG/100 ML BAG IVPB SCH ×3 (02:47→18:16)
[2022-03-13] MEDS: Morphine 4 MG/ML VIAL (1 ml) IV PRN (04:32)
[2022-03-13] MEDS: Heparin 5000 UNITS/ML 1 mL VIAL SUBCUT SCH (06:35)
[2022-03-13 06:47] LABS: ABS Lymphocytes 0.7 10^3/ul (1.0-4.8); ABS Monocytes 0.9 10^3/ul (0-0.8); ABS Neutrophils 16.2 10^3/ul (1.5-7.7); Hematocrit 32 % (42-52); Hemoglobin 10.5 g/dL (14.0-18.0); Lymphocyte % 3.7 %; Mean Corpuscular HGB Conc 33 g/dL (31-36); Mean Corpuscular Hemoglobin 32 pg (27-31); Mean Corpuscular Volume 97 fL (80-94); Mean Platelet Volume 9.6 fL (7.4-10.4); Platelet Count 128 10^3/uL (150-450); Red Cell Distribution Width 14 % (10-15); White Blood Count 17.8 10^3/uL (3.5-10.8)
[2022-03-13] MEDS: Cholecalciferol (VIT D3) 1,000 unit TAB PO SCH (08:05)
[2022-03-13 08:06] LABS: Calcium 8.2 mg/dL (8.6-10.3); Magnesium 1.3 mg/dL (1.9-2.7); Potassium 4.8 mmol/L (3.5-5.0)
[2022-03-13] MEDS ORDERED: Magnesium Sulf 4 GM/100 ML IV 4,000 MG/100 ML BAG IVPB ONE (08:08)
[2022-03-13 08:12] LABS: eGFR CKD-EPI 50.3 (>60)
[2022-03-13] MEDS ORDERED: CMCS:Epleronone 25 mg TAB (NF) PO SCH (09:00)
[2022-03-13] MEDS: CMCS:Epleronone 25 mg TAB (NF) PO SCH (09:08)
[2022-03-13] MEDS: Enoxaparin 40 MG/0.4 ML SYR SUBCUT SCH (09:21)
[2022-03-13] MEDS: PTO:Multivitamins/Mins AREDS2 (NF) CAP PO SCH ×2 (11:00→21:11)
[2022-03-13] MEDS ORDERED: Insulin GLARGINE 100 un/ml 10 ml VIAL SUBCUT ONE (13:33)
[2022-03-13 13:59] LABS: Calcium 8.5 mg/dL (8.6-10.3); Potassium 4.5 mmol/L (3.5-5.0); eGFR CKD-EPI 50.3 (>60)
[2022-03-13] MEDS: cefTRIAXone 1 gm/50 mL D5W 1 GM/50 ML BAG IV SCH (15:09)
[2022-03-13] MEDS: Calcium Carb (TUMS) 500 mg CHEW TAB PO PRN ×2 (16:36→21:11)
[2022-03-14] MEDS: Ondansetron 4 mg VIAL 2 MG/ML 2 ml VIAL IV PRN ×2 (00:32→06:42)
[2022-03-14] MEDS: metroNIDAZOLE IV 500 MG/100ML 500 MG/100 ML BAG IVPB SCH ×2 (02:08→10:21)
[2022-03-14 06:17] LABS: ABS Lymphocytes 0.7 10^3/ul (1.0-4.8); ABS Monocytes 1.2 10^3/ul (0-0.8); ABS Neutrophils 13.7 10^3/ul (1.5-7.7); Hematocrit 32 % (42-52); Hemoglobin 10.3 g/dL (14.0-18.0); Lymphocyte % 4.4 %; Mean Corpuscular HGB Conc 32 g/dL (31-36); Mean Corpuscular Hemoglobin 31 pg (27-31); Mean Corpuscular Volume 97 fL (80-94); Mean Platelet Volume 10.1 fL (7.4-10.4); Platelet Count 127 10^3/uL (150-450); Red Blood Count 3.28 10^6 /uL (4.18-5.48); Red Cell Distribution Width 14 % (10-15); White Blood Count 15.6 10^3/uL (3.5-10.8)
[2022-03-14 06:38] LABS: Calcium 8.6 mg/dL (8.6-10.3); Magnesium 1.9 mg/dL (1.9-2.7); eGFR CKD-EPI 58.8 (>60)
[2022-03-14] MEDS: Calcium Carb (TUMS) 500 mg CHEW TAB PO PRN (07:30)
[2022-03-14] MEDS: Enoxaparin 40 MG/0.4 ML SYR SUBCUT SCH (08:20)
[2022-03-14] MEDS: Cholecalciferol (VIT D3) 1,000 unit TAB PO SCH (08:20)
[2022-03-14] MEDS: PTO:Multivitamins/Mins AREDS2 (NF) CAP PO SCH (08:26)
[2022-03-14] MEDS: CMCS:Epleronone 25 mg TAB (NF) PO SCH (08:55)
[2022-03-14] MEDS ORDERED: Insulin GLARGINE 100 un/ml 10 ml VIAL SUBCUT SCH (09:00)
[2022-03-14 11:02] VITALS: BP 159/58
== END 2022-03-14 12:20 | disposition home or self-care (01) ==
LOC: ED 07:21 → EDHOLD 07:21 → SUATTDRO 12:33 → MED 20:05
PROVIDERS: ADMIT Hospitalist; ATTEND Internal Medicine